=== PATIENT | female | born 1980 | race Caucasian/White ===

== ENCOUNTER 2024-07-03 00:04 | Emergency (ER) | payer MEDICARE, MEDICAID, SELFPAY ==
[2024-07-03 00:06] VITALS: BP 165/95; PULSE 88; RESP 16; TEMP 36; O2SAT 98
[2024-07-03 00:27] LABS: Absolute Neutrophil Count 11.8 X10^3/uL (2.0-7.7); Basophil# 0.02 X10^3/uL; Basophil% 0.2 % (0-1); Hematocrit 44.1 % (37-47); Hemoglobin 15.7 g/dL (12.0-15.0); Lymphocyte % 9.1 % (19-41); Mean Corp Hgb Conc 35.6 g/dL (32-36); Mean Corpuscular Hgb 31.2 pg (27.0-32.0); Mean Corpuscular Volume 87.7 fL (81-99); Monocyte# 0.22 X10^3/uL; Monocyte% 1.7 % (0-10); NRBC Flagged by Analyzer 0 % (0-5); Neutrophil # 11.76 X10^3/uL (2.7-7.7); Neutrophil % 88.6 % (47-70); Platelet Count 281 K/mm3 (150-450); RBC Distribution Width CV 13.5 % (11.6-14.6); RBC Distribution Width SD 43.2 fl (35.1-43.9); Red Blood Count 5.03 M/mm3 (4.2-5.4); White Blood Count 13.3 K/mm3 (4.4-11.0)
[2024-07-03 00:38] VITALS: BMI 31.6
[2024-07-03 00:57] LABS: Internal QC Validated? YES +Cl - CLEAR BKGD; Pregnancy, Serum, hCG Quali. NEGATIVE Negative
--- NOTE | 2024-07-03 01:25 | CT_ITS ---
PROCEDURE: ABDOMEN/PELVIS W IV CONT ONLY REASON FOR EXAM: ABD PAIN TECHNIQUE: Abdomen and pelvis CT with intravenous contrast. Coronal and sagittal reformatted images IV CONTRAST: 94 cc Isovue 370 COMPARISON: None. FINDINGS: Lung bases: Clear Liver: Unremarkable. Gallbladder: Status post cholecystectomy. Spleen: Unremarkable. Pancreas: Unremarkable. Adrenals: Unremarkable. Kidneys: Unremarkable. Bladder: Collapsed. Reproductive Organs: A couple of follicular cyst right ovary measuring up to 1.9 cm. No adjacent free fluid seen. Left ovary and uterus appear within limits Bowel: No bowel dilation, free air or free fluid.. Appendix: Normal caliber without secondary signs. Lymph nodes: No suspicious lymph node enlargement. Vasculature: Major vascular structures are unremarkable. Peritoneum / Retroperitoneum: No ascites. No free air. Bones: Right acetabular subchondral cyst axial 135. CT/Abdomen/Pelvis W IV Cont ONLY IMPRESSION: Study appears within limits as above. Status post cholecystectomy. One or more dose reduction techniques were used (e.g., Automated exposure contr ol, adjustment of the mA and/or kV according to patient size, use of iterative reconstruction technique). Reading Location: [id number]
[2024-07-03] MEDS: Ondansetron 4 MG/2 ML Vial IV (01:41)
[2024-07-03] MEDS: 0.9% Normal Saline (1000mL) 1,000 ML 999 ML IV (01:41)
[2024-07-03] MEDS: Morphine 4 MG/ML Syringe IV (01:41)
[2024-07-03 01:58] LABS: Lipase 45 U/L (13-75)
[2024-07-03 02:05] VITALS: BP 126/90; PULSE 81; RESP 16; O2SAT 99
[2024-07-03 02:08] LABS: ALB/GLOB Ratio 1.4 RATIO (0.9-2.4); AST(SGOT) 23 U/L (<=31); Alanine Aminotransfer ALT/SGPT 27 U/L (<=34); Albumin, Serum 4.8 g/dL (3.5-5.0); Alkaline Phosphatase 72 U/L (35-104); Anion Gap 18 (5-15); BUN 23 mg/dL (4-19); BUN/Creat Ratio 21.2 RATIO (10-20); Carbon Dioxide 18.9 mmol/L (21.0-32.0); Chloride 107 mmol/L (98-108); Creatinine, Serum 1.06 mg/dL (0.70-1.20); EST Glomerular Filtration Rate 67 (>60); Estimated Creatinine Clearance 74.15 ml/min (50-250); Globulin 3.3 g/dL (2.2-4.2); Glucose 205 mg/dL (70-99); Potassium 4.2 mmol/L (3.3-5.1); Protein, Total 8.1 g/dL (5.9-8.4); Sodium Level 144 mmol/L (133-145); Total Bilirubin 0.32 mg/dL (0.00-1.30)
[2024-07-03] MEDS: Lorazepam 2 MG/ML WCH Syringe 1 MG IV (02:16)
[2024-07-03 03:45] LABS: Bacteria 0 SEEN /hpf (None Seen); Mucous, Urine 0 SEEN /hpf (<or=2+); Squamous Epithelial Cells - UA 0 SEEN /hpf (5-10); White Blood Cells 0 SEEN /hpf (0-5)
[2024-07-03 03:47] LABS: Color, Urine Yellow (Yellow); Glucose, Dipstick Normal (Normal); Ketone-Dipstick Negative (Negative); Leukocyte Esterase-Dipstick Negative /ul (Negative); Nitrite-Dipstick Negative (Negative); Occult Blood-Urine 25 /ul (Negative); Protein-Dipstick 30 mg/dl (Negative); Urine Bilirubin Dipstick Negative (Negative); Urine Clarity Clear (Clear); Urine Urobilinogen Normal (Normal)
[2024-07-03 03:59] LABS: Red Blood Cells-Urine 0 SEEN /hpf (0-5)
[2024-07-03 04:00] VITALS: BP 128/76; PULSE 72; RESP 16; O2SAT 98
--- NOTE | 2024-07-03 04:09 | EX.ED.DYSGE1 ---
HPI History of Present Illness Chief Complaint: Nausea/Vomiting/Diarrhea Informant: patient and family Narrative Narrative: Patient is a 43-year-old female with past medical history of hypertension as well as anxiety. She states that she typically controls her anxiety with Ativan which she takes only every once in a while. She states roughly a week ago she ran out of her meds and missed her appointment to get it refilled. She states that she went to bed normally on Tuesday night but then awoke Tuesday morning around 6 AM as she normally would but noticed generalized abdominal discomfort and then developed bouts of vomiting and diarrhea. She denies any known sick contacts recent antibiotic use or travel outside the country. She states that she tried controlling her symptoms with [id number] medication and time but throughout the day the symptoms have not improved and therefore she comes in for evaluation Of note the patient's family member states that when she runs out of her anxiety medication these types of symptoms such as abdominal discomfort vomiting diarrhea and urinary frequency are common [facility] Medical History (Updated 07/03/24 @ 04:[address] Moses Vaz, DO) Cyclic vomiting syndrome Home Medications ?Medication ?Instructions ?Recorded ?Last Taken ?Type albuterol sulfate 90 mcg/actuation 1 puff inhalation Q4H PRN PRN 07/03/24 Unknown History aerosol inhaler dyspnea amlodipine 5 mg tablet 5 mg PO DAILY blood pressure 07/03/24 Unknown History atorvastatin 80 mg tablet 80 mg PO QHS cholesterol 07/03/24 Unknown History gabapentin 100 mg capsule 200 mg PO TID 07/03/24 Unknown History lamotrigine 150 mg tablet 150 mg PO BID 07/03/24 Unknown History lorazepam 0.5 mg tablet 0.5 mg PO DAILY PRN anxiety 07/03/24 Unknown History lorazepam 0.5 mg tablet (Ativan) 0.5 mg PO TID PRN anxiety 5 days 07/03/24 Unknown Rx #15 tabs metoprolol succinate 50 mg 50 mg PO DAILY blood pressure 07/03/24 Unknown History tablet,extended release 24 hr mycophenolate mofetil 500 mg tablet 1,000 mg PO BID 07/03/24 Unknown History ondansetron 4 mg disintegrating 4 mg PO TID PRN nausea and 07/03/24 Unknown Rx tablet vomiting #21 tabs pantoprazole 40 mg tablet,delayed 40 mg PO BID 07/03/24 Unknown History release Allergy/AdvReac Type Severity Reaction Status Date / Time bee venom protein (honey bee) Allergy Severe Anaphylaxis Verified 07/03/24 00:20 tomato AdvReac Intermediate GASTROINTESTINAL Verified 07/03/24 00:20 UPSET Family History no significant family his Surgical History (Updated 07/03/24 @ 00:40 by Leonardo Calderon) History of cholecystectomy Social History Smoking Status: Current every day smoker tobacco type: cigarettes ROS ROS ED Constitutional Constitutional ED: Denies chills or fever(s) Eyes Eyes: Denies blurry vision or change in vision ENT ENT ED: Denies sore throat Cardiovascular Cardiovascular: Denies chest pain Respiratory/Chest Respiratory/Chest: Denies cough or dyspnea Gastrointestinal Gastrointestinal: Reports abdominal pain, diarrhea, nausea and vomiting Genitourinary Genitourinary ED: Reports urinary frequency; Denies dysuria or hematuria Musculoskeletal Musculoskeletal: Denies myalgias Integumentary Denies rash Neurologic Neurologic: Denies headache(s) Psychiatric Psychiatric: Reports anxiety; Denies suicidal ideation or suicidal thoughts Hematologic/Lymphatic Hematologic/Lymphatic: Denies easy bleeding or easy bruising EXAM Physical Exam Const Vital Signs: 07/03/24 00:06 07/03/24 02:05 07/03/24 04:00 Temperature 96.8 F L Temperature Source Temporal Pulse Rate 88 81 72 Respiratory Rate 16 16 16 Blood Pressure 165/95 H 126/90 H 128/76 H Blood Pressure Mean 118 102 93 Pulse Ox 98 99 98 Oxygen Delivery Method Room Air Room Air Room Air 07/03/24 04:19 Temperature 97.7 F L Temperature Source Pulse Rate 77 Respiratory Rate 16 Blood Pressure 128/76 H Blood Pressure Mean 93 Pulse Ox 98 Oxygen Delivery Method Positive well nourished, well developed and obese General Appearance ED: well developed; Negative for pallor Nutritional Appearance: obese HEENT Reports dry mucous membranes HEENT Narrative: Mucous membranes are dry and tacky No secondary findings in the posterior pharynx to suggest infection Mouth ED: Yes dry mucous membranes Mouth: dry mucous membranes Eyes PERRL and EOMs intact bilaterally General Eye ED: Negative for scleral icterus Neck supple Neck Narrative: No nuchal rigidity or meningeal signs Resp normal respiratory effort and clear to auscultation bilaterally Cardio regular rate and regular rhythm Rate: other Other Details: Heart is regular rate and rhythm without murmurs rubs or gallop Radial and carotid pulses are equal and symmetric GI non-distended and no masses GI Narrative: Abdomen is soft and nondistended with hyperactive bowel sounds Patient has mild diffuse pain with palpation No voluntary guarding or rigidity or pulsatile mass Auscultation: hyperactive bowel sounds Palpation: soft Back/Spine no CVA tenderness Extremity normal to inspection Neuro oriented x3, CN's II-XII intact bilaterally and no sensory deficits noted Sensorium / Orientation: alert Motor Exam: strength 5/5 throughout Psych Mood & Affect: anxious Skin no rashes or lesions noted and No skin turgor normal Skin Narrative: Skin turgor is increased General Skin Exam: Negative for jaundice or pallor MDM MDM MDM Narrative Medical decision making narrative: Patient presented to the ER hypertensive but otherwise with stable vitals. She reported roughly 24 hours of recurrent vomiting and diarrhea. Differential diagnosis is for potential benzodiazepine withdrawal versus anxiety versus viral stomach infection such as norovirus or rotavirus. Patient her exam showing dehydration there is concern for acute kidney injury or clinically significant electrolyte abnormality. Patient also could have potential acute pancreatitis or complication or UTI. Patient blood work was obtained and shows a white count of 13.3 with left shift as neutrophil count is elevated at 12. This could be stress response but in order to ensure it is not from a secondary GI infection a CT scan of the abdomen pelvis with IV contrast was obtained. This revealed no acute finding. The remainder the blood work showed no elevation to the lipase going against pancreatitis and no signs of BORA or electrolyte abnormality. Urine sample also showed no sign of infection. After IV fluid Zofran and Ativan patient a resolution of symptoms and on reevaluation her abdomen remains soft and nonsurgical. Therefore at this time with resolution of symptoms and overall negative workup I do not feel there is need for further evaluation in ER and she is otherwise safe for discharge with symptomatic care History & Record Review Discussion w/independent historian: Patient and Family Lab Data Attestation: I reviewed the patient's lab results. Labs: Laboratory Results - last 24 hr 07/03/24 07/03/24 00:14 03:35 WBC 13.3 H RBC 5.03 Hgb 15.7 H Hct 44.1 MCV 87.7 MCH 31.2 MCHC 35.6 RDW Std Deviation 43.2 RDW Coeff of Raya 13.5 Plt Count 281 MPV 12.0 Immature Gran % (Auto) 0.400 Neut % (Auto) 88.6 H Lymph % (Auto) 9.1 L [place] % (Auto) 1.7 Eos % (Auto) 0.0 Baso % (Auto) 0.2 Absolute Neuts (auto) 11.8 H Absolute Lymphs (auto) 1.20 Nucleated RBC % 0 Sodium 144 Potassium 4.2 Chloride 107 Carbon Dioxide 18.9 L Anion Gap 18 H BUN 23 H Creatinine 1.06 Estim Creat Clear Calc 74.15 Est GFR (MDRD) Non-Af 67 BUN/Creatinine Ratio 21.2 H Glucose 205 H Calcium 10.0 Total Bilirubin 0.32 AST 23 ALT 27 Alkaline Phosphatase 72 Total Protein 8.1 Albumin 4.8 Globulin 3.3 Albumin/Globulin Ratio 1.4 Lipase 45 Serum , Qual NEGATIVE Urine Color Yellow Urine Clarity Clear Urine pH 7.0 Ur Specific [place] 1.010 Urine Protein 30 H Urine Glucose (UA) Normal Urine Ketones Negative Urine Occult Blood 25 H Urine Nitrite Negative Urine Bilirubin Negative Urine Urobilinogen Normal Ur Leukocyte Esterase Negative Urine RBC 0 SEEN Urine WBC 0 SEEN Ur Squamous Epith Cells 0 SEEN Urine Bacteria 0 SEEN Urine Mucus 0 SEEN Radiography Diagnostic Testing: Clinical Impression(s) from Imaging Studies Abdomen/Pelvis CT 07/03/24 01:25 IMPRESSION: Study appears within limits as above. Status post cholecystectomy. One or more dose reduction techniques were used (e.g., Automated exposure control, adjustment of the mA and/or kV according to patient size, use of iterative reconstruction technique). Reading Location: [facility] Discharge Plan Triage Chief Complaint: Nausea/Vomiting/Diarrhea ED Provider: Moses Vaz Dx/Rx/DC Orders Clinical Impression: Nausea vomiting and diarrhea, Dehydration, Hypertension, Anxiety Instructions: Dehydration, ED Gastroenteritis, Viral (Adult) Prescriptions: New ondansetron 4 mg tablet,disintegrating 4 mg PO TID PRN (Reason: nausea and vomiting) Qty: 21 0RF lorazepam [Ativan] 0.5 mg tablet 0.5 mg PO TID PRN (Reason: anxiety) 5 Days Qty: 15 0RF No Action lamotrigine 150 mg tablet 150 mg PO BID atorvastatin 80 mg tablet 80 mg PO QHS metoprolol succinate 50 mg tablet extended release 24 hr 50 mg PO DAILY amlodipine 5 mg tablet 5 mg PO DAILY mycophenolate mofetil 500 mg tablet 1,000 mg PO BID lorazepam 0.5 mg tablet 0.5 mg PO DAILY PRN (Reason: anxiety) pantoprazole 40 mg tablet,delayed release (DR/EC) 40 mg PO BID gabapentin 100 mg capsule 200 mg PO TID albuterol sulfate 90 mcg/actuation HFA aerosol inhaler 1 puff INHALATION Q4H PRN PRN (Reason: dyspnea) Primary Care Provider: NIKOLAY ELY Referrals: NIKOLAY ELY [Other] Print Language: Welsh Disposition Disposition: Home, Self Care Discharge Date/Time: 07/03/24 04:21
[2024-07-03 04:19] VITALS: BP 128/76; PULSE 77; RESP 16; TEMP 36.5; O2SAT 98
== END 2024-07-03 04:21 | disposition home or self-care (01) ==
PROVIDERS: Emergency Provider Emergency Medicine; Visit Provider Emergency Medicine
DX: R11.2 Nausea with vomiting, unspecified (principal); E86.0 Dehydration; R19.7 Diarrhea, unspecified; I10 Essential (primary) hypertension; F41.9 Anxiety disorder, unspecified; F17.210 Nicotine dependence, cigarettes, uncomplicated; E66.9 Obesity, unspecified; Z79.899 Other long term (current) drug therapy
CPT/HCPCS: 74177; 80053; 81001; 83690; 84703; 85025; 96361; 96374; 96375; 99283; Q9967; A4216; J2405

== ENCOUNTER 2024-12-08 22:55 | Emergency (ER) | payer MEDICARE, SELFPAY ==
[2024-12-08 22:56] VITALS: BP 156/106; PULSE 92; RESP 18; TEMP 36.8; O2SAT 98; BMI 30.9
--- OUTSIDE RECORDS SUMMARY | 2024-12-08 23:43 | XMS RPT_ITS | CCD ---
Author Organization [facility] Care Team Providers Care Freight Representative Name Role Phone Jaret Fernández (Hist) Unavailable [phone] Clarissa Olguin MD, K Unavailable [phone] Casi Gaytan PT (Hist) Unavailable [phone] Felecia Ely MD Primary Care Provider Jey Hutchinson MD Unavailable [phone] Unavailable Primary Care Provider Unavailabl e Jaret Fernández (Hist) Unavailable [phone] Clarissa Olguin MD, K Unavailable [phone] Casi Gaytan PT (Hist) Unavailable [phone] Felecia Ely MD Primary Care Provider Jey Hutchinson MD Unavailable [phone] Unavailable Primary Care Provider UnavailCasi Rae PT (Hist) Unavailable [phone] Jey Hutchinson MD Unavailable [phone] ALZOUBI, LINK Primary Care Unavailable KATIE ZHONG Attending Unavailable KATIE ZHONG Referring Unavailable ALZOUBI, LINK Primary Care Unavailable JARET CUI Unavailable ALZOUBI, LINK Primary Care Unavailable ALZOUBI, LINK Referring Unavailable ALZOUBI, LINK Primary Care Unavailable ALZOUBI, LINK Primary Care Unavailable HAFERNANDEZ ALI, KATIE Referring Unavailable Unavailable Primary Care Provider Unavailabl e PROVIDER, UNKNOWN Admitting Unavailable PHIL CAGLE Attending Unavailable Jaret Fernández MD Unavailable Felecia Ely MD Primary Care Provider [phone] Clarissa Olguin MD, K Unavailable Unavailable Primary Care Provider UnavailDr. Moses Urena DO Emergency Provider FELECIA ELY Primary Care Provider Moses Vaz Attending Unavailable LUISITO MENDOZA Primary Care Unavailable FELECIA ELY Attending Unavailable FELECIA ELY Primary Care Unavailable FELECIA ELY Admitting Unavailable MAME CAUSEY Consulting Unavailable FELECIA ELY Primary Care Unavailable RAMSES ALLEN Admitting Unavailable RAMSES ALLEN Attending Unavailable RAMSES ALLEN Consulting Unavailable Allergies Allergy Classification Reported Allergen(s) Allergy Type Date of Onset Reaction(s) Facility lurasidone (1 source) lurasidone Drug Allergy 9 [facility] Work Phone: (20 sources) lurasidone; Translations: [LURASIDONE] Drug Allergy 9 [facility] Work Phone: (20 sources) tomato allergenic extract; Translations: [TOMATO] Drug Allergy 3 GI Upset [facility] (20 sources) Bees; Translations: [BEES] Allergy to substance 4 Swelling [facility] (20 sources) Bee Sting Propensity to adverse reactions 4 Swelling [facility] (20 sources) Tomatoes Propensity to adverse reactions 3 [facility] (1 source) bee venom protein (honey bee) Allergy to substance 5 Anaphylaxis [facility] (1 source) bee venom protein (honey bee) Drug allergy (disorder) 5 [facility] Repository Medications Current Medications Medication Drug Class(es) Dates Sig (Normalized) Sig (Original) acetaminophen 325 mg oral tablet (20 sources) Start: 08-30-2018 take 2 tablets by mouth every six hours acetaminophen (TYLENOL) 325 mg tablet Take 2 tablets by mouth every 6 hours. 0 08/30/2018 Active Comment on above: Take 2 tablets by [facility] every 6 hours. [id number] actuat albuterol 0.09 mg/actuat metered dose inhaler (20 sources) beta2-Adrenergic Agonist Start: 07-17-2024 take 1-2 puff(s) by mouth every six hours as needed albuterol HFA (PROVENTIL HFA, VENTOLIN HFA) 90 mcg/actuation inhaler INHALE 1-2 PUFF(S) BY MOUTH EVERY 6 HOURS NEEDED *NEW PRESCRIPTION REQUEST* 33.5 g 07/17/2024 Active Start: 07-03-2024 Albuterol Sulf ate 90 mcg/actuation HFA aerosol inhaler Active 1 NMA INHALATION EVERY 4 HOURS NEEDED as needed for dyspnea July 03, 2024 12:00am Start: 10-11-2022 End: 07-17-2024 take 2 puff(s) by inhalation every four hours as needed for wheezing albuterol HFA (PROVENTIL HFA, VENTOLIN HFA) 90 mcg/actuation inhaler INHALE TWO (2) PUFFS EVERY 4 HOURS NEEDED FOR WHEEZING OR SHORTNESS OF BREATH 8.5 g 2 09/14/2023 07/17/2024 Discontinued Start: 08-05-2022 End: 10-11-2022 take 2 puff(s) by mouth every four hours as needed for wheezing albuterol HFA (PROVENTIL HFA, VENTOLIN HFA) 90 mcg/actuation inhaler INHALE 2 PUFFS BY MOUTH EVERY 4 HOURS NEEDED FOR WHEEZING OR SHORTNESS OF BREATH 8.5 g 1 08/05/2022 10/11/2022 Discontinued Start: 07-12-2022 End: 08-05-2022 take 2 puff(s) by mouth every four hours as needed for wheezing albuterol HFA (PROVENTIL HFA, VENTOLIN HFA) 90 mcg/actuation inhaler INHALE TWO (2) PUFFS BY MOUTH INSTRUCTED EVERY 4 HOURS NEEDED FOR WHEEZING/SHORTNESS OF BREATH 18 g 0 07/12/2022 08/05/2022 Discontinued Start: 07-06-2022 End: 07-12-2022 take 2 puff(s) by inhalation every four hours as needed for wheezing albuterol HFA (VENTOLIN HFA) 90 mcg/actuation inhaler Inhale 2 Puffs as instructed every 4 hours as needed for wheezing/shortness of breath. 8 g 0 07/06/2022 07/12/2022 Discontinued Start: 01-12-2017 take 2 puff(s) by in halation once daily as needed albuterol sulfate 90 mcg/actuation inhaler Inhale 2 Puffs into the lungs once daily as needed 01/12/2017 Active Start: 01-12-2017 End: 07-06-2022 take 2 puff(s) by inhalation every four hours as needed for wheezing albuterol HFA (VENTOLIN HFA) 90 mcg/actuation inhaler Inhale 2 Puffs as instructed every 4 hours as needed for Wheezing/Shortness of Breath. 1 Inhaler 11 01/12/2017 07/06/2022 Discontinued Comment on above: Inhale 2 Puffs as in structed every 4 hours as needed for Wheezing/Shortness of Breath. Inhale 2 Puffs into the lungs once daily as needed INHALE TWO (2) PUFFS BY MOUTH INSTRUCTED EVERY 4 HOURS NEEDED FOR WHEEZING/SHORTNESS OF BREATH INHALE 2 PUFFS BY MO UTH EVERY 4 HOURS NEEDED FOR WHEEZING OR SHORTNESS OF BREATH INHALE TWO (2) PUFFS EVERY 4 HOURS NEEDED FOR WHEEZING OR SHORTNESS OF BREATH cloNIDine (2 sources) Central alpha-2 Adrenergic Agonist CLONIDINE HCL ORAL Take by mouth. 0 Active lamoTRIgine 150 mg oral tablet (20 sources) Mood Stabilizer, Anti-epileptic Agent Start: 07-12-19 End: 07-18-19 take 1 tablet by mouth every twelve hours lamoTRIgine (LAMICTAL) 150 mg tablet Take 1 tablet by mouth every 12 hours. 60 tablet 2 07/11/2024 07/17/2024 Discontinued Start: 02-20-2019 End: 07-11-2024 take 1 tablet by mouth twice daily lamoTRIgine (LAMICTAL) 150 mg tablet Indications: Bipolar II disorder ([facility]) Take 1 Tablet by mouth 2 (two) times daily for 60 days 60 Tablet 1 11/01/2023 Active Start: 07-16-2008 take 1 tablet by ludmila th once daily lamotrigine (LAMICTAL) 200 MG tablet Take 1 Tab by mouth daily. 30 3 07/16/2008 Active Comment on above: Take 1 tablet by ludmila th twice daily. Take 1 Tablet by ludmila th 2 (two) times daily for 60 days TAKE 1 TABLET BY LUDMILA TH TWICE DAILY LORazepam 0.5 mg oral tablet (20 sources) Benzodiazepine Start: take 1 tablet by mouth once daily as needed for anxiety Lorazepam 0.5 mg tablet Active 0.5 mg PO DAILY as needed for anxiety July 03, 2024 12:00am Start: 07-03-2024 take 1 tablet by ludmila th three times daily as needed for anxiety Lorazepam (Ativan) 0.5 mg tablet Active 0.5 mg PO THREE TIMES A DAY as needed for anxiety 15 5 July 03, 2024 12:00am Start: 11-01-2023 End: 12-01-2023 take 1 tablet by mouth once daily as needed for anxiety and anxiety, then take 1 tablet by mouth once daily as needed for anxiety and anxiety LORazepam (ATIVAN) 0.5 mg tablet Indications: Generalized anxiety disorder , Panic disorder , Posttraumatic stress disorder Take 1 Tablet by mouth once daily as needed for anxiety (take 1 tablet daily as needed for anxiety) for up to 30 days 7 Tablet 11/01/2023 12/01/2023 Active Start: 10-26-2018 End: 11-01-2023 take 1 tablet by mouth once daily as needed for anxiety and anxiety, then take 1 tablet by mouth once daily as needed for anxiety and anxiety LORazepam (ATIVAN) 1 mg tablet Indications: Generalized anxiety disorder , Panic disorder , Posttraumatic stress disorder Take 1 Tablet by mouth once daily as needed for anxiety (take 1 tablet daily as needed for anxiety) for up to 30 days 10 Tablet 0 11/04/2022 Active Comment on above: Take 1 mg by mouth a s needed. 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 ondansetron 4 mg disintegrating oral tablet (20 sources) Serotonin-3 Receptor Antagonist Start: 07-18-19 take 1 tablet by mouth every eight hours as needed ondansetron orally disintegrating (ZOFRAN ODT) 4 mg disintegrating tablet Take 1 tablet by mouth every 8 hours as needed for nausea/vomiting. 20 tablet 07/17/2024 Active Start: 07-03-2024 take 1 tablet by ludmila th three times daily as needed for nausea and vomiting Ondansetron 4 mg tablet,disintegrating Active 4 mg PO THREE TIMES A DAY as needed for nausea and vomiting July 03, 2024 4:09am Start: 06-20-2023 End: 06-20-2023 ondansetron (ZOFRAN) 4 MG/2M L injection Start: 08-17-2022 End: 07-17-2024 take 1 tablet by mouth every six hours as needed ondansetron orally disintegrating (ZOFRAN ODT) 4 mg disintegrating tablet Take 1 tablet by mouth every 6 hours as needed for nausea/vomiting. 8 tablet 07/03/2023 07/17/2024 Discontinued Start: 10-27-2018 ondansetron HC L (ZOFRAN) 4 mg tablet 4 mg 10/27/2018 Active Comment on above: 4 mg Take 1 tablet by ludmila th every 6 hours as needed. Take 1 tablet by ludmila th every 6 hours as needed for nausea/vomiting. pantoprazole 40 mg delayed release oral tablet (20 sources) Proton Pump Inhibitor Start: take 1 tablet by mouth twice daily pantoprazole DR (PROTONIX) 40 mg tablet TAKE ONE (1) TABLET BY MOUTH TWICE DAILY *NEW PRESCRIPTION REQUEST* 180 tablet 07/17/2024 Active Start: 07-11-2024 End: 07-17-2024 take 1 tablet by mouth every twelve hours pantopraz[address] (PROTONIX) 40 mg tablet Take 1 tablet by mouth every 12 hours. 60 tablet 2 07/11/2024 07/17/2024 Discontinued Start: 02-23-2019 pantoprazole ( PROTONIX) 40 mg EC tablet 2 02/23/2019 Active Start: 02-23-2019 End: 07-11-2024 take 1 tablet by mouth twice daily Pantoprazole 40 mg tablet,delayed release (DR/EC) Active 40 mg PO TWICE A DAY July 03, 2024 12:00am Comment on above: TAKE ONE (1) TABLET BY MOUTH TWICE DAILY TAKE 1 TABLET BY LUDMILA TH TWICE DAILY microencapsulated potassium chloride 20 meq extended release oral tablet (1 source) Start: End: take 1 tablet by mouth once daily potassium chloride ER (KLOR-CON M20) 20 mEq tablet Take 1 tablet by mouth once daily for 3 days. 3 tablet 0 07/19/2023 07/22/2023 Active Comment on above: Take 1 tablet by ludmila th once daily for 3 days. Completed/Discontinued Medications Medication Drug Class(es) Dates Sig (Normalized) Sig (Original) amLODIPine 5 mg oral tablet (20 sources) Dihydropyridine Calcium Channel Oneil Start: 02-24-2019 End: 07-17-2024 amLODIPine (NORVASC) 5 mg tablet 1 02/24/2019 Active Comment on above: TAKE 1 TABLET BY LUDMILA TH EVERY DAY Take 1 tablet by ludmila th once daily. 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 90 tablet 0 09/14/2018 11/04/2023 Discontinued Comment on above: Take 1 tablet by ludmila th once daily. atorvastatin 80 mg oral tablet (20 sources) HMG-CoA Reductase Inhibitor Start: 05-29-2018 End: 07-17-2024 take 1 tablet by mouth once daily atorvastatin (LIPITOR) 80 mg tablet Take 80 mg by mouth once daily 0 05/29/2018 Active Comment on above: TAKE 1 TABLET BY LUDMILA TH EVERY DAY TAKE 1 TABLET BY LUDMILA TH ONCE DAILY *EMERGENCY REFILL* Take 80 mg by mouth once daily TAKE 1 TABLET BY LUDMILA TH ONCE DAILY Benzocaine (1 source) Standardized Chemical Allergen Start: 12-02-2023 End: 12-02-2023 TOPICAL, X (OR/PROCEDURE) PRN, Starting on Tue12/02/23 at 1010, Until Tue12/02/23 at 1010, Intraprocedure diphenhydrAMINE (1 source) Histamine-1 Receptor Antagonist Start: 12-02-2023 End: 12-02-2023 INTRAVENOUS, X (OR/PROCEDURE) PRN, Starting on Tue12/02/23 at 1012, Until Tue12/02/23 at 1012, Intraprocedure ergocalciferol 1.25 mg oral capsule (20 sources) Provitamin D2 Compound Start: 05-29-2018 End: 07-11-2024 take 1 capsule by mouth every week ergocalciferol, vitamin D2, (VITAMIN D2) 50,000 unit capsule Take 1 Cap by mouth once a week 3 05/29/2018 Active Comment on above: TAKE 1 CAPSULE BY [facility] ONCE WEEKLY Take 1 Cap by mouth once a week TAKE 1 CAPSULE BY [facility] ONCE WEEKLY *EMERGENCY REFILL* 1 ml fentaNYL 0.05 mg/ml injection (1 source) Opioid Agonist Start: 12-02-2023 End: 12-02-2023 INTRAVENOUS, X (OR/PROCEDURE) PRN, Starting on Tue12/02/23 at 1012, Until Tue12/02/23 at 1012, Intraprocedure fluticasone propionate 0.05 mg/actuat metered dose nasal spray (20 sources) Corticosteroid Start: 01-29-2019 fluticasone propionate (FLONASE) 50 mcg/actuation nasal spray SHAKE LQ AND U 1 SPR IEN BID 0 01/29/2019 Active Comment on above: SHAKE LQ AND U 1 SPR IEN BID gabapentin 100 mg oral capsule (20 sources) Anti-epileptic Agent Start: 03-05-2022 End: 11-28-2024 take 2 capsules by mouth three times daily gabapentin (NEURONTIN) 100 mg capsule Take 2 capsules by mouth three times a day for 30 days. 180 capsule 10/01/2024 10/29/2024 Discontinued Start: 04-28-2021 End: 02-24-2022 take 2 capsules by mouth three times daily gabapentin (NEURONTIN) 100 mg capsule TAKE 2 CAPSULES BY MOUTH THREE TIMES A DAY 180 capsule 0 01/25/2022 02/24/2022 Active Comment on above: TAKE 2 CAPSULES BY M OUTH THREE TIMES A DAY Take 200 mg by mouth 3 (three) times daily Take 2 capsules by m outh three times daily for 28 days. iv contrast (will be provided with radiology test) (20 sources) Start: 11-04-19 End: 11-04-19 inject 1 dose intravenously once iv contrast (will be provided with radiology test) MRI Brain Inject, intravenously, once for 1 dose.No IV access, insert saline lock prior to beginning of sedation, infusion, injection of imaging exam.Discontinue saline lock post exam. If Pt. has a central line or IVAD, may access for administration according to line specific nursing protocol.Once exam is complete flush line and de-access according to line specific nursing protocol in the MR contrast administration guidelines link 1 Each 0 11/03/2022 11/04/2023 Discontinued Start: 11-03-2022 End: 11-04-2023 iv contrast (will be provide d with radiology test) MRA Brain Inject, intravenously, once for 1 dose. No IV access, insert saline lock prior to the beginning of sedation, infusion, injection of imaging exam. Discontinue saline lock post exam. If Pt. has a central line or IVAD, may access for administration according to line specific nursing protocol. Once exam is complete flush line and de-access according to line specific nursing protocol in the MR contrast administration guidelines link. 1 Each 0 11/03/2022 11/04/2023 Discontinued Start: 11-03-2022 inject 1 dose intravenously on ce iv contrast (will be provided with radiology test) MRI Brain Inject, intravenously, once for 1 dose.No IV access, insert saline lock prior to beginning of sedation, infusion, injection of imaging exam.Discontinue saline lock post exam. If Pt. has a central line or IVAD, may access for administration according to line specific nursing protocol.Once exam is complete flush line and de-access according to line specific nursing protocol in the MR contrast administration guidelines link 1 Each 0 11/03/2022 Active Start: 11-03-2022 iv contrast (w ill be provided with radiology test) MRA Brain Inject, intravenously, once for 1 dose. No IV access, insert saline lock prior to the beginning of sedation, infusion, injection of imaging exam. Discontinue saline lock post exam. If Pt. has a central line or IVAD, may access for administration according to line specific nursing protocol. Once exam is complete flush line and de-access according to line specific nursing protocol in the MR contrast administration guidelines link. 1 Each 0 11/03/2022 Active Start: 02-21-2020 End: 11-04-2023 iv contrast (will be provide d with radiology test) MRA Brain Inject, intravenously, once for 1 dose. No IV access, insert saline lock prior to the beginning of sedation, infusion, injection of imaging exam. Discontinue saline lock post exam. If Pt. has a central line or IVAD, may access for administration according to line specific nursing protocol. Once exam is complete flush line and de-access according to line specific nursing protocol in the MR contrast administration guidelines link. 1 Each 0 02/21/2020 11/04/2023 Discontinued Start: 02-21-2020 End: 11-04-2023 inject 1 dose intravenously once iv contrast (will be provided with radiology test) MRI Brain Inject, intravenously, once for 1 dose.No IV access, insert saline lock prior to beginning of sedation, infusion, injection of imaging exam.Discontinue saline lock post exam. If Pt. has a central line or IVAD, may access for administration according to line specific nursing protocol.Once exam is complete flush line and de-access according to line specific nursing protocol in the MR contrast administration guidelines link 1 Each 0 02/21/2020 11/04/2023 Discontinued Start: 02-21-2020 iv contrast (w ill be provided with radiology test) MRA Brain Inject, intravenously, once for 1 dose. No IV access, insert saline lock prior to the beginning of sedation, infusion, injection of imaging exam. Discontinue saline lock post exam. If Pt. has a central line or IVAD, may access for administration according to line specific nursing protocol. Once exam is complete flush line and de-access according to line specific nursing protocol in the MR contrast administration guidelines link. 1 Each 0 02/21/2020 Active Start: 02-21-2020 inject 1 dose intravenously on ce iv contrast (will be provided with radiology test) MRI Brain Inject, intravenously, once for 1 dose.No IV access, insert saline lock prior to beginning of sedation, infusion, injection of imaging exam.Discontinue saline lock post exam. If Pt. has a central line or IVAD, may access for administration according to line specific nursing protocol.Once exam is complete flush line and de-access according to line specific nursing protocol in the MR contrast administration guidelines link 1 Each 0 02/21/2020 Active Start: 10-04-2019 End: 11-04-2023 inject 1 dose intravenously once iv contrast (will be provided with radiology test) MRI Brain Inject, intravenously, once for 1 dose.No IV access, insert saline lock prior to beginning of sedation, infusion, injection of imaging exam.Discontinue saline lock post exam. If Pt. has a central line or IVAD, may access for administration according to line specific nursing protocol.Once exam is complete flush line and de-access according to line specific nursing protocol in the MR contrast administration guidelines link 1 Each 0 10/04/2019 11/04/2023 Discontinued Start: 10-04-2019 End: 11-04-2023 iv contrast (will be provide d with radiology test) MRA Brain Inject, intravenously, once for 1 dose. No IV access, insert saline lock prior to the beginning of sedation, infusion, injection of imaging exam. Discontinue saline lock post exam. If Pt. has a central line or IVAD, may access for administration according to line specific nursing protocol. Once exam is complete flush line and de-access according to line specific nursing protocol in the MR contrast administration guidelines link. 1 Each 0 10/04/2019 11/04/2023 Discontinued Start: 10-04-2019 inject 1 dose intravenously on ce iv contrast (will be provided with radiology test) MRI Brain Inject, intravenously, once for 1 dose.No IV access, insert saline lock prior to beginning of sedation, infusion, injection of imaging exam.Discontinue saline lock post exam. If Pt. has a central line or IVAD, may access for administration according to line specific nursing protocol.Once exam is complete flush line and de-access according to line specific nursing protocol in the MR contrast administration guidelines link 1 Each 0 10/04/2019 Active Start: 10-04-2019 iv contrast (w ill be provided with radiology test) MRA Brain Inject, intravenously, once for 1 dose. No IV access, insert saline lock prior to the beginning of sedation, infusion, injection of imaging exam. Discontinue saline lock post exam. If Pt. has a central line or IVAD, may access for administration according to line specific nursing protocol. Once exam is complete flush line and de-access according to line specific nursing protocol in the MR contrast administration guidelines link. 1 Each 0 10/04/2019 Active Comment on above: MRI Brain Inject, in travenously, once for 1 dose.No IV access, insert saline lock prior to beginning of sedation, infusion, injection of imaging exam.Discontinue saline lock post exam. If Pt. has a central line or IVAD, may access for administration according to line specific nursing protocol.Once exam is complete flush line and de-access according to line specific nursing protocol in the MR contrast administration guidelines link MRA Brain Inject, in travenously, once for 1 dose. No IV access, insert saline lock prior to the beginning of sedation, infusion, injection of imaging exam. Discontinue saline lock post exam. If Pt. has a central line or IVAD, may access for administration according to line specific nursing protocol. Once exam is complete flush line and de-access according to line specific nursing protocol in the MR contrast administration guidelines link. lidocaine 0.04 mg/mg medicated patch (20 sources) Antiarrhythmic, Amide Local Anesthetic Start: 2020 apply 1 dose transdermal route once daily lidocaine (SALONPAS) 4 % patch Apply 1 Patch as directed once daily. 5 Patch 0 01/13/2021 Active Comment on above: Apply 1 Patch as dir ected once daily. lurasidone hydrochloride 40 mg oral tablet (20 sources) Atypical Antipsychotic Start: 2023 End: 2023 take 1 tablet by mouth once daily in the evening lurasidone (LATUDA) 40 mg tablet Indications: Bipolar II disorder ([facility]) Take 1 Tablet by mouth every evening for 60 days 30 Tablet 1 11/01/2023 Active Comment on above: TAKE 1 TABLET BY LUDMILA TH AT 6PM IN THE EVENING FOR MOOD Take 1 Tablet by ludmila th every evening for 60 days 24 hr metoprolol succinate 50 mg extended release oral tablet (20 sources) beta-Adrenergic Oneil Start: 2018 End: 2024 take 1 tablet by mouth once daily metoprolol succinate (TOPROL-XL) 50 mg 24 hr tablet Take 50 mg by mouth once daily 0 05/10/2018 Active Comment on above: TAKE 1 TABLET BY LUDMILA TH ONCE DAILY Take 1 tablet by ludmila th once daily. TAKE 1 TABLET BY LUDMILA TH ONCE DAILY *EMERGENCY REFILL* TAKE 1 TABLET BY LUDMILA TH EVERY DAY Take 50 mg by mouth once daily 5 ml midazolam 1 mg/ml injection (1 source) Benzodiazepine Start: 2023 End: 2023 INTRAVENOUS, X (OR/PROCEDURE) PRN, Starting on Tue12/02/23 at 1012, Until Tue12/02/23 at 1019, Intraprocedure QUEtiapine 50 mg oral tablet (16 sources) Atypical Antipsychotic Start: 2022 End: 2023 take 1 tablet by mouth twice daily QUEtiapine (SEROQUEL) 25 mg tablet Take 1 tablet by mouth two times a day. 60 tablet 0 04/09/2023 11/04/2023 Discontinued Start: 04-09-2023 End: 11-04-2023 take 1 tablet by mouth once daily at bedtime QUEtiapine (SEROQUEL) 50 mg tablet Take 1 tablet by mouth daily at bedtime. 30 tablet 0 04/09/2023 11/04/2023 Discontinued Comment on above: Take 1 tablet by ludmila th two times a day. Take 1 tablet by ludmila th daily at bedtime. rOPINIRole 0.25 mg oral tablet (20 sources) Nonergot Dopamine Agonist Start: 02-24-2019 End: 07-17-2024 rOPINIRole (REQUIP) 0.25 mg tablet 1 02/24/2019 Active Comment on above: TAKE 1 TABLET BY LUDMILA TH EVERY NIGHT AT BEDTIME Take 1 tablet by ludmila th daily at bedtime. TAKE 1 TABLET BY LUDMILA TH EVERY NIGHT AT BEDTIME *EMERGENCY REFILL* TAKE 1 TABLET BY LUDMILA TH EVERYDAY AT BEDTIME Take 1 tablet by ludmila th once daily as needed. TAKE 1 TABLET BY LUDMILA TH NIGHTLY AT BEDTIME 50 ml sodium chloride 9 mg/ml injection (1 source) Start: 06-20-2023 End: 06-20-2023 sodium chloride 0.9 % iv bolus tiZANidine 4 mg oral capsule (20 sources) Central alpha-2 Adrenergic Agonist Start: 01-13-2021 take 1 capsule by mouth every eight hours as needed tiZANidine HCl (ZANAFLEX) 4 mg capsule Take 1 capsule by mouth three times daily as needed for muscle spasm. 12 capsule 0 01/13/2021 Active Comment on above: Take 1 capsule by mo uth three times daily as needed for muscle spasm. Problems Active Problems Problem Classification Problem Date Documented Da te Episodic/Chronic Acute cerebrovascular disease (20 sources) Cerebrovascular accident; Translations: [Cerebral infarction due to unspecified occlusion or stenosis of left middle cerebral artery] Onset: 12-12-2015 Resolved: 02-17-2017 11-11-2017 Chronic Adjustment disorders (20 sources) Bereavement; Translations: [Adjustment disorder, unspecified] Onset: 04-08-2023 05-10-2023 Chronic Anxiety disorders (20 sources) Generalized anxiety disorder; Translations: [Generalized anxiety disorder] Onset: 10-09-2016 Chronic Chronic obstructive pulmonary disease and bronchiectasis (1 source) Chronic obstructive lung disease; Translations: [Chronic obstructive pulmonary disease, unspecified] 07-11-2024 Chronic Conditions associated with dizziness or vertigo (3 sources) Dizziness; Translations: [Dizziness and giddiness] 07-02-2023 Episodic Diabetes mellitus without complication (1 source) Type 1 diabetes mellitus without complication; Translations: [Type 1 diabetes mellitus without complications] Chronic Diseases of white blood cells (20 sources) Leukocytosis; Translations: [Elevated white blood cell count, unspecified] Onset: 05-27-2018 04-17-2019 Chronic Disorders of lipid metabolism (20 sources) Familial combined hyperlipidemia; Translations: [Other hyperlipidemia] Onset: 11-11-2017 04-17-2019 Chronic Essential hypertension (20 sources) Hypertensive disorder; Translations: [Essential (primary) hypertension] Onset: 06-15-2016 04-17-2019 Chronic Genitourinary symptoms and ill-defined conditions (1 source) Hematuria, unspecified; Translations: [Hematuria, unspecified type] Onset: 10-20-2024 Episodic Immunizations and screening for infectious disease (1 source) Vaccination needed; Translations: [Encounter for immunization] 07-19-2023 Episodic Late effects of cerebrovascular disease (2 sources) Unspecified sequelae of cerebral infarction; Translations: [Other late effects of cerebrovascular disease] Onset: 06-20-2023 06-20-2023 Chronic Mood disorders (20 sources) Mood disorder; Translations: [Unspecified mood [affective] disorder] Onset: 02-18-2019 Resolved: 02-20-2019 02-20-2019 Chronic Other and ill-defined cerebrovascular disease (20 sources) Intracranial aneurysm; Translations: [Cerebral aneurysm, nonruptured] Onset: 01-08-2016 01-08-2016 Chronic Other and ill-defined cerebrovascular disease (20 sources) Cerebral arteritis; Translations: [Cerebral arteritis, not elsewhere classified] Onset: 08-12-2016 11-11-2017 Chronic Other circulatory disease (20 sources) Isolated angiitis of central nervous system; Translations: [Arteritis, unspecified] Onset: 12-15-2015 Resolved: 10-05-2019 Chronic Other circulatory disease (1 source) Arteritis, unspecified; Translations: [Vasculitis, 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)] Onset: 11-03-2022 Chronic Other diseases of kidney and ureters (1 source) Disorder of kidney and ureter, unspecified; Translations: [Disorder of kidney and ureter, unspecified] Onset: 06-20-2023 Episodic Other ear and sense organ disorders (20 sources) Sensorineural hearing loss, bilateral; Translations: [Sensorineural hearing loss, bilateral] Onset: 11-14-2018 11-14-2018 Chronic Other gastrointestinal disorders (1 source) Functional finding; Translations: [Dysphagia, unspecified] 12-02-2023 Episodic Other injuries and conditions due to external causes (1 source) Other injury of unspecified body region, initial encounter; Translations: [Muscle strain] Onset: 10-20-2024 Episodic Other non-traumatic joint disorders (1 source) Pain in right shoulder; Translations: [Right shoulder pain] Onset: 10-20-2024 Episodic Other nutritional; endocrine; and metabolic disorders (20 sources) Obese class I; Translations: [Obesity, unspecified] Onset: 11-22-2018 02-20-2019 Chronic Other nutritional; endocrine; and metabolic disorders (20 sources) Obese class II; Translations: [Obesity, unspecified] Onset: 10-06-2020 10-06-2020 Chronic Other nutritional; endocrine; and metabolic disorders (20 sources) Morbid obesity; Translations: [Morbid (severe) obesity due to excess calories] Onset: 11-09-2017 03-19-2019 Chronic Personality disorders (20 sources) Borderline personality disorder; Translations: [Borderline personality disorder] Onset: 02-20-2019 04-17-2019 Chronic Spondylosis; intervertebral disc disorders; other back problems (1 source) Cervicalgia; Translations: [Neck pain] Onset: 10-20-2024 Episodic Substance-related disorders (20 sources) Nicotine dependence; Translations: [Nicotine dependence, unspecified, uncomplicated] Onset: 11-09-2017 02-20-2019 Chronic Syncope (2 sources) Syncope and collapse; Translations: [Syncope and collapse] Onset: 06-20-2023 06-20-2023 Episodic Past or Other Problems Problem Classification Problem Date Documented Da te Episodic/Chronic Abdominal pain (12 sources) Right upper quadrant pain; Translations: [Right upper quadrant pain] Onset: 02-17-2024 11-04-2023 Episodic Acute and unspecified renal failure (20 sources) Acute injury of kidney; Translations: [Acute kidney failure, unspecified] Onset: 08-20-2016 Resolved: 04-09-2023 04-17-2019 Episodic Administrative/social admission (20 sources) Other reduced mobility; Translations: [Other specified conditions influencing health status] Onset: 12-12-2017 Resolved: 04-08-2023 12-12-2017 Episodic Asthma (20 sources) Mild intermittent asthma; Translations: [Mild intermittent asthma, uncomplicated] Onset: 12-15-2015 Resolved: 02-20-2019 Chronic Biliary tract disease (20 sources) Chronic cholecystitis; Translations: [Chronic cholecystitis] Onset: 08-15-2017 Resolved: 08-24-2017 08-24-2017 Episodic Fluid and electrolyte disorders (20 sources) Hypokalemia; Translations: [Hypokalemia] Onset: 06-15-2016 Resolved: 04-09-2023 04-09-2023 Episodic Malaise and fatigue (20 sources) Right hemiparesis; Translations: [Weakness] Onset: 11-08-2017 11-08-2017 Episodic Nausea and vomiting (20 sources) Nausea and vomiting; Translations: [Nausea with vomiting, unspecified] Onset: 06-16-2016 Resolved: 10-05-2019 10-05-2019 Episodic Nonspecific chest pain (20 sources) Chest pain; Translations: [Chest pain, unspecified] Onset: 08-20-2016 Resolved: 09-19-2016 04-09-2023 Episodic Nutritional deficiencies (20 sources) Vitamin D deficiency; Translations: [Vitamin D deficiency, unspecified] Onset: 06-16-2016 Resolved: 08-23-2016 Chronic Other aftercare (20 sources) Drug therapy status; Translations: [Other dedicated intermodal truck driver (current) drug therapy] Onset: 02-17-2017 02-17-2017 Episodic Other aftercare (20 sources) Long-term current use of drug therapy; Translations: [Other dedicated intermodal truck driver (current) drug therapy] Onset: 02-17-2017 03-19-2019 Episodic Other aftercare (20 sources) Drug therapy finding; Translations: [Other fci (current) drug therapy] Onset: 02-17-2017 02-17-2017 Episodic Other aftercare (20 sources) Long-term current use of systemic steroid; Translations: [FCI (current) use of systemic steroids] Onset: 06-15-2016 Resolved: 06-16-2017 06-16-2017 Episodic Other aftercare (13 sources) Long-term current use of cyclophosphamide; Translations: [Encounter for therapeutic drug level monitoring] Onset: 03-29-2016 Resolved: 02-17-2017 02-17-2017 Episodic Other circulatory disease (20 sources) Stenosis of celiac artery; Translations: [Stricture of artery] Onset: 01-08-2016 Resolved: 03-03-2016 03-03-2016 Chronic Other circulatory disease (20 sources) Vasculitis; Translations: [Arteritis, unspecified] Onset: 03-25-2016 Resolved: 10-28-2016 10-28-2016 Chronic Other circulatory disease (20 sources) History of cerebrovascular accident; Translations: [Personal history of transient ischemic attack (TIA), and cerebral infarction without residual deficits] Onset: 08-20-2016 04-17-2019 Episodic Other connective tissue disease (20 sources) Weakness of hand; Translations: [Other symptoms and signs involving the musculoskeletal system] Onset: 01-08-2016 Resolved: 03-03-2016 03-03-2016 Episodic Other connective tissue disease (20 sources) Swelling of right lower limb; Translations: [Other specified soft tissue disorders] Onset: 08-20-2016 Resolved: 08-23-2016 08-23-2016 Episodic Other diseases of kidney and ureters (1 source) Unspecified disorder of kidney and ureter 06-20-2023 Episodic Other gastrointestinal disorders (1 source) Diarrhea, unspecified; Translations: [Diarrhea, unspecified type] Onset: 06-21-2022 Episodic Other injuries and conditions due to external causes (20 sources) Starvation ketoacidosis; Translations: [Starvation, initial encounter] Onset: 04-08-2023 Resolved: 04-09-2023 04-09-2023 Episodic Other nervous system disorders (20 sources) Disorder of brain; Translations: [Encephalopathy, unspecified] Onset: 10-09-2016 Resolved: 10-28-2016 10-28-2016 Chronic Other non-traumatic joint disorders (12 sources) Pain in right hip joint; Translations: [Pain in right hip] Onset: 01-24-2020 Resolved: 05-21-2020 Episodic Other non-traumatic joint disorders (9 sources) Hip pain; Translations: [Pain in right hip] Onset: 01-24-2020 Resolved: 05-21-2020 05-21-2020 Episodic Other nutritional; endocrine; and metabolic disorders (20 sources) Adult failure to thrive syndrome; Translations: [Adult failure to thrive] Onset: 06-15-2016 Resolved: 10-28-2016 10-28-2016 Episodic Other screening for suspected conditions (not mental disorders or infectious disease) (20 sources) Patient encounter status; Translations: [Encounter for other screening for malignant neoplasm of breast] Onset: 03-29-2016 Resolved: 02-17-2017 Episodic Pneumonia (except that caused by tuberculosis or sexually transmitted disease) (20 sources) Pneumonia; Translations: [Pneumonia, unspecified organism] Onset: 12-05-2015 Resolved: 06-16-2017 04-21-2021 Episodic Residual codes; unclassified (20 sources) Non-smoker; Translations: [Other specified health status] Onset: 04-08-2023 04-09-2023 Episodic Substance-related disorders (20 sources) Marijuana user; Translations: [Cannabis use, unspecified, uncomplicated] Onset: 04-08-2023 04-08-2023 Episodic Unclassified (20 sources) Incoordination; Translations: [Lack of coordination due to stroke] Onset: 01-08-2016 Resolved: 03-03-2016 03-03-2016 Unclassified (2 sources) Patient encounter status 07-11-2024 Results Test Name Value Interpretation Reference Range Facility [facility] 10-20-2024 [facility] HNO ID: [id number] Author: MAYAKN RAYMUNDO RT(R) Service: Radiology Author Type: Fire Sprinkler Inspector Type: Allied Health Filed: 10/20/2024 21:53 Note Text: Radiology Service Progress Note PATIENT NAME: Nida Francis DATE OF SERVICE: October 20, 2024 TIME: 9:52 PM PATIENT IDENTITY VERIFICATION COMPLETED USING TWO (2) IDENTIFIERS: Name and Date of confirmed by patient verbally. FALL SCREENING: Has the patient had 2 falls in the last year or 1 fall with injury or currently using an Ambulatory Assistive Device (Walker, Cane, Wheelchair, Crutches, etc.)? Emergency Room Patient: Screened in ED PATIENT GENDER DATA: Assigned female at . status: : No status: NO. PATIENT RELEVANT IMPLANT DATA REVIEWED: Not Applicable PATIENT PRESENTS WITH AN IMPLANTABLE OR ATTACHED THREAD GRINDER: No RADIOLOGY DEPARTMENT: General X-ray: Exam(s) Completed: Upper Extremity X-Ray(s): Shoulder, AP / TRUE AP right PERIPHERAL IV DATA: Not applicable SIGNED BY: RT Sushil(R) October 20, 2024 9:52 PM [facility] HNO ID: [id number] Author: ALEENA JULIEN RT(Carito) Service: ? Author Type: Technologist Type: Allied Health Filed: 10/20/2024 20:17 Note Text: Radiology Service Progress Note PATIENT NAME: Nida Francis DATE OF SERVICE: October 20, 2024 TIME: 8:17 PM PATIENT IDENTITY VERIFICATION COMPLETED USING TWO (2) IDENTIFIERS: Name and Date of confirmed by patient verbally and Name and Date of confirmed by identification band. FALL SCREENING: Has the patient had 2 falls in the last year or 1 fall with injury or currently using an Ambulatory Assistive Device (Walker, Cane, Wheelchair, Crutches, etc.)? Emergency Room Patient: Screened in ED PATIENT GENDER DATA: Assigned female at . status: : No status: NO. PATIENT RELEVANT IMPLANT DATA REVIEWED: Not Applicable PATIENT PRESENTS WITH AN IMPLANTABLE OR ATTACHED THREAD GRINDER: No RADIOLOGY DEPARTMENT: CT; Exam(s) Completed: Spine PERIPHERAL IV DATA: Not applicable SIGNED BY: Aleena Julien RT(R) October 20, 2024 8:17 PM Normal [facility] CT CERVICAL SPINE WO IVCONon 10-20-2024 CT CERVICAL SPINE WO IVCON * * *Final Report* * * DATE OF EXAM: Oct 20 2024 8:25PM [facility] 0505 - CT CERVICAL SPINE WO IVCON / PROCEDURE REASON: Spinal stenosis, cervical * * * * Physician Interpretation * * * * EXAMINATION: CT CERVICAL SPINE WO IVCON CLINICAL HISTORY: Spinal stenosis, cervical TECHNIQUE: Spiral, high resolution axial unenhanced images were obtained from the skull base to the cervicothoracic junction with sagittal and coronal planar reconstructions. MQ: [id number] CT Radiation dose: Integrated CT Dose-Length Product (DLP) for this visit = 416 mGy*cm CT Dose Reduction Employed: Automated exposure control (AEC) COMPARISON: 03/02/2015 RESULT: Counting reference: Craniocervical junction. Anatomic Variants: None. Alignment: Alignment is anatomic. Craniocervical junction: Craniocervical junction is normal. Osseous structures/fracture: No evidence of a lytic or blastic process in the visualized spine. No evidence of acute or chronic fracture. Cervical soft tissues: The paraspinal soft tissues are within normal limits. Degenerative changes: No significant degenerative changes. IMPRESSION: No acute osseous abnormality or high-grade stenosis Agency Recruiter: DANIEL Transcribe Date/Time: Oct 20 2024 9:27P Dictated by : HAYES SPENCER MD This examination was interpreted and the report reviewed and electronically signed by: HAYES SPENCER MD on Oct 20 2024 9:31PM EST [id number] Normal [facility] ED NOTEon 10-20-2024 ED NOTE HNO ID: [id number] Author: ROBERT GAMBOA RN Service: ? Author Type: Registered Nurse Type: ED Notes Filed: 10/20/2024 23:22 Note Text: Pt comprehends and verbalizes understanding of discharge instructions, medications reviewed and verbalizes proper follow up care. Signs and symptoms reviewed on when to return to the emergency department. A+ox3. Pt ambulatory out of ER to home. [facility] ED NOTE HNO ID: [id number] Author: ROBERT GAMBOA RN Service: ? Author Type: Registered Nurse Type: ED Notes Filed: 10/20/2024 23:22 Note Text: R sling applied to arm/ Shoulder. [facility] ED PROV NOTEon 10-20-2024 ED PROV NOTE HNO ID: [id number] Author: BERNARDO BA PA-C Service: ? Author Type: Physician Sack Filler Type: ED Provider Notes Filed: 10/21/2024 23:37 Note Text: ED Provider Note Patient Name: Nida Francis : 1980 SERVICE DATE: 10/20/24 History Patient presents with: Neck Pain: Patient arrives to ED for c/o neck pain, states she was moving boxes yesterday and noticed neck pain after moving. Patient states pain is progressively getting worse and that pain is now radiating to right arm and that she has shooting pain up arm/neck when she tries to raise arm. Patient is a pleasant 43 year-old female presenting to the ED with right sided shoulder pain, neck pain x 1 day. She has a history of bipolar disorder, cannabis use, asthma, 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 DRIVER vasculitis, saccular aneurysm. She is on cellcept. She has had multiple MRI of brain showing stable appearance of aneursyms. Patient reports she is right hand dominant. Believes she pulled a muscle. Reports yesterday on her day off she was moving furniture as she is moving. She reports no injury but started having right anterior shoulder pain and right neck pain. She reports today pain was worse at work. 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 She reports she began having stabbing pain with movement to her right shoulder/neck. Reports shooting pain. Pain is resolved with rest. No paresthesias. She denies any weakness, discoloration, traveling of pain down forearm or into hand. No dizziness, headache, throat pain, bilateral neck pain. No visual changes. She denies chest pain, shortness of breath. She has tried OTC meds with minimal relief. Denies IVDU bowel or bladder incontinence or saddle anesthesias. No other injuries or concerns at this time. 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[facility]) - CVA (cerebral vascular accident) ([facility]) - Gallstones - Generalized anxiety disorder - GERD (gastroesophageal reflux disease) - High cholesterol - Hypertension - Obesity - Panic disorder without agoraphobia - Pneumonia - Psychiatric disorder anxiety, bi-polar - PTSD (post-traumatic stress disorder) - Restless leg syndrome - Saccular aneurysm - Sensorineural hearing loss - Stroke ([facility]) 11/2015 PAST SURGICAL HISTORY Procedure Laterality Date - DENTAL SURGERY HX wisdom teeth - EGD DIAGNOSTIC - LAPAROSCOPY SURG CHOLECYSTECTOMY 08/24/2017 - MIDLINE INSERTION/CONSULT 08/21/2016 - ORTHOPEDICS SURGERY HX right foot - PICC LINE INSERT/CONSULT 12/19/2015 - SIGMOIDOSCOPY FAMILY HISTORY Problem Relation Age of Onset - Hypertension Mother - Depression Mother - Hypertension Father - Depression Father - other (crohns) Maternal Grandmother - Cancer Paternal Grandfather - Breast Cancer Other 50 Social History Tobacco Use - Smoking status: Every Day Current packs/day: 1.00 Average packs/day: 1 pack/day for 13.0 years (13.0 ttl pk-yrs) Types: Cigarettes - Smokeless tobacco: Never Vaping Use - Vaping status: Never Used Substance and Sexual Activity - Alcohol use: No - Drug use: Yes Types: Marijuana Comment: weekly - Sexual activity: Yes Partners: Female ALLERGIES Allergen Reactions - Tomato GI Upset - Bees Swelling Site swelling only per patient Review of Systems Constitutional: Negative for chills and fever. Respiratory: Negative for shortness of breath. Cardiovascular: Negative for chest pain. Musculoskeletal: Positive for arthralgias and myalgias. Negative for gait problem, joint swelling and neck stiffness. Neurological: Negative for weakness, numbness and headaches. Hematological: Does not bruise/bleed easily. Physical Exam Vitals BP Pulse Temp Temp src Resp SpO2 Weight Height 06/28/25 1835 06/28/25 1835 10/20/24 18310/20/24 18310/20/24183410/20/24183410/20/241835 -- 128/73 67 37.1 ?C (98.8 ?F) Oral 18 98 % 99.8 kg (220 lb) Physical Exam Vitals and nursing note reviewed. Constitutional: General: She is not in acute distress. Appearance: She is well-developed and normal weight. She is not ill-appearing or toxic-appearing. HENT: Mouth/Throat: Comments: Speaking in full sentences Eyes: Extraocular Movements: Extraocular movements intact. Pupils: Pupils are equal, round, and reactive to light. Neck: Comments: +TTP over right trapezius region without erythema edema Moves neck in all directions with ease No rash or lesions Cardiovascular: Rate and Rhythm: Normal rate and regular rhythm. Pulses: Radial pulses are 2+ on the right side and 2+ on the left side. Dorsalis pedis pulses are 2+ on the right side and 2+ on the left side. Heart sounds: Normal heart sounds. No murmur heard. Comments: Calves are symmetric in (more content not included)... Normal [facility] ED Triage Noteon 10-20-2024 ED Triage Note HNO ID: [id number] Author: BRYAN RAMÍREZ MD Service: ? Author Type: Physician Type: ED Triage Notes Filed: 10/20/2024 18:37 Note Text: ED INTAKE NOTE Patient Name: Nida Francis Service Date: 10/20/24 BRIEF HPI: This is a 43 year old female who presents to the ED with: neck pain R sided. After lifting boxes. Pain down R arm. BRIEF EXAM: NAD Awake and Alert Non labored breathing No focal neurological deficits INITIAL WORKUP AND DECISION MAKING: Orders Placed This Encounter CT CERVICAL SPINE WO IVCON Provider examination performed via virtual platform with assistance from bedside clinician. SIGNATURE: Bryan Ramírez MD Normal [facility] Urinalysis complete panel (U )on 10-20-2024 Bilirubin Ql (U) Negative Normal Negative [facility] Comment on above: Order Comment: Speci men Type: URINE SPECIMEN Ordering Facility: [facility] Address: [address] [place], [place] [id number] Performed By: #### 2 4356-8 #### [facility] CLIA [id number] [address] [place] [address] [place] Clarity (Unsp spec) Clear Normal Clear [facility] Comment on above: Order Comment: Speci men Type: URINE SPECIMEN Ordering Facility: [facility] Address: [address] [place] [address] Performed By: #### 2 4356-8 #### [facility] CLIA [id number] [address] [place] [address] [place] Color (U) Yellow Normal Yellow [facility] Comment on above: Order Comment: Speci men Type: URINE SPECIMEN Ordering Facility: [facility] Address: [address] [place] [address] Performed By: #### 2 4356-8 #### [facility] CLIA [id number] [address] [place] [address] [place] Epithelial cells LM.HPF (Urine sed) [#/Area] Few Normal [facility] Comment on above: Order Comment: Speci men Type: URINE SPECIMEN Ordering Facility: [facility] Address: [address] [place] [address] Performed By: #### 2 4356-8 #### [facility] CLIA [id number] [address] [place] [address] [place] Glucose Test strip (U) [Mass/Vol] Negative Normal Trace, Negative [facility] Comment on above: Order Comment: Speci men Type: URINE SPECIMEN Ordering Facility: [facility] Address: [address] [place] [address] Performed By: #### 2 4356-8 #### [facility] CLIA [id number] [address] [place] [address] [place] Hemoglobin Ql (U) 1+ Abnormal Negative, Trace [facility] Comment on above: Order Comment: Speci men Type: URINE SPECIMEN Ordering Facility: [facility] Address: [address] [place] [address] Performed By: #### 2 4356-8 #### [facility] CLIA [id number] [address] [place] [address] [place] Ketones Ql (U) Negative Normal Negative, Trace [facility] Comment on above: Order Comment: Speci men Type: URINE SPECIMEN Ordering Facility: [facility] Address: [address] [place] [address] Performed By: #### 2 4356-8 #### [facility] CLIA [id number] [address] [place] [address] [place] Leukocyte esterase Test strip Ql (U) 25 Arielle/uL Normal Negative, 25 Arielle/uL [facility] Comment on above: Order Comment: Speci men Type: URINE SPECIMEN Ordering Facility: [facility] Address: [address] [place] [address] Performed By: #### 2 4356-8 #### [facility] CLIA [id number] [address] [place] [address] [place] Nitrite Ql (U) Negative Normal Negative [facility] Comment on above: Order Comment: Speci men Type: URINE SPECIMEN Ordering Facility: [facility] Address: [address] [place] [address] Performed By: #### 2 4356-8 #### [facility] CLIA [id number] [address] [place] [address] [place] pH (U) 6.0 [pH] Normal 5.0-8.0 [facility] Comment on above: Order Comment: Speci men Type: URINE SPECIMEN Ordering Facility: [facility] Address: [address] [place] [address] Performed By: #### 2 4356-8 #### [facility] CLIA [id number] [address] [place] [address] [place] Protein (U) [Mass/Vol] 1+ Abnormal Trace , Negative [facility] Comment on above: Order Comment: Speci men Type: URINE SPECIMEN Ordering Facility: [facility] Address: [address] [place] [address] Performed By: #### 2 4356-8 #### [facility] CLIA [id number] [address] [place] [address] [place] RBC LM.HPF (Urine sed) [#/Area] 11-25 /HPF Abnormal 0-3 /HPF [facility] Comment on above: Order Comment: Speci men Type: URINE SPECIMEN Ordering Facility: [facility] Address: [address] [place] [address] Performed By: #### 2 4356-8 #### [facility] CLIA [id number] [address] [place] [address] [place] Specific gravity (U) [Rel density] >1.050 High 1.005-1.030 [facility] Comment on above: Order Comment: Speci men Type: URINE SPECIMEN Ordering Facility: [facility] Address: [address] [place] [address] Performed By: #### 2 4356-8 #### [facility] CLIA [id number] [address] [place] [address] [place] Urobilinogen Ql (U) 1+ Abnormal Normal [facility] Comment on above: Order Comment: Speci men Type: URINE SPECIMEN Ordering Facility: [facility] Address: [address] [place] [address] Performed By: #### 2 4356-8 #### [facility] CLIA [id number] [address] [place] [address] [place] WBC LM.HPF (Urine sed) [#/Area] 0-5 /HPF Normal 0-5 /HPF [facility] Comment on above: Order Comment: Speci men Type: URINE SPECIMEN Ordering Facility: [facility] Address: [address] [place] [address] Performed By: #### 2 4356-8 #### [facility] CLIA [id number] [address] [place] [address] [place] XR SHLDR >/=3V AP/KATHLEEN AP/OTH R RTon 10-20-2024 XR SHLDR >/=3V AP/KATHLEEN AP/OTHR RT * * *Final Report* * * DATE OF EXAM: Oct 20 2024 9:54PM FVX [id number] - XR SHLDR >/=3V AP/KATHLEEN AP/OTHR RT / PROCEDURE REASON: Arthritis * * * * Physician Interpretation * * * * EXAM: XR SHLDR >/=3V AP/KATHLEEN AP/OTHR RT CLINICAL INFORMATION ( PROVIDED BY ORDERING CLINICIAN) : RIGHT shoulder pain. Trauma. Arthritis. COMPARISON: 04/07/2023 FINDINGS: See impression. IMPRESSION: No acute displaced fracture identified. Articulation maintained. Mild degenerative change at the acromioclavicular joint. Bone islands RIGHT humeral head. Agency Recruiter: [employer] Transcribe Date/Time: Oct 20 2024 10:46P Dictated by : JANNA REYES MD This examination was interpreted and the report reviewed and electronically signed by: JANNA REYES MD on Oct 20 2024 10:50PM EST [id number] Normal [facility] Abdomen/Pelvis W IV Cont ONL Yon 07-03-2024 Abdomen/Pelvis W IV Cont ONLY [facility] Imaging Services [address] [place] [address] [id number] Abdomen/Pelvis W IV Cont ONLY MR#: [id number] Acct: [id number] Name: NIDA FRANCIS Rep #: [id number] : 1980 F 43 From: Manuel Alejo MD PCP: FELECIA ELY Status: REG ER Study: Abdomen/Pelvis W IV Cont ONLY Date of Exam: Exam# [id number] Ordering Dr: Moses Vaz DO PROCEDURE: ABDOMEN/PELVIS W IV CONT ONLY REASON FOR EXAM: ABD PAIN TECHNIQUE: Abdomen and pelvis CT with intravenous contrast. Coronal and sagittal reformatted images IV CONTRAST: 94 cc Isovue 370 COMPARISON: None. FINDINGS: Lung bases: Clear Liver: Unremarkable. Gallbladder: Status post cholecystectomy. Spleen: Unremarkable. Pancreas: Unremarkable. Adrenals: Unremarkable. Kidneys: Unremarkable. Bladder: Collapsed. Reproductive Organs: A couple of follicular cyst right ovary measuring up to 1.9 cm. No adjacent free fluid seen. Left ovary and uterus appear within limits Bowel: No bowel dilation, free air or free fluid.. Appendix: Normal caliber without secondary signs. Lymph nodes: No suspicious lymph node enlargement. Vasculature: Major vascular structures are unremarkable. Peritoneum / Retroperitoneum: No ascites. No free air. Bones: Right acetabular subchondral cyst axial 135. CT/Abdomen/Pelvis W IV Cont ONLY IMPRESSION: Study appears within limits as above. Status post cholecystectomy. One or more dose reduction techniques were used (e.g., Automated exposure control, adjustment of the mA and/or kV according to patient size, use of iterative reconstruction technique). Reading Location: [facility] CC: FELECIA ELY; Moses Vaz DO Agency Recruiter: Signed Normal [facility] Absolute neutrophil countOrd ered By: ED PROVIDER on 07-03-2024 Neutrophils (Bld) [#/Vol] 11.8 10*3/uL High 2.0-7.7 [facility] Anion gap in Serum or Plasma Ordered By: Moses Vaz on 07-03-2024 Anion gap [Moles/Vol] 18 mmol/L High 5-15 [facility] BUN/creatinine ratioOrdered By: Moses Vaz on 07-03-2024 Urea nitrogen/Creatinine [Mass ratio] 21.2 mg/mg High 10-20 [facility] Basophil percentageOrdered B y: ED PROVIDER on 07-03-2024 Basophils/100 WBC (Bld) 0.2 % 0-1 [facility] Beta HCG ( test) Ql Ordered By: Moses Vaz on 07-03-2024 Serum Test, Qualitative Negative [facility] Bilirubin Test strip Ql (U)O rdered By: Moses Vaz on 07-03-2024 Bilirubin Ql (U) Negative Negative [facility] Bilirubin, totalOrdered By: Moses Vaz on 07-03-2024 Bilirubin [Mass/Vol] 0.32 mg/dL 0.00-1.30 [facility] CBC W/Diff, Automatedon 06-23 Absolute Lymph 1.20 X10 3/uL Normal 0.83-4.51 [facility] Comment on above: Performed By: #### L 700.2570, L500.4050, L100.0100, L501.2450 #### [facility] [address] [place], [address] Absolute Neut 11.8 X10 3/uL High 2.0-7.7 [facility] Comment on above: Performed By: #### L 700.6800, L500.4050, L100.0100, L501.2450 #### [facility] [address] [place], [address] Basophils/100 WBC (Bld) 0.2 % Normal 0-1 [facility] Comment on above: Performed By: #### L 700.6800, L500.4050, L100.0100, L501.2450 #### [facility] [address] [place], [address] Eosinophils/100 WBC (Bld) 0.0 % Normal 0-5 [facility] Comment on above: Performed By: #### L 700.6800, L500.4050, L100.0100, L501.2450 #### [facility] [address] [place], [address] Erythrocyte distribution width (RBC) [Ratio] 13.5 % Normal 11.6-14.6 [facility] Comment on above: Performed By: #### L 700.6800, L500.4050, L100.0100, L501.2450 #### [facility] [address] [place], [address] Hematocrit (Bld) [Volume fraction] 44.1 % Normal 37-47 [facility] Comment on above: Performed By: #### L 700.6800, L500.4050, L100.0100, L501.2450 #### [facility] [address] [place], [address] Hemoglobin (Bld) [Mass/Vol] 15.7 g/dL High 12.0-15.0 [facility] Comment on above: Performed By: #### L 700.6800, L500.4050, L100.0100, L501.2450 #### [facility] [address] [place], [address] IG% 0.400 Normal 0.0-0.9 [facility] Comment on above: Result Comment: IG% - Immature Granulocytes (promyelocytes, myelocytes and metamyelocytes) > 1% indicates that a LEFT SHIFT is Present. Performed By: #### L 700.6800, L500.4050, L100.0100, L501.2450 #### [facility] [address] [place], [address] Lymphocytes/100 WBC (Bld) 9.1 % Low 19-41 [facility] Comment on above: Performed By: #### L 700.6800, L500.4050, L100.0100, L501.2450 #### [facility] [address] [place], [address] MCH (RBC) [Entitic mass] 31.2 pg Normal 27.0-32.0 [facility] Comment on above: Performed By: #### L 700.6800, L500.4050, L100.0100, L501.2450 #### [facility] [address] [place], [address] MCHC (RBC) [Mass/Vol] 35.6 g/dL Normal 32-36 [facility] Comment on above: Performed By: #### L 700.6800, L500.4050, L100.0100, L501.2450 #### [facility] [address] [place], [address] MCV (RBC) [Entitic vol] 87.7 fL Normal 81-99 [facility] Comment on above: Performed By: #### L 700.6800, L500.4050, L100.0100, L501.2450 #### [facility] [address] [place], [address] Monocytes/100 WBC (Bld) 1.7 % Normal 0-10 [facility] Comment on above: Performed By: #### L 700.6800, L500.4050, L100.0100, L501.2450 #### [facility] [address] [place], [address] Neutrophils/100 WBC (Bld) 88.6 % High 47-70 [facility] Comment on above: Performed By: #### L 700.6800, L500.4050, L100.0100, L501.2450 #### [facility] [address] [place], [address] Nucleated RBC (Bld) [#/Vol] 0 10*3/uL Normal 0-5 [facility] Comment on above: Performed By: #### L 700.6800, L500.4050, L100.0100, L501.2450 #### [facility] [address] [place], [address] Platelet mean volume (Bld) [Entitic vol] 12.0 fL Normal 6.2-12.0 [facility] Comment on above: Performed By: #### L 700.6800, L500.4050, L100.0100, L501.2450 #### [facility] [address] [place], [address] Platelets (Bld) [#/Vol] 281 10*3/uL Normal 150-450 [facility] Comment on above: Performed By: #### L 700.6800, L500.4050, L100.0100, L501.2450 #### [facility] [address] [place], [address] RBC (Bld) [#/Vol] 5.03 10*6/uL Normal 4.2-5.4 [facility] Comment on above: Performed By: #### L 700.6800, L500.4050, L100.0100, L501.2450 #### [facility] [address] [place], [address] RDW SD 43.2 fl Normal 35.1-43.9 [facility] Comment on above: Performed By: #### L 700.6800, L500.4050, L100.0100, L501.2450 #### [facility] [address] [place], [address] WBC (Bld) [#/Vol] 13.3 10*3/uL High 4.4-11.0 [facility] Comment on above: Performed By: #### L 700.6800, L500.4050, L100.0100, L501.2450 #### [facility] [address] [place], [address] Carbon dioxide, total [Moles /volume] in Central venous bloodOrdered By: Moses Vaz on 07-03-2024 CO2 [Moles/Vol] 18.9 mmol/L Low 21.0-32.0 [facility] Chloride assayOrdered By: Marycruz Vaz on 07-03-2024 Chloride [Moles/Vol] 107 mmol/L 98-108 [facility] Comprehensive Metabolic Prof ilon 07-03-2024 Albumin [Mass/Vol] 4.8 g/dL Normal 3.5-5.0 [facility] Comment on above: Performed By: #### L 700.6800, L500.4050, L100.0100, L501.2450 #### [facility] [address] [place], [address] Albumin/Globulin [Mass ratio] 1.4 {ratio} Normal 0.9-2.4 [facility] Comment on above: Performed By: #### L 700.6800, L500.4050, L100.0100, L501.2450 #### [facility] [address] [place], [address] ALK PHOS 72 U/L Normal 35-104 [facility] Comment on above: Performed By: #### L 700.6800, L500.4050, L100.0100, L501.2450 #### [facility] [address] [place], [address] ALT [Catalytic activity/Vol] 27 U/L Normal <=34 [facility] Comment on above: Performed By: #### L 700.6800, L500.4050, L100.0100, L501.2450 #### [facility] [address] [place], [address] AST [Catalytic activity/Vol] 23 U/L Normal <=31 [facility] Comment on above: Performed By: #### L 700.6800, L500.4050, L100.0100, L501.2450 #### [facility] [address] [place], [address] Bilirubin [Mass/Vol] 0.32 mg/dL Normal 0.00-1.30 [facility] Comment on above: Performed By: #### L 700.6800, L500.4050, L100.0100, L501.2450 #### [facility] [address] [place], [address] BUN/CRE 21.2 RATIO High 10-20 [facility] Comment on above: Performed By: #### L 700.6800, L500.4050, L100.0100, L501.2450 #### [facility] [address] [place], [address] Calcium [Mass/Vol] 10.0 mg/dL Normal 7.6-11.0 [facility] Comment on above: Performed By: #### L 700.6800, L500.4050, L100.0100, L501.2450 #### [facility] [address] [place], [address] Chloride [Moles/Vol] 107 mmol/L Normal 98-108 [facility] Comment on above: Performed By: #### L 700.6800, L500.4050, L100.0100, L501.2450 #### [facility] [address] [place], [address] CO2 [Moles/Vol] 18.9 mmol/L Low 21.0-32.0 [facility] Comment on above: Performed By: #### L 700.6800, L500.4050, L100.0100, L501.2450 #### [facility] [address] [place], [address] Creatinine [Mass/Vol] 1.06 mg/dL Normal 0.70-1.20 [facility] Comment on above: Performed By: #### L 700.6800, L500.4050, L100.0100, L501.2450 #### [facility] [address] [place], [address] ECRCL 74.15 ml/min Normal 50-250 [facility] Comment on above: Performed By: #### L 700.6800, L500.4050, L100.0100, L501.2450 #### [facility] [address] [place], [address] GAP 18 High 5-15 [facility] Comment on above: Performed By: #### L 700.6800, L500.4050, L100.0100, L501.2450 #### [facility] [address] [place], [address] GFR/1.73 sq M.predicted among non-blacks MDRD (S/P/Bld) [Vol rate/Area] 67 mL/min/{1.73_m2} Normal >60 [facility] Comment on above: Result Comment: mL/m in/1.73m2 CKD-EPI Creatinine Equation (2020) Performed By: #### L 700.6800, L500.4050, L100.0100, L501.2450 #### [facility] [address] [place], [address] Globulin (S) [Mass/Vol] 3.3 g/dL Normal 2.2-4.2 [facility] Comment on above: Performed By: #### L 700.6800, L500.4050, L100.0100, L501.2450 #### [facility] [address] [place], [address] Glucose [Mass/Vol] 205 mg/dL High 70-99 [facility] Comment on above: Performed By: #### L 700.6800, L500.4050, L100.0100, L501.2450 #### [facility] [address] [place], [address] Potassium [Moles/Vol] 4.2 mmol/L Normal 3.3-5.1 [facility] Comment on above: Result Comment: Hemo lysis present, Results??could be affected. ?? Performed By: #### L 700.6800, L500.4050, L100.0100, L501.2450 #### [facility] [address] [place], [address] Sodium [Moles/Vol] 144 mmol/L Normal 133-145 [facility] Comment on above: Performed By: #### L 700.6800, L500.4050, L100.0100, L501.2450 #### [facility] [address] [place], [address] T PROT 8.1 g/dL Normal 5.9-8.4 [facility] Comment on above: Performed By: #### L 700.6800, L500.4050, L100.0100, L501.2450 #### [facility] [address] [place], [address] Urea nitrogen [Mass/Vol] 23 mg/dL High 4-19 [facility] Comment on above: Performed By: #### L 700.6800, L500.4050, L100.0100, L501.2450 #### [facility] [address] [place], [address] Emergency Department Summary on 07-03-2024 Emergency Department Summary [facility] Medical Records Department [address] [place] [address] Emergency Department Summary 07/03/24 MR#: [id number] Acct: [id number] Name: NIDA FRANCIS Rep #: [id number] : 1980 43 From: Moses Vaz DO PCP: FELECIA ELY Status:DEP ER Location: ED HPI History of Present Illness Chief Complaint: Nausea/Vomiting/Diarr hea Informant: patient and family Narrative Narrative: Patient is a 43-year-old female with past medical history of hypertension as well as anxiety. She states that she typically controls her anxiety with Ativan which she takes only every once in a while. She states roughly a week ago she ran out of her meds and missed her appointment to get it refilled. She states that she went to bed normally on Tuesday night but then awoke Tuesday morning around 6 AM as she normally would but noticed generalized abdominal discomfort and then developed bouts of vomiting and diarrhea. She denies any known sick contacts recent antibiotic use or travel outside the country. She states that she tried controlling her symptoms with [id number] medication and time but throughout the day the symptoms have not improved and therefore she comes in for evaluation Of note the patient's family member states that when she runs out of her anxiety medication these types of symptoms such as abdominal discomfort vomiting diarrhea and urinary frequency are common [facility] Medical History (Updated 07/03/24 @ 04:[address] Moses Vaz DO) Cyclic vomiting syndrome Home Medications ???Medication ???Instructions ???Recorded ???Last Taken ???Type albuterol sulfate 90 mcg/actuation 1 puff inhalation Q4H PRN PRN Unknown History aerosol inhaler dyspnea amlodipine 5 mg tablet 5 mg PO DAILY blood pressure 07/03 Unknown History atorvastatin 80 mg tablet 80 mg PO QHS cholesterol 07/03/24 Unknown History gabapentin 100 mg capsule 200 mg PO TID 07/03/24 Unknown His tory lamotrigine 150 mg tablet 150 mg PO BID 07/03/24 Unknown His tory lorazepam 0.5 mg tablet 0.5 mg PO DAILY PRN anxiety Unknown History lorazepam 0.5 mg tablet (Ativan) 0.5 mg PO TID PRN anxiety 5 days 0 07/03/24 Unknown Rx #15 tabs metoprolol succinate 50 mg 50 mg PO DAILY blood pressure 06/23 05/19 Unknown History tablet,extended release 24 hr mycophenolate mofetil 500 mg tablet 1,000 mg PO BID 07/03/24 Unknow n History ondansetron 4 mg disintegrating 4 mg PO TID PRN nausea and 5 Unknown Rx tablet vomiting #21 tabs pantoprazole 40 mg tablet,delayed 40 mg PO BID 07/03/24 Unknown His tory release Allergy/AdvReac Type Severity Reaction Status Date / Time bee venom protein (honey bee) Allergy Severe Anaphylaxis Verified 07/03/24 00:20 tomato AdvReac Intermediate GASTROINTESTINAL Verified 07/03/24 00:20 UPSET Family History no significant family his Surgical History (Updated 07/03/24 @ 00:40 by Leonardo Calderon) History of cholecystectomy Social History Smoking Status: Current every day smoker tobacco type: cigarettes ROS ROS ED Constitutional Constitutional ED: Denies chills or fever(s) Eyes Eyes: Denies blurry vision or change in vision ENT ENT ED: Denies sore throat Cardiovascular Cardiovascular: Denies chest pain Respiratory/Chest Respiratory/Chest: Denies cough or dyspnea Gastrointestinal Gastrointestinal: Reports abdominal pain, diarrhea, nausea and vomiting Genitourinary Genitourinary ED: Reports urinary frequency; Denies dysuria or hematuria Musculoskeletal Musculoskeletal: Denies myalgias Integumentary Denies rash Neurologic Neurologic: Denies headache(s) Psychiatric Psychiatric: Reports anxiety; Denies suicidal ideation or suicidal thoughts Hematologic/Lymphatic Hematologic/Lymphatic : Denies easy bleeding or easy bruising EXAM Physical Exam Const Vital Signs: 07/03/24 00:06 07/03/24 02:05 07/03/24 04:00 Temperature 96.8 F L Temperature Source Temporal Pulse Rate 88 81 72 Respiratory Rate 16 16 16 Blood Pressure 165/95 H 126/90 H 128/76 H Blood Pressure Mean 118 102 93 Pulse Ox 98 99 98 Oxygen Delivery Method Room Air Room Air Room Air 07/03/24 04:19 Temperature 97.7 F L Temperature Source Pulse Rate 77 Respiratory Rate 16 Blood Pressure 128/76 H Blood Pressure Mean 93 Pulse Ox 98 Oxygen Delivery Method Positive well nourished, well developed and obese General Appearance ED: well developed; Negative for pallor Nutritional Appearance: obese HEENT Reports dry mucous membranes HEENT Narrative: Mucous membranes are dry and tacky No secondary findings in the posterior pharynx to suggest infection Mouth ED: Yes dry mucous membranes Mouth: dry mucous membranes Eyes PERRL an (more content not included)... Normal [facility] Eosinophil percentageOrdered By: ED PROVIDER on 07-03-2024 Eosinophils/100 WBC (Bld) 0.0 % 0-5 [facility] Epithelial cells.squamous LM Ql (Urine sed)Ordered By: Moses Vaz on 07-03-2024 Epithelial cells.squamous LM.HPF (Urine sed) [#/Area] 0 /[HPF] 5-10 [facility] Erythrocyte distribution wid th ratioOrdered By: ED PROVIDER on 07-03-2024 Erythrocyte distribution width (RBC) [Ratio] 13.5 % 11.6-14.6 [facility] Erythrocyte distribution wid th standard deviationOrdered By: ED PROVIDER on 07-03-2024 Erythrocyte distribution width (RBC) [Entitic vol] 43.2 fL 35.1-43.9 [facility] Estimation of creatinine adalid aranceOrdered By: Moses Vaz on 07-03-2024 Estimated Creatinine Clearance Calc 74.15 ml/min 50-250 [facility] GFR/1.73 sq M.predicted stacie g non-blacks MDRD (S/P/Bld) [Vol rate/Area]Ordered By: Moses Vaz on 07-03-2024 Estimated GFR (MDRD) Non-Af Amer 67 >60 [facility] Comment on above: mL/min/1.73m2 CKD-EP I Creatinine Equation (2020) Glucose Ql (U)Ordered By: Marycruz Vaz on 07-03-2024 Urine Glucose (UA) Normal mg/dl Normal [facility] Hematocrit Auto (Bld) [Volum e fraction]Ordered By: ED PROVIDER on 07-03-2024 Hematocrit (Bld) [Volume fraction] 44.1 % 37-47 [facility] Hemoglobin measurementOrdere d By: ED PROVIDER on 07-03-2024 Hemoglobin (Bld) [Mass/Vol] 15.7 g/dL High 12.0-15.0 [facility] Immature granulocytes/100 WB C Auto (Bld)Ordered By: ED PROVIDER on 07-03-2024 Immature granulocytes/100 WBC (Bld) 0.400 % 0.0-0.9 [facility] Comment on above: IG% - Immature Granu locytes (promyelocytes, myelocytes and metamyelocytes) > 1% indicates that a LEFT SHIFT is Present. Ketones Test strip Ql (U)Ord ered By: Moses Vza on 07-03-2024 Ketones Ql (U) Negative Negative [facility] - Chemistry and C hemistry - challengeOrdered By: Moses Vaz on 07-03-2024 AST [Catalytic activity/Vol] 23 U/L <32 [facility] Lipaseon 07-03-2024 Lipase [Catalytic activity/Vol] 45 U/L Normal 13-75 [facility] Comment on above: Result Comment: Plea se note: LIPASE revised reference range effective 22. New Lipase methodology. Expected to produce lower values than the previous assay method. NEW Reference Range: 13 - 75 U/L Performed By: #### L 700.6800, L500.4050, L100.0100, L501.2450 #### [facility] [address] [place] [address], [address] Lipase measurementOrdered By : Moses Vaz on 07-03-2024 Lipase [Catalytic activity/Vol] 45 U/L 13-75 [facility] Comment on above: Please note:LIPASE r evised reference range effective 22. New Lipase methodology. Expected to produce lower values than the previous assay method. NEW Reference Range: 13 - 75 U/L Lymphocytes Auto (Unsp spec) [#/Vol]Ordered By: ED PROVIDER on 07-03-2024 Lymphocytes (Bld) [#/Vol] 1.20 10*3/uL 0.83-4.51 [facility] Lymphocytes/100 WBC Auto (Un sp spec)Ordered By: ED PROVIDER on 07-03-2024 Lymphocytes/100 WBC (Bld) 9.1 % Low 19-41 [facility] MCV (mean corpuscular volume ) determinationOrdered By: ED PROVIDER on 07-03-2024 MCV (RBC) [Entitic vol] 87.7 fL 81-99 [facility] Mean corpuscular hemoglobin (MCH) determinationOrdered By: ED PROVIDER on 07-03-2024 MCH (RBC) [Entitic mass] 31.2 pg 27.0-32.0 [facility] Mean corpuscular hemoglobin concentration (MCHC) determinationOrdered By: ED PROVIDER on 07-03-2024 MCHC (RBC) [Mass/Vol] 35.6 g/dL 32-36 [facility] Mean platelet volume determi nationOrdered By: ED PROVIDER on 07-03-2024 Platelet mean volume (Bld) [Entitic vol] 12.0 fL 6.2-12.0 [facility] Microscopic analysis of urin e for red blood cells (RBC)Ordered By: Moses Vaz on 07-03-2024 Urine RBC 0 SEEN /hpf 0-5 [facility] Monocyte percentageOrdered B y: ED PROVIDER on 07-03-2024 Monocytes/100 WBC (Bld) 1.7 % 0-10 [facility] Mucus LM Ql (Urine sed)Order ed By: Moses Vaz on 07-03-2024 Mucus Ql (Urine sed) 0 SEEN /hpf [facility] Neutrophil percentageOrdered By: ED PROVIDER on 07-03-2024 Neutrophils/100 WBC (Bld) 88.6 % High 47-70 [facility] Nitrite Test strip Ql (U)Ord ered By: Moses Vaz on 07-03-2024 Nitrite Ql (U) Negative Negative [facility] Nucleated red blood cell per centageOrdered By: ED PROVIDER on 07-03-2024 Nucleated RBC/100 WBC (Bld) [Ratio] 0 % 0-5 [facility] Platelet countOrdered By: ED PROVIDER on 07-03-2024 Platelets (Bld) [#/Vol] 281 10*3/uL 150-450 [facility] Potassium (Unsp spec) [Mass/ Vol]Ordered By: Msoes Vaz on 07-03-2024 Potassium [Moles/Vol] 4.2 mmol/L 3.3-5.1 [facility] Comment on above: Hemolysis present, R esults could be affected. ,Serum,hCG Quali.on 07-03-2024 HCG, SERUM QUAL Negative Normal [facility] Comment on above: Performed By: #### L 700.6800, L500.4050, L100.0100, L501.2450 #### [facility] [address] [place], [address] Protein Test strip Ql (U)Ord ered By: Moses Vaz on 07-03-2024 Protein Ql (U) 30 mg/dl High Negative [facility] RBC Auto (Bld) [#/Vol]Ordere d By: ED PROVIDER on 07-03-2024 RBC (Bld) [#/Vol] 5.03 10*6/uL 4.2-5.4 [facility] Serum creatinine measurement (mass/volume)Ordered By: Moses Vaz on 07-03-2024 Creatinine [Mass/Vol] 1.06 mg/dL 0.70-1.20 [facility] Serum globulin measurementOr dered By: Moses Vaz on 07-03-2024 Globulin (S) [Mass/Vol] 3.3 g/dL 2.2-4.2 [facility] Serum glucose measurement (m ass/volume)Ordered By: Moses Vaz on 07-03-2024 Glucose [Mass/Vol] 205 mg/dL High 70-99 [facility] Serum or plasma alanine hong otransferase (ALT) measurementOrdered By: Moses Vaz on 07-03-2024 ALT [Catalytic activity/Vol] 27 U/L <35 [facility] Serum or plasma albumin lamberto urement (mass/volume)Ordered By: Moses Vaz on 07-03-2024 Albumin [Mass/Vol] 4.8 g/dL 3.5-5.0 [facility] Serum or plasma albumin/glob ulin mass ratioOrdered By: Moses Vaz on 07-03-2024 Albumin/Globulin [Mass ratio] 1.4 {ratio} 0.9-2.4 [facility] Serum or plasma alkaline dheeraj sphatase measurementOrdered By: Moses Vaz on 07-03-2024 ALP [Catalytic activity/Vol] 72 U/L 35-104 [facility] Serum or plasma calcium lamberto urement (mass/volume)Ordered By: Moses Vaz on 07-03-2024 Calcium [Mass/Vol] 10.0 mg/dL 7.6-11.0 [facility] Serum or plasma urea nitroge n measurement (mass/volume)Ordered By: Moses Vaz on 07-03-2024 Urea nitrogen [Mass/Vol] 23 mg/dL High 4-19 [facility] Sodium levelOrdered By: Boo Vaz on 07-03-2024 Sodium [Moles/Vol] 144 mmol/L 133-145 [facility] Total proteinOrdered By: Torsten Vaz on 07-03-2024 Protein [Mass/Vol] 8.1 g/dL 5.9-8.4 [facility] Urinalysis, Completeon 07-03 RBC 0 SEEN Normal 0-5 [facility] Comment on above: Order Comment: COLLE CTOR TO SPECIFY Performed By: #### L 400.0001 #### [facility] [address] [place] [address]. [place], [address] Urine blood detectionOrdered By: Moses Vaz on 07-03-2024 Urine Occult Blood 25 /ul High Negative [facility] Urine clarityOrdered By: Torsten Vaz on 07-03-2024 Clarity (U) Clear Clear [facility] Urine color determinationOrd ered By: Moses Vaz on 07-03-2024 Color (U) Yellow Yellow [facility] Urine leukocyte esterase det ection by dipstickOrdered By: Moses Vaz on 07-03-2024 Leukocyte esterase Test strip Ql (U) Negative Negative [facility] Urine pHOrdered By: Moses gan on 07-03-2024 pH (U) 7.0 [pH] 5.0 - 8.0 [facility] Urine sediment bacteria coun t by microscopy (number/high power field)Ordered By: Moses Vaz on 07-03-2024 Bacteria LM.HPF (Urine sed) [#/Area] 0 /[HPF] None Seen [facility] Urine specific gravity measu rementOrdered By: Moses Vaz on 07-03-2024 Specific gravity (U) [Rel density] 1.010 1.002-1.030 [facility] Urobilinogen Ql (U)Ordered B y: Moses Vaz on 07-03-2024 Urine Urobilinogen Normal mg/dl Normal [facility] White blood cell (WBC) count Ordered By: ED PROVIDER on 07-03-2024 WBC (Bld) [#/Vol] 13.3 10*3/uL High 4.4-11.0 [facility] White blood cell countOrdere d By: Moses Vaz on 07-03-2024 Urine WBC 0 SEEN /hpf 0-5 [facility] ALLIED HEALTHon 02-17-2024 ALLIED HEALTH HNO ID: [id number] Author: RANJAN VICK RT(R) Service: ? Author Type: Fire Sprinkler Inspector Type: Allied Health Filed: 02/17/2024 18:41 Note Text: Radiology Service Progress Note PATIENT NAME: Nida Francis DATE OF SERVICE: February 17, 2024 TIME: 6:41 PM PATIENT IDENTITY VERIFICATION COMPLETED USING TWO (2) IDENTIFIERS: Name and Date of confirmed by patient verbally and Name and Date of confirmed by identification band. FALL SCREENING: Has the patient had 2 falls in the last year or 1 fall with injury or currently using an Ambulatory Assistive Device (Walker, Cane, Wheelchair, Crutches, etc.)? Inpatient: Screened on floor PATIENT GENDER DATA: Female. status: : No status: NO. PATIENT RELEVANT IMPLANT DATA REVIEWED: Not Applicable PATIENT PRESENTS WITH AN IMPLANTABLE OR ATTACHED THREAD GRINDER: No RADIOLOGY DEPARTMENT: General X-ray: Exam(s) Completed: Abdomen X-Ray: Abdomen PERIPHERAL IV DATA: Not applicable SIGNED BY: RT Keiry(Carito) February 17, 2024 6:41 PM [facility] ALLIED HEALTH HNO ID: [id number] Author: RANJAN VICK RT(R) Service: ? Author Type: Fire Sprinkler Inspector Type: Allied Health Filed: 02/17/2024 16:30 Note Text: RADIOLOGY SERVICE PROGRESS NOTE DATE OF SERVICE: February 17, 2024 TIME OF SERVICE: 4:25pm EVENT: EXAM/PROCEDURE NOT COMPLETED - Patient was not in room for abdomen xray, nurse will call when she is back. ADDITIONAL EVENT DETAILS: N/A SIGNATURE: RT Keiry(R) PATIENT NAME: Nida Francis DATE: February 17, 2024 TIME: 4:29 PM PAGER/CONTACT #: Normal [facility] Basic metabolic 2000 panelon 02-17-2024 Anion gap [Moles/Vol] 15 mmol/L Normal 8-15 [facility] Comment on above: Order Comment: Speci men Type: BLOOD SPECIMENOrdering Facility: [facility] Address: [address] [place] [address] Performed By: #### 2 4321-2 ####[facility]ORYCL[facility] [id number] [place] [id number] [place] Calcium [Mass/Vol] 9.4 mg/dL Normal 8.5-10.2 [facility] Comment on above: Order Comment: Speci men Type: BLOOD SPECIMENOrdering Facility: [facility] Address: [address] [place] [address] Performed By: #### 2 4321-2 ####[facility]ORYCLIA [id number] [place] [id number] [place] Chloride [Moles/Vol] 98 mmol/L Normal 98-107 [facility] Comment on above: Order Comment: Speci men Type: BLOOD SPECIMENOrdering Facility: [facility] Address: [address] [place] [address] Performed By: #### 2 4321-2 ####[facility]ORYCLIA [id number] [place] [id number] [place] CO2 [Moles/Vol] 25 mmol/L Normal 22-30 [facility] Comment on above: Order Comment: Speci men Type: BLOOD SPECIMENOrdering Facility: [facility] Address: [address] [place] [address] Performed By: #### 2 4321-2 ####[facility]ORYCL[facility] [id number] [place] [id number] [place] Creatinine [Mass/Vol] 0.80 mg/dL Normal 0.58-0.96 [facility] Comment on above: Order Comment: Davina cabrales Type: BLOOD SPECIMENOrdering Facility: [facility] Address: [address] [place] [address] Performed By: #### 2 4321-2 ####[facility] LABORATORYCLIA [id number] [place] [id number] [place] Creatinine and Glomerular filtration rate.predicted panel (S/P/Bld) 94 mL/min/1.73m??? Normal >=60 [facility] Comment on above: Order Comment: Davina cabrales Type: BLOOD SPECIMENOrdering Facility: [facility] Address: [address] [place] [address] Result Comment: Karyn mated Glomerular Filtration Rate (eGFR) is calculated using the 2020 CKD-EPI creatinine equation. This equation utilizes serum creatinine, sex, and age as parameters. The creatinine assay has traceable calibration to isotope dilution-mass spectrometry. Refer to KDIGO guidelines for clinical interpretation. In patients with unstable renal function, e.g. those with acute kidney injury, the eGFR may not accurately reflect actual GFR. Performed By: #### 2 4321-2 ####[facility] LABORATORYCLIA [id number] [place] [id number] [place] Glucose [Mass/Vol] 90 mg/dL Normal 74-99 [facility] Comment on above: Order Comment: Davina cabrales Type: BLOOD SPECIMENOrdering Facility: [facility] Address: [address] [place] [address] Result Comment: The [place] Diabetes Association (ADA) provides guidance for cutoff values for fasting glucose and random glucose. The ADA defines fasting as no caloric intake for at least 8 hours. Fasting plasma glucose results between 100 to 125 mg/dL indicate increased risk for diabetes (prediabetes). Fasting plasma glucose results greater than or equal to 126 mg/dL meet the criteria for diagnosis of diabetes. In the absence of unequivocal hyperglycemia, results should be confirmed by repeat testing. In a patient with classic symptoms of hyperglycemia or hyperglycemic crisis, random plasma glucose results greater than or equal to 200 mg/dL meet the criteria for diagnosis of diabetes. Reference: Standards of Medical Care in Diabetes 2016, [place] Diabetes Association. Diabetes Care. 2016.39(Suppl 1). Performed By: #### 2 4321-2 ####[facility]ORYCLIA [id number] [place] [id number] [place] Potassium [Moles/Vol] 3.4 mmol/L Low 3.7-5.1 [facility] Comment on above: Order Comment: Speci men Type: BLOOD SPECIMENOrdering Facility: [facility] Address: [address] [place] [address] Performed By: #### 2 4321-2 ####[facility]ATORYCLIA [id number] [place] [id number] [place] Sodium [Moles/Vol] 138 mmol/L Normal 136-144 [facility] Comment on above: Order Comment: Speci men Type: BLOOD SPECIMENOrdering Facility: [facility] Address: [address] [place] [address] Performed By: #### 2 4321-2 ####[facility]ORYCLIA [id number] [place] [id number] [place] Urea nitrogen [Mass/Vol] 25 mg/dL High - [facility] Comment on above: Order Comment: Nunui men Type: BLOOD SPECIMENOrdering Facility: [facility] Address: [address] [place] [address] Performed By: #### 2 4321-2 ####[facility]ORYCLIA [id number] [place] [id number] [facility] [place] CBC panel Auto (Bld)on 02-16 Erythrocyte distribution width (RBC) [Ratio] 13.3 % Normal 11.5-15.0 [facility] Comment on above: Order Comment: Speci men Type: BLOOD SPECIMENOrdering Facility: [facility] Address: [address] [place] [address] Performed By: #### 5 8410-2 ####[facility]ATORYCLIA [id number] [place] [id number] [facility] Hematocrit (Bld) [Volume fraction] 40.4 % Normal 36.0-46.0 [facility] Comment on above: Order Comment: Speci men Type: BLOOD SPECIMENOrdering Facility: [facility] Address: [address] [place] [address] Performed By: #### 5 8410-2 ####[facility]ORATORYCLIA [id number] [place] [address] [place] Hemoglobin (Bld) [Mass/Vol] 14.2 g/dL Normal 11.5-15.5 [facility] Comment on above: Order Comment: Speci men Type: BLOOD SPECIMENOrdering Facility: [facility] Address: [address] [place] [address] Performed By: #### 5 8410-2 ####[facility]ORATORYCLIA [id number] [place] [address] [place] MCH (RBC) [Entitic mass] 30.7 pg Normal 26.0-34.0 [facility] Comment on above: Order Comment: Speci men Type: BLOOD SPECIMENOrdering Facility: [facility] Address: [address] [place] [address] Performed By: #### 5 8410-2 ####[facility] LABORATORYCLIA [id number] [place] [address] [place] MCHC (RBC) [Mass/Vol] 35.1 g/dL Normal 30.5-36.0 [facility] Comment on above: Order Comment: Speci men Type: BLOOD SPECIMENOrdering Facility: [facility] Address: [address] [place] [address] Performed By: #### 5 8410-2 ####[facility] LABORATORYCLIA [id number] [place] [id number] [place] MCV (RBC) [Entitic vol] 87.3 fL Normal 80.0-100.0 [facility] Comment on above: Order Comment: Speci men Type: BLOOD SPECIMENOrdering Facility: [facility] Address: [address] [place] [address] Performed By: #### 5 8410-2 ####[facility]ORATORYCLIA [id number] [place] [id number] [place] Nucleated RBC (Bld) [#/Vol] 10*3/uL Normal <0.01 [facility] Comment on above: Order Comment: Speci men Type: BLOOD SPECIMENOrdering Facility: [facility] Address: [address] [place] [address] Performed By: #### 5 8410-2 ####[facility] LABORATORYCLIA [id number] [place] [id number] [place] Platelet mean volume (Bld) [Entitic vol] 12.7 fL Normal 9.0-12.7 [facility] Comment on above: Order Comment: Speci men Type: BLOOD SPECIMENOrdering Facility: [facility] Address: [address] [place] [address] Performed By: #### 5 8410-2 ####[facility] LABORATORYCLIA [id number] [place] [id number] [place] Platelets (Bld) [#/Vol] 191 10*3/uL Normal 150-400 [facility] Comment on above: Order Comment: Speci men Type: BLOOD SPECIMENOrdering Facility: [facility] Address: [address] [place] [address] Performed By: #### 5 8410-2 ####[facility]ATORYCLIA [id number] [place] [address] [place] RBC (Bld) [#/Vol] 4.63 10*6/uL Normal 3.90-5.20 [facility] Comment on above: Order Comment: Speci men Type: BLOOD SPECIMENOrdering Facility: [facility] Address: [address] [place] [address] Performed By: #### 5 8410-2 ####[facility]ATORYCLIA [id number] [place] [id number] [place] WBC (Bld) [#/Vol] 10.21 10*3/uL Normal 3.70-11.00 [facility] Comment on above: Order Comment: Speci men Type: BLOOD SPECIMENOrdering Facility: [facility] Address: [address] [place] [address] [place] [address] Performed By: #### 5 8410-2 ####[facility] LABORATORYIA [id number] [address] CNDSon 02-17-2024 CN HNO ID: [id number] Author: FELECIA ELY MD Service: ? Author Type: Physician Type: Discharge Summary Filed: 02/18/2024 22:46 Note Text: Internal Medicine discharge summery PATIENT NAME: Nida Francis Discharge DATE: 02/17/2024 SUBJECTIVE: This is a patient who came in the hospital with abdominal pain, nausea, and vomiting. Stated she is unable to keep anything down. ASSESSMENT AND PLAN: 1. Epigastric abdominal pain. 2. Nausea and vomiting. 3. Acute renal failure 4. Hypokalemia, 5. History of asthma. No new complain Clear by consultants to D/C meds reviewed /condition is stable emphasize on F/u 1 week with PCP as well as consultants Phone number and cards provided by the consultants and RN Question answered Total time over 30 ms Last EKG reviewed Last CXR reviewed [facility] consultants notes reviewed Labs reviewed Hemoglobin A1C Date Value Ref Range Status 10/14/2020 5.5 4.3 - 5.6 % Final Comment: [place] Diabetes Association guidelines indicate that patients with HgbA1c in the range 5.7-6.4% are at increased risk for development of diabetes, and intervention by lifestyle modification may be beneficial. HgbA1c greater or equal to 6.5% is considered diagnostic of diabetes. 02/16/24201902/16/24 2343 02/17/24 0356 02/17/24 1123 BP: 139/70 129/71 161/86 175/96 Pulse: 78 83 72 71 Resp: 18 18 19 18 Temp: 36.8 ?C (98.2 ?F) 36.7 ?C (98.1 ?F) 36.5 ?C (97.7 ?F) 36.4 ?C (97.5 ?F) TempSrc: Oral Oral Oral Oral SpO2: 97% 96% 97% 96% Weight: Height: GENERAL:no distress, cooperative LUNGS: Lungs clear to auscultation. No wheezing,ronchi or rales./CARDIAC: S1 , S2; ABDOMEN: Abdomen soft, non-tender NEURO: same /no new rash ENT unremarkable Plan D/W consultants/PT/coco melgar family Medication List CONTINUE taking these medications acetaminophen 325 mg tablet Commonly known as: TYLENOL Take 2 tablets by mouth every 6 hours. albuterol HFA 90 mcg/actuation inhaler Commonly known as: PROVENTIL HFA, VENTOLIN HFA INHALE TWO (2) PUFFS EVERY 4 HOURS NEEDED FOR WHEEZING OR SHORTNESS OF BREATH amLODIPine 5 mg tablet Commonly known as: NORVASC Take 1 tablet by mouth once daily. atorvastatin 80 mg tablet Commonly known as: LIPITOR TAKE 1 TABLET BY MOUTH ONCE DAILY ergocalciferol (vitamin D2) 50,000 unit capsule Commonly known as: VITAMIN D2 TAKE 1 CAPSULE BY MOUTH ONCE WEEKLY *EMERGENCY REFILL* gabapentin 100 mg capsule Commonly known as: NEURONTIN Take 2 capsules by mouth three times a day for 30 days. lamoTRIgine 150 mg tablet Commonly known as: LaMICtal take 1 tablet by mouth twice daily metoprolol succinate ER 50 mg 24 hr tablet Commonly known as: TOPROL XL Take 1 tablet by mouth once daily. mycophenolate Mofetil 500 mg tablet Commonly known as: CELLCEPT Take 2 tablets by mouth two times a day. ondansetron orally disintegrating 4 mg disintegrating tablet Commonly known as: ZOFRAN ODT Take 1 tablet by mouth every 6 hours as needed for nausea/vomiting. pantoprazole DR 40 mg tablet Commonly known as: PROTONIX take one (1) tablet by mouth twice daily rOPINIRole 0.25 mg tablet Commonly known as: REQUIP take 1 tablet by mouth daily at bedtime Felecia Ely MD [facility] CONSULTon 02-17-2024 CONSULT HNO ID: [id number] Author: ROCIO REEVES APRN.CNP Service: Gastroenterology Author Type: Nurse Practitioner Type: Consults Filed: 02/17/2024 14:27 Note Text: Attestation signed by Ayala Carlin MD at 02/17/2024 4:06 PM ATTENDING NOTE: I supervised and discussed plan of care and management with the PA/ROOM ATTENDANT. I reviewed the PA/ROOM ATTENDANT's note and agree with the documented findings and plan of care. Ayala Carlin MD [facility] GI INITIAL CONSULT NOTE SERVICE DATE: 02/17/2024 SERVICE TIME: 2:10 PM REASON FOR CONSULT: nausea, vomiting REQUESTING PHYSICIAN: Dr. Ely PRIMARY CARE PHYSICIAN: Felecia Ely MD Subjective Ms. Francis is a 43 year old female who presents for nausea, vomiting. Pt with h/o HTN, 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 DRIVER vasculitis, bipolar disorder, PTSD, anxiety, cannabis use, cholecystectomy presented to ED with c/o nausea and vomiting. She reports symptoms have been present for the past 7 years intermittently but this particular episode has been ongoing for 3 days. She has not been able to tolerate any PO intake. She reports generalized abdominal pain on my exam. She admits she has not moved her bowels for the past week and typically when this happens she has nausea and vomiting. She is not on any laxative regimen. She has been evaluated as outpatient for this same complaint - last had EGD and colonoscopy in November (see below). Gastric emptying study was recommended and ordered but not yet done. US on admission is unremarkable. No urine tox was obtained on admission - she does have a history of cannabinoid hyperemesis as well. Prior endoscopy: EGD - 12/02/23 - normal Colonoscopy - 12/02/23 - internal hemorrhoids, otherwise normal PAST MEDICAL HISTORY Diagnosis Date Asthma Bipolar 1 disorder (HCC) Borderline personality disorder (HCC) Cannabis dependence (HCC) Cerebral arteritis 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 DRIVER vasculitis (HCC) CVA (cerebral vascular accident) (HCC) Gallstones Generalized anxiety disorder GERD (gastroesophageal reflux disease) High cholesterol Hypertension Obesity Panic disorder without agoraphobia Pneumonia Psychiatric disorder anxiety, bi-polar PTSD (post-traumatic stress disorder) Restless leg syndrome Saccular aneurysm Sensorineural hearing loss Stroke (HCC) 11/2015 PAST SURGICAL HISTORY Procedure Laterality Date DENTAL SURGERY HX wisdom teeth EGD DIAGNOSTIC LAPAROSCOPY SURG CHOLECYSTECTOMY 08/24/2017 MIDLINE INSERTION/CONSULT 08/21/2016 ORTHOPEDICS SURGERY HX right foot PICC LINE INSERT/CONSULT 12/19/2015 SIGMOIDOSCOPY FAMILY HISTORY Problem Relation Age of Onset Hypertension Mother Depression Mother Hypertension Father Depression Father other (crohns) Maternal Grandmother Cancer Paternal Grandfather Breast Cancer Other 50 Social History Tobacco Use Smoking status: Every Day Current packs/day: 1.00 Average packs/day: 1 pack/day for 13.0 years (13.0 ttl pk-yrs) Types: Cigarettes Smokeless tobacco: Never Vaping Use Vaping status: Never Used Substance Use Topics Alcohol use: No Drug use: Yes Types: Marijuana Comment: weekly pantoprazole DR (PROTONIX) 40 mg tablet, take one (1) tablet by mouth twice daily, Disp: 60 tablet, Rfl: 2, 02/15/2024 at 0900 rOPINIRole (REQUIP) 0.25 mg tablet, take 1 tablet by mouth daily at bedtime, Disp: 30 tablet, Rfl: , 02/15/2024 at 0900 amLODIPine (NORVASC) 5 mg tablet, Take 1 tablet by mouth once daily., Disp: 30 tablet, Rfl: 2, 02/15/2024 at 0900 atorvastatin (LIPITOR) 80 mg tablet, TAKE 1 TABLET BY MOUTH ONCE DAILY, Disp: 30 tablet, Rfl: 2, 02/15/2024 at 2100 lamoTRIgine (LAMICTAL) 150 mg tablet, take 1 tablet by mouth twice daily, Disp: 60 tablet, Rfl: 0, 02/15/2024 at 2100 ondansetron orally disintegrating (ZOFRAN ODT) 4 mg disintegrating tablet, Take 1 tablet by mouth every 6 hours as needed for nausea/vomiting., Disp: 8 tablet, Rfl: 0, 02/15/2024 at 2100 ergocalciferol 50,000 unit capsule (VITAMIN D2, DRISDOL), TAKE 1 CAPSULE BY MOUTH ONCE WEEKLY *EMERGENCY REFILL*, Disp: 4 capsule, Rfl: , 02/15/2024 at 0900 acetaminophen (TYLENOL) 325 mg tablet, Take 2 tablets by mouth every 6 hours., Disp: , Rfl: 0, 02/15/2024 at 2100 mycophenolate Mofetil (CELLCEPT) 500 mg tablet, Take 2 tablets by mouth two times a day., Disp: 120 tablet, Rfl: 0 gabapentin (NEURONTIN) 100 mg capsule, Take 2 capsules by mouth three times a day for 30 days., Disp: 180 capsule, Rfl: 0 metoprolol succinate ER (TOPROL XL) 50 mg 24 hr tablet, Take 1 tablet by mouth once daily., Disp: 30 tablet, Rfl: 2 albuterol HFA (PROVENTIL HFA, VENTOLIN HFA) 90 mcg/actuation inhaler, INHALE TWO (2) PUFFS EVERY 4 HOURS NEEDED FOR WHEEZING OR SHORTNESS OF BREATH, Disp: 8.5 g, Rfl: 2 Current Facility-Administered (more content not included)... [facility] NURSING PROGon 02-17-2024 NURSING PROG HNO ID: [id number] Author: HANG MORALES RN Service: Nursing Author Type: Registered Nurse Type: Nursing Progress Note Filed: 02/17/2024 20:43 Note Text: Other: d/c order in, awaiting KUB results. KUB resulted, no acute findings. Discharged papers given to patient.questions/con cerns addressed. Walk out of her room in stable condition, refused wheelchair. All belongings sent with patient. Normal [facility] XR ABDOMEN 1V SUPINEon 02-16 XR ABDOMEN 1V SUPINE * * *Final Report* * * DATE OF EXAM: Feb 17 2024 6:21PM FVX [id number] - XR ABDOMEN 1V SUPINE / PROCEDURE REASON: Nausea/Vomiting * * * * Physician Interpretation * * * * XR ABDOMEN 1V SUPINE CLINICAL HISTORY: abdominal pain Nausea/Vomiting COMPARISON: 04/17/2019 FINDINGS: Scattered intraluminal gas and stool within nondistended colon No small bowel dilatation, fluid levels or extraluminal gas. Osseous structures are unremarkable. Surgical clips in the right upper quadrant of the abdomen. IMPRESSION: Normal intestinal gas pattern. No acute findings. Agency Recruiter: DANIEL Transcribe Date/Time: Feb 17 2024 8:19P Dictated by : ALEJANDRA CURTIS MD This examination was interpreted and the report reviewed and electronically signed by: ALEJANDRA CURTIS MD on Feb 17 2024 8:19PM EST [id number] N [facility] ALLIED HEALTHon 02-16-2024 ALLIED HEALTH HNO ID: [id number] Author: SHERI HAAS RDMS Service: ? Author Type: Commercial Sales Manager Type: Allied Health Filed: 02/16/2024 10:35 Note Text: Radiology Service Progress Note PATIENT NAME: Nida Francis DATE OF SERVICE: February 16, 2024 TIME: 10:35 AM PATIENT IDENTITY VERIFICATION COMPLETED USING TWO (2) IDENTIFIERS: Name and Date of confirmed by patient verbally. FALL SCREENING: Has the patient had 2 falls in the last year or 1 fall with injury or currently using an Ambulatory Assistive Device (Walker, Cane, Wheelchair, Crutches, etc.)? Inpatient: Screened on floor PATIENT GENDER DATA: Female. status: : No status: N/A PATIENT RELEVANT IMPLANT DATA REVIEWED: Not Applicable PATIENT PRESENTS WITH AN IMPLANTABLE OR ATTACHED THREAD GRINDER: No RADIOLOGY DEPARTMENT: Ultrasound PERIPHERAL IV DATA: Not applicable SIGNED BY: Sheri Haas RDMS February 16, 2024 10:35 AM [facility] CBC W Auto Differential pane l (Bld)on 02-16-2024 Basophils (Bld) [#/Vol] 10*3/uL Normal <0.11 [facility] Comment on above: Order Comment: Speci men Type: BLOOD SPECIMENOrdering Facility: [facility] Address: [address] [place] [address] Performed By: #### 5 7021-8 ####[facility] LABORATORYCLIA [id number] [place] [address] [place] Basophils/100 WBC (Bld) 0.1 % Normal [facility] Comment on above: Order Comment: Speci men Type: BLOOD SPECIMENOrdering Facility: [facility] Address: [address] [place] [address] Performed By: #### 5 7021-8 ####[facility] LABORATORYCLIA [id number] [place] [address] [place] Differential cell count method Nom (Bld) Auto [facility] Comment on above: Order Comment: Speci men Type: BLOOD SPECIMENOrdering Facility: [facility] Address: [address] [place] [address] Performed By: #### 5 7021-8 ####[facility] LABORATORYCLIA [id number] [place] [address] [place] Eosinophils (Bld) [#/Vol] 10*3/uL Normal <0.46 [facility] Comment on above: Order Comment: Speci men Type: BLOOD SPECIMENOrdering Facility: [facility] Address: [address] [place] [address] Performed By: #### 5 7021-8 ####[facility] LABORATORYCLIA [id number] [address] [place] Eosinophils/100 WBC (Bld) 0.0 % Normal [facility] Comment on above: Order Comment: Speci men Type: BLOOD SPECIMENOrdering Facility: [facility] Address: [address] [place] [address] Performed By: #### 5 7021-8 ####[facility] LABORATORYCLIA [id number] [address] [place] Erythrocyte distribution width (RBC) [Ratio] 13.2 % Normal 11.5-15.0 [facility] Comment on above: Order Comment: Speci men Type: BLOOD SPECIMENOrdering Facility: [facility] Address: [address] [place] [address] Performed By: #### 5 7021-8 ####[facility] LABORATORYCLIA [id number] [place] [address] [place] Hematocrit (Bld) [Volume fraction] 43.8 % Normal 36.0-46.0 [facility] Comment on above: Order Comment: Speci men Type: BLOOD SPECIMENOrdering Facility: [facility] Address: [address] [place] [address] Performed By: #### 5 7021-8 ####[facility] LABORATORYCLIA [id number] [place] [address] [place] Hemoglobin (Bld) [Mass/Vol] 15.7 g/dL High 11.5-15.5 [facility] Comment on above: Order Comment: Speci men Type: BLOOD SPECIMENOrdering Facility: [facility] Address: [address] [place] [address] Performed By: #### 5 7021-8 ####[facility] LABORATORYCLIA [id number] [place] [id number] [facility] [place] Immature granulocytes (Bld) [#/Vol] 0.04 10*3/uL Normal <0.10 [facility] Comment on above: Order Comment: Speci men Type: BLOOD SPECIMENOrdering Facility: [facility] Address: [address] [place] [address] Performed By: #### 5 7021-8 ####[facility] LABORATORYCLIA [id number] [address] Immature granulocytes/100 WBC (Bld) 0.3 % Normal [facility] Comment on above: Order Comment: Speci men Type: BLOOD SPECIMENOrdering Facility: [facility] Address: [address] [place] [address] Performed By: #### 5 7021-8 ####[facility] LABORATORYCLIA [id number] [address] [place] Lymphocytes (Bld) [#/Vol] 1.83 10*3/uL Normal 1.00-4.00 [facility] Comment on above: Order Comment: Speci men Type: BLOOD SPECIMENOrdering Facility: [facility] Address: [address] [place] [address] Performed By: #### 5 7021-8 ####[facility] LABORATORYCLIA [id number] [place] [address] [place] Lymphocytes/100 WBC (Bld) 13.6 % Normal [facility] Comment on above: Order Comment: Speci men Type: BLOOD SPECIMENOrdering Facility: [facility] Address: [address] [place] [address] Performed By: #### 5 7021-8 ####[facility] LABORATORYCLIA [id number] [place] [id number] [place] MCH (RBC) [Entitic mass] 30.5 pg Normal 26.0-34.0 [facility] Comment on above: Order Comment: Speci men Type: BLOOD SPECIMENOrdering Facility: [facility] Address: [address] [place] [address] Performed By: #### 5 7021-8 ####[facility] LABORATORYCLIA [id number] [place] [address] [place] MCHC (RBC) [Mass/Vol] 35.8 g/dL Normal 30.5-36.0 [facility] Comment on above: Order Comment: Speci men Type: BLOOD SPECIMENOrdering Facility: [facility] Address: [address] [place] [address] Performed By: #### 5 7021-8 ####[facility] LABORATORYCLIA [id number] [place] [address] [place] MCV (RBC) [Entitic vol] 85.0 fL Normal 80.0-100.0 [facility] Comment on above: Order Comment: Speci men Type: BLOOD SPECIMENOrdering Facility: [facility] Address: [address] [place] [address] Performed By: #### 5 7021-8 ####[facility] LABORATORYCLIA [id number] [place] [address] [place] Monocytes (Bld) [#/Vol] 1.14 10*3/uL High <0.87 [facility] Comment on above: Order Comment: Speci men Type: BLOOD SPECIMENOrdering Facility: [facility] Address: [address] [place] [address] Performed By: #### 5 7021-8 ####[facility] LABORATORYCLIA [id number] [place] [id number] [place] Monocytes/100 WBC (Bld) 8.5 % Normal [facility] Comment on above: Order Comment: Speci men Type: BLOOD SPECIMENOrdering Facility: [facility] Address: [address] [place] [address] Performed By: #### 5 7021-8 ####[facility] LABORATORYCLIA [id number] [place] [address] [place] Neutrophils (Bld) [#/Vol] 10.41 10*3/uL High 1.45-7.50 [facility] Comment on above: Order Comment: Speci men Type: BLOOD SPECIMENOrdering Facility: [facility] Address: [address] [place] [address] Performed By: #### 5 7021-8 ####[facility] LABORATORYCLIA [id number] [place] [address] [place] Neutrophils/100 WBC (Bld) 77.5 % Normal [facility] Comment on above: Order Comment: Speci men Type: BLOOD SPECIMENOrdering Facility: [facility] Address: [address] [place] [address] Performed By: #### 5 7021-8 ####[facility] LABORATORYCLIA [id number] [place] [address] [place] Nucleated RBC (Bld) [#/Vol] 10*3/uL Normal <0.01 [facility] Comment on above: Order Comment: Speci men Type: BLOOD SPECIMENOrdering Facility: [facility] Address: [address] [place] [address] Performed By: #### 5 7021-8 ####[facility] LABORATORYCLIA [id number] [place] [address] [place] Nucleated RBC/100 WBC (Bld) [Ratio] 0.0 /100 WBC Normal [facility] Comment on above: Order Comment: Speci men Type: BLOOD SPECIMENOrdering Facility: [facility] Address: [address] [place] [address] Performed By: #### 5 7021-8 ####[facility] LABORATORYCLIA [id number] [place] [id number] [place] Platelet mean volume (Bld) [Entitic vol] 12.4 fL Normal 9.0-12.7 [facility] Comment on above: Order Comment: Speci men Type: BLOOD SPECIMENOrdering Facility: [facility] Address: [address] [place] [address] Performed By: #### 5 7021-8 ####[facility] LABORATORYCLIA [id number] [place] [address] [place] Platelets (Bld) [#/Vol] 229 10*3/uL Normal 150-400 [facility] Comment on above: Order Comment: Speci men Type: BLOOD SPECIMENOrdering Facility: [facility] Address: [address] [place] [address] Performed By: #### 5 7021-8 ####[facility] LABORATORYCLIA [id number] [place] [address] [place] RBC (Bld) [#/Vol] 5.15 10*6/uL Normal 3.90-5.20 [facility] Comment on above: Order Comment: Speci men Type: BLOOD SPECIMENOrdering Facility: [facility] Address: [address] [place] [address] Performed By: #### 5 7021-8 ####[facility] LABORATORYCLIA [id number] [place] [address] [place] WBC (Bld) [#/Vol] 13.44 10*3/uL High 3.70-11.00 [facility] Comment on above: Order Comment: Speci men Type: BLOOD SPECIMENOrdering Facility: [facility] Address: [address] [place] [address] Performed By: #### 5 7021-8 ####[facility] LABORATORYCLIA [id number] [place] [id number] [place] Comprehensive metabolic 2000 panelon 02-16-2024 Albumin [Mass/Vol] 5.3 g/dL High 3.9-4.9 [facility] Comment on above: Order Comment: Speci men Type: BLOOD SPECIMEN [facility] Address: [address] [place] [address] Performed By: #### 2 4323-8, 3040-3, 47156-7 #### [facility] CLIA [id number] [address] [place] [address] [place] ALP [Catalytic activity/Vol] 82 U/L Normal 34-123 [facility] Comment on above: Order Comment: Speci men Type: BLOOD SPECIMEN [facility] Address: [address] [place] [address] Performed By: #### 2 4323-8, 0-3, #### [facility] CLIA [id number] [address] [place] [address] [place] ALT [Catalytic activity/Vol] 32 U/L Normal 7-38 [facility] Comment on above: Order Comment: Speci men Type: BLOOD SPECIMEN [facility] Address: [address] [place] [address] Performed By: #### 2 4323-8, 3, #### [facility] CLIA [id number] [address] [place] [address] [place] Anion gap [Moles/Vol] 21 mmol/L High 8-15 [facility] Comment on above: Order Comment: Speci men Type: BLOOD SPECIMEN [facility] Address: [address] [place] [address] Performed By: #### 2 4323-8, 3, #### [facility] CLIA [id number] [address] [place] [address] [place] AST [Catalytic activity/Vol] 24 U/L Normal 13-35 [facility] Comment on above: Order Comment: Speci men Type: BLOOD SPECIMEN [facility] Address: [address] [place] [address] Performed By: #### 2 4323-8, 03, #### [facility] CLIA [id number] [address] [place], [place] [address] [place] Bilirubin [Mass/Vol] 0.6 mg/dL Normal 0.2-1.3 [facility] Comment on above: Order Comment: Speci men Type: BLOOD SPECIMEN [facility] Address: [address] [place] [address] Performed By: #### 2 4323-8, 0-3, #### [facility] CLIA [id number] [place] [address] [place] Calcium [Mass/Vol] 10.4 mg/dL High 8.5-10.2 [facility] Comment on above: Order Comment: Speci men Type: BLOOD SPECIMEN [facility] Address: [address] [place] [address] Performed By: #### 2 4323-8, 3040-3, #### [facility] CLIA [id number] [address] [place] [address] [place] Chloride [Moles/Vol] 91 mmol/L Low 98-107 [facility] Comment on above: Order Comment: Speci men Type: BLOOD SPECIMEN [facility] Address: [address] [place] [address] Performed By: #### 2 4323-8, 0-3, #### [facility] CLIA [id number] [address] [place] [address] [place] CO2 [Moles/Vol] 24 mmol/L Normal 22-30 [facility] Comment on above: Order Comment: Speci men Type: BLOOD SPECIMEN [facility] Address: [address] [place] [address] Performed By: #### 2 4323-8, 03, #### [facility] CLIA [id number] [address] [place] [address] [place] Creatinine [Mass/Vol] 1.47 mg/dL High 0.58-0.96 [facility] Comment on above: Order Comment: Speci men Type: BLOOD SPECIMEN [facility] Address: [address] [place] [address] Performed By: #### 2 4323-8, 0-3, #### [facility] CLIA [id number] [place] [address] [place] Creatinine and Glomerular filtration rate.predicted panel (S/P/Bld) 45 mL/min/1.73m??? Low >=60 [facility] Comment on above: Order Comment: Davina cabrales Type: BLOOD SPECIMEN [facility] Address: [address] [place] [address] Result Comment: Karyn mated Glomerular Filtration Rate (eGFR) is calculated using the 2020 CKD-EPI creatinine equation. This equation utilizes serum creatinine, sex, and age as parameters. The creatinine assay has traceable calibration to isotope dilution-mass spectrometry. Refer to KDIGO guidelines for clinical interpretation. In patients with unstable renal function, e.g. those with acute kidney injury, the eGFR may not accurately reflect actual GFR. Performed By: #### 2 4323-8, 0-3, #### [facility] CLIA [id number] [address] [place] [address] [place] Glucose [Mass/Vol] 118 mg/dL High 74-99 [facility] Comment on above: Order Comment: Davina cabrales Type: BLOOD SPECIMEN [facility] Address: [address] [place] [address] Result Comment: The [place] Diabetes Association (ADA) provides guidance for cutoff values for fasting glucose and random glucose. The ADA defines fasting as no caloric intake for at least 8 hours. Fasting plasma glucose results between 100 to 125 mg/dL indicate increased risk for diabetes (prediabetes). Fasting plasma glucose results greater than or equal to 126 mg/dL meet the criteria for diagnosis of diabetes. In the absence of unequivocal hyperglycemia, results should be confirmed by repeat testing. In a patient with classic symptoms of hyperglycemia or hyperglycemic crisis, random plasma glucose results greater than or equal to 200 mg/dL meet the criteria for diagnosis of diabetes. Reference: Standards of Medical Care in Diabetes 2016, [place] Diabetes Association. Diabetes Care. 2016.39(Suppl 1). Performed By: #### 2 4323-8, 3040-3, #### [facility] CLIA [id number] [address] [place] [address] [place] Potassium [Moles/Vol] 3.4 mmol/L Low 3.7-5.1 [facility] Comment on above: Order Comment: Davina [facility] Type: BLOOD SPECIMEN [facility] Address: [address] [place] [address] Performed By: #### 2 4323-8, 3040-3, #### [facility] CLIA [id number] [place], [place] [address] [place] Protein [Mass/Vol] 9.0 g/dL High 6.3-8.0 [facility] Comment on above: Order Comment: Speci men Type: BLOOD SPECIMEN [facility] Address: [address] [place] [address] Performed By: #### 2 4323-8, 3040-3, #### [facility] CLIA [id number] [address] [place], [place] [address] [place] Sodium [Moles/Vol] 136 mmol/L Normal 136-144 [facility] Comment on above: Order Comment: Speci men Type: BLOOD SPECIMEN [facility] Address: [address] [place] [address] Performed By: #### 2 4323-8, 3040-3, #### [facility] CLIA [id number] [address] [place] [address] [place] Urea nitrogen [Mass/Vol] 41 mg/dL High 7-21 [facility] Comment on above: Order Comment: Speci men Type: BLOOD SPECIMEN [facility] Address: [address] [place] [address] Performed By: #### 2 4323-8, 3040-3, #### [facility] CLIA [id number] [address] [place], [place] [address] [place] ED NOTEon 02-16-2024 ED NOTE HNO ID: [id number] Author: ALDO PERES RN Service: ? Author Type: Registered Nurse Type: ED Notes Filed: 02/16/2024 11:42 Note Text: Bed: 21-ED Expected date: Expected time: Means of arrival: Comments: Triage Normal [facility] ED PROV NOTEon 02-16-2024 ED PROV NOTE HNO ID: [id number] Author: SHARMIN LOPEZ MD Service: Emergency Medicine Author Type: Physician Type: ED Provider Notes Filed: 02/16/2024 16:13 Note Text: ED Provider Note Patient Name: Nida Francis : 1980 SERVICE DATE: 02/16/24 History Patient presents with: Abdominal Pain: Per pt abd pain x2 days. Pt states N/V. Pt denies any other syms. Nausea AND Vomiting 43 year old female with past medical history of hypertension, 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 DRIVER vasculitis, bipolar disorder, PTSD, and anxiety presents to the ED with concern of nausea and vomiting. Patient states that for the past 2 days she has been unable to tolerate any p.o. intake due to nausea and vomiting. 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 Denies shortness of breath, denies urinary symptoms. Last menstrual cycle in September, states that she is usually irregular. Past abdominal surgeries include cholecystectomy. Patient states that she has had similar symptoms in the past over the past few years, has seen GI to no avail, states that she last saw GI and had scopes done about 1 month ago. She admits to smoking about 1 pack/day, denies alcohol use, does endorse occasional marijuana use, though she states that she had been abstinent for about 1.5 years and these episodes persisted. Notes that she only has relief from the episodes with hot showers. Reviewed procedures from 12/02/2023: Upper endoscopy Impression: - Z-line regular, 35 cm from the incisors. - Normal esophagus. Biopsied. - Normal stomach. - Normal examined duodenum. Colonoscopy Impression: - Internal hemorrhoids that prolapse with straining, but spontaneously regress to the resting position (Grade II) and perianal skin tags found on perianal exam. - The entire examined colon is normal. - No specimens collected. 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 used: No PAST MEDICAL HISTORY Diagnosis Date Asthma Bipolar 1 disorder (HCC) Borderline personality disorder (HCC) Cannabis dependence (HCC) Cerebral arteritis 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 DRIVER vasculitis (HCC) CVA (cerebral vascular accident) (HCC) Gallstones Generalized anxiety disorder GERD (gastroesophageal reflux disease) High cholesterol Hypertension Obesity Panic disorder without agoraphobia Pneumonia Psychiatric disorder anxiety, bi-polar PTSD (post-traumatic stress disorder) Restless leg syndrome Saccular aneurysm Sensorineural hearing loss Stroke (HCC) 11/2015 PAST SURGICAL HISTORY Procedure Laterality Date DENTAL SURGERY HX wisdom teeth EGD DIAGNOSTIC LAPAROSCOPY SURG CHOLECYSTECTOMY 08/24/2017 MIDLINE INSERTION/CONSULT 08/21/2016 ORTHOPEDICS SURGERY HX right foot PICC LINE INSERT/CONSULT 12/19/2015 SIGMOIDOSCOPY FAMILY HISTORY Problem Relation Age of Onset Hypertension Mother Depression Mother Hypertension Father Depression Father other (crohns) Maternal Grandmother Cancer Paternal Grandfather Breast Cancer Other 50 Social History Tobacco Use Smoking status: Every Day Current packs/day: 1.00 Average packs/day: 1 pack/day for 13.0 years (13.0 ttl pk-yrs) Types: Cigarettes Smokeless tobacco: Never Vaping Use Vaping status: Never Used Substance and Sexual Activity Alcohol use: No Drug use: Yes Types: Marijuana Comment: weekly Sexual activity: Yes Partners: Female ALLERGIES Allergen Reactions Tomato GI Upset Bees Swelling Site swelling only per patient Review of Systems Constitutional: Negative for appetite change, chills, diaphoresis and fever. HENT: Negative for ear pain, rhinorrhea and sore throat. Eyes: Negative for pain. Respiratory: Negative for cough and shortness of breath. Cardiovascular: Negative for chest pain and leg swelling. Gastrointestinal: Positive for abdominal pain, nausea and vomiting. Negative for blood in stool, constipation and diarrhea. Genitourinary: Negative for dysuria, flank pain, frequency and hematuria. Musculoskeletal: Negative for back pain, myalgias and neck pain. Skin: Negative for color change, pallor and rash. Neurological: Negative for syncope and headaches. Psychiatric/Behaviora l: Negative for confusion. The patient is not nervous/anxious. Physical Exam Vitals BP Pulse Temp Temp src Resp SpO2 Weight Height 02/16/24 0918 02/16/24 0918 02/16/24 0918 -- 02/16/24 0918 02/16/24 0918 02/16/24 0918 02/16/24 0918 140/104 (!) 114 37.1 ?C (98.8 ?F) 14 95 % 86.2 kg (190 lb) 1.651 m (5' 5) Physical Exam Vitals and nursing note reviewed. Constitutional: General: She is not in acute distress. Appearance: She is well-developed. She is not diaphoretic. Comments: Lying in right lateral decubitus HENT: Head: Normocephalic and atraumatic. Eyes: Extraocular Movements: Extraocular movements intact. Pupils: Pupils are equal, round, and reactive to light. Cardiovascular: Rate and Rhythm: N (more content not included)... Normal [facility] ED Triage Noteon 02-16-2024 ED Triage Note HNO ID: [id number] Author: KEM ALCALA MD Service: Emergency Medicine Author Type: Physician Type: ED Triage Notes Filed: 02/16/2024 09:23 Note Text: ED INTAKE NOTE Patient Name: Nida Francis Service Date: 02/16/24 BRIEF HPI: This is a 43 year old female who presents to the ED with: 2 days of abdominal pressure a/w nausea and vomiting. Similar episodes in the past. No cause has been found although the patient reports marijuana use. Tender in the epigastric region only. BRIEF EXAM: NAD Awake and Alert Non labored breathing INITIAL WORKUP AND DECISION MAKING: Orders Placed This Encounter US RUQ - R/O GB or Bilary disease COMPREHENSIVE METABOLIC PANEL (BMP+LFT) LIPASE BLOOD CBC + AUTO DIFF Urinalysis w Microscopic, reflex Culture HCG QUALITATIVE URINE Further triage/room assignment per nursing Limited role in this case performing a screening of the patient in triage Further work up, treatment, follow up on testing ordered from triage, further testing, care, disposition, and final MDM per downstream emergency provider team Please see downstream ED providers's notation for full HnP and MDM Provider examination performed via virtual platform with assistance from bedside clinician. SIGNATURE: Kem Alcala MD Normal [facility] EKGon 02-16-2024 Electrocardiogram Ventricular Rate : 9 6 BPM Atrial Rate : 97 BPM P-R Interval : 166 ms QRS Duration : 90 ms Q-T Interval : 377 ms QTC Calculation(Bazett) : 477 ms Calculated P Exeter : 38 degrees Calculated R Exeter : 92 degrees Calculated T Exeter : 34 degrees Sinus rhythm Probable left atrial enlargement Borderline right axis deviation Borderline ECG Confirmed by SHARMIN LOPEZ MD ([id number]) on 02/16/2024 1:21:57 PM NAME : NIDA FRANCIS PID : [id number] : 1980 Gender : Female Race : ORD : Procedure Date : Feb 16 2024 12:56:57 Edit Date : Feb 16 2024 13:22:00 Diagnosis: Sinus rhythm Probable left atrial enlargement Borderline right axis deviation Borderline ECG Confirmed by SHARMIN LOPEZ MD ([id number]) on 02/16/2024 1:21:57 PM Test Reason : Location : 402 : FVED fved21 Overread By : SHARMIN LOPEZ MD Edited By : SHARMIN LOPEZ MD Referred By : , Acquired by : , [facility] Electrocardiogram Ventricular Rate : 9 6 BPM Atrial Rate : 97 BPM P-R Interval : 166 ms QRS Duration : 90 ms Q-T Interval : 377 ms QTC Calculation(Bazett) : 477 ms Calculated P Exeter : 38 degrees Calculated R Exeter : 92 degrees Calculated T Exeter : 34 degrees Sinus rhythm Probable left atrial enlargement Borderline right axis deviation Borderline ECG Confirmed by SHARMIN LOPEZ MD ([id number]) on 02/16/2024 1:21:50 PM NAME : NIDA FRANCIS PID : [id number] : 1980 Gender : Female Race : ORD : Procedure Date : Feb 16 2024 12:56:57 Edit Date : Feb 16 2024 13:21:51 Diagnosis: Sinus rhythm Probable left atrial enlargement Borderline right axis deviation Borderline ECG Confirmed by SHARMIN LOPEZ MD ([id number]) on 02/16/2024 1:21:50 PM Test Reason : Location : 402 : FVED fved21 Overread By : SHARMIN LOPEZ MD Edited By : SHARMIN LOPEZ MD Referred By : , Acquired by : , [facility] HCG QUALITATIVEon 02-16-2024 HCG, QUALITATIVE Negative Normal Negative [facility] Comment on above: Order Comment: Speci men Type: BLOOD SPECIMEN Ordering Facility: [facility] Address: [address] [place] [address] Performed By: #### H #### [facility] CLIA [id number] [address] [place] [address] [place] HISTORY PHYSICALon HISTORY PHYSICAL HNO ID: [id number] Author: FELECIA ELY MD Service: ? Author Type: Physician Type: H&P Filed: 02/16/2024 22:21 Note Text: [facility] NDIA FRANCIS : 1980 AGE: 43 SEX: F CSN: [id number] HOSP SVC: Obs Unit LOCATION: [id number] 02/16/2024 Felecia Ely MD SUBJECTIVE: This is a patient who came in the hospital with abdominal pain, nausea, and vomiting. Stated she is unable to keep anything down. 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 Patient states that for the past 2 days she has been unable to tolerate any p.o. intake due to nausea and vomiting. 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 Denies shortness of breath, denies urinary symptoms. Last menstrual cycle in September, states that she is usually irregular. Past abdominal surgeries include cholecystectomy. Patient states that she has had similar symptoms in the past over the past few years ASSESSMENT AND PLAN: 1. Epigastric abdominal pain. Admitted to the hospital. CMP, lipase, amylase. Ultrasound of the right upper quadrant. Pain control. 2. Nausea and vomiting. Plan symptomatic treatment with Zofran, IV hydration. Monitor electrolytes. Consult with GI for evaluation with endoscopy. Consider gastric emptying study. 3. Acute renal failure, likely related to dehydration. IV fluids. Follow up CMP. Monitor urine output. If compromised, ultrasound of renal. 4. Hypokalemia, replaced. 5. History of asthma. Bronchodilator as needed. 6. Prior history of hyperlipidemia, cerebrovascular accident. Seemed to be at baseline. Discussed with the ED. We will follow up. PAST MEDICAL HISTORY Diagnosis Date Asthma Bipolar 1 disorder (HCC) Borderline personality disorder (HCC) Cannabis dependence (HCC) Cerebral arteritis 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 DRIVER vasculitis (HCC) CVA (cerebral vascular accident) (HCC) Gallstones Generalized anxiety disorder GERD (gastroesophageal reflux disease) High cholesterol Hypertension Obesity Panic disorder without agoraphobia Pneumonia Psychiatric disorder anxiety, bi-polar PTSD (post-traumatic stress disorder) Restless leg syndrome Saccular aneurysm Sensorineural hearing loss Stroke (HCC) 11/2015 Social History Tobacco Use Smoking status: Every Day Current packs/day: 1.00 Average packs/day: 1 pack/day for 13.0 years (13.0 ttl pk-yrs) Types: Cigarettes Smokeless tobacco: Never Vaping Use Vaping status: Never Used Substance Use Topics Alcohol use: No Drug use: Yes Types: Marijuana Comment: weekly FAMILY HISTORY Problem Relation Age of Onset Hypertension Mother Depression Mother Hypertension Father Depression Father other (crohns) Maternal Grandmother Cancer Paternal Grandfather Breast Cancer Other 50 PAST SURGICAL HISTORY Procedure Laterality Date DENTAL SURGERY HX wisdom teeth EGD DIAGNOSTIC LAPAROSCOPY SURG CHOLECYSTECTOMY 08/24/2017 MIDLINE INSERTION/CONSULT 08/21/2016 ORTHOPEDICS SURGERY HX right foot PICC LINE INSERT/CONSULT 12/19/2015 SIGMOIDOSCOPY Lab Results Component Value Date HBA1C 5.5 10/14/2020 HBA1C 5.5 02/19/2019 HBA1C 5.3 11/10/2017 R.O.S negative other than HPI AND PMH all other SYS reviewed and negative. Current Facility-Administered Medications Medication Dose Route Frequency Provider Last Rate Last Admin NaCl 0.9% iv flush bag 20 mL INTRAVENOUS PRN Lamine Soni, amLODIPine 5 mg tab(s) (NORVASC) 5 mg ORAL DAILY Lamine Soni DO atorvastatin 80 mg tab(s) (LIPITOR) 80 mg ORAL AT BEDTIME Lamine Soni, albuterol HFA 90 mcg/actuation 2 Puff (PROVENTIL HFA, VENTOLIN HFA) 2 Puff INHALATION q 4 H PRN Lamine Soni DO lamoTRIgine (LaMICtal) tab(s) 150 mg 150 mg ORAL q 12 HR Lamine Soni, rOPINIRole 0.25 mg tab(s) (REQUIP) 0.25 mg ORAL AT BEDTIME Lamine Soni DO ondansetron 4 mg tab(s) (ZOFRAN) 4 mg ORAL q 6 H PRN Lamine Soni DO Or ondansetron (PF) 4 mg injection (ZOFRAN) 4 mg INTRAVENOUS q 6 H PRN Lamine Soni DO 4 mg at 02/16/24 1630 acetaminophen 650 mg tab(s) (TYLENOL) 650 mg ORAL q 6 H PRN Lamine Soni DO pantoprazole 40 mg injection (PROTONIX) 40 mg INTRAVENOUS DAILY (6 AM) Lamine Soni DO 40 mg at 02/16/24 2040 No intake or output data in the 24 hours ending 02/16/24 2221 DATA: CBC: Recent Labs 02/16/24 0955 WBC 13.44* RBC 5.15 HB 15.7* HCT 43.8 PLT 229 MCV 85.0 MCH 30.5 MPV 12.4 CMP: Recent Labs 02/16/24 0955 NA 136 K 3.4* CHLOR 91* CO2 24 BUN 41* CREAT 1.47* GLUC 118* TPROT 9.0* CA 10.4* MG 2.2 TBILI 0.6 ALKPHOS 82 ALT 32 AST 24 ANION 21* Glucose (mg/dL) Date Value 02/16/2024 118 (H) BUN (mg/dL) Date Value 02/16/2024 41 (H) Creatinine (mg/dL) Date Value 02/16/2024 1.47 (H) Sodium (mmol/L) Date Value 02/16/2024 136 (more content not included)... Normal [facility] Lipase SerPl-cCncon 02-16-20 Lipase [Catalytic activity/Vol] 89 U/L High [facility] Comment on above: Order Comment: Speci men Type: BLOOD SPECIMEN Ordering Facility: [facility] Address: [address] [place] [address] Performed By: #### 2 4323-8, 3039-3, #### [facility] CLIA [id number] [address] [place] [address] [place] Magnesium SerPl-mCncon 02-15 Magnesium [Mass/Vol] 2.2 mg/dL Normal 1.7-2.3 [facility] Comment on above: Order Comment: Speci men Type: BLOOD SPECIMEN Ordering Facility: [facility] Address: [address] [place] [address] Performed By: #### 2 4323-8, 3039-3, #### [facility] CLIA [id number] [address] [place] [address] [place] US ABD RIGHT UPPER QUADRANTo n 02-16-2024 US ABD RIGHT UPPER QUADRANT * * *Final Report* * * DATE OF EXAM: Feb 16 2024 10:34AM FVU 1032 - US ABD RIGHT UPPER QUADRANT / PROCEDURE REASON: RUQ pain, no fever, no elev WBC * * * * Physician Interpretation * * * * EXAMINATION: RIGHT UPPER QUADRANT ULTRASOUND CLINICAL HISTORY: RUQ pain, no fever, no elev WBC TECHNIQUE: Sonography of the right upper quadrant was performed. Images were obtained and stored in a permanent archive. MQ: URUQ_2 COMPARISON: CT abdomen/pelvis 06/21/2022 RESULT: Pancreas: Normal sonographic appearance. Portions obscured: tail Liver: Echotexture: Normal, homogeneous. Echogenicity: Normal Surface contour: Smooth Lesions: None. Biliary: No intrahepatic biliary duct dilation. CBD: 0.2 cm at the hilum. Gallbladder: Prior cholecystectomy Right Kidney: No hydronephrosis. Ascites: None. IMPRESSION: Normal sonographic appearance of the liver with no hepatic lesion. Agency Recruiter: [facility] Transcribe Date/Time: Feb 16 2024 11:53A Dictated by : ROMAIN CHARLTON MD This examination was interpreted and the report reviewed and electronically signed by: ROMAIN CHARLTON MD on Feb 16 2024 11:55AM EST [id number] N Normal [facility] Urinalysis complete panel (U )on 02-16-2024 Bacteria LM.HPF (Urine sed) [#/Area] Few Abnormal None Seen [facility] Comment on above: Order Comment: Speci men Type: URINE SPECIMENOrdering Facility: [facility] Address: [address] [place] [address] Performed By: #### 2 4356-8 ####[facility] [id number] [place] [address] [place] Bilirubin Ql (U) Negative Normal Negative [facility] Comment on above: Order Comment: Speci men Type: URINE SPECIMENOrdering Facility: [facility] Address: [address] [place] [address] Performed By: #### 2 4356-8 ####[facility] [id number] [place] [id number] [place] Clarity (Unsp spec) Dense Turbid Abnormal Clear [facility] Comment on above: Order Comment: Speci men Type: URINE SPECIMENOrdering Facility: [facility] Address: [facility] [place] [address] Performed By: #### 2 4356-8 ####[facility] [id number] [place] [id number] [place] Color (U) Light [place] Abnormal Yellow [facility] Comment on above: Order Comment: Speci men Type: URINE SPECIMENOrdering Facility: [facility] Address: [address] [place] [address] Performed By: #### 2 4356-8 ####[facility] [id number] [address] [place] Epithelial cells LM.HPF (Urine sed) [#/Area] Many Normal [facility] Comment on above: Order Comment: Speci men Type: URINE SPECIMENOrdering Facility: [facility] Address: [address] [place] [address] Performed By: #### 2 4356-8 ####[facility]ORYCLIA [id number] [address] Glucose Test strip (U) [Mass/Vol] Trace Normal Trace, Negative [facility] Comment on above: Order Comment: Speci men Type: URINE SPECIMENOrdering Facility: [facility] Address: [address] [place] [address] Performed By: #### 2 4356-8 ####[facility]ORYCLIA [id number] [place] [address] [place] Hemoglobin Ql (U) 2+ Abnormal Negative, Trace [facility] Comment on above: Order Comment: Speci men Type: URINE SPECIMENOrdering Facility: [facility] Address: [address] [place] [address] Performed By: #### 2 4356-8 ####[facility]ORYCLIA [id number] [place] [address] [place] Hyaline casts (Urine sed) [#/Area] /[LPF] Abnormal 0 /LPF [facility] Comment on above: Order Comment: Speci men Type: URINE SPECIMENOrdering Facility: [facility] Address: [address] [place] [address] Performed By: #### 2 4356-8 ####[facility]ORYCLIA [id number] [address] [place] Ketones Ql (U) 1+ Abnormal Negative, Trace [facility] Comment on above: Order Comment: Speci men Type: URINE SPECIMENOrdering Facility: [facility] Address: [address] [place] [address] Performed By: #### 2 4356-8 ####[facility] [id number] [place] [id number] [place] Leukocyte esterase Test strip Ql (U) Negative Normal Negative, 25 Arielle/uL [facility] Comment on above: Order Comment: Speci men Type: URINE SPECIMENOrdering Facility: [facility] Address: [address] [place] [address] Performed By: #### 2 4356-8 ####[facility]ORYCLIA [id number] [place] [address] [place] Nitrite Ql (U) Negative Normal Negative [facility] Comment on above: Order Comment: Speci men Type: URINE SPECIMENOrdering Facility: [facility] Address: [address] [place] [address] Performed By: #### 2 4356-8 ####[facility]ORYCLIA [id number] [place] [address] [place] pH (U) 5.5 [pH] Normal 5.0-8.0 [facility] Comment on above: Order Comment: Speci men Type: URINE SPECIMENOrdering Facility: [facility] Address: [address] [place] [address] Performed By: #### 2 4356-8 ####[facility] [id number] [place] [address] [place] Protein (U) [Mass/Vol] 2+ Abnormal Trace , Negative [facility] Comment on above: Order Comment: Speci men Type: URINE SPECIMENOrdering Facility: [facility] Address: [address] [place] [address] Performed By: #### 2 4356-8 ####[facility]ORYCLIA [id number] [place] [address] [place] RBC LM.HPF (Urine sed) [#/Area] 11-25 /HPF Abnormal 0-3 /HPF [facility] Comment on above: Order Comment: Speci men Type: URINE SPECIMENOrdering Facility: [facility] Address: [address] [place] [address] Performed By: #### 2 4356-8 ####[facility] [id number] [place] [address] [place] Specific gravity (U) [Rel density] 1.030 Normal 1.005-1.030 [facility] Comment on above: Order Comment: Speci men Type: URINE SPECIMENOrdering Facility: [facility] Address: [address] [place] [address] Performed By: #### 2 4356-8 ####[facility] [id number] [place] [id number] [place] Urobilinogen Ql (U) 1+ Abnormal Normal [facility] Comment on above: Order Comment: Speci men Type: URINE SPECIMENOrdering Facility: [facility] Address: [address] [place] [address] Performed By: #### 2 4356-8 ####[facility] [id number] [place] [address] [place] WBC LM.HPF (Urine sed) [#/Area] 6-10 /HPF Abnormal 0-5 /HPF [facility] Comment on above: Order Comment: Speci men Type: URINE SPECIMENOrdering Facility: [facility] Address: [address] [place] [address] Performed By: #### 2 4356-8 ####[facility] [id number] [place] [id number] [place] EGD Study observation Narrat iveon 12-02-2023 [facility] Flexible sigmoidoscopy study on 12-02-2023 [facility] No Panel Informationon 12-01 Radiology Study observation (narrative) [facility] Telephone Encounteron 2023 Childcare Worker Authentication Interface Message Text Neurology Clinical Nurse'S Aides Teacher Note Attempted to call patient. LVM to return call to the Neurology department to schedule a neurology appt for stroke. Letter sent VALENTINA StoneN, RN, CMSRN Clinical Nurse'S Aides Teacher, Neurology Normal [facility] MR Brain WO contraston 07-13 [facility] Basic metabolic 2000 panelOr dered By: Avani Alonzo on 06-20-2023 Anion gap [Moles/Vol] 17 mmol/L 10 - 20 [facility] Calcium [Mass/Vol] 10.1 mg/dL 8.6 - 10. 3 mg/dL [facility] Chloride [Moles/Vol] 97 mmol/L Low 98 - 10 7 mmol/L [facility] CO2 [Moles/Vol] 25 mmol/L 21 - 31 mmol/L [facility] Creatinine [Mass/Vol] 1.23 mg/dL High 0.60 - 1.20 mg/dL [facility] GFR/1.73 sq M.predicted CKD-EPI (S/P/Bld) [Vol rate/Area] 56 Low - PINF [facility] Comment on above: 2020 CKD EPI Equatio n using Creatinine without Race Comment: Estimated glomerular filtration rate (eGFR) is calculated without a race coefficient. Values should be interpreted in the context of the patient's full clinical presentation. Reference: 1. Jhonatan C, Jose M, Tisha WILLOUGHBY, et al.. A Unifying Approach for GFR Estimation: Recommendations of the NKF-ASN Task Force on Reassessing the Inclusion of Race in Diagnosing Kidney Disease. Polish Journal of Kidney Diseases 202;79(2):268-88.e1. 2. N Engl J Med 1 Vol. 385 Issue 19 Pages 9637-8216 Glucose [Mass/Vol] 104 mg/dL 74 - 109 mg/dL [facility] Interpretation and review of laboratory results Abnormal [facility] Potassium [Moles/Vol] 3.5 mmol/L 3.5 - 5.0 mmol/L [facility] Sodium [Moles/Vol] 135 mmol/L Low 136 - 145 mmol/L [facility] Urea nitrogen [Mass/Vol] 25 mg/dL 7 - 25 mg/dL [facility] CBC WITH DIFFERENTIALon 05-27 Basophils (Bld) [#/Vol] 0.00 10*3/uL 0.00 - 0.20 K/uL [facility] Basophils/100 WBC (Bld) 0.3 % NINF - 1.9 % [facility] Eosinophils (Bld) [#/Vol] 0.00 10*3/uL 0.00 - 0.70 K/uL [facility] Eosinophils/100 WBC (Bld) 0.4 % 0.1 - 4.0 % [facility] Erythrocyte distribution width (RBC) [Ratio] 15.0 % High 11.5 - 14.5 % [facility] Hematocrit (Bld) [Volume fraction] 39.9 % 36.0 - 46.0 % [facility] Hemoglobin (Bld) [Mass/Vol] 13.8 g/dL 12.0 - 15.0 g/dL [facility] Interpretation and review of laboratory results Abnormal [facility] Lymphocytes (Bld) [#/Vol] 2.90 10*3/uL 1.00 - 4.80 K/uL [facility] Lymphocytes/100 WBC (Bld) 30.9 % 24.0 - 44.0 % [facility] MCH (RBC) [Entitic mass] 30.4 pg 26.0 - 34.0 pg [facility] MCHC (RBC) [Mass/Vol] 34.6 g/dL 32.0 - 35.9 g/dL [facility] MCV (RBC) [Entitic vol] 88 fL 80 - 100 fL [facility] Monocytes (Bld) [#/Vol] 0.80 10*3/uL 0.20 - 1.00 K/uL [facility] Monocytes/100 WBC (Bld) 8.8 % 2.0 - 11.0 % [facility] Neutrophils (Bld) [#/Vol] 5.70 10*3/uL 1.50 - 8.00 K/uL [facility] Neutrophils/100 WBC (Bld) 59.6 % 31.0 - 76.0 % [facility] Nucleated RBC (Bld) [#/Vol] 0.01 10*3/uL [facility] Nucleated RBC/100 WBC (Bld) [Ratio] [facility] Platelet mean volume (Bld) [Entitic vol] 10.4 fL 7.5 - 11.2 fL [facility] Platelets (Bld) [#/Vol] 278 10*3/uL 150 - 400 K/uL [facility] RBC (Bld) [#/Vol] 4.54 10*6/uL [facility] WBC (Bld) [#/Vol] 9.5 10*3/uL 4.5 - 11.5 K/uL [facility] CT Cervical spine WO contras ton 06-20-2023 CT DLP 175.20 (mGy.cm) [facility] Work Phone: CT Series HEAD & C-SPINE [facility] Work Phone: CTDI VOL 6.87 (mGy) [facility] Work Phone: PHANTOM TYPE IEC Body Dosimetry Phantom [facility] Work Phone: EXAMINATION: CT C-SPINE W/O CONTRAST 06/20/2023 07:04 PM CLINICAL HISTORY: Fall ASSOCIATED DIAGNOSIS: Fall ORDERING PROVIDER: JAYNE KERNS TECHNOLOGISTS NOTE: COMPARISON: None TECHNIQUE: Thin isotropic axial images were obtained from the skull base to the upper thoracic spine without intravenous contrast. 2D sagittal and coronal reconstructions were obtained from the axial data. FINDINGS: Vertebrae: No acute fracture or traumatic malalignment. No aggressive osseous lesions. Soft Tissues: No acute abnormality. IMPRESSION: No acute cervical spine fracture or traumatic malalignment. MACRO: None Bossman Singh MD - 06/20/2023 EXAMINATION: CT C-SPINE W/O CONTRAST 06/20/2023 07:04 PM CLINICAL HISTORY: Fall ASSOCIATED DIAGNOSIS: Fall ORDERING PROVIDER: JAYNE KERNS TECHNOLOGISTS NOTE: COMPARISON: None TECHNIQUE: Thin isotropic axial images were obtained from the skull base to the upper thoracic spine without intravenous contrast. 2D sagittal and coronal reconstructions were obtained from the axial data. FINDINGS: Vertebrae: No acute fracture or traumatic malalignment. No aggressive osseous lesions. Soft Tissues: No acute abnormality. IMPRESSION: No acute cervical spine fracture or traumatic malalignment. MACRO: None [facility] Work Phone: [facility] Work Phone: CT Head WO contrastOrdered B y: Bossman Quezada on 06-20-2023 CT DLP 750.23 (mGy.cm) [facility] Work Phone: CT Series HEAD & C-SPINE,HEAD & C-SPINE [facility] Work Phone: CTDI VOL 0.34 (mGy),32.64 (mGy) [facility] Work Phone: PHANTOM TYPE IEC Head Dosimetry Phantom,IEC Head Dosimetry Phantom [facility] Work Phone: [facility] Work Phone: CT Head WO contraston 2023 EXAMINATION: CT HEAD W/O CONTRAST 06/20/2023 07:04 PM CLINICAL HISTORY: Fall ASSOCIATED DIAGNOSIS: Fall ORDERING PROVIDER: JAYNE KERNS TECHNKAMRYN NOTE: COMPARISON: None TECHNIQUE: Thin axial imaging of the head was performed without intravenous contrast. FINDINGS: No acute hemorrhage. Remote lacunar infarcts are seen in the right frontal lobe and bilateral coronal radiata. Negative for acute intracranial hemorrhage, midline shift or hydrocephalus. The ventricles are within normal limits for age. The skull, paranasal sinuses and tympanomastoid cavities are normal. IMPRESSION: Remote lacunar infarcts are seen in the right frontal lobe and bilateral coronal radiata. Elective MR brain with and without contrast and neurology consultation is recommended. MACRO: (-I1-) RADIOLOGY Bossman Quezada MD - 06/20/2023 EXAMINATION: CT HEAD W/O CONTRAST 06/20/2023 07:04 PM CLINICAL HISTORY: Fall ASSOCIATED DIAGNOSIS: Fall ORDERING PROVIDER: JAYNE KERNS TECHNOLOGISTS NOTE: COMPARISON: None TECHNIQUE: Thin axial imaging of the head was performed without intravenous contrast. FINDINGS: No acute hemorrhage. Remote lacunar infarcts are seen in the right frontal lobe and bilateral coronal radiata. Negative for acute intracranial hemorrhage, midline shift or hydrocephalus. The ventricles are within normal limits for age. The skull, paranasal sinuses and tympanomastoid cavities are normal. IMPRESSION: Remote lacunar infarcts are seen in the right frontal lobe and bilateral coronal radiata. Elective MR brain with and without contrast and neurology consultation is recommended. MACRO: (-I1-) [facility] [employer] [facility] Work Phone: HEPATIC FUNCTION PANELon Albumin [Mass/Vol] 4.9 g/dL 3.5 - 5.7 g/dL [facility] Work Phone: ALP [Catalytic activity/Vol] 58 U/L [facility] Work Phone: ALT [Catalytic activity/Vol] 18 U/L [facility] Work Phone: AST [Catalytic activity/Vol] 17 U/L [facility] Work Phone: Bilirubin [Mass/Vol] 0.7 mg/dL 0.3 - 1 .0 mg/dL [facility] Work Phone: Bilirubin.direct [Mass/Vol] 0.10 mg/dL 0.03 - 0.18 mg/dL [email or web address] Work Phone: Interpretation and review of laboratory results Normal [email or web address] Work Phone: Protein [Mass/Vol] 7.6 g/dL 6.0 - 8.3 g/dL [facility] Work Phone: Note updated reference ranges. [email or web address] Work Phone: [email or web address] Work Phone: HIGH SENSITIVITY TROPONIN Io n 06-20-2023 Troponin I.cardiac DL <= 0.01 ng/mL [Mass/Vol] 5 ng/L NINF - 15 ng/L [facility] LACTIC ACIDon 06-20-2023 Interpretation and review of laboratory results Normal [email or web address] Work Phone: Lactate [Moles/Vol] 0.9 mmol/L 0.5 - 1. 6 mmol/L [facility] Work Phone: [email or web address] Work Phone: LIPASEon 06-20-2023 Interpretation and review of laboratory results Normal [facility] Work Phone: Lipase [Catalytic activity/Vol] 57 U/L NINF [facility] Work Phone: MAGNESIUMon 06-20-2023 Interpretation and review of laboratory results Normal [facility] Work Phone: Magnesium [Mass/Vol] 2.2 mg/dL 1.9 - 2 .7 mg/dL [email or web address] Work Phone: Comment on above: Note updated referen ce ranges. [email or web address] Work Phone: No Panel Informationon 06-20 Extra Tube Done [email or web address] Radiology Study observation (narrative) [email or web address] Work Phone: No Panel InformationOrdered By: Avani Rosado on 06-20-2023 [email or web address] Troponin I.cardiac DL <= 0.0 1 ng/mL [Mass/Vol]on 06-20-2023 Interpretation and review of laboratory results Normal [email or web address] High Sensitivity Cardiac Troponin I (hsTnI) assay has replaced the conventional troponin assay at [facility]. All results are reported in whole numbers representing ng/L. Repeat test times for ruling out acute coronary syndrome (ACS) are every 2 hours instead of every 6-8 hours. Akaav-ad-rhta conventional troponin (I-stat) will remain available in the [facility] results obtained by different labs or methods are not comparable. Elevated troponin can result from acute myocardial infarction (coronary etiology) or myocardial injury (non-coronary etiology) always consider both. For ruling out acute coronary syndrome (ACS), lab values are always used in conjunction with clinical risk assessment (e.g., HEART score). Interpreting initial value in ruling out ACS Less than 5 ng/L below lower limit of quantification essentially rules out ACS if chest pain began more than 3 hours prior to test and assessed risk is low 5 - 49 ng/L indeterminate consider repeat value in 2 hours depending on risk assessment 50 ng/L or greater concern for ACS or myocardial injury Interpreting repeated values in ruling out ACS. Always compare to initial value obtained: Increase of less than 5 ng/L essentially rules out ACS if chest pain began more than 3 hours prior to initial test and assessed risk is low Increase of 5 - 19 ng/L indeterminate consider another repeat value in 2 hours depending on risk assessment Increase of 20 ng/L or greater Concern for ACS or myocardial injury Any absolute value of 50 ng/L or greater concern for ACS or myocardial injury Intermediate hsTnI values DO NOT mandate admission to a cardiology or telemetry unit. They need to be interpreted within the clinical context using provider judgement. When using hsTnI to calculate the HEART score, use the 99 % Upper Reference Limit of 15 ng/L as the normal limit (i.e. <=15 ng/L = 0 points, 16-45 ng/L = 1 points, >45 ng/L = 2 points). [facility] MRA BRAIN WO/W IVCONon 01-07 MRA BRAIN WO/W IVCON * * *Final Report* * * DATE OF EXAM: Jan 07 2023 5:14PM Q 0273 - MRA BRAIN WO/W IVCON / PROCEDURE REASON: 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) * * * * Physician Interpretation * * * * EXAMINATION: MRA BRAIN WO/W IVCON, MRI BRAIN WO/W IVCON HISTORY: 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) TECHNIQUE: Routine noncontrast MRI brain protocol including diffusion and gradient echo images. Intracranial 3D [id number]-[id number] MRA with 2D multiplanar and 3D maximum intensity projections calculated on the imaging workstation under physician supervision. High resolution T1 SPACE pre and post gadolinium sequences optimized for the evaluation of the vessel saul. M: MRAB_3 Contrast: IV administration of 19 ml of Dotarem COMPARISON: Brain MRI and MRA 10/10/2020 RESULT: BRAIN: Acute Change: No evidence of an acute intracranial process. Hemorrhage: No evidence of prior parenchymal hemorrhage on the susceptibility weighted sequences. Mass Lesion/ Mass Effect: No evidence of an intracranial mass or extra-axial fluid collection. No significant mass effect. Chronic Change: Minimal scattered presumed chronic white matter microangiopathic changes. Remote infarct in the right precentral gyrus. Stable scattered remote lacunar infarcts including in the right anterior oneill radiata, left oneill radiata, both posterior putamen. Parenchyma: No significant volume loss for age. Ventricles: Normal caliber and morphology. Skull Base: Hypothalamic and pituitary region are grossly normal. Craniocervical junction is normal. No significant marrow replacement process. Vasculature: Major intracranial arterial structures and dural venous sinuses demonstrate typical flow voids, suggesting patency by spin echo criteria. Other: The visualized paranasal sinuses and mastoid air cells are clear. The orbits and extracranial soft tissues are unremarkable. INTRACRANIAL MRA: Anterior circulation: Stable approximately 3 x 2 mm medially projecting outpouching from the proximal left cavernous ICA that again may reflect an aneurysm. Intracranial ICAs are otherwise patent. A1 segments are codominant. The ACAs are patent. The right superior M2 segment is again occluded. The MCAs are otherwise patent without high-grade luminal stenosis or large vessel occlusion. Posterior circulation: Intradural vertebral arteries are patent with right-sided dominance. The PICA, AICA and SCA origins are patent. The basilar artery is normal in course and caliber. The rack worker are patent without high-grade luminal stenosis. VESSEL WALL IMAGES: No evidence of pathologic concentric or eccentric vessel wall thickening or enhancement in the anterior or posterior circulation. IMPRESSION: No acute intracranial abnormality including no evidence of an acute or recent parenchymal infarct. Stable remote parenchymal infarcts. Stable chronic right superior M2 division occlusion and stable MRA. No convincing pathologic vessel wall thickening or enhancement in the anterior or posterior circulation to suggest an active inflammatory vessel wall process.. [facility] Rec[facility] Transcribe Date/Time: Jan 07 2023 7:13P Dictated by : MARTHA MORENO DO This examination was interpreted and the report reviewed and electronically signed by: MARTHA MORENO DO on Jan 07 2023 7:25PM EST [id number] Normal [facility] MRI BRAIN WO/W IVCONon 01-07 MRI BRAIN WO/W IVCON * * *Final Report* * * DATE OF EXAM: Jan 07 2023 5:14PM [facility] - MRI BRAIN WO/W IVCON / PROCEDURE REASON: 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) * * * * Physician Interpretation * * * * EXAMINATION: MRA BRAIN WO/W IVCON, MRI BRAIN WO/W IVCON HISTORY: 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) TECHNIQUE: Routine noncontrast MRI brain protocol including diffusion and gradient echo images. Intracranial 3D ghff-em-vappll MRA with 2D multiplanar and 3D maximum intensity projections calculated on the imaging workstation under physician supervision. High resolution T1 SPACE pre and post gadolinium sequences optimized for the evaluation of the vessel saul. M: MRAB_3 Contrast: IV administration of 19 ml of Dotarem COMPARISON: Brain MRI and MRA 10/10/2020 RESULT: BRAIN: Acute Change: No evidence of an acute intracranial process. Hemorrhage: No evidence of prior parenchymal hemorrhage on the susceptibility weighted sequences. Mass Lesion/ Mass Effect: No evidence of an intracranial mass or extra-axial fluid collection. No significant mass effect. Chronic Change: Minimal scattered presumed chronic white matter microangiopathic changes. Remote infarct in the right precentral gyrus. Stable scattered remote lacunar infarcts including in the right anterior oneill radiata, left oneill radiata, both posterior putamen. Parenchyma: No significant volume loss for age. Ventricles: Normal caliber and morphology. Skull Base: Hypothalamic and pituitary region are grossly normal. Craniocervical junction is normal. No significant marrow replacement process. Vasculature: Major intracranial arterial structures and dural venous sinuses demonstrate typical flow voids, suggesting patency by spin echo criteria. Other: The visualized paranasal sinuses and mastoid air cells are clear. The orbits and extracranial soft tissues are unremarkable. INTRACRANIAL MRA: Anterior circulation: Stable approximately 3 x 2 mm medially projecting outpouching from the proximal left cavernous ICA that again may reflect an aneurysm. Intracranial ICAs are otherwise patent. A1 segments are codominant. The ACAs are patent. The right superior M2 segment is again occluded. The MCAs are otherwise patent without high-grade luminal stenosis or large vessel occlusion. Posterior circulation: Intradural vertebral arteries are patent with right-sided dominance. The PICA, AICA and SCA origins are patent. The basilar artery is normal in course and caliber. The rack worker are patent without high-grade luminal stenosis. VESSEL WALL IMAGES: No evidence of pathologic concentric or eccentric vessel wall thickening or enhancement in the anterior or posterior circulation. IMPRESSION: No acute intracranial abnormality including no evidence of an acute or recent parenchymal infarct. Stable remote parenchymal infarcts. Stable chronic right superior M2 division occlusion and stable MRA. No convincing pathologic vessel wall thickening or enhancement in the anterior or posterior circulation to suggest an active inflammatory vessel wall process.. Agency Recruiter: DANIEL Transcribe Date/Time: Jan 07 2023 7:13P Dictated by : MARTHA MORENO DO This examination was interpreted and the report reviewed and electronically signed by: MARTHA MORENO DO on Jan 07 2023 7:25PM EST [id number] N Normal [facility] No Panel Informationon 01-07 [facility] CNOVon 11-03-2022 CNOV Office Visit (RHEUMN ) NIDA FRANCIS ([id number]) 1980 F Date Time Provider Department 11/03/22 11:00 AM KATIE ZHONG During your visit today, we recorded the following information about you: Temperature Pulse Blood pressure Weight 97 degrees 77/minute 123/71 96.9 kg Katie Armas MD 11/04/2022 2:58 PM Signed CLINICAL SHEET Nida Francis is a 41 year old female here for follow up for diagnosis of Primary CNSV Background illness - 2015 - 11/2015: splenic and right renal infarcts, 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 - 2016 Brain MRI: acute infarction in the distribution of the right MCA with additional punctate acute infarcts on the contralateral side superimposed on chronic insults. - Brain MRA: multifocal anterior and posterior circulation stenoses with occlusion of the proximal sylvian branch of the right MCA. - Brain angiogram: diffuse saccular and fusiform aneurysms (right more than left) with distal small vessel neovascularization. - Lumbar puncture: 11 nucleated cells, 94% lymphocytes, with evidence of intrathecal immunoglobulin synthesis (both oligoclonal bands and [place] were positive). Cytology, flow cytometry, and infectious work-up of the CSF were negative. Serologic infectious work-up revealed a negative HIV, hepatitis panel, and urine histology. - Rheumatologic work-up was significant for an LJ 1:640 in a nucleolar pattern but otherwise produced normal dsDNA, ALPHONSE, RF, complement levels, NIKOS level, Hu, cryoglobulins, ANCA, and a negative lupus anticoagulant panel. ESR and CRP were normal. - Given lymphocytic pleocytosis on LP in setting of saccular aneurysms, one of the leading diagnoses was CNSV - Patient was pulsed with Methylprednisolone 1000mg IV x 3 days and discharged on Prednisone 60mg qD with taper. - Repeat cerebral angiogram showed resolution of saccular and fusiform aneurysms. -2018: - 2017 brain MRI: acute infarct left lentiform nucleus, posterior limb of left internal capsule and left oneill radiata. 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 Treated with IV solumedrol 1g x3 days. 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 MMF decreased to 1000 mg BID CYC 04/09 - 08/09 MMF started 10/09 Interval history: Stable No headaches No deficits taking cellcpet regularly Current Outpatient Medications Medication Sig mycophenolate Mofetil (CELLCEPT) 500 mg tablet Take 2 tablets by mouth twice daily. lamoTRIgine (LAMICTAL) 150 mg tablet TAKE 1 TABLET BY MOUTH TWICE DAILY metoprolol succinate ER (TOPROL XL) 50 mg 24 hr tablet TAKE 1 TABLET BY MOUTH ONCE DAILY rOPINIRole (REQUIP) 0.25 mg tablet TAKE 1 TABLET BY MOUTH NIGHTLY AT BEDTIME albuterol HFA (PROVENTIL HFA, VENTOLIN HFA) 90 mcg/actuation inhaler INHALE TWO (2) PUFFS EVERY 4 HOURS NEEDED FOR WHEEZING OR SHORTNESS OF BREATH ondansetron orally disintegrating (ZOFRAN ODT) 4 mg disintegrating tablet Take 1 tablet by mouth every 6 hours as needed. gabapentin (NEURONTIN) 100 mg capsule Take 2 capsules by mouth three times daily for 28 days. ergocalciferol 50,000 unit capsule (VITAMIN D2, DRISDOL) TAKE 1 CAPSULE BY MOUTH ONCE WEEKLY *EMERGENCY REFILL* amLODIPine (NORVASC) 5 mg tablet Take 1 tablet by mouth once daily. pantoprazole DR (PROTONIX) 40 mg tablet TAKE ONE (1) TABLET BY MOUTH TWICE DAILY LORazepam (ATIVAN) 1 mg tablet Take 1 mg by mouth as needed. aspirin 81 mg chewable tablet Take 1 tablet by mouth once daily. acetaminophen (TYLENOL) 325 mg tablet Take 2 tablets by mouth every 6 hours. atorvastatin (LIPITOR) 80 mg tablet TAKE 1 TABLET BY MOUTH ONCE DAILY iv contrast (will be provided with radiology test) MRI Brain Inject, intravenously, once for 1 dose.No IV access, insert saline lock prior to beginning of sedation, infusion, injection of imaging exam.Discontinue saline lock post exam. If Pt. has a central line or IVAD, may access for administration according to line specific nursing protocol.Once exam is complete flush line and de-access according to line specific nursing protocol in the MR contrast administration guidelines link iv contrast (will be provided with radiology test) MRA Brain Inject, intravenously, once for 1 dose. No IV access, insert saline lock prior to the beginning of sedation, infusion, injection of imaging exam. Discontinue saline lock post exam. If Pt. has a central line or IVAD, may access for administration according to line specific nursing protocol. Once exam is complete flush line and de-access according to line specific nursing protocol in the MR contrast administration guidelines link. tiZANidine HCl (ZANAFLEX) 4 mg capsule Take 1 capsule by mouth three times daily as needed for muscle spasm. (Karla (more content not included)... Normal [facility] CBC W Auto Differential pane l (Bld)on 06-21-2022 Basophils (Bld) [#/Vol] 0.03 10*3/uL Normal <0.11 [facility] Comment on above: Order Comment: Speci men Type: BLOOD SPECIMEN Ordering Facility: [facility] Address: [address] [address] Performed By: #### 2 4323-8, [id number], #### [facility] CLIA [id number] [address] [place] [address] [place] Basophils/100 WBC (Bld) 0.2 % Normal [facility] Comment on above: Order Comment: Speci men Type: BLOOD SPECIMEN Ordering Facility: [facility] Address: [address] [address] Performed By: #### 2 4323-8, [id number], #### [facility] CLIA [id number] [address] [place] [address] [place] Differential cell count method Nom (Bld) Auto Normal [facility] Comment on above: Order Comment: Speci men Type: BLOOD SPECIMEN Ordering Facility: [facility] Address: [address] [address] Performed By: #### 2 4323-8, [id number], #### [facility] CLIA [id number] [address] [place] [address] [place] Eosinophils (Bld) [#/Vol] 10*3/uL Normal <0.46 [facility] Comment on above: Order Comment: Speci men Type: BLOOD SPECIMEN Ordering Facility: [facility] Address: [address] [place] [address] Performed By: #### 2 432-8, [id number], #### [facility] CLIA [id number] [address] [place] [address] [place] Eosinophils/100 WBC (Bld) 0.0 % Normal [facility] Comment on above: Order Comment: Speci men Type: BLOOD SPECIMEN Ordering Facility: [facility] Address: [address] [place] [address] Performed By: #### 2 8, [id number], #### [facility] CLIA [id number] [address] [place] [address] [place] Erythrocyte distribution width (RBC) [Ratio] 13.8 % Normal 11.5-15.0 [facility] Comment on above: Order Comment: Speci men Type: BLOOD SPECIMEN Ordering Facility: [facility] Address: [address] [place] [address] Performed By: #### 2 432-8, [id number], #### [facility] CLIA [id number] [address] [place] [address] [place] Hematocrit (Bld) [Volume fraction] 40.6 % Normal 36.0-46.0 [facility] Comment on above: Order Comment: Speci men Type: BLOOD SPECIMEN Ordering Facility: [facility] Address: [address] [place] [address] Performed By: #### 2 4323-8, [id number], #### [facility] CLIA [id number] [address] [place] [address] [place] Hemoglobin (Bld) [Mass/Vol] 14.4 g/dL Normal 11.5-15.5 [facility] Comment on above: Order Comment: Speci men Type: BLOOD SPECIMEN Ordering Facility: [facility] Address: [address] [place] [address] Performed By: #### 2 4323-8, [id number], #### [facility] CLIA [id number] [address] [place] [address] [place] Immature granulocytes (Bld) [#/Vol] 0.08 10*3/uL Normal <0.10 [facility] Comment on above: Order Comment: Speci men Type: BLOOD SPECIMEN Ordering Facility: [facility] Address: [address] [place] [address] Performed By: #### 2 432-8, [id number], #### [facility] CLIA [id number] [address] [place] [address] [place] Immature granulocytes/100 WBC (Bld) 0.5 % Normal [facility] Comment on above: Order Comment: Speci men Type: BLOOD SPECIMEN Ordering Facility: [facility] Address: [address] [place] [address] Performed By: #### 2 4322-8, [id number], #### [facility] CLIA [id number] [address] [place] [address] [place] Lymphocytes (Bld) [#/Vol] 2.63 10*3/uL Normal 1.00-4.00 [facility] Comment on above: Order Comment: Speci men Type: BLOOD SPECIMEN Ordering Facility: [facility] Address: [address] [place] [address] Performed By: #### 2 4323-8, [id number], #### [facility] CLIA [id number] [address] [place] [address] [place] Lymphocytes/100 WBC (Bld) 16.1 % Normal [facility] Comment on above: Order Comment: Speci men Type: BLOOD SPECIMEN Ordering Facility: [facility] Address: [address] [address] Performed By: #### 2 4323-8, [id number], #### [facility] CLIA [id number] [address] [place] [address] [place] MCH (RBC) [Entitic mass] 30.3 pg Normal 26.0-34.0 [facility] Comment on above: Order Comment: Speci men Type: BLOOD SPECIMEN Ordering Facility: [facility] Address: [address] [address] Performed By: #### 2 4323-8, [id number], #### [facility] CLIA [id number] [address] [place] [address] [place] MCHC (RBC) [Mass/Vol] 35.5 g/dL Normal 30.5-36.0 [facility] Comment on above: Order Comment: Speci men Type: BLOOD SPECIMEN Ordering Facility: [facility] Address: [address] [place] [address] Performed By: #### 2 4323-8, [id number], #### [facility] CLIA [id number] [address] [place] [address] [place] MCV (RBC) [Entitic vol] 85.3 fL Normal 80.0-100.0 [facility] Comment on above: Order Comment: Speci men Type: BLOOD SPECIMEN Ordering Facility: [facility] Address: [address] [place] [address] Performed By: #### 2 4323-8, [id number], #### [facility] CLIA [id number] [address] [place] [address] [place] Monocytes (Bld) [#/Vol] 1.33 10*3/uL High <0.87 [facility] Comment on above: Order Comment: Speci men Type: BLOOD SPECIMEN Ordering Facility: [facility] Address: [address] Performed By: #### 2 4323-8, [id number], #### [facility] CLIA [id number] [address] [place] [address] [place] Monocytes/100 WBC (Bld) 8.2 % Normal [facility] Comment on above: Order Comment: Speci men Type: BLOOD SPECIMEN Ordering Facility: [facility] Address: [address] Performed By: #### 2 4323-8, [id number], #### [facility] CLIA [id number] [address] [place] [address] [place] Neutrophils (Bld) [#/Vol] 12.24 10*3/uL High 1.45-7.50 [facility] Comment on above: Order Comment: Speci men Type: BLOOD SPECIMEN Ordering Facility: [facility] Address: [address] [address] Performed By: #### 2 4328, [id number], #### [facility] CLIA [id number] [address] [place] [address] [place] Neutrophils/100 WBC (Bld) 75.0 % Normal [facility] Comment on above: Order Comment: Speci men Type: BLOOD SPECIMEN Ordering Facility: [facility] Address: [address] Performed By: #### 2 4323-8, [id number], #### [facility] CLIA [id number] [address] [place] [address] [place] Nucleated RBC (Bld) [#/Vol] 10*3/uL Normal <0.01 [facility] Comment on above: Order Comment: Speci men Type: BLOOD SPECIMEN Ordering Facility: [facility] Address: [address] [address] Performed By: #### 2 4323-8, [id number], #### [facility] CLIA [id number] [address] [place] [address] [place] Nucleated RBC/100 WBC (Bld) [Ratio] 0.0 /100 WBC Normal [facility] Comment on above: Order Comment: Speci men Type: BLOOD SPECIMEN Ordering Facility: [facility] Address: [address] [place] [address] Performed By: #### 2 4323-8, [id number], #### [facility] CLIA [id number] [address] [place] [address] [place] Platelet mean volume (Bld) [Entitic vol] 12.6 fL Normal 9.0-12.7 [facility] Comment on above: Order Comment: Speci men Type: BLOOD SPECIMEN Ordering Facility: [facility] Address: [address] [place] [address] Performed By: #### 2 4323-8, [id number], #### [facility] CLIA [id number] [address] [place] [address] [place] Platelets (Bld) [#/Vol] 272 10*3/uL Normal 150-400 [facility] Comment on above: Order Comment: Speci men Type: BLOOD SPECIMEN Ordering Facility: [facility] Address: [address] [place] [address] Performed By: #### 2 4323-8, [id number], #### [facility] CLIA [id number] [address] [place] [address] [place] RBC (Bld) [#/Vol] 4.76 10*6/uL Normal 3.90-5.20 [facility] Comment on above: Order Comment: Speci men Type: BLOOD SPECIMEN Ordering Facility: [facility] Address: [address] [place] [address] Performed By: #### 2 4323-8, [id number], #### [facility] CLIA [id number] [address] [place] [address] [place] WBC (Bld) [#/Vol] 16.31 10*3/uL High 3.70-11.00 [facility] Comment on above: Order Comment: Speci men Type: BLOOD SPECIMEN Ordering Facility: [facility] Address: [place] [address] Performed By: #### 2 4323-8, [id number], [id number] #### [facility] CLIA [id number] [place] [address] ABD/PEL W IVCONon 023 CT ABD/PEL W IVCON * * *Final Report* * * DATE OF EXAM: Jun 21 2022 12:23PM [facility] 0530 - CT ABD/PEL W IVCON / PROCEDURE REASON: Abdominal abscess/infection suspected * * * * Physician Interpretation * * * * EXAMINATION: CT ABDOMEN AND PELVIS WITH IV CONTRAST CLINICAL HISTORY: Vomiting and abdominal pain TECHNIQUE: CT of the abdomen and pelvis was performed using standard technique, scanning from just above the dome of the diaphragm to the symphysis pubis. MQ: CTAP_3 Contrast: IV: 100 ml of Omnipaque 350 CT Radiation dose: Integrated Dose-length product (DLP) for this visit = 907 mGy*cm. CT Dose Reduction Employed: Automated exposure control(AEC) and iterative recon COMPARISON: None. RESULT: Liver: No mass. Biliary: No bile duct dilation. Gallbladder is absent. Spleen: No mass. No splenomegaly. Pancreas: No mass or duct dilation. Adrenals: No mass. Kidneys: No mass, calculus or hydronephrosis. GI tract: No dilation or wall thickening. Appendix appears normal. No diverticulosis. Lymph nodes: No abdominal or pelvic lymphadenopathy. Mesentery/Peritoneum: No ascites or mass. Retroperitoneum: No mass. Vasculature: - Abdominal aorta and iliac arteries: No aneurysm. - Celiac and SMA: Patent without stenosis. - Portal venous system (SMV, splenic vein, portal vein and branches): Patent. - Hepatic veins: Patent. Pelvis: No mass, ascites or fluid collection. Bones/Soft Tissues: No significant finding. Lower thorax: Unremarkable. Branch Employment Coordinator (topogram) images: No additional findings. IMPRESSION: No acute disease. No abnormal mass. Agency Recruiter: DANIEL Transcribe Date/Time: Jun 21 2022 12:26P Dictated by : THEODORE TANNER MD This examination was interpreted and the report reviewed and electronically signed by: THEODORE TANNER MD on Jun 21 2022 12:37PM EST [id number] Normal [facility] metabolic 2000 panelon 06-21-2022 Albumin [Mass/Vol] 5.1 g/dL High 3.9-4.9 [facility] Comment on above: Order Comment: Speci men Type: BLOOD SPECIMEN Ordering Facility: [facility] Address: [address] [address] Performed By: #### 2 4323-8, [id number], #### [facility] CLIA [id number] [address] [place] [address] [place] ALP [Catalytic activity/Vol] 83 U/L Normal 34-123 [facility] Comment on above: Order Comment: Speci men Type: BLOOD SPECIMEN Ordering Facility: [facility] Address: [address] [address] Performed By: #### 2 4323-8, [id number], #### [facility] CLIA [id number] [address] [place] [address] [place] ALT [Catalytic activity/Vol] 23 U/L Normal 7-38 [facility] Comment on above: Order Comment: Speci men Type: BLOOD SPECIMEN Ordering Facility: [facility] Address: [address] [address] Performed By: #### 2 4323-8, [id number], #### [facility] CLIA [id number] [address] [place] [address] [place] Anion gap [Moles/Vol] 20 mmol/L High 9-18 [facility] Comment on above: Order Comment: Speci men Type: BLOOD SPECIMEN Ordering Facility: [facility] Address: [address] [address] Performed By: #### 2 4323-8, [id number], #### [facility] CLIA [id number] [address] [place] [address] [place] AST [Catalytic activity/Vol] Normal [facility] Comment on above: Order Comment: Speci men Type: BLOOD SPECIMEN Ordering Facility: [facility] Address: [address] [address] Result Comment: Unab le to assay due to interference from hemolysis. Suggest reorder as clinically indicated. Performed By: #### 2 4323-8, [id number], #### [facility] CLIA [id number] [address] [place] [address] [place] Bilirubin [Mass/Vol] 0.7 mg/dL Normal 0.2-1.3 [facility] Comment on above: Order Comment: Speci men Type: BLOOD SPECIMEN Ordering Facility: [facility] Address: [address] [address] Performed By: #### 2 4328, [id number], #### [facility] CLIA [id number] [address] [place] [address] [place] Calcium [Mass/Vol] 10.2 mg/dL Normal 8.5-10.2 [facility] Comment on above: Order Comment: Speci men Type: BLOOD SPECIMEN Ordering Facility: [facility] Address: [address] [address] Performed By: #### 2 4323-8, [id number], #### [facility] CLIA [id number] [address] [place] [address] [place] Chloride [Moles/Vol] 98 mmol/L Normal 97-105 [facility] Comment on above: Order Comment: Speci men Type: BLOOD SPECIMEN Ordering Facility: [facility] Address: [address] [address] Performed By: #### 2 4323-8, [id number], #### [facility] CLIA [id number] [address] [place] [address] [place] CO2 [Moles/Vol] 22 mmol/L Normal 22-30 [facility] Comment on above: Order Comment: Speci keron Type: BLOOD SPECIMEN Ordering Facility: [facility] Address: [address] [address] Performed By: #### 2 4323-8, [id number], #### [facility] CLIA [id number] [address] [place] [address] [place] Creatinine [Mass/Vol] 1.08 mg/dL High 0.58-0.96 [facility] Comment on above: Order Comment: Speci men Type: BLOOD SPECIMEN Ordering Facility: [facility] Address: [address] [place] [address] Performed By: #### 2 4323-8, [id number], #### [facility] CLIA [id number] [address] [place] [address] [place] ESTIMATED GLOMERULAR FILTRATION RATE 66 mL/min/1.73m??? Normal >=60 [facility] Comment on above: Order Comment: Davina cabrales Type: BLOOD SPECIMEN Ordering Facility: [facility] Address: [address] [place] [address] Result Comment: Karyn mated Glomerular Filtration Rate (eGFR) is calculated using the 2020 CKD-EPI creatinine equation. This equation utilizes serum creatinine, sex, and age as parameters. The creatinine assay has traceable calibration to isotope dilution-mass spectrometry. Refer to KDIGO guidelines for clinical interpretation. In patients with unstable renal function, e.g. those with acute kidney injury, the eGFR may not accurately reflect actual GFR. Performed By: #### 2 4323-8, [id number], #### [facility] CLIA [id number] [address] [place] [address] [place] Glucose [Mass/Vol] 137 mg/dL High 74-99 [facility] Comment on above: Order Comment: Speci men Type: BLOOD SPECIMEN Ordering Facility: [facility] Address: [address] [place] [address] Result Comment: The [place] Diabetes Association (ADA) provides guidance for cutoff values for fasting glucose and random glucose. The ADA defines fasting as no caloric intake for at least 8 hours. Fasting plasma glucose results between 100 to 125 mg/dL indicate increased risk for diabetes (prediabetes). Fasting plasma glucose results greater than or equal to 126 mg/dL meet the criteria for diagnosis of diabetes. In the absence of unequivocal hyperglycemia, results should be confirmed by repeat testing. In a patient with classic symptoms of hyperglycemia or hyperglycemic crisis, random plasma glucose results greater than or equal to 200 mg/dL meet the criteria for diagnosis of diabetes. Reference: Standards of Medical Care in Diabetes 2016, [place] Diabetes Association. Diabetes Care. 2016.39(Suppl 1). Performed By: #### 2 4323-8, [id number], #### [facility] CLIA [id number] [address] [place] [address] [place] Potassium [Moles/Vol] 3.1 mmol/L Low 3.7-5.1 [facility] Comment on above: Order Comment: Speci men Type: BLOOD SPECIMEN Ordering Facility: [facility] Address: [address] [address] Performed By: #### 2 4323-8, [id number], #### [facility] CLIA [id number] [address] [place] [address] [place] Protein [Mass/Vol] 8.5 g/dL High 6.3-8.0 [facility] Comment on above: Order Comment: Speci men Type: BLOOD SPECIMEN Ordering Facility: [facility] Address: [address] [address] Performed By: #### 2 4323-8, [id number], #### [facility] CLIA [id number] [address] [place] [address] [place] Sodium [Moles/Vol] 140 mmol/L Normal 136-144 [facility] Comment on above: Order Comment: Speci men Type: BLOOD SPECIMEN Ordering Facility: [facility] Address: [address] [id number] Performed By: #### 2 4323-8, [id number], 54583-0 #### [facility] CLIA [id number] [address] [place] [address] Urea nitrogen [Mass/Vol] 23 mg/dL High 7-21 [facility] Comment on above: Order Comment: Speci men Type: BLOOD SPECIMEN Ordering Facility: [facility] Address: [address] Performed By: #### 2 4323-8, [id number], 46995-9 #### [facility] CLIA [id number] [address] [place] [address] OF [facility] [id number] 06-21-2022 ECG01 Ventricular Rate : 8 6 BPM Atrial Rate : 85 BPM P-R Interval : 147 ms QRS Duration : 96 ms Q-T Interval : 397 ms QTC Calculation(Bazett) : 475 ms Calculated P [place]eter : 44 degrees Calculated R [place] : 77 degrees Calculated T [place]eter : 50 degrees Sinus rhythm Normal ECG no stemi Confirmed by MD CUI JEFFREY ([id number]), editorial director DIVYA IRWIN ([id number]) on 06/21/2022 4:28:31 PM NAME : NIDA FRANCIS PID : [id number] : 1980 Gender : Female Race : ORD : Procedure Date : Jun 21 2022 09:09:53 Edit Date : Jun 21 2022 16:28:32 Diagnosis: Sinus rhythm Normal ECG no stemi Confirmed by MD CUI JEFFREY ([id number]), editorial director DIVYA IRWIN (1942) on 06/21/2022 4:28:31 PM Test Reason : Location : 524 : [facility] [id number] Overread By : MD CUI JEFFREY Edited By : DIVYA IRWIN Referred By : , Acquired by : , Hermelindo [facility] ED NOTEon 06-21-2022 ED NOTE HNO ID: [id number] Author: Jeannette Resendez RN Service: Nursing Author Type: Registered Nurse Type: ED Notes Filed: 06/21/2022 2:57 PM Note Text: Unable to provide stool sample. Did have bm in pants, wants to go home, Declined d/c vitals. Discharge instructions and follow up care discussed with patient. Medications reviewed. Patient verbalized understanding. Pt left with all belongings. Pt left ER with steady gait and in stable condition. Normal [facility] ED NOTE HNO ID: [id number] Author: Jeannette Resendez RN Service: Nursing Author Type: Registered Nurse Type: ED Notes Filed: 06/21/2022 9:16 AM Note Text: Pt A+Ox3, able to make needs known and ambulate to room by self. Pt states, I have been throwing up and having chest pain for 3 days, the chest pain is 10/10 this morning. Plan of care -Monitor Patient's Vital Signs for changes in condition -Monitor patient for changes in pain -Maintain patient safety and privacy -Provide comfort measures -Call light in place Siderails up, bed in locked and low position Normal [facility] ED PROV NOTEon 06-21-2022 ED PROV NOTE HNO ID: [id number] Author: Jaret Cui MD Service: Emergency Medicine Author Type: Physician Type: ED Provider Notes Filed: 06/21/2022 3:12 PM Note Text: ED Provider Note Patient Name: Nida Francis : 1980 SERVICE DATE: 06/21/22 History Patient presents with: Chest Pain Abdominal Pain Nausea AND Vomiting HPI 41-year-old female past medical history of bipolar disease, vasculitis presents today with anxiety, chest pain and abdominal pain, nausea vomiting. Patient reports 3 days of anxiety which is caused her some chest pain and associated emesis. Has had this before. Admits to smoking daily marijuana. States has been previously evaluated for cannabinoid hyperemesis syndrome with unclear diagnosis. No fevers no chills. No dysuria or hematuria. PAST MEDICAL HISTORY Diagnosis Date - Asthma - History of vasculitis - Pneumonia - Psychiatric disorder anxiety, bi-polar - Restless leg syndrome - Stroke (HCC) 11/2015 PAST SURGICAL HISTORY Procedure Laterality Date - DENTAL SURGERY HX wisdom teeth - LAPAROSCOPY SURG CHOLECYSTECTOMY 08/24/2017 - MIDLINE INSERTION/CONSULT 08/21/2016 - ORTHOPEDICS SURGERY HX right foot - PICC LINE INSERT/CONSULT 12/19/2015 FAMILY HISTORY Problem Relation Age of Onset - Hypertension Mother - Depression Mother - Hypertension Father - Depression Father - other (crohns) Maternal Grandmother - Cancer Paternal Grandfather - Breast Cancer Other 50 Social History Tobacco Use - Smoking status: Every Day Packs/day: 1.00 Years: 13.00 Pack years: 13.00 Types: Cigarettes - Smokeless tobacco: Never Vaping Use - Vaping Use: Never used Substance and Sexual Activity - Alcohol use: No - Drug use: Yes Types: Marijuana Comment: weekly - Sexual activity: Yes Partners: Female ALLERGIES Allergen Reactions - Lurasidone Rash - Bees Swelling Site swelling only per patient - Tomato GI Upset Review of Systems HENT: Negative. Eyes: Negative. Respiratory: Negative for shortness of breath. Cardiovascular: Positive for chest pain. Negative for palpitations and leg swelling. Gastrointestinal: Positive for abdominal pain, nausea and vomiting. Endocrine: Negative. Genitourinary: Negative. Musculoskeletal: Negative. Skin: Negative. Allergic/Immunologic: Negative. Neurological: Negative. Hematological: Negative. Psychiatric/Behaviora l: Negative. Negative for behavioral problems. Physical Exam Vitals [06/21/22 0910] BP Pulse Temp Temp src Resp SpO2 Weight Height 160/80 84 36.9 ?C (98.5 ?F) Temporal 20 95 % 96.2 kg (212 lb) -- Physical Exam Constitutional: General: She is not in acute distress. Appearance: She is well-developed. She is not diaphoretic. HENT: Head: Normocephalic and atraumatic. Mouth/Throat: Mouth: Mucous membranes are moist. Eyes: Pupils: Pupils are equal, round, and reactive to light. Cardiovascular: Rate and Rhythm: Normal rate. Heart sounds: Normal heart sounds. Pulmonary: Effort: No respiratory distress. Breath sounds: No decreased breath sounds, wheezing or rhonchi. Abdominal: General: There is no distension. Tenderness: There is no abdominal tenderness. Musculoskeletal: General: Normal range of motion. Cervical back: Normal range of motion and neck supple. Skin: General: Skin is warm. Neurological: Mental Status: She is alert and oriented to person, place, and time. Cranial Nerves: No cranial nerve deficit. Psychiatric: Behavior: Behavior normal. Thought Content: Thought content normal. Diagnostic Testing ED Labs Ordered and Reviewed UA DIP,URINE (ED-POC) - Abnormal; Notable for the following components: Result Value Ref Range BILIRUBIN UA (POCT) Moderate (*) Negative KETONE UA (POCT) 15 (*) Negative mg/dL HEMOGLOBIN/BLOOD UA (POCT) Moderate (*) Negative PROTEIN UA (POCT) 100 (*) Negative mg/dL All other components within normal limits UA DIP,URINE (ED-POC) UA DIP,URINE HCG(ED-POC) COMP METABOLIC PANEL MAGNESIUM BLD CBC + DIFF HIGH SENSITIVITY TROPONIN T (INITIAL) Procedures ED Course / Clinical Impression Clinical Impressions as of 06/21/22 1457 Nausea and vomiting, unspecified vomiting type Diarrhea, unspecified type MDM / Disposition / Plan Some initial concern for cannabinoid hyperemesis syndrome. Will administer 0.625 mg droperidol. QTc is normal at 475 No significant risk factors for C. Difficile, could not provide sample here in ED. Suspect viral gastroenteritis. Will DC with prescription for Lomotil, advised to follow-up with PCP. Differential Diagnoses Leading - viral GI infection / concern for norovirus Management Re-evaluation patient tolerating PO, patient ambulatory with stable gait, clinically improved and feeling better and vital signs in acceptable range Additional Tests or Interventions Additional tests/procedures: ECG and IV fluids EKG INTERPRETATION: (more content not included)... Normal [facility] HIGH SENSITIVITY TROPONIN T (INITIAL)on 06-21-2022 HIGH SENSITIVITY CORKY 8 ng/L Normal <12 [facility] Comment on above: Order Comment: Speci men Type: BLOOD SPECIMEN Ordering Facility: [facility] Address: [address] [place], [place] [phone] Result Comment: When assessing risk for acute coronary syndromes: In patients undergoing blood draw greater than or equal to 2 hours from symptom onset, with history of very low to moderate risk and non-ischemic ECG, an initial hs-Troponin T less than 12 ng/L AND a 1 hour delta hs-Troponin T less than 3 ng/L should be considered very low risk for 30 day MACE. Performed By: #### 2 4323-8, [id number], 08628-8 #### [facility] CLIA [id number] [address] [place] [address] OF [place] HIGH SENSITIVITY TROPONIN T (SECOND)on 06-21-2022 HIGH SENSITIVITY CORKY 7 ng/L Normal <12 [facility] Comment on above: Order Comment: Davina cabrales Type: BLOOD SPECIMEN Ordering Facility: [facility] Address: [facility] [place] [address] Result Comment: When assessing risk for acute coronary syndromes: In patients undergoing blood draw greater than or equal to 2 hours from symptom onset, with history of very low to moderate risk and non-ischemic ECG, an initial hs-Troponin T less than 12 ng/L AND a 1 hour delta hs-Troponin T less than 3 ng/L should be considered very low risk for 30 day MACE. Performed By: #### 2 4323-8, [id number], #### [facility] CLIA [id number] [address] [place] [address] OF [place] Magnesium SerPl-mCncon 06-21 Magnesium [Mass/Vol] 2.3 mg/dL Normal 1.7-2.3 [facility] Comment on above: Order Comment: Davina cabrales Type: BLOOD SPECIMEN Ordering Facility: [facility] Address: [place] [address] Performed By: #### 2 4323-8, [id number], #### [facility] CLIA [id number] [address] [place] [address] [place] XR CHEST 1V FRONTAL PORTon 0 06-21-2022 XR CHEST 1V FRONTAL PORT * * *Final Report* * * DATE OF EXAM: Jun 21 2022 9:46AM LFX 5376 - XR CHEST 1V FRONTAL PORT / PROCEDURE REASON: Chest pain, nonspecific * * * * Physician Interpretation * * * * EXAMINATION: CHEST RADIOGRAPH (PORTABLE SINGLE VIEW AP) Exam Date/Time: 06/21/2022 9:46 AM CLINICAL HISTORY: Chest pain, nonspecific MQ: XCPR_5 Comparison: Chest x-ray on 07/07/2019 RESULT: Lines, tubes, and devices: None. Lungs and pleura: The visualized bilateral lungs are clear of consolidations. No mass lesions seen. No large pleural effusions or pneumothorax. Cardiomediastinal silhouette: Stable cardiomediastinal silhouette. Other: Sclerotic foci in the right humeral head unchanged. IMPRESSION: No acute findings. Agency Recruiter: DANIEL Transcribe Date/Time: Jun 21 2022 9:57A Dictated by : MARIBEL SOLIS MD This examination was interpreted and the report reviewed and electronically signed by: MARIBEL SOLIS MD on Jun 21 2022 9:59AM EST [id number] Normal [facility] CNCOon 01-15-2022 CNCO HNO ID: [id number] Author: Mammography Coordinator Service: ? Author Type: Physician Type: Letter Filed: 01/18/2022 11:34 PM Note Text: January 15, 2022 PID: [id number] Nida Francis [address] [place], [place] [id number] Dear Ms. Francis, We are pleased to inform you that the results of your recent breast imaging exam on 01/15/2022 are normal. Early detection of cancer is very important. We also understand recommendations regarding breast cancer screening are controversial. Please discuss with your primary care provider which strategy is best for you and whether a mammogram is right for you. Your imaging studies and report will be kept on file at [facility] as part of your permanent medical record and are available for your continuing care. Thank you for allowing us to help in meeting your health care needs. Sincerely, Dr. Lopez Interpreting Radiologist [facility] (Normal over 40) Normal [facility] SCREENINGon 01-15-2022 [facility] SCREENING * * *Final Report* * * DATE OF EXAM: Jan 15 2022 8:08AM [facility] 0581 - [facility] SCREENING / PROCEDURE REASON: Encounter for screening for malignant neoplasm of breast, unspecified screening * * * * Physician Interpretation * * * * RESULT: #[id number] - [facility] SCREENING BILATERAL DIGITAL SCREENING MAMMOGRAM WITH CAD: 01/15/2022 HISTORY: Encounter For Screening For Malignant Neoplasm Of Breast, Unspecified Screening /Screening Mammogram - patient reports NO breast symptoms /baseline mammogram. RESULT: TECHNIQUE: The study was acquired using full field digital technology and interpreted from soft copy. Current study was also evaluated with a Computer Aided Detection (CAD). No prior exams were available for comparison. There are scattered fibroglandular elements in both breasts. No significant masses, calcifications, or other findings are seen in either breast. IMPRESSION: NEGATIVE There is no mammographic evidence of malignancy. A 1 year screening mammogram is recommended. Pebbles wright/jen:01/15/2022 08:17:20 Manager Pulmonary(s): RT Estrellita(R)(M), [facility] letter sent: Normal over 40 Mammogram BI-RADS: 1 Negative Multiple national specialty organizations have released breast cancer screening guidelines for women at average risk for developing breast cancer - guidelines that are based on both evidence and opinion, yet differ on when to start and how often to screen for breast cancer. With representation from Breast Imaging, Internal Medicine, Women's Health, Family Medicine, and Medical/Surgical Oncology, the [facility] has carefully reviewed the data and reached the following consensus: 1) All women should engage in shared decision-making with their providers to decide when to start and how often to screen; 2) All women should have the opportunity to start screening mammography at age 40; 3) For women ages 45-55, we recommend annual screening mammograms; 4) For women ages 55 and over, we support both the transition from an annual to a biennial interval if this aligns more with patient's values and preferences, or continuation with annual screening; 5) All women should discuss with their providers when to stop screening mammograms. Agency Recruiter: Jen Transcribe Date/Time: Jan 15 2022 7:55A Dictated by: PEBBLES LOPEZ MD This examination was interpreted and the report reviewed and electronically signed by: PEBBLES LOPEZ MD on Jan 15 2022 8:17AM EST [id number] Normal [facility] C URINEon 07-26-2021 C URINE [facility] Dept of Laboratory Services [address] [place] [address] Name: NIDA FRANCIS : 1980 Admitting Provider: Gender: Female [facility] [id number] Number: Location: [facility]; CC03; 1 Admit 07/25/2021 Date: Discharge Date: Microbiology PROCEDURE: C URINE SOURCE: CLEAN CATCH BODY SITE: COLLECTED DATE/TIME: 07/25/2021 10:14 EDT RECEIVED DATE/TIME: 07/25/2021 14:38 EDT START DATE/TIME: 07/25/2021 14:39 EDT FREE TEXT SOURCE: ORDERING PHYSICIAN: MORIAH FARIAS DO FINAL REPORTS Final Report [] Verified Date/Time: 07/26/2021 10:21 EDT No significant growth. L=Low, H= High, *= Abnormal, C=Critical, f=Footnote, c=Corrected, i=Interp Data Name: NIDA FRANCIS Print Date/ 07/26/2021 10:21 EDT Time: Normal [facility] Comment on above: Performed By: #### 1 [id number] ####[facility] [id number] [place] [address] Medical Director: Khoi Kong MD ED Physician Reporton 2021 ED Physician Report Patient: NIDA FRANCIS [facility]: [phone] Age: 40 years Sex: Female : 1980 Associated Diagnoses: Acute vomiting; Cyclical vomiting Author: MORIAH FARIAS DO Basic Information Time seen: Time Seen: MORIAH FARIAS DO / 07/25/2021 09:27 . History source: Patient. Arrival mode: Private vehicle. History limitation: None. History of Present Illness Patient is a 40-year-old female who presents emergency department for nausea and vomiting. Patient states that her symptoms began about a week ago. They have been coming and going during that time. When asked if there is a triggering factor, she states stress. 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 She tells me that she has been diagnosed with cyclic vomiting syndrome in the past and has had frequent episodes like this previously. She states that she does use marijuana and her last use was last night. No fever. She complains of generalized abdominal cramping. No diarrhea. No further concerns at this time. Review of Systems Constitutional symptoms: Negative except as documented in HPI. Skin symptoms: Negative except as documented in HPI. Eye symptoms: Negative except as documented in HPI. ENMT symptoms: Negative except as documented in HPI. Respiratory symptoms: Negative except as documented in HPI. Cardiovascular symptoms: Negative except as documented in HPI. Gastrointestinal symptoms: Negative except as documented in HPI. Genitourinary symptoms: Negative except as documented in HPI. Musculoskeletal symptoms: Negative except as documented in HPI. Psychiatric symptoms: Negative except as documented in HPI. Endocrine symptoms: Negative except as documented in HPI. Hematologic/Lymphatic symptoms: Negative except as documented in HPI. Allergy/immunologic symptoms: Negative except as documented in HPI. Neurologic symptoms Negative except as documented in HPI. Additional review of systems information: All other systems reviewed and otherwise negative. Health Status Allergies: Allergic Reactions (Selected) No Known Allergies. Medications: (Selected) Prescriptions Prescribed BMP: See Instructions, please get in 1 week Dx: hypokalemia Results to primary care physician, 1 EA, 0 Refill(s) Zofran 4 mg oral tablet: 4 mg = 1 tabs, ORAL, [id number], PRN: as needed for nausea/vomiting, 20 tabs, 0 Refill(s) Documented Medications Documented Ativan 1 mg oral tablet: 1 mg = 1 tabs, ORAL, QHS, PRN: for anxiety, 0 Refill(s) CellCept 500 mg oral tablet: 1,500 mg = 3 tabs, ORAL, BID, 180 tabs, 0 Refill(s) LaMICtal 100 mg oral tablet: 200 mg = 2 tabs, ORAL, DAILY, 60 tabs, 0 Refill(s) Lipitor 80 mg oral tablet: 80 mg = 1 tabs, ORAL, DAILY, 30 tabs, 0 Refill(s) Neurontin 100 mg oral capsule: 200 mg = 2 caps, ORAL, BID, 0 Refill(s) Rose Bud 5 mg-325 mg oral tablet: 1 tabs, ORAL, BID, PRN: as needed for pain, 0 Refill(s) Norvasc 5 mg oral tablet: 5 mg = 1 tabs, ORAL, DAILY, 30 tabs, 0 Refill(s) Protonix 40 mg oral delayed release tablet: 40 mg = 1 tabs, ORAL, DAILY, 30 tabs, 0 Refill(s) Requip 0.25 mg oral tablet: 0.25 mg = 1 tabs, ORAL, QHS, PRN: None Specified, 90 tabs, 0 Refill(s) Toprol-XL 50 mg oral tablet, extended release: 50 mg = 1 tabs, ORAL, DAILY, 30 tabs, 0 Refill(s) Vitamin D2 50,000 intl units (1.25 mg) oral capsule: 50,000 intl_unit = 1 caps, ORAL, TUESDAY, 0 Refill(s), per nurse's notes. Immunizations: Per nurse's notes. Past Medical/ Family/ Social History Medical history: No active or resolved past medical history items have been selected or recorded., Reviewed as documented in chart. Surgical history: cholecystectomy.. Family history: Reviewed as documented in chart. Social history: Reviewed as documented in chart. Problem list: Active Problems (5) At risk for falls CVA (cerebral vascular accident) Cyclic vomiting syndrome HTN (hypertension) Hyperlipidemia . Physical Examination Vital Signs Per nurse's notes. General: Alert, mild distress. Skin: Warm, dry, no rash. Head: Normocephalic, atraumatic. Neck: Supple, trachea midline. Eye: Pupils are equal, round and reactive to light, extraocular movements are intact. Ears, nose, mouth and throat: dry mucous membranes. Cardiovascular: Regular rate and rhythm, Normal peripheral perfusion, No edema. Respiratory: Lungs are clear to auscultation, respirations are non-labored, breath sounds are equal. Gastrointestinal: Soft, Non distended, Normal bowel sounds, Tenderness: Mild, generalized, Guarding: Negative, Rebound: Negative. Back: Normal range of motion, Normal alignment. Musculoskeletal: Normal ROM, normal strength, no deformity. Wan coma scale Total score: Total score: 15. Neurological Alert and oriented to person, place, time, and situation, No focal neurological deficit observed, CN II-XII intact, normal sensory ob (more content not included)... Normal [facility] AMYon 07-25-2021 Amylase [Catalytic activity/Vol] 402 U/L Critically abnormal 25-115 [facility] Comment on above: Result Comment: Crit ical Result(s) called at: 11:19:58 on 07/25/2021 by: RADHA Quiñonez to: MAYELIN Performed By: #### 1 58949, 192065, 475164, 775043, [id number] #### [facility] [address] [place] [address] Terrazzo Worker: Khoi Kong MD AUTO DIFFon 07-25-2021 Baso Count 0.08 x1000 Normal 0.00-0.20 [facility] Comment on above: Performed By: #### 1 60938, 792448, 075470, 251305, 2329148 #### [facility] [address] [place], [place] [id number] Terrazzo Worker: Khoi Kong MD Basos % 0.8 % Normal [facility] Comment on above: Performed By: #### 1 82271, 624422, 471689, 056625, 6010435 #### [facility] [address] [place] [address] Terrazzo Worker: Khoi Kong MD Eos Count 0.02 x1000 Normal 0.00-0.50 [facility] Comment on above: Performed By: #### 1 74804, 161277, 562451, 067381, 1897286 #### [facility] [address] [place] [address] Terrazzo Worker: Khoi Kong MD Eosinophils/100 WBC (Bld) 0.2 % Normal [facility] Comment on above: Performed By: #### 1 75315, 674844, 903424, 449566, 4644826 #### [facility] [address] [place] [address] Terrazzo Worker: Khoi Kong MD Lymph Count 1.52 x1000 Normal 1.20-4.80 [facility] Comment on above: Performed By: #### 1 61941, 746017, 757042, 139163, 9204142 #### [facility] [address] [place] [address]65 Terrazzo Worker: Khoi Kong MD Lymphocytes/100 WBC (Bld) 15.7 % Normal [facility] Comment on above: Performed By: #### 1 53417, 730898, 020406, 451489, 4950580 #### [facility] [address] [place] [address] Terrazzo Worker: Khio Kong MD Ellsworth Count 0.25 x1000 Normal 0.10-1.00 [facility] Comment on above: Performed By: #### 1 67977, 446848, 110566, 294555, 7274034 #### [facility] [address] [place] [address] Terrazzo Worker: Khoi Kong MD Monocytes/100 WBC (Bld) 2.6 % Normal [facility] Comment on above: Performed By: #### 1 45702, 027986, 949834, 091712, 2146563 #### [facility] [address] [place] [address] Terrazzo Worker: Khoi Kong MD Neutrophil Count (ANC) 7.81 x1000 Normal 1.40-8.80 So [facility] Comment on above: Performed By: #### 1 60885, 259307, 124093, 996429, 4806901 #### [facility] [address] [place] [address] Terrazzo Worker: Khoi Kong MD Neutrophils/100 WBC (Bld) 80.7 % Normal [facility] Comment on above: Performed By: #### 1 45004, 620336, 393976, 408388, 8748269 #### [facility] [address] [place] [address] Terrazzo Worker: Khoi Kong MD COMPMETAon 07-25-2021 Albumin/Globulin [Mass ratio] 1.2 {ratio} Normal [facility] Comment on above: Performed By: #### 1 20887, 793977, 605775, 470562, 6597654 #### [facility] [address] [place] [address] Terrazzo Worker: Khoi Kong MD GFR AA >60 Normal [facility] Comment on above: Result Comment: Afri can Polish GFR Calc Medical judgement is necessary to interpret GFR. The calculated GFR may not accurately reflect renal status in patients >70 years, women, acutely ill hospitalized patients and patients with acute renal failure or known renal disease. The MDRD GFR formula is valid only for adults greater than 18 years of age. Note: Creatinine clearance (not GFR) should be used for drug dosing. Performed By: #### 1 48805, 489697, 460832, 873706, 6139523 #### [facility] [address] [place] [address] Terrazzo Worker: Khoi Kong MD Glomerular Filtration Rate >60 Normal [facility] Comment on above: Result Comment: Non GFR Calc Medical judgement is necessary to interpret GFR. The calculated GFR may not accurately reflect renal status in patients >70 years, women, acutely ill hospitalized patients and patients with acute renal failure or known renal disease. The MDRD GFR formula is valid only for adults greater than 18 years of age. Note: Creatinine clearance (not GFR) should be used for drug dosing. Performed By: #### 1 80706, 180534, 628529, 911815, 0350794 #### [facility] [address] [place] [address]44 Terrazzo Worker: Khoi Kong MD Osmolality [Osmolality] 282 mosm/kg Normal 275-295 [facility] Comment on above: Performed By: #### 1 10783, 536698, 681214, 073121, 6727741 #### [facility] [address] [place] [address] 85291 Terrazzo Worker: Khoi Kong MD Urea nitrogen/Creatinine [Mass ratio] 12.4 mg/mg Normal [facility] Comment on above: Performed By: #### 1 20125, 420674, 778603, 372407, 5991514 #### [facility] [address] [place] [address]297 Terrazzo Worker: Khoi Kong MD Albumin [Mass/Vol] 3.9 g/dL Normal 3.4-5.0 [facility] Comment on above: Performed By: #### 1 28217, 880713, 129867, 742250, 0545163 #### [facility] [address] [place] [address] 42800 Terrazzo Worker: Khoi Kong MD Alk Phos 72 unit/L Normal 45-117 [facility] Comment on above: Performed By: #### 1 35483, 074155, 158702, 824878, 6491440 #### [facility] [address] [place], [place] [address] Terrazzo Worker: Khoi Kong MD Bilirubin [Mass/Vol] 0.45 mg/dL Normal 0.20-1.00 [facility] Comment on above: Result Comment: Use of this assay is not recommended for patients undergoing treatment with eltrombopag due to the potential for falsely elevated results. Performed By: #### 1 33403, 667623, 269290, 352700, 5452899 #### [facility] [address] [place], [place] [address] Terrazzo Worker: Khoi Kong MD Calcium [Mass/Vol] 9.3 mg/dL Normal 8.5-10.5 [facility] Comment on above: Performed By: #### 1 23172, 308409, 537170, 256806, 1839806 #### [facility] [address] [place] [address]117 Terrazzo Worker: Khoi Kong MD Chloride [Moles/Vol] 109 mmol/L Normal 100-109 [facility] Comment on above: Performed By: #### 1 42915, 152132, 514188, 573331, 6860388 #### [facility] [address] [place] [address] Terrazzo Worker: Khoi Kong MD CO2 [Moles/Vol] 23.9 mmol/L Normal 21.0-32.0 [facility] Comment on above: Performed By: #### 1 59839, 255248, 684907, 660593, 5563862 #### [facility] [address] [place] [address] 16616 Terrazzo Worker: Khoi Kong MD Creatinine [Mass/Vol] 1.0 mg/dL Normal 0.6-1.0 [facility] Comment on above: Performed By: #### 1 81312, 571841, 720084, 934085, 3847611 #### [facility] [address] [place] [address] 32743 Terrazzo Worker: Khoi Kong MD Globulin (S) [Mass/Vol] 3.2 g/dL Normal [facility] Comment on above: Performed By: #### 1 20147, 970751, 229870, 616668, 4951887 #### [facility] [address] [place] [address]4525 Terrazzo Worker: Khoi Kong MD Glucose [Mass/Vol] 115 mg/dL High 72-100 [facility] Comment on above: Result Comment: Carmencita puncture should occur prior to sulfasalazine administration due to the potential for falsely depressed results. Venipuncture should occur prior to sulfapyridine administration due to the potential falsely elevated results. Baseline assay values before administration of sulfasalazine and sulfapyridine therapy would not be affected. Performed By: #### 1 34012, 470770, 074809, 697310, 6754808 #### [facility] [address] [place] [address] 07119 Terrazzo Worker: Khoi Kong MD GOT 11 unit/L Low 15-37 [facility] Comment on above: Result Comment: Carmencita puncture should occur prior to sulfasalazine and/or sulfapyridine administration due to the potential for falsely depressed results. Baseline assay values before administration of sulfasalazine and sulfapyridine therapy would not be affected. Performed By: #### 1 25628, 534526, 602112, 655356, 3516443 #### [facility] [address] [place] [address] 47777 Terrazzo Worker: Khoi Kong MD GPT 27 unit/L Normal 13-56 [facility] Comment on above: Result Comment: Carmencita puncture should occur prior to sulfasalazine and/or sulfapyridine administration due to the potential for falsely depressed results. Baseline assay values before administration of sulfasalazine and sulfapyridine therapy would not be affected. Performed By: #### 1 37303, 810681, 537527, 694746, 6978456 #### [facility] [address] [place] [address] 30776 Terrazzo Worker: Khoi Kong MD Potassium [Moles/Vol] 3.4 mmol/L Low 3.5-5.1 [facility] Comment on above: Performed By: #### 1 12985, 225390, 006926, 038347, 4165009 #### [facility] [address] [place] [address] 16344 Terrazzo Worker: Khoi Kong MD Protein [Mass/Vol] 7.1 g/dL Normal 6.0-8.5 [facility] Comment on above: Performed By: #### 1 05801, 928579, 970380, 434805, 2383008 #### [facility] [address] [place] [address] 08047 Terrazzo Worker: Khoi Kong MD Sodium [Moles/Vol] 141 mmol/L Normal 135-145 [facility] Comment on above: Performed By: #### 1 29461, 680171, 619028, 804271, 2664444 #### [facility] [address] [place] [address] 30342 Terrazzo Worker: Khoi Kong MD Urea nitrogen [Mass/Vol] 12 mg/dL Normal 10-20 [facility] Comment on above: Performed By: #### 1 09315, 608738, 103022, 088947, 8238870 #### [facility] [address] [place] [id number] Terrazzo Worker: Khoi Kong MD ED Discharge Educationon ED Discharge Education Gastrointestinal Nausea and Vomiting: Care Instructions Your Care Instructions When you are nauseated, you may feel weak and sweaty and notice a lot of saliva in your mouth. Nausea often leads to vomiting. Most of the time you do not need to worry about nausea and vomiting, but they can be signs of other illnesses. Two common causes of nausea and vomiting are stomach flu and food poisoning. Nausea and vomiting from viral stomach flu will usually start to improve within 24 hours. Nausea and vomiting from food poisoning may last from 12 to 48 hours. The doctor has checked you carefully, but problems can develop later. If you notice any problems or new symptoms, get medical treatment right away. Follow-up care is a garcia part of your treatment and safety. Be sure to make and go to all appointments, and call your doctor if you are having problems. It's also a good idea to know your test results and keep a list of the medicines you take. How can you care for yourself at home? ? To prevent dehydration, drink plenty of fluids, enough so that your urine is light yellow or clear like water. Choose water and other caffeine-free clear liquids until you feel better. If you have kidney, heart, or liver disease and have to limit fluids, talk with your doctor before you increase the amount of fluids you drink. ? Rest in bed until you feel better. ? When you are able to eat, try clear soups, mild foods, and liquids until all symptoms are gone for 12 to 48 hours. Other good choices include dry toast, crackers, cooked cereal, and gelatin dessert, such as Jell-O. When should you call for help? Call 911 anytime you think you may need emergency care. For example, call if: ? You passed out (lost consciousness). Call your doctor now or seek immediate medical care if: ? You have symptoms of dehydration, such as: ? Dry eyes and a dry mouth. ? Passing only a little dark urine. ? Feeling thirstier than usual. ? You have new or worsening belly pain. ? You have a new or higher fever. ? You vomit blood or what looks like coffee grounds. Watch closely for changes in your health, and be sure to contact your doctor if: ? You have ongoing nausea and vomiting. ? Your vomiting is getting worse. ? Your vomiting lasts longer than 2 days. ? You are not getting better as expected. Where can you learn more? Go to https://www.Lala/patientEd Enter H591 in the search box to learn more about Nausea and Vomiting: Care Instructions. Current as of: June 20, 2019 Content Version: 12.7 ? [employer]. Care instructions adapted under license by your healthcare professional. If you have questions about a medical condition or this instruction, always ask your healthcare professional. [employer] disclaims any warranty or liability for your use of this information. Learning About Cyclic Vomiting Syndrome What is it? An adult or child who has cyclic vomiting syndrome (CVS) has repeated bouts of severe vomiting and nausea. Between the vomiting episodes, the person's health is normal. The cause of CVS isn't known, but it may be related to migraine headaches. What happens when you have CVS? CVS causes severe nausea, vomiting, and drooling. You may not be able to walk or talk during an episode. You may look pale. You may have a fever and feel very tired and thirsty. Some people with CVS have belly pain and diarrhea. Bouts of vomiting can last for a few hours or a few days. People with this condition tend to have a typical pattern of attacks. For example, one person may have bouts of CVS 4 times a year and always in the morning. Another person may have 8 bouts a year and always in the evening. Some people with CVS have triggers that set off the vomiting. People have reported an infection, such as a cold, as a trigger. Other triggers include stress, menstrual cycles, and certain foods like chocolate or cheese. Children tend to have more triggers than adults do. How is CVS treated? Treatment is centered around easing the nausea and vomiting. The doctor may prescribe medicine. During very bad bouts of vomiting, your doctor may want you to stay in the hospital for a while. You may get fluids through a vein (IV) to prevent dehydration. Dehydration can be serious. Your body needs fluids to make enough blood. Without a good supply of blood, vital organs such as the heart and brain can't work as well as they should. When should you call for help? Call your doctor now or seek immediate medical care if: ? You have new or worse belly pain. ? You have a fever. ? You are vomiting. ? You cannot pass stools or gas. ? You have symptoms of dehydration, such as: ? Dry eyes and a dry mouth. ? Passing only a little urine. ? Feeling thirstier than usual. Watch closely for changes in your health, and be sure to contact your doctor if you have any problems. Follow-up care is a garcia part of your treatment and safety. Be sure to make and go (more content not included)... 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 You are very important to us. Our goal is to demonstrate our high quality medical care, and provide you with a very good patient experience.\.br\\.br\ You may receive a survey about our service. Please take the time to complete the survey and return it so we can continue to enhance our service.\.br\\.br\Beau nk you again for allowing the [facility] Emergency Department to care for your medical needs. If you have questions about your care or follow up information please contact us at [phone].\.br\\.b r\ Follow-Up Instructions\.br\____ _\.br\NIDA FRANCIS has been given these follow-up instructions:\.br\\.b r\\.br\With: Address: When: \.br\IVAN [facility], Gastroenterology [address] [facility], [facility] [address] [place] [address]\.br\ Business (1) Within 1 to 2 days \.br\\.br\\.br\With: Address: When: \.br\Please seek immediate medical attention if you develop abdominal pain, fever, persistent vomiting, or you have any new concerns. Within n/a \.br\\.br\\.br\With: Address: When: \.br\FELECIA ELY DR NOT ON STAFF [address] [facility], [address] [address]\.br\[id number] Business (1) Within 1 to 2 days \.br\\.br\\.br\\.br\\ .br\Patient Education Materials\.br\ \. br\NIDA FRANCIS has been given the following patient education materials:\.br\\.br\N ausea and Vomiting: Care Instructions\.br\Your Care Instructions\.br\\.br \When you are nauseated, you may feel weak and sweaty and notice a lot of saliva in your mouth. Nausea often leads to vomiting. Most of the time you do not need to worry about nausea and vomiting, but they can be signs of other illnesses.\.br\Two common causes of nausea and vomiting are stomach flu and food poisoning. Nausea and vomiting from viral stomach flu will usually start to improve within 24 hours. Nausea and vomiting from food poisoning may last from 12 to 48 hours.\.br\The doctor has checked you carefully, but problems can develop later. If you notice any problems or new symptoms, get medical treatment right away.\.br\Follow-up care is a garcia part of your treatment and safety. Be sure to make and go to all appointments, and call your doctor if you are having problems. It's also a good idea to know your test results and keep a list of the medicines you take.\.br\How can you care for yourself at home?\.br\? To prevent dehydration, drink plenty of fluids, enough so that your urine is light yellow or clear like water. Choose water and other caffeine-free clear liquids until you feel better. If you have kidney, heart, or liver disease and have to limit fluids, talk with your doctor before you increase the amount of fluids you drink.\.br\? Rest in bed until you feel better.\.br\? When you are able to eat, try clear soups, mild foods, and liquids until all symptoms are gone for 12 to 48 hours. Other good choices include dry toast, crackers, cooked cereal, and gelatin dessert, such as Jell-O.\.br\When should you call for help?\.br\ Call 911 anytime you think you may need emergency care. For example, call if: \.br\ ? You passed out (lost consciousness). \.br\Call your doctor now or seek immediate medical care if:\.br\ ? You have symptoms of dehydration, such as: \.br\? Dry eyes and a dry mouth.\.br\? Passing only a little dark urine.\.br\? Feeling thirstier than usual. \.br\ ? You have new or worsening belly pain. \.br\ ? You have a new or higher fever. \.br\ ? You vomit blood or what looks like coffee grounds. \.br\Watch closely for changes in your health, and be sure to contact your doctor if:\.br\ ? You have ongoing nausea and vomiting. \.br\ ? Your vomiting is getting worse. \.br\ ? Your vomiting lasts longer than 2 days. \.br\ ? You are not getting better as expected. \.br\Where can you learn more?\.br\Go to [email or web address]/patientEd\.br\E nter H591 in the search box to learn more about Nausea and Vomiting: Care Instructions.\.br\Cur rent as of: June 20, 2019 Content Version: 12.7\.br\? [employer]. \.br\Care instructions adapted under lic (more content not included)... Normal [facility] ED Progress Noteon 2 ED Progress Note 0920-40YR OLD PT FRO M HOME ACCOMPANIED BY WITH C/O VOMITING. PT IS A CHRONIC MARIJUANA USER WITH HX FROM CYCLICAL VOMITING. PT STATES SHE WAS AT PSYCHIATRIC ED ON TUESDAY. PT STATES SHE SMOKED MARIJUANA YESTERDAY. CALL DECATUR WITHIN REACH, SIDE RAILS UP 1035-IV FLUIDS INITIATED. PT MEDICATED WITH PROTONIX AND HALDOL. 1122-CRITICAL AMYLASE [address] FARIAS 1612-IV DISCONTINUED. PT DISCHARGED HOME IN STABLE CONDITION. PT PROVIDED WITH DISCHARGE PAPERWORK AND RX FOR ZOFRAN. PT ADVISED TO FOLLOW UP WITH GI. PT VERBALIZED UNDERSTANDING WITH ALL FOLLOW UP QUESTIONS ANSWERED. Normal [facility] HEMOon 07-25-2021 DIFF? No Normal [facility] Comment on above: Performed By: #### 1 58366, 967256, 593629, 715463, [id number] #### [facility] [address] [place] [address] Terrazzo Worker: Khoi Kong MD Erythrocyte distribution width (RBC) [Ratio] 14.6 % High 11.5-14.5 [facility] Comment on above: Performed By: #### 1 20164, 278654, 315657, 728200, [id number] #### [facility] [address] [place] [address] Terra[employer] Worker: Khoi Kong MD Hematocrit (Bld) [Volume fraction] 39.7 % Normal 36.0-46.0 [facility] Comment on above: Performed By: #### 1 71612, 093597, 877410, 462905, 5013003 #### [facility] [address] [place] [address] [employer]ra[employer] Worker: Khoi Kong MD Hemoglobin (Bld) [Mass/Vol] 13.8 g/dL Normal 12.0-16.0 [facility] Comment on above: Performed By: #### 1 86285, 054914, 966335, 416053, [id number] #### [facility] [address] [place] [address] Terrazzo Worker: Khoi Kong MD Instr WBC 9.7 Normal [facility] Comment on above: Performed By: #### 1 30326, 663287, 889317, 323626, [id number] #### [facility] [address] [place] [address] Terrazzo Worker: Khoi Kong MD MCH (RBC) [Entitic mass] 30.4 pg Normal 27.0-34.0 [facility] Comment on above: Performed By: #### 1 16196, 723172, 158071, 389523, 0374366 #### [facility] [address] [place] [address] Terrazzo Worker: Khoi Kong MD MCHC (RBC) [Mass/Vol] 34.8 g/dL Normal 32.0-37.0 [facility] Comment on above: Performed By: #### 1 92043, 049473, 517992, 543749, 7053296 #### [facility] [address] [place] [address] Terrazzo Worker: Khoi Kong MD MCV (RBC) [Entitic vol] 87.4 fL Normal 80.0-100.0 [facility] Comment on above: Performed By: #### 1 66063, 336598, 762333, 096537, 1065139 #### [facility] [address] [place] [address] Terrazzo Worker: Khoi Kong MD MDW 20.09 High 13.98-20.00 [facility] Comment on above: Result Comment: MDW Interpretation: ? For adults age 18-89 in ED, MDW >20.0 may be associated with a higher risk of Sepsis during the first 12 hours of hospital admission. ? The predictive value of MDW for identifying Sepsis in patients with hematological abnormalities has not been established. ? Interpret with caution when immature granulocytes, variant lymphs, or blast cells are noted on the differential. ? Confirm patient age is within intended use population (18-89 years) for MDW. ? For ED adults suspected of Sepsis, MDW less than or equal to 20.0 does not rule out Sepsis or the risk of Sepsis. Performed By: #### 1 31287, 022575, 699149, 338783, 8301175 #### [facility] [address] [place] [address] Terrazzo Worker: Khoi Kong MD Nucleated RBC 0 /100WBC Normal [facility] Comment on above: Performed By: #### 1 10288, 649618, 180048, 152050, 3865904 #### [facility] [address] [place] [address] Terrazzo Worker: Khoi Kong MD Platelet 224 x10 Normal 150-450 [facility] Comment on above: Performed By: #### 1 36046, 928528, 790536, 633713, 6888871 #### [facility] [address] [place] [address] Terrazzo Worker: Khoi Kong MD Platelet mean volume (Bld) [Entitic vol] 10.6 fL High 7.4-10.4 [facility] Comment on above: Performed By: #### 1 37835, 868494, 925249, 433896, 6365560 #### [facility] [address] [place] [address] Terrazzo Worker: Khoi Kong MD RBC 4.54 x10 Normal 4.20-5.40 [facility] Comment on above: Result Comment: Note : RBC morphology is normal unless otherwise stated. Evaluation performed only if differential is requested. Performed By: #### 1 39139, 227527, 357284, 471565, 4614108 #### [facility] [address] [place] [address] Terrazzo Worker: Khoi Kong MD WBC 9.7 x10 Normal 4.5-11.0 [facility] Comment on above: Performed By: #### 1 19302, 280370, 520976, 808483, 3849735 #### [facility] [address] [place] [address] Terrazzo Worker: Khoi Kong MD LIPon 07-25-2021 Lipase [Catalytic activity/Vol] 217 U/L Normal 73-393 [facility] Comment on above: Performed By: #### 1 25978, 279173, 795090, 357847, 6403282 #### [facility] [address] [place] [address] Terrazzo Worker: Khoi Kong MD UAon 07-25-2021 Appearance, U Sl Hazy Normal [facility] Comment on above: Performed By: #### 1 46017 ####[facility] [address] [place] [address] Medical Director: Khoi Kong MD Bacteria, U Occasional Normal [facility] Comment on above: Performed By: #### 1 03739 ####[facility] [address] [place], [place] [id number]) [phone] Director: Khoi Kong MD Bilirubin, U Negative Normal Negative [facility] Comment on above: Performed By: #### 1 62913 ####[facility] [address] [place] [address] Medical Director: Khoi Kong MD Blood, U Large Abnormal Negative [facility] Comment on above: Performed By: #### 1 31880 ####[facility] [address] [place] [address] Medical Director: Khoi Kong MD Color, U Holly Normal [facility] Comment on above: Performed By: #### 1 64911 ####[facility] [address] [place] [address] Medical Director: Khoi Kong MD Glucose Qual, U Negative Normal Negative [facility] Comment on above: Performed By: #### 1 07804 ####[facility] [address]ly[address]02 [place] [address] Medical Director: Khoi Kong MD Ketones, U Negative Normal Negative [facility] Comment on above: Performed By: #### 1 38229 ####[facility] [address] [place] [address] Medical Director: Khoi Kong MD Leukocyte Esterase, U Negative Normal Negative [facility] Comment on above: Performed By: #### 1 44022 ####[facility] [address] [place], [place] [address]) [phone] Director: Khoi Kong MD Mucous, U Few Normal [facility] Comment on above: Performed By: #### 1 51910 ####[facility] [address] [place] [address] Medical Director: Khoi Kong MD Nitrite, U Negative Normal Negative [facility] Comment on above: Performed By: #### 1 59751 ####[facility] [address]csbumk[address]26 [place] [address] Medical Director: Khoi Kong MD pH, U 6.0 Normal 4.5-8.0 [facility] Comment on above: Performed By: #### 1 01452 ####[facility] [address]odnhsrx10419 [place] [address] Medical Director: Khoi Kong MD Protein, U Trace Abnormal Negative [facility] Comment on above: Performed By: #### 1 14010 ####[facility] [address] [place] [address] Medical Director: Khoi Kong MD RBC/HPF, U 9 #/HPF High 0-3 [facility] Comment on above: Performed By: #### 1 65179 ####[facility] [address] [place] [address] Medical Director: Khoi Kong MD Specific [place], U 1.020 Normal 1.001-1.035 [facility] Comment on above: Performed By: #### 1 74698 ####[facility] [address] [place] [address] Medical Director: Khoi Kong MD Squamous Epithelial Cells, U 6 #/HPF Normal [facility] Comment on above: Performed By: #### 1 25991 ####[facility] [address] [place] [address] Medical Director: Khoi Kong MD U MICRO Indicated Normal [facility] Comment on above: Performed By: #### 1 82626 ####[facility] [address] [place] [address] Medical Director: Khoi Kong MD Urobilinogen Qual, U 0.2 EU/dl Normal 0.1-1.0 mg/dl [facility] Comment on above: Result Comment: EU/d l and mg/dl are equivalent units. Performed By: #### 1 78201 ####[facility] [address] [place], [place] [address]) [phone] Director: Khoi Kong MD WBC/HPF, U 3 #/HPF Normal 0-5 [facility] Comment on above: Performed By: #### 1 95723 ####[facility] [address]1987 [place] [address] Medical Director: Khoi Kong MD US BILIARY ECHOon 07-25-2021 US BILIARY ECHO EXAM: US BILIARY ECH O CLINICAL INDICATION: ABD PAIN. TECHNIQUE: Limited grayscale and color Doppler ultrasound images of the abdomen were obtained. COMPARISON: none available. FINDINGS: Liver: Normal size and echotexture of the liver. The liver measures 13.5 cm. Normal hepatopetal flow in the main portal vein. No intrahepatic biliary ductal dilatation. Gallbladder: Surgically absent. The common bile duct measures 3 mm in diameter. Right kidney: 10.3 cm in length. Normal echotexture. No hydronephrosis. Pancreas: the visualized pancreas is unremarkable. Vessels: The visualized inferior vena cava and abdominal aorta are unremarkable. Free fluid: none. IMPRESSION: Surgical absence of the gallbladder. Otherwise unremarkable exam. Electronically signed by: Margy Rees DO 07/25/2021 1:41 PM CDT Normal [facility] Comment on above: Order Comment: BILIA RY ECHO Dietary: Patient to be NPO after 11:00 pm on the evening before the exam date. Result Comment: Tech nologist: YENY Dictated By: MARGY REES DO Signed By: MARGY REES DO Signed Out: 07/25/21 14:41:30 CASE MANAGEMon 02-20-2019 CASE MANAGEM HNO ID: [id number] Author: Radha Rodrigez (Sw) Service: Social Work Author Type: Sql Data Analyst Type: Care Mgt Progress Note Filed: 02/20/2019 12:52 PM Note Text: BEHAVIORAL HEALTH SOCIAL WORK DISCHARGE NOTE SERVICE DATE: 02/20/2019 SERVICE TIME: 11:00am PATIENT'S DISCHARGE PLAN: Discharge Disposition Home with Family/Friend Psychiatry Follow-Up Appointment Psychiatrist Name: Marisol Cantu RN Agency: [facility] Address / Phone #: [phone] [place] [address] / / Appointment Date: 02/27/19 Appointment Time: 10:30am Counselor Referral Information Counselor Name: Nhi Tafoya Agency: [facility]) Address / Phone #: [phone] [place] [address] / / Appointment Date: 02/23/19 Appointment Time: 1:00pm Additional Discharge Information Additional Discharge Resources: In case of a mental health emergency, call Mobile Crisis at [phone] Patient/Representativ e Agreeable With Discharge Plan: Yes FREEDOM OF CHOICE EXPLAINED? Yes. A list of appropriate referrals presented to/discussed with Patient on 02/20/2019 at 11:00am [facility]-owned/affiliated facilities and agencies have been identified Patient/Representativ e Given/Explained Medicare Discharge Notice (IM letter): Not Applicable TRANSPORTATION ARRANGEMENTS: Car w/ PRESCRIPTIONS FILLED PRIOR TO DISCHARGE: No, patient/representativ e given paper scripts ADDITIONAL NOTES: Pt to be d/c'd home today with . Affect is much improved. Pt states she feels she needed the time here to just get herself re-organized and back on track. She plans to talk with her therapist about increasing sessions to weekly. She is agreeable with plan as outlined above. She denied any additional needs/concerns at time of d/c. SIGNATURE: SONY Woody PATIENT NAME: Nida Baldwin DATE: February 20, 2019 TIME: 12:04 PM [facility] NURSING PROGon 02-20-2019 NURSING PROG HNO ID: [id number] Author: Kim Smartittolo, RN Service: Nursing Author Type: Registered Nurse Type: Nursing Progress Note Filed: 02/20/2019 1:25 PM Note Text: Nursing Progress Note Patient Name: Nida Baldwin Patient Location: [id number] [place] [facility] -01 Daily Note: Pt reports she did not sleep well last night as her roommate was talking to herself and yelling out. Able to sleep a little after her room was changed. Reporting a headache this morning rated 3/10 related to lack of sleep. Declined offer of PRN medication. Denies suicidal ideation. Depression rated 4/10 and anxiety rated 7/10. Less tearful this morning. Ate well for breakfast, compliant with AM medications. Gait steady. Attended Community Meeting until she was pulled to see Dr. Zhao and Dr. Peters. Returned to group on her own initiative. Order received for discharge. Pt is pleased with this. Future oriented. Eager to return to her family and her outpatient providers. Her was planning on coming to visit at 1300. Attended Art Therapy. Ate well for lunch. Discharge education on medication and follow up completed via teachback method and she plans on continued compliance. 1316 - all belongings, including home medications, returned to pt and she left with her . Evaluation of IDTP: Pt denies suicidal ideation. Reports improved depression, improving anxiety. Compliant with medications. Fall precautions maintained. Fall safety education reviewed with pt. Yellow wrist band and slippers in place. History of HTN. BP 136/80, pulse 64. Compliant with Norvasc, ASA, Toprol XL. Scheduled for discharge today. Plans on compliance with discharge recommendations. All goals discontinued. This note was completed by: Kim Lowery RN [facility] NURSING PROG HNO ID: [id number] Author: Negrita VigilRn) MIRIAN Stewart Service: Nursing Author Type: Registered Nurse Type: Nursing Progress Note Filed: 02/20/2019 7:04 AM Note Text: Nursing Progress Note Patient Name: Nida Baldwin Patient Location: [facility] [place] [facility] [place]-320C -01 Daily Note: Patient was seen sleeping in her bed at the start of shift. Breathing even and unlabored. Will continue to monitor for safety. 0330 Patient was seen up out of bed due to roommate talking. Patient was moved to [facility]. She was then seen sleeping in her bed. 0600 Patient slept 7 hours This note was completed by: Negrita Stewart RN [facility] PROGRESSon 02-20-2019 PROGRESS HNO ID: [id number] Author: Felecia Ely Service: ? Author Type: Physician Type: Progress Notes Filed: 03/01/2019 8:51 PM Note Text: [facility] - General Progress Note NIDA BALDWIN : 1980 AGE: 38 SEX: F CSN: [id number] HOSP SVC: YR LOCATION: [facility] DATE OF SERVICE: 02/20/2019 SUBJECTIVE: A 38-year-old admitted to the hospital Inpatient Psych Unit with depression and suicidal. Reports improvement. Thinking positive. Less fatigue. No chest pain or shortness of breath. Wheezing is better, intermittent. Pulse ox was reviewed. Urine toxic and screen were reviewed. ASSESSMENT AND PLAN: 1. Depression with suicidal. Continue the current treatment. Outpatient followup with Psych. 2. Asthma. Continue the albuterol treatment, need outpatient. We will schedule PFTs. 3. Drug abuse. Urine toxic and screen were positive PCP, THC. Advised to quit. 4. Anemia. Outpatient. followup CBC. Discussed with Inpatient Psych. Medically clear. Followup with me in a week. PAST MEDICAL HISTORY Diagnosis Date - Asthma - History of vasculitis - Pneumonia - Psychiatric disorder anxiety, bi-polar - Restless leg syndrome - Stroke (HCC) 11/2015 Social History Socioeconomic History Marital status: Spouse name: Not on file Number of children: Not on file Years of education: Not on file Highest education level: Not on file Occupational History Not on file Social Needs Financial resource strain: Not on file Food insecurity: Worry: Not on file Inability: Not on file Transportation needs: Medical: Not on file Non-medical: Not on file Tobacco Use Smoking status: Current Every Day Smoker Packs/day: 0.50 Years: 13.00 Pack years: 6.5 Types: Cigarettes Smokeless tobacco: Never Used Tobacco comment: cutting down, down 5 cigarettes daily Substance and Sexual Activity Alcohol use: No Drug use: Yes Types: Marijuana Comment: weekly Sexual activity: Yes Partners: Female Lifestyle Physical activity: Days per week: Not on file Minutes per session: Not on file Stress: Not on file Relationships Social connections: Talks on phone: Not on file Gets together: Not on file Attends congregation service: Not on file Active member of club or organization: Not on file Attends meetings of clubs or organizations: Not on file Relationship status: Not on file Intimate partner violence: Fear of current or ex partner: Not on file Emotionally abused: Not on file Physically abused: Not on file Forced sexual activity: Not on file Other Topics Concerns: Not on file Social History Narrative Not on file FAMILY HISTORY Problem Relation Age of Onset - Hypertension Mother - Depression Mother - Hypertension Father - Depression Father - other (crohns) Maternal Grandmother - Cancer Paternal Grandfather - Breast Cancer Other 50 PAST SURGICAL HISTORY Procedure Laterality Date - DENTAL SURGERY HX wisdom teeth - LAPAROSCOPIC CHOLEYCYSTECTOMY 08/24/2017 - MIDLINE INSERTION/CONSULT 08/21/2016 - ORTHOPEDICS SURGERY HX right foot - PICC LINE INSERT/CONSULT 12/19/2015 R.O.S negative other than HPI AND PMH all other SYS reviewed and negative. [facility] Most recent images Reviewed Last EKG/Rhythm reviewed Med list reviewed per EDWINA Sampson reviewed VS noted per RN Chart GENERAL: o x 3 in distress. SKIN: No rashes . ENT mucosa, Normal/nose normal NECK: no jugulovenous distention NO lymphadenopathy LUNGS:No wheezing,no ronchi no rales. CARDIAC: S1 and S2 ABDOMEN: Abdomen soft, non-tender. EXTREMITIES: Extremities normal. NEURO: non focal PULSES: + pedal / radial No edema Felecia Ely M.D. Internal Medicine [facility] HEALTHon 02-19-2019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 each week. Qty: 4 capsule Refills: 0 LORazepam (ATIVAN) 1 mg tablet Take 1 mg by mouth once daily. albuterol HFA (VENTOLIN HFA) 90 mcg/actuation inhaler Inhale 2 Puffs as instructed every 4 hours as needed for Wheezing/Shortness of Breath. Qty: 1 Inhaler Refills: 11 lamoTRIgine (LAMICTAL) 100 mg tablet Take 200 mg by mouth once daily. 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 Marijuana: Current usage is intermittent, 1-3 times per month depending on their finances and what her is in the mood for. Cocaine: No history of abuse or dependence. Opioids: No history of abuse or dependence. Tobacco: Current cigarette smoker; 0.5/ppd Other: None. Patient was adamant with regards to lack of PCP use despite positive screen, possible false positive from Lamictal should be taken into account. ALLERGIES Allergen Reactions - Bees Swelling Site swelling only per patient - Tomato GI Upset SOCIAL HISTORY: Born AND Raised in [facility] [place] [facility], raised in [place] initially moved to [place] in 3rd grade Childhood: Dad left when she was 11, mother tried her best to keep it together but struggled somewhat Raised by: Mother and father until 11, mother then dated a man for a time and then a different man. Performance in school/extracurricula rs: Patient reports doing alright in school, had trouble with motivation. No extracurriculars. Education: Some college Employment: Disabled due to mental health diagnoses. Relationships: The patient currently is . Has been for 3 years, but together for 14 years total. Children: One daughter, biologically hers, father lives in [place]. Current Supports Include: Spouse/partner and her friend Donna. Legal History: None per her report Sabianist Affiliations: [employer] FAMILY HISTORY: Father - depression Sisters - depression Aunts (maternal) - depression Objective VITALS: LMP 02/04/2019 (Approximate) MENTAL STATUS EXAMINATION: Appearance: In hospital gown Behavior: Engaged readily. Psychomotor: No psychomotor agitation. Cognition Level of Consciousness: Awake and alert. No fluctuation in wakefulness. Orientation: Person, Place, Time and Situation Memory: Intact Attention/Concentrati on: Good Fund of Knowledge: Able to demonstrate an awareness of current events. Mood: Hopeless Affect: Depressed and reactive within a normal range. Speech/Language: Appropriate tone, prosody, gogo, phonetics, and syntax Thought Form: Goal-directed. No loosening of associations. Thought Content: Hallucinations: Auditory - patient reported hearing voices throughout the past few days Perceptual Disturbances: Did not appear to respond to auditory stimuli. Safety: Suicidal Ideations: Thoughts of suicide, no intent or plan. Homicidal Ideations: No homicidal ideation, intent or plan. Insight: Recognized the presence of illness. Judgment: Limited SUICIDE RISK ASSESSMENT APPLICABLE: Yes ? LETHALITY FACTORS: Access to Means: Any firearms in home? No Moved a firearm recently? No Any current suicide plan not involving firearm? No Is patient an inpatient in [facility]? No--Pt will not be admitted to [facility]. Presence of a Plan or Final Arrangements: Has pt taken any actions to follow a suicide plan? Yes - Impulsive overdoses per her report Demographic Factors: Marital Status: Ethnicity: White(Highest risk is ) Gender: female (Highest risk is male) Age: [age] year old (Highest risk is >65) Family history of suicide? No Evidence of Intentional Self-Harm History of prior suicide attempts? Yes Past thoughts of self-harm? Yes Self-Mutilation: History of past self-mutilation without expressed suicide intent? Yes Sexual Orientation: Is patient homosexual or bisexual? Yes Recent Increase in Drug or Alcohol Use? No Rural or Isolated Home Environment? Yes ? PROTECTIVE FACTORS: Clinician Judgment of Insight: fair Social Resources: Family or friends who are concerned about pt? Yes Lives with others? Yes Presence of Dependents(e.g. children, elderly parents, pets)? Yes Recent Psychiatric Inpatient Treatment? No Presence of Meaningful Daily Activities? Yes Currently employed? No Sabianist Affiliation? Yes Therapeutic [place]: Does pt believe treatment can help his/her negative feelings? Yes History of good medication compliance in past? Yes ? FORMULATION OF SUICIDE RISK: Low acute risk as an inpatient, chronic moderate to high risk Will any interventions be undertaken to address above-listed Lethality or Protective Factors? Transfer to inpatient general psychiatry unit Reduce alcohol and drug abuse Enhance/create therapeutic alliance Consult Pastoral Care to improve congregation affiliation Reconnect with family/friends (Assessment adapted from Suicide Prevention Toolkit for Implementation of NPSG 15A by Joint Commission Resources) PHYSICAL EXAM: Blood pressure 124/85, pulse 72, temperature 36.4 ?C (97.5 ?F), temperature source Temporal, resp. rate 18, height 165.1 cm (5' 5), weight 96.5 kg (212 lb 12.8 oz), last menstrual period 02/04/2019. GENERAL: Alert, no distress, cooperative. NEUROLOGIC: No gross abnormal findings including cranial nerves 2-12. MUSCULOSKELETAL: Normal muscle strength, Normal muscle tone and No involuntary movements. GAIT: Normal. DATA: Diagnostic tests reviewed for today's visit: Most recent labs and imaging results. Most recent EKG CT Brain (if indicated): Not Indicated TOXICOLOGY RESULTS FOR THE PAST 72 HOURS: Recent Labs 02/18/19 1735 UBARB Negative UBENZ Negative UCOC2 Negative UOPI Negative UPCP Preliminary positive.* UETOH <11 WBC (k/uL) Date Value 02/18/2019 9.19 Hematocrit (%) Date Value 02/18/2019 33.9 Platelet Count (k/uL) Date Value 02/18/2019 312 Sodium (mmol/L) Date Value 02/18/2019 144 Potassium (mmol/L) Date Value 02/18/2019 3.6 BUN (mg/dL) Date Value 02/18/2019 11 AST (U/L) Date Value 02/18/2019 17 ALT (U/L) Date Value 02/18/2019 15 TSH (uU/mL) Date Value 03/23/2018 1.270 Assessment/Plan DIAGNOSIS: 1. PRIMARY: Mood Disorder Major Depressive Disorder, Recurrent, Severe Without Psychotic Symptoms 2. Generalized Anxiety Disorder 3. Cannabis Use Disorder 4. Cluster B Traits GAF: -20-11 Some danger of hurting self or others INFORMED CONSENT: Yes, completed with the Patient. Discussed the risks, benefits and alternatives to the medication(s) recommended. Consent was given. RISK ASSESSMENT: Suicide: Acutely low, chronically moderate to high Homicide: Low Deliberate Self-Harm: Low Aggression: Low Imminent Physical Self Impairment: Low PLAN: Medications: Psych Meds: Patient unsure of medication changes, discharge focused Likely to benefit from further DBT participation CAMP DIRECTOR psychiatric medications resumed: Lamictal 200 mg daily PRN for Acute Agitation: Ativan 1 mg PRN, Haldol 5 mg PRN No contraindications for seclusion/restraint PRN: Tylenol 650 mg PRN for pain, Atarax 50 mg PRN for anxiety Medical Meds: Norvasc 5 mg daily Aspirin 81 mg daily Lipitor 80 mg daily Drisdol 50,000 units once weekly (Tuesdays) Neurontin 200 mg TID Toprol XL 50 mg daily Cellcept 1,000 mg BID Protonix 40 mg BID Behavioral: Encouraged milleu involvement and group attendance Safety Precautions: q15 minute checks EKG on admission Qtc 450 ms IV not indicated at this time Urine : Negative Consults: IM (Dr. Han) for medical management for chronic conditions and need for DVT prophylaxis - vital sign monitoring per unit protocol - follow-up labs: Lipid panel, HgbA1c, RPR, TSH Social Work for assistance with placement and outpatient follow-up To be Staffed SIGNATURE: Malachi Whelan DO PATIENT NAME: Nida Baldwin DATE: February 18, 2019 TIME: 10:36 PM PAGER/CONTACT#: [id number] [facility] Hemoglobin A1con 02-19-2019 HbA1c (Bld) [Mass fraction] 111 mg/dL Normal [facility] Comment on above: Result Comment: eAG: (Estimated average glucose) is a calculated value from HgbA1c and is corporate sales representative of the average blood glucose level in the last 2-3 month period. Performed By: #### H BA1C ####[facility] [place], [place] [phone] HbA1c (Bld) [Mass fraction] 5.5 % Normal 4.3-5.6 [facility] Comment on above: Result Comment: Amer ican Diabetes Association guidelines indicate that patients with HgbA1c in the range 5.7-6.4% are at increased risk for development of diabetes, and intervention by lifestyle modification may be beneficial. HgbA1c greater or equal to 6.5% is considered diagnostic of diabetes. Performed By: #### H BA1C ####[facility] [place], [place] [phone] Lipid Panel, [place] 019 Cholesterol [Mass/Vol] 110 mg/dL Normal <200 [facility] Comment on above: Result Comment: <200 mg/dL, Desirable 200-239 mg/dL, Borderline high >239 mg/dL, High Performed By: #### L IPB, TSH ####[facility] [phone] Cholesterol in HDL [Mass/Vol] 39 mg/dL Low >39 [facility] Comment on above: Result Comment: 40-5 9 mg/dL, Acceptable >59 mg/dL, High: Negative risk factor for coronary heart disease <40 mg/dL, Low: Positive risk factor for coronary heart disease Performed By: #### L IPB, TSH ####[place] [phone] Cholesterol in LDL [Mass/Vol] 57 mg/dL Normal <100 [facility] Comment on above: Result Comment: <100 mg/dL, Optimal 100-129 mg/dL, Near optimal/above optimal 130-159 mg/dL, Borderline high 160-189 mg/dL, High >189 mg/dL, Very high Secondary prevention optimal LDL Cholesterol levels are recommended to be < 70 mg/dL Performed By: #### L IPB, TSH ####[place] [phone] LDL:HDL Ratio 1.46 Normal <2.54 [facility] Comment on above: Result Comment: Refe rence: 1. National Cholesterol Education Program ATP III Guideline At-A-Glance Quick Desk Reference: National Heart, Lung, and Blood [place]. National Institutes of Health. 2001: NIH Publication No. 01-3305. 2. An International Atherosclerosis Society position paper: global recommendations for the management of dyslipidemia: executive summary, Atherosclerosis. 2014: 232(2):410-413. Performed By: #### L IPB, TSH ####[place] [phone] Non HDL Cholesterol 71 mg/dL Normal <130 [facility] Comment on above: Performed By: #### L IPB, TSH ####[place] [address] TC:HDL Ratio 2.82 Normal <5.10 [facility] Comment on above: Performed By: #### L IPB, TSH ####[place] [address] [place] [phone] Triglyceride [Mass/Vol] 71 mg/dL Normal <150 [facility] Comment on above: Result Comment: <150 mg/dL, Normal 150-199 mg/dL, Borderline high 200-499 mg/dL, High >499 mg/dL, Very high Performed By: #### L IPB, TSH ####[facility] [phone] VLDL Cholesterol 14 mg/dL Normal <30 [facility] Comment on above: Performed By: #### L IPB, TSH ####[facility] [phone] NURSING PROGon 02-19-2019 NURSING PROG HNO ID: [id number] Author: Mora (Rn) MIRIAN Callejas Service: Nursing Author Type: Registered Nurse Type: Nursing Progress Note Filed: 02/19/2019 11:08 PM Note Text: Nursing Progress Note Patient Name: Nida Baldwin Patient Location: [address]/[place] [address] Daily Note: [id number] Patient out to group at start of shift. Pleasant and cooperative. Engaged in unit activities. Socially appropriate on unit. Returns to room after group, observed resting. Up for dinner, good appetite, Received visit from family, including 15 y/o daughter. Patient reports feeling better today and states she feels she actually has it together and states that she has not had to deal with anything in years and having to now, triggered her not being able to handle it. States she is happy to be here and will stay as long as the doctors feel she needs to. Patient has maintained stability in mood this evening and has controlled emotions. No tearfulness in conversation. Patient remains blunted but can brighten. Denies suicidal ideations. Depression and anxiety are rated 5/10 but patient states that she knows it will get worse as the night goes on. Requests PRN daily Ativan for bed time. Remains in common area. Agrees to make needs known. Patient requests hearing aids for morning that she has in her purse. This note was completed by: Mora Callejas RN [facility] NURSING PROG HNO ID: [id number] Author: Kim (Rn) MIRIAN Lowery Service: Nursing Author Type: Registered Nurse Type: Nursing Progress Note Filed: 02/19/2019 2:10 PM Note Text: Nursing Progress Note Patient Name: Nida Baldwin Patient Location: [id number] [place] - Daily Note: Pt reports she slept fairly well last night. No reports of pain this AM. History of CVA, recent falls, feels weak and unsteady at times. Gait is steady this AM. fall safety education reviewed with pt. Yellow wrist band/slippers in place. Very tearful this AM. Trying to reach her and she is not picking up the phone. Also, it is her daughter's birthday and she feels badly missing it.Denies suicidal/homicidal ideation or hallucinations. Depression and anxiety both rated 8/10. Did not make a complete phone list and does not know most of her numbers. Her valuables were still on the unit and she was assisted with completing a phone list. Ate well for breakfast. BP 140/78, pulse 66. Compliant with Norvasc, ASA, Toprol XL. Attended Community Meeting on her own initiative and was an active and attentive participant. Requesting the Nicotine patch - will discuss with Dr. Zhao and Dr. Peters. Outpatient PCP: Dr. Ely - he will complete HANDP and follow pt medically. 1020: Order for Nicotine patch received from Dr. Peters. Patch applied at 1046. On the phone at intervals. Mood labile. Very easily moved to tears. Attended Music Therapy. Ate well for lunch. Seen by Dr. Zhao and Dr. Peters. New orders: Lamictal increased to 150 mg BID starting tomorrow. She will receive 100 mg tonight at bedtime. Trazodone discontinued, will receive doxepin 25 mg QHS PRN. Order also received for Child Visitation. Attended afternoon Art Therapy. Evaluation of IDTP: Pt denies suicidal ideation, reports continued depression and anxiety. Compliant with medications. Attending groups to work on effective coping skills. History of CVA. On fall precautions. See above for assessment. History of HTN. See above of vital signs and treatment. Staff will encourage progress toward goals. This note was completed by: Kim Lowery RN [facility] NURSING PROG HNO ID: [id number] Author: Moses (Mirian) MIRIAN Garcia Service: Nursing Author Type: Registered Nurse Type: Nursing Progress Note Filed: 02/19/2019 12:20 AM Note Text: Nursing Progress Note Patient Name: Nida Baldwin Patient Location: [address]/[id number] - Daily Note: Pt admitted from [facility] with admitting dx of Depression at 2255. PPHx of depression. PMHx of stroke x2, RLS, asthma, 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 DRIVER vasculitis, HTN, and HLD. Pt compliant with skin assessment and interview. Skin WNL. Pt reports that after suffering from a stroke she lost her sense of emotion. While recovering from stroke and going through rehab these emotions were placed in a box and she did not focus on them. Since recovering from stroke her emotions have become more pronounced and has been having difficulty controlling how she feels. Recently she states she has been having difficulties and argument with her which caused her to have suicidal ideation of either OD on medications around house or using knives that she collects that are located inside her home. Pt expressed not feeling safe this afternoon and was brought to ED to seek help. SI is fleeting with protective factor being her 15 yr old daughter. Goal of admission is increase counseling to once a week. Pt denied smoking cessation. Pt previously had flu vaccine. This note was completed by: Moses Garcia RN [facility] PROGRESSon 02-19-2019 PROGRESS HNO ID: [id number] Author: Felecia Ely Service: ? Author Type: Physician Type: Progress Notes Filed: 03/01/2019 8:50 PM Note Text: [facility] - General Progress Note NIDA BALDWIN : 1980 AGE: 38 SEX: F CSN: [id number] HOSP [facility]: [place] LOCATION: [facility] ATTENDING PHYSICIAN: EMILY ZHAO DATE OF SERVICE: 02/19/2019 SUBJECTIVE: This is a 38-year-old female, who was admitted to the hospital with depression and suicidal ideation, history of drug abuse, and obesity. The patient also has history of restless legs syndrome, asthma, reporting fatigue, generalized with no focal weakness, mild intermittent wheezing, more at nighttime. No chest pain, tightness, or pressure. ASSESSMENT AND PLAN: 1. Depression with suicidal. Admit to Inpatient Psych Unit. Psych consult. Social Service consult. Supportive care. 2. Asthma, recommend albuterol treatment. Need PFTs. Last chest x-ray reviewed. 3. Mild anemia, follow up CBC. 4. Drug abuse, urine toxic and screen. Discussed with inpatient Psych Unit. PAST MEDICAL HISTORY Diagnosis Date - Asthma - History of vasculitis - Pneumonia - Psychiatric disorder anxiety, bi-polar - Restless leg syndrome - Stroke (HCC) 11/2015 Social History Socioeconomic History Marital status: Spouse name: Not on file Number of children: Not on file Years of education: Not on file Highest education level: Not on file Occupational History Not on file Social Needs Financial resource strain: Not on file Food insecurity: Worry: Not on file Inability: Not on file Transportation needs: Medical: Not on file Non-medical: Not on file Tobacco Use Smoking status: Current Every Day Smoker Packs/day: 0.50 Years: 13.00 Pack years: 6.5 Types: Cigarettes Smokeless tobacco: Never Used Tobacco comment: cutting down, down 5 cigarettes daily Substance and Sexual Activity Alcohol use: No Drug use: Yes Types: Marijuana Comment: weekly Sexual activity: Yes Partners: Female Lifestyle Physical activity: Days per week: Not on file Minutes per session: Not on file Stress: Not on file Relationships Social connections: Talks on phone: Not on file Gets together: Not on file Attends congregation service: Not on file Active member of club or organization: Not on file Attends meetings of clubs or organizations: Not on file Relationship status: Not on file Intimate partner violence: Fear of current or ex partner: Not on file Emotionally abused: Not on file Physically abused: Not on file Forced sexual activity: Not on file Other Topics Concerns: Not on file Social History Narrative Not on file FAMILY HISTORY Problem Relation Age of Onset - Hypertension Mother - Depression Mother - Hypertension Father - Depression Father - other (crohns) Maternal Grandmother - Cancer Paternal Grandfather - Breast Cancer Other 50 PAST SURGICAL HISTORY Procedure Laterality Date - DENTAL SURGERY HX wisdom teeth - LAPAROSCOPIC CHOLEYCYSTECTOMY 08/24/2017 - MIDLINE INSERTION/CONSULT 08/21/2016 - ORTHOPEDICS SURGERY HX right foot - PICC LINE INSERT/CONSULT 12/19/2015 R.O.S negative other than HPI AND PMH all other SYS reviewed and negative. Most recent labs reviewed [facility] consultants notes reviewed Most recent images Reviewed Last EKG/Rhythm reviewed Med list reviewed per EDWINA Sampson reviewed VS noted per RN Chart SKIN: No rashes . ENT mucosa, Normal/nose normal NECK: no jugulovenous distention NO lymphadenopathy LUNGS:No wheezing,no ronchi no rales. CARDIAC: S1 and S2 ABDOMEN: Abdomen soft, non-tender. EXTREMITIES: Extremities normal. NEURO: non focal PULSES: + pedal / radial No edema Felecia Ely M.D. Internal Medicine Normal [facility] RPRon 02-19-2019 Reagin Ab RPR Ql (S) Non Reactive Normal Non Reactive [facility] Comment on above: Performed By: #### R RI ####[facility] [address] [place], [place] [phone] TSHon 02-19-2019 TSH Qn 1.050 uU/mL Normal 0.400-5.500 [facility] Comment on above: Result Comment: If t he patient is , TSH reference range varies by gestational period: First Trimester 0.100-2.500 uU/mL Second Trimester 0.200-3.000 uU/mL Third Trimester 0.300-3.000 uU/mL References: 1. Ruffin, Herber M, Yaw GREENBERG, et al. Management of Thyroid Dysfunction during and : An Endocrine Society Clinical Practice Guideline. J Clin Endocrinol Metab, 2012:97:2613-9931. 2. Guicho MIRAMONTES. Overview of thyroid disease in . UpToDate. 2016. Accessed on October 10, 2015. Performed By: #### L IPB, TSH ####[facility] [phone] HISTORY PHYSICALon HISTORY PHYSICAL HNO ID: [id number] Author: Felecia Ely Service: ? Author Type: Physician Type: HANDP Filed: 03/01/2019 8:49 PM Note Text: [facility] - History and Physical NIDA BALDWIN : 1980 AGE: 38 SEX: F CSN: [id number] [facility]: PS[facility] LOCATION: [facility] 02/18/2019 This is a 38-year-old female, who came in the hospital with depression, suicidal ideation, presented to [facility] ED and subsequently transferred to the Inpatient Psych Unit. Nida is a 38 year old female with a PPHx significant for bipolar disorder, major depressive disorder, and generalized anxiety disorder admitted to [address] in the setting of worsening depressive symptoms and suicidal ideation. She reports the onset of these symptoms being approximately 2 weeks ago. This correlates with a recent increase in the amount of arguments that the patient and her have been having. She states that these arguments are typically related to issues in which she feels that her is not spending enough time at home and questions her fidelity to their relationship. The patient stated that her will find any reason to go out [facility] all around the city. She states that in the past two weeks her has brought up a lot of things from the past that she thought she had gotten over but has been unable to quit thinking about. She currently reports thoughts of and suicide with no plan, and describes her mood as hopeless. She reports a loss of interest in things that she previously enjoyed, overwhelming feelings of guilt and shame, lack of energy, and the inability to concentrate. ASSESSMENT AND PLAN: 1. Depression with suicidal ideation. Admit to Inpatient Psych Unit. Suicidal precaution. Psych consult. Supportive care. 2. Asthma, aerosol treatment as needed, albuterol. We will need pulmonary function test. 3. Obesity, need to lose weight, fasting lipid panel. 4. Anemia, follow up CBC. 5. Anxiety, psych consultation. 6. Drug abuse, urine tox screen. Discussed with inpatient Psych Unit. PAST MEDICAL HISTORY Diagnosis Date - Asthma - History of vasculitis - Pneumonia - Psychiatric disorder anxiety, bi-polar - Restless leg syndrome - Stroke (HCC) 11/2015 Social History Socioeconomic History Marital status: Spouse name: Not on file Number of children: Not on file Years of education: Not on file Highest education level: Not on file Occupational History Not on file Social Needs Financial resource strain: Not on file Food insecurity: Worry: Not on file Inability: Not on file Transportation needs: Medical: Not on file Non-medical: Not on file Tobacco Use Smoking status: Current Every Day Smoker Packs/day: 0.50 Years: 13.00 Pack years: 6.5 Types: Cigarettes Smokeless tobacco: Never Used Tobacco comment: cutting down, down 5 cigarettes daily Substance and Sexual Activity Alcohol use: No Drug use: Yes Types: Marijuana Comment: weekly Sexual activity: Yes Partners: Female Lifestyle Physical activity: Days per week: Not on file Minutes per session: Not on file Stress: Not on file Relationships Social connections: Talks on phone: Not on file Gets together: Not on file Attends congregation service: Not on file Active member of club or organization: Not on file Attends meetings of clubs or organizations: Not on file Relationship status: Not on file Intimate partner violence: Fear of current or ex partner: Not on file Emotionally abused: Not on file Physically abused: Not on file Forced sexual activity: Not on file Other Topics Concerns: Not on file Social History Narrative Not on file FAMILY HISTORY Problem Relation Age of Onset - Hypertension Mother - Depression Mother - Hypertension Father - Depression Father - other (crohns) Maternal Grandmother - Cancer Paternal Grandfather - Breast Cancer Other 50 PAST SURGICAL HISTORY Procedure Laterality Date - DENTAL SURGERY HX wisdom teeth - LAPAROSCOPIC CHOLEYCYSTECTOMY 08/24/2017 - MIDLINE INSERTION/CONSULT 08/21/2016 - ORTHOPEDICS SURGERY HX right foot - PICC LINE INSERT/CONSULT 12/19/2015 R.O.S negative other than HPI AND PMH all other SYS reviewed and negative. [facility] Most recent images Reviewed Last EKG/Rhythm reviewed Med list reviewed per EDWINA Sampson reviewed VS noted per RN Chart GENERAL: o x 3 in distress. SKIN: No rashes . ENT mucosa, Normal/nose normal NECK: no jugulovenous distention NO lymphadenopathy LUNGS:No wheezing,no ronchi no rales. CARDIAC: S1 and S2 ABDOMEN: Abdomen soft, non-tender. EXTREMITIES: Extremities normal. NEURO: non focal PULSES: + pedal / radial No edema No goiter No carotid bruits. Felecia Ely M.D. Internal Medicine [facility] ED NOTEon 03-08-2018 ED NOTE HNO ID: [id number] Author: Reyes VigilRn) MIRIAN Foreman Service: (none) Author Type: Registered Nurse Type: ED Notes Filed: 03/07/2018 11:12 PM Note Text: Patient given verbal and written D/C instructions. All patient questions addressed and answered. Patient verbalized understanding. Instructed to follow up with PCP and to return to ED if conditions and symptoms persist or worsen. [facility] ED NOTE HNO ID: [id number] Author: ROSS Fishman (Huc) Service: (none) Author Type: Health Liner Installer Type: ED Notes Filed: 03/09/2018 1:25 PM Note Text: Emergency Services: ED Call Back Questionnaire SERVICE DATE: 03/07/2018 Are you feeling better? Yes Any questions about discharge instructions and follow-up care? No Were you able to make a follow up appointment? NO Do you have any further questions? No Is there anything that we could have done differently to improve your ED visit? No SIGNATURE: ROSS Fishman PATIENT NAME: Nida Baldwin DATE: March 09, 2018 TIME: 1:25 PM [facility] ED NOTE HNO ID: [id number] Author: Reyes VigilRn) MIRIAN Foreman Service: (none) Author Type: Registered Nurse Type: ED Notes Filed: 03/07/2018 11:07 PM Note Text: Medication given. Patient educated on medication and verbalized understanding. Patient agreeable with POC. Will continue to monitor. [facility] ED NOTE HNO ID: [id number] Author: Reyes VigilRn) MIRIAN Foreman Service: (none) Author Type: Registered Nurse Type: ED Notes Filed: 03/07/2018 11:03 PM Note Text: Pt is not registered, will discharge once registered. [facility] ED NOTE HNO ID: [id number] Author: Martha VigilRnWayne Marte RN Service: Nursing Author Type: Registered Nurse Type: ED Notes Filed: 03/07/2018 10:42 PM Note Text: Pt at xray will medicate when returns [facility] ED NOTE HNO ID: [id number] Author: Martha (Rn) MIRIAN Marte Service: Nursing Author Type: Registered Nurse Type: ED Notes Filed: 03/07/2018 10:19 PM Note Text: I agree with medics triage [facility] ED NOTE HNO ID: [id number] Author: Lenin (Medic) Juliann Service: (none) Author Type: Automotive Tire Testing Supervisor and Fire Sprinkler Inspector Type: ED Notes Filed: 03/07/2018 10:05 PM Note Text: Pt to w/ left eye irritation. Pt st's that she woke up yesterday w/ an itchy and watery eye. Denies any trauma or blurred vision, no other complaints. [facility] ED PROV NOTEon 03-08-2018 ED PROV NOTE HNO ID: [id number] Author: Abdiel Smith (Pa) Service: (none) Author Type: Physician Sack Filler Type: ED Provider Notes Filed: 03/07/2018 11:05 PM Note Text: ED Provider Note Patient Name: Nida Baldwin SERVICE DATE: 03/07/18 History Patient presents with: Conjunctivitis This is a 37 year old female with PMHx of cerebral arteritis (on mycophenolate), stroke, history of pneumonia and asthma presenting to the ED with a 2 day history of left eye pain, discharge and swelling. She also states that she has had an upper respiratory infection for the past month, however, is not concerned about that and is more concerned about the left eye pain, erythema and swelling. She states that yesterday she woke up and noticed that her left eye has been itchy and draining a clear discharge. She states that she woke up this morning and her eye was stuck shut due to the discharge and she had to place a warm washcloth on the eye for 20 minutes in order for the eye to open. She states that the eye is only moderately painful at a 4/10, and describes the pain as a burning sensation in the lower part of the eye, constant, aggravated with palpation, associated with clear discharge, eyelid swelling, mild conjunctival injection and eyelid erythema, rhinorrhea, cough productive of clear phlegm and sinus congestion, not associated with pain on EOM, trauma to the eye, history of glaucoma or other intraocular pathologies. PAST MEDICAL HISTORY Diagnosis Date - Asthma - Pneumonia - Psychiatric disorder anxiety, bi-polar - Stroke (HCC) 11/2015 PAST SURGICAL HISTORY Procedure Laterality Date - LAPAROSCOPIC CHOLEYCYSTECTOMY 08/24/2017 - MIDLINE INSERTION/CONSULT 08/21/2016 - ORTHOPEDICS SURGERY HX right foot - PICC LINE INSERT/CONSULT 12/19/2015 FAMILY HISTORY Problem Relation Age of Onset - Hypertension Mother - Depression Mother - Hypertension Father - Depression Father Social History Social History Main Topics - Smoking status: Current Every Day Smoker Packs/day: 0.50 Years: 13.00 Types: Cigarettes - Smokeless tobacco: Never Used - Alcohol use No - Drug use: Yes Types: Marijuana Comment: Last marijuana use 08-17-17 - Sexual activity: Yes Partners: Female ALLERGIES Allergen Reactions - Bees Swelling Site swelling only per patient - Tomato GI Upset Review of Systems Constitutional: Negative for chills, fatigue and fever. HENT: Positive for congestion, postnasal drip, rhinorrhea and sinus pressure. Negative for ear discharge, ear pain and sore throat. Eyes: Positive for pain, discharge, redness and itching. Negative for photophobia and visual disturbance. Respiratory: Positive for cough. Negative for shortness of breath. Cardiovascular: Negative for chest pain. Gastrointestinal: Negative. Genitourinary: Negative. Musculoskeletal: Negative. Skin: Positive for color change. Neurological: Positive for headaches. Negative for dizziness, syncope, speech difficulty, weakness and light-headedness. Hematological: Negative for adenopathy. Physical Exam BP 135/80 Pulse 82 Temp (Src) 98.5 (Oral) Resp 16 Ht 5' 5 (1.65m) Wt 260 lb (117.9kg) SpO2 98% BMI 43.27 kg/(m2). Physical Exam Constitutional: She is oriented to person, place, and time. She appears well-developed and well-nourished. No distress. HENT: Head: Normocephalic and atraumatic. Right Ear: External ear normal. Left Ear: External ear normal. Nose: Nose normal. Mouth/Throat: Oropharynx is clear and moist. No oropharyngeal exudate. Eyes: Pupils are equal, round, and reactive to light. EOM are normal. Right eye exhibits no discharge. Left eye exhibits discharge (clear). Left eye exhibits no chemosis, no exudate and no hordeolum. No foreign body present in the left eye. Right conjunctiva is not injected. Right conjunctiva has no hemorrhage. Left conjunctiva is injected. Left conjunctiva has no hemorrhage. No scleral icterus. Right eye exhibits normal extraocular motion and no nystagmus. Left eye exhibits normal extraocular motion and no nystagmus. Slit lamp exam: The left eye shows no corneal abrasion, no corneal flare, no corneal ulcer, no foreign body, no hyphema, no hypopyon, no fluorescein uptake and no anterior chamber bulge. Neck: Normal range of motion. Neck supple. Cardiovascular: Normal rate, regular rhythm, normal heart sounds and intact distal pulses. Exam reveals no gallop and no friction rub. No murmur heard. Pulmonary/Chest: Effort normal and breath sounds normal. No respiratory distress. She has no wheezes. She has no rales. Abdominal: Soft. Bowel sounds are normal. There is no tenderness. Musculoskeletal: Normal range of motion. Lymphadenopathy: She has no cervical adenopathy. Neurological: She is alert and oriented to person, place, and time. Skin: Skin is warm and dry. Capillary refill takes less than 2 seconds. She is not diaphoretic. There is erythema (left periorbital see eye section). Psychiatric: She has a normal mood and affect. Her behavior is normal. Nursing note and vitals reviewed. Diagnostic Testing ED Labs Ordered and Reviewed - No data to display Procedures Visual Acuity - Left Eye (OS): 20/40 Both Eyes (OU): 20/30 Right Eye (OD): 20/40 Other - Vision Corrected?: Not Corrected Tonometry: OS: 19 mmHg Fluoroscein staining: No uptake, negative Ming sign ED Course / Clinical Impression XR CHEST 2V FRONTAL/LAT Final Result IMPRESSION: NO ACTIVE CARDIOPULMONARY DISEASE IS IDENTIFIED Agency Recruiter: P[facility] Transcribe Date/Time: Mar 07 2018 10:47P Dictated by : WINTER STEELE MD This examination was interpreted and the report reviewed and electronically signed by: WINTER STEELE MD on Mar 07 2018 10:48PM EST Clinical Impressions as of Mar 075 Periorbital cellulitis of left eye Course: Vital signs were reviewed. Triage records were reviewed. Medical records were reviewed. Nursing notes were reviewed and incorporated. Oral Clindamycin given Radiographs were reviewed by the radiologist and myself and interpreted as chest x-ray: No acute cardiopulmonary findings At this time I believe the likely diagnosis to be left periorbital cellulitis. Based on the history, physical and clinical course I considered but have low suspicion for orbital cellulitis, corneal abrasion/ulcer/retain ed foreign body, globe rupture, acute narrow angle glaucoma, keratitis or other acute intraorbital catastrophe. The patient was discharged home in good condition with instructions to return to the emergency department immediately if new or worsening symptoms develop. The patient and/or family as well as anybody present: -if seated in an open space, such as Results Waiting, were asked permission and permission granted if we could proceed with medical questioning and discussion of medical test results -had the results of all tests and the diagnosis reviewed and explained to them and there were no further questions -patient expressed understanding and was agreeable to the stated plan. No barriers of communication were apparent and all questions were answered. -were given both verbal and written discharge instructions -were instructed of the importance of close follow-up -were told that close follow-up is essential for good health and good outcomes -were given a work/school excuse, if needed -were told that we would call them with final positive culture/lab results MDM / Disposition / Plan MDM The patient was DISCHARGED: Counseled patient regarding radiology results AND suspected diagnosis AND need for follow-up. Discharged home with verbal and written instructions. They were instructed to return as needed for persistent or worsening symptoms or any new concerns. Given a prescription for the following medication(s): Clindamycin Condition at time of disposition: Good SIGNATURE: ADELINE Pedersen (Pa) 03/07/18 2305 [facility] XR CHEST 2V FRONTAL/LATon XR CHEST 2V FRONTAL/LAT * * *Final Repor t* * * DATE OF EXAM: Mar 07 2018 10:45PM LUX [id number] - XR CHEST 2V FRONTAL/LAT / PROCEDURE REASON: Cough, new onset * * * * Physician Interpretation * * * * EXAMINATION: CHEST RADIOGRAPH (2 VIEW FRONTAL and LATERAL) CLINICAL HISTORY: Cough, new onset, MQ: XC2_5 Comparison: 08/25/2017, 2035 hours RESULT: Lines, tubes, and devices: None. Lungs and pleura: No consolidation. No lung mass. No pleural effusion. Negative for pneumothorax Cardiomediastinal silhouette: Normal cardiomediastinal silhouette. IMPRESSION: NO ACTIVE CARDIOPULMONARY DISEASE IS IDENTIFIED Agency Recruiter: DANIEL Transcribe Date/Time: Mar 07 2018 10:47P Dictated by : WINTER STEELE MD This examination was interpreted and the report reviewed and electronically signed by: WINTER STEELE MD on Mar 07 2018 10:48PM EST [id number] N [facility] Vital Signs Date Time Vital Sign Value Performing Clinician Facility 08-13-2024 13:32-0400 Diastolic blood pressure 62 mm[Hg] Felecia Ely MD Work Phone: [facility] 08-13-2024 13:32-0400 Heart rate 60 /min Felecia Ely MD Work Phone: [facility] 08-13-2024 13:32-0400 SaO2% (BldA) [Mass fraction] 98 % Felecia Ely MD Work Phone: [facility] 08-13-2024 13:32-0400 Systolic blood pressure 124 mm[Hg] Felecia Ely MD Work Phone: [facility] 07-11-2024 14:24-0400 Diastolic blood pressure 72 mm[Hg] Felecia Ely MD Work Phone: [facility] 07-11-2024 14:24-0400 Heart rate 82 /min Felecia Ely MD Work Phone: [facility] 07-11-2024 14:24-0400 SaO2% (BldA) [Mass fraction] 95 % Felecia Ely MD Work Phone: [facility] 07-11-2024 14:24-0400 Systolic blood pressure 123 mm[Hg] Felecia Ely MD Work Phone: [facility] 07-03-2024 04:19-0400 Body temperature 97.7 [degF] Dr. Moses Vaz DO Work Phone: [facility] 07-03-2024 04:19-0400 Diastolic blood pressure 76 mm[Hg] Dr. Moses Vaz DO Work Phone: [facility] 07-03-2024 04:19-0400 Heart rate 77 /min Dr. Moses Vaz DO Work Phone: [facility] 07-03-2024 04:19-0400 Respiratory rate 16 /min Dr. Moses Vaz DO Work Phone: [facility] 07-03-2024 04:19-0400 SaO2% (BldA) [Mass fraction] 98 % Dr. Moses Vaz DO Work Phone: [facility] 07-03-2024 04:19-0400 Systolic blood pressure 128 mm[Hg] Dr. Moses Vaz DO Work Phone: [facility] 07-03-2024 00:38-0400 Body mass index (BMI) [Ratio] 31.6 kg/m2 Dr. Moses Vaz DO Work Phone: [facility] 07-03-2024 00:38-0400 Body weight 86.[address] Moses Vaz DO Work Phone: [facility] 07-03-2024 00:06-0400 Body height 165.[address] Moses Vaz DO Work Phone: [facility] 12-02-2023 10:59-0400 Diastolic blood pressure 74 mm[Hg] Kirill Viera MD Work Phone: [facility] 12-02-2023 10:59-0400 Heart rate 64 /min Kirill Viera MD Work Phone: [facility] 12-02-2023 10:59-0400 Respiratory rate 16 /min Kirill Viera MD Work Phone: [facility] 12-02-2023 10:59-0400 SaO2% (BldA) [Mass fraction] 100 % Kirill Viera MD Work Phone: [facility] 12-02-2023 10:59-0400 Systolic blood pressure 129 mm[Hg] Kirill Viera MD Work Phone: [facility] 12-02-2023 09:40-0400 Body height 165.1 cm Kirill Viera MD Work Phone: [facility] 12-02-2023 09:40-0400 Body mass index (BMI) [Ratio] 29.95 kg/m2 Kirill Viera MD Work Phone: [facility] 12-02-2023 09:40-0400 Body temperature 97.3 [degF] Kirill Viera MD Work Phone: [facility] 12-02-2023 09:40-0400 Body weight 81.65 kg Kirill Viera MD Work Phone: [facility] 11-04-2023 09:36-0400 Body height 165.1 cm Bev Ríos LDR RN.ADMINISTRATIVE RESOURCES ASSOCIATE Work Phone: [facility] 11-04-2023 09:36-0400 Body mass index (BMI) [Ratio] 28.89 kg/m2 Bev Michoacano LDR RN.ADMINISTRATIVE RESOURCES ASSOCIATE Work Phone: [facility] 11-04-2023 09:36-0400 Body weight 78.74 kg Bev Ríos LDR RN.ADMINISTRATIVE RESOURCES ASSOCIATE Work Phone: [facility] 11-04-2023 09:36-0400 Diastolic blood pressure 64 mm[Hg] Bev Ríos LDR RN.ADMINISTRATIVE RESOURCES ASSOCIATE Work Phone: [facility] 11-04-2023 09:36-0400 Heart rate 64 /min Bevvioletta Ríos LDR RN.ADMINISTRATIVE RESOURCES ASSOCIATE Work Phone: [facility] 11-04-2023 09:36-0400 Systolic blood pressure 104 mm[Hg] Bev Ríos LDR RN.ADMINISTRATIVE RESOURCES ASSOCIATE Work Phone: [facility] 10-17-2023 14:38-0400 Body mass index (BMI) [Ratio] 28.62 kg/m2 Felecia Ely MD Work Phone: [facility] 10-17-2023 14:38-0400 Body weight 78.02 kg Felecia Ely MD Work Phone: [facility] 10-17-2023 14:38-0400 Diastolic blood pressure 61 mm[Hg] Felecia Ely MD Work Phone: [facility] 10-17-2023 14:38-0400 Heart rate 71 /min Felecia Ely MD Work Phone: [facility] 10-17-2023 14:38-0400 SaO2% (BldA) [Mass fraction] 97 % Felecia Ely MD Work Phone: [facility] 10-17-2023 14:38-0400 Systolic blood pressure 121 mm[Hg] Felecia Ely MD Work Phone: [facility] 08-29-2023 14:02-0400 Diastolic blood pressure 60 mm[Hg] Felecia Ely MD Work Phone: [facility] 08-29-2023 14:02-0400 Heart rate 65 /min Felecia Ely MD Work Phone: [facility] 08-29-2023 14:02-0400 SaO2% (BldA) [Mass fraction] 98 % Felecia Ely MD Work Phone: [facility] 08-29-2023 14:02-0400 Systolic blood pressure 118 mm[Hg] Felecia Ely MD Work Phone: [facility] 07-19-2023 13:21-0400 Diastolic blood pressure 68 mm[Hg] Felecia Ely MD Work Phone: [facility] 07-19-2023 13:21-0400 Heart rate 93 /min Felecia Ely MD Work Phone: [facility] 07-19-2023 13:21-0400 SaO2% (BldA) [Mass fraction] 99 % Felecia Ely MD Work Phone: [facility] 07-19-2023 13:21-0400 Systolic blood pressure 124 mm[Hg] Felecia Ely MD Work Phone: [facility] 06-28-2023 13:18-0500 Diastolic blood pressure 66 mm[Hg] Felecia Ely MD Work Phone: [facility] 06-28-2023 13:18-0500 Heart rate 82 /min Felecia Ely MD Work Phone: [facility] 06-28-2023 13:18-0500 SaO2% (BldA) [Mass fraction] 98 % Felecia Ely MD Work Phone: [facility] 06-28-2023 13:18-0500 Systolic blood pressure 124 mm[Hg] Felecia Ely MD Work Phone: [facility] 06-20-2023 20:57-0500 Diastolic blood pressure 82 mm[Hg] Jayne Kerns MD Other Phone: [facility] 06-20-2023 20:57-0500 Heart rate 93 /min Jayne Kerns MD Other Phone: [facility] 06-20-2023 20:57-0500 Systolic blood pressure 141 mm[Hg] Jayne Kerns MD Other Phone: [facility] 06-20-2023 18:36-0500 Body temperature 97.9 [degF] Jayne Kerns MD Other Phone: [facility] 06-20-2023 18:36-0500 Respiratory rate 12 /min Jayne Kerns MD Other Phone: [facility] 06-20-2023 18:36-0500 SaO2% (BldA) [Mass fraction] 97 % Jayne Kerns MD Other Phone: [facility] 05-16-2023 14:10-0500 Diastolic blood pressure 70 mm[Hg] Felecia Ely MD Work Phone: [facility] 05-16-2023 14:10-0500 Heart rate 87 /min Felecia Ely MD Work Phone: [facility] 05-16-2023 14:10-0500 SaO2% (BldA) [Mass fraction] 98 % Felecia Ely MD Work Phone: [facility] 05-16-2023 14:10-0500 Systolic blood pressure 120 mm[Hg] Felecia Ely MD Work Phone: [facility] 11-03-2022 10:53-0400 Body temperature 97 [degF] Katie Vick MD Work Phone: [facility] 11-03-2022 10:53-0400 Body weight 96.89 kg Katie Vick MD Work Phone: [facility] 11-03-2022 10:53-0400 Diastolic blood pressure 71 mm[Hg] Katie Vick MD Work Phone: [facility] 11-03-2022 10:53-0400 Heart rate 77 /min Katie Vick MD Work Phone: [facility] 11-03-2022 10:53-0400 Systolic blood pressure 123 mm[Hg] Katie Vick MD Work Phone: [facility] 06-28-2022 13:48-0500 Diastolic blood pressure 78 mm[Hg] Felecia Ely MD Work Phone: [facility] 06-28-2022 13:48-0500 Heart rate 76 /min Felecia Ely MD Work Phone: [facility] 06-28-2022 13:48-0500 SaO2% (BldA) [Mass fraction] 98 % Felecia Ely MD Work Phone: [facility] 06-28-2022 13:48-0500 Systolic blood pressure 136 mm[Hg] Felecia Ely MD Work Phone: [facility] 05-31-2022 15:40-0500 Body weight 104.6 kg Fiorella Alvarado APRN, CNP Work Phone: [facility] Work Phone: 05-31-2022 15:40-0500 Diastolic blood pressure 72 mm[Hg] Fiorellajyoti Alvarado APRN, CNP Work Phone: [place] [facility] [employer] Work Phone: 05-31-2022 15:40-0500 Heart rate 70 /min Fiorellajyoti Alvarado APRN, CNP Work Phone: [facility] [employer] Work Phone: 05-31-2022 15:40-0500 Systolic blood pressure 128 mm[Hg] Fiorellajyoti Alvarado APRN,ORLIN Work Phone: [facility] [employer] Work Phone: 01-05-2022 14:37-0400 Diastolic blood pressure 70 mm[Hg] Felecia Ely MD Work Phone: [facility] 01-05-2022 14:37-0400 Heart rate 80 /min Felecia Ely MD Work Phone: [facility] 01-05-2022 14:37-0400 SaO2% (BldA) [Mass fraction] 98 % Felecia Ely MD Work Phone: [facility] 01-05-2022 14:37-0400 Systolic blood pressure 130 mm[Hg] Felecia Ely MD Work Phone: [facility] 11-10-2021 14:49-0400 Diastolic blood pressure 80 mm[Hg] Felecia Ely MD Work Phone: [facility] 11-10-2021 14:49-0400 Heart rate 78 /min Felecia Ely MD Work Phone: [facility] 11-10-2021 14:49-0400 SaO2% (BldA) [Mass fraction] 98 % Felecia Ely MD Work Phone: [facility] 11-10-2021 14:49-0400 Systolic blood pressure 129 mm[Hg] Felecia Ely MD Work Phone: [facility] Encounters Encounter Date Encounter Type Care Provider Facility Start: 11-30-2024 End: 12-21-2024 [facility] Start: 10-25-2024 End: 10-29-2024 Refill Felecia Ely MD Work Phone: Felecia Ely MD Comment on above: Refill Request Start: 10-20-2024 End: 10-20-2024 Emergency department patient visit FELECIA ELY Facility:[facility] Start: 10-01-2024 End: 10-01-2024 Refill Felecia Ely MD Work Phone: Felecia Ely MD Comment on above: Refill Request Start: 08-13-2024 End: 08-13-2024 Orders Only Felecia Ely MD Work Phone: Felecia Ely MD Comment on above: Encounter for screen ing mammogram for malignant neoplasm of breast (Primary Dx) Primary hypertension (Primary Dx); Dietary counseling; Encounter for screening mammogram for malignant neoplasm of breast Start: 07-24-2024 End: 07-24-2024 Refill Felecia Ely MD Work Phone: Felecia Ely MD Comment on above: Refill Request Start: 07-17-2024 End: 07-17-2024 Refill Felecia Ely MD Work Phone: Felecia Ely MD Comment on above: Refill Request Start: 07-11-2024 End: 07-11-2024 Orders Only Felecia Ely MD Work Phone: Felecia Ely MD Comment on above: Encounter for screen ing mammogram for malignant neoplasm of breast (Primary Dx) Refill Request Cannabis dependence (HCC) (Primary Dx); Nausea and vomiting, unspecified vomiting type; Screening for depression; Severe depressed bipolar I disorder with psychotic features (HCC); Dietary counseling; Chronic obstructive pulmonary disease, unspecified COPD type (HCC); Primary hypertension; Encounter for screening mammogram for malignant neoplasm of breast Start: 07-03-2024 End: 07-03-2024 Emergency department patient visit Dr. Moses Vaz DO Work Phone: -Emergency Department Work Phone: Start: 02-16-2024 End: 02-17-2024 ambulatory FELECIA ELY Facility:[facility] Start: 01-05-2024 End: 01-05-2024 Refill Felecia Ely MD Work Phone: Felecia Ely MD Comment on above: Refill Request Start: 12-06-2023 Refill Felecia Ely MD Work Phone: Felecia Ely MD Comment on above: Refill Request Start: 12-02-2023 End: 12-02-2023 Orders Only Kirill Causey MD Work Phone: [facility] Comment on above: Problems with swallo wing and mastication (Primary Dx) Nausea and vomiting, unspecified vomiting type [R11.2] Start: 11-04-2023 End: 11-04-2023 Patient encounter procedure Bev Ríos APRN.ADMINISTRATIVE RESOURCES ASSOCIATE [facility] Comment on above: Nausea and vomiting, unspecified vomiting type (Primary Dx); Abdominal pain, right upper quadrant Start: 11-01-2023 End: 11-01-2023 Office outpatient visit 25 minutes Fiorella Alvarado APRN,ADMINISTRATIVE RESOURCES ASSOCIATE Work Phone: [facility] Comment on above: Bipolar II disorder (HCC-CMS) (Primary Dx); Generalized anxiety disorder; Panic disorder; Posttraumatic stress disorder; Grief Start: 10-17-2023 End: 10-17-2023 Office outpatient visit 25 minutes Felecia Ely MD Work Phone: Felecia Ely MD Comment on above: Encounter for screen ing mammogram for malignant neoplasm of breast (Primary Dx); Cannabis dependence (HCC); Essential hypertension; Borderline personality disorder (HCC); BORA (acute kidney injury) (HCC); Mixed hyperlipidemia Start: 10-17-2023 Orders Only Felecia Ely MD Work Phone: Felecia Ely MD Comment on above: Encounter for screen ing mammogram for malignant neoplasm of breast (Primary Dx) Start: 09-29-2023 Refill Katie Vick MD Work Phone: Rheumatology Comment on above: Refill Request Start: 09-26-2023 Admission to [facility] Jeremias Calverterson OPERATING ROOM TECHNOLOGIST Work Phone: [facility] Start: 09-26-2023 ambulatory Jeremias Aracelis valladares OPERATING ROOM TECHNOLOGIST Work Phone: Behavioral Health Intake Comment on above: Psychiatric Problem Start: 09-14-2023 Refill Felecia Ely MD Work Phone: Felecia Ely MD Comment on above: Refill Request Start: 08-29-2023 End: 08-29-2023 Patient encounter procedure Felecia Ely MD Work Phone: Felecia Ely MD Comment on above: Essential hypertensi on (Primary Dx); Borderline personality disorder (HCC); Dietary counseling; Encounter for screening mammogram for malignant neoplasm of breast Start: 08-08-2023 Refill Felecia Ely MD Work Phone: Felecia Ely MD Comment on above: Refill Request Start: 07-21-2023 Letter encounter Kourtney Lemos RN [facility] Start: 07-21-2023 Telephone encounter Kourtney Lemos RN [facility] Comment on above: APPOINTMENT SCHEDULI NG Start: 07-19-2023 Refill Felecia Ely MD Work Phone: Felecia Ely MD Comment on above: Refill Request Start: 07-19-2023 End: 07-19-2023 Office outpatient visit 40 minutes Felecia Ely MD Work Phone: Felecia Ely MD Comment on above: Dizziness (Primary D x); Essential hypertension; Dietary counseling; Hypokalemia; Encounter for screening mammogram for malignant neoplasm of breast; Need for vaccination; Nausea and vomiting, unspecified vomiting type Start: 07-14-2023 End: 07-14-2023 Subsequent hospital visit by physician Mri [facility] 2 (I-Stat/3t) Work Phone: Radiology Comment on above: Dizziness [R42] Start: 06-28-2023 End: 06-28-2023 Office outpatient visit 40 minutes Felecia Ely MD Work Phone: Felecia Ely MD Comment on above: Dizziness (Primary D x); Essential hypertension; Dietary counseling; Mild intermittent asthma without complication; BORA (acute kidney injury) (HCC); Mixed hyperlipidemia Start: 06-20-2023 End: 06-20-2023 Emergency department patient visit UNKNOWN PROVIDER Facility:[facility] Start: 06-20-2023 End: 06-20-2023 Emergency department patient visit Jayne Kerns MD Other Phone: [facility] Start: 05-16-2023 End: 05-16-2023 Office outpatient visit 25 minutes Felecia Ely MD Work Phone: Felecia Ely MD Comment on above: Essential hypertensi on (Primary Dx); Dietary counseling; Mild intermittent asthma without complication; BORA (acute kidney injury) (HCC); Bipolar 1 disorder (HCC); Mixed hyperlipidemia Start: 01-07-2023 End: 01-07-2023 ambulatory FELECIA ELY Facility:[facility] Start: 01-07-2023 End: 01-07-2023 Subsequent hospital visit by physician Mri [facility] [employer] [facility] (I-Stat/1.5t/3t) Work Phone: MRI Q Comment on above: 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) [I63.513] Start: 11-04-2022 End: 11-04-2022 Office outpatient visit 15 minutes Fiorella Alvarado APRN, CNP Work Phone: [facility] Comment on above: Bipolar II disorder (HCC-CMS); Generalized anxiety disorder; Panic disorder; Posttraumatic stress disorder Start: 11-03-2022 End: 11-04-2022 ambulatory KATIE VICK Facility:[facility] Start: 11-03-2022 End: 11-03-2022 Office outpatient visit 25 minutes Katie Vick MD Work Phone: Rheumatology Comment on above: 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, 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 ) (Primary Dx); 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); History of CVA (cerebrovascular accident); On mycophenolate mofetil therapy Start: 10-25-2022 Refill Katie Vick MD Work Phone: Rheumatology Start: 10-19-2022 Refill Felecia Ely MD Work Phone: Felecia Ely MD Comment on above: Refill Request Start: 10-11-2022 Refill Felecia Ely MD Work Phone: Felecia Ely MD Comment on above: Refill Request Start: 10-04-2022 Refill Katie Vick MD Work Phone: Rheumatology Comment on above: labs; Refill Request Start: 09-02-2022 Refill Felecia Ely MD Work Phone: Felecia Ely MD Comment on above: Refill Request Start: 08-30-2022 Refill Felecia Ely MD Work Phone: Felecia Ely MD Comment on above: Refill Request Start: 08-04-2022 Refill Felecia Ely MD Work Phone: Felecia Ely MD Comment on above: Refill Request Start: 07-12-2022 End: 07-12-2022 Office outpatient visit 15 minutes Fiorella Alvarado APRN, CNP Work Phone: [facility] Comment on above: Bipolar II disorder (HCC-CMS); Generalized anxiety disorder; Panic disorder; Posttraumatic stress disorder Start: 07-11-2022 Refill Felecia Ely MD Work Phone: Felecia Ely MD Comment on above: Refill Request Start: 03-14-2023 Orders Only Felecia Ely MD Work Phone: Felecia Ely MD Comment on above: Fatigue, unspecified type; Vitamin D deficiency; Diabetes mellitus type 1, controlled, without complications ([facility]) Start: 06-28-2022 End: 06-28-2022 Patient encounter procedure Felecia Ely MD Work Phone: Felecia Ely MD Comment on above: Essential hypertensi on (Primary Dx); Cannabis dependence (HCC); Dietary counseling; Mild intermittent asthma without complication Start: 06-21-2022 ambulatory Ebonie Bullard a RT(R) Radiology Comment on above: Radiology XR Start: 06-21-2022 Patient encounter procedure Ebonie Moreno RT(R) [facility] Start: 06-21-2022 End: 06-21-2022 Emergency department patient visit JARET CUI Facility:[facility] Start: 06-14-2022 Refill Felecia Ely MD Work Phone: Felecia Ely MD Comment on above: Refill Request Start: 06-03-2022 Refill Felecia Ely MD Work Phone: Felecia Ely MD Comment on above: Refill Request Start: 05-31-2022 End: 05-31-2022 Office outpatient visit 15 minutes Fiorella Alvarado APRN, CNP Work Phone: [facility] Comment on above: Bipolar II disorder ([facility]); Generalized anxiety disorder; Panic disorder; Posttraumatic stress disorder Start: 04-09-2022 Refill Felecia Ely MD Work Phone: Felecia Ely MD Comment on above: Refill Request Start: 01-25-2022 Refill Felecia Ely MD Work Phone: Felecia Ely MD Comment on above: Refill Request Start: 01-15-2022 End: 01-15-2022 ambulatory Tita Paredes [employer] Comment on above: Radiology Mammogram Start: 01-15-2022 Patient encounter procedure Tita Paredes [employer]amm[employer] [facility] Start: 01-15-2022 End: 01-15-2022 Subsequent hospital visit by physician Screen/Diagnostic Mammo Palak Work Phone: Mammography Comment on above: Encounter for screen ing for malignant neoplasm of breast, unspecified screening modality [Z12.39] Start: 01-05-2022 End: 01-05-2022 Office outpatient visit 25 minutes Felecia Ely MD Work Phone: Felecia Ely MD Comment on above: Essential hypertensi on (Primary Dx); Cannabis dependence (HCC); Unspecified mood (affective) disorder (HCC); Dietary counseling; Cerebrovascular accident (CVA) due to stenosis of left middle cerebral artery (HCC); Mild intermittent asthma without complication Start: 11-23-2021 Refill Felecia Ely MD Work Phone: Felecia Ely MD Comment on above: Refill Request Start: 11-17-2021 Refill Felecia Ely MD Work Phone: Felecia Ely MD Comment on above: Refill Request Start: 11-10-2021 End: 11-10-2021 Orders Only Felecia Ely MD Work Phone: Felecia Ely MD Comment on above: Fatigue, unspecified type (Primary Dx); Hyperlipidemia, unspecified hyperlipidemia type; Vitamin D deficiency; Encounter for screening for malignant neoplasm of breast, unspecified screening modality Essential hypertensi on (Primary Dx); Dietary counseling; Mild intermittent asthma without complication; Right hip pain Start: 11-05-2021 Refill Felecia Ely MD Work Phone: Felecia Ely MD Comment on above: Refill Request Start: 08-24-2021 Refill Katie Vick MD Work Phone: Rheumatology Comment on above: Refill Request Procedures Date Procedure Procedure Detail Performing Clinician Start: 11-30-2024 End: 11-30-2024 Psychotherapy w/patient 60 minutes Bipolar II disorder ([facility]-HCC) Ramses Allen [facility] Work Phone: Comment on above: Arrived Start: 11-16-2024 End: 11-16-2024 Psychotherapy w/patient 60 minutes Bipolar II disorder ([facility] & [facility]-HCC) Ramses Allen [employer] Work Phone: Comment on above: Arrived Start: 10-19-2024 End: 10-19-2024 Psychotherapy w/patient 45 minutes Bipolar II disorder (CMS & [facility]-HCC) Ramses Allen [employer] Work Phone: Comment on above: Arrived Start: 10-05-2024 End: 10-05-2024 Psychotherapy w/patient 60 minutes Bipolar II disorder (HCC-CMS) Ramses Allen [employer] Work Phone: Comment on above: Bipolar II disorder (HCC-CMS) (Primary D x); Panic disorder Start: 08-31-2024 End: 08-31-2024 Psychotherapy w/patient 60 minutes Bipolar II disorder (HCC-CMS) Ramses Allen [employer] Work Phone: Comment on above: Bipolar II disorder (HCC-CMS) (Primary D x); Panic disorder Start: 08-17-2024 End: 08-17-2024 Psychotherapy w/patient 60 minutes Bipolar II disorder (HCC-CMS) Ramses Allen [employer] Work Phone: Comment on above: Bipolar II disorder (HCC-CMS) (Primary D x); Panic disorder Start: 07-13-2024 End: 07-13-2024 Psychotherapy w/patient 60 minutes Bipolar II disorder (HCC-CMS) Ramses Allen [employer] Work Phone: Comment on above: Bipolar II disorder (HCC-CMS) (Primary D x); Posttraumatic stress disorder; Panic disorder; Unspecified mood (affective) disorder (HCC-CMS); Bereavement reaction; Anxiety Start: 07-11-2024 Adult depression screening assessment Felecia Ely MD Work Phone: Start: 07-03-2024 Computed tomography of abdomen and pelvis with intravenous contrast Dr. Moses Vaz DO Work Phone: Start: 06-22-2024 End: 06-22-2024 Psychotherapy w/patient 30 minutes Bipolar II disorder (HCC-CMS) Ramses Allen [employer] Work Phone: Comment on above: Bipolar II disorder (HCC-CMS) (Primary D x); Posttraumatic stress disorder; Panic disorder; Unspecified mood (affective) disorder (HCC-CMS); Bereavement reaction; Anxiety Start: 06-08-2024 End: 06-08-2024 Psychotherapy w/patient 60 minutes Bipolar II disorder (HCC-CMS) Ramses Allen [employer] Work Phone: Comment on above: Bipolar II disorder (HCC-CMS) (Primary D x); Posttraumatic stress disorder; Panic disorder; Unspecified mood (affective) disorder (HCC-CMS); Bereavement reaction; Anxiety Start: 05-25-2024 End: 05-25-2024 Psychotherapy w/patient 45 minutes Bipolar II disorder (HCC-CMS) Ramses Allen [employer] Work Phone: Comment on above: Bipolar II disorder (HCC-CMS) (Primary D x); Posttraumatic stress disorder; Panic disorder; Unspecified mood (affective) disorder (HCC-CMS); Bereavement reaction; Anxiety Start: 05-11-2024 End: 05-11-2024 Psychotherapy w/patient 60 minutes Bipolar II disorder (HCC-CMS) Ramses Allen [employer] Work Phone: Comment on above: Bipolar II disorder (HCC-CMS) (Primary D x); Posttraumatic stress disorder; Panic disorder; Unspecified mood (affective) disorder (HCC-CMS); Bereavement reaction; Anxiety Start: 04-27-2024 End: 04-27-2024 Psychotherapy w/patient 45 minutes Bipolar II disorder (HCC-CMS) Ramses Allen [employer] Work Phone: Comment on above: Bipolar II disorder (HCC-CMS) (Primary D x); Posttraumatic stress disorder; Panic disorder; Unspecified mood (affective) disorder (HCC-CMS); Bereavement reaction; Anxiety Start: 03-09-2024 End: 03-09-2024 Psychotherapy w/patient 60 minutes Bipolar II disorder (HCC-CMS) Ramses Allen [employer] Work Phone: Comment on above: Bipolar II disorder (HCC-CMS) (Primary D x); Posttraumatic stress disorder; Panic disorder; Unspecified mood (affective) disorder (HCC-CMS); Bereavement reaction; Anxiety Start: 03-02-2024 End: 03-02-2024 Psychotherapy w/patient 60 minutes Bipolar II disorder (HCC-CMS) Ramses Allen [facility] Work Phone: Comment on above: Bipolar II disorder (HCC-CMS) (Primary D x); Posttraumatic stress disorder; Panic disorder; Unspecified mood (affective) disorder (HCC-CMS); Bereavement reaction; Anxiety Start: 02-24-2024 End: 02-24-2024 Psychotherapy w/patient 30 minutes Bipolar II disorder (HCC-CMS) Ramses Allen [facility] Work Phone: Comment on above: Bipolar II disorder (HCC-CMS) (Primary D x); Posttraumatic stress disorder; Panic disorder; Unspecified mood (affective) disorder (HCC-CMS); Bereavement reaction; Anxiety Start: 02-17-2024 End: 02-17-2024 Psychotherapy w/patient 30 minutes Bipolar II disorder (HCC-CMS) Ramses Allen [facility] Work Phone: Comment on above: Bipolar II disorder (HCC-CMS) (Primary D x); Posttraumatic stress disorder; Panic disorder; Unspecified mood (affective) disorder (HCC-CMS); Bereavement reaction; Anxiety Start: 02-10-2024 End: 02-10-2024 Psychotherapy w/patient 30 minutes Bipolar II disorder (HCC-CMS) Ramses Allen [facility] Work Phone: Comment on above: Bipolar II disorder (HCC-CMS) (Primary D x); Posttraumatic stress disorder; Panic disorder; Unspecified mood (affective) disorder (HCC-CMS); Bereavement reaction; Anxiety Start: 02-03-2024 End: 02-03-2024 Psychotherapy w/patient 60 minutes Bipolar II disorder (HCC-CMS) Ramses Allen [facility] Work Phone: Comment on above: Bipolar II disorder (HCC-CMS) (Primary D x); Posttraumatic stress disorder; Panic disorder; Unspecified mood (affective) disorder (HCC-CMS); Bereavement reaction; Anxiety Start: 01-20-2024 End: 01-20-2024 Psychotherapy w/patient 45 minutes Bipolar II disorder (HCC-CMS) Ramses Allen [facility] Work Phone: Comment on above: Bipolar II disorder (HCC-CMS) (Primary D x); Posttraumatic stress disorder; Panic disorder; Unspecified mood (affective) disorder (HCC-CMS); Bereavement reaction; Anxiety Start: 01-06-2024 End: 01-06-2024 Psychotherapy w/patient 30 minutes Bipolar II disorder (HCC-CMS) Ramses Allen [facility] Work Phone: Comment on above: Bipolar II disorder (HCC-CMS) (Primary D x); Posttraumatic stress disorder; Panic disorder; Unspecified mood (affective) disorder (HCC-CMS); Bereavement reaction; Anxiety Start: 12-23-2023 End: 12-23-2023 Psychotherapy w/patient 30 minutes Bipolar II disorder (HCC-CMS) Ramses Allen [facility] Work Phone: Comment on above: Bipolar II disorder (HCC-CMS) (Primary D x); Posttraumatic stress disorder; Panic disorder; Unspecified mood (affective) disorder (HCC-CMS); Bereavement reaction; Anxiety Start: 12-12-2023 End: 12-12-2023 Psychotherapy w/patient 60 minutes Bipolar II disorder (HCC-CMS) Ramses Allen [facility] Work Phone: Comment on above: Bipolar II disorder (HCC-CMS) (Primary D x); Posttraumatic stress disorder; Panic disorder; Unspecified mood (affective) disorder (HCC-CMS); Bereavement reaction; Anxiety Start: 12-02-2023 Colonoscopy flx dx w/collj spec when pfrmd Bev Ríos APRN.ADMINISTRATIVE RESOURCES ASSOCIATE Work Phone: Start: 12-02-2023 Esophagogastroduodenoscopy transoral diagnostic Bev Ríos APRN.CNP Work Phone: Start: 11-18-2023 End: 11-18-2023 Psychotherapy w/patient 60 minutes Bipolar II disorder (HCC-CMS) Ramses Allen [facility] Work Phone: Comment on above: Bipolar II disorder (HCC-CMS) (Primary D x); Posttraumatic stress disorder; Panic disorder; Unspecified mood (affective) disorder ([facility]-CMS); Bereavement reaction; Anxiety Start: 10-14-2023 End: 10-14-2023 Psychotherapy w/patient 45 minutes Bipolar II disorder ([facility]-CMS) Ramses Allen [facility] Work Phone: Comment on above: Bipolar II disorder ([facility]-CMS) (Primary D x); Posttraumatic stress disorder; Panic disorder; Unspecified mood (affective) disorder ([facility]-CMS); Bereavement reaction; Anxiety Start: 09-23-2023 End: 09-23-2023 Psychotherapy w/patient 60 minutes Bipolar II disorder ([facility]-CMS) Alejandra MCCARTHY Work Phone: Comment on above: Bipolar II disorder ([facility]-CMS) (Primary D x); Posttraumatic stress disorder; Panic disorder; Unspecified mood (affective) disorder ([facility]-CMS); Bereavement reaction; Anxiety Start: 09-16-2023 End: 09-16-2023 Psychotherapy w/patient 60 minutes Bipolar II disorder ([facility]) Ramses Allen [facility] Work Phone: Comment on above: Bipolar II disorder ([facility]) (Primary D x); Posttraumatic stress disorder; Panic disorder; Unspecified mood (affective) disorder ([facility]-CMS); Bereavement reaction; Anxiety Start: 09-07-2023 End: 09-07-2023 Psychotherapy w/patient 30 minutes Anxiety Ramses Allen [facility] Work Phone: Comment on above: Anxiety (Primary Dx); Bipolar II disorder ([facility]-CMS); Panic disorder Start: 07-29-2023 End: 07-29-2023 Psychotherapy w/patient 45 minutes Bereavement reaction Ramses Allen [facility] Work Phone: Comment on above: Bereavement reaction (Primary Dx); Anxiety Start: 07-19-2023 End: 07-19-2023 Psychotherapy w/patient 60 minutes Bereavement reaction Veda CARDOZA Work Phone: Comment on above: Bereavement reaction (Primary Dx); Anxiety Start: 07-15-2023 End: 07-15-2023 Psychotherapy w/patient 60 minutes Bipolar II disorder ([facility]) Ramses Lia [facility] Work Phone: Comment on above: Bipolar II disorder ([facility]) (Primary D x); Posttraumatic stress disorder; Panic disorder Start: 07-14-2023 Mri brain brain stem w/o contrast material Felecia Ely MD Work Phone: Start: 07-12-2023 Lipid 1996 panel - Serum or Plasma Fiorella Alvarado APRN, CNP Work Phone: Start: 07-07-2023 End: 07-07-2023 Psychotherapy w/patient 30 minutes Bereavement reaction Veda CARDOZA Work Phone: Comment on above: Bereavement reaction (Primary Dx); Anxiety Start: 07-01-2023 End: 07-01-2023 Psychotherapy w/patient 60 minutes Anxiety Ramses Allen [facility] Work Phone: Comment on above: Anxiety (Primary Dx); Bipolar II disorder ([facility]); Panic disorder Start: 06-20-2023 EXTRA TUBE Jayne Kerns MD Other Phone: Start: 06-20-2023 LAVENDER TOP TUBE, BLOOD Jayne Kerns MD Other Phone: Start: 06-20-2023 LIGHT BLUE TOP TUBE, BLOOD Jayne Kerns MD Other Phone: Start: 06-20-2023 Ct cervical spine w/o contrast material Jayne Kerns MD Other Phone: Start: 06-20-2023 Ct head/brain w/o contrast material Jayne Kerns MD Other Phone: Start: 06-20-2023 Assay of lactate Jayne Kerns MD Other Phone: Start: 06-20-2023 Hepatic function panel Jayne Kerns MD Other Phone: Start: 06-14-2023 End: 06-14-2023 Family psychotherapy w/patient present 50 mins Bereavement reaction Veda CARDOZA Work Phone: Comment on above: Bereavement reaction (Primary Dx); Anxiety Start: 06-14-2023 End: 06-14-2023 Psychotherapy w/patient 60 minutes Bereavement reaction Veda CARDOZA Work Phone: Comment on above: Bereavement reaction (Primary Dx); Anxiety Start: 06-14-2023 End: 06-14-2023 Psychotherapy w/patient 45 minutes Anxiety Ramsesjenni Allen [employer] Work Phone: Comment on above: Anxiety (Primary Dx); Bipolar II disorder ([facility]-CMS); Panic disorder Start: 05-17-2023 End: 05-17-2023 Psychotherapy w/patient 60 minutes Bereavement reaction Veda CARDOZA Work Phone: Comment on above: Bereavement reaction (Primary Dx); Anxiety Start: 05-13-2023 End: 05-13-2023 Psychotherapy w/patient 60 minutes Anxiety Ramses Allen [employer] Work Phone: Comment on above: Anxiety (Primary Dx); Bipolar II disorder ([facility]-CMS); Panic disorder Start: 05-12-2023 End: 05-12-2023 Psychotherapy w/patient 60 minutes Bereavement reaction Veda CARDOZA Work Phone: Comment on above: Bereavement reaction (Primary Dx); Anxiety Start: 05-03-2023 End: 05-03-2023 Psychotherapy w/patient 60 minutes Posttraumatic stress disorder Veda CARDOZA Work Phone: Comment on above: Posttraumatic stress disorder (Primary D x) Start: 04-29-2023 End: 04-29-2023 Psychotherapy w/patient 30 minutes Bipolar II disorder ([facility]-CMS) Ramsesjenni Allen [employer] Work Phone: Comment on above: Bipolar II disorder ([facility]-CMS) (Primary D x); Posttraumatic stress disorder; Panic disorder Start: 04-08-2023 End: 04-08-2023 Psychotherapy w/patient 30 minutes Panic disorder Ramsesjenni Millerjorge [employer] Work Phone: Comment on above: Panic disorder (Primary Dx); Posttraumatic stress disorder; Bipolar II disorder (HCC-CMS) Start: 04-01-2023 End: 04-01-2023 Psychotherapy w/patient 45 minutes Bipolar I disorder, current or most recent episode depressed, in partial remission (HCC-CMS) Ramses Allen [employer] Work Phone: Comment on above: Bipolar I disorder, current or most rece nt episode depressed, in partial remission (HCC-CMS) (Primary Dx); Generalized anxiety disorder Start: 03-29-2023 End: 03-29-2023 Psychotherapy w/patient 60 minutes Posttraumatic stress disorder Veda LASSITERW Work Phone: Comment on above: Posttraumatic stress disorder (Primary D x) Start: 03-25-2023 End: 03-25-2023 Psychotherapy w/patient 30 minutes Panic disorder Ramses Allen [facility] Work Phone: Comment on above: Panic disorder (Primary Dx); Posttraumatic stress disorder; Bipolar II disorder ([facility]-CMS) Start: 03-04-2023 End: 03-04-2023 Psychotherapy w/patient 30 minutes Bipolar II disorder ([facility]) Ramses Allen [facility] Work Phone: Comment on above: Bipolar II disorder (HCC-CMS) (Primary D x); Generalized anxiety disorder; Panic disorder; Posttraumatic stress disorder Start: 02-25-2023 End: 02-25-2023 Psychotherapy w/patient 60 minutes Bipolar II disorder ([facility]-CMS) Ramses Allen [facility] Work Phone: Comment on above: Bipolar II disorder (HCC-CMS) (Primary D x); Panic disorder; Posttraumatic stress disorder Start: 02-11-2023 End: 02-11-2023 Psychotherapy w/patient 60 minutes Bipolar II disorder ([facility]-CMS) Ramses Allen [facility] Work Phone: Comment on above: Bipolar II disorder (HCC-CMS) (Primary D x); Panic disorder; Posttraumatic stress disorder Start: 01-07-2023 Mra head w/o & w/contrast material Katie Vick MD Work Phone: Start: 2022 End: 2022 Psychotherapy w/patient 45 minutes Bipolar II disorder (HCC-CMS) Ramses Allen [employer] Work Phone: Comment on above: Bipolar II disorder (HCC-CMS) (Primary D x); Panic disorder; Posttraumatic stress disorder Start: 11-12-2022 End: 11-12-2022 Psychotherapy w/patient 30 minutes Bipolar II disorder (HCC-CMS) Ramses Allen [employer] Work Phone: Comment on above: Bipolar II disorder (HCC-CMS) (Primary D x); Panic disorder Start: 10-22-2022 End: 10-22-2022 Psychotherapy w/patient 45 minutes Posttraumatic stress disorder Ramsesjenni Allen [employer] Work Phone: Comment on above: Posttraumatic stress disorder (Primary D x); Panic disorder; Bipolar II disorder (HCC-CMS) Start: 10-01-2022 End: 10-01-2022 Psychotherapy w/patient 45 minutes Bipolar II disorder (HCC-CMS) Ramses Allen [employer] Work Phone: Comment on above: Bipolar II disorder (HCC-CMS) (Primary D x); Posttraumatic stress disorder; Panic disorder Start: 09-03-2022 End: 09-03-2022 Psychotherapy w/patient 45 minutes Bipolar II disorder (HCC-CMS) Ramses Allen [employer] Work Phone: Comment on above: Bipolar II disorder (HCC-CMS) (Primary D x); Panic disorder Start: 08-06-2022 End: 08-06-2022 Psychotherapy w/patient 45 minutes Bipolar II disorder (HCC-CMS) Ramses Allen [employer] Work Phone: Comment on above: Bipolar II disorder (HCC-CMS) (Primary D x); Panic disorder; Posttraumatic stress disorder Start: 07-09-2022 End: 07-09-2022 Psychotherapy w/patient 45 minutes Bipolar II disorder (HCC-CMS) Ramses Allen [employer] Work Phone: Comment on above: Bipolar II disorder (HCC-CMS) (Primary D x); Panic disorder; Posttraumatic stress disorder Start: 07-09-2022 Lipid 1996 panel - Serum or Plasma Ramses Allen [employer] Work Phone: Start: 06-11-2022 End: 06-11-2022 Psychotherapy w/patient 60 minutes Bipolar II disorder ([facility]) Ramses Allen [facility] Work Phone: Comment on above: Bipolar II disorder ([facility]) (Primary D x); Panic disorder; Posttraumatic stress disorder Start: 01-15-2022 End: 01-15-2022 Mammography Felecia Ely MD Work Phone: Start: 11-10-2021 Adult depression screening assessment Felecia Ely MD Work Phone: Start: 10-06-2020 Adult depression screening assessment Katie Vick MD Work Phone: Start: 02-19-2019 Lipid 1996 panel - Serum or Plasma Fiorella Alvarado [employer] Work Phone: Start: 08-24-2017 History of cholecystectomy S/P laparoscopic cholecystectomy Katie Vick MD Work Phone: Start: 07-16-2008 Microscopic observation [Identifier] in Cervix by Cyto stain Kourtney Lemos RN Plan of Treatment Date Care Activity Detail Author Start: 2045 Imm-Pneumococcal (4 - PPSV23 if available, else PCV20) Imm-Pneumococcal (4 - PPSV23 if available, else PCV20) [facility] Start: 2045 Imm-Pneumococcal (4 - PPSV23 or PCV20) Imm-Pneumococcal (4 - PPSV23 or PCV20) [facility] Start: 2045 Imm-Pneumococcal (4 of 4 - PPSV23 or PCV20) Imm-Pneumococcal (4 of 4 - PPSV23 or PCV20) [facility] Start: 2045 PNEUMOCOCCAL (4 - PPSV23 if available, else PCV20) PNEUMOCOCCAL (4 - PPSV23 if available, else PCV20) [facility] Start: 2045 PNEUMOCOCCAL (4 - PPSV23 or PCV20) PNEUMOCOCCAL (4 - PPSV23 or PCV20) [facility] Start: 2045 Pneumococcal vaccination [facility] Start: 2030 Imm-Pneumococcal (4 of 4 - PCV20 or PCV21) Imm-Pneumococcal (4 of 4 - PCV20 or PCV21) [facility] Start: 2030 Pneumococcal vaccination [facility] Start: 2030 Shingles (RZV) Vaccine (1 of 2) Shingles (RZV) Vaccine (1 of 2) [facility] Start: 12-07-2027 Urine microalbumin profile [facility] Start: 02-16-2027 Diabetes mellitus screening Diabetes Screening [facility] Start: 06-20-2026 Diabetes mellitus screening Diabetes Screening [facility] Start: 11-30-2025 Anxiety Screening Anxiety Screening [facility] Start: 11-30-2025 Relationship Safety Screening/Counseling Relationship Safety Screening/Counseling [facility] Start: 08-17-2025 Diabetes mellitus screening Diabetes Screening [facility] Start: 08-13-2025 Annual PCP Team Chronic Disease Visit Annual PCP Team Chronic Disease Visit [facility] Start: 08-13-2025 BP Controlled (<130/80) BP Controlled (<130/80) [facility] Start: 07-11-2025 Annual PCP Team Chronic Disease Visit Annual PCP Team Chronic Disease Visit [facility] Start: 07-11-2025 BP Controlled (<130/80) BP Controlled (<130/80) [facility] Start: 07-11-2025 Depression Screening Depression Screening [facility] Start: 12-24-2024 Influenza vaccination [facility] Start: 12-11-2024 Anxiety Screening Anxiety Screening [facility] Start: 12-11-2024 Relationship Safety Screening/Counseling Relationship Safety Screening/Counseling [facility] Start: 11-17-2024 Tobacco Screening Tobacco Screening [facility] Start: 11-17-2024 Tobacco use cessation education Tobacco Cessation Counseling (#1) [facility] Start: 11-03-2024 BP Controlled (<130/80) BP Controlled (<130/80) [facility] Start: 10-16-2024 Annual PCP Team Chronic Disease Visit Annual PCP Team Chronic Disease Visit [facility] Start: 10-16-2024 BP Controlled (<130/80) BP Controlled (<130/80) [facility] Start: 09-17-2024 End: 09-17-2024 Patient encounter procedure 09/17/2024 1:00 PM [place] [id number] [address] [place] [address] [place] [id number] [place] [address] f/u Felecia Ely MD Comment on above: f/u Start: 08-28-2024 Annual PCP Team Chronic Disease Visit Annual PCP Team Chronic Disease Visit [facility] Start: 08-28-2024 BP Controlled (<130/80) BP Controlled (<130/80) [facility] Start: 08-13-2024 End: 08-13-2024 Patient encounter procedure 08/13/2024 1:45 PM [place] [id number] [address] [place] [address] [place] [id number] [address] [place] [address] f/u Felecia Ely MD Comment on above: f/u Start: 07-18-2024 Annual PCP Team Chronic Disease Visit Annual PCP Team Chronic Disease Visit [facility] Start: 07-18-2024 BP Controlled (<130/80) BP Controlled (<130/80) [facility] Start: 07-11-2024 Lipid panel Lipid Screening [facility] Start: 07-03-2024 [facility] Start: 06-27-2024 Annual PCP Team Chronic Disease Visit Annual PCP Team Chronic Disease Visit [facility] Start: 06-27-2024 BP Controlled (<130/80) BP Controlled (<130/80) [facility] Start: 05-16-2024 Annual PCP Team Chronic Disease Visit Annual PCP Team Chronic Disease Visit [facility] Start: 05-16-2024 BP Controlled (<130/80) BP Controlled (<130/80) [facility] Start: 04-29-2024 Relationship Safety Screening/Counseling Relationship Safety Screening/Counseling [facility] Start: 04-25-2024 Screening for substance abuse Alcohol and Drug Screen [facility] Start: 03-13-2024 Depression Monitoring Depression Monitoring [facility] Start: 02-18-2024 Depression Monitoring Depression Monitoring [facility] Start: 01-16-2024 Screening for malignant neoplasm of breast Breast Cancer Screening (Mammogram) [facility] Start: 01-12-2024 End: 01-12-2024 Patient encounter procedure 01/12/2024 8:30 AM EDT Office Visit Rheumatology [address] [address] Katie Zhong MD [address] [place] [address] Vasculitis Rheumatology Comment on above: Vasculitis Start: 12-25-2023 Covid-19 Vaccine () Covid-19 Vaccine () [facility] Start: 12-25-2023 Covid-19 Vaccine () Covid-19 Vaccine () [facility] Start: 12-25-2023 [id number]-36 () Cth-ZEMGE-97 () [facility] Start: 12-25-2023 Ifx-[id number]-05 () Tks-[id number]-87 () [facility] Start: 12-25-2023 Influenza vaccination [facility] Start: 12-02-2023 End: 12-02-2023 Patient encounter procedure 12/02/2023 9:40 AM EDT Appointment [facility] [address] [facility] [address] [place] [id number] Kirill Causey I, MD [address] [facility] [facility] [address] [place] [address] [facility] Start: 11-29-2023 HPV TESTING HPV TESTING [facility] Start: 11-29-2023 PAP TESTING PAP TESTING [facility] Start: 11-29-2023 Screening for malignant neoplasm of cervix [facility] Start: 11-22-2023 End: 11-22-2023 Patient encounter procedure 11/22/2023 1:30 PM EDT Appointment Mammography [id number] [place] [address] Encounter for screening mammogram for malignant neoplasm of breast [Z12.31], Dr Felecia Ely, [facility] in [facility] w/pt Mammography Comment on above: Encounter for screening mammogram for ma lignant neoplasm of breast [Z12.31], Dr Felecia Ely, order in [facility] w/pt Start: 11-21-2023 End: 11-21-2023 Patient encounter procedure 11/21/2023 2:00 PM [place] [address] [address] [place] [address] [place] [address] [address] [facility] [address] [place] [address] f/u Felecia Ely MD Comment on above: f/u Start: 11-13-2023 Relationship Safety Screening/Counseling Relationship Safety Screening/Counseling [facility] Start: 11-04-2023 BP CONTROLLED (<130/80) BP CONTROLLED (<130/80) [facility] Start: 10-15-2023 Diabetes mellitus screening Diabetes Screening [facility] Start: 09-29-2023 End: 09-29-2023 Patient encounter procedure 09/29/2023 1:30 PM [place] [address] [address] [facility] [address] [place] [address] [place] [address] [address] [facility] [address] [place] [address] f/u Felecia Ely MD Comment on above: f/u Start: 07-29-2023 Depression Monitoring Depression Monitoring [facility] Start: 07-10-[address]id Scre[address] [facility] Start: 06-29-2023 ANNUAL PCP TEAM CHRONIC DISEASE VISIT ANNUAL PCP TEAM CHRONIC DISEASE VISIT [facility] Start: 05-03-2023 Relationship Safety Screening Relationship Safety Screening [facility] Start: 05-03-2023 Relationship Safety Screening/Counseling Relationship Safety Screening/Counseling [facility] Start: 04-25-2023 Behavioral Health Screening Behavioral Health Screening [facility] Start: 04-25-2023 Depression Assessment Depression Assessment [facility] Start: 04-25-2023 Depression screening Depression Annual Screen (#1) [facility] Start: 04-25-2023 Screening for substance abuse Alcohol and Drug Screen [facility] Start: 01-15-2023 Mammography [facility] Start: 01-15-2023 Screening for malignant neoplasm of breast Mammogram Screening [facility] Start: 01-05-2023 ANNUAL PCP TEAM CHRONIC DISEASE VISIT ANNUAL PCP TEAM CHRONIC DISEASE VISIT [facility] Start: 12-24-2022 Covid-19 Vaccine () Covid-19 Vaccine () [facility] Start: 12-24-2022 [id number]-59 () Tkm-[id number]-45 () [facility] Start: 12-24-2022 Influenza vaccination [facility] Start: 11-10-2022 Adult depression screening assessment DEPRESSION SCREENING [facility] Start: 11-10-2022 ANNUAL PCP TEAM CHRONIC DISEASE VISIT ANNUAL PCP TEAM CHRONIC DISEASE VISIT [facility] Start: 11-10-2022 BP CONTROLLED (<130/80) BP CONTROLLED (<130/80) [facility] Start: 10-05-2022 TWO PNEUMOVAX 5 YEARS APART PRIOR TO AGE 65 (#2) TWO PNEUMOVAX 5 YEARS APART PRIOR TO AGE 65 (#2) [facility] Start: 07-06-2022 End: 09-05-2022 25-hydroxyvitamin D3 [Mass/volume] in Serum or Plasma VITAMIN D 25 HYDROXY Lab Routine Vitamin D deficiency Expected: 07/06/2022, Expires: 09/05/2022 BILLIE ELY MD Work Phone: Comment on above: Expected: 07/06/2022, Expires: 3 Start: 07-06-2022 End: 09-05-2022 CBC panel - Blood by Automated count CBC Lab Routine Diabetes mellitus type 1, controlled, without complications (HCC) Expected: 07/06/2022, Expires: 09/05/2022 BILLIE ELY MD Work Phone: Comment on above: Expected: 07/06/2022, Expires: 3 Start: 07-06-2022 End: 09-05-2022 Comprehensive metabolic 2000 panel - Serum or Plasma COMP METABOLIC PANEL Lab Routine Diabetes mellitus type 1, controlled, without complications (HCC) Expected: 07/06/2022, Expires: 09/05/2022 BILLIE ELY MD Work Phone: Comment on above: Expected: 07/06/2022, Expires: 3 Start: 07-06-2022 End: 09-05-2022 Lipid 1996 panel - Serum or Plasma LIPID PANEL BASIC Lab Routine Diabetes mellitus type 1, controlled, without complications (HCC) Expected: 07/06/2022, Expires: 09/05/2022 BILLIE ELY MD Work Phone: Comment on above: Expected: 07/06/2022, Expires: 3 Start: 07-06-2022 End: 09-05-2022 Thyrotropin [Units/volume] in Serum or Plasma TSH BLD Lab Routine Fatigue, unspecified type Expected: 07/06/2022, Expires: 09/05/2022 BILLIE ELY MD Work Phone: Comment on above: Expected: 07/06/2022, Expires: 3 Start: 07-06-2022 End: 09-05-2022 Thyroxine (T4) free [Mass/volume] in Serum or Plasma T4 FREE/FREE THYROX Lab Routine Fatigue, unspecified type Expected: 07/06/2022, Expires: 09/05/2022 BILLIE ELY MD Work Phone: Comment on above: Expected: 07/06/2022, Expires: 3 Start: 04-25-2022 DEPRESSION ASSESSMENT DEPRESSION ASSESSMENT [facility] Start: 04-25-2022 Screening for substance abuse Alcohol and Drug Screen [facility] Start: 03-10-2022 ANNUAL PCP TEAM CHRONIC DISEASE VISIT ANNUAL PCP TEAM CHRONIC DISEASE VISIT [facility] Start: 12-24-2021 Influenza vaccination [facility] Start: 11-10-2021 End: 01-10-2022 25-hydroxyvitamin D3 [Mass/volume] in Serum or Plasma VITAMIN D 25 HYDROXY Lab Routine Vitamin D deficiency Expected: 11/10/2021, Expires: 01/10/2022 BILLIE ELY MD Work Phone: Comment on above: Expected: 11/10/2021, Expires: 2 Start: 11-10-2021 End: 01-10-2022 CBC panel - Blood by Automated count CBC Lab Routine Fatigue, unspecified type Expected: 11/10/2021, Expires: 01/10/2022 BILLIE ELY MD Work Phone: Comment on above: Expected: 11/10/2021, Expires: 2 Start: 11-10-2021 End: 01-10-2022 Comprehensive metabolic 2000 panel - Serum or Plasma COMP METABOLIC PANEL Lab Routine Fatigue, unspecified type Expected: 11/10/2021, Expires: 01/10/2022 BILLIE ELY MD Work Phone: Comment on above: Expected: 11/10/2021, Expires: 2 Start: 11-10-2021 End: 01-10-2022 Lipid 1996 panel - Serum or Plasma LIPID PANEL BASIC Lab Routine Hyperlipidemia, unspecified hyperlipidemia type Expected: 11/10/2021, Expires: 01/10/2022 BILLIE ELY MD Work Phone: Comment on above: Expected: 11/10/2021, Expires: 2 Start: 11-10-2021 End: 01-10-2022 Thyrotropin [Units/volume] in Serum or Plasma TSH BLD Lab Routine Fatigue, unspecified type Expected: 11/10/2021, Expires: 01/10/2022 BILLIE ELY MD Work Phone: Comment on above: Expected: 11/10/2021, Expires: 2 Start: 11-10-2021 End: 01-10-2022 Thyroxine (T4) free [Mass/volume] in Serum or Plasma T4 FREE/FREE THYROX Lab Routine Fatigue, unspecified type Expected: 11/10/2021, Expires: 01/10/2022 BILLIE ELY MD Work Phone: Comment on above: Expected: 11/10/2021, Expires: 2 Start: 10-14-2021 Diabetes mellitus screening Diabetes Screening [facility] Start: 10-06-2021 Adult depression screening assessment DEPRESSION SCREENING [facility] Start: 08-23-2021 COVID-19 VACCINE (4 - Booster for Moderna series) COVID-19 VACCINE (4 - Booster for Moderna series) [facility] Start: 07-21-2021 COVID-19 VACCINE (4 - Booster for Moderna series) COVID-19 VACCINE (4 - Booster for Moderna series) [facility] Start: 07-21-2021 Covid-19 Vaccine (4 - Moderna risk series) Covid-19 Vaccine (4 - Moderna risk series) [facility] Start: 07-21-2021 [id number]-75 (4 - Booster for Moderna series) Jfy-VSPHS-16 (4 - Booster for Moderna series) [facility] Start: 04-25-2021 DEPRESSION ASSESSMENT DEPRESSION ASSESSMENT [facility] Start: 12-25-2020 BP CONTROLLED (<130/80) BP CONTROLLED (<130/80) [facility] Start: 2020 Mammography MAMMOGRAM [facility] Start: 2020 Screening for malignant neoplasm of breast Mammography [facility] Start: 09-04-2020 Zow-FBRGX-67 (2 - Moderna risk series) Vzk-JYITJ-53 (2 - Moderna risk series) [facility] Start: 02-27-2020 Tobacco use cessation education Tobacco Cessation Counseling (#1) [facility] Start: 02-20-2020 Lipid panel Lipid Screening [facility] Start: 11-29-2019 Screening for malignant neoplasm of cervix Cervical Cancer Screening [facility] Start: 07-17-2011 Screening for malignant neoplasm of cervix Pap Smear [facility] Start: 12-04-2007 HPV Vaccine (optional start 27-45 years) HPV Vaccine (optional start 27-45 years) [facility] Start: 12-24-2006 Annual wellness visit Annual Wellness Visit ([id number]) [facility] Start: 2001 Screening for malignant neoplasm of cervix [facility] Start: 12-04-1999 Hepatitis A (HAV) Vaccine (optional start 19+ years) Hepatitis A (HAV) Vaccine (optional start 19+ years) [facility] Start: 12-04-1999 Hepatitis A immunization Imm-Hepatitis A (1 of 2 - Risk 2-dose series) [facility] Start: 12-04-1999 Hepatitis B vaccination Imm-Hepatitis B (1 of 3 - 19+ 3-dose series) [facility] Start: 12-04-1999 Hepatitis B Vaccine (1 of 3 - 19+ 3-dose series) Hepatitis B Vaccine (1 of 3 - 19+ 3-dose series) [facility] Start: 12-04-1999 Imm-Zoster, Recombinant (1 of 2) Imm-Zoster, Recombinant (1 of 2) [facility] Start: 12-04-1999 SHINGRIX VACCINE (1 of 2) SHINGRIX VACCINE (1 of 2) [facility] Start: 12-04-1999 Tetanus vaccination Imm-DTaP/Tdap/Td (1 - Tdap) [facility] Start: 1998 Depression Screening Depression Screening [facility] Start: 1998 Hepatitis C screening Hepatitis C Antibody [facility] Start: 1998 Medicare Annual Wellness Visit Medicare Annual Wellness Visit [facility] Start: 1998 Tetanus + diphtheria + acellular pertussis vaccine (product) Tdap Booster [facility] Start: 12-04-1995 HIV Screening HIV Screening [facility] Start: 12-04-1995 HIV screening HIV Test [facility] Start: 1994 Serologic test for syphilis Syphilis Screening [facility] Start: 1986 Pneumococcal vaccination Pneumococcal Vaccine(s) (1 of 2 - PCV) [facility] Start: 12-04-1983 Annual Wellness Visit (Medicare) Annual Wellness Visit (Medicare) [facility] Start: 06-05-1981 COVID-19 Vaccine (#1) COVID-19 Vaccine (#1) [facility] Start: 1980 Anxiety Screening Anxiety Screening [facility] Start: 1980 HEPATITIS B (1 of 3 - 3-dose series) HEPATITIS B (1 of 3 - 3-dose series) [facility] Start: 1980 Hepatitis B vaccination [facility] Start: 1980 Hepatitis B Vaccine (1 of 3 - 3-dose series) Hepatitis B Vaccine (1 of 3 - 3-dose series) [facility] Start: 1980 Hepatitis C screening Hepatitis C Screening [facility] Start: 1980 Lipid panel Lipid Screening [facility] Start: 1980 Screening for malignant neoplasm of cervix [facility] End: 10-24-2023 CBC panel - Blood by Automated count CBC Lab Routine 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, 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) Every 3 months for 12 Occurrences starting 10/25/2022 until 10/24/2023 [facility] Work Phone: Comment on above: Every 3 months for 12 Occurrences starti ng 10/25/2022 until 10/24/2023 End: 10-25-2023 Comprehensive metabolic 2000 panel - Serum or Plasma COMP METABOLIC PANEL Lab Routine 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, 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) Every 3 months for 12 Occurrences starting 10/25/2022 until 10/25/2023 [facility] Work Phone: Comment on above: Every 3 months for 12 Occurrences starti ng 10/25/2022 until 10/25/2023 End: 11-03-2024 EGD DIAGNOSTIC EGD DIAGNOSTIC Endoscopy Routine Nausea and vomiting, unspecified vomiting type Abdominal pain, right upper quadrant 1 Occurrences starting 11/04/2023 until 11/03/2024 [facility] Comment on above: 1 Occurrences starting 11/04/2023 until 11/03/2024 End: 11-03-2024 Flexible sigmoidoscopy study COLONOSCOPY DIAGNOSTIC Endoscopy Routine Nausea and vomiting, unspecified vomiting type Abdominal pain, right upper quadrant 1 Occurrences starting 11/04/2023 until 11/03/2024 [facility] Work Phone: Comment on above: 1 Occurrences starting 11/04/2023 until 11/03/2024 End: 11-15-2024 MG Breast Screening [facility]iology Routine Encounter for screening mammogram for malignant neoplasm of breast 1 Occurrences starting 10/17/2023 until 11/15/2024 BILLIE ELY MD Work Phone: Comment on above: 1 Occurrences starting 10/17/2023 until 11/15/2024 End: 08-10-2025 MG Breast Screening [facility] SCREENING Radiology Routine Encounter for screening mammogram for malignant neoplasm of breast 1 Occurrences starting 07/11/2024 until 08/10/2025 BILLIE ELY MD Work Phone: Comment on above: 1 Occurrences starting 07/11/2024 until 08/10/2025 End: 09-12-2025 MG Breast Screening [facility] SCREENING Radiology Routine Encounter for screening mammogram for malignant neoplasm of breast 1 Occurrences starting 08/13/2024 until 09/12/2025 BILLIE ELY MD Work Phone: Comment on above: 1 Occurrences starting 08/13/2024 until 09/12/2025 End: 2023 Mra head w/o & w/contrast material MRA BRAIN WO/W IVCON Radiology Routine 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) 1 Occurrences starting 11/03/2022 until 2023 [facility] Work Phone: Comment on above: 1 Occurrences starting 11/03/2022 until 2023 End: 2023 Mri brain brain stem w/o w/contrast material MRI BRAIN WO/W IVCON Radiology Routine 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) 1 Occurrences starting 11/03/2022 until 2023 [facility] Work Phone: Comment on above: 1 Occurrences starting 11/03/2022 until 2023 End: 12-31-2024 NM Stomach Views for gastric emptying solid phase W radionuclide PO NM GASTRIC EMPTYING SOLID Radiology Routine Nausea and vomiting, unspecified vomiting type 1 Occurrences starting 12/02/2023 until 12/31/2024 [facility] Work Phone: Comment on above: 1 Occurrences starting 12/02/2023 until 12/31/2024 Patient Education Dehydration ED Gastroenteritis, Viral (Adult) [facility] Work Phone: Patient referral [facility] Work Phone: End: 12-10-2022 Screening mammography bi 2-view breast inc cad [facility] SCREENING Radiology Routine Encounter for screening for malignant neoplasm of breast, unspecified screening modality 1 Occurrences starting 11/10/2021 until 12/10/2022 BILLIE ELY MD Work Phone: Comment on above: 1 Occurrences starting 11/10/2021 until 12/10/2022 SURGICAL PATHOLOGY SURGICAL PATH OLOGY Lab Routine Problems with swallowing and mastication Ordered: 12/02/2023 [facility] Work Phone: Comment on above: Ordered: 12/02/2023 End: 12-31-2024 XR Esophagus Views W contrast PO XR ESOPHAGRAM Radiology Routine Nausea and vomiting, unspecified vomiting type 1 Occurrences starting 12/02/2023 until 12/31/2024 [facility] Comment on above: 1 Occurrences starting 12/02/2023 until 12/31/2024 [facility] [facility] Immunizations Immunization Date Immunization Notes Care Provider Fa amaury 04-09-2024 influenza, injectabl e, madin enid canine kidney, preservative free Felecia Ely MD Work Phone: [facility] 04-09-2024 influenza virus vaccine, unspecified formulation Felecia Ely MD Work Phone: [facility] 04-09-2023 influenza, injectabl e, quadrivalent, preservative free Felecia Ely MD Work Phone: [facility] 04-09-2023 influenza virus vaccine, unspecified formulation Bev Ríos LDR RN.ADMINISTRATIVE RESOURCES ASSOCIATE Work Phone: [facility] 03-22-2021 influenza, injectabl e, quadrivalent, preservative free Katie Vick MD Work Phone: [facility] 03-22-2021 influenza virus vaccine, unspecified formulation Mri (I-Stat/1.5t/3t) Work Phone: [facility] 08-07-2020 COVID-19 vaccine, fu ll dose (MODERNA) Katie Vick MD Work Phone: [facility] 02-21-2020 pneumococcal polysaccharide vaccine, 23 valent Katie Vick MD Work Phone: [facility] 10-05-2019 pneumococcal conjuga te vaccine, 13 valent Katie Vick MD Work Phone: [facility] 01-29-2019 influenza, injectabl e, quadrivalent, preservative free Katie Vick MD Work Phone: [facility] 02-17-2018 influenza, injectabl e, quadrivalent, contains preservative Katie Vick MD Work Phone: [facility] 10-05-2017 pneumococcal polysaccharide vaccine, 23 valent Felecia Ely MD Work Phone: [facility] Work Phone: 01-30-2016 influenza, seasonal, injectable Katie Vick MD Work Phone: [facility] 05-14-2010 influenza, seasonal, injectable Katie Vick MD Work Phone: [facility] Work Phone: NEGATED: Highlighted row has not occurred!02-17-2024 influenza, seasonal, injectable, preservative free Felecia Ely MD Work Phone: [facility] Comment on above: Deferred: Patient Re fused Payers Date Payer Category Payer Self-pay 2023 Unknown [id number] 2016 Medicare [id number] 2016 Medicare [id number] 2010 Medicare [id number] 2010 Medicare [id number] 2008 Medicaid [id number] 2000 Medicaid [id number] 1. [id number] 1980 Unknown [id number] 1980 Unknown [id number] Unknown Unknown [id number] Social History Date Type Detail Facility Start: 06-30-2012 End: 11-18-2023 Tobacco smoking status NHIS Smokes tobacco daily [facility] History of tobacco use Cigarette Smoker [facility] Start: 06-30-2012 End: 11-30-2024 Cigarettes smoked current (pack per day) - Reported 0.5 [facility] Start: 06-30-2012 End: 11-18-2023 Tobacco use and exposure Smokeless tobacco non-user [facility] Start: 07-22-2021 End: 11-18-2023 Alcohol intake Current non-drinker of alcohol (finding) [facility] Start: 11-28-2018 End: 01-05-2022 Tobacco Comment cutting down, down 5 cigarettes daily [facility] Start: 1980 Sex Assigned At Not on file [facility] Start: 01-05-2022 End: 01-15-2022 Exposure to SARS-CoV-2 (event) Not sure [facility] Start: 12-01-2021 Tobacco Comment 03/19/19 was down to five cigarettes daily but has increased to 0.5 PPD since seperation from [facility] Work Phone: Start: 02-27-2019 Alcohol Comment 02/27/19: 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, 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 [facility] Work Phone: Start: 1980 Sex Assigned At Female [facility] ices Start: 05-03-2022 End: 11-30-2024 Social Connections [facility] Social Connections a nd Isolation 1 [facility] Start: 07-24-2018 Gender identity Identifies as female gender (finding) [facility] Start: 07-24-2018 Sexual [facility]finding[facility] Start: 07-03-2023 Sexual orientation Heterosexual (finding) [facility] Tobacco smoking stat us IDIS Tobacco smoking consumption unknown [facility] Work Phone: Has the [employer], or water [employer] threatened to shut off services in your home in past 12Mo No [facility] Work Phone: (I/We) worried murali er (my/our) food would run out before (I/we) got money to buy more. Never true [facility] In the past 12 month s, was there a time when you were not able to pay the mortgage or rent on time? Yes [facility] Start: 05-02-2018 End: 07-03-2024 Sex Female (finding) [facility] Medical Equipment Procedure Code Equipment Code Equipment Original Text Equipment Identifier Dates Sub Bngf Prognx Dbm Hum Bov - [id number] Start: 01-29-2011 Ahb-Ie-M-Kind Implant - [id number] Start: 01-29-2011 Comment on above: Description: 3.0 x 1 2mm short cannulated stainless steel screw Hsn-Fu-E-Kind Implant - [id number] Start: 01-29-2011 Comment on above: Description: 3.0 x 1 3mm short cannulated stainless steel screw Goals Date Patient Goal Desired Activity /State Personal health goal Comment on above: Formatting of this n ote might be different from the original. Progress noted through PETE-7 scores. Screening to be completed every 6 months during the service plan review. Formatting of this n ote might be different from the original. Client will identify negative self talk and beliefs and replace with positive affirmations 1x during each counseling session. Formatting of this n ote might be different from the original. Progress to be monitored through PHQ-9 screenings administered every 6 months during the care plan review. Functional Status Date Assessment Result Facility 04-09-2023 Are you deaf, or do you have serious difficulty hearing No 04/09/2023 10:26 AM Viji Winchester RN No [facility] 04-09-2023 Are you blind, or do you have serious difficulty seeing, even when wearing glasses No 04/09/2023 10:26 AM Viji Winchester RN No [facility] 04-09-2023 Do you have serious difficulty walking or climbing stairs No 04/09/2023 10:26 AM Viji Winchester RN No [facility] 04-09-2023 Do you have difficul ty dressing or bathing No 04/09/2023 10:26 AM Viji Winchester RN No [facility] 04-09-2023 Because of a physica l, mental, or emotional condition, do you have difficulty doing errands alone such as visiting a physician's office or shopping Yes 04/09/2023 10:26 AM Viji Winchester RN Yes [facility] Mental Status Date Assessment Result Facility 04-09-2023 Because of a physica l, mental, or emotional condition, do you have serious difficulty concentrating, remembering, or making decisions Yes 04/09/2023 10:26 AM Viji Winchester RN Yes [facility] Clinical Notes 02-20-2019 to 11-30-2024 Ramses Allen LPC - 11/30/2024 11:40 AM MORGANJosewendy Eller Pauljorge, JAMIE - 11/30/2024 11:08 AM Matthewwendy Eller Pauljorge, JAMIE - 11/16/2024 10:06 AM Matthewwendy Eller Pauljorge, JAMIE - 10/19/2024 1:19 PM EDTAttachments Note Date & Type Note Facility 11-30-2024 History of Present illness Narrative Care Plan Date Created:11/30/2024 Strengths: Strengths as outlined by patient: I think I'm a good listener and I'm supportive and I guess I'm loyal. Strengths as described by others: That I'm kind and a good listener. Coping Skills: Meditation, reframing negative thoughts, Stop and Tipp. Stress Management: Client moved into mother's house temporarily with the goal to decrease debt and save for an apartment. Wellness: Meditation Tuesday', I write down a affirmation every day and repeat it during the day. Social Support: Family. Exercise: Walks at work. Hobbies and Interests: Not so much. Assessed Needs: Mental Health assessed need: Active Level of Service: Outpatient Template: Counseling Care Plan Problem: Anxiety Disciplines: Interdisciplinary Goal: GOAL: Increase ability to manage anxiety and restore daily life roles and activities Dates: Start: 11/30/24 Expected End: 11/30/25 Priority: Medium Patient-stated: Yes Disciplines: Interdisciplinary Intervention: Assist the client in identifying at least one situation and patterns of thought which precede/maintain anxiety symptoms so the client may respond more adaptively to those situations and thoughts Frequency: 2-3 times Monthly Duration: 45 minutes Dates: Start: 11/30/24 Description: PC will utilize various therapeutic modalities and interventions including CBT and DBT. Responsible: Ramses Allen LPC Goal: Objective: Explore and process antecedents, cognitions affecting mental health symptoms 1 x per session over the course of 1 year. Dates: Start: 11/30/24 Expected End: 11/30/25 Priority: Medium Patient-stated: Yes Description: Progress noted through PETE-7 scores. Screening to be completed every 12 months during the service plan review. CBT, Supportive Therapy, Solution Focused Therapy Disciplines: Interdisciplinary Goal: Objective: Identify, challenge and replace biased, fearful self-talk with reality-based, positive self-talk 1x per session over the course of 1 year Dates: Start: 11/30/24 Expected End: 11/30/25 Priority: Medium Patient-stated: Yes Description: Client will identify negative self talk and beliefs and replace with positive affirmations 1x during each counseling session. Disciplines: Interdisciplinary Problem: Depression Disciplines: Interdisciplinary Goal: GOAL: Alleviate depression and restore daily life roles and activities Dates: Start: 11/30/24 Expected End: 11/30/25 Priority: High Patient-stated: Yes Disciplines: Interdisciplinary Intervention: Clinician will teach client in the use of behavioral interventions through instruction, modeling, rehearsal, to develop skills and practice, review, and provide feedback for refining and consolidating use Frequency: 2-3 times Monthly Duration: 45 minutes Dates: Start: 11/30/24 Description: PC will use behavioral activation strategies, DBT and CBT. Responsible: Ramses Allen LPC Goal: Objective: Explore and practice interventions to assist with coping, increasing self awareness 1 x per session over the course of 1 year Dates: Start: 11/30/24 Expected End: 11/30/25 Priority: Medium Patient-stated: Yes Description: Progress to be monitored through PHQ-9 screenings administered every 6 months during the care plan review. Disciplines: Interdisciplinary Plan Comments: Screenings administered:PHQ-9, PETE-7, SDH, [place] Scales, BAM. Client scores have improved over the past year, PHQ-9:12 (moderate depression), PETE-7: 3(none or minimal anxiety). Client was from her and continues to grieve the relationship. Client has moved temporarily into her mother's home to work on decreasing her outstanding bills and to save for an apartment. Her child has moved in with his significant other. Client lost her dog (residing with her son), and cats due to the move. 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 Client's symptoms are decreasing through use of pro active and reactive therapeutic interventions. Service Conclusion Criteria/Transition/Discharge: I don't know. I guess if I have enough of a friend [place] that I could talk to I might not need counseling. Participants for Today s Plan: Patient acknowledges participating, agrees with plan. 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 The identity of Nida was verified by their date of , (1980), and last four digits of their social security number, ([id number]). The provider demonstrated that confidentially was preserved at their location. Nida was informed that they were responsible for ensuring confidentially was secured at their location. Nida's location was documented for emergency purposes. Nida was informed of the necessary steps that would occur if an emergency was to occur or technology failed during session. Click to Document PHQ-9 COUNSELING PROGRESS NOTE Nida Francis is a 43 year old female here today for Individual Counseling Updated the Care Plan and administered screenings: PHQ-9, PETE-7, SDH, [place] Scales, BAM. Client scores have improved over the past year, PHQ-9:12 (moderate depression), PETE-7: 3(none or minimal anxiety). Client was from her and continues to grieve the relationship. Client has moved temporarily into her mother's home to work on decreasing her outstanding bills and to save for an apartment. Her child has moved in with his significant other. Client lost her dog (residing with her son), and cats due to the move. 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 Client's symptoms are decreasing through use of pro active and reactive therapeutic interventions. SUBJECTIVE: Client appeared neutral or euthymic and sad or depressed. Evaluated Safety and risk: N/A. OBJECTIVE: Assessment of Mood: anxiety and depressed mood Discussed client's use of CBT. Goal from ISSP addressed during this session: See Care Plan below ASSESSMENT: Diagnosis: Visit Diagnosis ICD-9-CM ICD-10-CM 1. Bipolar II disorder ([facility]) Chronic 296.89 F31.81 2. Posttraumatic stress disorder 309.81 F43.10 3. Panic disorder 300.01 F41.0 4. Unspecified mood (affective) disorder ([facility] V24) Chronic 296.90 F39 5. Bereavement reaction 309.0 F43.20 V62.89 Z63.4 Engaged client in learning updated the care Plan, screenings Progress toward goal: Moderate Improvement PLAN: Assigned homework/practice of the following: N/A at this time. Continue psychotherapy Current Care Plan Template: Counseling Care Plan Problem: Anxiety Disciplines: Interdisciplinary Goal: GOAL: Increase ability to manage anxiety and restore daily life roles and activities Dates: Start: 11/30/24 Expected End: 11/30/25 Priority: Medium Patient-stated: Yes Disciplines: Interdisciplinary Intervention: Assist the client in identifying at least one situation and patterns of thought which precede/maintain anxiety symptoms so the client may respond more adaptively to those situations and thoughts Frequency: 2-3 times Monthly Duration: 45 minutes Dates: Start: 11/30/24 Description: PC will utilize various therapeutic modalities and interventions including CBT and DBT. Responsible: Ramses Allen LPC Goal: Objective: Explore and process antecedents, cognitions affecting mental health symptoms 1 x per session over the course of 1 year. Dates: Start: 11/30/24 Expected End: 11/30/25 Priority: Medium Patient-stated: Yes Description: Progress noted through PETE-7 scores. Screening to be completed every 12 months during the service plan review. CBT, Supportive Therapy, Solution Focused Therapy Disciplines: Interdisciplinary Goal: Objective: Identify, challenge and replace biased, fearful self-talk with reality-based, positive self-talk 1x per session over the course of 1 year Dates: Start: 11/30/24 Expected End: 11/30/25 Priority: Medium Patient-stated: Yes Description: Client will identify negative self talk and beliefs and replace with positive affirmations 1x during each counseling session. Disciplines: Interdisciplinary Problem: Depression Disciplines: Interdisciplinary Goal: GOAL: Alleviate depression and restore daily life roles and activities Dates: Start: 11/30/24 Expected End: 11/30/25 Priority: High Patient-stated: Yes Disciplines: Interdisciplinary Intervention: Clinician will teach client in the use of behavioral interventions through instruction, modeling, rehearsal, to develop skills and practice, review, and provide feedback for refining and consolidating use Frequency: 2-3 times Monthly Duration: 45 minutes Dates: Start: 11/30/24 Description: PC will use behavioral activation strategies, DBT and CBT. Responsible: Ramses Allen LPC Goal: Objective: Explore and practice interventions to assist with coping, increasing self awareness 1 x per session over the course of 1 year Dates: Start: 11/30/24 Expected End: 11/30/25 Priority: Medium Patient-stated: Yes Description: Progress to be monitored through PHQ-9 screenings administered every 6 months during the care plan review. Disciplines: Interdisciplinary Next appointment: Scheduled next appointment for 12/21/24 at Other: telehealth. documented in this encounter [facility] Work Phone: 11-16-2024 History of Present illness Narrative Nida Francis engaged in a telehealth session via PHONE with this provider practicing within the [facility]. The identity of Nida was verified by their date of , (1980), and last four digits of their social security number, ([id number]). The provider demonstrated that confidentially was preserved at their location. Nida was informed that they were responsible for ensuring confidentially was secured at their location. Nida's location was documented for emergency purposes. Nida was informed of the necessary steps that would occur if an emergency was to occur or technology failed during session. COUNSELING PROGRESS NOTE Nida Francis is a 43 year old female here today for Individual Counseling I'm kind of in trouble with the law. PC provided active listening as client described events related to the statement. PC assisted client to explore past accomplishments and future goals to accomplish over the next year. PC provided validation, empathetic statements as client explored obstacles to achieving future goals. PC helped clien tto explored fears associated with goals. PC helped client to problem solve and plan to decrease anxiety. PC assisted client to explore current use of coping strategies; client continues to engage in weekly medications with a family member. Exploration of loss and the statement, I have a hard time of letting go of people, especially when my Grandma . PC helped client to explore cognitive distortions surrounding belief of relationships. PC assisted client to explore ways to be supportive and not enabling within relationships. SUBJECTIVE: Client appeared neutral or euthymic. Evaluated Safety and risk: N/A. OBJECTIVE: Assessment of Mood: anxiety Discussed client's use of CBT. Goal from ISSP addressed during this session: Increase ability to manage anxiety and restore daily life roles and activities ASSESSMENT: Diagnosis: Visit Diagnosis ICD-9-CM ICD-10-CM 1. Bipolar II disorder ([facility]) Chronic 296.89 F31.81 2. Panic disorder 300.01 F41.0 Engaged client in learning Review of Thinking Errors and Cognitive Challenges Progress toward goal: Minimal Improvement PLAN: Assigned homework/practice of the following: see note. Continue psychotherapy Current Care Plan Template: Counseling Care Plan Problem: Anxiety Disciplines: Interdisciplinary Goal: GOAL: Increase ability to manage anxiety and restore daily life roles and activities Dates: Start: 12/12/23 Expected End: 12/11/24 Priority: High Disciplines: Interdisciplinary Intervention: Assist the client in identifying at least one situation and patterns of thought which precede/maintain anxiety symptoms so the client may respond more adaptively to those situations and thoughts Frequency: 2-3 times Monthly Dates: Start: 12/11/24 Description: PC will utilize various therapeutic modalities and interventions including CBT and DBT. Responsible: Ramses Allen [facility] Goal: Objective: Explore and process antecedents, cognitions affecting mental health symptoms 1 x per session over the course of 1 year. Dates: Start: 12/12/23 Expected End: 12/11/24 Priority: High Patient-stated: Yes Description: Progress noted through PETE-7 scores. Screening to be completed every 6 months during the service plan review. CBT Disciplines: Interdisciplinary Goal: Objective: Identify, challenge and replace biased, fearful self-talk with reality-based, positive self-talk 1x per session over the course of 1 year Dates: Start: 12/12/23 Expected End: 12/11/24 Priority: High Patient-stated: Yes Description: Client will identify negative self talk and beliefs and replace with positive affirmations 1x during each counseling session. Disciplines: Interdisciplinary Problem: Depression Disciplines: Interdisciplinary Goal: GOAL: Alleviate depression and restore daily life roles and activities Dates: Start: 12/12/23 Expected End: 12/11/24 Priority: High Patient-stated: Yes Disciplines: Interdisciplinary Intervention: Clinician will teach client in the use of behavioral interventions through instruction, modeling, rehearsal, to develop skills and practice, review, and provide feedback for refining and consolidating use Frequency: 2-3 times Monthly Duration: 60 minutes Dates: Start: 12/11/24 Description: PC will use behavioral activation strategies, DBT and CBT. Responsible: Ramses Allen LPC Goal: Objective: Explore and practice interventions to assist with coping, increasing self awareness 1 x per session over the course of 1 year Dates: Start: 12/12/23 Expected End: 12/11/24 Priority: Medium Patient-stated: Yes Description: Progress to be monitored through PHQ-9 screenings administered every 6 months during the care plan review. Disciplines: Interdisciplinary Next appointment: Scheduled next appointment for 11/30/24 at Other: telehealth. documented in this encounter [place] [facility] Work Phone: 10-29-2024 Telephone encounter Note Patient phones requesting refills as follows: Requested Prescriptions Pending Prescriptions Disp Refills gabapentin (NEURONTIN) 100 mg capsule [Pharmacy Med Name: GABAPENTIN 100 MG CAPS 100 Capsule] 180 capsule 0 Sig: Take 2 capsules by mouth three times a day for 30 days. Please review and advise. Jeannette Diaz MA [facility] 10-29-2024 Miscellaneous Notes Patient phones requesting refills as follows: Requested Prescriptions Pending Prescriptions Disp Refills gabapentin (NEURONTIN) 100 mg capsule [Pharmacy Med Name: GABAPENTIN 100 MG CAPS 100 Capsule] 180 capsule 0 Sig: Take 2 capsules by mouth three times a day for 30 days. Please review and advise. Jeannette Diaz MA documented in this encounter [facility] 10-19-2024 History of Present illness Narrative Nida Francis engaged in a telehealth session via PHONE with this provider practicing within the [facility]. The identity of Nida was verified by their date of , (1980), and last four digits of their social security number, ([id number]). The provider demonstrated that confidentially was preserved at their location. Nida was informed that they were responsible for ensuring confidentially was secured at their location. Nida's location was documented for emergency purposes. Nida was informed of the necessary steps that would occur if an emergency was to occur or technology failed during session. COUNSELING PROGRESS NOTE Nida Francis is a 43 year old female here today for Individual Counseling . PC completed an emotional check-in. PC provided support as client explored concerns with family members. PC utilized open ended and exploratory questions to facilitate the session as client was distant and distracted. PC inquired of client's use of previously suggested interventions. Client reported her ex reached out to client through a family member thereby client continues to ruminate and be hopeful. PC helped client to process the events, thoughts, beliefs and wants. Client identified her response to her ex which would increase the likelihood of more conversations. SUBJECTIVE: Client appeared neutral or euthymic. Evaluated Safety and risk: N/A. OBJECTIVE: Assessment of Mood: anxiety and depressed mood Discussed client's use of Supportive Therapy. Goal from ISSP addressed during this session: Increase ability to manage anxiety and restore daily life roles and activities ASSESSMENT: Diagnosis: Visit Diagnosis ICD-9-CM ICD-10-CM 1. Bipolar II disorder ([facility]) Chronic 296.89 F31.81 2. Panic disorder 300.01 F41.0 Engaged client in learning Review of Thinking Errors and Cognitive Challenges Progress toward goal: Moderate Improvement PLAN: Assigned homework/practice of the following: N/A at this time. Continue psychotherapy Current Care Plan Template: Counseling Care Plan Problem: Anxiety Disciplines: Interdisciplinary Goal: GOAL: Increase ability to manage anxiety and restore daily life roles and activities Dates: Start: 12/12/23 Expected End: 12/11/24 Priority: High Disciplines: Interdisciplinary Intervention: Assist the client in identifying at least one situation and patterns of thought which precede/maintain anxiety symptoms so the client may respond more adaptively to those situations and thoughts Frequency: 2-3 times Monthly Dates: Start: 12/11/24 Description: PC will utilize various therapeutic modalities and interventions including CBT and DBT. Responsible: Ramses Allen LPC Goal: Objective: Explore and process antecedents, cognitions affecting mental health symptoms 1 x per session over the course of 1 year. Dates: Start: 12/12/23 Expected End: 12/11/24 Priority: High Patient-stated: Yes Description: Progress noted through PETE-7 scores. Screening to be completed every 6 months during the service plan review. CBT Disciplines: Interdisciplinary Goal: Objective: Identify, challenge and replace biased, fearful self-talk with reality-based, positive self-talk 1x per session over the course of 1 year Dates: Start: 12/12/23 Expected End: 12/11/24 Priority: High Patient-stated: Yes Description: Client will identify negative self talk and beliefs and replace with positive affirmations 1x during each counseling session. Disciplines: Interdisciplinary Problem: Depression Disciplines: Interdisciplinary Goal: GOAL: Alleviate depression and restore daily life roles and activities Dates: Start: 12/12/23 Expected End: 12/11/24 Priority: High Patient-stated: Yes Disciplines: Interdisciplinary Intervention: Clinician will teach client in the use of behavioral interventions through instruction, modeling, rehearsal, to develop skills and practice, review, and provide feedback for refining and consolidating use Frequency: 2-3 times Monthly Duration: 60 minutes Dates: Start: 12/11/24 Description: PC will use behavioral activation strategies, DBT and CBT. Responsible: Ramses Allen LPC Goal: Objective: Explore and practice interventions to assist with coping, increasing self awareness 1 x per session over the course of 1 year Dates: Start: 12/12/23 Expected End: 12/11/24 Priority: Medium Patient-stated: Yes Description: Progress to be monitored through PHQ-9 screenings administered every 6 months during the care plan review. Disciplines: Interdisciplinary Next appointment: Scheduled next appointment for 11/02/24 at Other: telehealth. documented in this encounter [facility] Work Phone: 10-05-2024 History of Present illness Narrative Nida Francis engaged in a telehealth session via PHONE with this provider practicing within the [facility]. The identity of Nida was verified by their date of , (1980), and last four digits of their social security number, ([id number]). The provider demonstrated that confidentially was preserved at their location. Nida was informed that they were responsible for ensuring confidentially was secured at their location. Nida's location was documented for emergency purposes. Nida was informed of the necessary steps that would occur if an emergency was to occur or technology failed during session. COUNSELING PROGRESS NOTE Nida Francis is a 43 year old female here today for Individual Counseling Client identified feeling as if she is ignoring her problems by being involved in her work life. PC helped client to explore the therapeutic benefits of having to focus on work duties versus thinking of her ex, Guera. PC helped client to explored cognitions surrounding her involvement with her ex's friend. Exploratory and open ended questions utilized while assisting client to process the statement, He's a connection to who I used to be. PC assisted client to process if the involvement was a means to get back at her and his ex knowing both parties would be upset about their involvement.. A discusion surrounded ways the relationship could be healing and therapeutic or isolating and unhealthy. PC encouraged client to seek out community events over the summer now having a friendship that could support being involved in events. PC helped client to identify frequency,intensity and duration of thoughts surrounding her ex. I think about her all the time. I actually sent her a text and she responded, so now I can't delete her. She wasn't supposed to respond. PC provided client with an intervention to decrease and redirect rumination. PC acknowledged clients insight, I have those depressive thoughts that I think I'm reinforcing. Explored use of guided imagery, ()floating on a cloud.PC helped made a plan using pictures taken of nature , voice recorded affirmations and music to listen to at night to decrease rumination of her ex. SUBJECTIVE: Client appeared sad or depressed and nervous or anxious. Evaluated Safety and risk: N/A. OBJECTIVE: Assessment of Mood: anxiety, depressed mood, and feelings of worthlessness/guilt Discussed client's use of CBT. Goal from ISSP addressed during this session: Increase ability to manage anxiety and restore daily life roles and activities ASSESSMENT: Diagnosis: Visit Diagnosis ICD-9-CM ICD-10-CM 1. Bipolar II disorder ([facility]) Chronic 296.89 F31.81 2. Panic disorder 300.01 F41.0 Engaged client in learning Behavioral Analysis, Review of Thinking Errors and Cognitive Challenges, and Emotional Regulation Progress toward goal: Moderate Improvement PLAN: Assigned homework/practice of the following: see above note. Continue psychotherapy Current Care Plan Template: Counseling Care Plan Problem: Anxiety Disciplines: Interdisciplinary Goal: GOAL: Increase ability to manage anxiety and restore daily life roles and activities Dates: Start: 12/12/23 Expected End: 12/11/24 Priority: High Disciplines: Interdisciplinary Intervention: Assist the client in identifying at least one situation and patterns of thought which precede/maintain anxiety symptoms so the client may respond more adaptively to those situations and thoughts Dates: Start: 12/11/24 Description: PC will utilize various therapeutic modalities and interventions including CBT and DBT. Responsible: Ramses Allen LPC Goal: Objective: Explore and process antecedents, cognitions affecting mental health symptoms 1 x per session over the course of 1 year. Dates: Start: 11/12/22 Expected End: 11/13/23 Priority: High Description: Progress noted through PETE-7 scores. Screening to be completed every 6 months during the service plan review. CBT Disciplines: Interdisciplinary Goal: Objective: Identify, challenge and replace biased, fearful self-talk with reality-based, positive self-talk 1x per session over the course of 1 year Dates: Start: 12/12/23 Expected End: 12/11/24 Priority: High Description: Client will identify negative self talk and beliefs and replace with positive affirmations 1x during each counseling session. Disciplines: Interdisciplinary Problem: Depression Disciplines: Interdisciplinary Goal: GOAL: Alleviate depression and restore daily life roles and activities Dates: Start: 12/12/23 Expected End: 12/11/24 Priority: High Disciplines: Interdisciplinary Intervention: Clinician will teach client in the use of behavioral interventions through instruction, modeling, rehearsal, to develop skills and practice, review, and provide feedback for refining and consolidating use Dates: Start: 12/11/24 Description: PC will use behavioral activation strategies, DBT and CBT. Responsible: Ramses Allen LPC Goal: Objective: Explore and practice interventions to assist with coping, increasing self awareness 1 x per session over the course of 1 year Dates: Start: 12/12/23 Expected End: 12/11/24 Priority: Medium Description: Progress to be monitored through PHQ-9 screenings administered every 6 months during the care plan review. Disciplines: Interdisciplinary Next appointment: Scheduled next appointment for 10/19/24 at Other: telehealth. documented in this encounter [facility] Work Phone: 08-31-2024 History of Present illness Narrative Nida Francis engaged in a telehealth session via PHONE with this provider practicing within the [facility]. The identity of Nida was verified by their date of , (1980), and last four digits of their social security number, ([id number]). The provider demonstrated that confidentially was preserved at their location. Nida was informed that they were responsible for ensuring confidentially was secured at their location. Nida's location was documented for emergency purposes. Nida was informed of the necessary steps that would occur if an emergency was to occur or technology failed during session. COUNSELING PROGRESS NOTE Nida Francis is a 43 year old female here today for Individual Counseling. PC completed an emotional check-in. Client identified with feeling positive. PC positively reinforced client engaging in suggested interventions and utilizing guided positive affirmations nightly for symptom management. PC assisted client to explored relationship dynamics, ways to celebrate herself, place her needs above others. Modeling was utilized to assist client with learning effective communication strategies for self advocating her needs to others. PC assisted client to explore ways to replace unhealthy behaviors and to replace with healthier choices. PC assisted client to explore options available for replacing behaviors. SUBJECTIVE: Client appeared neutral or euthymic. Evaluated Safety and risk: N/A. OBJECTIVE: Assessment of Mood: anxiety and depressed mood Discussed client's use of CBT. Goal from ISSP addressed during this session: Increase ability to manage anxiety and restore daily life roles and activities ASSESSMENT: Diagnosis: Visit Diagnosis ICD-9-CM ICD-10-CM 1. Bipolar II disorder ([facility]) Chronic 296.89 F31.81 2. Panic disorder 300.01 F41.0 Engaged client in learning behavioral strategies Progress toward goal: Moderate Improvement PLAN: Assigned homework/practice of the following: Emotional Regulation and Self-Compassion. Continue psychotherapy Current Care Plan Template: Counseling Care Plan Problem: Anxiety Disciplines: Interdisciplinary Goal: GOAL: Increase ability to manage anxiety and restore daily life roles and activities Dates: Start: 12/12/23 Expected End: 12/11/24 Priority: High Disciplines: Interdisciplinary Intervention: Assist the client in identifying at least one situation and patterns of thought which precede/maintain anxiety symptoms so the client may respond more adaptively to those situations and thoughts Dates: Start: 12/11/24 Description: PC will utilize various therapeutic modalities and interventions including CBT and DBT. Responsible: Ramses Allen LPC Goal: Objective: Explore and process antecedents, cognitions affecting mental health symptoms 1 x per session over the course of 1 year. Dates: Start: 11/12/22 Expected End: 11/13/23 Priority: High Description: Progress noted through PETE-7 scores. Screening to be completed every 6 months during the service plan review. CBT Disciplines: Interdisciplinary Goal: Objective: Identify, challenge and replace biased, fearful self-talk with reality-based, positive self-talk 1x per session over the course of 1 year Dates: Start: 12/12/23 Expected End: 12/11/24 Priority: High Description: Client will identify negative self talk and beliefs and replace with positive affirmations 1x during each counseling session. Disciplines: Interdisciplinary Problem: Depression Disciplines: Interdisciplinary Goal: GOAL: Alleviate depression and restore daily life roles and activities Dates: Start: 12/12/23 Expected End: 12/11/24 Priority: High Disciplines: Interdisciplinary Intervention: Clinician will teach client in the use of behavioral interventions through instruction, modeling, rehearsal, to develop skills and practice, review, and provide feedback for refining and consolidating use Dates: Start: 12/11/24 Description: PC will use behavioral activation strategies, DBT and CBT. Responsible: Ramses Allen LPC Goal: Objective: Explore and practice interventions to assist with coping, increasing self awareness 1 x per session over the course of 1 year Dates: Start: 12/12/23 Expected End: 12/11/24 Priority: Medium Description: Progress to be monitored through PHQ-9 screenings administered every 6 months during the care plan review. Disciplines: Interdisciplinary Next appointment: Scheduled next appointment for 09/21/24 at Other: telehealth . documented in this encounter [facility] Work Phone: 08-17-2024 History of Present illness Narrative Nida Francis engaged in a telehealth session via VIDEO with this provider practicing within the [facility]. The identity of Nida was verified by their date of , (1980), and last four digits of their social security number, ([id number]). The provider demonstrated that confidentially was preserved at their location. Nida was informed that they were responsible for ensuring confidentially was secured at their location. Nida's location was documented for emergency purposes. Nida was informed of the necessary steps that would occur if an emergency was to occur or technology failed during session. COUNSELING PROGRESS NOTE Nida Francis is a 43 year old female here today for Individual Counseling Client identified feeling conflicted by the demands of her friend/ boyfriend that client is unsure of. He wants to get because there's nothing better to do. PC helped client to explore her values of a relationship. PC educated client on the need to have boundaries and independence in a relationship. PC helped client to explore cognitive distortions, rationalizations and negative I comments. PC educated client on the benefits of listening to guided positive affirmations daily and redirecting thoughts to an affirmation. PC assisted client to recognize behaviors client identified with her friend that signal disrespect. PC educated client on behaviors, identifying that inappropriate and controlling behaviors are signals of a potential dysfunctional relationship. PC helped client to explore ways to decrease loneliness and making impulsive decisions. PC helped client to explore ways to replace feeling alone and having negative thought patterns when going to sleep. PC assisted client to recognize the frequency of rationalizations to accept inappropriate behaviors PC helped client to explore symbolism of the tree of life and how it represents client's growth and healing. PC provided validation, unconditional positive regard, empathetic statements, reminded client of her strengths throughout the session. SUBJECTIVE: Client appeared sad or depressed. Client was tearful during the session Evaluated Safety and risk: N/A. OBJECTIVE: Assessment of Mood: anxiety and depressed mood Discussed client's use of CBT. Goal from ISSP addressed during this session: Alleviate depression and restore daily life roles and activities ASSESSMENT: Diagnosis: Visit Diagnosis ICD-9-CM ICD-10-CM 1. Bipolar II disorder ([facility]) Chronic 296.89 F31.81 2. Panic disorder 300.01 F41.0 Engaged client in learning Review of Thinking Errors and Cognitive Challenges, Emotional Regulation, and behavior Progress toward goal: Moderate Improvement PLAN: Assigned homework/practice of the following: Guided positive affirmations daily, recognise and redirect rationalizing other's behaviors . Continue psychotherapy Current Care Plan Template: Counseling Care Plan Problem: Anxiety Disciplines: Interdisciplinary Goal: GOAL: Increase ability to manage anxiety and restore daily life roles and activities Dates: Start: 12/12/23 Expected End: 12/11/24 Priority: High Disciplines: Interdisciplinary Intervention: Assist the client in identifying at least one situation and patterns of thought which precede/maintain anxiety symptoms so the client may respond more adaptively to those situations and thoughts Dates: Start: 12/11/24 Description: PC will utilize various therapeutic modalities and interventions including CBT and DBT. Responsible: Ramses Allen LPC Goal: Objective: Explore and process antecedents, cognitions affecting mental health symptoms 1 x per session over the course of 1 year. Dates: Start: 11/12/22 Expected End: 11/13/23 Priority: High Description: Progress noted through PETE-7 scores. Screening to be completed every 6 months during the service plan review. CBT Disciplines: Interdisciplinary Goal: Objective: Identify, challenge and replace biased, fearful self-talk with reality-based, positive self-talk 1x per session over the course of 1 year Dates: Start: 12/12/23 Expected End: 12/11/24 Priority: High Description: Client will identify negative self talk and beliefs and replace with positive affirmations 1x during each counseling session. Disciplines: Interdisciplinary Problem: Depression Disciplines: Interdisciplinary Goal: GOAL: Alleviate depression and restore daily life roles and activities Dates: Start: 12/12/23 Expected End: 12/11/24 Priority: High Disciplines: Interdisciplinary Intervention: Clinician will teach client in the use of behavioral interventions through instruction, modeling, rehearsal, to develop skills and practice, review, and provide feedback for refining and consolidating use Dates: Start: 12/11/24 Description: PC will use behavioral activation strategies, DBT and CBT. Responsible: Ramses Allen LPC Goal: Objective: Explore and practice interventions to assist with coping, increasing self awareness 1 x per session over the course of 1 year Dates: Start: 12/12/23 Expected End: 12/11/24 Priority: Medium Description: Progress to be monitored through PHQ-9 screenings administered every 6 months during the care plan review. Disciplines: Interdisciplinary Next appointment: Scheduled next appointment for 08/31/24 at Other: telehealth . documented in this encounter [facility] Work Phone: 08-13-2024 History of Present illness Narrative Nida Francis 1980 43 year old female [id number] August 13, 2024 HPI Patient is here for a wellness visit and physical examination has multiple medical problem denies any new complaint no chest pain shortness of breath or abdominal pain. Patient is due for a mammogram history of hypertension no visual changes dizziness or headache PAST MEDICAL HISTORY Diagnosis Date Asthma Bipolar 1 disorder (HCC) Borderline personality disorder (HCC) Cannabis dependence (HCC) Cerebral arteritis 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 vasculitis (HCC) CVA (cerebral vascular accident) ([facility]) Gallstones Generalized anxiety disorder GERD (gastroesophageal reflux disease) High cholesterol Hypertension Obesity Panic disorder without agoraphobia Pneumonia Psychiatric disorder anxiety, bi-polar PTSD (post-traumatic stress disorder) Restless leg syndrome Saccular aneurysm Sensorineural hearing loss Stroke ([facility]) 11/2015 Social History Tobacco Use Smoking status: Every Day Current packs/day: 1.00 Average packs/day: 1 pack/day for 13.0 years (13.0 ttl pk-yrs) Types: Cigarettes Smokeless tobacco: Never Vaping Use Vaping status: Never Used Substance Use Topics Alcohol use: No Drug use: Yes Types: Marijuana Comment: weekly FAMILY HISTORY Problem Relation Age of Onset Hypertension Mother Depression Mother Hypertension Father Depression Father other (crohns) Maternal Grandmother Cancer Paternal Grandfather Breast Cancer Other 50 PAST SURGICAL HISTORY Procedure Laterality Date DENTAL SURGERY HX wisdom teeth EGD DIAGNOSTIC LAPAROSCOPY SURG CHOLECYSTECTOMY 08/24/2017 MIDLINE INSERTION/CONSULT 08/21/2016 ORTHOPEDICS SURGERY HX right foot PICC LINE INSERT/CONSULT 12/19/2015 SIGMOIDOSCOPY R.O.S negative other than HPI & PMH all other SYS reviewed and negative. Current Outpatient Medications Medication Sig Dispense Refill gabapentin (NEURONTIN) 100 mg capsule Take 2 capsules by mouth three times a day for 30 days. 180 capsule 0 mycophenolate Mofetil (CELLCEPT) 500 mg tablet TAKE ONE (1) TABLET BY MOUTH TWICE DAILY *NEW PRESCRIPTION REQUEST* 180 tablet 10 rOPINIRole (REQUIP) 0.25 mg tablet TAKE 1 TABLET BY MOUTH EVERY DAY *NEW PRESCRIPTION REQUEST* 90 tablet 0 lamoTRIgine (LAMICTAL) 150 mg tablet TAKE ONE (1) TABLET BY MOUTH TWICE DAILY *NEW PRESCRIPTION REQUEST* 180 tablet 0 ondansetron orally disintegrating (ZOFRAN ODT) 4 mg disintegrating tablet Take 1 tablet by mouth every 8 hours as needed for nausea/vomiting. 20 tablet 0 atorvastatin (LIPITOR) 80 mg tablet TAKE 1 TABLET BY MOUTH EVERY DAY *NEW PRESCRIPTION REQUEST* [address] (PROTONIX) 40 mg tablet TAKE ONE (1) TABLET BY MOUTH TWICE DAILY *NEW PRESCRIPTION REQUEST* 180 tablet 0 amLODIPine (NORVASC) 5 mg tablet TAKE 1 TABLET BY MOUTH EVERY DAY *NEW PRESCRIPTION REQUEST* 90 tablet 0 metoprolol succinate ER (TOPROL XL) 50 mg 24 hr tablet TAKE 1 TABLET BY MOUTH EVERY DAY *NEW PRESCRIPTION REQUEST* 90 tablet 0 albuterol HFA (PROVENTIL HFA, VENTOLIN HFA) 90 mcg/actuation inhaler INHALE 1-2 PUFF(S) BY MOUTH EVERY 6 HOURS NEEDED *NEW PRESCRIPTION REQUEST* 33.5 g 0 ergocalciferol 50,000 unit capsule (VITAMIN D2, DRISDOL) TAKE 1 CAPSULE BY MOUTH ONCE WEEKLY *EMERGENCY REFILL* 4 capsule 2 acetaminophen (TYLENOL) 325 mg tablet Take 2 tablets by mouth every 6 hours. 0 No current facility-administered medications for this visit. DATA: CBC: No results for input(s): WBC, RBC, HB, HCT, PLT, MCV, MCH, MPV, RDW in the last 24 hours. CMP:No results for input(s): NA, K, CHLOR, CO2, BUN, CREAT, GLUC, TPROT, CA, MG, ALBUMIN, TBILI, ALKPHOS, ALT, AST, ANION in the last 24 hours. No results found for this basename: psa Cholesterol, Total (mg/dL) Date Value 07/12/2023 139 10/14/2020 147 HDL Cholesterol (mg/dL) Date Value 07/12/2023 60 10/14/2020 38 LDL Cholesterol (mg/dL) Date Value 07/12/2023 62 10/14/2020 90 Triglyceride (mg/dL) Date Value 07/12/2023 84 10/14/2020 96 Hemoglobin A1C (%) Date Value 10/14/2020 5.5 02/19/2019 5.5 11/10/2017 5.3 11/09/2017 5.2 11/08/2017 5.3 BP 124/62 Pulse 60 LMP 11/27/2023 (Approximate) SpO2 98% PHYSICAL EXAMINATION: General appearance: Well appearing, alert, in no acute distress, well-hydrated, well nourished. Skin: Skin color, texture, turgor normal, no suspicious rashes or lesions Head: Normocephalic, no masses, lesions, tenderness or abnormalities Eyes: Anicteric sclera. Pupils are equally round and reactive to light. Extraocular movements are intact. Ears: External ears normal, canals clear Nose/Sinuses: Nares normal, septum midline, mucosa normal, no drainage or sinus tenderness Oropharynx: Lips, mucosa, and tongue normal, teeth and gums normal, oropharynx normal Neck: Supple, no adenopathy; thyroid symmetric, normal size, no bruits Back: Normal exam Lungs: Lungs clear to auscultation. No wheezing, rhonchi, rales Heart: RRR without murmur, gallop, or rubs. No ectopy Abdomen: Normal abdominal exam, Abdomen soft, non-tender. Bowel sounds normal. No masses, organomegaly Extremities: No deformities, edema, skin discoloration, clubbing or cyanosis. Good capillary refill. Musculoskeletal: No joint swelling, deformity, or tenderness Peripheral pulses: Normal Neuro: No focal deficit/at baseline Feet: Pulses positive No sensory deficit Consultants notes reviewed Most recent CT/CXR reviewed Last EKG reviewed ASSESSMENT/PLAN: 1. Primary hypertension - ICD9: 401.9, ICD10: I10 (primary diagnosis) - Controlled - Recommend home blood pressure monitoring, to bring results to next visit - Encouraged sodium restriction, DASH or Mediterranean diet - Recommend regular aerobic exercise 2. Dietary counseling - ICD9: V65.3, ICD10: Z71.3 The patient is asked to make an attempt to improve diet and exercise patterns to aid in medical management of this problem. 3. Encounter for screening mammogram for malignant neoplasm of breast - ICD9: V76.12, ICD10: Z12.31 Referred to mammogram and [employer] for pelvic exam Felecia Ely MD documented in this encounter [facility] 07-24-2024 Telephone encounter Note Patient phones requesting refills as follows: Requested Prescriptions Pending Prescriptions Disp Refills gabapentin (NEURONTIN) 100 mg capsule 180 capsule 0 Sig: Take 2 capsules by mouth three times a day for 30 days. Please review and advise. Jeannette Diaz MA [facility] 07-24-2024 Miscellaneous Notes Patient phones requesting refills as follows: Requested Prescriptions Pending Prescriptions Disp Refills gabapentin (NEURONTIN) 100 mg capsule 180 capsule 0 Sig: Take 2 capsules by mouth three times a day for 30 days. Please review and advise. Jeannette Diaz MA documented in this encounter [facility] 07-17-2024 Telephone encounter Note Patient phones requesting refills as follows: Requested Prescriptions Pending Prescriptions Disp Refills rOPINIRole (REQUIP) 0.25 mg tablet [Pharmacy Med Name: ROPINIROLE 0.25MG TAB 0.25 Tablet] 90 tablet 0 Sig: TAKE 1 TABLET BY MOUTH EVERY DAY *NEW PRESCRIPTION REQUEST* lamoTRIgine (LAMICTAL) 150 mg tablet [Pharmacy Med Name: LAMOTRIGINE 150 MG TABLET 150 Tablet] 180 tablet 0 Sig: TAKE ONE (1) TABLET BY MOUTH TWICE DAILY *NEW PRESCRIPTION REQUEST* ondansetron orally disintegrating (ZOFRAN ODT) 4 mg disintegrating tablet [Pharmacy Med Name: ONDANSETRON 4MG ODT TAB 4 ODT] 20 tablet 0 Sig: Take 1 tablet by mouth every 8 hours as needed for nausea/vomiting. atorvastatin (LIPITOR) 80 mg tablet [Pharmacy Med Name: ATORVASTATIN 80 MG TABLET 80 Tablet] 90 tablet 0 Sig: TAKE 1 TABLET BY MOUTH EVERY DAY *NEW PRESCRIPTION REQUEST* pantoprazole DR (PROTONIX) 40 mg tablet [Pharmacy Med Name: PANTOPRAZOLE DR 40MG TAB 40 Tablet] 180 tablet 0 Sig: TAKE ONE (1) TABLET BY MOUTH TWICE DAILY *NEW PRESCRIPTION REQUEST* amLODIPine (NORVASC) 5 mg tablet [Pharmacy Med Name: AMLODIPINE 5MG TAB 5 Tablet] 90 tablet 0 Sig: TAKE 1 TABLET BY MOUTH EVERY DAY *NEW PRESCRIPTION REQUEST* metoprolol succinate ER (TOPROL XL) 50 mg 24 hr tablet [Pharmacy Med Name: METOPROLOL SUC ER 50MG TAB 50 Tablet] 90 tablet 0 Sig: TAKE 1 TABLET BY MOUTH EVERY DAY *NEW PRESCRIPTION REQUEST* albuterol HFA (PROVENTIL HFA, VENTOLIN HFA) 90 mcg/actuation inhaler [Pharmacy Med Name: ALBUTEROL HFA*PROV*90MCG 108 (90 BAS Aerosol] 33.5 g 0 Sig: INHALE 1-2 PUFF(S) BY MOUTH EVERY 6 HOURS NEEDED *NEW PRESCRIPTION REQUEST* Refused Prescriptions Disp Refills mycophenolate Mofetil (CELLCEPT) 500 mg tablet [Pharmacy Med Name: MYCOPHENOLATE 500 MG TABLET 500 Tablet] 180 tablet 10 Sig: TAKE ONE (1) TABLET BY MOUTH TWICE DAILY *NEW PRESCRIPTION REQUEST* Please review and advise. Jeannette Diaz MA T [facility] 07-17-2024 Miscellaneous Notes Patient phones requesting refills as follows: Requested Prescriptions Pending Prescriptions Disp Refills rOPINIRole (REQUIP) 0.25 mg tablet [Pharmacy Med Name: ROPINIROLE 0.25MG TAB 0.25 Tablet] 90 tablet 0 Sig: TAKE 1 TABLET BY MOUTH EVERY DAY *NEW PRESCRIPTION REQUEST* lamoTRIgine (LAMICTAL) 150 mg tablet [Pharmacy Med Name: LAMOTRIGINE 150 MG TABLET 150 Tablet] 180 tablet 0 Sig: TAKE ONE (1) TABLET BY MOUTH TWICE DAILY *NEW PRESCRIPTION REQUEST* ondansetron orally disintegrating (ZOFRAN ODT) 4 mg disintegrating tablet [Pharmacy Med Name: ONDANSETRON 4MG ODT TAB 4 ODT] 20 tablet 0 Sig: Take 1 tablet by mouth every 8 hours as needed for nausea/vomiting. atorvastatin (LIPITOR) 80 mg tablet [Pharmacy Med Name: ATORVASTATIN 80 MG TABLET 80 Tablet] 90 tablet 0 Sig: TAKE 1 TABLET BY MOUTH EVERY DAY *NEW PRESCRIPTION REQUEST* pantoprazole DR (PROTONIX) 40 mg tablet [Pharmacy Med Name: PANTOPRAZOLE DR 40MG TAB 40 Tablet] 180 tablet 0 Sig: TAKE ONE (1) TABLET BY MOUTH TWICE DAILY *NEW PRESCRIPTION REQUEST* amLODIPine (NORVASC) 5 mg tablet [Pharmacy Med Name: AMLODIPINE 5MG TAB 5 Tablet] 90 tablet 0 Sig: TAKE 1 TABLET BY MOUTH EVERY DAY *NEW PRESCRIPTION REQUEST* metoprolol succinate ER (TOPROL XL) 50 mg 24 hr tablet [Pharmacy Med Name: METOPROLOL SUC ER 50MG TAB 50 Tablet] 90 tablet 0 Sig: TAKE 1 TABLET BY MOUTH EVERY DAY *NEW PRESCRIPTION REQUEST* albuterol HFA (PROVENTIL HFA, VENTOLIN HFA) 90 mcg/actuation inhaler [Pharmacy Med Name: ALBUTEROL HFA*PROV*90MCG 108 (90 BAS Aerosol] 33.5 g 0 Sig: INHALE 1-2 PUFF(S) BY MOUTH EVERY 6 HOURS NEEDED *NEW PRESCRIPTION REQUEST* Refused Prescriptions Disp Refills mycophenolate Mofetil (CELLCEPT) 500 mg tablet [Pharmacy Med Name: MYCOPHENOLATE 500 MG TABLET 500 Tablet] 180 tablet 10 Sig: TAKE ONE (1) TABLET BY MOUTH TWICE DAILY *NEW PRESCRIPTION REQUEST* Please review and advise. Jeannette Diaz MA documented in this encounter [facility] 07-13-2024 History of Present illness Narrative Nida Francis engaged in a telehealth session via PHONE with this provider practicing within the [facility]. The identity of Nida was verified by their date of , (1980), and last four digits of their social security number, ([id number]). The provider demonstrated that confidentially was preserved at their location. Nida was informed that they were responsible for ensuring confidentially was secured at their location. Nida's location was documented for emergency purposes. Nida was informed of the necessary steps that would occur if an emergency was to occur or technology failed during session. COUNSELING PROGRESS NOTE Nida Francis is a 43 year old female here today for Individual Counseling Client stated, I got my anxiety sickness and ended up in the hospital for a few days. PC assisted client to explore triggers for the anxiety episode.I haven't reached out to her (ex ) for a while. I messaged her about instac[employer] and she answered me. I know she loves me, but she has to cut me out of her life. PC inquired if client has engaged in previously suggested interventions. Client denied and identified, I'm not motivated to join a CoDA group. PC educated client on symptoms of and to assist client on understand ongoing symptoms assisted client to complete a co-dependecy quiz. PC helped client to explore and process ways to maintain indepence within new relationships. PC assisted client to explore ways to set limits within a relationship that client continues to identify as dysfunctional, but is willing to pursue romantically. Relationship is with an the ex of her ex 's friend's . SUBJECTIVE: Client appeared sad or depressed and nervous or anxious. Evaluated Safety and risk: N/A. OBJECTIVE: Assessment of Mood: anxiety, denies suicidal ideation, and depressed mood Discussed client's use of CBT and Person Centered . Goal from ISSP addressed during this session: Increase ability to manage anxiety and restore daily life roles and activities ASSESSMENT: Diagnosis: Visit Diagnosis ICD-9-CM ICD-10-CM 1. Bipolar II disorder ([facility]) Chronic 296.89 F31.81 2. Posttraumatic stress disorder 309.81 F43.10 3. Panic disorder 300.01 F41.0 4. Unspecified mood (affective) disorder ([facility]) Chronic 296.90 F39 5. Bereavement reaction 309.0 F43.20 V62.89 Z63.4 6. Anxiety 300.00 F41.9 Engaged client in learning Review of Thinking Errors and Cognitive Challenges and Emotional Regulation Progress toward goal: No Change PLAN: Assigned homework/practice of the following: Review of Thinking Errors and Cognitive Challenges.Pod casts, educate on symptoms of Co-dependency Continue psychotherapy Current Care Plan Template: Counseling Care Plan Problem: Anxiety Disciplines: Interdisciplinary Goal: GOAL: Increase ability to manage anxiety and restore daily life roles and activities Dates: Start: 12/12/23 Expected End: 12/11/24 Priority: High Disciplines: Interdisciplinary Intervention: Assist the client in identifying at least one situation and patterns of thought which precede/maintain anxiety symptoms so the client may respond more adaptively to those situations and thoughts Dates: Start: 12/11/24 Description: PC will utilize various therapeutic modalities and interventions including CBT and DBT. Responsible: Ramses Allen LPC Goal: Objective: Explore and process antecedents, cognitions affecting mental health symptoms 1 x per session over the course of 1 year. Dates: Start: 11/12/22 Expected End: 11/13/23 Priority: High Description: Progress noted through PETE-7 scores. Screening to be completed every 6 months during the service plan review. CBT Disciplines: Interdisciplinary Goal: Objective: Identify, challenge and replace biased, fearful self-talk with reality-based, positive self-talk 1x per session over the course of 1 year Dates: Start: 12/12/23 Expected End: 12/11/24 Priority: High Description: Client will identify negative self talk and beliefs and replace with positive affirmations 1x during each counseling session. Disciplines: Interdisciplinary Problem: Depression Disciplines: Interdisciplinary Goal: GOAL: Alleviate depression and restore daily life roles and activities Dates: Start: 12/12/23 Expected End: 12/11/24 Priority: High Disciplines: Interdisciplinary Intervention: Clinician will teach client in the use of behavioral interventions through instruction, modeling, rehearsal, to develop skills and practice, review, and provide feedback for refining and consolidating use Dates: Start: 12/11/24 Description: PC will use behavioral activation strategies, DBT and CBT. Responsible: Ramses Allen LPC Goal: Objective: Explore and practice interventions to assist with coping, increasing self awareness 1 x per session over the course of 1 year Dates: Start: 12/12/23 Expected End: 12/11/24 Priority: Medium Description: Progress to be monitored through PHQ-9 screenings administered every 6 months during the care plan review. Disciplines: Interdisciplinary Next appointment: Scheduled next appointment for 07/27/24 at Other: telehealth . documented in this encounter [facility] Work Phone: 07-11-2024 History of Present illness Narrative Nida Francis 1980 43 year old female [id number] July 11, 2024 [facility] patient is following up status post hospitalization she was admitted to the hospital with nausea and vomiting the patient has a history of cannabis dependence the patient has improved she is also due for screening for depression she has intermittent pressure no suicidal ideation thoughts or plan she is under the care of a psychiatrist the patient also has a history of bipolar disorder history of COPD and she continues to smoke currently has no chest pain tightness or Pressure no shortness of breath the patient also has history of hypertension no visual changes dizziness or headache she is due for a mammogram Patient was discharged charged on July 03 contacted on July 04 updated medication list PAST MEDICAL HISTORY Diagnosis Date Asthma Bipolar 1 disorder (HCC) Borderline personality disorder (HCC) Cannabis dependence (HCC) Cerebral arteritis 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 vasculitis (HCC) CVA (cerebral vascular accident) (HCC) Gallstones Generalized anxiety disorder GERD (gastroesophageal reflux disease) High cholesterol Hypertension Obesity Panic disorder without agoraphobia Pneumonia Psychiatric disorder anxiety, bi-polar PTSD (post-traumatic stress disorder) Restless leg syndrome Saccular aneurysm Sensorineural hearing loss Stroke (HCC) 11/2015 Social History Tobacco Use Smoking status: Every Day Current packs/day: 1.00 Average packs/day: 1 pack/day for 13.0 years (13.0 ttl pk-yrs) Types: Cigarettes Smokeless tobacco: Never Vaping Use Vaping status: Never Used Substance Use Topics Alcohol use: No Drug use: Yes Types: Marijuana Comment: weekly FAMILY HISTORY Problem Relation Age of Onset Hypertension Mother Depression Mother Hypertension Father Depression Father other (crohns) Maternal Grandmother Cancer Paternal Grandfather Breast Cancer Other 50 PAST SURGICAL HISTORY Procedure Laterality Date DENTAL SURGERY HX wisdom teeth EGD DIAGNOSTIC LAPAROSCOPY SURG CHOLECYSTECTOMY 08/24/2017 MIDLINE INSERTION/CONSULT 08/21/2016 ORTHOPEDICS SURGERY HX right foot PICC LINE INSERT/CONSULT 12/19/2015 SIGMOIDOSCOPY R.O.S negative other than HPI & PMH all other SYS reviewed and negative. Current Outpatient Medications Medication Sig Dispense Refill rOPINIRole (REQUIP) 0.25 mg tablet Take 1 tablet by mouth daily at bedtime. [address] (PROTONIX) 40 mg tablet Take 1 tablet by mouth every 12 hours. 60 tablet 2 metoprolol succinate ER (TOPROL XL) 50 mg 24 hr tablet Take 1 tablet by mouth once daily. 30 tablet 2 lamoTRIgine (LAMICTAL) 150 mg tablet Take 1 tablet by mouth every 12 hours. 60 tablet 2 gabapentin (NEURONTIN) 100 mg capsule Take 2 capsules by mouth three times a day for 30 days. 180 capsule 0 ergocalciferol 50,000 unit capsule (VITAMIN D2, DRISDOL) TAKE 1 CAPSULE BY MOUTH ONCE WEEKLY *EMERGENCY REFILL* 4 capsule 2 atorvastatin (LIPITOR) 80 mg tablet TAKE 1 TABLET BY MOUTH ONCE DAILY 30 tablet 2 amLODIPine (NORVASC) 5 mg tablet Take 1 tablet by mouth once daily. 30 tablet 2 mycophenolate Mofetil (CELLCEPT) 500 mg tablet Take 2 tablets by mouth two times a day. 120 tablet 0 albuterol HFA (PROVENTIL HFA, VENTOLIN HFA) 90 mcg/actuation inhaler INHALE TWO (2) PUFFS EVERY 4 HOURS NEEDED FOR WHEEZING OR SHORTNESS OF BREATH 8.5 g 2 ondansetron orally disintegrating (ZOFRAN ODT) 4 mg disintegrating tablet Take 1 tablet by mouth every 6 hours as needed for nausea/vomiting. 8 tablet 0 acetaminophen (TYLENOL) 325 mg tablet Take 2 tablets by mouth every 6 hours. 0 No current facility-administered medications for this visit. DATA: CBC: No results for input(s): WBC, RBC, HB, HCT, PLT, MCV, MCH, MPV, RDW in the last 24 hours. CMP:No results for input(s): NA, K, CHLOR, CO2, BUN, CREAT, GLUC, TPROT, CA, MG, ALBUMIN, TBILI, ALKPHOS, ALT, AST, ANION in the last 24 hours. No results found for this basename: psa Cholesterol, Total (mg/dL) Date Value 07/12/2023 139 10/14/2020 147 HDL Cholesterol (mg/dL) Date Value 07/12/2023 60 10/14/2020 38 LDL Cholesterol (mg/dL) Date Value 07/12/2023 62 10/14/2020 90 Triglyceride (mg/dL) Date Value 07/12/2023 84 10/14/2020 96 Hemoglobin A1C (%) Date Value 10/14/2020 5.5 02/19/2019 5.5 11/10/2017 5.3 11/09/2017 5.2 11/08/2017 5.3 BP 123/72 Pulse 82 LMP 11/27/2023 (Approximate) SpO2 95% PHYSICAL EXAMINATION: General appearance: Well appearing, alert, in no acute distress, well-hydrated, well nourished. Skin: Skin color, texture, turgor normal, no suspicious rashes or lesions Head: Normocephalic, no masses, lesions, tenderness or abnormalities Eyes: Anicteric sclera. Pupils are equally round and reactive to light. Extraocular movements are intact. Ears: External ears normal, canals clear Nose/Sinuses: Nares normal, septum midline, mucosa normal, no drainage or sinus tenderness Oropharynx: Lips, mucosa, and tongue normal, teeth and gums normal, oropharynx normal Neck: Supple, no adenopathy; thyroid symmetric, normal size, no bruits Back: Normal exam Lungs: Lungs clear to auscultation. No wheezing, rhonchi, rales Heart: RRR without murmur, gallop, or rubs. No ectopy Abdomen: Normal abdominal exam, Abdomen soft, non-tender. Bowel sounds normal. No masses, organomegaly Extremities: No deformities, edema, skin discoloration, clubbing or cyanosis. Good capillary refill. Musculoskeletal: No joint swelling, deformity, or tenderness Peripheral pulses: Normal Neuro: No focal deficit/at baseline Feet: Pulses positive No sensory deficit Consultants notes reviewed Most recent CT/CXR reviewed Last EKG reviewed ASSESSMENT/PLAN: 1. Cannabis dependence (HCC) - ICD9: 304.30, ICD10: F12.20 (primary diagnosis) Advised to quit discussed with the patient importance of quitting discussed with the patient complication 2. Nausea and vomiting, unspecified vomiting type - ICD9: 787.01, ICD10: R11.2 Seem to be improving recommend GI evaluation consult for a follow-up evaluation for EGD 3. Screening for depression - ICD9: V79.0, ICD10: Z13.31 Screening follow-up psychiatrist 4. Severe depressed bipolar I disorder with psychotic features (HCC) - ICD9: 296.54, ICD10: F31.5 As above follow-up with the psychiatrist continue the current regimen of treatment for the 5. Dietary counseling - ICD9: V65.3, ICD10: Z71.3 The patient is asked to make an attempt to improve diet and exercise patterns to aid in medical management of this problem. 6. Chronic obstructive pulmonary disease, unspecified COPD type (HCC) - ICD9: 496, ICD10: J44.9 PFTs smoke cessation 7. Primary hypertension - ICD9: 401.9, ICD10: I10 - Controlled - Recommend home blood pressure monitoring, to bring results to next visit - Encouraged sodium restriction, DASH or Mediterranean diet - Recommend regular aerobic exercise 8. Breast CA list complications discussed with the patient. Difficulty in treatment in advanced cases with the risk of METS has been discussed. Recommend yearly mammogram and monthly self-exam and to call if any lumps felt. Patient agreed; Referral given Felecia Ely MD documented in this encounter [facility] 07-11-2024 Telephone encounter Note Patient phones requesting refills as follows: Requested Prescriptions Pending Prescriptions Disp Refills rOPINIRole (REQUIP) 0.25 mg tablet 30 tablet 2 Sig: Take 1 tablet by mouth daily at bedtime. pantoprazole DR (PROTONIX) 40 mg tablet 60 tablet 2 Sig: Take 1 tablet by mouth every 12 hours. metoprolol succinate ER (TOPROL XL) 50 mg 24 hr tablet 30 tablet 2 Sig: Take 1 tablet by mouth once daily. lamoTRIgine (LAMICTAL) 150 mg tablet 60 tablet 2 Sig: Take 1 tablet by mouth every 12 hours. gabapentin (NEURONTIN) 100 mg capsule 180 capsule 0 Sig: Take 2 capsules by mouth three times a day for 30 days. ergocalciferol 50,000 unit capsule (VITAMIN D2, DRISDOL) 4 capsule 2 Sig: TAKE 1 CAPSULE BY MOUTH ONCE WEEKLY *EMERGENCY REFILL* atorvastatin (LIPITOR) 80 mg tablet 30 tablet 2 Sig: TAKE 1 TABLET BY MOUTH ONCE DAILY amLODIPine (NORVASC) 5 mg tablet 30 tablet 2 Sig: Take 1 tablet by mouth once daily. Please review and advise. Jeannette Diaz MA [facility] 07-11-2024 Miscellaneous Notes Patient phones requesting refills as follows: Requested Prescriptions Pending Prescriptions Disp Refills rOPINIRole (REQUIP) 0.25 mg tablet 30 tablet 2 Sig: Take 1 tablet by mouth daily at bedtime. pantoprazole DR (PROTONIX) 40 mg tablet 60 tablet 2 Sig: Take 1 tablet by mouth every 12 hours. metoprolol succinate ER (TOPROL XL) 50 mg 24 hr tablet 30 tablet 2 Sig: Take 1 tablet by mouth once daily. lamoTRIgine (LAMICTAL) 150 mg tablet 60 tablet 2 Sig: Take 1 tablet by mouth every 12 hours. gabapentin (NEURONTIN) 100 mg capsule 180 capsule 0 Sig: Take 2 capsules by mouth three times a day for 30 days. ergocalciferol 50,000 unit capsule (VITAMIN D2, DRISDOL) 4 capsule 2 Sig: TAKE 1 CAPSULE BY MOUTH ONCE WEEKLY *EMERGENCY REFILL* atorvastatin (LIPITOR) 80 mg tablet 30 tablet 2 Sig: TAKE 1 TABLET BY MOUTH ONCE DAILY amLODIPine (NORVASC) 5 mg tablet 30 tablet 2 Sig: Take 1 tablet by mouth once daily. Please review and advise. Jeannette Diaz MA documented in this encounter [facility] 07-03-2024 Radiology Diagnostic study note [facility] Imaging Services [address] [address] Abdomen/Pelvis W IV Cont ONLY MR#: [id number] Acct: [id number] Name: NIDA FRANCIS Rep #: [id number] : 1980 F 43 From: Virgilio Alejo MD PCP: FELECIA ELY Status: REG ER Study:Abdomen/Pelvis W IV Cont ONLY Date of E xam: 07/03/24 Exam# [id number] Ordering Dr: Marycruz Vaz DO PROCEDURE: ABDOMEN/PELVIS W IV CONT ONLY REASON FOR EXAM: ABD PAIN TECHNIQUE: Abdomen and pelvis CT with intravenous contrast. Coronal and sagittal reformatted images IV CONTRAST: 94 cc Isovue 370 COMPARISON: None. FINDINGS: Lung bases: Clear Liver: Unremarkable. Gallbladder: Status post cholecystectomy. Spleen: Unremarkable. Pancreas: Unremarkable. Adrenals: Unremarkable. Kidneys: Unremarkable. Bladder: Collapsed. Reproductive Organs: A couple of follicular cyst right ovary measuring up to 1.9cm. No adjacent free fluid seen. Left ovary and uterus appear within limits Bowel: No bowel dilation, free air or free fluid.. Appendix: Normal caliber without secondary signs. Lymph nodes: No suspicious lymph node enlargement. Vasculature: Major vascular structures are unremarkable. Peritoneum / Retroperitoneum: No ascites. No free air. Bones: Right acetabular subchondral cyst axial 135. CT/Abdomen/Pelvis W IV Cont ONLY IMPRESSION: Study appears within limits as above. Status post cholecystectomy. One or more dose reduction techniques were used (e.g., Automated exposure control, adjustment of the mA and/or kV according to patient size, use of iterative reconstruction technique). Reading Location: [id number] CC: FELECIA ELY; Moses Vaz DO ~ Agency Recruiter: Signed [facility] 06-22-2024 History of Present illness Narrative Nida Francis engaged in a telehealth session via PHONE with this provider practicing within the [facility]. The identity of Nida was verified by their date of , (1980), and last four digits of their social security number, ([id number]). The provider demonstrated that confidentially was preserved at their location. Nida was informed that they were responsible for ensuring confidentially was secured at their location. Nida's location was documented for emergency purposes. Nida was informed of the necessary steps that would occur if an emergency was to occur or technology failed during session. COUNSELING PROGRESS NOTE Nida Francis is a 43 year old female here today for Individual Counseling. Client identified with feeling stressed but positive. PC provided active listening, unconditional positive regard as client identified current stressors involving her child, financial issues, housing and transportation issues impacting her employment. PC helped client to process and explore a recent interaction with her child whom made hurtful comments toward client. PC helped client to explore the event with an empathetic point of view and positively reinforced client's insight into her child's current struggles. PC provided support as client identified concerns for her child. PC assisted client to explore her choices for housing and positively reinforced client's plan to stay with her mother while becoming financially stable before finding new housing. PC provided supportive statements, validation and empathetic statements as client described her decision to give her cats away, because she cannot bring them to her mother's home and her son is unwilling to keep the cats until client is financially stable and in new housing. SUBJECTIVE: Client appeared neutral or euthymic. Evaluated Safety and risk: N/A. OBJECTIVE: Assessment of Mood: anxiety and depressed mood Discussed client's use of CBT. Goal from ISSP addressed during this session: Alleviate depression and restore daily life roles and activities Increase ability to manage anxiety and restore daily life roles and activities ASSESSMENT: Diagnosis: Visit Diagnosis ICD-9-CM ICD-10-CM 1. Bipolar II disorder ([facility]) Chronic 296.89 F31.81 2. Posttraumatic stress disorder 309.81 F43.10 3. Panic disorder 300.01 F41.0 4. Unspecified mood (affective) disorder ([facility] [facility]) Chronic 296.90 F39 5. Bereavement reaction 309.0 F43.20 V62.89 Z63.4 6. Anxiety 300.00 F41.9 Engaged client in learning processing choices and family dynamics Progress toward goal: Moderate Improvement PLAN: Assigned homework/practice of the following: N/A at this time . Continue psychotherapy Current Care Plan Template: Counseling Care Plan Problem: Anxiety Disciplines: Interdisciplinary Goal: GOAL: Increase ability to manage anxiety and restore daily life roles and activities Dates: Start: 12/12/23 Expected End: 12/11/24 Priority: High Disciplines: Interdisciplinary Intervention: Assist the client in identifying at least one situation and patterns of thought which precede/maintain anxiety symptoms so the client may respond more adaptively to those situations and thoughts Dates: Start: 12/11/24 Description: PC will utilize various therapeutic modalities and interventions including CBT and DBT. Responsible: Ramses Allen LPC Goal: Objective: Explore and process antecedents, cognitions affecting mental health symptoms 1 x per session over the course of 1 year. Dates: Start: 11/12/22 Expected End: 11/13/23 Priority: High Description: Progress noted through PETE-7 scores. Screening to be completed every 6 months during the service plan review. CBT Disciplines: Interdisciplinary Goal: Objective: Identify, challenge and replace biased, fearful self-talk with reality-based, positive self-talk 1x per session over the course of 1 year Dates: Start: 12/12/23 Expected End: 12/11/24 Priority: High Description: Client will identify negative self talk and beliefs and replace with positive affirmations 1x during each counseling session. Disciplines: Interdisciplinary Problem: Depression Disciplines: Interdisciplinary Goal: GOAL: Alleviate depression and restore daily life roles and activities Dates: Start: 12/12/23 Expected End: 12/11/24 Priority: High Disciplines: Interdisciplinary Intervention: Clinician will teach client in the use of behavioral interventions through instruction, modeling, rehearsal, to develop skills and practice, review, and provide feedback for refining and consolidating use Dates: Start: 12/11/24 Description: PC will use behavioral activation strategies, DBT and CBT. Responsible: Ramses Allen LPC Goal: Objective: Explore and practice interventions to assist with coping, increasing self awareness 1 x per session over the course of 1 year Dates: Start: 12/12/23 Expected End: 12/11/24 Priority: Medium Description: Progress to be monitored through PHQ-9 screenings administered every 6 months during the care plan review. Disciplines: Interdisciplinary Next appointment: Scheduled next appointment for 07/13/24 at Other: telehealth . documented in this encounter [facility] Work Phone: 06-13-2024 History of Present illness Narrative Addended by: PHILIP MCCRAY on: 06/13/2024 12:59 PM Modules accepted: Level of Service Nida Francis engaged in a telehealth session via PHONE with this provider practicing within the [facility]. The identity of Nida was verified by their date of , (1980), and last four digits of their social security number, ([id number]). The provider demonstrated that confidentially was preserved at their location. Nida was informed that they were responsible for ensuring confidentially was secured at their location. Nida's location was documented for emergency purposes. Nida was informed of the necessary steps that would occur if an emergency was to occur or technology failed during session. COUNSELING PROGRESS NOTE Nida Francis is a 42 year old female here today for Individual Counseling/Couples Counseling. Reviewed progress since last couples session. Assessed changes since last session for CL and Partner and monitored current stressors. Provided active listening and supportive feedback. Assisted CL and RI in processing different perceptions of their relationship. Discussed how CL and RI keep focusing venting the problems and not focusing on identifying some solutions. CL reported that tentatively things are good and RI reported that she asked for a divorce. CL stated this reaction is her RI's response when not feeling heard or validated. CL and RI described unresolved conflicts that led to sustained, long periods of distrust and alienation from each other. RI feels CL doesn't validate what she went through in the the past. CL verbalized that RI doesn't accept how the strokes impacted her ability to remember the past. RI recognized that new exposure to therapy has made her more aware of her internal and emotional trauma from the past impacting current relationship. SUBJECTIVE: Client appeared sad or depressed, nervous or anxious, and irritated or angry. Evaluated Safety and risk: N/A. OBJECTIVE: Assessment of Mood: anxiety, depressed mood, and frustration. Discussed client's use of CBT, Solution Focused Therapy, and Couples Therapy . Goal from ISSP addressed during this session: improve functioning and more effectively manage symptoms of anxiety, anger and depression. ASSESSMENT: Diagnosis: F43.20,Z63.4 Bereavement reaction (primary encounter diagnosis) F41.9 Anxiety Engaged client in learning/reviewing Behavioral Analysis, Review of Thinking Errors and Cognitive Challenges, Emotional Regulation, Effective Communication, and Self-Care, Bibliotherapy. Progress toward goal: No Change PLAN: Assigned homework/practice of the following: Behavioral Analysis, Review of Thinking Errors and Cognitive Challenges, Emotional Regulation, Effective Communication, and Self-Care, Bibliotherapy. CL and RI will use Dance of Anger, Dance of Connection, Feel the Fear and Do It Anyway, and How To Make Love All the Time and free dayanara Insight Timer for meditations to address their PTSD, anger, anxiety and depression symptoms. CL and RI will practice intuitive couples exercise to connect w/o speech. Continue psychotherapy Current Service Plan Service Plan Mental Health To provide counseling to minimize symptoms of depression and anxiety Client's symptoms will decrease by 10% over the next 6 month indicated by the PHQ-9 and PETE-7 results Current Care Plan There are no care plans that you recently modified to display for this patient. Next appointment: Scheduled next appointment for 06-21-23 @ 6:45 PM at [facility] documented in this encounter [facility] Work Phone: 06-08-2024 History of Present illness Narrative Nida Francis engaged in a telehealth session via PHONE with this provider practicing within the [facility]. The identity of Nida was verified by their date of , (1980), and last four digits of their social security number, ([id number]). The provider demonstrated that confidentially was preserved at their location. Nida was informed that they were responsible for ensuring confidentially was secured at their location. Nida's location was documented for emergency purposes. Nida was informed of the necessary steps that would occur if an emergency was to occur or technology failed during session. COUNSELING PROGRESS NOTE Nida Francis is a 43 year old female here today for Individual Counseling Client continues to have difficulty with the loss of her marriage. I had a moment because today is thompson's day and Guera is still not talking to me. I don't think that I will understand what happened. PC provided unconditional positive regard, validation and empathetic statements. PC assisted client to explore support groups, yoga, online groups to further support client's grief. PC reminded client of CoDA meetings and encouraged client to join an online meeting. PC helped client to explore current coping strategies and distraction techniques. Client stated she would like to return to reading, but identified her books were in storage. PC encouraged client to visit the library and recommended several books by Pia Asher. PC provided client with community resources of [employer] for affordable care for her cats after client stated she may have to return her cats to the custodial.PC assisted client to reduce stress and anxiety by outreaching [employer] to assist client with Medicaid renewal as client lost benefits several months ago. PC additionally outreached [employer] to assist with client's current bill. SUBJECTIVE: Client appeared neutral or euthymic. Evaluated Safety and risk: N/A. OBJECTIVE: Assessment of Mood: anxiety and depressed mood Discussed client's use of Solution Focused Therapy and Supportive Therapy . Goal from ISSP addressed during this session: Increase ability to manage anxiety and restore daily life roles and activities ASSESSMENT: Diagnosis: Visit Diagnosis ICD-9-CM ICD-10-CM 1. Bipolar II disorder ([facility]) Chronic 296.89 F31.81 2. Posttraumatic stress disorder 309.81 F43.10 3. Panic disorder 300.01 F41.0 4. Unspecified mood (affective) disorder ([facility]) Chronic 296.90 F39 5. Bereavement reaction 309.0 F43.20 V62.89 Z63.4 6. Anxiety 300.00 F41.9 Engaged client in learning Emotional Regulation Progress toward goal: Moderate Improvement PLAN: Assigned homework/practice of the following: see above . Continue psychotherapy Current Care Plan Template: Counseling Care Plan Problem: Anxiety Disciplines: Interdisciplinary Goal: GOAL: Increase ability to manage anxiety and restore daily life roles and activities Dates: Start: 12/12/23 Expected End: 12/11/24 Priority: High Disciplines: Interdisciplinary Intervention: Assist the client in identifying at least one situation and patterns of thought which precede/maintain anxiety symptoms so the client may respond more adaptively to those situations and thoughts Dates: Start: 12/11/24 Description: PC will utilize various therapeutic modalities and interventions including CBT and DBT. Responsible: Ramses Allen LPC Goal: Objective: Explore and process antecedents, cognitions affecting mental health symptoms 1 x per session over the course of 1 year. Dates: Start: 11/12/22 Expected End: 11/13/23 Priority: High Description: Progress noted through PETE-7 scores. Screening to be completed every 6 months during the service plan review. CBT Disciplines: Interdisciplinary Goal: Objective: Identify, challenge and replace biased, fearful self-talk with reality-based, positive self-talk 1x per session over the course of 1 year Dates: Start: 12/12/23 Expected End: 12/11/24 Priority: High Description: Client will identify negative self talk and beliefs and replace with positive affirmations 1x during each counseling session. Disciplines: Interdisciplinary Problem: Depression Disciplines: Interdisciplinary Goal: GOAL: Alleviate depression and restore daily life roles and activities Dates: Start: 12/12/23 Expected End: 12/11/24 Priority: High Disciplines: Interdisciplinary Intervention: Clinician will teach client in the use of behavioral interventions through instruction, modeling, rehearsal, to develop skills and practice, review, and provide feedback for refining and consolidating use Dates: Start: 12/11/24 Description: PC will use behavioral activation strategies, DBT and CBT. Responsible: Ramses Allen LPC Goal: Objective: Explore and practice interventions to assist with coping, increasing self awareness 1 x per session over the course of 1 year Dates: Start: 12/12/23 Expected End: 12/11/24 Priority: Medium Description: Progress to be monitored through PHQ-9 screenings administered every 6 months during the care plan review. Disciplines: Interdisciplinary Next appointment: Scheduled next appointment for 06/19/24 at Other: telehealth . documented in this encounter [facility] Work Phone: 05-25-2024 History of Present illness Narrative Nida Francis engaged in a telehealth session via PHONE with this provider practicing within the [facility]. The identity of Nida was verified by their date of , (1980), and last four digits of their social security number, ([id number]). The provider demonstrated that confidentially was preserved at their location. Nida was informed that they were responsible for ensuring confidentially was secured at their location. Nida's location was documented for emergency purposes. Nida was informed of the necessary steps that would occur if an emergency was to occur or technology failed during session. COUNSELING PROGRESS NOTE Nida Francis is a 43 year old female here today for Individual Counseling PC completed an emotional check-in. Client identified with feeling positive after moving into her mother's home temporarily. PC supported and validated client's ability to engage in gratitude while feeling welcome in her mother's home. PC assisted client to explore ways to decrease feelings of loneliness. PC assisted client to challenge thoughts impacting feelings of loneliness. I feel like I'm able to combat my mood living here (with my mom). PC assisted client to explore the pros and cons of moving into her own apartment or with a friend who continues to change his mind about moving. PC helped client to explore thoughts and pros and cons of moving outside of the county to be closer to her family. PC provided client with information of housing assistance and provided client with 3 apartments listed which client can afford in her desired area. SUBJECTIVE: Client appeared neutral or euthymic, sad or depressed, and nervous or anxious. Evaluated Safety and risk: N/A. OBJECTIVE: Assessment of Mood: anxiety Discussed client's use of CBT. Goal from ISSP addressed during this session: Increase ability to manage anxiety and restore daily life roles and activities ASSESSMENT: Diagnosis: Visit Diagnosis ICD-9-CM ICD-10-CM 1. Bipolar II disorder ([facility]) Chronic 296.89 F31.81 2. Posttraumatic stress disorder 309.81 F43.10 3. Panic disorder 300.01 F41.0 4. Unspecified mood (affective) disorder ([facility]) Chronic 296.90 F39 5. Bereavement reaction 309.0 F43.20 V62.89 Z63.4 6. Anxiety 300.00 F41.9 Engaged client in learning Emotional Regulation Progress toward goal: Moderate Improvement PLAN: Assigned homework/practice of the following: Review of Thinking Errors and Cognitive Challenges. Continue psychotherapy Current Care Plan Template: Counseling Care Plan Problem: Anxiety Disciplines: Interdisciplinary Goal: GOAL: Increase ability to manage anxiety and restore daily life roles and activities Dates: Start: 12/12/23 Expected End: 12/11/24 Priority: High Disciplines: Interdisciplinary Intervention: Assist the client in identifying at least one situation and patterns of thought which precede/maintain anxiety symptoms so the client may respond more adaptively to those situations and thoughts Dates: Start: 12/11/24 Description: PC will utilize various therapeutic modalities and interventions including CBT and DBT. Responsible: Ramses Allen LPC Goal: Objective: Explore and process antecedents, cognitions affecting mental health symptoms 1 x per session over the course of 1 year. Dates: Start: 11/12/22 Expected End: 11/13/23 Priority: High Description: Progress noted through PETE-7 scores. Screening to be completed every 6 months during the service plan review. CBT Disciplines: Interdisciplinary Goal: Objective: Identify, challenge and replace biased, fearful self-talk with reality-based, positive self-talk 1x per session over the course of 1 year Dates: Start: 12/12/23 Expected End: 12/11/24 Priority: High Description: Client will identify negative self talk and beliefs and replace with positive affirmations 1x during each counseling session. Disciplines: Interdisciplinary Problem: Depression Disciplines: Interdisciplinary Goal: GOAL: Alleviate depression and restore daily life roles and activities Dates: Start: 12/12/23 Expected End: 12/11/24 Priority: High Disciplines: Interdisciplinary Intervention: Clinician will teach client in the use of behavioral interventions through instruction, modeling, rehearsal, to develop skills and practice, review, and provide feedback for refining and consolidating use Dates: Start: 12/11/24 Description: PC will use behavioral activation strategies, DBT and CBT. Responsible: Ramses Allen LPC Goal: Objective: Explore and practice interventions to assist with coping, increasing self awareness 1 x per session over the course of 1 year Dates: Start: 12/12/23 Expected End: 12/11/24 Priority: Medium Description: Progress to be monitored through PHQ-9 screenings administered every 6 months during the care plan review. Disciplines: Interdisciplinary Next appointment: Scheduled next appointment for 06/08/24 at Other: telehealth . documented in this encounter [facility] Work Phone: 05-11-2024 History of Present illness Narrative Nida Francis engaged in a telehealth session via PHONE with this provider practicing within the [facility]. The identity of Nida was verified by their date of , (1980), and last four digits of their social security number, ([id number]). The provider demonstrated that confidentially was preserved at their location. Nida was informed that they were responsible for ensuring confidentially was secured at their location. Nida's location was documented for emergency purposes. Nida was informed of the necessary steps that would occur if an emergency was to occur or technology failed during session. COUNSELING PROGRESS NOTE Nida Francis is a 43 year old female here today for Individual Counseling Client stated, I feel numb. I feel like I'm an outcast and don't belong. Client has still not found housing due to finances and being scammed out a housing opportunity. PC provided active listening, support, validation as client described behaviors and cognitions surrounding her divorce. Client identified she was writing a letter to her ex. PC assisted client to explore the pros and cons of sending a letter to Guera. PC helped client to explore and process the function of the behavior of reaching out. It scares me, she's cut me out completely out of her life; I have a panic attack when I think of not having her in my life. PC assisted client to explore negative cognitions, thoughts driving her fears, explored cognitive distortions and co-dependency behaviors. PC modeled ways to shape thoughts and educated client on ways to reshape behaviors. PC helped client to explore client's outlook in life and the statement, Our (Guera and client) lives are now in the toilet. PC helped client explore finding new purpose in life. My life has been about Guera for over 20 years. PC educated client on CODA, and provided information on meetings. PC assisted client explore interests of what in the past had brought zechariah to client. PC positively reinforced client's interests, I like to collect things. PC assisted client to explore ideas of returning to the activity which could also assist with symptom management. PC helped client to explore social activities and ways to engage in the activities with decrease social anxiety. SUBJECTIVE: Client appeared sad or depressed and nervous or anxious. Evaluated Safety and risk: N/A. OBJECTIVE: Assessment of Mood: anxiety, depressed mood, feelings of worthlessness/guilt, and hopelessness Assisted client through CBT and Supportive Therapy, Person Centered . Goal from ISSP addressed during this session: Increase ability to manage anxiety and restore daily life roles and activities ASSESSMENT: Diagnosis: Visit Diagnosis ICD-9-CM ICD-10-CM 1. Bipolar II disorder ([facility]) Chronic 296.89 F31.81 2. Posttraumatic stress disorder 309.81 F43.10 3. Panic disorder 300.01 F41.0 4. Unspecified mood (affective) disorder ([facility]) Chronic 296.90 F39 5. Bereavement reaction 309.0 F43.20 V62.89 Z63.4 6. Anxiety 300.00 F41.9 Engaged client in learning Behavioral Analysis, Review of Thinking Errors and Cognitive Challenges, Emotional Regulation, Self-Compassion, and Tolerating Distress Progress toward goal: Minimal Improvement PLAN: Assigned homework/practice of the following: Review of Thinking Errors and Cognitive Challenges and Self-Compassion, reshaping nehative thinking patterns, seeking out social activities and beginning a collection of client's choice. Continue psychotherapy Current Care Plan Template: Counseling Care Plan Problem: Anxiety Disciplines: Interdisciplinary Goal: GOAL: Increase ability to manage anxiety and restore daily life roles and activities Dates: Start: 12/12/23 Expected End: 12/11/24 Priority: High Disciplines: Interdisciplinary Intervention: Assist the client in identifying at least one situation and patterns of thought which precede/maintain anxiety symptoms so the client may respond more adaptively to those situations and thoughts Dates: Start: 12/11/24 Description: PC will utilize various therapeutic modalities and interventions including CBT and DBT. Responsible: Ramses Allen LPC Goal: Objective: Explore and process antecedents, cognitions affecting mental health symptoms 1 x per session over the course of 1 year. Dates: Start: 11/12/22 Expected End: 11/13/23 Priority: High Description: Progress noted through PETE-7 scores. Screening to be completed every 6 months during the service plan review. CBT Disciplines: Interdisciplinary Goal: Objective: Identify, challenge and replace biased, fearful self-talk with reality-based, positive self-talk 1x per session over the course of 1 year Dates: Start: 12/12/23 Expected End: 12/11/24 Priority: High Description: Client will identify negative self talk and beliefs and replace with positive affirmations 1x during each counseling session. Disciplines: Interdisciplinary Problem: Depression Disciplines: Interdisciplinary Goal: GOAL: Alleviate depression and restore daily life roles and activities Dates: Start: 12/12/23 Expected End: 12/11/24 Priority: High Disciplines: Interdisciplinary Intervention: Clinician will teach client in the use of behavioral interventions through instruction, modeling, rehearsal, to develop skills and practice, review, and provide feedback for refining and consolidating use Dates: Start: 12/11/24 Description: PC will use behavioral activation strategies, DBT and CBT. Responsible: Ramses Allen LPC Goal: Objective: Explore and practice interventions to assist with coping, increasing self awareness 1 x per session over the course of 1 year Dates: Start: 12/12/23 Expected End: 12/11/24 Priority: Medium Description: Progress to be monitored through PHQ-9 screenings administered every 6 months during the care plan review. Disciplines: Interdisciplinary Next appointment: Scheduled next appointment for 05/25/24 at Other: telehealth . documented in this encounter [facility] Work Phone: 04-27-2024 History of Present illness Narrative Nida Francis engaged in a telehealth session via VIDEO with this provider practicing within the [facility]. The identity of Nida was verified by their date of , (1980), and last four digits of their social security number, ([id number]). The provider demonstrated that confidentially was preserved at their location. Nida was informed that they were responsible for ensuring confidentially was secured at their location. Nida's location was documented for emergency purposes. Nida was informed of the necessary steps that would occur if an emergency was to occur or technology failed during session. COUNSELING PROGRESS NOTE Nida Francis is a 43 year old female here today for Individual Counseling.PC completed an emotional check-in I'm gab numb right. PC assisted client to explore ways to set boundaries within a new relationship. PC helped client to explore current stressors and assisted client to explore and problem solve current moving option. I have to be out of her at the end of the month. PC provided support, active listening as client described barriers to finding an apartment. PC helped client to explore the pros and cons with moving in with a friend that may or may not respect client's boundaries. PC helped client maximiliano explore ways to establish boundaries and thoughts of making a written contracts. PC provided support as client described loss, grief and changes in family dynamics due to loss within the family unit. SUBJECTIVE: Client appeared sad or depressed and nervous or anxious. Evaluated Safety and risk: N/A. OBJECTIVE: Assessment of Mood: anxiety and depressed mood Discussed client's use of CBT, Solution Focused Therapy, and Supportive Therapy . Goal from ISSP addressed during this session: Increase ability to manage anxiety and restore daily life roles and activities ASSESSMENT: Diagnosis: Visit Diagnosis ICD-9-CM ICD-10-CM 1. Bipolar II disorder ([facility]) Chronic 296.89 F31.81 2. Posttraumatic stress disorder 309.81 F43.10 3. Panic disorder 300.01 F41.0 4. Unspecified mood (affective) disorder ([facility]) Chronic 296.90 F39 5. Bereavement reaction 309.0 F43.20 V62.89 Z63.4 6. Anxiety 300.00 F41.9 Engaged client in learning Review of Thinking Errors and Cognitive Challenges, Effective Communication, and Self-Compassion Progress toward goal: Minimal Improvement PLAN: Assigned homework/practice of the following: Effective Communication and Self-Compassion. Continue psychotherapy Current Care Plan Template: Counseling Care Plan Problem: Anxiety Disciplines: Interdisciplinary Goal: GOAL: Increase ability to manage anxiety and restore daily life roles and activities Dates: Start: 12/12/23 Expected End: 12/11/24 Priority: High Disciplines: Interdisciplinary Intervention: Assist the client in identifying at least one situation and patterns of thought which precede/maintain anxiety symptoms so the client may respond more adaptively to those situations and thoughts Dates: Start: 12/11/24 Description: PC will utilize various therapeutic modalities and interventions including CBT and DBT. Responsible: Ramses Allen LPC Goal: Objective: Explore and process antecedents, cognitions affecting mental health symptoms 1 x per session over the course of 1 year. Dates: Start: 11/12/22 Expected End: 11/13/23 Priority: High Description: Progress noted through PETE-7 scores. Screening to be completed every 6 months during the service plan review. CBT Disciplines: Interdisciplinary Goal: Objective: Identify, challenge and replace biased, fearful self-talk with reality-based, positive self-talk 1x per session over the course of 1 year Dates: Start: 12/12/23 Expected End: 12/11/24 Priority: High Description: Client will identify negative self talk and beliefs and replace with positive affirmations 1x during each counseling session. Disciplines: Interdisciplinary Problem: Depression Disciplines: Interdisciplinary Goal: GOAL: Alleviate depression and restore daily life roles and activities Dates: Start: 12/12/23 Expected End: 12/11/24 Priority: High Disciplines: Interdisciplinary Intervention: Clinician will teach client in the use of behavioral interventions through instruction, modeling, rehearsal, to develop skills and practice, review, and provide feedback for refining and consolidating use Dates: Start: 12/11/24 Description: PC will use behavioral activation strategies, DBT and CBT. Responsible: Ramses Allen LPC Goal: Objective: Explore and practice interventions to assist with coping, increasing self awareness 1 x per session over the course of 1 year Dates: Start: 12/12/23 Expected End: 12/11/24 Priority: Medium Description: Progress to be monitored through PHQ-9 screenings administered every 6 months during the care plan review. Disciplines: Interdisciplinary Next appointment: Scheduled next appointment for 05/11/24 at Other: telehealth . documented in this encounter [facility] Work Phone: 03-09-2024 History of Present illness Narrative Nida Francis engaged in a telehealth session via PHONE with this provider practicing within the [facility]. The identity of Nida was verified by their date of , (1980), and last four digits of their social security number, ([id number]). The provider demonstrated that confidentially was preserved at their location. Nida was informed that they were responsible for ensuring confidentially was secured at their location. Nida's location was documented for emergency purposes. Nida was informed of the necessary steps that would occur if an emergency was to occur or technology failed during session. COUNSELING PROGRESS NOTE Nida Francis is a 43 year old female here today for Individual Counseling PC completed an emotional check-in. Client identified with feeling grief and loss over her divorce. PC assisted client to explore cognitions related to her marriage. Client stated,I believed in my heart what she was saying, I believed she would come back. PC helped client to explore client's responses and rationalizations toward her ex 's inappropriate behaviors within client's marriage that occurred over many years. PC positively reinforced client's kindness and attempt to make changes with within herself. PC helped client to recognize manipulative dynamics within the relationship. PC helped client to process loops of destructive thoughts that is currently impacting client's mental health symptoms and thoughts of S/I. PC helped client to redirect negative thinking patterns. PC helped client to reframe thoughts..PC assisted client to explore how negative behaviors experienced during childhood can contribute to behaviors that client may be attracted to within relationships. PC helped client to explore client's strengths, attributes as well as wants within a relationship. PC provided client with resources for online support groups for divorcees. PC provided client with additional interventions to assist with negative thinking and encouraged client to call Mobile Crisis or the Help Line if symptom continue or worsen. SUBJECTIVE: Client appeared sad or depressed, nervous or anxious, and guilty or ashamed. Evaluated Safety and risk: N/A. OBJECTIVE: Assessment of Mood: anxiety, depressed mood, feelings of worthlessness/guilt, and hopelessness Discussed client's use of CBT, Solution Focused Therapy, and Trauma Informed Care. Goal from ISSP addressed during this session: Increase ability to manage anxiety and restore daily life roles and activities ASSESSMENT: Diagnosis: Visit Diagnosis ICD-9-CM ICD-10-CM 1. Bipolar II disorder ([facility]) Chronic 296.89 F31.81 2. Posttraumatic stress disorder 309.81 F43.10 3. Panic disorder 300.01 F41.0 4. Unspecified mood (affective) disorder ([facility]) Chronic 296.90 F39 5. Bereavement reaction 309.0 F43.20 V62.89 Z63.4 6. Anxiety 300.00 F41.9 Engaged client in learning Review of Thinking Errors and Cognitive Challenges and Emotional Regulation Progress toward goal: Deterioration increased S/I, depression, inability to redirect negative thinking patterns PLAN: Assigned homework/practice of the following: support group for divorcees, The Anxiety [facility] Surrender Episode . Continue psychotherapy Current Service Plan Service Plan Mental Health To provide counseling to minimize symptoms of depression and anxiety Client's symptoms will decrease by 10% over the next 6 month indicated by the PHQ-9 and PETE-7 results Current Care Plan Care Plan: Counseling Care Plan Updates made by Ramses Allen LPC since 03/10/2023 12:00 AM Problem: Anxiety Long-Range Goal: Increase ability to manage anxiety and restore daily life roles and activities Start Date: 12/12/2023 Expected End Date: 12/11/2024 This Visit's Progress: On track Recent Progress: On track Priority: High Task: Assist the client in identifying at least three situations and patterns of thought which precede/maintain anxiety symptoms so the client may respond more adaptively to those situations and thoughts Due Date: 12/11/2024 Priority: High Outcome: Positive Responsible User: Ramses Allen LPC Note: PC will utilize various therapeutic modalities and interventions including CBT and DBT. Goal: Identify, challenge and replace biased, fearful self-talk with reality-based, positive self-talk Start Date: 12/12/2023 Expected End Date: 12/11/2024 Recent Progress: On track Priority: High Note: Client will identify negative self talk and beliefs and replace with positive affirmations 1x during each counseling session. Problem: Depression Long-Range Goal: Alleviate depression and restore daily life roles and activities Start Date: 12/12/2023 Expected End Date: 12/11/2024 This Visit's Progress: On track Recent Progress: On track Priority: High Task: Clinician will teach client in the use of behavioral skills training methods such as instruction, modeling, rehearsal, to develop skills and practice, review, and corrective feedback for refining and consolidating use Due Date: 12/11/2024 Priority: High Outcome: Positive Responsible User: Ramses Allen LPC Note: PC will use behavioral activation strategies, DBT and CBT. Goal: Explore and practice at least three evidence-based relaxation activities that reduce depression over the next 6 months Start Date: 12/12/2023 Expected End Date: 12/11/2024 This Visit's Progress: On track Recent Progress: On track Priority: Medium Note: Progress to be monitored through PHQ-9 screenings administered every 6 months during the care plan review. Next appointment: Scheduled next appointment for 03/16/24 at Other: telehealth . documented in this encounter [facility] [employer] Work Phone: 03-02-2024 History of Present illness Narrative Nida Francis engaged in a telehealth session via PHONE with this provider practicing within the [facility]. The identity of Nida was verified by their date of , (1980), and last four digits of their social security number, ([id number]). The provider demonstrated that confidentially was preserved at their location. Nida was informed that they were responsible for ensuring confidentially was secured at their location. Nida's location was documented for emergency purposes. Nida was informed of the necessary steps that would occur if an emergency was to occur or technology failed during session. COUNSELING PROGRESS NOTE Nida Francis is a 43 year old female here today for Individual Counseling PC completed an emotional check-in. Client stated she was, Taking it easy today and had no plans. PC utilized open ended questions to assist client to begin the session. PC inquired of current stressors and events. Client identified that she went to court and is now legally from [place]. PC assisted client to explore her role within the relationship by exploring antecedents, behaviors and consequences leading to current events. PC assisted client to acknowledge and process behaviors and thought processes that continue to impact client's inability to accept factual evidence and consequences of her ex's behaviors. PC assisted client to explore thinking patterns that client continues to engage in to deflect behaviors, distorted thoughts that continue to instill hope in mending the marriage. I don't believe I deserve better or that there is another relationship out there for me. [place] was my person and I believe I only had one chance at having a relationship and marriage. [place] was my person. Client stated she was not wiling to get a divorce, but agreed to it in court Client identified her mother had a role in client allowing the divorce. PC assisted client to explore cognitions, hopes, emotions rationalizations concerning the finalization of her divorce. PC helped client to process loss, grief, I should have know from the get go who she was. PC provided validation and support, empathetic statements. PC helped client to explore grief of her relationship, which client identified is tied to the loss of her grandmother. PC assisted client to explore her ex's behavior during client's loss. She wasn't there for me when Grandma . PC assisted client to process the statement, I have 2 ways to look at this. One she is and I go on with my life believing she is . The other way is to paint her as a villain and not a good person. PC assisted client to explore coping strategies and accepting that the relationship has ended. PC reminded client to focus on the facts, behaviors and outcomes to look at the events realistically while recognizing client's strengths. PC helped client to identify reasons to set strict boundaries on [place] and her behaviors of continuing efforts to reach out to client for money. PC assisted client to explore what a positive healthy relationship could look like versus a dysfunctional, unhealthy relationship. SUBJECTIVE: Client appeared sad or depressed and nervous or anxious. Evaluated Safety and risk: N/A. OBJECTIVE: Assessment of Mood: anxiety, denies suicidal ideation, depressed mood, and feelings of worthlessness/guilt Discussed client's use of CBT and Trauma Informed Care. Goal from ISSP addressed during this session: Increase ability to manage anxiety and restore daily life roles and activities ASSESSMENT: Diagnosis: Visit Diagnosis ICD-9-CM ICD-10-CM 1. Bipolar II disorder ([facility]) Chronic 296.89 F31.81 2. Posttraumatic stress disorder 309.81 F43.10 3. Panic disorder 300.01 F41.0 4. Unspecified mood (affective) disorder ([facility]) Chronic 296.90 F39 5. Bereavement reaction 309.0 F43.20 V62.89 Z63.4 6. Anxiety 300.00 F41.9 Engaged client in learning Behavioral Analysis, Review of Thinking Errors and Cognitive Challenges, and Self-Compassion Progress toward goal: Minimal Improvement PLAN: Assigned homework/practice of the following: Review of Thinking Errors and Cognitive Challenges.Read The [employer] You. Continue psychotherapy Current Service Plan Service Plan Mental Health To provide counseling to minimize symptoms of depression and anxiety Client's symptoms will decrease by 10% over the next 6 month indicated by the PHQ-9 and PETE-7 results Current Care Plan Care Plan: Counseling Care Plan Updates made by Ramses Allen LPC since 03/03/2023 12:00 AM Problem: Anxiety Long-Range Goal: Increase ability to manage anxiety and restore daily life roles and activities Start Date: 12/12/2023 Expected End Date: 12/11/2024 This Visit's Progress: On track Recent Progress: On track Priority: High Task: Assist the client in identifying at least three situations and patterns of thought which precede/maintain anxiety symptoms so the client may respond more adaptively to those situations and thoughts Due Date: 12/11/2024 Priority: High Outcome: Positive Responsible User: Ramses Allen LPC Note: PC will utilize various therapeutic modalities and interventions including CBT and DBT. Goal: Identify, challenge and replace biased, fearful self-talk with reality-based, positive self-talk Start Date: 12/12/2023 Expected End Date: 12/11/2024 Recent Progress: On track Priority: High Note: Client will identify negative self talk and beliefs and replace with positive affirmations 1x during each counseling session. Problem: Depression Long-Range Goal: Alleviate depression and restore daily life roles and activities Start Date: 12/12/2023 Expected End Date: 12/11/2024 This Visit's Progress: On track Recent Progress: On track Priority: High Task: Clinician will teach client in the use of behavioral skills training methods such as instruction, modeling, rehearsal, to develop skills and practice, review, and corrective feedback for refining and consolidating use Due Date: 12/11/2024 Priority: High Outcome: Positive Responsible User: Ramses Allen LPC Note: PC will use behavioral activation strategies, DBT and CBT. Goal: Explore and practice at least three evidence-based relaxation activities that reduce depression over the next 6 months Start Date: 12/12/2023 Expected End Date: 12/11/2024 This Visit's Progress: On track Recent Progress: On track Priority: Medium Note: Progress to be monitored through PHQ-9 screenings administered every 6 months during the care plan review. Next appointment: Scheduled next appointment for 03/09/24 at Other: telehealth . documented in this encounter [facility] Work Phone: 02-24-2024 History of Present illness Narrative Nida Francis engaged in a telehealth session via PHONE with this provider practicing within the [facility]. The identity of Nida was verified by their date of , (1980), and last four digits of their social security number, ([id number]). The provider demonstrated that confidentially was preserved at their location. Nida was informed that they were responsible for ensuring confidentially was secured at their location. Nida's location was documented for emergency purposes. Nida was informed of the necessary steps that would occur if an emergency was to occur or technology failed during session. COUNSELING PROGRESS NOTE Nida Francis is a 43 year old female here today for Individual Counseling PC completed an emotional check-in. Client identified with feeling stable and relived that she has moved her items out of her home into storage. PC positively reinforced client for taking time to process her current status and taking time to find new housing while staying with her son. PC helped client to explore her thoughts and statement, I'm still accepting and still processing the relationship.I know I can't continue the marriage but I still want us to be together. PC helped client to explore successes and possible opportunities opening up for client due to current changes. SUBJECTIVE: Client appeared sad or depressed and nervous or anxious. Evaluated Safety and risk: N/A. OBJECTIVE: Assessment of Mood: anxiety and depressed mood Discussed client's use of CBT. Goal from ISSP addressed during this session: Alleviate depression and restore daily life roles and activities ASSESSMENT: Diagnosis: Visit Diagnosis ICD-9-CM ICD-10-CM 1. Bipolar II disorder ([facility]) Chronic 296.89 F31.81 2. Posttraumatic stress disorder 309.81 F43.10 3. Panic disorder 300.01 F41.0 4. Unspecified mood (affective) disorder ([facility]) Chronic 296.90 F39 5. Bereavement reaction 309.0 F43.20 V62.89 Z63.4 6. Anxiety 300.00 F41.9 Engaged client in learning Review of Thinking Errors and Cognitive Challenges and Emotional Regulation Progress toward goal: Minimal Improvement PLAN: Assigned homework/practice of the following: Emotional Regulation. Continue psychotherapy Current Service Plan Service Plan Mental Health To provide counseling to minimize symptoms of depression and anxiety Client's symptoms will decrease by 10% over the next 6 month indicated by the PHQ-9 and PETE-7 results Current Care Plan Care Plan: Counseling Care Plan Updates made by Ramses Allen LPC since 02/24/2023 12:00 AM Problem: Anxiety Long-Range Goal: Increase ability to manage anxiety and restore daily life roles and activities Start Date: 12/12/2023 Expected End Date: 12/11/2024 This Visit's Progress: On track Recent Progress: On track Priority: High Task: Assist the client in identifying at least three situations and patterns of thought which precede/maintain anxiety symptoms so the client may respond more adaptively to those situations and thoughts Due Date: 12/11/2024 Priority: High Outcome: Positive Responsible User: Ramses Allen LPC Note: PC will utilize various therapeutic modalities and interventions including CBT and DBT. Goal: Identify, challenge and replace biased, fearful self-talk with reality-based, positive self-talk Start Date: 12/12/2023 Expected End Date: 12/11/2024 Recent Progress: On track Priority: High Note: Client will identify negative self talk and beliefs and replace with positive affirmations 1x during each counseling session. Problem: Depression Long-Range Goal: Alleviate depression and restore daily life roles and activities Start Date: 12/12/2023 Expected End Date: 12/11/2024 This Visit's Progress: On track Recent Progress: On track Priority: High Task: Clinician will teach client in the use of behavioral skills training methods such as instruction, modeling, rehearsal, to develop skills and practice, review, and corrective feedback for refining and consolidating use Due Date: 12/11/2024 Priority: High Outcome: Positive Responsible User: Ramses Allen LPC Note: PC will use behavioral activation strategies, DBT and CBT. Goal: Explore and practice at least three evidence-based relaxation activities that reduce depression over the next 6 months Start Date: 12/12/2023 Expected End Date: 12/11/2024 This Visit's Progress: On track Recent Progress: On track Priority: Medium Note: Progress to be monitored through PHQ-9 screenings administered every 6 months during the care plan review. Next appointment: Scheduled next appointment for 11/8/24 at Other: telehealth . documented in this encounter [facility] Work Phone: 02-17-2024 History of Present illness Narrative Nida Francis engaged in a telehealth session via PHONE with this provider practicing within the [facility]. The identity of Nida was verified by their date of , (1980), and last four digits of their social security number, ([id number]). The provider demonstrated that confidentially was preserved at their location. Nida was informed that they were responsible for ensuring confidentially was secured at their location. Nida's location was documented for emergency purposes. Nida was informed of the necessary steps that would occur if an emergency was to occur or technology failed during session. COUNSELING PROGRESS NOTE Nida Francis is a 43 year old female here today for Individual Counseling.PC completed an emotional check-in. PC assisted client to explore antecedents to stress exasperating physical and mental health symptoms leading to being admitted into the hospital. I guess I was throwing up so much that it damaged my kidneys and liver.PC assisted client to explore the antecedent to symptoms; meeting with the field agent for an apartment. Client additionally identified stress from moving into her son's apartment temporarily until being able to save up money for the apartment. PC assisted client to explore current stressors impacting mental health symptoms such as as being admitted into the hospital and not being able to finish packing, moving her items into a storage unit, missing work for a week and losing the income and not having enough funds to pay for the storage unit rental. PC helped client to process and explore thoughts of change. PC modeled ways client can look at changes positively and encouraged client to replace negative htinking patterns with more positive ones. PC assisted client to gain insight into how change can assist with decreasing stress caused by relationship problems and lead to a more healthier life. SUBJECTIVE: Client appeared sad or depressed and nervous or anxious. Evaluated Safety and risk: N/A. OBJECTIVE: Assessment of Mood: anxiety Discussed client's use of CBT. Goal from ISSP addressed during this session: Increase ability to manage anxiety and restore daily life roles and activities ASSESSMENT: Diagnosis: Visit Diagnosis ICD-9-CM ICD-10-CM 1. Bipolar II disorder ([facility]) Chronic 296.89 F31.81 2. Posttraumatic stress disorder 309.81 F43.10 3. Panic disorder 300.01 F41.0 4. Unspecified mood (affective) disorder ([facility]) Chronic 296.90 F39 5. Bereavement reaction 309.0 F43.20 V62.89 Z63.4 6. Anxiety 300.00 F41.9 Engaged client in learning Review of Thinking Errors and Cognitive Challenges and Emotional Regulation Progress toward goal: Moderate Improvement PLAN: Assigned homework/practice of the following: Emotional Regulation, Self-Compassion, and Mindfulness. Continue psychotherapy Current Service Plan Service Plan Mental Health To provide counseling to minimize symptoms of depression and anxiety Client's symptoms will decrease by 10% over the next 6 month indicated by the PHQ-9 and PETE-7 results Current Care Plan Care Plan: Counseling Care Plan Updates made by Ramses Allen LPC since 02/17/2023 12:00 AM Problem: Anxiety Long-Range Goal: Increase ability to manage anxiety and restore daily life roles and activities Start Date: 12/12/2023 Expected End Date: 12/11/2024 This Visit's Progress: On track Recent Progress: On track Priority: High Task: Assist the client in identifying at least three situations and patterns of thought which precede/maintain anxiety symptoms so the client may respond more adaptively to those situations and thoughts Due Date: 12/11/2024 Priority: High Outcome: Positive Responsible User: Ramses Allen LPC Note: PC will utilize various therapeutic modalities and interventions including CBT and DBT. Goal: Identify, challenge and replace biased, fearful self-talk with reality-based, positive self-talk Start Date: 12/12/2023 Expected End Date: 12/11/2024 Recent Progress: On track Priority: High Note: Client will identify negative self talk and beliefs and replace with positive affirmations 1x during each counseling session. Problem: Depression Long-Range Goal: Alleviate depression and restore daily life roles and activities Start Date: 12/12/2023 Expected End Date: 12/11/2024 This Visit's Progress: On track Recent Progress: On track Priority: High Task: Clinician will teach client in the use of behavioral skills training methods such as instruction, modeling, rehearsal, to develop skills and practice, review, and corrective feedback for refining and consolidating use Due Date: 12/11/2024 Priority: High Outcome: Positive Responsible User: Ramses Allen LPC Note: PC will use behavioral activation strategies, DBT and CBT. Goal: Explore and practice at least three evidence-based relaxation activities that reduce depression over the next 6 months Start Date: 12/12/2023 Expected End Date: 12/11/2024 This Visit's Progress: On track Recent Progress: On track Priority: Medium Note: Progress to be monitored through PHQ-9 screenings administered every 6 months during the care plan review. Next appointment: Scheduled next appointment for 03/02/24 at Other: telehealth . documented in this encounter [facility] Work Phone: 02-16-2024 Note HNO ID: [id number] Author: IRENE DURÁN LSW Service: Care Management Author Type: Sql Data Analyst Type: Care Mgt Initial Assessment Filed: 02/16/2024 19:03 Note Text: CARE MANAGEMENT: ASSESSMENT AND DISCHARGE PLAN SERVICE DATE: February 16, 2024 SERVICE TIME: 6:52 PM PCP: Felecia Ely MD Primary Contact: Extended Emergency Contact Information Primary Emergency Contact: AGUILA CRESPO Mobile Relation: Mother Admission Status: Observation Insurance Provider: [facility] DUAL COMPLETE HMO POS SNP Discharge Planning requested by: Per Department Practice Potential Transition Plans Home Advance Directives Current Advance Directive: Health Care Power of Mascara Molder In Chart: Yes Up To Date and Valid: Yes Current Living Arrangements and Support Lives with: Alone Type of Residence: Private Residence (House) Does the patient have to climb stairs at home?: Yes;stairs outside the home;stairs within the home Support: Children, Family members How do you manage to accomplish the following: Independent: Ambulation;Bathe/Shower;Dress;Sahra ls/Meal Prep;Going to the bathroom;Medication Management;Transportation to appointments/community Current Services/Equipment Current Post-Acute Service(s): None Discharge Planning Patient Goal(s): Be able to go home, General wellness [place] of Choice Explained: [place] of [place] Given: No Reason Not Given: No placements necessary Are you interested in bedside delivery of your medications? No Discharge Planning Participant(s): Patient Patient/Family Comments: none Caregiver Assessment: Caregiver is ready, willing and able to meet the patient's needs as recommended by the inter-professional team: No Caregiver needed Transport at Discharge: Transportation Arrangements: Car Destination: home Needs Prior to Discharge: Needs Prior to Discharge: To Be Determined Post-Acute Discharge Plan: SW met with patient at bedside to complete assessment. SW introduced self and role. Patient is AANDOX3 and agreeable to SW visit. Patient is 43 year old female who presents with abdominal pain. H/O HTN, PTSD, bipolar. Patient reports living alone currently with steps to enter the home. Patient reports moving in with her son, Kwame (20y) next week. Patient tearful and reports adjusting to moving. SW offered housing resources, and patient declined. Per chart review, being evicted. Patient reports being independent with ADLs and iADLs, drives, works, and no DME. Patient denies issues with drugs, alcohol, and MH at this time. Patient admits to marijuana use, denies a problem. Patient reports being active with [facility] for counseling weekly. Patient denies social and safety concerns at this time. Patient reports she was scammed from someone she did not know online, and struggling with finances. SW provided support. Patient denies SI and HI at this time Anticipate no dc skilled needs at this time. Patient reports her car is in the parking lot, and plans to drive herself home at dc. SW/TCC available to assist with dc if needed. SIGNATURE: MARY KAY Judge PATIENT NAME: Nida Francis DATE: February 16, 2024 TIME: 6:51 PM CONTACT #: [facility] 02-16-2024 Note HNO ID: [id number] Author: LAMINE SONI DO Service: General Internal Medicine Author Type: Physician Type: Plan of Care Filed: 02/16/2024 16:16 Note Text: This patient presents with abdominal pain, nausea and vomiting. Symptoms began about three days ago. Per the patient she had a temperature of 100.3 yesterday. Unable to keep any oral intake down. No blood in her stools or black tarry stools. No coffee ground appearing emesis. These symptoms have been a chronic problem for her. Her serum creatinine is elevated at 1.47. Potassium was replaced in the ED. An ultra sound of the right upper quadrant was negative. This patient has a history of cannabinoid hyperemesis. WBC count is slightly elevated at 13.4. Appears dehydrated. Very sleepy. Heart is in a regular rate and rhythm. Lungs are clear. Generalized abdominal tenderness. No need for telemetry. IV fluids. Home medications. Zofran. Full liquid diet. CBC and a BMP tomorrow morning. Her Lipase is slightly elevated. Possible viral gastroenteritis. Possible cannabinoid hyperemesis. Urine tox screen not done. [facility] 02-16-2024 Note HNO ID: [id number] Author: FELECIA ELY MD Service: ? Author Type: Physician Type: Progress Notes Filed: 02/16/2024 21:00 Note Text: [facility] - General Progress Note NIDA FRANCIS : 1980 AGE: 43 SEX: F CSN: [id number] HOSP SVC: Obs Unit LOCATION: [facility] ATTENDING PHYSICIAN: Felecia Ely M.D. DATE OF SERVICE: 02/16/2024 TIME OF SERVICE: 04:00 PM SUBJECTIVE: This is a patient who came in the hospital with abdominal pain, nausea, and vomiting. Stated she is unable to keep anything down. ASSESSMENT AND PLAN: 1. Epigastric abdominal pain. Admitted to the hospital. CMP, lipase, amylase. Ultrasound of the right upper quadrant. Pain control. 2. Nausea and vomiting. Plan symptomatic treatment with Zofran, IV hydration. Monitor electrolytes. Consult with GI for evaluation with endoscopy. Consider gastric emptying study. 3. Acute renal failure, likely related to dehydration. IV fluids. Follow up CMP. Monitor urine output. If compromised, ultrasound of renal. 4. Hypokalemia, replaced. 5. History of asthma. Bronchodilator as needed. 6. Prior history of hyperlipidemia, cerebrovascular accident. Seemed to be at baseline. Discussed with the ED. We will follow up. Felecia Ely M.D. Internal Medicine ROY:[id number] /[id number] [facility] 02-10-2024 History of Present illness Narrative Nida Francis engaged in a telehealth session via PHONE with this provider practicing within the [facility]. The identity of Nida was verified by their date of , (1980), and last four digits of their social security number, ([id number]). The provider demonstrated that confidentially was preserved at their location. Nida was informed that they were responsible for ensuring confidentially was secured at their location. Nida's location was documented for emergency purposes. Nida was informed of the necessary steps that would occur if an emergency was to occur or technology failed during session. COUNSELING PROGRESS NOTE Nida Francis is a 43 year old female here today for Individual Counseling PC completed an emotional check-in. Client stated, I'm either filled with anxiety or I jut don't care. PC assisted client to explore her fears of moving.PC assisted client to process cognitions, frustrations with losing money through a scam. PC educated client on the red flag warnings of being scammed. PC helped client to explore ways to do research before committing to an apartment. PC encouraged client to seek support form family, friends and PC before making impulsive decisions. PC positively reinforced client's strengths and ability to make focus on goals. PC provided client with therapeutic interventions to increase self worth and for symptom management. SUBJECTIVE: Client appeared neutral or euthymic. Evaluated Safety and risk: N/A. OBJECTIVE: Assessment of Mood: anxiety Discussed client's use of CBT. Goal from ISSP addressed during this session: Increase ability to manage anxiety and restore daily life roles and activities ASSESSMENT: Diagnosis: Visit Diagnosis ICD-9-CM ICD-10-CM 1. Bipolar II disorder ([facility]) Chronic 296.89 F31.81 2. Posttraumatic stress disorder 309.81 F43.10 3. Panic disorder 300.01 F41.0 4. Unspecified mood (affective) disorder ([facility]) Chronic 296.90 F39 5. Bereavement reaction 309.0 F43.20 V62.89 Z63.4 6. Anxiety 300.00 F41.9 Engaged client in learning Review of Thinking Errors and Cognitive Challenges, Emotional Regulation, and Effective Communication Progress toward goal: Moderate Improvement PLAN: Assigned homework/practice of the following: Emotional Regulation and Self-Compassion. Continue psychotherapy Current Service Plan Service Plan Mental Health To provide counseling to minimize symptoms of depression and anxiety Client's symptoms will decrease by 10% over the next 6 month indicated by the PHQ-9 and PETE-7 results Current Care Plan Care Plan: Counseling Care Plan Updates made by Ramses Allen LPC since 02/10/2023 12:00 AM Problem: Anxiety Long-Range Goal: Increase ability to manage anxiety and restore daily life roles and activities Start Date: 12/12/2023 Expected End Date: 12/11/2024 This Visit's Progress: On track Recent Progress: On track Priority: High Task: Assist the client in identifying at least three situations and patterns of thought which precede/maintain anxiety symptoms so the client may respond more adaptively to those situations and thoughts Due Date: 12/11/2024 Priority: High Outcome: Positive Responsible User: Ramses Allen LPC Note: PC will utilize various therapeutic modalities and interventions including CBT and DBT. Goal: Identify, challenge and replace biased, fearful self-talk with reality-based, positive self-talk Start Date: 12/12/2023 Expected End Date: 12/11/2024 Recent Progress: On track Priority: High Note: Client will identify negative self talk and beliefs and replace with positive affirmations 1x during each counseling session. Problem: Depression Long-Range Goal: Alleviate depression and restore daily life roles and activities Start Date: 12/12/2023 Expected End Date: 12/11/2024 This Visit's Progress: On track Recent Progress: On track Priority: High Task: Clinician will teach client in the use of behavioral skills training methods such as instruction, modeling, rehearsal, to develop skills and practice, review, and corrective feedback for refining and consolidating use Due Date: 12/11/2024 Priority: High Outcome: Positive Responsible User: Ramses Allen LPC Note: PC will use behavioral activation strategies, DBT and CBT. Goal: Explore and practice at least three evidence-based relaxation activities that reduce depression over the next 6 months Start Date: 12/12/2023 Expected End Date: 12/11/2024 This Visit's Progress: On track Recent Progress: On track Priority: Medium Note: Progress to be monitored through PHQ-9 screenings administered every 6 months during the care plan review. Next appointment: Scheduled next appointment for 02/17/24 at Other: 02/17/24 . documented in this encounter [facility] Work Phone: 02-03-2024 History of Present illness Narrative Nida Francis engaged in a telehealth session via PHONE with this provider practicing within the [facility]. The identity of Nida was verified by their date of , (1980), and last four digits of their social security number, ([id number]). The provider demonstrated that confidentially was preserved at their location. Nida was informed that they were responsible for ensuring confidentially was secured at their location. Nida's location was documented for emergency purposes. Nida was informed of the necessary steps that would occur if an emergency was to occur or technology failed during session. COUNSELING PROGRESS NOTE Nida Francis is a 43 year old female here today for Individual Counseling . PC completed an emotional check-in. Client stated she wanted to kill herself and needs to Go to the hospital, but I can't. I have to pack, I'm being evicted. I have no money and no place to go! PC assisted client to explore current events.Client states she found housing but it was a scam and she lost her savings and ability to rent another apartment. PC assisted client to reframe negative cognitions directed at herself. PC helped client to reframe negative thoughts concerning her filing for a divorce. PC positively reinforced client engaging in new social activities. PC assisted client to problem solve solutions; assisted client in focusing on a future obtainable goal. PC reviewed client's safety plan, made a plan for the weekend that client agreed upon. PC outreached Alejandra per client's request for support with S/I. Client's mood was stable, client had future goals and plans set. SUBJECTIVE: Client appeared sad or depressed, nervous or anxious, worried or scared, and guilty or ashamed. Evaluated Safety and risk: increased S/I, client states needing to go to the hospital for support. . OBJECTIVE: Assessment of Mood: anxiety, depressed mood, feelings of worthlessness/guilt, hopelessness, and suicidal thoughts with specific plan Discussed client's use of CBT and Solution Focused Therapy. Goal from ISSP addressed during this session: Increase ability to manage anxiety and restore daily life roles and activities ASSESSMENT: Diagnosis: Visit Diagnosis ICD-9-CM ICD-10-CM 1. Bipolar II disorder ([facility]) Chronic 296.89 F31.81 2. Posttraumatic stress disorder 309.81 F43.10 3. Panic disorder 300.01 F41.0 4. Unspecified mood (affective) disorder ([facility]) Chronic 296.90 F39 5. Bereavement reaction 309.0 F43.20 V62.89 Z63.4 6. Anxiety 300.00 F41.9 Engaged client in learning Review of Thinking Errors and Cognitive Challenges, Emotional Regulation, and Self-Compassion Progress toward goal: Deterioration client has S/I due to current stressors. PLAN: Assigned homework/practice of the following: follow safety plan discussed . Continue psychotherapy Current Service Plan Service Plan Mental Health To provide counseling to minimize symptoms of depression and anxiety Client's symptoms will decrease by 10% over the next 6 month indicated by the PHQ-9 and PETE-7 results Current Care Plan Care Plan: Counseling Care Plan Updates made by Ramses Allen LPC since 02/03/2023 12:00 AM Problem: Anxiety Long-Range Goal: Increase ability to manage anxiety and restore daily life roles and activities Start Date: 12/12/2023 Expected End Date: 12/11/2024 This Visit's Progress: On track Recent Progress: On track Priority: High Task: Assist the client in identifying at least three situations and patterns of thought which precede/maintain anxiety symptoms so the client may respond more adaptively to those situations and thoughts Due Date: 12/11/2024 Priority: High Outcome: Positive Responsible User: Ramses Allen LPC Note: PC will utilize various therapeutic modalities and interventions including CBT and DBT. Goal: Identify, challenge and replace biased, fearful self-talk with reality-based, positive self-talk Start Date: 12/12/2023 Expected End Date: 12/11/2024 Recent Progress: On track Priority: High Note: Client will identify negative self talk and beliefs and replace with positive affirmations 1x during each counseling session. Problem: Depression Long-Range Goal: Alleviate depression and restore daily life roles and activities Start Date: 12/12/2023 Expected End Date: 12/11/2024 This Visit's Progress: On track Recent Progress: On track Priority: High Task: Clinician will teach client in the use of behavioral skills training methods such as instruction, modeling, rehearsal, to develop skills and practice, review, and corrective feedback for refining and consolidating use Due Date: 12/11/2024 Priority: High Outcome: Positive Responsible User: Ramses Allen LPC Note: PC will use behavioral activation strategies, DBT and CBT. Goal: Explore and practice at least three evidence-based relaxation activities that reduce depression over the next 6 months Start Date: 12/12/2023 Expected End Date: 12/11/2024 This Visit's Progress: On track Recent Progress: On track Priority: Medium Note: Progress to be monitored through PHQ-9 screenings administered every 6 months during the care plan review. Next appointment: Scheduled next appointment for 02/10/24 at Other: telehealth . documented in this encounter [facility] Work Phone: 01-20-2024 History of Present illness Narrative Nida Francis engaged in a telehealth session via PHONE with this provider practicing within the [facility]. The identity of Nida was verified by their date of , (1980), and last four digits of their social security number, ([id number]). The provider demonstrated that confidentially was preserved at their location. Nida was informed that they were responsible for ensuring confidentially was secured at their location. Nida's location was documented for emergency purposes. Nida was informed of the necessary steps that would occur if an emergency was to occur or technology failed during session. COUNSELING PROGRESS NOTE Nida Francis is a 43 year old female here today for Individual Counseling. PC completed an emotional check in. Client identified with feeling Stressed and overwhelmed, and numb. PC assisted client to identify antecedents impacting mental health symptoms. PC outreached [place]ero as client has lost her Medicaid and is being charged for her Medicare. PC outreached case management to possibly assist client with moving costs housing or rental assistance. PC provided client with information of several apartments and websites that have listed apartments in client's financial range. PC helped client to problem solve. PC assisted client in and weighing the pros and cons of accepting a smaller apartment or facing possible consequences. PC helped client to explore cognitions concerning her ex and beliefs surrounding commitment and marriage; separation and divorce. PC assisted client to explore the statement, I have a piece of paper that says we're and I take that commitment very seriously. PC provided unconditional positive regard, support, validation and empathetic statements while helping client to process the statement in a realistic point of view based on her current situation and facts. PC positively reinforced client's use of coping strategies, and encouraged client to engage in coping strategies independently while continuing to utilize coping strategies with the support of family members. PC provided client with information of a walking group for social interaction and coping. SUBJECTIVE: Client appeared sad or depressed. Evaluated Safety and risk: N/A. OBJECTIVE: Assessment of Mood: anxiety and depressed mood Discussed client's use of CBT and Solution Focused Therapy. Goal from ISSP addressed during this session: Increase ability to manage anxiety and restore daily life roles and activities ASSESSMENT: Diagnosis: Visit Diagnosis ICD-9-CM ICD-10-CM 1. Bipolar II disorder ([facility]) Chronic 296.89 F31.81 2. Posttraumatic stress disorder 309.81 F43.10 3. Panic disorder 300.01 F41.0 4. Unspecified mood (affective) disorder ([facility]) Chronic 296.90 F39 5. Bereavement reaction 309.0 F43.20 V62.89 Z63.4 6. Anxiety 300.00 F41.9 Engaged client in learning Review of Thinking Errors and Cognitive Challenges, Emotional Regulation, and problem solving Progress toward goal: Moderate Improvement PLAN: Assigned homework/practice of the following: continue to seek out housing , continue mediation and walking with her sister. . Continue psychotherapy Current Service Plan Service Plan Mental Health To provide counseling to minimize symptoms of depression and anxiety Client's symptoms will decrease by 10% over the next 6 month indicated by the PHQ-9 and PETE-7 results Current Care Plan Care Plan: Counseling Care Plan Updates made by Ramses Allen LPC since 01/20/2023 12:00 AM Problem: Anxiety Long-Range Goal: Increase ability to manage anxiety and restore daily life roles and activities Start Date: 12/12/2023 Expected End Date: 12/11/2024 This Visit's Progress: On track Recent Progress: On track Priority: High Task: Assist the client in identifying at least three situations and patterns of thought which precede/maintain anxiety symptoms so the client may respond more adaptively to those situations and thoughts Due Date: 12/11/2024 Priority: High Outcome: Positive Responsible User: Ramses Allen LPC Note: PC will utilize various therapeutic modalities and interventions including CBT and DBT. Goal: Identify, challenge and replace biased, fearful self-talk with reality-based, positive self-talk Start Date: 12/12/2023 Expected End Date: 12/11/2024 Recent Progress: On track Priority: High Note: Client will identify negative self talk and beliefs and replace with positive affirmations 1x during each counseling session. Problem: Depression Long-Range Goal: Alleviate depression and restore daily life roles and activities Start Date: 12/12/2023 Expected End Date: 12/11/2024 This Visit's Progress: On track Recent Progress: On track Priority: High Task: Clinician will teach client in the use of behavioral skills training methods such as instruction, modeling, rehearsal, to develop skills and practice, review, and corrective feedback for refining and consolidating use Due Date: 12/11/2024 Priority: High Outcome: Positive Responsible User: Ramses Allen LPC Note: PC will use behavioral activation strategies, DBT and CBT. Goal: Explore and practice at least three evidence-based relaxation activities that reduce depression over the next 6 months Start Date: 12/12/2023 Expected End Date: 12/11/2024 This Visit's Progress: On track Recent Progress: On track Priority: Medium Note: Progress to be monitored through PHQ-9 screenings administered every 6 months during the care plan review. Next appointment: Scheduled next appointment for 02/03/24 at Other: telehealth . documented in this encounter [facility] Work Phone: 01-06-2024 History of Present illness Narrative Nida Francis engaged in a telehealth session via PHONE with this provider practicing [facility] the [facility] [facility] The identity of Nida was verified by their date of , (1980), and last four digits of their social security number, ([id number]). The provider demonstrated that confidentially was preserved at their location. Nida was informed that they were responsible for ensuring confidentially was secured at their location. Nida's location was documented for emergency purposes. Nida was informed of the necessary steps that would occur if an emergency was to occur or technology failed during session. COUNSELING PROGRESS NOTE Nida Francis is a 43 year old female here today for Individual Counseling. PC completed an emotional check-in. Client states she is facing an eviction and is looking at apartments rather than a house. PC assisted client to explore events utilizing the A,B,C model. PC assisted client to explore repercussions as a motivation to find housing immediately. PC positively reinforced client's ability to manage anxiety and cognitions that previously impeded client's ability to look for housing. PC assisted client to explore cognitions surrounding continued and increased contact with her ex for support. PC helped client to look at other opportunities to formulate new relationships that would provided client with forming a strong, healthy relationship. PC provided client with community resources for positive social interactions. SUBJECTIVE: Client appeared sad or depressed and nervous or anxious. Evaluated Safety and risk: N/A. OBJECTIVE: Assessment of Mood: anxiety and depressed mood Discussed client's use of CBT and Solution Focused Therapy. Goal from ISSP addressed during this session: Alleviate depression and restore daily life roles and activities ASSESSMENT: Diagnosis: Visit Diagnosis ICD-9-CM ICD-10-CM 1. Bipolar II disorder ([facility]) Chronic 296.89 F31.81 2. Posttraumatic stress disorder 309.81 F43.10 3. Panic disorder 300.01 F41.0 4. Unspecified mood (affective) disorder ([facility]) Chronic 296.90 F39 5. Bereavement reaction 309.0 F43.20 V62.89 Z63.4 6. Anxiety 300.00 F41.9 Engaged client in learning Review of Thinking Errors and Cognitive Challenges Progress toward goal: Moderate Improvement PLAN: Assigned homework/practice of the following: N/A at this time, continue with current coping strategies . Continue psychotherapy Current Service Plan Service Plan Mental Health To provide counseling to minimize symptoms of depression and anxiety Client's symptoms will decrease by 10% over the next 6 month indicated by the PHQ-9 and PETE-7 results Current Care Plan Care Plan: Counseling Care Plan Updates made by Ramses Allen LPC since 01/06/2023 12:00 AM Problem: Anxiety Long-Range Goal: Increase ability to manage anxiety and restore daily life roles and activities Start Date: 12/12/2023 Expected End Date: 12/11/2024 This Visit's Progress: On track Recent Progress: On track Priority: High Task: Assist the client in identifying at least three situations and patterns of thought which precede/maintain anxiety symptoms so the client may respond more adaptively to those situations and thoughts Due Date: 12/11/2024 Priority: High Outcome: Positive Responsible User: Ramses Allen LPC Note: PC will utilize various therapeutic modalities and interventions including CBT and DBT. Goal: Identify, challenge and replace biased, fearful self-talk with reality-based, positive self-talk Start Date: 12/12/2023 Expected End Date: 12/11/2024 Recent Progress: On track Priority: High Note: Client will identify negative self talk and beliefs and replace with positive affirmations 1x during each counseling session. Problem: Depression Long-Range Goal: Alleviate depression and restore daily life roles and activities Start Date: 12/12/2023 Expected End Date: 12/11/2024 This Visit's Progress: On track Recent Progress: On track Priority: High Task: Clinician will teach client in the use of behavioral skills training methods such as instruction, modeling, rehearsal, to develop skills and practice, review, and corrective feedback for refining and consolidating use Due Date: 12/11/2024 Priority: High Outcome: Positive Responsible User: Ramses Allen LPC Note: PC will use behavioral activation strategies, DBT and CBT. Goal: Explore and practice at least three evidence-based relaxation activities that reduce depression over the next 6 months Start Date: 12/12/2023 Expected End Date: 12/11/2024 This Visit's Progress: On track Recent Progress: On track Priority: Medium Note: Progress to be monitored through PHQ-9 screenings administered every 6 months during the care plan review. Next appointment: Scheduled next appointment for 01/20/24 at Other: telehealth . documented in this encounter [facility] Work Phone: 12-23-2023 History of Present illness Narrative Nida Francis engaged in a telehealth session via PHONE with this provider practicing within the [facility]. The identity of Nida was verified by their date of , (1980), and last four digits of their social security number, ([id number]). The provider demonstrated that confidentially was preserved at their location. Nida was informed that they were responsible for ensuring confidentially was secured at their location. Nida's location was documented for emergency purposes. Nida was informed of the necessary steps that would occur if an emergency was to occur or technology failed during session. COUNSELING PROGRESS NOTE Nida Francis is a 43 year old female here today for Individual Counseling. PC completed an emotional check-in. Client identified with feeling frustrated having learned earlier today that the apartment she was to move into was give to another tenet. PC helped client to explore events that led to losing the apartment. PC helped client to look at circumstances in a more positive way. PC helped client to explore thought patterns that can positively or negatively impact client's behaviors. PC positively reinforced client's statement, I have to keep looking at things positively or else I get into a dark place. PC assisted client to problem solve ways to be more aggressive in her apartment search using effective communication skills and asserting herself more effectively. SUBJECTIVE: Client appeared neutral or euthymic. Evaluated Safety and risk: N/A. OBJECTIVE: Assessment of Mood: anxiety and depressed mood Discussed client's use of CBT and Solution Focused Therapy. Goal from ISSP addressed during this session: Increase ability to manage anxiety and restore daily life roles and activities ASSESSMENT: Diagnosis: Visit Diagnosis ICD-9-CM ICD-10-CM 1. Bipolar II disorder ([facility]) Chronic 296.89 F31.81 2. Posttraumatic stress disorder 309.81 F43.10 3. Panic disorder 300.01 F41.0 4. Unspecified mood (affective) disorder ([facility]) Chronic 296.90 F39 5. Bereavement reaction 309.0 F43.20 V62.89 Z63.4 6. Anxiety 300.00 F41.9 Engaged client in learning Emotional Regulation, Effective Communication, and problem solving Progress toward goal: Moderate Improvement PLAN: Assigned homework/practice of the following: Effective Communication and effective actions . Continue psychotherapy Current Service Plan Service Plan Mental Health To provide counseling to minimize symptoms of depression and anxiety Client's symptoms will decrease by 10% over the next 6 month indicated by the PHQ-9 and PETE-7 results Current Care Plan Care Plan: Counseling Care Plan Updates made by Ramses Allen LPC since 12/23/2022 12:00 AM Problem: Anxiety Long-Range Goal: Increase ability to manage anxiety and restore daily life roles and activities Start Date: 12/12/2023 Expected End Date: 12/11/2024 This Visit's Progress: On track Recent Progress: On track Priority: High Task: Assist the client in identifying at least three situations and patterns of thought which precede/maintain anxiety symptoms so the client may respond more adaptively to those situations and thoughts Due Date: 12/11/2024 Priority: High Outcome: Positive Responsible User: Ramses Allen LPC Note: PC will utilize various therapeutic modalities and interventions including CBT and DBT. Goal: Identify, challenge and replace biased, fearful self-talk with reality-based, positive self-talk Start Date: 12/12/2023 Expected End Date: 12/11/2024 Recent Progress: On track Priority: High Note: Client will identify negative self talk and beliefs and replace with positive affirmations 1x during each counseling session. Problem: Depression Long-Range Goal: Alleviate depression and restore daily life roles and activities Start Date: 12/12/2023 Expected End Date: 12/11/2024 This Visit's Progress: On track Recent Progress: On track Priority: High Task: Clinician will teach client in the use of behavioral skills training methods such as instruction, modeling, rehearsal, to develop skills and practice, review, and corrective feedback for refining and consolidating use Due Date: 12/11/2024 Priority: High Outcome: Positive Responsible User: Ramses Allen LPC Note: PC will use behavioral activation strategies, DBT and CBT. Goal: Explore and practice at least three evidence-based relaxation activities that reduce depression over the next 6 months Start Date: 12/12/2023 Expected End Date: 12/11/2024 This Visit's Progress: On track Recent Progress: On track Priority: Medium Note: Progress to be monitored through PHQ-9 screenings administered every 6 months during the care plan review. Next appointment: Scheduled next appointment for 01/06/24 at Other: telehealth . documented in this encounter [facility] Work Phone: 12-12-2023 History of Present illness Narrative Nida Francis engaged in a telehealth session via PHONE with this provider practicing within the [facility]. The identity of Nida was verified by their date of , (1980), and last four digits of their social security number, ([id number]). The provider demonstrated that confidentially was preserved at their location. Nida was informed that they were responsible for ensuring confidentially was secured at their location. Nida's location was documented for emergency purposes. iNda was informed of the necessary steps that would occur if an emergency was to occur or technology failed during session. COUNSELING PROGRESS NOTE Nida Francis is a 43 year old female here today for Individual Counseling. PC completed an emotional check-in. Client identified with feeling stable, but having stress over finding new housing. PC updated the Care Plan with client's input. The following were addressed in today's visit: Depression screening:DEPRESSION FU PROVIDED ([facility]): Counseling / education in visit Click to Document PHQ-9 PC administered the PETE-7 and PHQ-9 and SDH screenings.PHQ-9:12moderate depression ; PETE-7:5 mild anxiety.In addition to updating the Care Plan, PC assisted client to explore thoughts of change and to explore how current changes are affecting client's cognitions and emotions. PC helped client to explore changes since her son and his partner moved away. PC assisted client to explore thoughts of living alone and plans to move. PC assisted client to explore the pros and cons of moving and provided client with community resources. PC helped client to explore fears and related cognitive distortions with moving and changes in routine. PC provided validation, support, empathetic responses, problem solving, unconditional positive regard throughout the session. SUBJECTIVE: Client appeared neutral or euthymic, sad or depressed, and nervous or anxious. Evaluated Safety and risk: N/A. OBJECTIVE: Assessment of Mood: anxiety and depressed mood Discussed client's use of CBT and Solution Focused Therapy. Goal from ISSP addressed during this session: Increase ability to manage anxiety and restore daily life roles and activities ASSESSMENT: Diagnosis: Visit Diagnosis ICD-9-CM ICD-10-CM 1. Bipolar II disorder ([facility]) Chronic 296.89 F31.81 2. Posttraumatic stress disorder 309.81 F43.10 3. Panic disorder 300.01 F41.0 4. Unspecified mood (affective) disorder ([facility]) Chronic 296.90 F39 5. Bereavement reaction 309.0 F43.20 V62.89 Z63.4 6. Anxiety 300.00 F41.9 Engaged client in learning Effective Communication and maintaining limits on those that overstep impacting beliefs, values, self image Progress toward goal: Minimal Improvement PLAN: Assigned homework/practice of the following: Self-Compassion and Mindfulness. Continue psychotherapy Current Service Plan Service Plan Mental Health To provide counseling to minimize symptoms of depression and anxiety Client's symptoms will decrease by 10% over the next 6 month indicated by the PHQ-9 and PETE-7 results Current Care Plan Care Plan: Counseling Care Plan Updates made by Ramses Allen LPC since 12/12/2022 12:00 AM Problem: Anxiety Long-Range Goal: Increase ability to manage anxiety and restore daily life roles and activities Start Date: 12/12/2023 Expected End Date: 12/11/2024 This Visit's Progress: On track Recent Progress: On track Priority: High Task: Assist the client in identifying at least three situations and patterns of thought which precede/maintain anxiety symptoms so the client may respond more adaptively to those situations and thoughts Due Date: 12/11/2024 Priority: High Outcome: Positive Responsible User: Ramses Allen LPC Note: PC will utilize various therapeutic modalities and interventions including CBT and DBT. Goal: Identify, challenge and replace biased, fearful self-talk with reality-based, positive self-talk Start Date: 12/12/2023 Expected End Date: 12/11/2024 Recent Progress: On track Priority: High Note: Client will identify negative self talk and beliefs and replace with positive affirmations 1x during each counseling session. Problem: Depression Long-Range Goal: Alleviate depression and restore daily life roles and activities Start Date: 12/12/2023 Expected End Date: 12/11/2024 This Visit's Progress: On track Recent Progress: On track Priority: High Task: Clinician will teach client in the use of behavioral skills training methods such as instruction, modeling, rehearsal, to develop skills and practice, review, and corrective feedback for refining and consolidating use Due Date: 12/11/2024 Priority: High Outcome: Positive Responsible User: Ramses Allen LPC Note: PC will use behavioral activation strategies, DBT and CBT. Goal: Explore and practice at least three evidence-based relaxation activities that reduce depression over the next 6 months Start Date: 12/12/2023 Expected End Date: 12/11/2024 This Visit's Progress: On track Recent Progress: On track Priority: Medium Note: Progress to be monitored through PHQ-9 screenings administered every 6 months during the care plan review. Next appointment: Scheduled next appointment for 12/23/23 at Other: telehealth . Care Plan Date Created:12/12/2023 Strengths: Strengths as outlined by patient: I can have empathy for anyone, sometimes it's a problem but it's a strength. 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 Strengths as described by others: I'm kind and insightful. Coping Skills: Mediation, reaching out to family, [employer]. Stress Management: I still take a lot of baths, gotten back into walking, [employer] game. Wellness: I'm doing better, I haven't thrown up in a month. Social Support: Family and friends. Exercise: Walking Hobbies and Interests: [employer] Assessed Needs: Mental Health assessed need: Active Level of Service: Outpatient Care Plan: Counseling Care Plan Updates made by Ramses Allen LPC since 12/12/2022 12:00 AM Problem: Anxiety Long-Range Goal: Increase ability to manage anxiety and restore daily life roles and activities Start Date: 12/12/2023 Expected End Date: 12/11/2024 This Visit's Progress: On track Recent Progress: On track Priority: High Task: Assist the client in identifying at least three situations and patterns of thought which precede/maintain anxiety symptoms so the client may respond more adaptively to those situations and thoughts Due Date: 12/11/2024 Priority: High Outcome: Positive Responsible User: Ramses Allen LPC Note: PC will utilize various therapeutic modalities and interventions including CBT and DBT. Goal: Identify, challenge and replace biased, fearful self-talk with reality-based, positive self-talk Start Date: 12/12/2023 Expected End Date: 12/11/2024 Recent Progress: On track Priority: High Note: Client will identify negative self talk and beliefs and replace with positive affirmations 1x during each counseling session. Problem: Depression Long-Range Goal: Alleviate depression and restore daily life roles and activities Start Date: 12/12/2023 Expected End Date: 12/11/2024 This Visit's Progress: On track Recent Progress: On track Priority: High Task: Clinician will teach client in the use of behavioral skills training methods such as instruction, modeling, rehearsal, to develop skills and practice, review, and corrective feedback for refining and consolidating use Due Date: 12/11/2024 Priority: High Outcome: Positive Responsible User: Ramses Allen LPC Note: PC will use behavioral activation strategies, DBT and CBT. Goal: Explore and practice at least three evidence-based relaxation activities that reduce depression over the next 6 months Start Date: 12/12/2023 Expected End Date: 12/11/2024 This Visit's Progress: On track Recent Progress: On track Priority: Medium Note: Progress to be monitored through PHQ-9 screenings administered every 6 months during the care plan review. Plan Comments: Client has had many changes over the past year. Client engaged in couple's counseling with her partner and it was decided to end the relationship. Client identified belief of the end in the relationship when she learned her partner was dating. Client was hospitalized for S/I after the breakup and the loss of her cat and grandmother. Client is trying to move to another location. Client's child moved out of her home with his partner. Client states insight that her relationship with her ex is unhealthy, but client continues to keep contact and be concerned over her ex's homelessness and inability to maintain employment. Service Conclusion Criteria/Transition/Discharge: I will always benefit from counseling. Participants for Today s Plan: Patient acknowledges participating, agrees with plan. 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 Jeannette Diaz MA [facility] 12-07-2023 Miscellaneous Notes Patient phones requesting refills as follows: Requested Prescriptions Pending Prescriptions Disp Refills pantoprazole DR (PROTONIX) 40 mg tablet [Pharmacy Med Name: PANTOPRAZOLE DR 40MG TAB 40 Tablet] 60 tablet 2 Sig: take one (1) tablet by mouth twice daily rOPINIRole (REQUIP) 0.25 mg tablet [Pharmacy Med Name: ROPINIROLE 0.25 MG TAB 0.25 Tablet] 30 tablet 2 Sig: take 1 tablet by mouth daily at bedtime Please review and advise. Jeannette Diaz MA documented in this encounter [facility] 12-02-2023 Note [facility] Patient Name: Nida Zarate Procedure Date: 12/02/2023 10:00 AM Date of : 1980 Age: 42 Gender: Female Race: Unknown Attending MD: Kirill Causey MD, [id number] Procedure: Colonoscopy Referring MD: Felecia Ely MD Providers: Kirill Causey MD Indications: Abdominal pain in the right upper quadrant, Rectal bleeding, Change in bowel habits Findings: The perianal exam findings include internal hemorrhoids that prolapse with straining, but spontaneously regress to the resting position (Grade II) and skin tags. The colon (entire examined portion) appeared normal. Patient Profile: This is a 42 year old female. Refer to note in patient chart for documentation of history and physical. Last Colonoscopy: none. The patient's first colonoscopy is today. Impression: - Internal hemorrhoids that prolapse with straining, but spontaneously regress to the resting position (Grade II) and perianal skin tags found on perianal exam. - The entire examined colon is normal. - No specimens collected. Recommendation: - Patient has a contact number available for emergencies. The signs and symptoms of potential delayed complications were discussed with the patient. Return to normal activities tomorrow. Written discharge instructions were provided to the patient. - Resume previous diet. - Continue present medications. - Return to primary care physician as previously scheduled. - Repeat colonoscopy in 10 years for screening purposes. - Return to primary care physician as previously scheduled. Medicines: See the other procedure note for documentation of the administered medications Procedure: Pre-Anesthesia Assessment: - See the other procedure note for documentation of the pre-procedure assessment. - Prior to the procedure, a History and Physical was performed, and patient medications and allergies were reviewed. The patient's tolerance of previous anesthesia was also reviewed. The risks and benefits of the procedure and the sedation options and risks were discussed with the patient. All questions were answered, and informed consent was obtained. Prior Anticoagulants: The patient has taken no anticoagulant or antiplatelet agents. ASA Grade Assessment: III - A patient with severe systemic disease. After reviewing the risks and benefits, the patient was deemed in satisfactory condition to undergo the procedure. After I obtained informed consent, the scope was passed under direct vision. Throughout the procedure, the patient's blood pressure, pulse, and oxygen saturations were monitored continuously. Provation AI/GI Genius was used during withdrawal. The COLONOSCOPE was introduced through the anus and advanced to the cecum, identified by appendiceal orifice and ileocecal valve. The colonoscopy was performed without difficulty. The patient tolerated the procedure well. The quality of the bowel preparation was good. The ileocecal valve, appendiceal orifice, and rectum were photographed. Complications: No immediate complications. Procedure Code(s): --- Professional --- 45594, Colonoscopy, flexible; diagnostic, including collection of specimen(s) by brushing or washing, when performed (separate procedure) Diagnosis Code(s): --- Professional --- K64.1, Second degree hemorrhoids K64.4, Residual hemorrhoidal skin tags R10.11, Right upper quadrant pain K62.5, Hemorrhage of anus and rectum R19.4, Change in bowel h (more content not included)... 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 The examined esophagus was normal. Biopsies were taken with a cold forceps for histology. Verification of patient identification for the specimen was done. Estimated blood loss was minimal. The entire examined stomach was normal. The examined duodenum was normal. Patient Profile: This is a 42 year old female. Refer to note in patient chart for documentation of history and physical. Patient has symptoms. Impression: - Z-line regular, 35 cm from the incisors. - Normal esophagus. Biopsied. - Normal stomach. - Normal examined duodenum. Recommendation: - Patient has a contact number available for emergencies. The signs and symptoms of potential delayed complications were discussed with the patient. Return to normal activities tomorrow. Written discharge instructions were provided to the patient. - Resume previous diet. - Continue present medications. - Await pathology results. - Perform a barium swallow using barium in liquid and tablet form at the next available appointment. - Do a gastric emptying study at the next available appointment. - Return to GI clinic after studies are complete. Medicines: Midazolam 4 mg IV, Fentanyl 100 micrograms IV, Diphenhydramine 50 mg IV Procedure: Pre-Anesthesia Assessment: - Prior to the procedure, a History and Physical was performed, and patient medications and allergies were reviewed. The patient is competent. The risks and benefits of the procedure and the sedation options and risks were discussed with the patient. All questions were answered and informed consent was obtained. Patient identification and proposed procedure were verified by the physician, the nurse and the lpta in the pre-procedure area in the endoscopy suite. Mental Status Examination: alert and oriented. Airway Examination: normal oropharyngeal airway and neck mobility. Respiratory Examination: clear to auscultation. CV Examination: normal. Prophylactic Antibiotics: The patient does not require prophylactic antibiotics. Prior Anticoagulants: The patient has taken no anticoagulant or antiplatelet agents. ASA Grade Assessment: III - A patient with severe systemic disease. After reviewing the risks and benefits, the patient was deemed in satisfactory condition to undergo the procedure. The anesthesia plan was to use monitored anesthesia care (MAC). Immediately prior to administration of medications, the patient was re-assessed for adequacy to receive sedatives. The heart rate, respiratory rate, oxygen saturations, blood pressure, adequacy of pulmonary ventilation, and response to care were monitored throughout the procedure. The physical status of the patient was re-assessed after the procedure. - Sedation was administered by the endoscopist. The sedation level attained was moderate. After obtaining informed consent, the endoscope was passed under direct vision. Throughout the procedure, the patient's blood pressure, pulse, and oxygen saturations were monitored continu (more content not included)... [facility] 12-02-2023 History and physical note [facility] [address] [place] [address] HPI: November 04, 2023: 42-year-old white female here with chronic intermittent nausea and vomiting episodes. She states that this has been going on at least 6 years but has increased over the past 4 years. This is intermittent but when it occurs she vomits every 1/2 hour for about a week and a half. This has been occurring about once per month. The longest she went without an occurrence is 3 months. She has some right upper quadrant pain during these episodes which she attributes to vomiting. She is status postcholecystectomy for gallstones about 6 years ago. She uses Zofran which does not really seem to help anymore, she also gets constipated during these episodes, partially likely because of the Zofran and partially because she cannot keep anything down. She uses leif products and Coke syrup with some help. She is on pantoprazole 40 mg p.o. twice daily for GERD, she tends to have regurgitation, hoarseness, cough and noncardiac chest pain. No dysphagia. She stopped using marijuana 2 months ago, she was using regularly for several years, she did quit for about a year when the symptoms were thought to be due to cyclic vomiting syndrome but it did not seem to make a difference. She has intermittent bright red rectal bleeding, questionable hemorrhoids. No melena. Denies fever or chills. She lost 100 pounds in 1 year unintentionally. 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 She gets routine brain MRIs. She did have a CT scan of the abdomen and pelvis in May 2022 which was unremarkable. Last EGD was done by Dr. Mason in November 2018 and this was normal, negative for celiac. She had a Cohen probe off medications in December 2018 which did reveal reflux in the supine position. 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 Sigmoidoscopy done by Dr. Liu in May 2012 showed negative pathology. UPDATED HISTORY AND PHYSICAL EXAMINATION SERVICE DATE: 12/02/2023 SERVICE TIME: 10:02 AM PHYSICAL EXAM MUST BE COMPLETED ON ADMISSION The History and Physical (completed in the past 30 days) has been reviewed and the patient has been examined. The contents accurately reflect the patient's condition with the following additions or revisions since the H&P was completed. Examination indicates no changes. This H&P can be found in the Electronic Medical Record. 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 She states that this has been going on at least 6 years but has increased over the past 4 years. This is intermittent but when it occurs she vomits every 1/2 hour for about a week and a half. This has been occurring about once per month. The longest she went without an occurrence is 3 months. She has some right upper quadrant pain during these episodes which she attributes to vomiting. She is status postcholecystectomy for gallstones about 6 years ago. She uses Zofran which does not really seem to help anymore, she also gets constipated during these episodes, partially likely because of the Zofran and partially because she cannot keep anything down. She uses leif products and Coke syrup with some help. She is on pantoprazole 40 mg p.o. twice daily for GERD, she tends to have regurgitation, hoarseness, cough and noncardiac chest pain. No dysphagia. She stopped using marijuana 2 months ago, she was using regularly for several years, she did quit for about a year when the symptoms were thought to be due to cyclic vomiting syndrome but it did not seem to make a difference. She has intermittent bright red rectal bleeding, questionable hemorrhoids. No melena. Denies fever or chills. She lost 100 pounds in 1 year unintentionally. 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 She gets routine brain MRIs. She did have a CT scan of the abdomen and pelvis in May 2022 which was unremarkable. Last EGD was done by Dr. Mason in November 2018 and this was normal, negative for celiac. She had a Cohen probe off medications in December 2018 which did reveal reflux in the supine position. 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 Sigmoidoscopy done by Dr. Liu in May 2012 showed negative pathology. UPDATED HISTORY AND PHYSICAL EXAMINATION SERVICE DATE: 12/02/2023 SERVICE TIME: 10:02 AM PHYSICAL EXAM MUST BE COMPLETED ON ADMISSION The History and Physical (completed in the past 30 days) has been reviewed and the patient has been examined. The contents accurately reflect the patient's condition with the following additions or revisions since the H&P was completed. Examination indicates no changes. This H&P can be found in the Electronic Medical Record. 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 The identity of Nida was verified by their date of , (1980), and last four digits of their social security number, ([id number]). The provider demonstrated that confidentially was preserved at their location. Nida was informed that they were responsible for ensuring confidentially was secured at their location. Nida's location was documented for emergency purposes. Nida was informed of the necessary steps that would occur if an emergency was to occur or technology failed during session. The following were addressed in today's visit: Depression screening:DEPRESSION FU PROVIDED ([facility]): Counseling / education in visit Tobacco counseling: provided smoking cessation counseling referred to Stop Smoking Clinic / Program Counseling time: 3-10 minutes Click to Document PHQ-9 COUNSELING PROGRESS NOTE Nida Francis is a 42 year old female here today for Individual Counseling. PC completed screenings, PHQ-9, PETE-7, SDH, [place] Scales, BAM, NUT and Tobacco screening. Client's scores have decreased substantially. PHQ-9:8; PETE-7:5. (April 2023 scores were PHQ-9:22; PETE-7:13) Client continues to have difficulty ending the relationship with her ex and identified that she is meeting her ex for coffee today. PC helped client to explore cognitions and the statement, Well I'm really lonely and she's better than having nothing at all. PC assisted client to explore activities and therapeutic interventions to decrease feelings of loneliness and feeling powerless. PC provided client with various community resources to increase social interaction and to meet new people. PC provided client with information of CoDA meetings in [place]. PC additionally provided client with information on HUD and HUD housing, provided the website, contact information and an apartment complex located in [place] that is affordable for client. PC positively reinforced client attending an AA meeting and willingness to stop smoking. SUBJECTIVE: Client appeared sad or depressed and nervous or anxious. Evaluated Safety and risk: N/A. OBJECTIVE: Assessment of Mood: anxiety and depressed mood Discussed client's use of CBT and Solution Focused Therapy. Goal from ISSP addressed during this session: Increase ability to manage anxiety and restore daily life roles and activities ASSESSMENT: Diagnosis: Visit Diagnosis ICD-9-CM ICD-10-CM 1. Bipolar II disorder ([facility]) Chronic 296.89 F31.81 2. Posttraumatic stress disorder 309.81 F43.10 3. Panic disorder 300.01 F41.0 4. Unspecified mood (affective) disorder ([facility]) Chronic 296.90 F39 5. Bereavement reaction 309.0 F43.20 V62.89 Z63.4 6. Anxiety 300.00 F41.9 Engaged client in learning Review of Thinking Errors and Cognitive Challenges, Emotional Regulation, and screenings Progress toward goal: Minimal Improvement PLAN: Assigned homework/practice of the following: increase social activities, CoDA meeting . Continue psychotherapy Current Service Plan Service Plan Mental Health To provide counseling to minimize symptoms of depression and anxiety Client's symptoms will decrease by 10% over the next 6 month indicated by the PHQ-9 and PEET-7 results Current Care Plan Care Plan: Counseling Care Plan Updates made by Ramses Allen LPC since 11/18/2022 12:00 AM Problem: Anxiety Long-Range Goal: Increase ability to manage anxiety and restore daily life roles and activities Start Date: 11/12/2022 Expected End Date: 11/13/2023 This Visit's Progress: On track Priority: High Task: Assist the client in identifying at least three situations and patterns of thought which precede/maintain anxiety symptoms so the client may respond more adaptively to those situations and thoughts Due Date: 11/13/2023 Priority: High Outcome: Positive Responsible User: Ramses Allen LPC Note: PC will utilize various therapeutic modalities and interventions including CBT and DBT. Goal: Explore and process 2-3 underlying reasons for anxious moods over the next 6 months Start Date: 11/12/2022 Expected End Date: 11/13/2023 This Visit's Progress: On track Priority: High Note: Progress noted through PETE-7 scores. Screening to be completed every 6 months during the service plan review. Goal: Identify, challenge and replace biased, fearful self-talk with reality-based, positive self-talk Start Date: 11/12/2022 Expected End Date: 11/13/2023 This Visit's Progress: On track Priority: High Note: Client will identify negative self talk and beliefs and replace with positive affirmations 1x during each counseling session. Problem: Depression Long-Range Goal: Alleviate depression and restore daily life roles and activities Start Date: 11/12/2022 Expected End Date: 11/13/2023 This Visit's Progress: On track Priority: High Task: Clinician will teach client in the use of behavioral skills training methods such as instruction, modeling, rehearsal, to develop skills and practice, review, and corrective feedback for refining and consolidating use Due Date: 11/13/2023 Priority: High Outcome: Positive Responsible User: Ramses Allen LPC Note: PC will use behavioral activation strategies, DBT and CBT. Goal: Explore and practice at least three evidence-based relaxation activities that reduce depression over the next 6 months Start Date: 11/12/2022 Expected End Date: 12/14/2023 This Visit's Progress: On track Priority: Medium Note: Progress to be monitored through PHQ-9 screenings administered every 6 months during the care plan review. Next appointment: Scheduled next appointment for 12/01/13 at Other: telehealth . documented in this encounter [facility] [employer] Work Phone: 11-04-2023 History of Present illness Narrative Images from the original note were not included. Laine Nida Francis is here today for my opinion regarding nausea and vomiting. My final recommendation will be communicated back to the requesting physician by way of shared medical record or letter. HPI: November 04, 2023: 42-year-old white female here with chronic intermittent nausea and vomiting episodes. She states that this has been going on at least 6 years but has increased over the past 4 years. This is intermittent but when it occurs she vomits every 1/2 hour for about a week and a half. This has been occurring about once per month. The longest she went without an occurrence is 3 months. She has some right upper quadrant pain during these episodes which she attributes to vomiting. She is status postcholecystectomy for gallstones about 6 years ago. She uses Zofran which does not really seem to help anymore, she also gets constipated during these episodes, partially likely because of the Zofran and partially because she cannot keep anything down. She uses leif products and Coke syrup with some help. She is on pantoprazole 40 mg p.o. twice daily for GERD, she tends to have regurgitation, hoarseness, cough and noncardiac chest pain. No dysphagia. She stopped using marijuana 2 months ago, she was using regularly for several years, she did quit for about a year when the symptoms were thought to be due to cyclic vomiting syndrome but it did not seem to make a difference. She has intermittent bright red rectal bleeding, questionable hemorrhoids. No melena. Denies fever or chills. She lost 100 pounds in 1 year unintentionally. 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 She gets routine brain MRIs. She did have a CT scan of the abdomen and pelvis in May 2022 which was unremarkable. Last EGD was done by Dr. Mason in November 2018 and this was normal, negative for celiac. She had a Cohen probe off medications in December 2018 which did reveal reflux in the supine position. 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 Sigmoidoscopy done by Dr. Liu in May 2012 showed negative pathology. Current Outpatient Medications Medication Sig mycophenolate Mofetil (CELLCEPT) 500 mg tablet Take 2 tablets by mouth two times a day. amLODIPine (NORVASC) 5 mg tablet Take 1 tablet by mouth once daily. gabapentin (NEURONTIN) 100 mg capsule Take 2 capsules by mouth three times a day for [address] (PROTONIX) 40 mg tablet TAKE ONE (1) TABLET BY MOUTH TWICE DAILY atorvastatin (LIPITOR) 80 mg tablet TAKE 1 TABLET BY MOUTH ONCE DAILY metoprolol succinate ER (TOPROL XL) 50 mg 24 hr tablet Take 1 tablet by mouth once daily. rOPINIRole (REQUIP) 0.25 mg tablet Take 1 tablet by mouth daily at bedtime. albuterol HFA (PROVENTIL HFA, VENTOLIN HFA) 90 mcg/actuation inhaler INHALE TWO (2) PUFFS EVERY 4 HOURS NEEDED FOR WHEEZING OR SHORTNESS OF BREATH lamoTRIgine (LAMICTAL) 150 mg tablet take 1 tablet by mouth twice daily ondansetron orally disintegrating (ZOFRAN ODT) 4 mg disintegrating tablet Take 1 tablet by mouth every 6 hours as needed for nausea/vomiting. ergocalciferol 50,000 unit capsule (VITAMIN D2, DRISDOL) TAKE 1 CAPSULE BY MOUTH ONCE WEEKLY *EMERGENCY REFILL* acetaminophen (TYLENOL) 325 mg tablet Take 2 tablets by mouth every 6 hours. No current facility-administered medications for this visit. ALLERGIES Allergen Reactions Bees Swelling Site swelling only per patient Tomato GI Upset PAST MEDICAL HISTORY Diagnosis Date Asthma Bipolar 1 disorder (HCC) Borderline personality disorder (HCC) Cannabis dependence (HCC) Cerebral arteritis 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 vasculitis (HCC) CVA (cerebral vascular accident) ([facility]) Gallstones Generalized anxiety disorder GERD (gastroesophageal reflux disease) Hypertension Obesity Panic disorder without agoraphobia Pneumonia Psychiatric disorder anxiety, bi-polar PTSD (post-traumatic stress disorder) Restless leg syndrome Saccular aneurysm Sensorineural hearing loss Stroke ([facility]) 11/2015 PAST SURGICAL HISTORY Procedure Laterality Date DENTAL SURGERY HX wisdom teeth LAPAROSCOPY SURG CHOLECYSTECTOMY 08/24/2017 MIDLINE INSERTION/CONSULT 08/21/2016 ORTHOPEDICS SURGERY HX right foot PICC LINE INSERT/CONSULT 12/19/2015 FAMILY HISTORY Problem Relation Age of Onset Hypertension Mother Depression Mother Hypertension Father Depression Father other (crohns) Maternal Grandmother Cancer Paternal Grandfather Breast Cancer Other 50 Social History Tobacco Use Smoking status: Every Day Packs/day: 1.00 Years: 13.00 Additional pack years: 0.00 Total pack years: 13.00 Types: Cigarettes Smokeless tobacco: Never Vaping Use Vaping Use: Never used Substance Use Topics Alcohol use: No Drug use: Yes Types: Marijuana Comment: weekly REVIEW OF SYSTEMS CONST: Reports weight loss but denies loss of appetite, fatigue, fever, night sweats EYES: Denies eye symptoms. ENMT: Denies ear symptoms. Denies bloody nose. Denies hoarseness, voice changes, cough. CARDIOVASCULAR: Denies chest pain, irregular heartbeat and swelling of ankles. RESPIRATORY: Denies shortness of breath. GI: Reports rectal bleeding, abdominal pain, constipation, heartburn, nausea, vomiting, hemorrhoids but denies belching, diarrhea, dysphagia. MUSCULOSKELETAL: Denies arthritis, back pain and joint swelling. SKIN: Denies itchy skin and rash, jaundice. BREAST: Denies breast problems. NEURO: Denies dizziness, memory loss and paralysis. PSYCH: Denies anxiety and depression. ENDOCRINE: Denies excessive thirst. HEMATOLOGY/LYMPHOLOGY: Denies bruising and enlarged lymph nodes. Reviewed and updated OBJECTIVE BP 104/64 Pulse 64 Ht 5' 5 (1.65m) Wt 173 lb 9.6 oz (78.7kg) LMP 02/23/2022 BMI 28.89 kg/(m^2). EXAM CONST: Appears well nourished. No signs of acute distress present. Speech is normal. Alert and oriented X 3. No involuntary movement. Patient is cooperative. HEAD/FACE: Normocephalic on inspection. EYES: PERRLA. Sclerae clear and anicteric. ENMT: Nasopharynx: Normal to inspection. Oropharynx:Appears normal. Neck: Normal to inspection and palpation. Neck is supple without thyromegaly or lymphadenopathy. No masses appreciated. No JVD. RESP: Respiration rate is normal. Lungs are clear bilaterally. CV: Rate is regular. Rhythm is regular. No gallops or rubs. No heart murmur appreciated. Pedal pulses: 2+ and equal bilaterally. EXTREMITIES: No clubbing, cyanosis or edema. ABDOMEN: Positive bowel sounds in all quadrants. Normal to percussion. Abdomen is soft, nontender, and nondistended without guarding, rigidity or rebound tenderness. No abdominal masses palpable. No palpable hepatosplenomegaly. PERINEUM/ANUS/RECTUM: Exam deferred at this time. LYMPH: No palpable or visible regional lymphadenopathy. MUSCULO: Walks with a normal gait. SKIN: Skin is warm and dry with no jaundice, lesions or rashes. NEURO: No focal deficits appreciated. Data Review: Latest Ref Rn 04/07/2023 04/08/2023 04/09/2023 07/03/2023 07/12/2023 09/26/2023 09/27/2023 WBC 3.70 - 11.00 k/uL 11.91 (H) 10.78 7.41 10.09 10.57 12.19 (H) RBC 3.90 - 5.20 m/uL 5.62 (H) 5.16 4.70 4.54 4.97 4.94 Hemoglobin 11.5 - 15.5 g/dL 16.7 (H) 15.5 14.1 13.7 14.8 15.0 Hematocrit 36.0 - 46.0 % 46.5 (H) 43.2 40.7 40.0 43.8 41.9 MCV 80.0 - 100.0 fL 82.7 83.7 86.6 88.1 88.1 84.8 MCH 26.0 - 34.0 pg 29.7 30.0 30.0 30.2 29.8 30.4 MCHC 30.5 - 36.0 g/dL 35.9 35.9 34.6 34.3 33.8 35.8 RDW-CV 11.5 - 15.0 % 13.2 13.1 13.4 14.6 14.5 13.2 Platelet Count 150 - 400 k/uL 297 250 220 273 296 212 MPV 9.0 - 12.7 fL 12.6 13.2 (H) 12.9 (H) 12.5 12.6 12.9 (H) Neut% % 67.5 63.1 59.9 Abs Neut (ANC) 1.45 - 7.50 k/uL 8.05 (H) 6.81 6.04 Lymph% % 21.7 24.2 29.3 Abs Lymph 1.00 - 4.00 k/uL 2.58 2.61 2.96 [place]% % 9.9 11.6 9.4 Abs [place] <0.87 k/uL 1.18 (H) 1.25 (H) 0.95 (H) Eosin% % 0.2 0.3 0.6 Abs Eosin <0.46 k/uL <0.03 0.03 0.06 Baso% % 0.3 0.2 0.5 Abs Baso <0.11 k/uL 0.03 <0.03 0.05 Immature Gran % % 0.4 0.6 0.3 IMMATURE GRANS (ABS) <0.10 k/uL 0.05 0.06 0.03 NRBC /100 WBC 0.0 0.0 0.0 Absolute nRBC <0.01 k/uL <0.01 <0.01 <0.01 <0.01 <0.01 <0.01 DTYPE Auto Auto Auto Protein, Total 6.3 - 8.0 g/dL 7.1 7.5 7.0 Albumin 3.9 - 4.9 g/dL 4.4 4.6 4.2 Calcium 8.5 - 10.2 mg/dL 10.5 (H) 9.4 8.9 9.3 9.9 9.4 Bilirubin, Total 0.2 - 1.3 mg/dL 0.3 0.5 0.3 Alkaline Phosphatase 34 - 123 U/L 70 79 74 AST 18 23 -- ALT 7 - 38 U/L 23 22 18 Glucose 74 - 99 mg/dL 127 (H) 101 (H) 97 98 111 (H) 129 (H) BUN 7 - 21 mg/dL 57 (H) 52 (H) 30 (H) 14 11 25 (H) Creatinine 0.58 - 0.96 mg/dL 2.06 (H) 1.61 (H) 0.99 (H) 0.70 0.76 0.91 Sodium 136 - 144 mmol/L 125 (L) 130 (L) 137 137 135 (L) 135 (L) Potassium 3.7 - 5.1 mmol/L -- 2.9 (L) 3.5 (L) 3.7 3.3 (L) 2.9 (L) Potassium 2.9 (L) Chloride 97 - 105 mmol/L 81 (L) 87 (L) 99 100 97 93 (L) CO2 22 - 30 mmol/L 23 23 28 25 22 27 Anion Gap 9 - 18 mmol/L 21 (H) 20 (H) 10 12 16 15 eGFR >=60 mL/min/1.73m 30 (L) 41 (L) 73 111 100 81 Color Yellow Light Yellow Yellow Clarity Clear Clear Turbid ! Glucose, Urine Trace, Negative Negative Negative Bilirubin, Urine Negative Negative Negative Ketones, Urine Negative, Trace Trace Negative Specific [place], Ur 1.005 - 1.030 1.027 1.036 (H) Hemoglobin/Blood,Ur Negative, Trace 1+ ! 1+ ! pH, Urine 5.0 - 8.0 6.0 5.5 Protein, Urine Trace, Negative 1+ ! 1+ ! Urobilinogen Normal Negative Normal Nitrites Negative Negative Negative Leukest Negative, 25 Arielle/uL Negative Negative WBC, Urine 0-5 /HPF 0-5 /HPF 0-5 /HPF RBC, Urine 0-3 /HPF 3-5 /HPF ! 0-3 /HPF Epithelial Cells /HPF Few Moderate Phencyclidine Negative Negative Negative Benzodiazepines Urine Negative Negative Negative Cocaine Urine Negative Negative Negative Amphetamines Negative Negative Negative Cannabinoids, Urine Negative Preliminary positive ! Preliminary positive ! Opiates Negative Negative Negative Barbiturates Negative Negative Negative Ethanol, Urine <11 mg/dL <11 <11 Oxycodone, Urine Negative Negative Negative Cholesterol, Total <200 mg/dL 139 Triglyceride <150 mg/dL 84 HDL Cholesterol >39 mg/dL 60 Non HDL Cholesterol <130 mg/dL 79 Fasting Time hrs 12 VLDL Cholesterol <30 mg/dL 17 TC:HDL Ratio <5.10 2.32 LDL Cholesterol <100 mg/dL 62 LDL:HDL Ratio <2.54 1.03 COVID 19 Result See comment Not detected Not detected Influenza A PCR Not Detected Not detected Not detected Influenza B PCR Not Detected Not detected Not detected RSV PCR Not Detected Not detected Not detected Magnesium 1.7 - 2.3 mg/dL 2.8 (H) 2.7 (H) 2.5 (H) 2.2 CORKY High Sensitivity <12 ng/L 9 CORKY High Sensitivity 11 CORKY High Sensitivity 13 (H) d Dimer <500 ng/mL FEU 300 NT Pro BNP <125 pg/mL 463 (H) Culture 10,000 -<50,000 CFU/ml Normal urogenital deepti Lipase 16 - 61 U/L 50 HCG, Qualitative Negative Negative Vitamin D 25 Hydroxy 31.0 - 80.0 ng/mL 43.9 TSH 0.270 - 4.200 mIU/L 0.813 Free T4 0.9 - 1.7 ng/dL 1.6 Phosphorus 2.7 - 4.8 mg/dL 3.1 Ethanol <11 mg/dL <11 Beta HCG, Quantitative For ED Use <5.0 mIU/mL 2.6 Acetaminophen 10 - 30 ug/mL <5 (L) Salicylate 3.0 - 30.0 mg/dL <1.0 (L) Assessment/Plan: 42-year-old female here with chronic intermittent nausea and vomiting episodes. She states that this has been going on at least 6 years but has increased over the past 4 years. This is intermittent but when it occurs she vomits every 1/2 hour for about a week and a half. This has been occurring about once per month. The longest she went without an occurrence is 3 months. She has some right upper quadrant pain during these episodes which she attributes to vomiting. She is status postcholecystectomy for gallstones about 6 years ago. She uses Zofran which does not really seem to help anymore, she also gets constipated during these episodes, partially likely because of the Zofran and partially because she cannot keep anything down. She uses leif products and Coke syrup with some help. She is on pantoprazole 40 mg p.o. twice daily for GERD, she tends to have regurgitation, hoarseness, cough and noncardiac chest pain. She stopped using marijuana 2 months ago, she was using regularly for several years, she did quit for about a year when the symptoms were thought to be due to cyclic vomiting syndrome but it did not seem to make a difference. She has intermittent bright red rectal bleeding, questionable hemorrhoids. She lost 100 pounds in 1 year unintentionally. 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 She gets routine brain MRIs. She did have a CT scan of the abdomen and pelvis in May 2022 which was unremarkable. Last EGD was done by Dr. Mason in November 2018 and this was normal, negative for celiac. She had a Cohen probe off medications in December 2018 which did reveal reflux in the supine position. 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 Sigmoidoscopy done by Dr. Liu in May 2012 showed negative pathology. 1. Proceed with colonoscopy and EGD to assess for colitis, PUD, Kilgore's esophagus or any other GI pathology. 2. May continue pantoprazole 40 mg p.o. twice daily. 3. Use leif products for nausea, Zofran sparingly as this is likely contributing to her constipation issues. 4. Consider repeat imaging due to her weight loss. 5. Follow-up will be determined accordingly. Risks, benefits and alternative procedures were discussed. Procedure instructions provided. Patient understands they will undergo sedation with Propofol under [facility]. The risks and benefits of sedation provided and patient is agreeable. Bev Ríos APRN.[facility] [address] [place] [address], [address] [place] [address] Department: [phone] This note was generated with voice recognition software and may contain errors, including spelling, grammar, syntax and misrecognition of what was dictated, that are not fully corrected documented in this encounter [facility] 11-01-2023 History of Present illness Narrative Chief Complaint Patient presents with Inpatient Discharge Follow Up Medication Management Follow Up SUBJECTIVE: Nida Francis is a 42 year old female here for follow up visit. Last seen October 2022 where medication was continued. Since then, missed follow-ups and appears to have been inpatient for mental health. History of Bipolar 2, PETE, panic, and PTSD. Appears to have recently been in [facility] in September 2023 for depression and SI; discharge PPW unavailable. This is a 42-year-old female presenting to the emergency department for evaluation of depression and suicidal ideations. She is medically cleared and evaluated by behavioral health. She was accepted to [facility] under Dr. Ray. Hospitalization: States that grandmother ; lead to increased depression and SI-checked self into [facility]. Discharged and returned back the same day. Reports manageable symptoms after second discharge. Mood: I still have very sad moments. Tearful about grandmother deaths. States anxiety has been high. Appetite: States over last couple days started eating meals again; previously eating crackers. Sleep/Energy: States sleep has improved over the last couple days; average about 5-6 hours a night. Recent stressors: States friend left, left, and son now living away. Current Tx: Chart Review: Latuda 40mg (Filled October 03) Lamictal 150mg BID (Filled October 30) Requip 0.25mg QHS (Filled October 30) Last Visit: Lamictal 150 BID for mood stability (refills on file; aware of risk without taper) Ativan 1mg daily PRN (#10) Coping/Supports: States that working with Alejandra/counselor. Medical Changes: States been having stomach issues; planning to follow-up shortly. SI/HI/SIB: I dont want to . I am afraid to . Denies SI; states not present since discharge from inpatient. Denies SIB. Denies violence/HI. Psychosis: Endorses delusion of grandmother after her ; stealing at that time. Denies since. Endorses AH in background; denies command in nature. Denies VH/delusions. OARRS REVIEWED by Fiorella Alvarado, LDR RN,ADMINISTRATIVE RESOURCES ASSOCIATE on 11/01/2023 10/14/2023 10/03/2023 1 Gabapentin 100 Mg Capsule 180.[address] PAST PSYCHIATRIC HISTORY: 1. Past psychiatric hospitalizations including substance abuse: Dozen times: Last was three years ago. SI related. Hospitalized 02/18-02/20 2019 at [facility] for SI. Rehab 10-12y ago; marijuana. 2. Past psychiatric diagnosis: Bipolar/Anxiety 3. Past suicide attempts/OD: Endorses OD but not take seriously SIB-cut teenage years 4. Past treatment provider(s): Kori Martinez 5. Past medication trials: Zoloft, Depakote, [place], Wellbutrin, Historical information. Social/Living/Relationships: Lives in her own home with . Has a friend Debbie who is supportive and mother is supportive. Client talks to mother on the phone frequently. One child; trans-moved with father. I came from loving and supportive family. I ws the fat girl in school so not well liked. I have two younger sister and when she joined it came to a head. She was popular. Rolelr coaster of bad emotions. Occupation/Education/Income: Endorses good test scores/ didn't apply self. Graduated summer after he class. SSDI for mental health for the past 8 years. Working at [employer] x 1 year. 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 PCP/Specialist(s): Dr Ely at [facility]. Hx of medication changes: 02/22/20: Decrease ativan 1 mg daily prn to # 15. 10/25/19 Increase Lamictal to 150 mg BID. Interval Substance Use: States that quit smoking marijuana. Denies alcohol use. 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 Social History Substance and Sexual Activity Drug Use Yes Frequency: 1.0 times per week Types: Marijuana Comment: 02/17/21 once a week on average, yesterday smoked more History Smoking Status Every Day Packs/day: 0.75 Years: 26.00 Types: Cigarettes Smokeless Tobacco Never ROS: (08332- Include 2-9 ROS) General: negative Neurological: negative Psychiatric: crying spells, depressed mood, and depression Denies SI and Denies HI OBJECTIVE: Lab results (if available, otherwise theodore n/a): Wt Readings from Last 3 Encounters: 05/31/22 230 lb 9.6 oz (104.6 kg) 03/30/19 201 lb 6.4 oz (91.4 kg) 02/27/19 211 lb 12.8 oz (96.1 kg) VITALS: Last 3 Vitals Flowsheet Row / Visits from 05/31/2022 in [facility]/ Visits from 03/30/2019 in [facility]/ Visits from 03/19/2019 in [facility] Temp -- -- -- Pulse 70 -- 65 BP 128/72 -- 103/72 Resp -- 14 -- Weight 230 lb 9.6 oz (104.6 kg) 201 lb 6.4 oz (91.4 kg) -- Last menstrual period 02/02/2019, not currently . There is no height or weight on file to calculate BMI. Depression Screenin09/16/2023 2:58 PM 1) Have you wished you were or wished you could go to sleep and not wake up? (!) Yes 2) Have you had any actual thoughts of killing yourself? (!) Yes 3) Have you been thinking about how you might do this? (!) Yes 4) Have you had these thoughts and had some intention of acting on them? (!) Yes 5a) Have you started to work out, or worked out the details of how to kill yourself? (!) Yes 5b) Do you intend to carry out this plan? (!) Yes (client has intermittent thoughts of following through, has coping skills she is utilizing) 6a) Have you EVER done anything, started to do anything, or prepared to do anything to end your life? (!) Yes 6b) Was this within the past 3 months? No C-SSRS Risk Level High Risk MENTAL STATUS EXAM: Appearance: Neat + clean and Appropriately dressed Demeanor/Activity: Cooperative and Engaged Psychomotor Activity: N/A Speech: Regular Rate, Regular Rhythm, and Normal Volume Thought Process: Goal-Directed/Linear and Coherent Orientation: Oriented Thought Content/Perception: Hallucinations Mood: Depressed Affect - Range: Full Affect - Other: Stable Behavior/Functioning: Good Eye Contact, Calm, and Pleasant Abnormal Movements: No Suicidal/Homicidal Thoughts: Denies suicidal thoughts and Denies homicidal thoughts Cognition: Intact Insight: Good insight Judgment: No impairment SAFETY RISK ASSESSMENT: Acute: Low risk of harm to self and/or others Chronic: Low risk of harm to self and/or others IMPRESSION: Nida Francis is a 42 year old female presenting for follow up visit today. Appears that symptoms of depression and psychosis increased after of grandmother/end of relationship resulting in recent inpatient hospitalization. Since discharge, appears that symptoms of grief and anxiety continue while symptoms of depression have improved. Does not appear to have concerning symptoms of bonnie. Denies suicidal/homicidal ideation/self-harm. Appears that AH continue; denies command in nature and reports manageable. Does not appear to be experiencing VTH nor appears internally stimulated. No delusions noted or expressed. Denies any recent outburst, violence, aggression, or anger. Agreeable to continue discharge medication while restarting PRN ativan to target anxiety/panic; aware of potential risk and addiction risk. Reports continued administration and no side effects noted from current medication regimen; will continue current medication to minimize risk of decompensation. No acute safety concerns apparent at this time. Appears appropriate for outpatient care. Follow-up in 4-weeks or PRN. Diagnoses: F31.81 Bipolar II disorder ([facility]) (primary encounter diagnosis) Plan : LAMOTRIGINE 150 MG TABLET - Take 1 Tablet by mouth 2 (two) times daily for 60 days LURASIDONE 40 MG TABLET - Take 1 Tablet by mouth every evening for 60 days F41.1 Generalized anxiety disorder Plan : LORAZEPAM 0.5 MG TABLET - Take 1 Tablet by mouth once daily as needed for anxiety (take 1 tablet daily as needed for anxiety) for up to 30 days F41.0 Panic disorder Plan : LORAZEPAM 0.5 MG TABLET - Take 1 Tablet by mouth once daily as needed for anxiety (take 1 tablet daily as needed for anxiety) for up to 30 days F43.10 Posttraumatic stress disorder Plan : LORAZEPAM 0.5 MG TABLET - Take 1 Tablet by mouth once daily as needed for anxiety (take 1 tablet daily as needed for anxiety) for up to 30 days F43.21 Grief TREATMENT PLAN: 1). [x] Medication: Discussed risks, side effects, benefits and alternatives to prescribed medication: Medications: Lamictal 150mg BID for mood stability/depression (Aware of taper requirements and SJS risk) Latuda 40mg QHS for depression/mood stability/psychosis Ativan 0.5mg QD PRN for panic (#7/30 days) Future Considerations: Denies true allergy to Latuda; agreeable to monitor. Denies concerning symptoms over last month Continue counseling Aware of emergency resources. Denies substance use; aware of risk with psychopharmacology. UDS from 09/27/23 reviewed; positive for cannabis. Otherwise, non-concerning. Monitor Qtc; borderline at 495ms September 2023. Consider repeat. Risk/Benefits Reviewed: R/B/A to treatment with Lamictal were discussed including common and severe side effects not limited to but including: maternal and risks (and not to become on psychotropic medications without consulting provider), anticholinergic effects, risk of impaired coordination, rare risk of Bill Anant syndrome, and sedation. Pt verbalized understanding and agrees to proceed with this plan. R/B/A to treatment with Latuda were discussed including common and severe side effects not limited to but including: maternal and risks (and not to become on psychotropic medications without consulting provider), anticholinergic effects, extra pyramidal symptoms, tardive dyskenesia, metabolic syndrome, lowered seizure threshold, agranulocytosis, neuroleptic malignant syndrome, and sedation. Pt verbalized understanding and agrees to proceed with this plan. R/B/A to treatment with Ativan were discussed including common and severe side effects not limited to but including: anticholinergic effects, risk of impaired memory and concentration, risk of worsening depression, ability to potentiate the effects of alcohol, sedation, tolerance, and dependence. hypotension, , ataxia, incoordination, somnolence,dizziness, memory impairment, dysarthria, upper respiratory infection, irritability, decreased libido, respiratory depression, fatigue; and less commonly neutropenia, depression, suicidal thoughts, delirium, liver failure. Please note that tolerance, dependence can develop after chronic use of benzodiazepines (> 4 weeks). Withdrawal can also occur if the medication is discontinued abruptly or tapered too quickly. Talk to your doctor before using this medicine in combination with other sedating agents or respiratory depressants such as opioids and barbiturates and alcohol Pt was advised not to drive, operate dangerous equipment, or make serious decisions while using these medications. Pt verbalized understanding and agrees to proceed with this plan. Patient informed of the following requirements for benzodiazepine treatment. There will not be any early refills The dose will not be increased over the phone Do not give it to anyone and keep it locked and away from children Do not suddenly discontinue the medication. Controlled medications will not be replaced if lost, stolen, damaged or not taken as prescribed Controlled medication prescriptions can only be obtained at an appointment Follow up every 3 months minimum is required by law to receive controlled medications OARRS will be checked regularly. Occasional urine Tox Screen may be ordered and if pt does not comply, the controlled medication will be stopped. Before prescribing, provider reviewed the OARRS and noted no concerns for abuse/ diversion, aberrant behaviors, or adverse effects. Noted that patient continues to progress towards treatment activities and maintains ADLs appropriately. 2.) [x] Participate in an array of activities intended to support and coordinate healthcare, behavioral healthcare, and non-healthcare services. 3). [x] Emergency Contact Plan: Patient understands to call Mobile Crisis at [phone], call 911, or go to the nearest ER as appropriate in case of thoughts of harm to self or others, or acute onset of intolerable side effects. 4.) [x] Physician/LDR RN Order: See PharmD , option trader to document data and make observations of the patient, including observations of physical and mental health symptoms, medication response, side effects and adherence, as well as education. RN will assess patient's health status, provide education with pill boxes and/or administer long-acting injections per orders. TREATMENT RECOMMENDATIONS: [] Primary Care Services [] Pharmacy [] Dental Services [] Case Management Services [] [facility] Services [] Counseling Services [] ACT Services [] ST[facility] Services [] Other documented in this encounter [facility] Work Phone: 10-17-2023 History of Present illness Narrative Nida Francis 1980 42 year old female [id number] October 17, 2023 HPI patient is following up history of drug abuse patient has history of hypertension hyperlipidemia no chest pain tightness or pressure no visual changes dizziness or headache patient also has a history of personality disorder and depression she has been hospitalized lately hospital record and ED visit has been reviewed currently has no suicidal thoughts history of acute renal failure and dyslipidemia the patient is due for a mammogram PAST MEDICAL HISTORY Diagnosis Date Asthma History of vasculitis Pneumonia Psychiatric disorder anxiety, bi-polar Restless leg syndrome Stroke (HCC) 11/2015 Social History Tobacco Use Smoking status: Every Day Packs/day: 1.00 Years: 13.00 Additional pack years: 0.00 Total pack years: 13.00 Types: Cigarettes Smokeless tobacco: Never Vaping Use Vaping Use: Never used Substance Use Topics Alcohol use: No Drug use: Yes Types: Marijuana Comment: weekly FAMILY HISTORY Problem Relation Age of Onset Hypertension Mother Depression Mother Hypertension Father Depression Father other (crohns) Maternal Grandmother Cancer Paternal Grandfather Breast Cancer Other 50 PAST SURGICAL HISTORY Procedure Laterality Date DENTAL SURGERY HX wisdom teeth LAPAROSCOPY SURG CHOLECYSTECTOMY 08/24/2017 MIDLINE INSERTION/CONSULT 08/21/2016 ORTHOPEDICS SURGERY HX right foot PICC LINE INSERT/CONSULT 12/19/2015 R.O.S negative other than HPI & PMH all other SYS reviewed and negative. Current Outpatient Medications Medication Sig Dispense Refill mycophenolate Mofetil (CELLCEPT) 500 mg tablet Take 2 tablets by mouth two times a day. 120 tablet 0 amLODIPine (NORVASC) 5 mg tablet Take 1 tablet by mouth once daily. 30 tablet 2 gabapentin (NEURONTIN) 100 mg capsule Take 2 capsules by mouth three times a day for 30 days. [address] (PROTONIX) 40 mg tablet TAKE ONE (1) TABLET BY MOUTH TWICE DAILY 60 tablet 2 atorvastatin (LIPITOR) 80 mg tablet TAKE 1 TABLET BY MOUTH ONCE DAILY 30 tablet 2 metoprolol succinate ER (TOPROL XL) 50 mg 24 hr tablet Take 1 tablet by mouth once daily. 30 tablet 2 rOPINIRole (REQUIP) 0.25 mg tablet Take 1 tablet by mouth daily at bedtime. 30 tablet 2 albuterol HFA (PROVENTIL HFA, VENTOLIN HFA) 90 mcg/actuation inhaler INHALE TWO (2) PUFFS EVERY 4 HOURS NEEDED FOR WHEEZING OR SHORTNESS OF BREATH 8.5 g 2 lamoTRIgine (LAMICTAL) 150 mg tablet take 1 tablet by mouth twice daily 60 tablet 0 ondansetron orally disintegrating (ZOFRAN ODT) 4 mg disintegrating tablet Take 1 tablet by mouth every 6 hours as needed for nausea/vomiting. 8 tablet 0 QUEtiapine (SEROQUEL) 25 mg tablet Take 1 tablet by mouth two times a day. 60 tablet 0 QUEtiapine (SEROQUEL) 50 mg tablet Take 1 tablet by mouth daily at bedtime. 30 tablet 0 iv contrast (will be provided with radiology test) MRI Brain Inject, intravenously, once for 1 dose.No IV access, insert saline lock prior to beginning of sedation, infusion, injection of imaging exam.Discontinue saline lock post exam. If Pt. has a central line or IVAD, may access for administration according to line specific nursing protocol.Once exam is complete flush line and de-access according to line specific nursing protocol in the MR contrast administration guidelines link 1 Each 0 iv contrast (will be provided with radiology test) MRA Brain Inject, intravenously, once for 1 dose. No IV access, insert saline lock prior to the beginning of sedation, infusion, injection of imaging exam. Discontinue saline lock post exam. If Pt. has a central line or IVAD, may access for administration according to line specific nursing protocol. Once exam is complete flush line and de-access according to line specific nursing protocol in the MR contrast administration guidelines link. 1 Each 0 ergocalciferol 50,000 unit capsule (VITAMIN D2, DRISDOL) TAKE 1 CAPSULE BY MOUTH ONCE WEEKLY *EMERGENCY REFILL* 4 capsule 10 iv contrast (will be provided with radiology test) MRA Brain Inject, intravenously, once for 1 dose. No IV access, insert saline lock prior to the beginning of sedation, infusion, injection of imaging exam. Discontinue saline lock post exam. If Pt. has a central line or IVAD, may access for administration according to line specific nursing protocol. Once exam is complete flush line and de-access according to line specific nursing protocol in the MR contrast administration guidelines link. (Patient not taking: Reported on 11/03/2022) 1 Each 0 iv contrast (will be provided with radiology test) MRI Brain Inject, intravenously, once for 1 dose.No IV access, insert saline lock prior to beginning of sedation, infusion, injection of imaging exam.Discontinue saline lock post exam. If Pt. has a central line or IVAD, may access for administration according to line specific nursing protocol.Once exam is complete flush line and de-access according to line specific nursing protocol in the MR contrast administration guidelines link (Patient not taking: Reported on 11/03/2022) 1 Each 0 iv contrast (will be provided with radiology test) MRI Brain Inject, intravenously, once for 1 dose.No IV access, insert saline lock prior to beginning of sedation, infusion, injection of imaging exam.Discontinue saline lock post exam. If Pt. has a central line or IVAD, may access for administration according to line specific nursing protocol.Once exam is complete flush line and de-access according to line specific nursing protocol in the MR contrast administration guidelines link (Patient not taking: Reported on 11/03/2022) 1 Each 0 iv contrast (will be provided with radiology test) MRA Brain Inject, intravenously, once for 1 dose. No IV access, insert saline lock prior to the beginning of sedation, infusion, injection of imaging exam. Discontinue saline lock post exam. If Pt. has a central line or IVAD, may access for administration according to line specific nursing protocol. Once exam is complete flush line and de-access according to line specific nursing protocol in the MR contrast administration guidelines link. (Patient not taking: Reported on 11/03/2022) 1 Each 0 aspirin 81 mg chewable tablet Take 1 tablet by mouth once daily. 90 tablet 0 acetaminophen (TYLENOL) 325 mg tablet Take 2 tablets by mouth every 6 hours. 0 No current facility-administered medications for this visit. DATA: CBC: No results for input(s): WBC, RBC, HB, HCT, PLT, MCV, MCH, MPV, RDW in the last 24 hours. CMP:No results for input(s): NA, K, CHLOR, CO2, BUN, CREAT, GLUC, TPROT, CA, MG, ALBUMIN, TBILI, ALKPHOS, ALT, AST, ANION in the last 24 hours. No results found for this basename: psa Cholesterol, Total (mg/dL) Date Value 07/12/2023 139 10/14/2020 147 HDL Cholesterol (mg/dL) Date Value 07/12/2023 60 10/14/2020 38 LDL Cholesterol (mg/dL) Date Value 07/12/2023 62 10/14/2020 90 Triglyceride (mg/dL) Date Value 07/12/2023 84 10/14/2020 96 Hemoglobin A1C (%) Date Value 10/14/2020 5.5 02/19/2019 5.5 11/10/2017 5.3 11/09/2017 5.2 11/08/2017 5.3 BP 121/61 Pulse 71 Wt 78 kg (172 lb) LMP 02/23/2022 (Approximate) SpO2 97% BMI 28.62 kg/m PHYSICAL EXAMINATION: General appearance: Well appearing, alert, in no acute distress, well-hydrated, well nourished. Skin: Skin color, texture, turgor normal, no suspicious rashes or lesions Head: Normocephalic, no masses, lesions, tenderness or abnormalities Eyes: Anicteric sclera. Pupils are equally round and reactive to light. Extraocular movements are intact. Ears: External ears normal, canals clear Nose/Sinuses: Nares normal, septum midline, mucosa normal, no drainage or sinus tenderness Oropharynx: Lips, mucosa, and tongue normal, teeth and gums normal, oropharynx normal Neck: Supple, no adenopathy; thyroid symmetric, normal size, no bruits Back: Normal exam Lungs: Lungs clear to auscultation. No wheezing, rhonchi, rales Heart: RRR without murmur, gallop, or rubs. No ectopy Abdomen: Normal abdominal exam, Abdomen soft, non-tender. Bowel sounds normal. No masses, organomegaly Extremities: No deformities, edema, skin discoloration, clubbing or cyanosis. Good capillary refill. Musculoskeletal: No joint swelling, deformity, or tenderness Peripheral pulses: Normal Neuro: No focal deficit/at baseline Feet: Pulses positive No sensory deficit Consultants notes reviewed Most recent CT/CXR reviewed Last EKG reviewed ASSESSMENT/PLAN: 1. Encounter for screening mammogram for malignant neoplasm of breast - ICD9: V76.12, ICD10: Z12.31 (primary diagnosis) Referred to mammogram 2. Cannabis dependence (HCC) - ICD9: 304.30, ICD10: F12.20 Advised to quit 3. Essential hypertension - ICD9: 401.9, ICD10: I10 - Controlled - Recommend home blood pressure monitoring, to bring results to next visit - Encouraged sodium restriction, DASH or Mediterranean diet - Recommend regular aerobic exercise 4. Borderline personality disorder (HCC) - ICD9: 301.83, ICD10: F60.3 Recently hospitalized with inpatient psych reviewed follow-up with a psychiatrist 5. BORA (acute kidney injury) (HCC) - ICD9: 584.9, ICD10: N17.9 CMP 6. Mixed hyperlipidemia - ICD9: 272.2, ICD10: E78.2 - Improving control Fasting lipid panel- Counseled on healthy diet and regular exercise Felecia Ely MD documented in this encounter [facility] 10-14-2023 History of Present illness Narrative Nida Francis engaged in a telehealth session via PHONE with this provider practicing within the [facility]. The identity of Nida was verified by their date of , (1980), and last four digits of their social security number, ([id number]). The provider demonstrated that confidentially was preserved at their location. Nida was informed that they were responsible for ensuring confidentially was secured at their location. Nida's location was documented for emergency purposes. Nida was informed of the necessary steps that would occur if an emergency was to occur or technology failed during session. COUNSELING PROGRESS NOTE Nida Francis is a 42 year old female here today for Individual Counseling PC completed an emotional check-in. Client denies S/I and states she re-admitted herself to [facility] due to bad thoughts Client states, I guess I have to be done with her. PC helped client to gain insight into how loneliness can increase impulsive decisions and behaviors.PC provided client with ways to cope with feelings of loneliness. PC helped client to problem solve ways to continue to set boundaries and limit interaction with her . PC assisted client to recognize co-dependent behaviors, rationalizations of behaviors and their consequences. PC assisted client to explore cognitions surrounding re-homing her dog. Client states,I'm not going to lie. I got a dog to entice Guera back. I'm not a dog person. PC helped client to explore cognitive distortions that support co-dependent behaviors. PC helped client to explore current rationalizations surrounding her . PC helped client to explore client's strengths, and how client's strengths have evolved. SUBJECTIVE: Client appeared neutral or euthymic. Evaluated Safety and risk: N/A. OBJECTIVE: Assessment of Mood: anxiety and depressed mood Discussed client's use of CBT and Trauma Informed Care. Goal from ISSP addressed during this session: Increase ability to manage anxiety and restore daily life roles and activities ASSESSMENT: Diagnosis: F31.81 Bipolar II disorder ([facility]) (primary encounter diagnosis) F43.10 Posttraumatic stress disorder F41.0 Panic disorder F39 Unspecified mood (affective) disorder ([facility]) F43.20,Z63.4 Bereavement reaction F41.9 Anxiety Engaged client in learning Review of Thinking Errors and Cognitive Challenges and understanding cognitive distortions and rationalizations leading to choice making Progress toward goal: Minimal Improvement PLAN: Assigned homework/practice of the following: setting limits . Continue psychotherapy Current Service Plan Service Plan Mental Health To provide counseling to minimize symptoms of depression and anxiety Client's symptoms will decrease by 10% over the next 6 month indicated by the PHQ-9 and PETE-7 results Current Care Plan Care Plan: Counseling Care Plan Updates made by Ramses Allen LPC since 10/14/2022 12:00 AM Problem: Anxiety Long-Range Goal: Increase ability to manage anxiety and restore daily life roles and activities Start Date: 11/12/2022 Expected End Date: 11/13/2023 This Visit's Progress: On track Priority: High Task: Assist the client in identifying at least three situations and patterns of thought which precede/maintain anxiety symptoms so the client may respond more adaptively to those situations and thoughts Due Date: 11/13/2023 Priority: High Outcome: Positive Responsible User: Ramses Allen LPC Note: PC will utilize various therapeutic modalities and interventions including CBT and DBT. Goal: Explore and process 2-3 underlying reasons for anxious moods over the next 6 months Start Date: 11/12/2022 Expected End Date: 11/13/2023 This Visit's Progress: On track Priority: High Note: Progress noted through PETE-7 scores. Screening to be completed every 6 months during the service plan review. Goal: Identify, challenge and replace biased, fearful self-talk with reality-based, positive self-talk Start Date: 11/12/2022 Expected End Date: 11/13/2023 This Visit's Progress: On track Priority: High Note: Client will identify negative self talk and beliefs and replace with positive affirmations 1x during each counseling session. Problem: Depression Long-Range Goal: Alleviate depression and restore daily life roles and activities Start Date: 11/12/2022 Expected End Date: 11/13/2023 This Visit's Progress: On track Priority: High Task: Clinician will teach client in the use of behavioral skills training methods such as instruction, modeling, rehearsal, to develop skills and practice, review, and corrective feedback for refining and consolidating use Due Date: 11/13/2023 Priority: High Outcome: Positive Responsible User: Ramses Allen LPC Note: PC will use behavioral activation strategies, DBT and CBT. Goal: Explore and practice at least three evidence-based relaxation activities that reduce depression over the next 6 months Start Date: 11/12/2022 Expected End Date: 12/14/2023 This Visit's Progress: On track Priority: Medium Note: Progress to be monitored through PHQ-9 screenings administered every 6 months during the care plan review. Next appointment: Scheduled next appointment for 11/04/23 at Other: telehealth . documented in this encounter [place] [facility] Work Phone: 10-05-2023 History of Present illness Narrative Nida Francis engaged in a telehealth session via VIDEO with this provider practicing within the [facility]. The identity of Nida was verified by their date of , (1980), and last four digits of their social security number, ([id number]). The provider demonstrated that confidentially was preserved at their location. Nida was informed that they were responsible for ensuring confidentially was secured at their location. Nida's location was documented for emergency purposes. Nida was informed of the necessary steps that would occur if an emergency was to occur or technology failed during session. SUBJECTIVE: Nida Francis is a 42 year old year old female who presents for an individual psychotherapy appointment and presented with depressed symptoms. Client reports condition is stable. Engaged the client in psycho education regarding CAMS Engaged the client in the completion of Section A of the Suicide Status form and assisted in rating her psychological pain, stress, agitation, self-hate, and hopelessness Engaged the client in identifying RFL and RFD. Engaged the client in the completion of the crisis stabilization plan. Did not present at acute risk of SI Agreed to the utilization of the crisis stabilization plan Agreed to have knives kept under garcia and to give the garcia to someone else. Will complete TX plan and update SSF at the next session. OBJECTIVE: There were no vitals taken for this visit. General: alert, no apparent distress and crying. Mental Health StatusPosture, behavior, mood and affect all within normal limits., Orientation, judgement, insight, and memory all within normal limit., Attention, concentration, and thought content all within normal limits. MEDICATIONS: Self-reported Medication Adherence: As prescribed Medication Side Effects Reviewed: None Current Outpatient Medications Medication Sig Dispense Refill lamoTRIgine (LAMICTAL) 150 mg tablet Take 1 Tablet by mouth 2 (two) times daily for 60 days 60 Tablet 1 LORazepam (ATIVAN) 1 mg tablet Take 1 Tablet by mouth once daily as needed for anxiety (take 1 tablet daily as needed for anxiety) for up to 30 days 10 Tablet 0 ondansetron HCL (ZOFRAN) 4 mg tablet 4 mg amLODIPine (NORVASC) 5 mg tablet 1 fluticasone propionate (FLONASE) 50 mcg/actuation nasal spray SHAKE LQ AND U 1 SPR IEN BID 0 pantoprazole (PROTONIX) 40 mg EC tablet 2 rOPINIRole (REQUIP) 0.25 mg tablet 1 albuterol sulfate 90 mcg/actuation inhaler Inhale 2 Puffs into the lungs once daily as needed atorvastatin (LIPITOR) 80 mg tablet Take 80 mg by mouth once daily 0 ergocalciferol, vitamin D2, (VITAMIN D2) 50,000 unit capsule Take 1 Cap by mouth once a week 3 gabapentin (NEURONTIN) 100 mg capsule Take 200 mg by mouth 3 (three) times daily metoprolol succinate (TOPROL-XL) 50 mg 24 hr tablet Take 50 mg by mouth once daily 0 mycophenolate mofetil (CELLCEPT) 500 mg tablet Take 1,500 mg by mouth 2 (two) times daily 1 No current facility-administered medications for this visit. ASSESSMENT: Diagnosis: F31.81 Bipolar II disorder ([facility]) (primary encounter diagnosis) F43.10 Posttraumatic stress disorder F41.0 Panic disorder F39 Unspecified mood (affective) disorder ([facility]) F43.20,Z63.4 Bereavement reaction F41.9 Anxiety Goals addressed during this session: reduce SI Specific intervention used during this session: Other CAMS Progress toward goal: No Change PLAN: Continue psychotherapy and Continue medication managment documented in this encounter [employer] Work Phone: 09-30-2023 Telephone encounter Note Images from the original note were not included. 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) Rheumatology Katie Zhong MD 08/21/2020 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 DRIVER vasculitis (HCC) Rheumatology Katie Zhong MD 02/21/2020 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 DRIVER vasculitis (HCC) Rheumatology Katie Zhong MD Upcoming Rheumatology Appointments - Next 365 Days No appointments to display CBC: Latest Ref Rng & Units 07/12/2023 09/26/2023 CBC WBC 3.70 - 11.00 k/uL 10.57 12.19 Hemoglobin 11.5 - 15.5 g/dL 14.8 15.0 Hematocrit 36.0 - 46.0 % 43.8 41.9 Platelet Count 150 - 400 k/uL 296 212 Vitamin D: Latest Ref Rng & Units 07/09/2022 07/12/2023 Vitamin D Vitamin D 25 Hydroxy 31.0 - 80.0 ng/mL 61.2 43.9 LFT: Latest Ref Rng & Units 07/12/2023 09/26/2023 CMP Sodium 136 - 144 mmol/L 135 135 Potassium 3.7 - 5.1 mmol/L 3.3 2.9 Chloride 97 - 105 mmol/L 97 93 CO2 22 - 30 mmol/L 22 27 Glucose 74 - 99 mg/dL 111 129 BUN 7 - 21 mg/dL 11 25 Creatinine 0.58 - 0.96 mg/dL 0.76 0.91 Calcium 8.5 - 10.2 mg/dL 9.9 9.4 AST 23 ALT 7 - 38 U/L 22 18 Alkaline Phosphatase 34 - 123 U/L 79 74 Hepatic Function: Creatinine: Latest Ref Rng & Units 07/12/2023 09/26/2023 Creatinine Creatinine 0.58 - 0.96 mg/dL 0.76 0.91 ESR/CRP: None on file in the last 6 months Uric Acid: None on file in the last 6 months Open Standing (Multiple Instance) Lab Orders Remain Interval Expires Ordered Last Rel. CBC [SQCBC] 03/06 Every 3 months 10/24/23 10/25/22 11/03/22 Auth. provider: Katie Zhong MD Assoc. diagnoses: Vasculitis, 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) COMP METABOLIC PANEL [SQCMP] 03/06 Every 3 months 10/25/23 10/25/22 11/03/22 Auth. provider: Katie Zhong MD Assoc. diagnoses: Vasculitis, 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) Open Future (Single Instance) Lab Orders None [facility] 09-30-2023 Miscellaneous Notes Images from the original note were not included. 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) Rheumatology Katie Zhong MD 08/21/2020 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 DRIVER vasculitis (HCC) Rheumatology Katie Zhong MD 02/21/2020 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 DRIVER vasculitis (HCC) Rheumatology Katie Zhong MD Upcoming Rheumatology Appointments - Next 365 Days No appointments to display CBC: Latest Ref Rng & Units 07/12/2023 09/26/2023 CBC WBC 3.70 - 11.00 k/uL 10.57 12.19 Hemoglobin 11.5 - 15.5 g/dL 14.8 15.0 Hematocrit 36.0 - 46.0 % 43.8 41.9 Platelet Count 150 - 400 k/uL 296 212 Vitamin D: Latest Ref Rng & Units 07/09/2022 07/12/2023 Vitamin D Vitamin D 25 Hydroxy 31.0 - 80.0 ng/mL 61.2 43.9 LFT: Latest Ref Rng & Units 07/12/2023 09/26/2023 CMP Sodium 136 - 144 mmol/L 135 135 Potassium 3.7 - 5.1 mmol/L 3.3 2.9 Chloride 97 - 105 mmol/L 97 93 CO2 22 - 30 mmol/L 22 27 Glucose 74 - 99 mg/dL 111 129 BUN 7 - 21 mg/dL 11 25 Creatinine 0.58 - 0.96 mg/dL 0.76 0.91 Calcium 8.5 - 10.2 mg/dL 9.9 9.4 AST 23 ALT 7 - 38 U/L 22 18 Alkaline Phosphatase 34 - 123 U/L 79 74 Hepatic Function: Creatinine: Latest Ref Rng & Units 07/12/2023 09/26/2023 Creatinine Creatinine 0.58 - 0.96 mg/dL 0.76 0.91 ESR/CRP: None on file in the last 6 months Uric Acid: None on file in the last 6 months Open Standing (Multiple Instance) Lab Orders Remain Interval Expires Ordered Last Rel. CBC [SQCBC] 03/06 Every 3 months 10/24/23 10/25/22 11/03/22 Auth. provider: Katie Zhong MD Assoc. diagnoses: Vasculitis, 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) COMP METABOLIC PANEL [SQCMP] 03/06 Every 3 months 10/25/23 10/25/22 11/03/22 Auth. provider: Katie Zhong MD Assoc. diagnoses: Vasculitis, 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) Open Future (Single Instance) Lab Orders None documented in this encounter [facility] 09-27-2023 Note Formatting of this n ote is different from the original. BEHAVIORAL HEALTH INTAKE NOTE SERVICE DATE: 09/27/2023 SERVICE TIME: 0039 Nature of the crisis: depression Presenting Problem: Nida Francis is a 42 year old female brought in to [facility] from Home by family for depression, suicidal ideations. Patient is alert, oriented x 4, tearful, depressed. Pleasant and cooperative with staff. Patient states that she takes her psychiatric meds but recently they are not helping. Patient states that she currently takes Lamictal. She was prescribed Ativan, but does not fill the prescription because she doesn't feel safe with that medication in her possession. She was last hospitalized for mental health 02/18/19 for suicidal ideations. Per [facility] ED note:Patient presents with: Psychiatric Problem: States that she is concerned that she is going to hurt herself, states that she she wants to stop existing. States that she is taking her medications but they have not been helping. States that she took herself out of her house to prevent this This is a 42-year-old female with a history of anxiety, bipolar disorder, depression, prior suicide attempts, presenting to the emergency department for evaluation of suicidal ideation and depression. States she has not been doing well since her grandmother and her left her. Today, she thought of drowning herself in the bathtub. Most recent suicide attempt and psychiatric admission was 15 years ago. SOCIAL HISTORY: Social History Tobacco Use Smoking status: Every Day Packs/day: 1.00 Years: 13.00 Additional pack years: 0.00 Total pack years: 13.00 Types: Cigarettes Smokeless tobacco: Never Vaping Use Vaping Use: Never used Substance Use Topics Alcohol use: No Drug use: Yes Types: Marijuana Comment: weekly MEDICATIONS: amLODIPine (NORVASC) 5 mg tablet^Take 1 tablet by mouth once daily.^Disp: 30 tablet^Rfl: 2 gabapentin (NEURONTIN) 100 mg capsule^Take 2 capsules by mouth three times a day for 30 days.^Disp: 180 capsule^Rfl: [address] (PROTONIX) 40 mg tablet^TAKE ONE (1) TABLET BY MOUTH TWICE DAILY^Disp: 60 tablet^Rfl: 2 atorvastatin (LIPITOR) 80 mg tablet^TAKE 1 TABLET BY MOUTH ONCE DAILY^Disp: 30 tablet^Rfl: 2 metoprolol succinate ER (TOPROL XL) 50 mg 24 hr tablet^Take 1 tablet by mouth once daily.^Disp: 30 tablet^Rfl: 2 rOPINIRole (REQUIP) 0.25 mg tablet^Take 1 tablet by mouth daily at bedtime.^Disp: 30 tablet^Rfl: 2 albuterol HFA (PROVENTIL HFA, VENTOLIN HFA) 90 mcg/actuation inhaler^INHALE TWO (2) PUFFS EVERY 4 HOURS NEEDED FOR WHEEZING OR SHORTNESS OF BREATH^Disp: 8.5 g^Rfl: 2 lamoTRIgine (LAMICTAL) 150 mg tablet^take 1 tablet by mouth twice daily^Disp: 60 tablet^Rfl: 0 ondansetron orally disintegrating (ZOFRAN ODT) 4 mg disintegrating tablet^Take 1 tablet by mouth every 6 hours as needed for nausea/vomiting.^Disp: 8 tablet^Rfl: 0 QUEtiapine (SEROQUEL) 25 mg tablet^Take 1 tablet by mouth two times a day.^Disp: 60 tablet^Rfl: 0 QUEtiapine (SEROQUEL) 50 mg tablet^Take 1 tablet by mouth daily at bedtime.^Disp: 30 tablet^Rfl: 0 mycophenolate Mofetil (CELLCEPT) 500 mg tablet^TAKE 2 TABLETS BY MOUTH TWICE DAILY^Disp: 120 tablet^Rfl: 10 iv contrast (will be provided with radiology test)^MRI Brain Inject, intravenously, once for 1 dose.No IV access, insert saline lock prior to beginning of sedation, infusion, injection of imaging exam.Discontinue saline lock post exam. If Pt. has a central line or IVAD, may access for administration according to line specific nursing protocol.Once exam is complete flush line and de-access according to line specific nursing protocol in the MR contrast administration guidelines link^Disp: 1 Each^Rfl: 0 iv contrast (will be provided with radiology test)^MRA Brain Inject, intravenously, once for 1 dose. No IV access, insert saline lock prior to the beginning of sedation, infusion, injection of imaging exam. Discontinue saline lock post exam. If Pt. has a central line or IVAD, may access for administration according to line specific nursing protocol. Once exam is complete flush line and de-access according to line specific nursing protocol in the MR contrast administration guidelines link.^Disp: 1 Each^Rfl: 0 ergocalciferol 50,000 unit capsule (VITAMIN D2, DRISDOL)^TAKE 1 CAPSULE BY MOUTH ONCE WEEKLY *EMERGENCY REFILL*^Disp: 4 capsule^Rfl: 10 iv contrast (will be provided with radiology test)^MRA Brain Inject, intravenously, once for 1 dose. No IV access, insert saline lock prior to the beginning of sedation, infusion, injection of imaging exam. Discontinue saline lock post exam. If Pt. has a central line or IVAD, may access for administration according to line specific nursing protocol. Once exam is complete flush line and de-access according to line specific nursing protocol in the MR contrast administration guidelines link.^Disp: 1 Each^Rfl: 0 (Patient not taking: Reported on 11/03/2022) iv contrast (will be provided with radiology test)^MRI Brain Inject, intravenously, once for 1 dose.No IV access, insert saline lock prior to beginning of sedation, infusion, injection of imaging exam.Discontinue saline lock post exam. If Pt. has a central line or IVAD, may access for administration according to line specific nursing protocol.Once exam is complete flush line and de-access according to line specific nursing protocol in the MR contrast administration guidelines link^Disp: 1 Each^Rfl: 0 (Patient not taking: Reported on 11/03/2022) iv contrast (will be provided with radiology test)^MRI Brain Inject, intravenously, once for 1 dose.No IV access, insert saline lock prior to beginning of sedation, infusion, injection of imaging exam.Discontinue saline lock post exam. If Pt. has a central line or IVAD, may access for administration according to line specific nursing protocol.Once exam is complete flush line and de-access according to line specific nursing protocol in the MR contrast administration guidelines link^Disp: 1 Each^Rfl: 0 (Patient not taking: Reported on 11/03/2022) iv contrast (will be provided with radiology test)^MRA Brain Inject, intravenously, once for 1 dose. No IV access, insert saline lock prior to the beginning of sedation, infusion, injection of imaging exam. Discontinue saline lock post exam. If Pt. has a central line or IVAD, may access for administration according to line specific nursing protocol. Once exam is complete flush line and de-access according to line specific nursing protocol in the MR contrast administration guidelines link.^Disp: 1 Each^Rfl: 0 (Patient not taking: Reported on 11/03/2022) aspirin 81 mg chewable tablet^Take 1 tablet by mouth once daily.^Disp: 90 tablet^Rfl: 0 acetaminophen (TYLENOL) 325 mg tablet^Take 2 tablets by mouth every 6 hours.^Disp: ^Rfl: 0 Medication Comments documented by Casi Gaytan (Hist), PT on 11/21/2017 at 0948. CAMP DIRECTOR list updated 08/22 Fiorella Mcginnis (Admissions Evaluator) Pt states she hasn't taken any medications this week d/t vomiting. 07/01/17 11/21/17 taking lorazepam only as needed. Not taking the voltaren, so no interactions. TIFFANIE Peck MEDICATION COMPLIANCE: Yes SOCIAL INFORMATION: Living Arrangements: Home Does Patient Have Minor Children for Whom He/She is Responsible?: No Education Level: High School Diploma/GED Employment Status: Unemployed Is the Patient a [place]: No Legal History: No Legal History How Legal Issues Were Verified: [facility] Mink Farmer of Courts Website, [facility]'s Sexual Offender Website Gender Specific Sex at Time of : Female Patient Identified Gender: Female Preferred Pronoun: She/Her/Hers Sexual Orientation: [place]/Lesbian Cultural/Sabianist Concerns Cultural Issues or Concerns That Might Affect Treatment: no Sabianist/Spiritual Issues or Concerns That Might Affect Treatment: no OBSERVATIONS CHEMICAL DEPENDENCY Substance Use: No Referral for Substance Abuse Services: No ACTIVITY Activities of Daily Living: Independent Mobility: No Assistance Continence: Continent MENTAL HEALTH SERVICES: Inpatient Mental Health Treatment History: Over 90 Days Ago SAFE-T Protocol with C-SSRS Step 1: Identify Risk Factors C-SSRS Suicidal Ideation Severity Month 1. Wish to be Yes 2. Current suicidal thoughts Yes 3. Suicidal thoughts w/ Method Yes 4. Suicidal Intent without Specific Plan Yes 5. Intent with Plan Yes C-SSRS Suicidal Behavior: Lifetime Yes (I've cut myself, overdosed a couple times) Past 3 Months No Current and Past Psychiatric Dx: Mood Disorder Presenting Symptoms: Impulsivity, Hopelessness or Despair Family History: Change in treatment: Access to lethal methods: Step 2: Identify Protective Factors (Protective factors may not counteract significant acute suicide risk factors) Internal: External: Step 3: Specific questioning about Thoughts, Plans, and Suicidal Intent - (see Step 1 for Ideation Severity and Behavior) C-SSRS Suicidal Ideation Intensity Month Frequency Many times each day Duration Less than 1 hour/some of the time Controllability Can control thoughts with some difficulty Deterrents Deterrents probably stopped you Reasons for Ideation Completely to end or stop the pain (you couldn't go on living with the pain or how you were feeling) Total Score Suicidal Ideation Intensity Total Score: 17 Step 4: Guidelines to Determine Level of Risk and Develop Interventions to LOWER Risk Level RISK STRATIFICATION TRIAGE High Suicide Risk Moderate Suicide Risk Low Suicide Risk Step 5: Documentation Risk Level : Suicide Risk ( Initial Screening):: High Risk Actual risk determined to be : high risk Clinical Observation: Patient is high risk due to SI with a plan, past suicide attempts Relevant Mental Status Evaluation: Pt is alert, oriented x 4, depressed and tearful. She is calm and cooperative. Methods of Suicide Risk Evaluation: C-SSRS & SAFET Brief Evaluation Summary: Warning Signs: Patient does not feel safe to be home alone. She fears that she will try to commit suicide. Risk Indicators: Pt is impulsive, hopeless, tearful. Protective Factors: Pt has good relationship with her mother. Access to Lethal Means: denies Collateral Sources Used and Relevant Information Obtained: Specific Assessment Data to Support Risk Determination Rationale for Actions Taken and Not Taken: Communication of Current Risk Stratification to: Current Medical Providers: Carol Castorena RN Date 09/27/2023 [id number] Psychiatrist director alumni relations: Name: Dr. Michel Date: 09/27/2023 Time: 034 Other Contact and Role: N/A INTERVENTIONS Sources of Information: Patient, Epic Patient Assessed by Intake via: Telephone Coordination of care with: ED RN, ED LIP Interventions: Therapeutic Interventions Therapeutic Interventions: Crisis Intervention, Crisis Assessment Goals/Objectives: Admission to inpatient psychiatric unit for safety of patient and others, Admission to inpatient psychiatric unit for further evaluation and treatment of symptoms of illness DISPOSITION & PLAN: Patient Assessed by Intake via: Telephone Patient stated goals: Goals: To feel safe, To have reduction in symptoms Coordination of Care with: ED RN, ED LIP Assessment/Impressions: Inpatient Need Plan: Await medical clearance Goals/Objectives: Admission to inpatient psychiatric unit for safety of patient and others, Admission to inpatient psychiatric unit for further evaluation and treatment of symptoms of illness Total time spent (minutes) in Supportive Care for this patient: MEDICAL CLEARANCE Reviewed medical history with physician: Yes Reviewed abnormal labs with physician: Yes Discussed case with Dr. Dr. Ray who states that Nida Francis is a candidate for admission. SIGNATURE: Laura Santana RN PATIENT NAME: Nida Francis DATE: September 27, 2023 TIME: 12:39 AM [facility] 09-27-2023 Miscellaneous Notes BEHAVIORAL HEALTH INTAKE NOTE SERVICE DATE: 09/27/2023 SERVICE TIME: 003 Nature of the crisis: depression Presenting Problem: Nida Francis is a 42 year old female brought in to [facility] ED from Home by family for depression, suicidal ideations. Patient is alert, oriented x 4, tearful, depressed. Pleasant and cooperative with staff. Patient states that she takes her psychiatric meds but recently they are not helping. Patient states that she currently takes Lamictal. She was prescribed Ativan, but does not fill the prescription because she doesn't feel safe with that medication in her possession. She was last hospitalized for mental health 02/18/19 for suicidal ideations. Per [facility] ED note:Patient presents with: Psychiatric Problem: States that she is concerned that she is going to hurt herself, states that she she wants to stop existing. States that she is taking her medications but they have not been helping. States that she took herself out of her house to prevent this This is a 42-year-old female with a history of anxiety, bipolar disorder, depression, prior suicide attempts, presenting to the emergency department for evaluation of suicidal ideation and depression. States she has not been doing well since her grandmother and her left her. Today, she thought of drowning herself in the bathtub. Most recent suicide attempt and psychiatric admission was 15 years ago. SOCIAL HISTORY: Social History Tobacco Use Smoking status: Every Day Packs/day: 1.00 Years: 13.00 Additional pack years: 0.00 Total pack years: 13.00 Types: Cigarettes Smokeless tobacco: Never Vaping Use Vaping Use: Never used Substance Use Topics Alcohol use: No Drug use: Yes Types: Marijuana Comment: weekly MEDICATIONS: amLODIPine (NORVASC) 5 mg tablet^Take 1 tablet by mouth once daily.^Disp: 30 tablet^Rfl: 2 gabapentin (NEURONTIN) 100 mg capsule^Take 2 capsules by mouth three times a day for 30 days.^Disp: 180 capsule^Rfl: [address] (PROTONIX) 40 mg tablet^TAKE ONE (1) TABLET BY MOUTH TWICE DAILY^Disp: 60 tablet^Rfl: 2 atorvastatin (LIPITOR) 80 mg tablet^TAKE 1 TABLET BY MOUTH ONCE DAILY^Disp: 30 tablet^Rfl: 2 metoprolol succinate ER (TOPROL XL) 50 mg 24 hr tablet^Take 1 tablet by mouth once daily.^Disp: 30 tablet^Rfl: 2 rOPINIRole (REQUIP) 0.25 mg tablet^Take 1 tablet by mouth daily at bedtime.^Disp: 30 tablet^Rfl: 2 albuterol HFA (PROVENTIL HFA, VENTOLIN HFA) 90 mcg/actuation inhaler^INHALE TWO (2) PUFFS EVERY 4 HOURS NEEDED FOR WHEEZING OR SHORTNESS OF BREATH^Disp: 8.5 g^Rfl: 2 lamoTRIgine (LAMICTAL) 150 mg tablet^take 1 tablet by mouth twice daily^Disp: 60 tablet^Rfl: 0 ondansetron orally disintegrating (ZOFRAN ODT) 4 mg disintegrating tablet^Take 1 tablet by mouth every 6 hours as needed for nausea/vomiting.^Disp: 8 tablet^Rfl: 0 QUEtiapine (SEROQUEL) 25 mg tablet^Take 1 tablet by mouth two times a day.^Disp: 60 tablet^Rfl: 0 QUEtiapine (SEROQUEL) 50 mg tablet^Take 1 tablet by mouth daily at bedtime.^Disp: 30 tablet^Rfl: 0 mycophenolate Mofetil (CELLCEPT) 500 mg tablet^TAKE 2 TABLETS BY MOUTH TWICE DAILY^Disp: 120 tablet^Rfl: 10 iv contrast (will be provided with radiology test)^MRI Brain Inject, intravenously, once for 1 dose.No IV access, insert saline lock prior to beginning of sedation, infusion, injection of imaging exam.Discontinue saline lock post exam. If Pt. has a central line or IVAD, may access for administration according to line specific nursing protocol.Once exam is complete flush line and de-access according to line specific nursing protocol in the MR contrast administration guidelines link^Disp: 1 Each^Rfl: 0 iv contrast (will be provided with radiology test)^MRA Brain Inject, intravenously, once for 1 dose. No IV access, insert saline lock prior to the beginning of sedation, infusion, injection of imaging exam. Discontinue saline lock post exam. If Pt. has a central line or IVAD, may access for administration according to line specific nursing protocol. Once exam is complete flush line and de-access according to line specific nursing protocol in the MR contrast administration guidelines link.^Disp: 1 Each^Rfl: 0 ergocalciferol 50,000 unit capsule (VITAMIN D2, DRISDOL)^TAKE 1 CAPSULE BY MOUTH ONCE WEEKLY *EMERGENCY REFILL*^Disp: 4 capsule^Rfl: 10 iv contrast (will be provided with radiology test)^MRA Brain Inject, intravenously, once for 1 dose. No IV access, insert saline lock prior to the beginning of sedation, infusion, injection of imaging exam. Discontinue saline lock post exam. If Pt. has a central line or IVAD, may access for administration according to line specific nursing protocol. Once exam is complete flush line and de-access according to line specific nursing protocol in the MR contrast administration guidelines link.^Disp: 1 Each^Rfl: 0 (Patient not taking: Reported on 11/03/2022) iv contrast (will be provided with radiology test)^MRI Brain Inject, intravenously, once for 1 dose.No IV access, insert saline lock prior to beginning of sedation, infusion, injection of imaging exam.Discontinue saline lock post exam. If Pt. has a central line or IVAD, may access for administration according to line specific nursing protocol.Once exam is complete flush line and de-access according to line specific nursing protocol in the MR contrast administration guidelines link^Disp: 1 Each^Rfl: 0 (Patient not taking: Reported on 11/03/2022) iv contrast (will be provided with radiology test)^MRI Brain Inject, intravenously, once for 1 dose.No IV access, insert saline lock prior to beginning of sedation, infusion, injection of imaging exam.Discontinue saline lock post exam. If Pt. has a central line or IVAD, may access for administration according to line specific nursing protocol.Once exam is complete flush line and de-access according to line specific nursing protocol in the MR contrast administration guidelines link^Disp: 1 Each^Rfl: 0 (Patient not taking: Reported on 11/03/2022) iv contrast (will be provided with radiology test)^MRA Brain Inject, intravenously, once for 1 dose. No IV access, insert saline lock prior to the beginning of sedation, infusion, injection of imaging exam. Discontinue saline lock post exam. If Pt. has a central line or IVAD, may access for administration according to line specific nursing protocol. Once exam is complete flush line and de-access according to line specific nursing protocol in the MR contrast administration guidelines link.^Disp: 1 Each^Rfl: 0 (Patient not taking: Reported on 11/03/2022) aspirin 81 mg chewable tablet^Take 1 tablet by mouth once daily.^Disp: 90 tablet^Rfl: 0 acetaminophen (TYLENOL) 325 mg tablet^Take 2 tablets by mouth every 6 hours.^Disp: ^Rfl: 0 Medication Comments documented by Casi Gaytan (Hist), PT on 11/21/2017 at 0948. CAMP DIRECTOR list updated 08/22 Fiorella Mcginnis (Admissions Evaluator) Pt states she hasn't taken any medications this week d/t vomiting. 07/01/17 11/21/17 taking lorazepam only as needed. Not taking the voltaren, so no interactions. TIFFANIE Peck MEDICATION COMPLIANCE: Yes SOCIAL INFORMATION: Living Arrangements: Home Does Patient Have Minor Children for Whom He/She is Responsible?: No Education Level: High School Diploma/GED Employment Status: Unemployed Is the Patient a [place]: No Legal History: No Legal History How Legal Issues Were Verified: [facility] Mink Farmer of Courts Website, [facility] Gender Specific Sex at Time of : Female Patient Identified Gender: Female Preferred Pronoun: She/Her/Hers Sexual Orientation: [place]/Lesbian Cultural/Sabianist Concerns Cultural Issues or Concerns That Might Affect Treatment: no Sabianist/Spiritual Issues or Concerns That Might Affect Treatment: no OBSERVATIONS CHEMICAL DEPENDENCY Substance Use: No Referral for Substance Abuse Services: No ACTIVITY Activities of Daily Living: Independent Mobility: No Assistance Continence: Continent MENTAL HEALTH SERVICES: Inpatient Mental Health Treatment History: Over 90 Days Ago SAFE-T Protocol with C-SSRS Step 1: Identify Risk Factors C-SSRS Suicidal Ideation Severity Month 1. Wish to be Yes 2. Current suicidal thoughts Yes 3. Suicidal thoughts w/ Method Yes 4. Suicidal Intent without Specific Plan Yes 5. Intent with Plan Yes C-SSRS Suicidal Behavior: Lifetime Yes (I've cut myself, overdosed a couple times) Past 3 Months No Current and Past Psychiatric Dx: Mood Disorder Presenting Symptoms: Impulsivity, Hopelessness or Despair Family History: Change in treatment: Access to lethal methods: Step 2: Identify Protective Factors (Protective factors may not counteract significant acute suicide risk factors) Internal: External: Step 3: Specific questioning about Thoughts, Plans, and Suicidal Intent - (see Step 1 for Ideation Severity and Behavior) C-SSRS Suicidal Ideation Intensity Month Frequency Many times each day Duration Less than 1 hour/some of the time Controllability Can control thoughts with some difficulty Deterrents Deterrents probably stopped you Reasons for Ideation Completely to end or stop the pain (you couldn't go on living with the pain or how you were feeling) Total Score Suicidal Ideation Intensity Total Score: 17 Step 4: Guidelines to Determine Level of Risk and Develop Interventions to LOWER Risk Level RISK STRATIFICATION TRIAGE High Suicide Risk Moderate Suicide Risk Low Suicide Risk Step 5: Documentation Risk Level : Suicide Risk ( Initial Screening):: High Risk Actual risk determined to be : high risk Clinical Observation: Patient is high risk due to SI with a plan, past suicide attempts Relevant Mental Status Evaluation: Pt is alert, oriented x 4, depressed and tearful. She is calm and cooperative. Methods of Suicide Risk Evaluation: C-SSRS & SAFET Brief Evaluation Summary: Warning Signs: Patient does not feel safe to be home alone. She fears that she will try to commit suicide. Risk Indicators: Pt is impulsive, hopeless, tearful. Protective Factors: Pt has good relationship with her mother. Access to Lethal Means: denies Collateral Sources Used and Relevant Information Obtained: Specific Assessment Data to Support Risk Determination Rationale for Actions Taken and Not Taken: Communication of Current Risk Stratification to: Current Medical Providers: Carol Castorena RN Date 09/27/2023 [id number] Psychiatrist director alumni relations: Name: Dr. Michel Date: 09/27/2023 Time: 034 Other Contact and Role: N/A INTERVENTIONS Sources of Information: Patient, Epic Patient Assessed by Intake via: Telephone Coordination of care with: ED RN, ABEL RAMIREZ Interventions: Therapeutic Interventions Therapeutic Interventions: Crisis Intervention, Crisis Assessment Goals/Objectives: Admission to inpatient psychiatric unit for safety of patient and others, Admission to inpatient psychiatric unit for further evaluation and treatment of symptoms of illness DISPOSITION & PLAN: Patient Assessed by Intake via: Telephone Patient stated goals: Goals: To feel safe, To have reduction in symptoms Coordination of Care with: ED RN, ABEL RAMIREZ Assessment/Impressions: Inpatient Need Plan: Await medical clearance Goals/Objectives: Admission to inpatient psychiatric unit for safety of patient and others, Admission to inpatient psychiatric unit for further evaluation and treatment of symptoms of illness Total time spent (minutes) in Supportive Care for this patient: MEDICAL CLEARANCE Reviewed medical history with physician: Yes Reviewed abnormal labs with physician: Yes Discussed case with Dr. Dr. Ray who states that Nida Francis is a candidate for admission. SIGNATURE: Laura Santana RN PATIENT NAME: Nida Francsi DATE: September 27, 2023 TIME: 12:39 AM documented in this encounter [facility] 09-16-2023 History of Present illness Narrative Nida Francis engaged in a telehealth session via PHONE with this provider practicing within the [facility]. The identity of Nida was verified by their date of , (1980), and last four digits of their social security number, ([id number]). The provider demonstrated that confidentially was preserved at their location. Nida was informed that they were responsible for ensuring confidentially was secured at their location. Nida's location was documented for emergency purposes. Nida was informed of the necessary steps that would occur if an emergency was to occur or technology failed during session. COUNSELING PROGRESS NOTE Nida Francis is a 42 year old female here today for Individual Counseling Client identified as feeling alone, without support, grieving her grandmother, the break up of her marriage, and the break up of a friendship with her best friend. Client was tearful and in emotional distress throughout the session.Client states she is considering taking her dog to the custodial in order to find affordable living and moving. PC helped client to process her options and cognitions helping client to look at choices that would result in another loss. Client additionally states feeling a lack of support from her child and their unwillingness to move to another location with client. PC provided positive regard, supportive listening, validation and empathetic statements while assisting client to explore cognitions impacting mood and S/I. Client identified feeling afraid of following through with suicidal thoughts. PC assessed client for a plan of follow through, created a safety plan based on client's input, outreached additional support from [facility] (made a referral to Urgent Care, outreached client's provider, assisted client in finding community supports and created a plan to decrease being alone with S/I over the weekend.PC encouraged client to seek support from [facility] or to go to the nearest ER. PC helped client to explore current concerns regarding work and hospitalization placement. If I knew I could go to [facility] or [facility], I'd go right away. If I have to go to [facility] I think I really would kill myself in there. PC positively reinforced client's thoughts to be admitted, I really need to go in for a week and get a break from all this. I know I need help. I just need to request time off from work. PC helped client to process concerns regarding returning to treatment with her medication provider. I've missed a lot of appointments with Fiorella, I don't know if she would take me back. My PCP has been prescribing me my medication. PC explored with client current medication compliance. PC outreached staff to help client to make an appointment with her provider. PC to continue to check in with client via texts and phone calls. Electrical Maintenance Engineer to assist client and Alejandra Yeh to support client in addition to counseling sessions. SUBJECTIVE: Client appeared sad or depressed, nervous or anxious, and worried or scared. Evaluated Safety and risk: Positive; a Lethality/Suicide Assessment was completed. Please reference for details.. OBJECTIVE: Assessment of Mood: anxiety, depressed mood, difficulty concentrating, feelings of worthlessness/guilt, hopelessness, recurrent thoughts of , suicidal thoughts with specific plan, and tearfulness Discussed client's use of CBT and Solution Focused Therapy. Goal from ISSP addressed during this session: Alleviate depression and restore daily life roles and activities ASSESSMENT: Diagnosis: F31.81 Bipolar II disorder ([facility]) (primary encounter diagnosis) F43.10 Posttraumatic stress disorder F41.0 Panic disorder F39 Unspecified mood (affective) disorder ([facility]) F43.20,Z63.4 Bereavement reaction F41.9 Anxiety Engaged client in learning Review of Thinking Errors and Cognitive Challenges and Emotional Regulation Progress toward goal: Deterioration suicidal Ideation due to multiple losses and lack of support PLAN: Assigned homework/practice of the following: stay with friends and family, ask employment for time off in order to engage in planned hospitalization . Continue psychotherapy Current Service Plan Service Plan Mental Health To provide counseling to minimize symptoms of depression and anxiety Client's symptoms will decrease by 10% over the next 6 month indicated by the PHQ-9 and PETE-7 results Current Care Plan Care Plan: Counseling Care Plan Updates made by Ramses Allen LPC since 09/16/2022 12:00 AM Problem: Anxiety Long-Range Goal: Increase ability to manage anxiety and restore daily life roles and activities Start Date: 11/12/2022 Expected End Date: 11/13/2023 This Visit's Progress: On track Priority: High Task: Assist the client in identifying at least three situations and patterns of thought which precede/maintain anxiety symptoms so the client may respond more adaptively to those situations and thoughts Due Date: 11/13/2023 Priority: High Outcome: Positive Responsible User: Ramses Allen LPC Note: PC will utilize various therapeutic modalities and interventions including CBT and DBT. Goal: Explore and process 2-3 underlying reasons for anxious moods over the next 6 months Start Date: 11/12/2022 Expected End Date: 11/13/2023 This Visit's Progress: On track Priority: High Note: Progress noted through PETE-7 scores. Screening to be completed every 6 months during the service plan review. Goal: Identify, challenge and replace biased, fearful self-talk with reality-based, positive self-talk Start Date: 11/12/2022 Expected End Date: 11/13/2023 This Visit's Progress: On track Priority: High Note: Client will identify negative self talk and beliefs and replace with positive affirmations 1x during each counseling session. Problem: Depression Long-Range Goal: Alleviate depression and restore daily life roles and activities Start Date: 11/12/2022 Expected End Date: 11/13/2023 This Visit's Progress: On track Priority: High Task: Clinician will teach client in the use of behavioral skills training methods such as instruction, modeling, rehearsal, to develop skills and practice, review, and corrective feedback for refining and consolidating use Due Date: 11/13/2023 Priority: High Outcome: Positive Responsible User: Ramses Allen LPC Note: PC will use behavioral activation strategies, DBT and CBT. Goal: Explore and practice at least three evidence-based relaxation activities that reduce depression over the next 6 months Start Date: 11/12/2022 Expected End Date: 12/14/2023 This Visit's Progress: On track Priority: Medium Note: Progress to be monitored through PHQ-9 screenings administered every 6 months during the care plan review. Next appointment: Scheduled next appointment for 09/30/23 at Other: telehealth . documented in this encounter [place] [facility] Work Phone: 09-14-2023 Telephone encounter Note Patient phones requesting refills as follows: Requested Prescriptions Pending Prescriptions Disp Refills amLODIPine (NORVASC) 5 mg tablet 30 tablet 2 Sig: Take 1 tablet by mouth once daily. gabapentin (NEURONTIN) 100 mg capsule 180 capsule 0 Sig: Take 2 capsules by mouth three times a day for [address] (PROTONIX) 40 mg tablet 60 tablet 2 Sig: TAKE ONE (1) TABLET BY MOUTH TWICE DAILY atorvastatin (LIPITOR) 80 mg tablet 30 tablet 2 Sig: TAKE 1 TABLET BY MOUTH ONCE DAILY metoprolol succinate ER (TOPROL XL) 50 mg 24 hr tablet 30 tablet 2 Sig: Take 1 tablet by mouth once daily. rOPINIRole (REQUIP) 0.25 mg tablet 30 tablet 2 Sig: Take 1 tablet by mouth daily at bedtime. albuterol HFA (PROVENTIL HFA, VENTOLIN HFA) 90 mcg/actuation inhaler 8.5 g 2 Sig: INHALE TWO (2) PUFFS EVERY 4 HOURS NEEDED FOR WHEEZING OR SHORTNESS OF BREATH Please review and advise. Jeannette Diaz MA [facility] 09-14-2023 Miscellaneous Notes Patient phones requesting refills as follows: Requested Prescriptions Pending Prescriptions Disp Refills amLODIPine (NORVASC) 5 mg tablet 30 tablet 2 Sig: Take 1 tablet by mouth once daily. gabapentin (NEURONTIN) 100 mg capsule 180 capsule 0 Sig: Take 2 capsules by mouth three times a day for [address] (PROTONIX) 40 mg tablet 60 tablet 2 Sig: TAKE ONE (1) TABLET BY MOUTH TWICE DAILY atorvastatin (LIPITOR) 80 mg tablet 30 tablet 2 Sig: TAKE 1 TABLET BY MOUTH ONCE DAILY metoprolol succinate ER (TOPROL XL) 50 mg 24 hr tablet 30 tablet 2 Sig: Take 1 tablet by mouth once daily. rOPINIRole (REQUIP) 0.25 mg tablet 30 tablet 2 Sig: Take 1 tablet by mouth daily at bedtime. albuterol HFA (PROVENTIL HFA, VENTOLIN HFA) 90 mcg/actuation inhaler 8.5 g 2 Sig: INHALE TWO (2) PUFFS EVERY 4 HOURS NEEDED FOR WHEEZING OR SHORTNESS OF BREATH Please review and advise. Jeannette Diaz MA documented in this encounter [facility] 09-07-2023 History of Present illness Narrative Nida Francis engaged in a telehealth session via PHONE with this provider practicing within the [facility]. The identity of Nida was verified by their date of , (1980), and last four digits of their social security number, ([id number]). The provider demonstrated that confidentially was preserved at their location. Nida was informed that they were responsible for ensuring confidentially was secured at their location. Nida's location was documented for emergency purposes. Nida was informed of the necessary steps that would occur if an emergency was to occur or technology failed during session. COUNSELING PROGRESS NOTE Nida Francis is a 42 year old female here today for Individual Counseling PC completed an emotional check-in. Client identified with being in emotional distress, confused and angry. PC provided supportive listening as client processed the loss of her marriage which client believes, It's real this time. She has a girlfriend. she's choosing the wrong path, she just won't listen to me. PC assisted client to explore and process the statement. PC assisted client to explore client's willingness to try and fix the relationship and the impact on current emotions, cognitions, values. PC helped client identify dysfunction and behaviors that client chose to ignore. PC helped client to identify ways client enabled client's . PC helped clien tto explore how client's cognitions and wants may have created an unrealistic beliefs. PC provided validation, support, empathetic statements, exploratory questioning, education while helping client to process current events and emotions. SUBJECTIVE: Client appeared sad or depressed and nervous or anxious. Evaluated Safety and risk: N/A. OBJECTIVE: Assessment of Mood: anxiety, depressed mood, and tearfulness Discussed client's use of CBT. Goal from ISSP addressed during this session: Increase ability to manage anxiety and restore daily life roles and activities ASSESSMENT: Diagnosis: Bipolar II disorder, Panic disorder, PTSD, Anxiety F41.9 Anxiety Engaged client in learning Review of Thinking Errors and Cognitive Challenges, Emotional Regulation, and processing loss of marriage Progress toward goal: Moderate Improvement PLAN: Assigned homework/practice of the following: Tolerating Distress. Continue psychotherapy Current Service Plan Service Plan Mental Health To provide counseling to minimize symptoms of depression and anxiety Client's symptoms will decrease by 10% over the next 6 month indicated by the PHQ-9 and PETE-7 results Current Care Plan Care Plan: Counseling Care Plan Updates made by Ramses Allen LPC since 09/07/2022 12:00 AM Problem: Anxiety Long-Range Goal: Increase ability to manage anxiety and restore daily life roles and activities Start Date: 11/12/2022 Expected End Date: 11/13/2023 This Visit's Progress: On track Priority: High Task: Assist the client in identifying at least three situations and patterns of thought which precede/maintain anxiety symptoms so the client may respond more adaptively to those situations and thoughts Due Date: 11/13/2023 Priority: High Outcome: Positive Responsible User: Ramses Allen LPC Note: PC will utilize various therapeutic modalities and interventions including CBT and DBT. Goal: Explore and process 2-3 underlying reasons for anxious moods over the next 6 months Start Date: 11/12/2022 Expected End Date: 11/13/2023 This Visit's Progress: On track Priority: High Note: Progress noted through PETE-7 scores. Screening to be completed every 6 months during the service plan review. Goal: Identify, challenge and replace biased, fearful self-talk with reality-based, positive self-talk Start Date: 11/12/2022 Expected End Date: 11/13/2023 This Visit's Progress: On track Priority: High Note: Client will identify negative self talk and beliefs and replace with positive affirmations 1x during each counseling session. Problem: Depression Long-Range Goal: Alleviate depression and restore daily life roles and activities Start Date: 11/12/2022 Expected End Date: 11/13/2023 This Visit's Progress: On track Priority: High Task: Clinician will teach client in the use of behavioral skills training methods such as instruction, modeling, rehearsal, to develop skills and practice, review, and corrective feedback for refining and consolidating use Due Date: 11/13/2023 Priority: High Outcome: Positive Responsible User: Ramses Allen LPC Note: PC will use behavioral activation strategies, DBT and CBT. Goal: Explore and practice at least three evidence-based relaxation activities that reduce depression over the next 6 months Start Date: 11/12/2022 Expected End Date: 12/14/2023 This Visit's Progress: On track Priority: Medium Note: Progress to be monitored through PHQ-9 screenings administered every 6 months during the care plan review. Next appointment: Scheduled next appointment for 09/16/23 at Other: telehealth . documented in this encounter [facility] Work Phone: 08-29-2023 History of Present illness Narrative Nida Francis 1980 42 year old female [id number] August 29, 2023 HPI Patient is here for a wellness visit and physical examination has multiple medical problem denies any new complaint no chest pain shortness of breath or abdominal pain. History of personality disorder history of obesity and hypertension has no chest pain no visual changes no dizziness no headache PAST MEDICAL HISTORY Diagnosis Date Asthma History of vasculitis Pneumonia Psychiatric disorder anxiety, bi-polar Restless leg syndrome Stroke (HCC) 11/2015 Social History Tobacco Use Smoking status: Every Day Packs/day: 1.00 Years: 13.00 Additional pack years: 0.00 Total pack years: 13.00 Types: Cigarettes Smokeless tobacco: Never Vaping Use Vaping Use: Never used Substance Use Topics Alcohol use: No Drug use: Yes Types: Marijuana Comment: weekly FAMILY HISTORY Problem Relation Age of Onset Hypertension Mother Depression Mother Hypertension Father Depression Father other (crohns) Maternal Grandmother Cancer Paternal Grandfather Breast Cancer Other 50 PAST SURGICAL HISTORY Procedure Laterality Date DENTAL SURGERY HX wisdom teeth LAPAROSCOPY SURG CHOLECYSTECTOMY 08/24/2017 MIDLINE INSERTION/CONSULT 08/21/2016 ORTHOPEDICS SURGERY HX right foot PICC LINE INSERT/CONSULT 12/19/2015 R.O.S negative other than HPI & PMH all other SYS reviewed and negative. Current Outpatient Medications Medication Sig Dispense Refill lamoTRIgine (LAMICTAL) 150 mg tablet take 1 tablet by mouth twice daily 60 tablet 0 ondansetron orally disintegrating (ZOFRAN ODT) 4 mg disintegrating tablet Take 1 tablet by mouth every 6 hours as needed for nausea/vomiting. 8 tablet 0 atorvastatin (LIPITOR) 80 mg tablet TAKE 1 TABLET BY MOUTH ONCE DAILY 90 tablet 0 QUEtiapine (SEROQUEL) 25 mg tablet Take 1 tablet by mouth two times a day. 60 tablet 0 QUEtiapine (SEROQUEL) 50 mg tablet Take 1 tablet by mouth daily at bedtime. 30 tablet 0 mycophenolate Mofetil (CELLCEPT) 500 mg tablet TAKE 2 TABLETS BY MOUTH TWICE DAILY 120 tablet 10 iv contrast (will be provided with radiology test) MRI Brain Inject, intravenously, once for 1 dose.No IV access, insert saline lock prior to beginning of sedation, infusion, injection of imaging exam.Discontinue saline lock post exam. If Pt. has a central line or IVAD, may access for administration according to line specific nursing protocol.Once exam is complete flush line and de-access according to line specific nursing protocol in the MR contrast administration guidelines link 1 Each 0 iv contrast (will be provided with radiology test) MRA Brain Inject, intravenously, once for 1 dose. No IV access, insert saline lock prior to the beginning of sedation, infusion, injection of imaging exam. Discontinue saline lock post exam. If Pt. has a central line or IVAD, may access for administration according to line specific nursing protocol. Once exam is complete flush line and de-access according to line specific nursing protocol in the MR contrast administration guidelines link. 1 Each 0 metoprolol succinate ER (TOPROL XL) 50 mg 24 hr tablet TAKE 1 TABLET BY MOUTH ONCE DAILY 30 tablet 10 rOPINIRole (REQUIP) 0.25 mg tablet TAKE 1 TABLET BY MOUTH NIGHTLY AT BEDTIME 30 tablet 10 albuterol HFA (PROVENTIL HFA, VENTOLIN HFA) 90 mcg/actuation inhaler INHALE TWO (2) PUFFS EVERY 4 HOURS NEEDED FOR WHEEZING OR SHORTNESS OF BREATH 8.5 g 10 gabapentin (NEURONTIN) 100 mg capsule Take 2 capsules by mouth three times daily for 28 days. 180 capsule 10 ergocalciferol 50,000 unit capsule (VITAMIN D2, DRISDOL) TAKE 1 CAPSULE BY MOUTH ONCE WEEKLY *EMERGENCY REFILL* 4 capsule 10 amLODIPine (NORVASC) 5 mg tablet Take 1 tablet by mouth once daily. [address] (PROTONIX) 40 mg tablet TAKE ONE (1) TABLET BY MOUTH TWICE DAILY 60 tablet 10 iv contrast (will be provided with radiology test) MRA Brain Inject, intravenously, once for 1 dose. No IV access, insert saline lock prior to the beginning of sedation, infusion, injection of imaging exam. Discontinue saline lock post exam. If Pt. has a central line or IVAD, may access for administration according to line specific nursing protocol. Once exam is complete flush line and de-access according to line specific nursing protocol in the MR contrast administration guidelines link. (Patient not taking: Reported on 11/03/2022) 1 Each 0 iv contrast (will be provided with radiology test) MRI Brain Inject, intravenously, once for 1 dose.No IV access, insert saline lock prior to beginning of sedation, infusion, injection of imaging exam.Discontinue saline lock post exam. If Pt. has a central line or IVAD, may access for administration according to line specific nursing protocol.Once exam is complete flush line and de-access according to line specific nursing protocol in the MR contrast administration guidelines link (Patient not taking: Reported on 11/03/2022) 1 Each 0 iv contrast (will be provided with radiology test) MRI Brain Inject, intravenously, once for 1 dose.No IV access, insert saline lock prior to beginning of sedation, infusion, injection of imaging exam.Discontinue saline lock post exam. If Pt. has a central line or IVAD, may access for administration according to line specific nursing protocol.Once exam is complete flush line and de-access according to line specific nursing protocol in the MR contrast administration guidelines link (Patient not taking: Reported on 11/03/2022) 1 Each 0 iv contrast (will be provided with radiology test) MRA Brain Inject, intravenously, once for 1 dose. No IV access, insert saline lock prior to the beginning of sedation, infusion, injection of imaging exam. Discontinue saline lock post exam. If Pt. has a central line or IVAD, may access for administration according to line specific nursing protocol. Once exam is complete flush line and de-access according to line specific nursing protocol in the MR contrast administration guidelines link. (Patient not taking: Reported on 11/03/2022) 1 Each 0 aspirin 81 mg chewable tablet Take 1 tablet by mouth once daily. 90 tablet 0 acetaminophen (TYLENOL) 325 mg tablet Take 2 tablets by mouth every 6 hours. 0 No current facility-administered medications for this visit. DATA: CBC: No results for input(s): WBC, RBC, HB, HCT, PLT, MCV, MCH, MPV, RDW in the last 24 hours. CMP:No results for input(s): NA, K, CHLOR, CO2, BUN, CREAT, GLUC, TPROT, CA, MG, ALBUMIN, TBILI, ALKPHOS, ALT, AST, ANION in the last 24 hours. No results found for this basename: psa Cholesterol, Total (mg/dL) Date Value 07/12/2023 139 10/14/2020 147 HDL Cholesterol (mg/dL) Date Value 07/12/2023 60 10/14/2020 38 LDL Cholesterol (mg/dL) Date Value 07/12/2023 62 10/14/2020 90 Triglyceride (mg/dL) Date Value 07/12/2023 84 10/14/2020 96 Hemoglobin A1C (%) Date Value 10/14/2020 5.5 02/19/2019 5.5 11/10/2017 5.3 11/09/2017 5.2 11/08/2017 5.3 BP 118/60 Pulse 65 LMP 02/23/2022 (Approximate) SpO2 98% PHYSICAL EXAMINATION: General appearance: Well appearing, alert, in no acute distress, well-hydrated, well nourished. Skin: Skin color, texture, turgor normal, no suspicious rashes or lesions Head: Normocephalic, no masses, lesions, tenderness or abnormalities Eyes: Anicteric sclera. Pupils are equally round and reactive to light. Extraocular movements are intact. Ears: External ears normal, canals clear Nose/Sinuses: Nares normal, septum midline, mucosa normal, no drainage or sinus tenderness Oropharynx: Lips, mucosa, and tongue normal, teeth and gums normal, oropharynx normal Neck: Supple, no adenopathy; thyroid symmetric, normal size, no bruits Back: Normal exam Lungs: Lungs clear to auscultation. No wheezing, rhonchi, rales Heart: RRR without murmur, gallop, or rubs. No ectopy Abdomen: Normal abdominal exam, Abdomen soft, non-tender. Bowel sounds normal. No masses, organomegaly Extremities: No deformities, edema, skin discoloration, clubbing or cyanosis. Good capillary refill. Musculoskeletal: No joint swelling, deformity, or tenderness Peripheral pulses: Normal Neuro: No focal deficit/at baseline Feet: Pulses positive No sensory deficit Consultants notes reviewed Most recent CT/CXR reviewed Last EKG reviewed ASSESSMENT/PLAN: 1. Essential hypertension - ICD9: 401.9, ICD10: I10 (primary diagnosis) - Controlled - Recommend home blood pressure monitoring, to bring results to next visit - Encouraged sodium restriction, DASH or Mediterranean diet - Recommend regular aerobic exercise 2. Borderline personality disorder (HCC) - ICD9: 301.83, ICD10: F60.3 Stable 3. Dietary counseling - ICD9: V65.3, ICD10: Z71.3 The patient is asked to make an attempt to improve diet and exercise patterns to aid in medical management of this problem. 4. Encounter for screening mammogram for malignant neoplasm of breast - ICD9: V76.12, ICD10: Z12.31 Referred to mammogram Felecia Ely MD documented in this encounter [facility] 07-29-2023 History of Present illness Narrative Nida Francis engaged in a telehealth session via PHONE with this provider practicing within the [facility]. The identity of Nida was verified by their date of , (1980), and last four digits of their social security number, ([id number]). The provider demonstrated that confidentially was preserved at their location. Nida was informed that they were responsible for ensuring confidentially was secured at their location. Nida's location was documented for emergency purposes. Nida was informed of the necessary steps that would occur if an emergency was to occur or technology failed during session. COUNSELING PROGRESS NOTE Nida Francis is a 42 year old female here today for Individual Counseling PC completed an emotional check-in. Client stated, Guera has made some choices for me, I guess we are done. PC helped client to explore cognitions surrounding the break up. PC helped client to explore cognitive distortions and all or nothing thinking related to the break up. PC helped client to understand her ex's behavior, cycles of behavior and how to respond when her attempts to reconcile. PC helped client to process client's growth within the relationship. PC helped client to explore visualization interventions to assist with denial and responding to her 's behaviors if she attempts to reconcile. SUBJECTIVE: Client appeared sad or depressed and nervous or anxious. Evaluated Safety and risk: N/A. OBJECTIVE: Assessment of Mood: anxiety and depressed mood Discussed client's use of CBT. Goal from ISSP addressed during this session: Increase ability to manage anxiety and restore daily life roles and activities ASSESSMENT: Diagnosis: F43.20,Z63.4 Bereavement reaction (primary encounter diagnosis) F41.9 Anxiety Engaged client in learning Review of Thinking Errors and Cognitive Challenges, Emotional Regulation, and Self-Compassion Progress toward goal: Moderate Improvement PLAN: Assigned homework/practice of the following: Self-Compassion and visualization interventions, replacing negative and all or nothing thinking with positive affirmations . Continue psychotherapy Current Service Plan Service Plan Mental Health To provide counseling to minimize symptoms of depression and anxiety Client's symptoms will decrease by 10% over the next 6 month indicated by the PHQ-9 and PETE-7 results Current Care Plan Care Plan: Counseling Care Plan Updates made by Ramses Allen LPC since 07/29/2022 12:00 AM Problem: Anxiety Long-Range Goal: Increase ability to manage anxiety and restore daily life roles and activities Start Date: 11/12/2022 Expected End Date: 11/13/2023 This Visit's Progress: On track Priority: High Task: Assist the client in identifying at least three situations and patterns of thought which precede/maintain anxiety symptoms so the client may respond more adaptively to those situations and thoughts Due Date: 11/13/2023 Priority: High Outcome: Positive Responsible User: Ramses Allen LPC Note: PC will utilize various therapeutic modalities and interventions including CBT and DBT. Goal: Explore and process 2-3 underlying reasons for anxious moods over the next 6 months Start Date: 11/12/2022 Expected End Date: 11/13/2023 This Visit's Progress: On track Priority: High Note: Progress noted through PETE-7 scores. Screening to be completed every 6 months during the service plan review. Goal: Identify, challenge and replace biased, fearful self-talk with reality-based, positive self-talk Start Date: 11/12/2022 Expected End Date: 11/13/2023 This Visit's Progress: On track Priority: High Note: Client will identify negative self talk and beliefs and replace with positive affirmations 1x during each counseling session. Problem: Depression Long-Range Goal: Alleviate depression and restore daily life roles and activities Start Date: 11/12/2022 Expected End Date: 11/13/2023 This Visit's Progress: On track Priority: High Task: Clinician will teach client in the use of behavioral skills training methods such as instruction, modeling, rehearsal, to develop skills and practice, review, and corrective feedback for refining and consolidating use Due Date: 11/13/2023 Priority: High Outcome: Positive Responsible User: Ramses Allen LPC Note: PC will use behavioral activation strategies, DBT and CBT. Goal: Explore and practice at least three evidence-based relaxation activities that reduce depression over the next 6 months Start Date: 11/12/2022 Expected End Date: 12/14/2023 This Visit's Progress: On track Priority: Medium Note: Progress to be monitored through PHQ-9 screenings administered every 6 months during the care plan review. Next appointment: Scheduled next appointment for 08/17/23 at Other: telehealth . documented in this encounter [facility] [employer] Work Phone: 07-19-2023 History of Present illness Narrative Nida Francis engaged in a telehealth session via PHONE with this provider practicing within the [facility]. The identity of Nida was verified by their date of , (1980), and last four digits of their social security number, ([id number]). The provider demonstrated that confidentially was preserved at their location. Nida was informed that they were responsible for ensuring confidentially was secured at their location. Nida's location was documented for emergency purposes. Nida was informed of the necessary steps that would occur if an emergency was to occur or technology failed during session. COUNSELING PROGRESS NOTE Nida Francis is a 42 year old female here today for Individual Counseling/Couples Counseling. Assessed changes since last session and monitored current stressors. Monitored mental health symptoms status. Reviewed progress since last session. Provided active and reflective listening and supportive and solution-focused feedback. Assisted CL and RI in processing steps to take in future to establish living together again. Expressed concern about RI refusing to let go of past resentments or reconnect with CL's adult child forcing CL to choose between them. Discussed with CL and RI how both need to commit to making changes, focusing on the future and identifying amends that need to be made so they continue together in the future. Agreed to Disc counseling at this time to provide space for both to decide if they wish to continue couples therapy. CL reported heart problems were R/O by specialist. CL reported she and RI have been sick for two weeks w/o focusing on homework or spending time together. CL and RI began discussing small steps to take to plan moving in together again. RI stated she is not comfortable with interacting with CL's adult child. After much discussing, CL stated, I think you're done' and RI agreed. CL and RI agreed to disc couples counseling at this time and will work with their individual counselors. SUBJECTIVE: Client appeared neutral or euthymic. Evaluated Safety and risk: N/A. OBJECTIVE: Assessment of Mood: anxiety, depressed mood, and frustrations. Discussed client's use of CBT, Solution Focused Therapy, and Couples Counseling . Goal from ISSP addressed during this session: improve functioning and more effectively manage symptoms of anxiety, anger and depression. ASSESSMENT: Diagnosis: F43.20,Z63.4 Bereavement reaction (primary encounter diagnosis) F41.9 Anxiety Engaged client in learning/reviewing Behavioral Analysis, Review of Thinking Errors and Cognitive Challenges, Emotional Regulation, Effective Communication, and Self-Care, Bibliotherapy, Couples Counseling. Progress toward goal: Minimal Improvement PLAN: Assigned homework/practice of the following: Behavioral Analysis, Review of Thinking Errors and Cognitive Challenges, Emotional Regulation, Effective Communication, and Self-Care, Bibliotherapy, Couples Counseling. CL and RI will use Growing Up Again to identify their parenting styles and work towards providing their teen with health, age appropriate rules of behavior. CL and RI will use Dance of Anger, Dance of Connection, Feel the Fear and Do It Anyway, and How To Make Love All the Time and free dayanara Insight Timer for meditations to address their PTSD, anger, anxiety and depression symptoms. CL and RI will continue working with individual counselors. CL and RI will contact this clinician if they want to continue counseling. Continue psychotherapy Current Service Plan Service Plan Mental Health To provide counseling to minimize symptoms of depression and anxiety Client's symptoms will decrease by 10% over the next 6 month indicated by the PHQ-9 and PETE-7 results Current Care Plan There are no care plans that you recently modified to display for this patient. Next appointment: No [facility] documented in this encounter [facility] [employer] Work Phone: 07-19-2023 History of Present illness Narrative Nida Francis 1980 42 year old female [id number] July 19, 2023 HPI patient is following up the patient had dizziness which has improved significantly she was referred to MRI which did not show any acute infarct however showed that she had old infarcts chronic the patient symptoms has improved she has history of hypertension has no visual changes no dizziness no headache at this point the patient had a lab work which showed that she has hypokalemia she had a persistent intermittent nausea and vomiting but no significant abdominal pain no diarrhea at this point the patient also is due for vaccination with a COVID-19 booster and due for a mammogram. Patient seen and examined time spent 45 minutes. 25 minutes in counseling plan of care was discussed with the patient PAST MEDICAL HISTORY Diagnosis Date Asthma History of vasculitis Pneumonia Psychiatric disorder anxiety, bi-polar Restless leg syndrome Stroke (HCC) 11/2015 Social History Tobacco Use Smoking status: Every Day Packs/day: 1.00 Years: 13.00 Additional pack years: 0.00 Total pack years: 13.00 Types: Cigarettes Smokeless tobacco: Never Vaping Use Vaping Use: Never used Substance Use Topics Alcohol use: No Drug use: Yes Types: Marijuana Comment: weekly FAMILY HISTORY Problem Relation Age of Onset Hypertension Mother Depression Mother Hypertension Father Depression Father other (crohns) Maternal Grandmother Cancer Paternal Grandfather Breast Cancer Other 50 PAST SURGICAL HISTORY Procedure Laterality Date DENTAL SURGERY HX wisdom teeth LAPAROSCOPY SURG CHOLECYSTECTOMY 08/24/2017 MIDLINE INSERTION/CONSULT 08/21/2016 ORTHOPEDICS SURGERY HX right foot PICC LINE INSERT/CONSULT 12/19/2015 R.O.S negative other than HPI & PMH all other SYS reviewed and negative. Current Outpatient Medications Medication Sig Dispense Refill potassium chloride ER (KLOR-CON M20) 20 mEq tablet Take 1 tablet by mouth once daily for 3 days. 3 tablet 0 ondansetron orally disintegrating (ZOFRAN ODT) 4 mg disintegrating tablet Take 1 tablet by mouth every 6 hours as needed for nausea/vomiting. 8 tablet 0 atorvastatin (LIPITOR) 80 mg tablet TAKE 1 TABLET BY MOUTH ONCE DAILY 90 tablet 0 QUEtiapine (SEROQUEL) 25 mg tablet Take 1 tablet by mouth two times a day. 60 tablet 0 QUEtiapine (SEROQUEL) 50 mg tablet Take 1 tablet by mouth daily at bedtime. 30 tablet 0 mycophenolate Mofetil (CELLCEPT) 500 mg tablet TAKE 2 TABLETS BY MOUTH TWICE DAILY 120 tablet 10 iv contrast (will be provided with radiology test) MRI Brain Inject, intravenously, once for 1 dose.No IV access, insert saline lock prior to beginning of sedation, infusion, injection of imaging exam.Discontinue saline lock post exam. If Pt. has a central line or IVAD, may access for administration according to line specific nursing protocol.Once exam is complete flush line and de-access according to line specific nursing protocol in the MR contrast administration guidelines link 1 Each 0 iv contrast (will be provided with radiology test) MRA Brain Inject, intravenously, once for 1 dose. No IV access, insert saline lock prior to the beginning of sedation, infusion, injection of imaging exam. Discontinue saline lock post exam. If Pt. has a central line or IVAD, may access for administration according to line specific nursing protocol. Once exam is complete flush line and de-access according to line specific nursing protocol in the MR contrast administration guidelines link. 1 Each 0 lamoTRIgine (LAMICTAL) 150 mg tablet TAKE 1 TABLET BY MOUTH TWICE DAILY 60 tablet 10 metoprolol succinate ER (TOPROL XL) 50 mg 24 hr tablet TAKE 1 TABLET BY MOUTH ONCE DAILY 30 tablet 10 rOPINIRole (REQUIP) 0.25 mg tablet TAKE 1 TABLET BY MOUTH NIGHTLY AT BEDTIME 30 tablet 10 albuterol HFA (PROVENTIL HFA, VENTOLIN HFA) 90 mcg/actuation inhaler INHALE TWO (2) PUFFS EVERY 4 HOURS NEEDED FOR WHEEZING OR SHORTNESS OF BREATH 8.5 g 10 gabapentin (NEURONTIN) 100 mg capsule Take 2 capsules by mouth three times daily for 28 days. 180 capsule 10 ergocalciferol 50,000 unit capsule (VITAMIN D2, DRISDOL) TAKE 1 CAPSULE BY MOUTH ONCE WEEKLY *EMERGENCY REFILL* 4 capsule 10 amLODIPine (NORVASC) 5 mg tablet Take 1 tablet by mouth once daily. [address] (PROTONIX) 40 mg tablet TAKE ONE (1) TABLET BY MOUTH TWICE DAILY 60 tablet 10 iv contrast (will be provided with radiology test) MRA Brain Inject, intravenously, once for 1 dose. No IV access, insert saline lock prior to the beginning of sedation, infusion, injection of imaging exam. Discontinue saline lock post exam. If Pt. has a central line or IVAD, may access for administration according to line specific nursing protocol. Once exam is complete flush line and de-access according to line specific nursing protocol in the MR contrast administration guidelines link. (Patient not taking: Reported on 11/03/2022) 1 Each 0 iv contrast (will be provided with radiology test) MRI Brain Inject, intravenously, once for 1 dose.No IV access, insert saline lock prior to beginning of sedation, infusion, injection of imaging exam.Discontinue saline lock post exam. If Pt. has a central line or IVAD, may access for administration according to line specific nursing protocol.Once exam is complete flush line and de-access according to line specific nursing protocol in the MR contrast administration guidelines link (Patient not taking: Reported on 11/03/2022) 1 Each 0 iv contrast (will be provided with radiology test) MRI Brain Inject, intravenously, once for 1 dose.No IV access, insert saline lock prior to beginning of sedation, infusion, injection of imaging exam.Discontinue saline lock post exam. If Pt. has a central line or IVAD, may access for administration according to line specific nursing protocol.Once exam is complete flush line and de-access according to line specific nursing protocol in the MR contrast administration guidelines link (Patient not taking: Reported on 11/03/2022) 1 Each 0 iv contrast (will be provided with radiology test) MRA Brain Inject, intravenously, once for 1 dose. No IV access, insert saline lock prior to the beginning of sedation, infusion, injection of imaging exam. Discontinue saline lock post exam. If Pt. has a central line or IVAD, may access for administration according to line specific nursing protocol. Once exam is complete flush line and de-access according to line specific nursing protocol in the MR contrast administration guidelines link. (Patient not taking: Reported on 11/03/2022) 1 Each 0 aspirin 81 mg chewable tablet Take 1 tablet by mouth once daily. 90 tablet 0 acetaminophen (TYLENOL) 325 mg tablet Take 2 tablets by mouth every 6 hours. 0 No current facility-administered medications for this visit. DATA: CBC: No results for input(s): WBC, RBC, HB, HCT, PLT, MCV, MCH, MPV, RDW in the last 24 hours. CMP:No results for input(s): NA, K, CHLOR, CO2, BUN, CREAT, GLUC, TPROT, CA, MG, ALBUMIN, TBILI, ALKPHOS, ALT, AST, ANION in the last 24 hours. No results found for this basename: psa Cholesterol, Total (mg/dL) Date Value 07/12/2023 139 10/14/2020 147 HDL Cholesterol (mg/dL) Date Value 07/12/2023 60 10/14/2020 38 LDL Cholesterol (mg/dL) Date Value 07/12/2023 62 10/14/2020 90 Triglyceride (mg/dL) Date Value 07/12/2023 84 10/14/2020 96 Hemoglobin A1C (%) Date Value 10/14/2020 5.5 02/19/2019 5.5 11/10/2017 5.3 11/09/2017 5.2 11/08/2017 5.3 BP 124/68 Pulse 93 LMP 02/23/2022 (Approximate) SpO2 99% PHYSICAL EXAMINATION: General appearance: Well appearing, alert, in no acute distress, well-hydrated, well nourished. Skin: Skin color, texture, turgor normal, no suspicious rashes or lesions Head: Normocephalic, no masses, lesions, tenderness or abnormalities Eyes: Anicteric sclera. Pupils are equally round and reactive to light. Extraocular movements are intact. Ears: External ears normal, canals clear Nose/Sinuses: Nares normal, septum midline, mucosa normal, no drainage or sinus tenderness Oropharynx: Lips, mucosa, and tongue normal, teeth and gums normal, oropharynx normal Neck: Supple, no adenopathy; thyroid symmetric, normal size, no bruits Back: Normal exam Lungs: Lungs clear to auscultation. No wheezing, rhonchi, rales Heart: RRR without murmur, gallop, or rubs. No ectopy Abdomen: Normal abdominal exam, Abdomen soft, non-tender. Bowel sounds normal. No masses, organomegaly Extremities: No deformities, edema, skin discoloration, clubbing or cyanosis. Good capillary refill. Musculoskeletal: No joint swelling, deformity, or tenderness Peripheral pulses: Normal Neuro: No focal deficit/at baseline Feet: Pulses positive No sensory deficit Consultants notes reviewed Most recent CT/CXR reviewed Last EKG reviewed ASSESSMENT/PLAN: 1. Dizziness - ICD9: 780.4, ICD10: R42 (primary diagnosis) As above currently has no focal neurodeficits status post MRI finding has been reviewed and discussed with the patient she had old chronic infarct I have strongly recommended that the patient follow-up with the neurologist currently does not have symptoms . 2. Essential hypertension - ICD9: 401.9, ICD10: I10 - Controlled - Recommend home blood pressure monitoring, to bring results to next visit - Encouraged sodium restriction, DASH or Mediterranean diet - Recommend regular aerobic exercise 3. Dietary counseling - ICD9: V65.3, ICD10: Z71.3 The patient is asked to make an attempt to improve diet and exercise patterns to aid in medical management of this problem. 4. Hypokalemia - ICD9: 276.8, ICD10: E87.6 Likely related to nausea and vomiting the patient placed on K-Dur 20 milliequivalents p.o. daily for 3 days need to treat underlying causes 5. Encounter for screening mammogram for malignant neoplasm of breast - ICD9: V76.12, ICD10: Z12.31 Breast CA list complications discussed with the patient. Difficulty in treatment in advanced cases with the risk of METS has been discussed. Recommend yearly mammogram and monthly self-exam and to call if any lumps felt. Patient agreed; Referral given 6. Need for vaccination - ICD9: V05.9, ICD10: Z23 Need for vaccination Patient was advised with vaccination Risk and complication has been explained to the patient including life-threatening Concerning the side effects of the vaccination has been explained to the patient Risk versus benefit has been explained at length Advised with COVID-19 vaccination 7. Nausea and vomiting, unspecified vomiting type - ICD9: 787.01, ICD10: R11.2 Discussed with the patient differential diagnosis the patient is status postcholecystectomy further workup has been discussed with the patient including gastric emptying study discussed with the patient as well GI consultation referred to for upper endoscopy Felecia Ely MD documented in this encounter [facility] 07-19-2023 Miscellaneous Notes Patient phones requesting refills as follows: Requested Prescriptions Pending Prescriptions Disp Refills potassium chloride ER (KLOR-CON M20) 20 mEq tablet 3 tablet 0 Sig: Take 1 tablet by mouth once daily for 3 days. Please review and advise. Jeannette Diaz MA documented in this encounter [facility] 07-15-2023 History of Present illness Narrative Nida Francis engaged in a telehealth session via PHONE with this provider practicing within the [facility]. The identity of Nida was verified by their date of , (1980), and last four digits of their social security number, ([id number]). The provider demonstrated that confidentially was preserved at their location. Nida was informed that they were responsible for ensuring confidentially was secured at their location. Nida's location was documented for emergency purposes. Nida was informed of the necessary steps that would occur if an emergency was to occur or technology failed during session. COUNSELING PROGRESS NOTE Nida Francis is a 42 year old female here today for Individual Counseling.PC completed an emotional check-in. PC and client discussed and explored childhood experiences affecting client currently. PC helped client to explore ways to increase family connections as client identified an increase in a positive mood and feeling support when with family members.. PC assisted client to problem solve ways to increase family social engagements. PC and client explored ways to prioritize social interactions and self care. PC educated client on behavioral strategies to assist with decreasing anxiety. PC helped to explore the pros and cons of of changing employment and the effect on mental health symptoms. PC assisted client to explore things she cannot control such as her 's behavior and the 's outlook in life. PC assisted client to explore client's strenghts. PC assisted client to explore her increased sickness as a subconcious means to bring her parner back and return to a better time in the marriage. Client states, You're not wrong, I think there is some of that going on; but it's not working. Whenever I become sick, she won't talk to me and I don't hear from her for days. SUBJECTIVE: Client appeared neutral or euthymic, sad or depressed, and nervous or anxious. Evaluated Safety and risk: N/A. OBJECTIVE: Assessment of Mood: anxiety and depressed mood Discussed client's use of CBT. Goal from ISSP addressed during this session: Increase ability to manage anxiety and restore daily life roles and activities ASSESSMENT: Diagnosis: Bipolar II disorder, Panic disorder, PTSD Engaged client in learning Review of Thinking Errors and Cognitive Challenges and Emotional Regulation Progress toward goal: Moderate Improvement , some deterioration PLAN: Assigned homework/practice of the following: Review of Thinking Errors and Cognitive Challenges, Self-Compassion, and Mindfulness. Continue psychotherapy Current Service Plan Service Plan Mental Health To provide counseling to minimize symptoms of depression and anxiety Client's symptoms will decrease by 10% over the next 6 month indicated by the PHQ-9 and PETE-7 results Current Care Plan Care Plan: Counseling Care Plan Updates made by Ramses Allen LPC since 07/15/2022 12:00 AM Problem: Anxiety Long-Range Goal: Increase ability to manage anxiety and restore daily life roles and activities Start Date: 11/12/2022 Expected End Date: 11/13/2023 This Visit's Progress: On track Priority: High Task: Assist the client in identifying at least three situations and patterns of thought which precede/maintain anxiety symptoms so the client may respond more adaptively to those situations and thoughts Due Date: 11/13/2023 Priority: High Outcome: Positive Responsible User: Ramses Allen LPC Note: PC will utilize various therapeutic modalities and interventions including CBT and DBT. Goal: Explore and process 2-3 underlying reasons for anxious moods over the next 6 months Start Date: 11/12/2022 Expected End Date: 11/13/2023 This Visit's Progress: On track Priority: High Note: Progress noted through PETE-7 scores. Screening to be completed every 6 months during the service plan review. Goal: Identify, challenge and replace biased, fearful self-talk with reality-based, positive self-talk Start Date: 11/12/2022 Expected End Date: 11/13/2023 This Visit's Progress: On track Priority: High Note: Client will identify negative self talk and beliefs and replace with positive affirmations 1x during each counseling session. Problem: Depression Long-Range Goal: Alleviate depression and restore daily life roles and activities Start Date: 11/12/2022 Expected End Date: 11/13/2023 This Visit's Progress: On track Priority: High Task: Clinician will teach client in the use of behavioral skills training methods such as instruction, modeling, rehearsal, to develop skills and practice, review, and corrective feedback for refining and consolidating use Due Date: 11/13/2023 Priority: High Outcome: Positive Responsible User: Ramses Allen LPC Note: PC will use behavioral activation strategies, DBT and CBT. Goal: Explore and practice at least three evidence-based relaxation activities that reduce depression over the next 6 months Start Date: 11/12/2022 Expected End Date: 12/14/2023 This Visit's Progress: On track Priority: Medium Note: Progress to be monitored through PHQ-9 screenings administered every 6 months during the care plan review. Next appointment: Scheduled next appointment for 07/29/23 at Other: telehealth . documented in this encounter [facility] Work Phone: 07-14-2023 Miscellaneous Notes Radiology Service Progress Note PATIENT NAME: Nida Francis DATE OF SERVICE: July 14, 2023 TIME: 8:05 AM PATIENT IDENTITY VERIFICATION COMPLETED USING TWO (2) IDENTIFIERS: Name and Date of confirmed by patient verbally. FALL SCREENING: Has the patient had 2 falls in the last year or 1 fall with injury or currently using an Ambulatory Assistive Device (Walker, Cane, Wheelchair, Crutches, etc.)? No PATIENT GENDER DATA: Female. status: : No status: NO. PATIENT RELEVANT IMPLANT DATA REVIEWED: Yes PATIENT PRESENTS WITH AN IMPLANTABLE OR ATTACHED THREAD GRINDER: No RADIOLOGY DEPARTMENT: MR; Exam(s) Completed: Head: Routine Brain PERIPHERAL IV DATA: Not applicable SIGNED BY: Sadie Aden shoe repair supervisor July 14, 2023 8:05 AM documented in this encounter [facility] 07-07-2023 History of Present illness Narrative Nida Francis engaged in a telehealth session via PHONE with this provider practicing within the [facility]. The identity of Nida was verified by their date of , (1980), and last four digits of their social security number, ([id number]). The provider demonstrated that confidentially was preserved at their location. Nida was informed that they were responsible for ensuring confidentially was secured at their location. Nida's location was documented for emergency purposes. Nida was informed of the necessary steps that would occur if an emergency was to occur or technology failed during session. COUNSELING PROGRESS NOTE Nida Francis is a 42 year old female here today for Individual Counseling. CL reported forgetting about today's session and her RI has disappeared again. Assisted CL in processing her RI's pattern of disappearing for 2-3 x in the past. Assessed changes since last session and monitored current stressors. Monitored mental health symptoms status. Reviewed progress since last session. Provided active and reflective listening and supportive and solution-focused feedback. Validated CL's concerns about CL reported she is struggling again. CL stated in pain from shattered tooth and can't get into seeing a dentist. CL reported 2 hospital Ed visits trying to get mu potasium up. CL discounted abusing marijuana. CL responded favorably to reading Dance of Connection and stated feeling exhausted trying to validate her RI, I don't remember the past. SUBJECTIVE: Client appeared neutral or euthymic and sad or depressed. Evaluated Safety and risk: N/A. OBJECTIVE: Assessment of Mood: anxiety, depressed mood, somatic symptoms, and frustrated. Discussed client's use of CBT, Solution Focused Therapy, and Couples Therapy, Bibliotherapy . Goal from ISSP addressed during this session: improve functioning and more effectively manage symptoms of anxiety, anger and depression. ASSESSMENT: Diagnosis: F43.20,Z63.4 Bereavement reaction (primary encounter diagnosis) F41.9 Anxiety Engaged client in learning/reviewing Behavioral Analysis, Review of Thinking Errors and Cognitive Challenges, Effective Communication, and Couples Therapy, Bibliotherapy. Progress toward goal: Minimal Improvement PLAN: Assigned homework/practice of the following: Behavioral Analysis, Review of Thinking Errors and Cognitive Challenges, Effective Communication, and Couples Therapy, Bibliotherapy. CL and RI will use Growing Up Again to identify their parenting styles and work towards providing their teen with health, age appropriate rules of behavior. CL and RI will use Dance of Anger, Dance of Connection, Feel the Fear and Do It Anyway, and How To Make Love All the Time and free dayanara Insight Timer for meditations to address their PTSD, anger, anxiety and depression symptoms. CL and RI will practice intuitive couples exercise to connect w/o speech. Continue psychotherapy Current Service Plan Service Plan Mental Health To provide counseling to minimize symptoms of depression and anxiety Client's symptoms will decrease by 10% over the next 6 month indicated by the PHQ-9 and PETE-7 results Current Care Plan There are no care plans that you recently modified to display for this patient. Next appointment: Scheduled next appointment for 07-12-23 @ 6:45 PM at Office:[facility]. documented in this encounter [facility] [employer] Work Phone: 07-01-2023 History of Present illness Narrative Nida Francis engaged in a telehealth session via PHONE with this provider practicing within the [facility]. The identity of Nida was verified by their date of , (1980), and last four digits of their social security number, ([id number]). The provider demonstrated that confidentially was preserved at their location. Nida was informed that they were responsible for ensuring confidentially was secured at their location. Nida's location was documented for emergency purposes. Nida was informed of the necessary steps that would occur if an emergency was to occur or technology failed during session. COUNSELING PROGRESS NOTE Nida Francis is a 42 year old female here today for Individual Counseling. PC completed an emotional check-in. Client states she is stressed and had been in the ED due to passing out at work. PC helped client to explore behaviors that client reinforced to maintain a conflicted relationship. PC assisted client to explore patterns of behavior and encouraged client to discuss ongoing, consistent patterns of behavior when in couples counseling. PC helped client to explore flight,fright and freeze responses and fears of confronting her partner. PC educated client on different states of minds and ability to process information when emotionally heightened. PC modeled ways to confront her 's behaviors., using effective communications strategies. PC assisted client to explore ways to set limits and boundaries on client's . PC helped client to explore concerns around moving; discussed pros and con's of moving. PC helped client to explore concerns of moving into housing with her estranged . Client states she plans to move with her child and her child's significant other. PC supported client to focus on how the stress of her relationship is negatively impacting client's physical health. SUBJECTIVE: Client appeared sad or depressed and nervous or anxious. Evaluated Safety and risk: N/A. OBJECTIVE: Assessment of Mood: anxiety Discussed client's use of CBT. Goal from ISSP addressed during this session: Increase ability to manage anxiety and restore daily life roles and activities Alleviate depression and restore daily life roles and activities ASSESSMENT: Diagnosis: F43.20,Z63.4 Bereavement reaction (primary encounter diagnosis) F41.9 Anxiety Engaged client in learning Emotional Regulation Progress toward goal: Moderate Improvement PLAN: Assigned homework/practice of the following: Emotional Regulation. Continue psychotherapy Current Service Plan Service Plan Mental Health To provide counseling to minimize symptoms of depression and anxiety Client's symptoms will decrease by 10% over the next 6 month indicated by the PHQ-9 and PETE-7 results Current Care Plan Care Plan: Counseling Care Plan Updates made by Ramses Allen LPC since 07/01/2022 12:00 AM Problem: Anxiety Long-Range Goal: Increase ability to manage anxiety and restore daily life roles and activities Start Date: 11/12/2022 Expected End Date: 11/13/2023 This Visit's Progress: On track Priority: High Task: Assist the client in identifying at least three situations and patterns of thought which precede/maintain anxiety symptoms so the client may respond more adaptively to those situations and thoughts Due Date: 11/13/2023 Priority: High Outcome: Positive Responsible User: Ramses Allen LPC Note: PC will utilize various therapeutic modalities and interventions including CBT and DBT. Goal: Explore and process 2-3 underlying reasons for anxious moods over the next 6 months Start Date: 11/12/2022 Expected End Date: 11/13/2023 This Visit's Progress: On track Priority: High Note: Progress noted through PETE-7 scores. Screening to be completed every 6 months during the service plan review. Goal: Identify, challenge and replace biased, fearful self-talk with reality-based, positive self-talk Start Date: 11/12/2022 Expected End Date: 11/13/2023 This Visit's Progress: On track Priority: High Note: Client will identify negative self talk and beliefs and replace with positive affirmations 1x during each counseling session. Problem: Depression Long-Range Goal: Alleviate depression and restore daily life roles and activities Start Date: 11/12/2022 Expected End Date: 11/13/2023 This Visit's Progress: On track Priority: High Task: Clinician will teach client in the use of behavioral skills training methods such as instruction, modeling, rehearsal, to develop skills and practice, review, and corrective feedback for refining and consolidating use Due Date: 11/13/2023 Priority: High Outcome: Positive Responsible User: Ramses Allen LPC Note: PC will use behavioral activation strategies, DBT and CBT. Goal: Explore and practice at least three evidence-based relaxation activities that reduce depression over the next 6 months Start Date: 11/12/2022 Expected End Date: 12/14/2023 This Visit's Progress: On track Priority: Medium Note: Progress to be monitored through PHQ-9 screenings administered every 6 months during the care plan review. Next appointment: Scheduled next appointment for 07/15/23 at Other: telehealth . documented in this encounter [facility] [employer] Work Phone: 06-28-2023 History of Present illness Narrative Nida Francis 1980 42 year old female [id number] June 28, 2023 HPI patient is here she is complaining of episode of syncope with the dizziness and ataxia patient was unable to keep her balance and she had an episode where she passed out at work the patient stated that she went to [facility] where she had a workup and they told her that she had a new stroke however she did not want to stay in the hospital the patient is complaining that she had episode of nausea she has been feeling anxious she currently denies chest pain shortness of breath abdominal pain headache numbness tingling or focal weakness the patient also currently denies any dizziness or ataxia she has an extensive past medical history she has been recently diagnosed with acute renal failure she was supposed to follow-up however she did not she has history of asthma anxiety bipolar disorder restless leg syndrome obesity. Patient seen and examined time spent 45 minutes. 25 minutes in counseling plan of care was discussed with the patient PAST MEDICAL HISTORY Diagnosis Date Asthma History of vasculitis Pneumonia Psychiatric disorder anxiety, bi-polar Restless leg syndrome Stroke (HCC) 11/2015 Social History Tobacco Use Smoking status: Every Day Packs/day: 1.00 Years: 13.00 Additional pack years: 0.00 Total pack years: 13.00 Types: Cigarettes Smokeless tobacco: Never Vaping Use Vaping Use: Never used Substance Use Topics Alcohol use: No Drug use: Yes Types: Marijuana Comment: weekly FAMILY HISTORY Problem Relation Age of Onset Hypertension Mother Depression Mother Hypertension Father Depression Father other (crohns) Maternal Grandmother Cancer Paternal Grandfather Breast Cancer Other 50 PAST SURGICAL HISTORY Procedure Laterality Date DENTAL SURGERY HX wisdom teeth LAPAROSCOPY SURG CHOLECYSTECTOMY 08/24/2017 MIDLINE INSERTION/CONSULT 08/21/2016 ORTHOPEDICS SURGERY HX right foot PICC LINE INSERT/CONSULT 12/19/2015 R.O.S negative other than HPI & PMH all other SYS reviewed and negative. Current Outpatient Medications Medication Sig Dispense Refill atorvastatin (LIPITOR) 80 mg tablet TAKE 1 TABLET BY MOUTH ONCE DAILY 90 tablet 0 QUEtiapine (SEROQUEL) 25 mg tablet Take 1 tablet by mouth two times a day. 60 tablet 0 QUEtiapine (SEROQUEL) 50 mg tablet Take 1 tablet by mouth daily at bedtime. 30 tablet 0 mycophenolate Mofetil (CELLCEPT) 500 mg tablet TAKE 2 TABLETS BY MOUTH TWICE DAILY 120 tablet 10 iv contrast (will be provided with radiology test) MRI Brain Inject, intravenously, once for 1 dose.No IV access, insert saline lock prior to beginning of sedation, infusion, injection of imaging exam.Discontinue saline lock post exam. If Pt. has a central line or IVAD, may access for administration according to line specific nursing protocol.Once exam is complete flush line and de-access according to line specific nursing protocol in the MR contrast administration guidelines link 1 Each 0 iv contrast (will be provided with radiology test) MRA Brain Inject, intravenously, once for 1 dose. No IV access, insert saline lock prior to the beginning of sedation, infusion, injection of imaging exam. Discontinue saline lock post exam. If Pt. has a central line or IVAD, may access for administration according to line specific nursing protocol. Once exam is complete flush line and de-access according to line specific nursing protocol in the MR contrast administration guidelines link. 1 Each 0 lamoTRIgine (LAMICTAL) 150 mg tablet TAKE 1 TABLET BY MOUTH TWICE DAILY 60 tablet 10 metoprolol succinate ER (TOPROL XL) 50 mg 24 hr tablet TAKE 1 TABLET BY MOUTH ONCE DAILY 30 tablet 10 rOPINIRole (REQUIP) 0.25 mg tablet TAKE 1 TABLET BY MOUTH NIGHTLY AT BEDTIME 30 tablet 10 albuterol HFA (PROVENTIL HFA, VENTOLIN HFA) 90 mcg/actuation inhaler INHALE TWO (2) PUFFS EVERY 4 HOURS NEEDED FOR WHEEZING OR SHORTNESS OF BREATH 8.5 g 10 ondansetron orally disintegrating (ZOFRAN ODT) 4 mg disintegrating tablet Take 1 tablet by mouth every 6 hours as needed. 15 tablet 0 gabapentin (NEURONTIN) 100 mg capsule Take 2 capsules by mouth three times daily for 28 days. 180 capsule 10 ergocalciferol 50,000 unit capsule (VITAMIN D2, DRISDOL) TAKE 1 CAPSULE BY MOUTH ONCE WEEKLY *EMERGENCY REFILL* 4 capsule 10 amLODIPine (NORVASC) 5 mg tablet Take 1 tablet by mouth once daily. [address] (PROTONIX) 40 mg tablet TAKE ONE (1) TABLET BY MOUTH TWICE DAILY 60 tablet 10 iv contrast (will be provided with radiology test) MRA Brain Inject, intravenously, once for 1 dose. No IV access, insert saline lock prior to the beginning of sedation, infusion, injection of imaging exam. Discontinue saline lock post exam. If Pt. has a central line or IVAD, may access for administration according to line specific nursing protocol. Once exam is complete flush line and de-access according to line specific nursing protocol in the MR contrast administration guidelines link. (Patient not taking: Reported on 11/03/2022) 1 Each 0 iv contrast (will be provided with radiology test) MRI Brain Inject, intravenously, once for 1 dose.No IV access, insert saline lock prior to beginning of sedation, infusion, injection of imaging exam.Discontinue saline lock post exam. If Pt. has a central line or IVAD, may access for administration according to line specific nursing protocol.Once exam is complete flush line and de-access according to line specific nursing protocol in the MR contrast administration guidelines link (Patient not taking: Reported on 11/03/2022) 1 Each 0 iv contrast (will be provided with radiology test) MRI Brain Inject, intravenously, once for 1 dose.No IV access, insert saline lock prior to beginning of sedation, infusion, injection of imaging exam.Discontinue saline lock post exam. If Pt. has a central line or IVAD, may access for administration according to line specific nursing protocol.Once exam is complete flush line and de-access according to line specific nursing protocol in the MR contrast administration guidelines link (Patient not taking: Reported on 11/03/2022) 1 Each 0 iv contrast (will be provided with radiology test) MRA Brain Inject, intravenously, once for 1 dose. No IV access, insert saline lock prior to the beginning of sedation, infusion, injection of imaging exam. Discontinue saline lock post exam. If Pt. has a central line or IVAD, may access for administration according to line specific nursing protocol. Once exam is complete flush line and de-access according to line specific nursing protocol in the MR contrast administration guidelines link. (Patient not taking: Reported on 11/03/2022) 1 Each 0 aspirin 81 mg chewable tablet Take 1 tablet by mouth once daily. 90 tablet 0 acetaminophen (TYLENOL) 325 mg tablet Take 2 tablets by mouth every 6 hours. 0 No current facility-administered medications for this visit. DATA: CBC: No results for input(s): WBC, RBC, HB, HCT, PLT, MCV, MCH, MPV, RDW in the last 24 hours. CMP:No results for input(s): NA, K, CHLOR, CO2, BUN, CREAT, GLUC, TPROT, CA, MG, ALBUMIN, TBILI, ALKPHOS, ALT, AST, ANION in the last 24 hours. No results found for this basename: psa Cholesterol, Total (mg/dL) Date Value 07/09/2022 141 10/14/2020 147 HDL Cholesterol (mg/dL) Date Value 07/09/2022 51 10/14/2020 38 LDL Cholesterol (mg/dL) Date Value 07/09/2022 73 10/14/2020 90 Triglyceride (mg/dL) Date Value 07/09/2022 85 10/14/2020 96 Hemoglobin A1C (%) Date Value 10/14/2020 5.5 02/19/2019 5.5 11/10/2017 5.3 11/09/2017 5.2 11/08/2017 5.3 BP 124/66 Pulse 82 LMP 02/23/2022 (Approximate) SpO2 98% PHYSICAL EXAMINATION: General appearance: Well appearing, alert, in no acute distress, well-hydrated, well nourished. Skin: Skin color, texture, turgor normal, no suspicious rashes or lesions Head: Normocephalic, no masses, lesions, tenderness or abnormalities Eyes: Anicteric sclera. Pupils are equally round and reactive to light. Extraocular movements are intact. Ears: External ears normal, canals clear Nose/Sinuses: Nares normal, septum midline, mucosa normal, no drainage or sinus tenderness Oropharynx: Lips, mucosa, and tongue normal, teeth and gums normal, oropharynx normal Neck: Supple, no adenopathy; thyroid symmetric, normal size, no bruits Back: Normal exam Lungs: Lungs clear to auscultation. No wheezing, rhonchi, rales Heart: RRR without murmur, gallop, or rubs. No ectopy Abdomen: Normal abdominal exam, Abdomen soft, non-tender. Bowel sounds normal. No masses, organomegaly Extremities: No deformities, edema, skin discoloration, clubbing or cyanosis. Good capillary refill. Musculoskeletal: No joint swelling, deformity, or tenderness Peripheral pulses: Normal Neuro: No focal deficit/at baseline Feet: Pulses positive No sensory deficit Consultants notes reviewed Most recent CT/CXR reviewed Last EKG reviewed ASSESSMENT/PLAN: 1. Dizziness - ICD9: 780.4, ICD10: R42 (primary diagnosis) I have discussed with the patient the differential diagnosis of dizziness and ataxia explained that this could be a new stroke however other etiologies cannot be ruled out the patient stated that she did not want to be admitted to [facility] I discussed with the patient that she needed further workup including MRI of the brain neuroconsultation monitor EKG telemetry complication of CVA including life-threatening and has been explained to the patient the patient declined the above she agreed only to do an MRI as an outpatient she does not want to go to the ER aware of the consultation she does not feel that she needs any cardiac workup. 2. Essential hypertension - ICD9: 401.9, ICD10: I10 - Controlled - Recommend home blood pressure monitoring, to bring results to next visit - Encouraged sodium restriction, DASH or Mediterranean diet - Recommend regular aerobic exercise 3. Dietary counseling - ICD9: V65.3, ICD10: Z71.3 The patient is asked to make an attempt to improve diet and exercise patterns to aid in medical management of this problem. 4. Mild intermittent asthma without complication - ICD9: 493.90, ICD10: J45.20 Advised to schedule pulmonary function test - Avoidance of triggers recommended - Asthma Action Plan reviewed 5. BORA (acute kidney injury) (HCC) - ICD9: 584.9, ICD10: N17.9 Importance of being compliant has been discussed with the patient advised follow-up CMP 6. Mixed hyperlipidemia - ICD9: 272.2, ICD10: E78.2 Advised to follow-up CMP flp - Counseled on healthy diet and regular exercise Will review records from Shara Ely MD documented in this encounter [facility] 06-20-2023 Hospital Discharge instructions Jayne Kerns MD - 06/20/2023 7:43 PM EST Procedures done during this visit: None The following attachments cannot be sent through Care Everywhere.Risk Factors for Stroke (Bulgarian)Syncope (Fainting) Discharge Instructions (Bulgarian)documented in this encounter [facility] Work Phone: 06-14-2023 History of Present illness Narrative Nida Francis engaged in a telehealth session via PHONE with this provider practicing within the [facility]. The identity of Nida was verified by their date of , (1980), and last four digits of their social security number, ([id number]). The provider demonstrated that confidentially was preserved at their location. Nida was informed that they were responsible for ensuring confidentially was secured at their location. Nida's location was documented for emergency purposes. Nida was informed of the necessary steps that would occur if an emergency was to occur or technology failed during session. COUNSELING PROGRESS NOTE Nida Francis is a 42 year old female here today for Individual Counseling/Couples Counseling. Reviewed progress since last couples session. Assessed changes since last session for CL and Partner and monitored current stressors. Provided active listening and supportive feedback. Assisted CL and RI in processing different perceptions of their relationship. Discussed how CL and RI keep focusing venting the problems and not focusing on identifying some solutions. CL reported that tentatively things are good and RI reported that she asked for a divorce. CL stated this reaction is her RI's response when not feeling heard or validated. CL and RI described unresolved conflicts that led to sustained, long periods of distrust and alienation from each other. RI feels CL doesn't validate what she went through in the the past. CL verbalized that RI doesn't accept how the strokes impacted her ability to remember the past. RI recognized that new exposure to therapy has made her more aware of her internal and emotional trauma from the past impacting current relationship. SUBJECTIVE: Client appeared sad or depressed, nervous or anxious, and irritated or angry. Evaluated Safety and risk: N/A. OBJECTIVE: Assessment of Mood: anxiety, depressed mood, and frustration. Discussed client's use of CBT, Solution Focused Therapy, and Couples Therapy . Goal from ISSP addressed during this session: improve functioning and more effectively manage symptoms of anxiety, anger and depression. ASSESSMENT: Diagnosis: F43.20,Z63.4 Bereavement reaction (primary encounter diagnosis) F41.9 Anxiety Engaged client in learning/reviewing Behavioral Analysis, Review of Thinking Errors and Cognitive Challenges, Emotional Regulation, Effective Communication, and Self-Care, Bibliotherapy. Progress toward goal: No Change PLAN: Assigned homework/practice of the following: Behavioral Analysis, Review of Thinking Errors and Cognitive Challenges, Emotional Regulation, Effective Communication, and Self-Care, Bibliotherapy. CL and RI will use Dance of Anger, Dance of Connection, Feel the Fear and Do It Anyway, and How To Make Love All the Time and free dayanara Insight Timer for meditations to address their PTSD, anger, anxiety and depression symptoms. CL and RI will practice intuitive couples exercise to connect w/o speech. Continue psychotherapy Current Service Plan Service Plan Mental Health To provide counseling to minimize symptoms of depression and anxiety Client's symptoms will decrease by 10% over the next 6 month indicated by the PHQ-9 and PETE-7 results Current Care Plan There are no care plans that you recently modified to display for this patient. Next appointment: Scheduled next appointment for 06-21-23 @ 6:45 PM [facility] documented in this encounter [facility] Work Phone: 06-14-2023 History of Present illness Narrative Nida Francis engaged in a telehealth session via PHONE with this provider practicing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 skills, focus on solution and not the problem, be open to input and use ideally when stating wants and needs to allow negotiation. CL was able to list 3 things that her RI does that make her feel loved, and RI found this exercise a challenge. RI stated they have different love languages. RI expressed a willingness to think about this some more. RI stated that our last episode made her realize her expectations for CL were based on her parents 20 yr marriage and her grandparents 50 yr together. I felt different after our last session, like a wt was lifted, I felt heard. RI reported having a couple of flashbacks and told herself not now and emotions did not escalate. CL admitted having problems being assertive and was able to confront her landlord. CL and RI agreed to use Growing Up Again to identify the healthy parenting styles for providing structure and support for their teen. SUBJECTIVE: Client appeared neutral or euthymic and nervous or anxious. Evaluated Safety and risk: N/A. OBJECTIVE: Assessment of Mood: anxiety and depressed mood Discussed client's use of CBT, Solution Focused Therapy, and Couples Counseling . Goal from ISSP addressed during this session: improve functioning and more effectively manage symptoms of anxiety, anger and depression. ASSESSMENT: Diagnosis: F43.20,Z63.4 Bereavement reaction (primary encounter diagnosis) F41.9 Anxiety Engaged client in learning/reviewing Behavioral Analysis, Review of Thinking Errors and Cognitive Challenges, Behavioral Testing, Effective Communication, Mindfulness, Tolerating Distress, and Self-Care, Bibliotherapy. Progress toward goal: Minimal Improvement PLAN: Assigned homework/practice of the following: Behavioral Analysis, Review of Thinking Errors and Cognitive Challenges, Behavioral Testing, Effective Communication, Mindfulness, Tolerating Distress, and Self-Care, Bibliotherapy. CL and RI will use Growing Up Again to identify their parenting styles and work towards providing their teen with health, age appropriate rules of behavior. CL and RI will use Dance of Anger, Dance of Connection, Feel the Fear and Do It Anyway, and How To Make Love All the Time and free dayanara Insight Timer for meditations to address their PTSD, anger, anxiety and depression symptoms. Continue psychotherapy Current Service Plan Service Plan Mental Health To provide counseling to minimize symptoms of depression and anxiety Client's symptoms will decrease by 10% over the next 6 month indicated by the PHQ-9 and PETE-7 results Current Care Plan There are no care plans that you recently modified to display for this patient. Next appointment: Scheduled next appointment for 05-17-23 @ 6:45 PM [facility] documented in this encounter [facility] Work Phone: 05-03-2023 History of Present illness Narrative Nida Tim engaged in a telehealth session via PHONE with this provider practicing within the [facility] [place]. The identity of Nida was verified by their date of , (1980), and last four digits of their social security number, ([id number]). The provider demonstrated that confidentially was preserved at their location. Nida was informed that they were responsible for ensuring confidentially was secured at their location. Nida's location was documented for emergency purposes. Nida was informed of the necessary steps that would occur if an emergency was to occur or technology failed during session. COUNSELING PROGRESS NOTE Nida Francis is a 42 year old female here today for Individual Counseling/Couples Counseling. Reviewed progress since last couples session. Assessed changes since last session for CL and Partner and monitored current stressors. Provided active listening and supportive feedback. Assisted CL and RI in processing incident w/teen calling the police alienating RI further. Validated the importance of providing the teenager with age appropriate rules and expectations for their own personal growth and competence. Discussed how Stage 6, Identity, Sexuality, Separation and increased competency from Growing Up Again could provide CL and RI with guidelines, based on research, to assist their teenager to acquire these skills and review if they also need to learn these skills. Pointed out that trust and respect are earned in the present by keeping rules, goals and promises agreed upon and working on forgiving self and other sometime in the future. Discussed books on relationships for both to use between sessions. CL reported arguing with RI and teenager calling the police. CL stated both had calmed downed by the time they arrived and RI agreed to leave the house. RI stated this added to her resentment and anger towards the teen. RI verbalized her anger, resentment and bitterness suffering for 17 years in this relationship. RI responded favorably to setting house rules for teen and CL agreed reluctantly to using GUA. CL and RI responded favorably to material in relationships, anxiety and anger management. RI agreed to affirmation someday I will be willing to forgive myself, for not setting boundaries with CL or leaving a relationship causing her pain. SUBJECTIVE: Client appeared sad or depressed, nervous or anxious, and irritated or angry. Evaluated Safety and risk: N/A. OBJECTIVE: Assessment of Mood: anxiety, depressed mood, and frustration. Discussed client's use of CBT and Solution Focused Therapy. Goal from ISSP addressed during this session: improve functioning and more effectively manage symptoms of anxiety, anger and depression. ASSESSMENT: Diagnosis: PTSD. Engaged client in learning/reviewing Behavioral Analysis, Review of Thinking Errors and Cognitive Challenges, Emotional Regulation, Behavioral Testing, Effective Communication, Self-Compassion, and Self-Care, Couples Counseling, Bilitherapy Progress toward goal: Minimal Improvement PLAN: Assigned homework/practice of the following: Behavioral Analysis, Review of Thinking Errors and Cognitive Challenges, Emotional Regulation, Behavioral Testing, Effective Communication, Self-Compassion, and Self-Care, Couples Counseling, Bilitherapy . Continue psychotherapy Current Service Plan Service Plan Mental Health To provide counseling to minimize symptoms of depression and anxiety Client's symptoms will decrease by 10% over the next 6 month indicated by the PHQ-9 and PETE-7 results Current Care Plan There are no care plans that you recently modified to display for this patient. Next appointment: Scheduled next appointment for 05-17-23 @ 6:45 PM at Office:[facility]. documented in this encounter [facility] Work Phone: 05-03-2023 History of Present illness Narrative Nida Francis engaged in a telehealth session via PHONE with this provider practicing within the [facility]. The identity of Nida was verified by their date of , (1980), and last four digits of their social security number, ([id number]). The provider demonstrated that confidentially was preserved at their location. Nida was informed that they were responsible for ensuring confidentially was secured at their location. Nida's location was documented for emergency purposes. Nida was informed of the necessary steps that would occur if an emergency was to occur or technology failed during session. COUNSELING PROGRESS NOTE Nida Francis is a 42 year old female here today for Individual Counseling/Couples Counseling. Reviewed progress since last couples session. Assessed changes since last session for CL and Partner and monitored current stressors. Provided active listening and supportive feedback. Assisted CL and RI in processing incident w/teen calling the police alienating RI further. Validated the importance of providing the teenager with age appropriate rules and expectations for their own personal growth and competence. Discussed how Stage 6, Identity, Sexuality, Separation and increased competency from Growing Up Again could provide CL and RI with guidelines, based on research, to assist their teenager to acquire these skills and review if they also need to learn these skills. Pointed out that trust and respect are earned in the present by keeping rules, goals and promises agreed upon and working on forgiving self and other sometime in the future. Discussed books on relationships for both to use between sessions. CL reported arguing with RI and teenager calling the police. CL stated both had calmed downed by the time they arrived and RI agreed to leave the house. RI stated this added to her resentment and anger towards the teen. RI verbalized her anger, resentment and bitterness suffering for 17 years in this relationship. RI responded favorably to setting house rules for teen and CL agreed reluctantly to using GUA. CL and RI responded favorably to material in relationships, anxiety and anger management. RI agreed to affirmation someday I will be willing to forgive myself, for not setting boundaries with CL or leaving a relationship causing her pain. SUBJECTIVE: Client appeared sad or depressed, nervous or anxious, and irritated or angry. Evaluated Safety and risk: N/A. OBJECTIVE: Assessment of Mood: anxiety, depressed mood, and frustration. Discussed client's use of CBT and Solution Focused Therapy. Goal from ISSP addressed during this session: improve functioning and more effectively manage symptoms of anxiety, anger and depression. ASSESSMENT: Diagnosis: PTSD. Engaged client in learning/reviewing Behavioral Analysis, Review of Thinking Errors and Cognitive Challenges, Emotional Regulation, Behavioral Testing, Effective Communication, Self-Compassion, and Self-Care, Couples Counseling, Bilitherapy Progress toward goal: Minimal Improvement PLAN: Assigned homework/practice of the following: Behavioral Analysis, Review of Thinking Errors and Cognitive Challenges, Emotional Regulation, Behavioral Testing, Effective Communication, Self-Compassion, and Self-Care, Couples Counseling, Bilitherapy . CL and RI will use Growing Up Again to address their teenager's behavior. CL and RI will use Dance of Anger, Dance of Connection, Feel the Fear and Do It Anyway, and How To Make Love All the Time and free dayanara Insight Timer for meditations to address their PTSD, anger, anxiety and depression symptoms. Continue psychotherapy Current Service Plan Service Plan Mental Health To provide counseling to minimize symptoms of depression and anxiety Client's symptoms will decrease by 10% over the next 6 month indicated by the PHQ-9 and PETE-7 results Current Care Plan There are no care plans that you recently modified to display for this patient. Next appointment: Scheduled next appointment for 05-17-23 @ 6:45 PM at Office:Leo Benjamin. documented in this encounter [facility] Work Phone: 04-29-2023 History of Present illness Narrative Nida Francis engaged in a telehealth session via PHONE with this provider practicing within the [facility]. The identity of Nida was verified by their date of , (1980), and last four digits of their social security number, ([id number]). The provider demonstrated that confidentially was preserved at their location. Nida was informed that they were responsible for ensuring confidentially was secured at their location. Nida's location was documented for emergency purposes. Nida was informed of the necessary steps that would occur if an emergency was to occur or technology failed during session. COUNSELING PROGRESS NOTE Nida Francis is a 42 year old female here today for Individual Counseling. PC provided supportive listening as client described experiencing an increase in symptoms leading to physical illness. PC assisted client to explore triggers as client stated she was unaware of triggers. PC referred client to discuss increased symptoms with her psychiatrist and PCP. PC assisted client in exploring next steps toward independence in the marriage . Client states not being in contact with her has decreased stress and symptoms. PC helped client to explore the impact of moving to a new apartment without her son and his partner. Client became physically ill during the conversation and had to end the session. PC to further process believe, self talk, fears concerns regarding moving alone into new housing and the impact on symptoms during the next session. PC provided client with listing of affordable housing in the area. PC provided positive regard, validation, problem solving throughout the session. SUBJECTIVE: Client appeared nervous or anxious and worried or scared. Evaluated Safety and risk: N/A. OBJECTIVE: Assessment of Mood: anxiety Discussed client's use of CBT and Solution Focused Therapy. Goal from ISSP addressed during this session: Increase ability to manage anxiety and restore daily life roles and activities ASSESSMENT: Diagnosis: Bipolar II disorder, PTSD, Panic disorder Engaged client in learning Review of Thinking Errors and Cognitive Challenges, Self-Compassion, and problem solving,self care Progress toward goal: Moderate Improvement PLAN: Assigned homework/practice of the following: Self-Compassion, Mindfulness, and guided positive affirmations for panic and anxiety, follow up with PCP and psychiatrist . Continue psychotherapy Current Service Plan Service Plan Mental Health To provide counseling to minimize symptoms of depression and anxiety Client's symptoms will decrease by 10% over the next 6 month indicated by the PHQ-9 and PETE-7 results Current Care Plan Care Plan: Counseling Care Plan Updates made by Ramses Allen LPC since 04/29/2022 12:00 AM Problem: Anxiety Long-Range Goal: Increase ability to manage anxiety and restore daily life roles and activities Start Date: 11/12/2022 Expected End Date: 11/13/2023 This Visit's Progress: On track Priority: High Task: Assist the client in identifying at least three situations and patterns of thought which precede/maintain anxiety symptoms so the client may respond more adaptively to those situations and thoughts Due Date: 11/13/2023 Priority: High Outcome: Positive Responsible User: Ramses Allen LPC Note: PC will utilize various therapeutic modalities and interventions including CBT and DBT. Goal: Explore and process 2-3 underlying reasons for anxious moods over the next 6 months Start Date: 11/12/2022 Expected End Date: 11/13/2023 This Visit's Progress: On track Priority: High Note: Progress noted through PETE-7 scores. Screening to be completed every 6 months during the service plan review. Goal: Identify, challenge and replace biased, fearful self-talk with reality-based, positive self-talk Start Date: 11/12/2022 Expected End Date: 11/13/2023 This Visit's Progress: On track Priority: High Note: Client will identify negative self talk and beliefs and replace with positive affirmations 1x during each counseling session. Problem: Depression Long-Range Goal: Alleviate depression and restore daily life roles and activities Start Date: 11/12/2022 Expected End Date: 11/13/2023 This Visit's Progress: On track Priority: High Task: Clinician will teach client in the use of behavioral skills training methods such as instruction, modeling, rehearsal, to develop skills and practice, review, and corrective feedback for refining and consolidating use Due Date: 11/13/2023 Priority: High Outcome: Positive Responsible User: Ramses Allen LPC Note: PC will use behavioral activation strategies, DBT and CBT. Goal: Explore and practice at least three evidence-based relaxation activities that reduce depression over the next 6 months Start Date: 11/12/2022 Expected End Date: 12/14/2023 This Visit's Progress: On track Priority: Medium Note: Progress to be monitored through PHQ-9 screenings administered every 6 months during the care plan review. Next appointment: Scheduled next appointment for 05/13/23 at Other: telehealth . documented in this encounter [facility] Work Phone: 04-08-2023 History of Present illness Narrative Nida Francis engaged in a telehealth session via PHONE with this provider practicing within the [facility]. The identity of Nida was verified by their date of , (1980), and last four digits of their social security number, ([id number]). The provider demonstrated that confidentially was preserved at their location. Nida was informed that they were responsible for ensuring confidentially was secured at their location. Nida's location was documented for emergency purposes. Nida was informed of the necessary steps that would occur if an emergency was to occur or technology failed during session. COUNSELING PROGRESS NOTE Nida Francis is a 42 year old female here today for Individual Counseling. Client reached out to PC upon recommendation of hospital staff. Client is currently hospitalized for anxiety symptoms that has affected client's physical health. PC assisted client in processing events that have led to her hospitalization. PC helped client develop a timeline of events that have been ongoing contribution to stress, anxiety and triggering mental health symptoms for many months. PC explored client's lack of use of interventions to manage mental health symptoms and stress. PC helped client to process the possible correlation between stress, dysfunctional relationship dynamics, uncertain housing, lack of finances and support in the home and increased employment requirements to current symptoms. PC helped client to create a plan to return to and engage in structured therapeutic interventions throughout the day, ways to set limits on others and designate tasks to others. PC outreached her commercial sales manager to discuss reasons for the cancellation of couple's counseling. PC reached out to the team to inquire if client can be scheduled for an earlier appointment for psychiatry with any available provider as client is starting new medication.Client states willingness to contact PC earlier if symptoms increase before the scheduled appointment on 04/15/23. SUBJECTIVE: Client appeared nervous or anxious. Evaluated Safety and risk: N/A. OBJECTIVE: Assessment of Mood: anxiety and depressed mood Discussed client's use of CBT and Solution Focused Therapy. Goal from ISSP addressed during this session: Increase ability to manage anxiety and restore daily life roles and activities ASSESSMENT: Diagnosis: Bipolar II disorder, Panic disorder, PTSD Engaged client in learning Review of Thinking Errors and Cognitive Challenges and Emotional Regulation Progress toward goal: Minimal Improvement (deterioration) PLAN: Assigned homework/practice of the following: Mindfulness and guided positive affirmations for panic and anxiety, guided mediatation, delegating duties to others . Continue psychotherapy Current Service Plan Service Plan Mental Health To provide counseling to minimize symptoms of depression and anxiety Client's symptoms will decrease by 10% over the next 6 month indicated by the PHQ-9 and PETE-7 results Current Care Plan Care Plan: Counseling Care Plan Updates made by Ramses Allen LPC since 04/08/2022 12:00 AM Problem: Anxiety Long-Range Goal: Increase ability to manage anxiety and restore daily life roles and activities Start Date: 11/12/2022 Expected End Date: 11/13/2023 This Visit's Progress: On track Priority: High Task: Assist the client in identifying at least three situations and patterns of thought which precede/maintain anxiety symptoms so the client may respond more adaptively to those situations and thoughts Due Date: 11/13/2023 Priority: High Outcome: Positive Responsible User: Ramses Allen LPC Note: PC will utilize various therapeutic modalities and interventions including CBT and DBT. Goal: Explore and process 2-3 underlying reasons for anxious moods over the next 6 months Start Date: 11/12/2022 Expected End Date: 11/13/2023 This Visit's Progress: On track Priority: High Note: Progress noted through PETE-7 scores. Screening to be completed every 6 months during the service plan review. Goal: Identify, challenge and replace biased, fearful self-talk with reality-based, positive self-talk Start Date: 11/12/2022 Expected End Date: 11/13/2023 This Visit's Progress: On track Priority: High Note: Client will identify negative self talk and beliefs and replace with positive affirmations 1x during each counseling session. Problem: Depression Long-Range Goal: Alleviate depression and restore daily life roles and activities Start Date: 11/12/2022 Expected End Date: 11/13/2023 This Visit's Progress: On track Priority: High Task: Clinician will teach client in the use of behavioral skills training methods such as instruction, modeling, rehearsal, to develop skills and practice, review, and corrective feedback for refining and consolidating use Due Date: 11/13/2023 Priority: High Outcome: Positive Responsible User: Ramses Allen LPC Note: PC will use behavioral activation strategies, DBT and CBT. Goal: Explore and practice at least three evidence-based relaxation activities that reduce depression over the next 6 months Start Date: 11/12/2022 Expected End Date: 12/14/2023 This Visit's Progress: On track Priority: Medium Note: Progress to be monitored through PHQ-9 screenings administered every 6 months during the care plan review. Next appointment: Scheduled next appointment for 04/15/23 at Other: telehealth . documented in this encounter [facility] Work Phone: 04-08-2023 History of Past i llness Narrative Problem Noted Date Diagnosed Date Resolved Date Starvation ketoacidosis 04/08/202303/25 Hip pain, right 01/24/2020 05/21/2020 Intractable vomiting 04/17/2019 020 MDD (major depressive disorder) 02/18/2019 02/20/2019 Vomiting 08/30/2018 02/20/2019 Mild intermittent asthma without complication 02/05/20 18 02/20/2019 Impaired functional mobility , balance, gait, and endurance 12/12/2017 04/08/2023 Nausea 08/25/2017 08/26/2017 Acalculous cholecystitis 08/18/201705/2017 Chronic cholecystitis 08/15/20172017 Overview: Added automatically from request for surgery [id number] Nausea and vomiting 07/23/2017 07/26/19 18 Pneumonia 02/03/2017 06/16/2017 Encephalopathy acute 10/09/2016 017 Hypokalemia 10/09/2016 07/25/2017 Alkalosis 10/07/2016 10/28/2016 Chest pain 09/17/2016 09/19/2016 BORA (acute kidney injury) 08/20/2016 Chest pain 08/20/2016 08/23/2016 Overview: Says she has had continuous chest pain for past few months Exam reveals chest wall and back tenderness ? fibromyalgia EKG showed some upsloping ST depression in lateral leads (same as EKG in 06/2016) Troponin awaited Based on presentation unlikely to be pain from ischemia Plan: 1. No further w/u if troponin negative and repeat EKG stable. QT prolongation 08/20/2016 08/23/2016 Overview: Hypokalemic when she came in She has also received multiple anti-emetics with potential for QT prolongation Plan: 1. Repeat EKG 2. Telemetry monitoring Right leg swelling 08/20/2016 Overview: US to r/o DVT Malnutrition of mild degree 06/16/2016 08/23/2016 Failure to thrive in adult 06/15/2016 0 10/28/2016 Overview: Nausea and vomiting x2 weeks causing dehydration Most likely due to cyclophosphamide (given temporal relationship with onset of symptoms) Less likely due to increased intracranial pressure (may be pseudotumor cerebri V.S vitamin D excess V.S intracranial aneurysm possibly causing obstruction to CSF drainage system). 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 Dehydration 06/15/2016 04/09/2023 Encounter for monitoring cyc lophosphamide therapy 03/29/2016 02/17/2017 Vasculitis 03/25/2016 10/28/2016 Overview: C/w prednisone 6 mg daily (on a taper per rheumatology note) Next dose of cyclophosphamide in September 23 per rheumatology note Celiac artery stenosis 01/08/201603/03 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 PRICING ANALYST negativeMRI:Acute right MCA infarct with multiple punctate acute infarctions on the contralateral side with multifocal anterior and posterior circulation stenoses with occlusion of a proximal sylvian branch of the Right middle cerebral artery concerning for underlying vasculopathy/vasculitis. CT chest on 12/04:scattered foci of groundglass attenuation involving both upper lobes, the right middle lobe, as well as the right lower lobe. DDx: includes ANCA vasculitis with 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 DRIVER involvement, APLA, Primary angiitis of 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 DRIVER,SLE LP: mild pleocytosis (lymphocyes 90),ptn slightly elevated :57 Plan: Angiography today Keep NPO,IVF 100 ml/hr If angiogram suggests vasculitis, to start high doses steroids IV . Possible brain biopsy at [facility]. Check other CTD and Vasculitis w/u Acute right MCA stroke 12/13/201512/12 Overview: Left sided Facial drooping since morning Associated with numbness and deviation of angle of mouth. Progressive weakness in small muscles of left hand. CT BRAIN WO CON: unremarkable. Neurology on consult. Plan:. Aspirin 325 mg PO. TELE Acute right MCA stroke 12/12/201502/17 Overview: Still c/o Left sided Facial drooping associated with numbness and deviation of angle of mouth.(with minimal improvement) Today she is having Rt hand numbness and tongue tip numbness MRI: Acute subsegmental right middle cerebral artery distribution infarction with additional punctate acute infarctions on the contralateral side superimposed on some chronic white matter insults including of the genu of the left internal capsule. Lipid panel: wnl other than HDL: 47 Plan:. Neurology on consult. Rheum on consult -following markers Possible angiography today Add Lipitor 40 mg daily Cardiology consult regarding BLAISE Pneumonia 12/05/2015 03/03/2016 Overview: Completed course of antibiotics today. She took azithromycin and cefipime Resolved. documented as of this encounter (statuses as of 05/29/2023) [facility] History of Past illness Narrative* Problem Noted Date Diagnosed Date Resolved Date Starvation ketoacidosis 04/08/202303/25 Hip pain, right 01/24/2020 05/21/2020 Intractable vomiting 04/17/2019 020 MDD (major depressive disorder) 02/18/2019 02/20/2019 Vomiting 08/30/2018 02/20/2019 Mild intermittent asthma without complication 02/05/20 18 02/20/2019 Impaired functional mobility , balance, gait, and endurance 12/12/2017 04/08/2023 Nausea 08/25/2017 08/26/2017 Acalculous cholecystitis 08/18/201705/2017 Chronic cholecystitis 08/15/20172017 Overview: Added automatically from request for surgery [id number] Nausea and vomiting 07/23/2017 07/26/19 18 Pneumonia 02/03/2017 06/16/2017 Encephalopathy acute 10/09/2016 017 Hypokalemia 10/09/2016 07/25/2017 Alkalosis 10/07/2016 10/28/2016 Chest pain 09/17/2016 09/19/2016 BORA (acute kidney injury) 08/20/2016 Chest pain 08/20/2016 08/23/2016 Overview: Says she has had continuous chest pain for past few months Exam reveals chest wall and back tenderness ? fibromyalgia EKG showed some upsloping ST depression in lateral leads (same as EKG in 06/2016) Troponin awaited Based on presentation unlikely to be pain from ischemia Plan: 1. No further w/u if troponin negative and repeat EKG stable. QT prolongation 08/20/2016 08/23/2016 Overview: Hypokalemic when she came in She has also received multiple anti-emetics with potential for QT prolongation Plan: 1. Repeat EKG 2. Telemetry monitoring Right leg swelling 08/20/2016 7 Overview: US to r/o DVT Malnutrition of mild degree 06/16/2016 08/23/2016 Failure to thrive in adult 06/15/2016 0 10/28/2016 Overview: Nausea and vomiting x2 weeks causing dehydration Most likely due to cyclophosphamide (given temporal relationship with onset of symptoms) Less likely due to increased intracranial pressure (may be pseudotumor cerebri V.S vitamin D excess V.S intracranial aneurysm possibly causing obstruction to CSF drainage system). 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 Dehydration 06/15/2016 04/09/2023 Encounter for monitoring cyc lophosphamide therapy 03/29/2016 02/17/2017 Vasculitis 03/25/2016 10/28/2016 Overview: C/w prednisone 6 mg daily (on a taper per rheumatology note) Next dose of cyclophosphamide in September 23 per rheumatology note Celiac artery stenosis 01/08/201603/03 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 PRICING ANALYST negativeMRI:Acute right MCA infarct with multiple punctate acute infarctions on the contralateral side with multifocal anterior and posterior circulation stenoses with occlusion of a proximal sylvian branch of the Right middle cerebral artery concerning for underlying vasculopathy/vasculitis. CT chest on 12/04:scattered foci of groundglass attenuation involving both upper lobes, the right middle lobe, as well as the right lower lobe. DDx: includes ANCA vasculitis with 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 DRIVER involvement, APLA, Primary angiitis of 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 DRIVER,SLE LP: mild pleocytosis (lymphocyes 90),ptn slightly elevated :57 Plan: Angiography today Keep NPO,IVF 100 ml/hr If angiogram suggests vasculitis, to start high doses steroids IV . Possible brain biopsy at [facility]. Check other CTD and Vasculitis w/u Acute right MCA stroke 12/13/201512/12 Overview: Left sided Facial drooping since morning Associated with numbness and deviation of angle of mouth. Progressive weakness in small muscles of left hand. CT BRAIN WO CON: unremarkable. Neurology on consult. Plan:. Aspirin 325 mg PO. TELE Acute right MCA stroke 12/12/201502/17 Overview: Still c/o Left sided Facial drooping associated with numbness and deviation of angle of mouth.(with minimal improvement) Today she is having Rt hand numbness and tongue tip numbness MRI: Acute subsegmental right middle cerebral artery distribution infarction with additional punctate acute infarctions on the contralateral side superimposed on some chronic white matter insults including of the genu of the left internal capsule. Lipid panel: wnl other than HDL: 47 Plan:. Neurology on consult. Rheum on consult -following markers Possible angiography today Add Lipitor 40 mg daily Cardiology consult regarding BLAISE Pneumonia 12/05/2015 03/03/2016 Overview: Completed course of antibiotics today. She took azithromycin and cefipime Resolved. documented as of this encounter (statuses as of 07/03/2023) [facility]12-[facility]23 History of Past illness Narrative* Problem Noted Date Diagnosed Date Resolved Date Starvation ketoacidosis 04/08/202303/25 Hip pain, right 01/24/2020 05/21/2020 Intractable vomiting 04/17/2019 020 MDD (major depressive disorder) 02/18/2019 02/20/2019 Vomiting 08/30/2018 02/20/2019 Mild intermittent asthma without complication 02/05/20 18 02/20/2019 Impaired functional mobility , balance, gait, and endurance 12/12/2017 04/08/2023 Nausea 08/25/2017 08/26/2017 Acalculous cholecystitis 08/18/201705/2017 Chronic cholecystitis 08/15/20172017 Overview: Added automatically from request for surgery [id number] Nausea and vomiting 07/23/2017 07/26/19 18 Pneumonia 02/03/2017 06/16/2017 Encephalopathy acute 10/09/2016 017 Hypokalemia 10/09/2016 07/25/2017 Alkalosis 10/07/2016 10/28/2016 Chest pain 09/17/2016 09/19/2016 BORA (acute kidney injury) 08/20/2016 Chest pain 08/20/2016 08/23/2016 Overview: Says she has had continuous chest pain for past few months Exam reveals chest wall and back tenderness ? fibromyalgia EKG showed some upsloping ST depression in lateral leads (same as EKG in 06/2016) Troponin awaited Based on presentation unlikely to be pain from ischemia Plan: 1. No further w/u if troponin negative and repeat EKG stable. QT prolongation 08/20/2016 08/23/2016 Overview: Hypokalemic when she came in She has also received multiple anti-emetics with potential for QT prolongation Plan: 1. Repeat EKG 2. Telemetry monitoring Right leg swelling 08/20/2016 7 Overview: US to r/o DVT Malnutrition of mild degree 06/16/2016 08/23/2016 Failure to thrive in adult 06/15/2016 0 10/28/2016 Overview: Nausea and vomiting x2 weeks causing dehydration Most likely due to cyclophosphamide (given temporal relationship with onset of symptoms) Less likely due to increased intracranial pressure (may be pseudotumor cerebri V.S vitamin D excess V.S intracranial aneurysm possibly causing obstruction to CSF drainage system). 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 Dehydration 06/15/2016 04/09/2023 Encounter for monitoring cyc lophosphamide therapy 03/29/2016 02/17/2017 Vasculitis 03/25/2016 10/28/2016 Overview: C/w prednisone 6 mg daily (on a taper per rheumatology note) Next dose of cyclophosphamide in September 23 per rheumatology note Celiac artery stenosis 01/08/201603/03 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 PRICING ANALYST negativeMRI:Acute right MCA infarct with multiple punctate acute infarctions on the contralateral side with multifocal anterior and posterior circulation stenoses with occlusion of a proximal sylvian branch of the Right middle cerebral artery concerning for underlying vasculopathy/vasculitis. CT chest on 12/04:scattered foci of groundglass attenuation involving both upper lobes, the right middle lobe, as well as the right lower lobe. DDx: includes ANCA vasculitis with 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 DRIVER involvement, APLA, Primary angiitis of 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 DRIVER,SLE LP: mild pleocytosis (lymphocyes 90),ptn slightly elevated :57 Plan: Angiography today Keep NPO,IVF 100 ml/hr If angiogram suggests vasculitis, to start high doses steroids IV . Possible brain biopsy at [facility]. Check other CTD and Vasculitis w/u Acute right MCA stroke 12/13/201512/12 Overview: Left sided Facial drooping since morning Associated with numbness and deviation of angle of mouth. Progressive weakness in small muscles of left hand. CT BRAIN WO CON: unremarkable. Neurology on consult. Plan:. Aspirin 325 mg PO. TELE Acute right MCA stroke 12/12/201502/17 Overview: Still c/o Left sided Facial drooping associated with numbness and deviation of angle of mouth.(with minimal improvement) Today she is having Rt hand numbness and tongue tip numbness MRI: Acute subsegmental right middle cerebral artery distribution infarction with additional punctate acute infarctions on the contralateral side superimposed on some chronic white matter insults including of the genu of the left internal capsule. Lipid panel: wnl other than HDL: 47 Plan:. Neurology on consult. Rheum on consult -following markers Possible angiography today Add Lipitor 40 mg daily Cardiology consult regarding BLAISE Pneumonia 12/05/2015 03/03/2016 Overview: Completed course of antibiotics today. She took azithromycin and cefipime Resolved. documented as of this encounter (statuses as of 07/15/2023) [facility] History of Past illness Narrative* Problem Noted Date Diagnosed Date Resolved Date Starvation ketoacidosis 04/08/202303/25 Hip pain, right 01/24/2020 05/21/2020 Intractable vomiting 04/17/2019 020 MDD (major depressive disorder) 02/18/2019 02/20/2019 Vomiting 08/30/2018 02/20/2019 Mild intermittent asthma without complication 02/05/20 18 02/20/2019 Impaired functional mobility , balance, gait, and endurance 12/12/2017 04/08/2023 Nausea 08/25/2017 08/26/2017 Acalculous cholecystitis 08/18/201705/2017 Chronic cholecystitis 08/15/20172017 Overview: Added automatically from request for surgery [id number] Nausea and vomiting 07/23/2017 07/26/19 18 Pneumonia 02/03/2017 06/16/2017 Encephalopathy acute 10/09/2016 017 Hypokalemia 10/09/2016 07/25/2017 Alkalosis 10/07/2016 10/28/2016 Chest pain 09/17/2016 09/19/2016 BORA (acute kidney injury) 08/20/2016 Chest pain 08/20/2016 08/23/2016 Overview: Says she has had continuous chest pain for past few months Exam reveals chest wall and back tenderness ? fibromyalgia EKG showed some upsloping ST depression in lateral leads (same as EKG in 06/2016) Troponin awaited Based on presentation unlikely to be pain from ischemia Plan: 1. No further w/u if troponin negative and repeat EKG stable. QT prolongation 08/20/2016 08/23/2016 Overview: Hypokalemic when she came in She has also received multiple anti-emetics with potential for QT prolongation Plan: 1. Repeat EKG 2. Telemetry monitoring Right leg swelling 08/20/2016 Overview: US to r/o DVT Malnutrition of mild degree 06/16/2016 08/23/2016 Failure to thrive in adult 06/15/2016 0 10/28/2016 Overview: Nausea and vomiting x2 weeks causing dehydration Most likely due to cyclophosphamide (given temporal relationship with onset of symptoms) Less likely due to increased intracranial pressure (may be pseudotumor cerebri V.S vitamin D excess V.S intracranial aneurysm possibly causing obstruction to CSF drainage system). 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 Dehydration 06/15/2016 04/09/2023 Encounter for monitoring cyc lophosphamide therapy 03/29/2016 02/17/2017 Vasculitis 03/25/2016 10/28/2016 Overview: C/w prednisone 6 mg daily (on a taper per rheumatology note) Next dose of cyclophosphamide in September 23 per rheumatology note Celiac artery stenosis 01/08/201603/03 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 PRICING ANALYST negativeMRI:Acute right MCA infarct with multiple punctate acute infarctions on the contralateral side with multifocal anterior and posterior circulation stenoses with occlusion of a proximal sylvian branch of the Right middle cerebral artery concerning for underlying vasculopathy/vasculitis. CT chest on 12/04:scattered foci of groundglass attenuation involving both upper lobes, the right middle lobe, as well as the right lower lobe. DDx: includes ANCA vasculitis with 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 DRIVER involvement, APLA, Primary angiitis of 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 DRIVER,SLE LP: mild pleocytosis (lymphocyes 90),ptn slightly elevated :57 Plan: Angiography today Keep NPO,IVF 100 ml/hr If angiogram suggests vasculitis, to start high doses steroids IV . Possible brain biopsy at [facility]. Check other CTD and Vasculitis w/u Acute right MCA stroke 12/13/201512/12 Overview: Left sided Facial drooping since morning Associated with numbness and deviation of angle of mouth. Progressive weakness in small muscles of left hand. CT BRAIN WO CON: unremarkable. Neurology on consult. Plan:. Aspirin 325 mg PO. TELE Acute right MCA stroke 12/12/201502/17 Overview: Still c/o Left sided Facial drooping associated with numbness and deviation of angle of mouth.(with minimal improvement) Today she is having Rt hand numbness and tongue tip numbness MRI: Acute subsegmental right middle cerebral artery distribution infarction with additional punctate acute infarctions on the contralateral side superimposed on some chronic white matter insults including of the genu of the left internal capsule. Lipid panel: wnl other than HDL: 47 Plan:. Neurology on consult. Rheum on consult -following markers Possible angiography today Add Lipitor 40 mg daily Cardiology consult regarding BLAISE Pneumonia 12/05/2015 03/03/2016 Overview: Completed course of antibiotics today. She took azithromycin and cefipime Resolved. documented as of this encounter (statuses as of 07/19/2023) [facility]12-15-[facility] History of Past illness Narrative* Problem Noted Date Diagnosed Date Resolved Date Starvation ketoacidosis 04/08/202303/25 Hip pain, right 01/24/2020 05/21/2020 Intractable vomiting 04/17/2019 020 MDD (major depressive disorder) 02/18/2019 02/20/2019 Vomiting 08/30/2018 02/20/2019 Mild intermittent asthma without complication 02/05/20 18 02/20/2019 Impaired functional mobility , balance, gait, and endurance 12/12/2017 04/08/2023 Nausea 08/25/2017 08/26/2017 Acalculous cholecystitis 08/18/201705/2017 Chronic cholecystitis 08/15/20172017 Overview: Added automatically from request for surgery [id number] Nausea and vomiting 07/23/2017 07/26/19 18 Pneumonia 02/03/2017 06/16/2017 Encephalopathy acute 10/09/2016 017 Hypokalemia 10/09/2016 07/25/2017 Alkalosis 10/07/2016 10/28/2016 Chest pain 09/17/2016 09/19/2016 BORA (acute kidney injury) 08/20/2016 Chest pain 08/20/2016 08/23/2016 Overview: Says she has had continuous chest pain for past few months Exam reveals chest wall and back tenderness ? fibromyalgia EKG showed some upsloping ST depression in lateral leads (same as EKG in 06/2016) Troponin awaited Based on presentation unlikely to be pain from ischemia Plan: 1. No further w/u if troponin negative and repeat EKG stable. QT prolongation 08/20/2016 08/23/2016 Overview: Hypokalemic when she came in She has also received multiple anti-emetics with potential for QT prolongation Plan: 1. Repeat EKG 2. Telemetry monitoring Right leg swelling 08/20/2016 7 Overview: US to r/o DVT Malnutrition of mild degree 06/16/2016 08/23/2016 Failure to thrive in adult 06/15/2016 0 10/28/2016 Overview: Nausea and vomiting x2 weeks causing dehydration Most likely due to cyclophosphamide (given temporal relationship with onset of symptoms) Less likely due to increased intracranial pressure (may be pseudotumor cerebri V.S vitamin D excess V.S intracranial aneurysm possibly causing obstruction to CSF drainage system). 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 Dehydration 06/15/2016 04/09/2023 Encounter for monitoring cyc lophosphamide therapy 03/29/2016 02/17/2017 Vasculitis 03/25/2016 10/28/2016 Overview: C/w prednisone 6 mg daily (on a taper per rheumatology note) Next dose of cyclophosphamide in September 23 per rheumatology note Celiac artery stenosis 01/08/201603/03 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 PRICING ANALYST negativeMRI:Acute right MCA infarct with multiple punctate acute infarctions on the contralateral side with multifocal anterior and posterior circulation stenoses with occlusion of a proximal sylvian branch of the Right middle cerebral artery concerning for underlying vasculopathy/vasculitis. CT chest on 12/04:scattered foci of groundglass attenuation involving both upper lobes, the right middle lobe, as well as the right lower lobe. DDx: includes ANCA vasculitis with 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 DRIVER involvement, APLA, Primary angiitis of 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 DRIVER,SLE LP: mild pleocytosis (lymphocyes 90),ptn slightly elevated :57 Plan: Angiography today Keep NPO,IVF 100 ml/hr If angiogram suggests vasculitis, to start high doses steroids IV . Possible brain biopsy at [facility]. Check other CTD and Vasculitis w/u Acute right MCA stroke 12/13/201512/12 Overview: Left sided Facial drooping since morning Associated with numbness and deviation of angle of mouth. Progressive weakness in small muscles of left hand. CT BRAIN WO CON: unremarkable. Neurology on consult. Plan:. Aspirin 325 mg PO. TELE Acute right MCA stroke 12/12/201502/17 Overview: Still c/o Left sided Facial drooping associated with numbness and deviation of angle of mouth.(with minimal improvement) Today she is having Rt hand numbness and tongue tip numbness MRI: Acute subsegmental right middle cerebral artery distribution infarction with additional punctate acute infarctions on the contralateral side superimposed on some chronic white matter insults including of the genu of the left internal capsule. Lipid panel: wnl other than HDL: 47 Plan:. Neurology on consult. Rheum on consult -following markers Possible angiography today Add Lipitor 40 mg daily Cardiology consult regarding BLAISE Pneumonia 12/05/2015 03/03/2016 Overview: Completed course of antibiotics today. She took azithromycin and cefipime Resolved. documented as of this encounter (statuses as of 07/19/2023) [facility] History of Past illness Narrative* Problem Noted Date Diagnosed Date Resolved Date Starvation ketoacidosis 04/08/202303/25 Hip pain, right 01/24/2020 05/21/2020 Intractable vomiting 04/17/2019 020 MDD (major depressive disorder) 02/18/2019 02/20/2019 Vomiting 08/30/2018 02/20/2019 Mild intermittent asthma without complication 02/05/20 18 02/20/2019 Impaired functional mobility , balance, gait, and endurance 12/12/2017 04/08/2023 Nausea 08/25/2017 08/26/2017 Acalculous cholecystitis 08/18/201705/2017 Chronic cholecystitis 08/15/20172017 Overview: Added automatically from request for surgery [id number] Nausea and vomiting 07/23/2017 07/26/19 18 Pneumonia 02/03/2017 06/16/2017 Encephalopathy acute 10/09/2016 017 Hypokalemia 10/09/2016 07/25/2017 Alkalosis 10/07/2016 10/28/2016 Chest pain 09/17/2016 09/19/2016 BORA (acute kidney injury) 08/20/2016 Chest pain 08/20/2016 08/23/2016 Overview: Says she has had continuous chest pain for past few months Exam reveals chest wall and back tenderness ? fibromyalgia EKG showed some upsloping ST depression in lateral leads (same as EKG in 06/2016) Troponin awaited Based on presentation unlikely to be pain from ischemia Plan: 1. No further w/u if troponin negative and repeat EKG stable. QT prolongation 08/20/2016 08/23/2016 Overview: Hypokalemic when she came in She has also received multiple anti-emetics with potential for QT prolongation Plan: 1. Repeat EKG 2. Telemetry monitoring Right leg swelling 08/20/2016 7 Overview: US to r/o DVT Malnutrition of mild degree 06/16/2016 08/23/2016 Failure to thrive in adult 06/15/2016 0 10/28/2016 Overview: Nausea and vomiting x2 weeks causing dehydration Most likely due to cyclophosphamide (given temporal relationship with onset of symptoms) Less likely due to increased intracranial pressure (may be pseudotumor cerebri V.S vitamin D excess V.S intracranial aneurysm possibly causing obstruction to CSF drainage system). 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 Dehydration 06/15/2016 04/09/2023 Encounter for monitoring cyc lophosphamide therapy 03/29/2016 02/17/2017 Vasculitis 03/25/2016 10/28/2016 Overview: C/w prednisone 6 mg daily (on a taper per rheumatology note) Next dose of cyclophosphamide in September 23 per rheumatology note Celiac artery stenosis 01/08/201603/03 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 PRICING ANALYST negativeMRI:Acute right MCA infarct with multiple punctate acute infarctions on the contralateral side with multifocal anterior and posterior circulation stenoses with occlusion of a proximal sylvian branch of the Right middle cerebral artery concerning for underlying vasculopathy/vasculitis. CT chest on 12/04:scattered foci of groundglass attenuation involving both upper lobes, the right middle lobe, as well as the right lower lobe. DDx: includes ANCA vasculitis with 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 DRIVER involvement, APLA, Primary angiitis of 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 DRIVER,SLE LP: mild pleocytosis (lymphocyes 90),ptn slightly elevated :57 Plan: Angiography today Keep NPO,IVF 100 ml/hr If angiogram suggests vasculitis, to start high doses steroids IV . Possible brain biopsy at [facility]. Check other CTD and Vasculitis w/u Acute right MCA stroke 12/13/201512/12 Overview: Left sided Facial drooping since morning Associated with numbness and deviation of angle of mouth. Progressive weakness in small muscles of left hand. CT BRAIN WO CON: unremarkable. Neurology on consult. Plan:. Aspirin 325 mg PO. TELE Acute right MCA stroke 12/12/201502/17 Overview: Still c/o Left sided Facial drooping associated with numbness and deviation of angle of mouth.(with minimal improvement) Today she is having Rt hand numbness and tongue tip numbness MRI: Acute subsegmental right middle cerebral artery distribution infarction with additional punctate acute infarctions on the contralateral side superimposed on some chronic white matter insults including of the genu of the left internal capsule. Lipid panel: wnl other than HDL: 47 Plan:. Neurology on consult. Rheum on consult -following markers Possible angiography today Add Lipitor 40 mg daily Cardiology consult regarding BLAISE Pneumonia 12/05/2015 03/03/2016 Overview: Completed course of antibiotics today. She took azithromycin and cefipime Resolved. documented as of this encounter (statuses as of 08/09/2023) [facility]12[facility]08-[facility] History of Present illness Narrative* Ramses Allen, [employer] - 04/01/2023 10:17 AM EST Nida Francis engaged in a telehealth session via PHONE with this provider practicing within the [facility]. The identity of Nida was verified by their date of , (1980), and last fourdigits of their social security number, ([id number]). The provider demonstrated that confidentially was preserved at their location. Nida was informedthat they were responsible for ensuring confidentially was secured at their location. Nida's location was documented for emergency purposes. Nida was informed of the necessary steps that would occur if an emergency was to occur or technology failed during session. COUNSELING PROGRESS NOTE Nida Francis is a 42 year old female here today for Individual Counseling . PC provided supportivelistening as client described a traumatic experience that occurred at home with her pets. PC assisted client to process the event. PC helped client additionally explore client's initial response to the event. PC helped client to explore how the event triggered past trauma. PC helped client to explore net mender's responsibility and understanding the behavior of animals. PC helped client to explore expectations and misconceptions of couple's therapy. PC positively reinforced client taking steps to become more independent within the relationship by purchasing a car. PC completed a referral for care coordination and provided contact information of affordable housing. SUBJECTIVE: Client appeared neutral or euthymic. Evaluated Safety and risk: N/A. OBJECTIVE: Assessment of Mood: anxiety and depressed mood Discussed client's use of CBT. Goal from ISSP addressed during this session: Increase ability to manage anxiety and restore daily life roles and activities ASSESSMENT: Diagnosis: No diagnosis found. Engaged client in learning Review of Thinking Errors and Cognitive Challenges and Emotional Regulation Progress toward goal: Moderate Improvement PLAN: Assigned homework/practice of the following: seeking new housing, setting up zoom on the new phone . Continue psychotherapy Current Service Plan Service Plan Mental Health To provide counseling to minimize symptoms of depression and anxiety Client's symptoms will decrease by 10% over the next 6 month indicated by the PHQ-9 and PETE-7 results Current Care Plan Care Plan: Counseling Care Plan Updates made by Ramses Allen LPC since 04/01/2022 12:00 AM Problem: Anxiety Long-Range Goal: Increase ability to manage anxiety and restore daily life roles and activities Start Date: 11/12/2022 Expected End Date: 11/13/2023 This Visit's Progress: On track Priority: High Task: Assist the client in identifying at least three situations and patterns of thought which precede/maintain anxiety symptoms so the client may respond more adaptively to those situations and thoughts Due Date: 11/13/2023 Priority: High Outcome: Positive Responsible User: Ramses Allen LPC Note: PC will utilize various therapeutic modalities and interventions including CBT and DBT. Goal: Explore and process 2-3 underlying reasons for anxious moods over the next 6 months Start Date: 11/12/2022 Expected End Date: 11/13/2023 This Visit's Progress: On track Priority: High Note: Progress noted through PETE-7 scores. Screening to be completed every 6 months during the service plan review. Goal: Identify, challenge and replace biased, fearful self-talk with reality- based, positive self-talk Start Date: 11/12/2022 Expected End Date: 11/13/2023 This Visit's Progress: On track Priority: High Note: Client will identify negative self talk and beliefs and replace with positive affirmations 1x during each counseling session. Problem: Depression Long-Range Goal: Alleviate depression and restore daily life roles and activities Start Date: 11/12/2022 Expected End Date: 11/13/2023 This Visit's Progress: On track Priority: High Task: Clinician will teach client in the use of behavioral skills training methods such as instruction, modeling, rehearsal, to develop skills and practice, review, and corrective feedback for refining and consolidating use Due Date: 11/13/2023 Priority: High Outcome: Positive Responsible User: Ramses Allen LPC Note: PC will use behavioral activation strategies, DBT and CBT. Goal: Explore and practice at least three evidence-based relaxation activities that reduce depression over the next 6 months Start Date: 11/12/2022 Expected End Date: 12/14/2023 This Visit's Progress: On track Priority: Medium Note: Progress to be monitored through PHQ-9 screenings administered every 6 months during the care plan review. Next appointment: Scheduled next appointment for 04/15/23 at Other: telehealth . [facility] Phone: [phone]) 177-373212-05-2023 History of Present illness Narrative* SONY Elizondo - 03/29/2023 5:44 PM EST Nida Francis engaged in a telehealth session via PHONE with this provider practicing within the [facility]. The identity of Nida was verified by their date of , (1980), and last fourdigits of their social security number, ([id number]). The provider demonstrated that confidentially was preserved at their location. Nida was informedthat they were responsible for ensuring confidentially was secured at their location. Nida's location was documented for emergency purposes. Nida was informed of the necessary steps that would occur if an emergency was to occur or technology failed during session. COUNSELING PROGRESS NOTE Nida Francis is a 42 year old female here today for Individual Counseling/Couples Counseling. Thisis initial session with CL and RI with this Clinician. Supported and validated CL and RI as each shared her thoughts, feelings and concerns about the current state of their relationship and some personal hx together. Provided active listening and supportive feedback. Pointed out that RI is in the early stages of counseling and is experiencing all the trauma of the newly aware w/o the years of healing that CL has experienced. Explained to RI that she is also grieving the loss of her SO before the medical crisis which is impacting her feelings in the present. Informed CL and RI to focus on small steps, there will be relapses and they can move forward. Assisted CL and RI with plan for managingfight or flight reactions using Deep Breathing and Self/RI-soothing skills. RI shared her thoughts and feelings about the change in CL since CL's two strokes and resulting change in personality. RI reported change in CL's 19 y/o Juan as well and resentment over relationship CL has with [employer] and is constant fight/fright mode. CL stated she was with [employer] [facility] since she was16 and has been in individual counseling for years working on family of origin issues. CL and RI argue they experience flashbacks when they argue and with triggering behaviors. CL and RI agreed to use Self-Soothing techniques with each other when one is triggered. SUBJECTIVE: Client appeared irritated or angry. Evaluated Safety and risk: N/A. OBJECTIVE: Assessment of Mood: anxiety, denies suicidal ideation, depressed mood, feelings of worthlessness/guilt, impaired memory, and frustration. Discussed client's use of initial session . Goal from ISSP addressed during this session: improve functioning and more effectively manage symptoms of anxiety, anger and depression. ASSESSMENT: Diagnosis: PTSD. Engaged client in learning Behavioral Analysis, Effective Communication, Self- Compassion, Tolerating Distress, and Self/Other-Soothing, Relationship Counseling. Progress toward goal: No Change initial session PLAN: Assigned homework/practice of the following: Behavioral Analysis, Effective Communication, Self-Compassion, Tolerating Distress, and Self/Other-Soothing, Relationship Counseling.CL and RI will use Self-Soothing techniques with each other when one is triggered by PTSD syms. Continue psychotherapy Current Service Plan Service Plan Mental Health To provide counseling to minimize symptoms of depression and anxiety Client's symptoms will decrease by 10% over the next 6 month indicated by the PHQ-9 and PETE-7 results Current Care Plan There are no care plans that you recently modified to display for this patient. Next appointment: Scheduled next appointment for 04-05-23 at [facility] Work Phone: [phone]) 204-470612-01-2023 History of Present illness Narrative* Ramses Allen LPC - 03/25/2023 11:11 AM EST Nida Francis engaged in a telehealth session via PHONE with this provider practicing within the [facility]. The identity of Nida was verified by their date of , (1980), and last fourdigits of their social security number, ([id number]). The provider demonstrated that confidentially was preserved at their location. Nida was informedthat they were responsible for ensuring confidentially was secured at their location. Nida's location was documented for emergency purposes. Nida was informed of the necessary steps that would occur if an emergency was to occur or technology failed during session. COUNSELING PROGRESS NOTE Nida Francis is a 42 year old female here today for Individual Counseling . PC provided validation, supportive listening, empathetic and reflective statements as client described current stressors. PC provided client with various community resources to assist with finding housing for herself: [place], [place] 8 , Section * rent to own program [employer] housing and identified affordable efficiencies/studio s available in [place]. PC educated client on codependency and gas lighting behaviors. PC helped client to explore how stress and emotional distress may affect client physically. SUBJECTIVE: Client appeared sad or depressed and irritated or angry. Evaluated Safety and risk: N/A. OBJECTIVE: Assessment of Mood: anxiety and depressed mood Discussed client's use of CBT and Solution Focused Therapy. Goal from ISSP addressed during this session: Increase ability to manage anxiety and restore daily life roles and activities; To provide counseling to minimize symptoms of depression and anxiety ASSESSMENT: Diagnosis: Bipolar II disorder, Panic disorder, PTSD Engaged client in learning Review of Thinking Errors and Cognitive Challenges, Emotional Regulation, and problem solving Progress toward goal: Moderate Improvement PLAN: Assigned homework/practice of the following: Effective Communication and Self-Compassion. Continue psychotherapy Current Service Plan Service Plan Mental Health To provide counseling to minimize symptoms of depression and anxiety Client's symptoms will decrease by 10% over the next 6 month indicated by the PHQ-9 and PETE-7 results Current Care Plan Care Plan: Counseling Care Plan Updates made by Ramses Allen LPC since 03/25/2022 12:00 AM Problem: Anxiety Long-Range Goal: Increase ability to manage anxiety and restore daily life roles and activities Start Date: 11/12/2022 Expected End Date: 11/13/2023 This Visit's Progress: On track Priority: High Task: Assist the client in identifying at least three situations and patterns of thought which precede/maintain anxiety symptoms so the client may respond more adaptively to those situations and thoughts Due Date: 11/13/2023 Priority: High Outcome: Positive Responsible User: Ramses Allen LPC Note: PC will utilize various therapeutic modalities and interventions including CBT and DBT. Goal: Explore and process 2-3 underlying reasons for anxious moods over the next 6 months Start Date: 11/12/2022 Expected End Date: 11/13/2023 This Visit's Progress: On track Priority: High Note: Progress noted through PETE-7 scores. Screening to be completed every 6 months during the service plan review. Goal: Identify, challenge and replace biased, fearful self-talk with reality- based, positive self-talk Start Date: 11/12/2022 Expected End Date: 11/13/2023 This Visit's Progress: On track Priority: High Note: Client will identify negative self talk and beliefs and replace with positive affirmations 1x during each counseling session. Problem: Depression Long-Range Goal: Alleviate depression and restore daily life roles and activities Start Date: 11/12/2022 Expected End Date: 11/13/2023 This Visit's Progress: On track Priority: High Task: Clinician will teach client in the use of behavioral skills training methods such as instruction, modeling, rehearsal, to develop skills and practice, review, and corrective feedback for refining and consolidating use Due Date: 11/13/2023 Priority: High Outcome: Positive Responsible User: Ramses Allen LPC Note: PC will use behavioral activation strategies, DBT and CBT. Goal: Explore and practice at least three evidence-based relaxation activities that reduce depression over the next 6 months Start Date: 11/12/2022 Expected End Date: 12/14/2023 This Visit's Progress: On track Priority: Medium Note: Progress to be monitored through PHQ-9 screenings administered every 6 months during the care plan review. Next appointment: Scheduled next appointment for 04/01/23 at Other: telehealth . [facility] Work Phone: [phone]) 967-398311-10-2023 History of Present illness Narrative* Ramses Allen LPC - 03/04/2023 11:10 AM EST Nida Francis engaged in a telehealth session via PHONE with this provider practicing within the [facility]. The identity of Nida was verified by their date of , (1980), and last fourdigits of their social security number, ([id number]). The provider demonstrated that confidentially was preserved at their location. Nida was informedthat they were responsible for ensuring confidentially was secured at their location. Nida's location was documented for emergency purposes. Nida was informed of the necessary steps that would occur if an emergency was to occur or technology failed during session. COUNSELING PROGRESS NOTE Nida Francis is a 42 year old female here today for Individual Counseling . PC assisted client to explore distraction interventions to assist with conflict in her relationship. PC assisted client toexplore housing options. PC helped client to explore how her symptoms may be impacted by moving from her triggering environment. PC provided client a community resource to look for housing. PC helpedclient to explore a statement about herself and inability to be successful. PC assisted client to explore the facts based on client's accomplishments. PC modeled ways to change negative thoughts and beliefs into positive affirmations.PC helped client to identify a new goal and helped client to explore ways to meet the new goal. SUBJECTIVE: Client appeared neutral or euthymic. Evaluated Safety and risk: N/A. OBJECTIVE: Assessment of Mood: anxiety and depressed mood Discussed client's use of CBT. Goal from ISSP addressed during this session: Increase ability to manage anxiety and restore daily life roles and activities ASSESSMENT: Diagnosis: Bipolar II disorder, PTSD, Panic disorder Engaged client in learning Review of Thinking Errors and Cognitive Challenges and Emotional Regulation Progress toward goal: Moderate Improvement PLAN: Assigned homework/practice of the following: Emotional Regulation and Self-Compassion. Continue psychotherapy Current Service Plan Service Plan Mental Health To provide counseling to minimize symptoms of depression and anxiety Client's symptoms will decrease by 10% over the next 6 month indicated by the PHQ-9 and PETE-7 results Current Care Plan Care Plan: Counseling Care Plan Updates made by Ramses Allen LPC since 03/04/2022 12:00 AM Problem: Anxiety Long-Range Goal: Increase ability to manage anxiety and restore daily life roles and activities Start Date: 11/12/2022 Expected End Date: 11/13/2023 This Visit's Progress: On track Priority: High Task: Assist the client in identifying at least three situations and patterns of thought which precede/maintain anxiety symptoms so the client may respond more adaptively to those situations and thoughts Due Date: 11/13/2023 Priority: High Outcome: Positive Responsible User: Ramses Allen LPC Note: PC will utilize various therapeutic modalities and interventions including CBT and DBT. Goal: Explore and process 2-3 underlying reasons for anxious moods over the next 6 months Start Date: 11/12/2022 Expected End Date: 11/13/2023 This Visit's Progress: On track Priority: High Note: Progress noted through PETE-7 scores. Screening to be completed every 6 months during the service plan review. Goal: Identify, challenge and replace biased, fearful self-talk with reality- based, positive self-talk Start Date: 11/12/2022 Expected End Date: 11/13/2023 This Visit's Progress: On track Priority: High Note: Client will identify negative self talk and beliefs and replace with positive affirmations 1x during each counseling session. Problem: Depression Long-Range Goal: Alleviate depression and restore daily life roles and activities Start Date: 11/12/2022 Expected End Date: 11/13/2023 This Visit's Progress: On track Priority: High Task: Clinician will teach client in the use of behavioral skills training methods such as instruction, modeling, rehearsal, to develop skills and practice, review, and corrective feedback for refining and consolidating use Due Date: 11/13/2023 Priority: High Outcome: Positive Responsible User: Ramses Allen LPC Note: PC will use behavioral activation strategies, DBT and CBT. Goal: Explore and practice at least three evidence-based relaxation activities that reduce depression over the next 6 months Start Date: 11/12/2022 Expected End Date: 12/14/2023 This Visit's Progress: On track Priority: Medium Note: Progress to be monitored through PHQ-9 screenings administered every 6 months during the care plan review. Next appointment: Scheduled next appointment for 03/25/23 at Other: telehealth . [facility] Work Phone: [phone]) 645-138711-03-2023 History of Present illness Narrative* Ramses Allen LPC - 02/25/2023 11:07 AM EDT Nida Francis engaged in a telehealth session via PHONE with this provider practicing within the [facility]. The identity of Nida was verified by their date of , (1980), and last fourdigits of their social security number, ([id number]). The provider demonstrated that confidentially was preserved at their location. Nida was informedthat they were responsible for ensuring confidentially was secured at their location. Nida's location was documented for emergency purposes. Nida was informed of the necessary steps that would occur if an emergency was to occur or technology failed during session. COUNSELING PROGRESS NOTE Nida Francis is a 42 year old female here today for Individual Counseling . PC assisted client to explore how rationalizations of her 's behavior are affecting her mental health symptoms. PC helped client to gain insight into how being belittled, and frequently corrected for her choices is decreasing her independence, confidence and self worth triggering mental health symptoms. PC helped client to explore the statement, I'm always doing stupid things. PC helped client to gain insight into gaslighting behaviors. PC suggested client to look into [facility] to assist while waiting for couples counseling. SUBJECTIVE: Client appeared sad or depressed, nervous or anxious, worried or scared, and guilty or ashamed. Evaluated Safety and risk: N/A. OBJECTIVE: Assessment of Mood: anxiety, depressed mood, and feelings of worthlessness/guilt Discussed client's use of CBT. Goal from ISSP addressed during this session: To provide counseling to minimize symptoms of depression and anxiety ASSESSMENT: Diagnosis: Bipolar II disorder, Panic disorder, PTSD Engaged client in learning Review of Thinking Errors and Cognitive Challenges and Effective Communication Progress toward goal: Moderate Improvement PLAN: Assigned homework/practice of the following: Review of Thinking Errors and Cognitive Challenges andEffective Communication. Continue psychotherapy Current Service Plan Service Plan Mental Health To provide counseling to minimize symptoms of depression and anxiety Client's symptoms will decrease by 10% over the next 6 month indicated by the PHQ-9 and PETE-7 results Current Care Plan Care Plan: Counseling Care Plan Updates made by Ramses Allen LPC since 02/25/2022 12:00 AM Problem: Anxiety Long-Range Goal: Increase ability to manage anxiety and restore daily life roles and activities Start Date: 11/12/2022 Expected End Date: 11/13/2023 This Visit's Progress: On track Priority: High Task: Assist the client in identifying at least three situations and patterns of thought which precede/maintain anxiety symptoms so the client may respond more adaptively to those situations and thoughts Due Date: 11/13/2023 Priority: High Outcome: Positive Responsible User: Ramses Allen LPC Note: PC will utilize various therapeutic modalities and interventions including CBT and DBT. Goal: Explore and process 2-3 underlying reasons for anxious moods over the next 6 months Start Date: 11/12/2022 Expected End Date: 11/13/2023 This Visit's Progress: On track Priority: High Note: Progress noted through PETE-7 scores. Screening to be completed every 6 months during the service plan review. Goal: Identify, challenge and replace biased, fearful self-talk with reality- based, positive self-talk Start Date: 11/12/2022 Expected End Date: 11/13/2023 This Visit's Progress: On track Priority: High Note: Client will identify negative self talk and beliefs and replace with positive affirmations 1x during each counseling session. Problem: Depression Long-Range Goal: Alleviate depression and restore daily life roles and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 three times daily for 28 days. ergocalciferol 50,000 unit capsule (VITAMIN D2, DRISDOL) TAKE 1 CAPSULE BY MOUTH ONCE WEEKLY *EMERGENCY REFILL* amLODIPine (NORVASC) 5 mg tablet Take 1 tablet by mouth once daily. pantoprazole DR (PROTONIX) 40 mg tablet TAKE ONE (1) TABLET BY MOUTH TWICE DAILY LORazepam (ATIVAN) 1 mg tablet Take 1 mg by mouth as needed. aspirin 81 mg chewable tablet Take 1 tablet by mouth once daily. acetaminophen (TYLENOL) 325 mg tablet Take 2 tablets by mouth every 6 hours. atorvastatin (LIPITOR) 80 mg tablet TAKE 1 TABLET BY MOUTH ONCE DAILY iv contrast (will be provided with radiology test) MRI Brain Inject, intravenously, once for 1 dose.No IV access, insert saline lock prior to beginning of sedation, infusion, injection of imaging exam.Discontinue saline lock post exam. If Pt. has a central line or IVAD, may access for administration according to line specific nursing protocol.Once exam is complete flush line and de-access according to line specific nursing protocol in the MR contrast administration guidelines link iv contrast (will be provided with radiology test) MRA Brain Inject, intravenously, once for 1 dose. No IV access, insert saline lock prior to the beginning of sedation, infusion, injection of imaging exam. Discontinue saline lock post exam. If Pt. has a central line or IVAD, may access for administration according to line specific nursing protocol. Once exam is complete flush line and de-access according to line specific nursing protocol in the MR contrast administration guidelines link. tiZANidine HCl (ZANAFLEX) 4 mg capsule Take 1 capsule by mouth three times daily as needed for muscle spasm. (Patient not taking: Reported on 11/03/2022) lidocaine (SALONPAS) 4 % patch Apply 1 Patch as directed once daily. (Patient not taking: Reported on 11/03/2022) iv contrast (will be provided with radiology test) MRA Brain Inject, intravenously, once for 1 dose. 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 - 2016 Brain MRI: acute infarction in the distribution of the right MCA with additional punctate acute infarcts on the contralateral side superimposed on chronic insults. - Brain MRA: multifocal anterior and posterior circulation stenoses with occlusion of the proximal sylvian branch of the right MCA. - Brain angiogram: diffuse saccular and fusiform aneurysms (right more than left) with distal smallvessel neovascularization. - Lumbar puncture: 11 nucleated cells, 94% lymphocytes, with evidence of intrathecal immunoglobulinsynthesis (both oligoclonal bands and [place] were positive). Cytology, flow cytometry, and infectious work-up of the CSF were negative. Serologic infectious work-up revealed a negative HIV, hepatitis panel, and urine histology. - Rheumatologic work-up was significant for an LJ 1:640 in a nucleolar pattern but otherwise produced normal dsDNA, ALPHONSE, RF, complement levels, NIKOS level, Hu, cryoglobulins, ANCA, and a negative lupus anticoagulant panel. ESR and CRP were normal. - Given lymphocytic pleocytosis on LP in setting of saccular aneurysms, one of the leading diagnoses was CNSV - Patient was pulsed with Methylprednisolone 1000mg IV x 3 days and discharged on Prednisone 60mg qD with taper. - Repeat cerebral angiogram showed resolution of saccular and fusiform aneurysms. -2018: - 2017 brain MRI: acute infarct left lentiform nucleus, posterior limb of left internal capsule andleft oneill radiata. 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 Treated with IV solumedrol 1g x3 days. 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 MMF decreased to 1000 mg BID CYC 04/09 - 08/09 MMF started 10/09 Interval history: Stable No headaches No deficits taking cellcpet regularly Current Outpatient Medications Medication Sig mycophenolate Mofetil (CELLCEPT) 500 mg tablet Take 2 tablets by mouth twice daily. lamoTRIgine (LAMICTAL) 150 mg tablet TAKE 1 TABLET BY MOUTH TWICE DAILY metoprolol succinate ER (TOPROL XL) 50 mg 24 hr tablet TAKE 1 TABLET BY MOUTH ONCE DAILY rOPINIRole (REQUIP) 0.25 mg tablet TAKE 1 TABLET BY MOUTH NIGHTLY AT BEDTIME albuterol HFA (PROVENTIL HFA, VENTOLIN HFA) 90 mcg/actuation inhaler INHALE TWO (2) PUFFS EVERY 4 HOURS NEEDED FOR WHEEZING OR SHORTNESS OF BREATH ondansetron orally disintegrating (ZOFRAN ODT) 4 mg disintegrating tablet Take 1 tablet by mouth every 6 hours as needed. gabapentin (NEURONTIN) 100 mg capsule Take 2 capsules by mouth three times daily for 28 days. ergocalciferol 50,000 unit capsule (VITAMIN D2, DRISDOL) TAKE 1 CAPSULE BY MOUTH ONCE WEEKLY *EMERGENCY REFILL* amLODIPine (NORVASC) 5 mg tablet Take 1 tablet by mouth once daily. pantoprazole DR (PROTONIX) 40 mg tablet TAKE ONE (1) TABLET BY MOUTH TWICE DAILY LORazepam (ATIVAN) 1 mg tablet Take 1 mg by mouth as needed. aspirin 81 mg chewable tablet Take 1 tablet by mouth once daily. acetaminophen (TYLENOL) 325 mg tablet Take 2 tablets by mouth every 6 hours. atorvastatin (LIPITOR) 80 mg tablet TAKE 1 TABLET BY MOUTH ONCE DAILY iv contrast (will be provided with radiology test) MRI Brain Inject, intravenously, once for 1 dose.No IV access, insert saline lock prior to beginning of sedation, infusion, injection of imaging exam.Discontinue saline lock post exam. If Pt. has a central line or IVAD, may access for administration according to line specific nursing protocol.Once exam is complete flush line and de-access according to line specific nursing protocol in the MR contrast administration guidelines link iv contrast (will be provided with radiology test) MRA Brain Inject, intravenously, once for 1 dose. No IV access, insert saline lock prior to the beginning of sedation, infusion, injection of imaging exam. Discontinue saline lock post exam. If Pt. has a central line or IVAD, may access for administration according to line specific nursing protocol. Once exam is complete flush line and de-access according to line specific nursing protocol in the MR contrast administration guidelines link. tiZANidine HCl (ZANAFLEX) 4 mg capsule Take 1 capsule by mouth three times daily as needed for muscle spasm. (Patient not taking: Reported on 11/03/2022) lidocaine (SALONPAS) 4 % patch Apply 1 Patch as directed once daily. (Patient not taking: Reported on 11/03/2022) iv contrast (will be provided with radiology test) MRA Brain Inject, intravenously, once for 1 dose. No IV access, insert saline lock prior to the beginning of sedation, infusion, injection of imaging exam. Discontinue saline lock post exam. If Pt. has a central line or IVAD, may access for administration according to line specific nursing protocol. Once exam is complete flush line and de-access according to line specific nursing protocol in the MR contrast administration guidelines link. (Patient not taking: Reported on 11/03/2022) iv contrast (will be provided with radiology test) MRI Brain Inject, intravenously, once for 1 dose.No IV access, insert saline lock prior to beginning of sedation, infusion, injection of imaging exam.Discontinue saline lock post exam. If Pt. has a central line or IVAD, may access for administration according to line specific nursing protocol.Once exam is complete flush line and de-access according to line specific nursing protocol in the MR contrast administration guidelines link (Patient not taking: Reported on 11/03/2022) iv contrast (will be provided with radiology test) MRI Brain Inject, intravenously, once for 1 dose.No IV access, insert saline lock prior to beginning of sedation, infusion, injection of imaging exam.Discontinue saline lock post exam. If Pt. has a central line or IVAD, may access for administration according to line specific nursing protocol.Once exam is complete flush line and de-access according to line specific nursing protocol in the MR contrast administration guidelines link (Patient not taking: Reported on 11/03/2022) iv contrast (will be provided with radiology test) MRA Brain Inject, intravenously, once for 1 dose. No IV access, insert saline lock prior to the beginning of sedation, infusion, injection of imaging exam. Discontinue saline lock post exam. If Pt. has a central line or IVAD, may access for administration according to line specific nursing protocol. Once exam is complete flush line and de-access according to line specific nursing protocol in the MR contrast administration guidelines link. (Patient not taking: Reported on 11/03/2022) No current facility-administered medications for this visit. 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 Hyperlipidemia Impaired Functional Mobility, Balance, Gait, and Endurance Leukocytosis Sensorineural Hearing Loss, Bilateral Obesity, Class I, Bmi 30-34.9 Cannabis Dependence ([facility]) Unspecified Mood (Affective) Disorder (Hcc) Borderline Personality Disorder (Hcc) Obesity, Class II, Bmi 35-39.9 PAST MEDICAL HISTORY Diagnosis Date Asthma History of vasculitis Pneumonia Psychiatric disorder anxiety, bi-polar Restless leg syndrome Stroke ([facility]) 11/2015 FAMILY HISTORY Problem Relation Age of Onset Hypertension Mother Depression Mother Hypertension Father Depression Father other (crohns) Maternal Grandmother Cancer Paternal Grandfather Breast Cancer Other 50 Social History Tobacco Use Smoking status: Every Day Packs/day: 1.00 Years: 13.00 Total pack years: 13.00 Types: Cigarettes Smokeless tobacco: Never Vaping Use Vaping Use: Never used Substance Use Topics Alcohol use: No Drug use: Yes Types: Marijuana Comment: weekly Review of Systems CONSTITUTION: Negative for: Weight loss or gain, Fever. Chills, Night sweats HEENT: Negative for: Nosebleeds, Mouth sores, Trouble swallowing, Dry mouth RESPIRATORY: Negative for: Cough, Shortness of breath, Pain with breathing, Coughing up blood GASTROINTESTINAL: Negative for: Melena, Diarrhea, Abdominal pain, Heartburn, MUSCULOSKELETAL: Negative for: Arthralgias, Myalgias, Muscle weakness, Joint swelling, Morning stiffness in joints NEUROLOGICAL: Negative for: Headaches, Numbness, Memory loss, SKIN: Negative for: Rashes, Sun sensitive rashes, Skin color changes, Hair loss, Nail changes EYES: Negative for: Eye pain, Eye redness, Visual disturbance, Eye dryness CARDIOVASCULAR: Negative for: Chest pain, Leg swelling, Arrhythmia, Presyncope GENITOURINARY: Negative for: Dysuria, Hematuria, Ulceration HEMATOLOGIC/LYMPHATIC: Negative for: Swollen glands PHYSICAL EXAM GENERAL APPEARANCE: WD/WN, NAD. Appropriate grooming. VITALS: Blood pressure 123/71, pulse 77, temperature 36.1 C (97 F), temperature source Temporal, weight 96.9 kg (213 lb 9.6 oz), last menstrual period 02/23/2022. SKIN: warm and dry, no rash, normal turgor EYES: EOMI, PERRLA, no conjunctival injection or icterus CHEST: clear to percussion/auscultation HEART: RRR, Nl S1,S2 ABDOMEN: soft, non-tender MUSCULOSKELETAL: Gait wnl w/o assistive devices. 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) (primary encounter diagnosis) (I63.513) 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) (Z86.73) History of CVA (cerebrovascular accident) (Z79.899) On mycophenolate mofetil therapy Clinically in remission Need to update MRI/MRA Keep cellcept Labs every 3 months Follow up in 3 months Office Visit on 11/03/22 MRI BRAIN WO/W IVCON MRA BRAIN WO/W IVCON Katie Armas MD documented [facility] History of Present illness Narrative* Fiorella Alvarado APRN,ADMINISTRATIVE RESOURCES ASSOCIATE - 11/04/2022 11:10 AM EDT Nida Francis engaged in a telehealth session via PHONE with this provider practicing within the [facility]. The identity of Nida Francis was verified by his/her date of , (1980), and last four digits of his/her social security number, ([id number]). The provider demonstrated that confidentially was preserved at his/her location. Nida Francis was informed he/she was responsible for ensuring confidentially was secured at his/her location. Puneet's location was documented for emergency purposes. Nida Francis was informed of the necessarysteps that would occur if an emergency was to occur or technology failed during session. Chief Complaint Patient presents with Follow Up Telehealth (Audio) Medication Management SUBJECTIVE: Nida Francis is a 41 year old female here for follow up visit. Last seen by this provider July 2022 where medication was continued. History of bipolar 2, PETE, PTSD, and panic. Recently in ED for abdomina pain but left before being seen. States that physical health has been a struggle; difficulty keeping food down. Recently met with PCP; had restart taper of Lamictal from him. Now at regular dose. Reports being on full dose for almost two weeks; previously three weeks for taper. Reports mental health has started to improved; back to work. Reports improvement in appetite if avoiding spicy food/red sauce. Finds subs a safe food. Denies recent depressive episodes; focused on physical health. My mental health has been fine. Reports anxiety has been manageable and mood has been stable. Passive SI when pain is high; denies plan or intent. Denies SIB. Denies recent irritability; denies aggression/HI. States that sleep has been stable beyond occasional waking from stomach pain; able to fall back to sleep. Denies psychosis. Seeing PCP for dizzy spells after N/V. Denies syncope/falls. Only over last two weeks. Current Tx: Lamictal 150 BID for mood stability (refills on file; aware of risk without taper) Ativan 1mg daily PRN (#10) (Denies need for refill at this time) OARRS REVIEWED by Fiorella Alvarado, DONNIE,ADMINISTRATIVE RESOURCES ASSOCIATE on 11/04/2022 11/03/2022 06/03/2022 1 Gabapentin 100 Mg Capsule 180.00 30 Roy [facility] [id number] PAST PSYCHIATRIC HISTORY: 1. Past psychiatric hospitalizations including substance abuse: Dozen times: Last was three years ago. SI related. Hospitalized 02/18-02/20 2019 at [facility] for SI. Rehab 10-12y ago; marijuana. 2. Past psychiatric diagnosis: Bipolar/Anxiety 3. Past suicide attempts/OD: Endorses OD but not take seriously SIB-cut teenage years 4. Past treatment provider(s): Kori Martinez 5. Past medication trials: Zoloft, Depakote, [place], Wellbutrin, Historical information. Social/Living/Relationships: Lives in her own home with . Has a friend Debbie who is supportiveand mother is supportive. Client talks to mother on the phone frequently. One child; trans-moved with father. I came from loving and supportive family. I ws the fat girl in school so not well liked. I have two younger sister and when she joined it came to a head. She was popular. Rolelr coaster of bad emotions. Occupation/Education/Income: Endorses good test scores/ didn't apply self. Graduated summer after he class. SSDI for mental health for the past 8 years. Working at [employer] 1 year. 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 PCP/Specialist(s): Dr Ely at [facility]. Hx of medication changes: 02/22/20: Decrease ativan 1 mg daily prn to # 15. 10/25/19 Increase Lamictal to 150 mg BID. Interval Substance Use: Continues with marijuana; decreased due to illness. Denies recent alcohol consumption. Cigarettes continue. 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 Social History Substance and Sexual Activity Drug Use Yes Frequency: 1.0 times per week Types: marijuana Comment: 02/17/21 once a week on average, yesterday smoked more History Smoking Status Every Day Packs/day: 0.75 Years: 26.00 Types: Cigarettes Smokeless Tobacco Never ROS: (03579- Include 2-9 ROS) General: negative Neurological: negative Psychiatric: anxiety and sleep disturbance Denies HI and Suicidal thoughts OBJECTIVE: Lab results (if available, otherwise theodore n/a): Wt Readings from Last 3 Encounters: 05/31/22 230 lb 9.6 oz (104.6 kg) 03/30/19 201 lb 6.4 oz (91.4 kg) 02/27/19 211 lb 12.8 oz (96.1 kg) VITALS: 05/31/2022 3:40 PM Weight 230 lb 9.6 oz (104.6 kg) BP 128/72 Last menstrual period 02/02/2019, not currently . There is no height or weight on file to calculate BMI. MENTAL STATUS EXAM: Appearance: JIMENA due to phone appointment Demeanor/Activity: Cooperative and Engaged Psychomotor Activity: N/A Speech: Regular Rate, Regular Rhythm, and Normal Volume Thought Process: Goal-Directed/Linear and Coherent Orientation: Oriented Thought Content/Perception: No Abnormal Thought Content and No Perceptual Distortions Mood: Euthymic Affect - Range: JIMENA due to phone appointment Affect - Other: JIMENA due to phone appointment Behavior/Functioning: JIMENA due to phone appointment Abnormal Movements: No -denies uncontrollable/abnormal movements Suicidal/Homicidal Thoughts: Denies homicidal thoughts and Passive suicidal thoughts Cognition: Intact Insight: Moderate insight Judgment: No impairment SAFETY RISK ASSESSMENT: Acute: Low risk of harm to self and/or others Chronic: Low risk of harm to self and/or others IMPRESSION: Nida Francis is a 41 year old female presenting for follow up visit today. Client presents with relatively stable mood since restart of medication with assistance of PCP for taper. Reports up to full dose without concerning SE. Does not appear to have concerning symptoms of anxiety, depression, or bonnie. Endorses passive SI when pain is high but denies plan or intent; future-oriented. Denies homicidal ideation/self-harm. Does not appear to be experiencing AVTH nor appears internally stimulated. No delusions noted or expressed. Denies any recent outburst, violence, aggression, or anger. Continues working with PCP for dizziness and N/V issues; scheduled Tuesday. Reports continued administration and no side effects noted from current medication regimen; will continue current medication to minimize risk of decompensation. No acute safety concerns apparent at this time. Appears appropriate for outpatient care. Follow-up in one month. Diagnoses: F31.81 Bipolar II disorder ([facility]) Plan : LAMOTRIGINE 150 MG TABLET - Take 1 Tablet by mouth 2 (two) times daily for 60 days F41.1 Generalized anxiety disorder Plan : LORAZEPAM 1 MG TABLET - Take 1 Tablet by mouth once daily as needed for anxiety (take 1 tablet daily as needed for anxiety) for up to 30 days F41.0 Panic disorder Plan : LORAZEPAM 1 MG TABLET - Take 1 Tablet by mouth once daily as needed for anxiety (take 1 tablet daily as needed for anxiety) for up to 30 days F43.10 Posttraumatic stress disorder Plan : LORAZEPAM 1 MG TABLET - Take 1 Tablet by mouth once daily as needed for anxiety (take 1 tablet daily as needed for anxiety) for up to 30 days RECOMMENDATIONS/TREATMENT PLAN : 1). [x] Medication: Discussed risks, side effects, benefits and alternatives to prescribed medication: Medication: Lamictal 150 BID for mood stability (refills on file; aware of risk without taper) Ativan 1mg daily PRN (#10) Plan: Continues counseling Menstrual cycle monitor with OBGYN RBA: R/B/A to treatment with Lamictal were discussed including common and severe side effects not limited to but including: maternal and risks (and not to become on psychotropic medicationswithout consulting provider), anticholinergic effects, risk of impaired coordination, rare risk of Bill Anant syndrome, and sedation. Pt verbalized understanding and agrees to proceed with this plan. Using for clear dx of bipolar . R/B/A to treatment with Ativan were discussed including common and severe side effects not limited to but including: anticholinergic effects, risk of impaired memory and concentration, risk of worsening depression, ability to potentiate the effects of alcohol, sedation, tolerance, and dependence. hypotension, , ataxia, incoordination, somnolence,dizziness, memory impairment, dysarthria, upper respiratory infection, irritability, decreased libido, respiratory depression, fatigue; and less commonly neutropenia, depression, suicidal thoughts, delirium, liver failure. Please note that tolerance, dependence can develop after chronic use of benzodiazepines (> 4 weeks). Withdrawal can also occur if the medication is discontinued abruptly or tapered too quickly. Talk to your doctor before using this medicine in combination with other sedating agents or respiratory depressants such as opioidsand barbiturates and alcohol Pt was advised not to drive, operate dangerous equipment, or make serious decisions while using these medications. Pt verbalized understanding and agrees to proceed with this plan. Patient informed of the following requirements for benzodiazepine treatment. There will not be any early refills The dose will not be increased over the phone Do not give it to anyone and keep it locked and away from children Do not suddenly discontinue the medication. Controlled medications will not be replaced if lost, stolen, damaged or not taken as prescribed Controlled medication prescriptions can only be obtained at an appointment Follow up every 3 months minimum is required by law to receive controlled medications OARRS will be checked regularly. Occasional urine Tox Screen may be ordered and if pt does not comply, the controlled medication will be stopped. 2). Referrals/Psychotherapy follow up/Co-management with other providers [] Primary care: [] [facility] at [facility] [] Alcohol/Drug treatment: [] Psychoeducation/Counseling [] Other: 3). [x] Emergency Contact Plan: Patient understands to call Mobile Crisis at [phone], call 911, or go to the nearest ER as appropriate in case of thoughts of harm to self or others, or acute onset of intolerable side effects. 4.) [x] Physician/LDR RN Order: See PharmD , option trader to document data and make observations of the patient, including observations of physical and mental health symptoms, medication response, side effects and adherence, as well as education. RN will assess patient's health status, provide educationwith pill boxes and/or administer long-acting injections per orders. documented in this encounterWhite [facility] Work Phone: 1(121) 566-485207-03-2023 Miscellaneous Notes* Telephone Encounter - Salazar Lynch RN - 10/25/2022 12:13 PM EDT Called pateint, unable to leave voicemail. Sent a [employer] message regarding labs. Salazar Lynch RN * Telephone Encounter - Salazar Lynch RN - 10/05/2022 8:45 AM EDT Most recent Rheumatology visit: 08/21/2020 (with Katie Armas) Recent Office Visits - This Specialty 08/21/2020 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 DRIVER vasculitis (HCC) Rheumatology Katie Vick MD 02/21/2020 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 DRIVER vasculitis (HCC) Rheumatology Katie Vick MD 10/05/2019 Vasculitis, 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) Rheumatology Alyssa Cisneros, LDR RN.ADMINISTRATIVE RESOURCES ASSOCIATE Upcoming Rheumatology Appointments - Next 365 Days No appointments to display CBC: CBC Latest Ref Rng & Units 07/09/2022 08/17/2022 WBC 3.70 - 11.00 k/uL 7.33 13.02(H) HEMOGLOBIN 11.5 - 15.5 g/dL 13.0 15.6(H) HEMOGLOBIN TOTAL, WHOLE BLOOD 12 - 16 g/dL - - HEMATOCRIT 36.0 - 46.0 % 38.7 44.6 PLATELETS 150 - 400 k/uL 203 272 ABS NEUT (ANC) 1.45 - 7.50 k/uL - 8.66(H) ABS LYM 1.2 - 3.4 k/uL - - ABS LYMPH 1.00 - 4.00 k/uL - 2.75 Vitamin D: Vitamin D Latest Ref Rng & Units 06/13/2019 07/09/2022 VITAMIN D 25 HYDROXY 31.0 - 80.0 ng/mL 64.6 61.2 LFT: CMP Latest Ref Rng & Units 07/09/2022 08/17/2022 SODIUM 136 - 144 mmol/L 137 130(L) POTASSIUM 3.7 - 5.1 mmol/L 4.2 3.6(L) CHLORIDE 97 - 105 mmol/L 104 87(L) CO2 22 - 30 mmol/L 23 26 GLUCOSE 74 - 99 mg/dL 96 117(H) BUN 7 - 21 mg/dL 9 49(H) CREATININE 0.58 - 0.96 mg/dL 0.81 1.43(H) CALCIUM, TOTAL 8.5 - 10.2 mg/dL 9.4 10.0 AST 13 - 35 U/L 14 - ALT 7 - 38 U/L 18 46(H) ALKALINE PHOSPHATASE 34 - 123 U/L 71 77 Hepatic Function: Creatinine: Creatinine Latest Ref Rng & Units 07/09/2022 08/17/2022 CREAT 0.58 - 0.96 mg/dL 0.81 1.43(H) ESR/CRP: None on file in the last 6 months Uric Acid: None on file in the last 6 months Open Standing (Multiple Instance) Lab Orders None Open Future (Single Instance) Lab Orders None Requested Prescriptions Refused Prescriptions Disp Refills mycophenolate Mofetil (CELLCEPT) 500 mg tablet [Pharmacy Med Name: MYCOPHENOLATE 500 MG TABLET 500 Tablet] 120 tablet 10 Sig: TAKE 2 TABLETS BY MOUTH TWICE DAILY Refused By: SALAZAR LYNCH Reason for Refusal: Patient needs appointment documented in this encounterCh[facility] History of Present illness Narrative* Ramses Allen LPC - 10/22/2022 11:21 AM EDT Nida Francis engaged in a telehealth session via VIDEO with this provider practicing within the [facility]. The identity of Nida was verified by their date of , (1980), and last fourdigits of their social security number, ([id number]). The provider demonstrated that confidentially was preserved at their location. Ndia was informedthat they were responsible for ensuring confidentially was secured at their location. Nida's location was documented for emergency purposes. Nida was informed of the necessary steps that would occur if an emergency was to occur or technology failed during session. COUNSELING PROGRESS NOTE Nida Francis is a 41 year old female here today for Individual Counseling . PC completed an emotional check-in. Client states feeling stressed from an unknown physical ailment. PC assisted client inidentifying a pattern of repeated physical symptoms which occur monthly around her menstrual cycle.Client reports an inability to take her medications. PC assisted client in problem solving and using effective communication to advocate for her needs. PC supported client as she processed her fears of finances, inability to work and worry surrounding her employment for frequently missed hours.PC helped client gain insight into follow up appointments with her psychiatrist, PCP and OBGYN. PC provided supportive listening, validation and reflective responses as client described current relationship stressors with family and friends. PC helped client to explore various options for social activities to assist with symptom management. SUBJECTIVE: Client appeared neutral or euthymic. Evaluated Safety and risk: N/A. OBJECTIVE: Assessment of Mood: anxiety and depressed mood Discussed client's use of CBT and Solution Focused Therapy. Goal from ISSP addressed during this session: To provide counseling to minimize symptoms of depression and anxiety ASSESSMENT: Diagnosis: No diagnosis found. Engaged client in learning Emotional Regulation, Effective Communication, and Self-Compassion Progress toward goal: Moderate Improvement PLAN: Assigned homework/practice of the following: Effective Communication. Continue psychotherapy Current ISSP: Service Plan Mental Health To provide counseling to minimize symptoms of depression and anxiety Client's symptoms will decrease by 10% over the next 6 month indicated by the PHQ-9 and PETE-7 results Next appointment: Scheduled next appointment for 11/12/22 at Other: telehealth . documented in this encounterUn[facility] Work Phone: [phone]) 240-284106-09-2023 History of Present illness Narrative* Ramses Allen LPC - 10/01/2022 11:09 AM EDT Nida Francis engaged in a telehealth session via VIDEO with this provider practicing within the [facility]. The identity of Nida was verified by their date of , (1980), and last fourdigits of their social security number, ([id number]). The provider demonstrated that confidentially was preserved at their location. Nida was informedthat they were responsible for ensuring confidentially was secured at their location. Nida's location was documented for emergency purposes. Nida was informed of the necessary steps that would occur if an emergency was to occur or technology failed during session. COUNSELING PROGRESS NOTE Nida Francis is a 41 year old female here today for Individual Counseling . PC assisted client to explore recent intensive physical and mental health symptoms. PC assisted client in exploring triggers and the possible reinforcement of symptoms of anxiety. Client gained insight into not taking anxiety medication for several months may be partial cause for increased anxiety symptoms. PC helped client explore cognitions and beliefs surrounding not taking medication and being engaged in routine PCP appointments. 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 PC assisted client in problem solving ways to decrease non essential, impulse buying which is adding toclient's stress over financial issues. PC reminded client of missed doctor appointment, which client was not aware of; encouraged client to reschedule the missed appointment. PC encouraged client to also make an appointment with her PCP. SUBJECTIVE: Client appeared neutral or euthymic. Evaluated Safety and risk: N/A. OBJECTIVE: Assessment of Mood: anxiety and depressed mood Discussed client's use of CBT and Solution Focused Therapy. Goal from ISSP addressed during this session: To provide counseling to minimize symptoms of depression and anxiety ASSESSMENT: Diagnosis: Bipolar II disorder, PTSD, Panic disorder, Unspecified mood disorder. Engaged client in learning Review of Thinking Errors and Cognitive Challenges, Emotional Regulation, and Mindfulness Progress toward goal: Moderate Improvement PLAN: Assigned homework/practice of the following: Effective Communication and reschedule psychiatry and PCP appointments, take medication as directed . Continue psychotherapy Current ISSP: Service Plan Mental Health To provide counseling to minimize symptoms of depression and anxiety Client's symptoms will decrease by 10% over the next 6 month indicated by the PHQ-9 and PETE-7 results Next appointment: Scheduled next appointment for 10/22/22 at Other: telehealth . documented in this encounterUn[facility] Work Phone: [phone]) 871-241405-12-2023 History of Present illness Narrative* Ramses Allen LPC - 09/03/2022 11:19 AM EDT Nida Francis engaged in a telehealth session via PHONE with this provider practicing within the [facility]. The identity of Nida was verified by their date of , (1980), and last fourdigits of their social security number, ([id number]). The provider demonstrated that confidentially was preserved at their location. Nida was informedthat they were responsible for ensuring confidentially was secured at their location. Nida's location was documented for emergency purposes. Nida was informed of the necessary steps that would occur if an emergency was to occur or technology failed during session. 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 Client states financial hardship is the main source of her stress as shehas overextended herself on behalf of her , whom is not willing to contribute to the bills. PC assisted client to problem solve ways to decrease stressors utilizing community recourses. PC assisted client in ways to manage symptoms by setting limits on others and taking action to control her financial hardship. PC supported client to identify thins that she can control and manage and accept an d release those that she cannot.PC positively reinforced client returning to self care interventions and returning to past daily structured therapeutic activities to manage symptoms. SUBJECTIVE: Client appeared neutral or euthymic. Evaluated Safety and risk: N/A. OBJECTIVE: Assessment of Mood: anxiety and depressed mood Discussed client's use of CBT and DBT. Goal from ISSP addressed during this session: To provide counseling to minimize symptoms of depression and anxiety ASSESSMENT: Diagnosis: Bipolar II disorder Engaged client in learning Review of Thinking Errors and Cognitive Challenges and Effective Communication Progress toward goal: Moderate Improvement PLAN: Assigned homework/practice of the following: Effective Communication. Seek out [facility]) Continue psychotherapy Current ISSP: Service Plan Mental Health To provide counseling to minimize symptoms of depression and anxiety Client's symptoms will decrease by 10% over the next 6 month indicated by the PHQ-9 and PETE-7 results Next appointment: Scheduled next appointment for 09/17/22 at Other: telehealth . [facility] Work Phone: [phone] History of Present illness Narrative* Ramses Allen LPC - 08/06/2022 11:08 AM EDT Nida Francis engaged in a telehealth session via PHONE with this provider practicing within the [facility]. The identity of Nida was verified by their date of , (1980), and last fourdigits of their social security number, ([id number]). The provider demonstrated that confidentially was preserved at their location. Nida was informedthat they were responsible for ensuring confidentially was secured at their location. Nida's location was documented for emergency purposes. Nida was informed of the necessary steps that would occur if an emergency was to occur or technology failed during session. COUNSELING PROGRESS NOTE Nida Francis is a 41 year old female here today for Individual Counseling . PC provided supportivelistening as client described financial stressors. PC supported client to problem solve ways to manage finances and provided community resources to assist. PC modeled effective communication skills to assist client with requesting financial support from her . PC supported client to explore how stressors are affecting the dynamics within her marriage. PC positively reinforced client's use of coping strategies and ability to challenge herself at work. SUBJECTIVE: Client appeared neutral or euthymic. Evaluated Safety and risk: N/A. OBJECTIVE: Assessment of Mood: anxiety and depressed mood Discussed client's use of CBT and DBT. Goal from ISSP addressed during this session: To provide counseling to minimize symptoms of depression and anxiety ASSESSMENT: Diagnosis: Bipolar II disorder, PTSD, Panic disorder Engaged client in learning Exposure and Effective Communication Progress toward goal: Moderate Improvement PLAN: Assigned homework/practice of the following: Mindfulness., effective directive communication, CCCS,asking for a prescription for nutrient supplements Continue psychotherapy Current ISSP: Service Plan Mental Health To provide counseling to minimize symptoms of depression and anxiety Client's symptoms will decrease by 10% over the next 6 month indicated by the PHQ-9 and PETE-7 results Next appointment: Scheduled next appointment for 08/27/22 at Other: telehealth . [facility] Work Phone: [phone] History of Present illness Narrative* Fiorella Alvarado APRN,ADMINISTRATIVE RESOURCES ASSOCIATE - 07/12/2022 8:24 AM EDT Nida Francis engaged in a telehealth session via PHONE with this provider practicing within the [facility]. The identity of Nida Francis was verified by his/her date of , (1980), and last four digits of his/her social security number, ([id number]). The provider demonstrated that confidentially was preserved at his/her location. Nida Francis was informed he/she was responsible for ensuring confidentially was secured at his/her location. Puneet's location was documented for emergency purposes. Nida Francis was informed of the necessarysteps that would occur if an emergency was to occur or technology failed during session. Chief Complaint Patient presents with Follow Up Telehealth (Audio) Medication Management SUBJECTIVE: Nida Francis is a 41 year old female here for follow up visit. Last seen by this provider a month ago where medication was continued. History of bipolar 2, PETE, PTSD, and panic Pretty well. Couple situational stressors; able to manage. Noticed emotional episodes during cycle; increased nausea/vomiting. PCP referred to OBGYN; likely menopause starting. Otherwise, denies recent medication changes. Stable appetite; denies recent N/V. Anxiety increased r/t menstrual cycle and situational stressors; reports manageable. Using ativan appropriately. Denies refills needed. Denies HI/aggression. Sleep off-schedule due to illness; returning to normal. Denies SI/SIB/HI. Endorses [id number] VH and whispers when anxiety was high but denies since. Current Tx: Lamictal 150 BID for mood stability Ativan 1mg daily PRN (#10) OARRS REVIEWED by Fiorella Alvarado, DONNIE,ADMINISTRATIVE RESOURCES ASSOCIATE on 07/12/2022 07/05/2022 06/03/2022 2 Gabapentin 100 Mg Capsule 180.00 30 Roy Alz 06/04/2022 06/03/2022 2 Gabapentin 100 Mg Capsule 180.00 30 Roy Alz 05/31/2022 05/31/2022 1 Lorazepam 1 Mg Tablet 10.00 30 Ra Michael PAST PSYCHIATRIC HISTORY: 1. Past psychiatric hospitalizations including substance abuse: Dozen times: Last was three years ago. SI related. Hospitalized 02/18-02/20 2019 at [facility] for SI. Rehab 10-12y ago; marijuana. 2. Past psychiatric diagnosis: Bipolar/Anxiety 3. Past suicide attempts/OD: Endorses OD but not take seriously SIB-cut teenage years 4. Past treatment provider(s): Kori Martinez 5. Past medication trials: Zoloft, Depakote, [place], Wellbutrin, Historical information. Social/Living/Relationships: Lives in her own home with . Has a friend Debbie who is supportiveand mother is supportive. Client talks to mother on the phone frequently. One child; trans-moved with father. I came from loving and supportive family. I ws the fat girl in school so not well liked. I have two younger sister and when she joined it came to a head. She was popular. Rolelr coaster of bad emotions. Occupation/Education/Income: Endorses good test scores/ didn't apply self. Graduated summer after he class. SSDI for mental health for the past 8 years. Working at [employer] x 1 year. 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 PCP/Specialist(s): Dr Ely at [facility]. Hx of medication changes: 02/22/20: Decrease ativan 1 mg daily prn to # 15. 10/25/19 Increase Lamictal to 150 mg BID. Interval Substance Use: Denies any recent changes; continues with weekly marijuana. Denies other substances. Decreased to less than PPD. 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 Social History Substance and Sexual Activity Drug Use Yes Frequency: 1.0 times per week Types: marijuana Comment: 02/17/21 once a week on average, yesterday smoked more History Smoking Status Every Day Packs/day: 0.75 Years: 26.00 Types: Cigarettes Smokeless Tobacco Never ROS: (63258- Include 2-9 ROS) General: fatigue Neurological: negative Psychiatric: anxiety and depressed mood Denies SI and Denies HI OBJECTIVE: Lab results (if available, otherwise theodore n/a): Wt Readings from Last 3 Encounters: 05/31/22 230 lb 9.6 oz (104.6 kg) 03/30/19 201 lb 6.4 oz (91.4 kg) 02/27/19 211 lb 12.8 oz (96.1 kg) VITALS: 05/31/2022 3:40 PM Weight 230 lb 9.6 oz (104.6 kg) BP 128/72 Last menstrual period 02/02/2019, not currently . There is no height or weight on file to calculate BMI. MENTAL STATUS EXAM: Appearance: JIMEAN due to phone appointment Demeanor/Activity: Cooperative and Engaged Psychomotor Activity: N/A Speech: Regular Rate, Regular Rhythm, and Normal Volume Thought Process: Goal-Directed/Linear and Coherent Orientation: Oriented Thought Content/Perception: No Abnormal Thought Content and No Perceptual Distortions Mood: Euthymic Affect - Range: JIMENA due to phone appointment Affect - Other: JIMENA due to phone appointment Behavior/Functioning: JIMENA due to phone appointment Abnormal Movements: No -denies uncontrollable/abnormal movements Suicidal/Homicidal Thoughts: Denies suicidal thoughts and Denies homicidal thoughts Cognition: Mild impairment Insight: Good insight Judgment: No impairment SAFETY RISK ASSESSMENT: Acute: Low risk of harm to self and/or others Chronic: Low risk of harm to self and/or others IMPRESSION: Nida Francis is a 41 year old female presenting for follow up visit today. Client presents with relatively stable mood. Anxiety and depression appears to have shortly increased related to recent menstrual cycle. Since passing of menstrual cycle, symptoms have been manageable with infrequent use of Ativan. Scheduled with OBGYN to discuss. Does not appear to have concerning symptoms ofmania. Denies suicidal/homicidal ideation/self-harm. Does not appear to be experiencing AVTH nor appears internally stimulated except for one incident after menstrual cycle when anxiety was high. No delusions noted or expressed. Denies any recent outburst, violence, aggression, or anger. Endorses continued administration and no side effects noted from current medication regimen; will continue current medication to minimize decompensation. No acute safety concerns apparent at this time. Appears appropriate for outpatient care. Follow-up in 6 weeks. Diagnoses: F31.81 Bipolar II disorder ([facility]) Plan : LAMOTRIGINE 150 MG TABLET - Take 1 Tablet by mouth 2 (two) times daily for 60 days F41.1 Generalized anxiety disorder F41.0 Panic disorder F43.10 Posttraumatic stress disorder RECOMMENDATIONS/TREATMENT PLAN : 1). [x] Medication: Discussed risks, side effects, benefits and alternatives to prescribed medication: Medication: Lamictal 150 BID for mood stability Ativan 1mg daily PRN (#10) (Denies need for refill at this time) Plan: Continues counseling Menstrual cycle monitor with OBELOY RBA: R/B/A to treatment with Lamictal were discussed including common and severe side effects not limited to but including: maternal and risks (and not to become on psychotropic medicationswithout consulting provider), anticholinergic effects, risk of impaired coordination, rare risk of Bill Anant syndrome, and sedation. Pt verbalized understanding and agrees to proceed with this plan. Using for clear dx of bipolar . R/B/A to treatment with Ativan were discussed including common and severe side effects not limited to but including: anticholinergic effects, risk of impaired memory and concentration, risk of worsening depression, ability to potentiate the effects of alcohol, sedation, tolerance, and dependence. hypotension, , ataxia, incoordination, somnolence,dizziness, memory impairment, dysarthria, upper respiratory infection, irritability, decreased libido, respiratory depression, fatigue; and less commonly neutropenia, depression, suicidal thoughts, delirium, liver failure. Please note that tolerance, dependence can develop after chronic use of benzodiazepines (> 4 weeks). Withdrawal can also occur if the medication is discontinued abruptly or tapered too quickly. Talk to your doctor before using this medicine in combination with other sedating agents or respiratory depressants such as opioidsand barbiturates and alcohol Pt was advised not to drive, operate dangerous equipment, or make serious decisions while using these medications. Pt verbalized understanding and agrees to proceed with this plan. Patient informed of the following requirements for benzodiazepine treatment. There will not be any early refills The dose will not be increased over the phone Do not give it to anyone and keep it locked and away from children Do not suddenly discontinue the medication. Controlled medications will not be replaced if lost, stolen, damaged or not taken as prescribed Controlled medication prescriptions can only be obtained at an appointment Follow up every 3 months minimum is required by law to receive controlled medications OARRS will be checked regularly. Occasional urine Tox Screen may be ordered and if pt does not comply, the controlled medication will be stopped. 2). Referrals/Psychotherapy follow up/Co-management with other providers [] Primary care: [] [facility] [] Alcohol/Drug treatment: [] Psychoeducation/Counseling [] Other: 3). [x] Emergency Contact Plan: Patient understands to call Mobile Crisis at [phone], call 911, or go to the nearest ER as appropriate in case of thoughts of harm to self or others, or acute onset of intolerable side effects. 4.) [x] Physician/LDR RN Order: See PharmD , option trader to document data and make observations of the patient, including observations of physical and mental health symptoms, medication response, side effects and adherence, as well as education. RN will assess patient's health status, provide educationwith pill boxes and/or administer long-acting injections per orders. documented in [facility] Work Phone: [phone] History of Present illness Narrative* Ramses Allen LPC - 07/09/2022 11:03 AM EDT Nida Francis engaged in a telehealth session via PHONE with this provider practicing within the [facility]. The identity of Nida was verified by their date of , (1980), and last fourdigits of their social security number, ([id number]). The provider demonstrated that confidentially was preserved at their location. Nida was informedthat they were responsible for ensuring confidentially was secured at their location. Nida's location was documented for emergency purposes. Nida was informed of the necessary steps that would occur if an emergency was to occur or technology failed during session. COUNSELING PROGRESS NOTE Nida Francis is a 41 year old female here today for Individual Counseling . PC supported client toexplore fears concerning approaching her commercial sales manager as her hours has been decreased. PC assisted client in effective communication strategies through modeling and role play.PC assisted client to explorefears in depth ans helped client identify mind reading behavior that is increasing fears. PC supported client to identify the facts and prepare for various outcomes. PC provided additional coping strategies to manage anxiety during her interaction with her commercial sales manager, such as visualization, practicingresponses, having visuals available to refer to. SUBJECTIVE: Client appeared neutral or euthymic. Evaluated Safety and risk: N/A. OBJECTIVE: Assessment of Mood: anxiety Discussed client's use of CBT and DBT. Goal from ISSP addressed during this session: To provide counseling to minimize symptoms of depression and anxiety ASSESSMENT: Diagnosis: Bipolar II disorder, PTSD,Panic disorder Engaged client in learning Emotional Regulation, Exposure, and Effective Communication Progress toward goal: Moderate Improvement PLAN: Assigned homework/practice of the following: Emotional Regulation, Exposure, and Effective Communication. Continue psychotherapy Current ISSP: Service Plan Mental Health To provide counseling to minimize symptoms of depression and anxiety Client's symptoms will decrease by 10% over the next 6 month indicated by the PHQ-9 and PETE-7 results Next appointment: Scheduled next appointment for 07/30/22 at Other: telehealth . documented in this encounterWhite [facility] Work Phone: [phone]) [phone] History of Present illness Narrative* Felecia Ely MD - 06/28/2022 10:08 PM EST Nida Francis 1980 41 year old female [id number] June 28, 2022 HPI Patient is here for a wellness visit and physical examination has multiple medical problem denies any new complaint no chest pain shortness of breath or abdominal pain. This history of hypertension obesity asthma no chest pain no abdominal pain no shortness of breath history of drug abuse PAST MEDICAL HISTORY Diagnosis Date Asthma History of vasculitis Pneumonia Psychiatric disorder anxiety, bi-polar Restless leg syndrome Stroke (HCC) 11/2015 Social History Tobacco Use Smoking status: Every Day Packs/day: 1.00 Years: 13.00 Pack years: 13.00 Types: Cigarettes Smokeless tobacco: Never Vaping Use Vaping Use: Never used Substance Use Topics Alcohol use: No Drug use: Yes Types: Marijuana Comment: weekly FAMILY HISTORY Problem Relation Age of Onset Hypertension Mother Depression Mother Hypertension Father Depression Father other (crohns) Maternal Grandmother Cancer Paternal Grandfather Breast Cancer Other 50 PAST SURGICAL HISTORY Procedure Laterality Date DENTAL SURGERY HX wisdom teeth LAPAROSCOPY SURG CHOLECYSTECTOMY 08/24/2017 MIDLINE INSERTION/CONSULT 08/21/2016 ORTHOPEDICS SURGERY HX right foot PICC LINE INSERT/CONSULT 12/19/2015 R.O.S negative other than HPI & PMH all other SYS reviewed and negative. Current Outpatient Medications Medication Sig Dispense Refill amLODIPine (NORVASC) 5 mg tablet TAKE 1 TABLET BY MOUTH ONCE DAILY [address] (PROTONIX) 40 mg tablet TAKE ONE (1) TABLET BY MOUTH TWICE DAILY 60 tablet 10 gabapentin (NEURONTIN) 100 mg capsule TAKE 2 CAPSULES BY MOUTH THREE TIMES A DAY 180 capsule 10 ergocalciferol 50,000 unit capsule (VITAMIN D2, DRISDOL) TAKE 1 CAPSULE BY MOUTH ONCE WEEKLY *EMERGENCY REFILL* 4 capsule 10 metoprolol succinate ER (TOPROL XL) 50 mg 24 hr tablet TAKE 1 TABLET BY MOUTH ONCE DAILY 30 tablet 0 rOPINIRole (REQUIP) 0.25 mg tablet TAKE 1 TABLET BY MOUTH NIGHTLY AT BEDTIME 30 tablet 0 atorvastatin (LIPITOR) 80 mg tablet TAKE 1 TABLET BY MOUTH ONCE DAILY *EMERGENCY REFILL* 30 tablet 2 mycophenolate Mofetil (CELLCEPT) 500 mg tablet TAKE 2 TABLETS BY MOUTH TWICE DAILY 120 tablet 10 tiZANidine HCl (ZANAFLEX) 4 mg capsule Take 1 capsule by mouth three times daily as needed for muscle spasm. 12 capsule 0 lidocaine (SALONPAS) 4 % patch Apply 1 Patch as directed once daily. 5 Patch 0 LORazepam (ATIVAN) 1 mg tablet Take 1 mg by mouth as needed. iv contrast (will be provided with radiology test) MRA Brain Inject, intravenously, once for 1 dose. No IV access, insert saline lock prior to the beginning of sedation, infusion, injection of imaging exam. Discontinue saline lock post exam. If Pt. has a central line or IVAD, may access for administration according to line specific nursing protocol. Once exam is complete flush line and de-access according to line specific nursing protocol in the MR contrast administration guidelines link. 1 Each 0 iv contrast (will be provided with radiology test) MRI Brain Inject, intravenously, once for 1 dose.No IV access, insert saline lock prior to beginning of sedation, infusion, injection of imaging exam.Discontinue saline lock post exam. If Pt. has a central line or IVAD, may access for administration according to line specific nursing protocol.Once exam is complete flush line and de-access according to line specific nursing protocol in the MR contrast administration guidelines link 1 Each 0 iv contrast (will be provided with radiology test) MRI Brain Inject, intravenously, once for 1 dose.No IV access, insert saline lock prior to beginning of sedation, infusion, injection of imaging exam.Discontinue saline lock post exam. If Pt. has a central line or IVAD, may access for administration according to line specific nursing protocol.Once exam is complete flush line and de-access according to line specific nursing protocol in the MR contrast administration guidelines link 1 Each 0 iv contrast (will be provided with radiology test) MRA Brain Inject, intravenously, once for 1 dose. No IV access, insert saline lock prior to the beginning of sedation, infusion, injection of imaging exam. Discontinue saline lock post exam. If Pt. has a central line or IVAD, may access for administration according to line specific nursing protocol. Once exam is complete flush line and de-access according to line specific nursing protocol in the MR contrast administration guidelines link. 1 Each 0 lamoTRIgine (LAMICTAL) 150 mg tablet Take 1 tablet by mouth twice daily. 60 tablet 1 aspirin 81 mg chewable tablet Take 1 tablet by mouth once daily. 90 tablet 0 acetaminophen (TYLENOL) 325 mg tablet Take 2 tablets by mouth every 6 hours. 0 albuterol HFA (VENTOLIN HFA) 90 mcg/actuation inhaler Inhale 2 Puffs as instructed every 4 hours asneeded for Wheezing/Shortness of Breath. 1 Inhaler 11 No current facility-administered medications for this visit. DATA: CBC: No results for input(s): WBC, RBC, HB, HCT, PLT, MCV, MCH, MPV, RDW in the last 24 hours. CMP:No results for input(s): NA, K, CHLOR, CO2, BUN, CREAT, GLUC, TPROT, CA, MG, ALBUMIN, TBILI, ALKPHOS, ALT, AST, ANION in the last 24 hours. No results found for this basename: psa Cholesterol, Total (mg/dL) Date Value 10/14/2020 147 HDL Cholesterol (mg/dL) Date Value 10/14/2020 38 LDL Cholesterol (mg/dL) Date Value 10/14/2020 90 Triglyceride (mg/dL) Date Value 10/14/2020 96 Hemoglobin A1C (%) Date Value 10/14/2020 5.5 02/19/2019 5.5 11/10/2017 5.3 11/09/2017 5.2 11/08/2017 5.3 BP 136/78 Pulse 76 LMP 02/23/2022 (Approximate) SpO2 98% PHYSICAL EXAMINATION: General appearance: Well appearing, alert, in no acute distress, well-hydrated, well nourished. Skin: Skin color, texture, turgor normal, no suspicious rashes or lesions Head: Normocephalic, no masses, lesions, tenderness or abnormalities Eyes: Anicteric sclera. Pupils are equally round and reactive to light. Extraocular movements are intact. Ears: External ears normal, canals clear Nose/Sinuses: Nares normal, septum midline, mucosa normal, no drainage or sinus tenderness Oropharynx: Lips, mucosa, and tongue normal, teeth and gums normal, oropharynx normal Neck: Supple, no adenopathy; thyroid symmetric, normal size, no bruits Back: Normal exam Lungs: Lungs clear to auscultation. No wheezing, rhonchi, rales Heart: RRR without murmur, gallop, or rubs. No ectopy Abdomen: Normal abdominal exam, Abdomen soft, non-tender. Bowel sounds normal. No masses, organomegaly Extremities: No deformities, edema, skin discoloration, clubbing or cyanosis. Good capillary refill. Musculoskeletal: No joint swelling, deformity, or tenderness Peripheral pulses: Normal Neuro: No focal deficit/at baseline Feet: Pulses positive No sensory deficit Consultants notes reviewed Most recent CT/CXR reviewed Last EKG reviewed ASSESSMENT/PLAN: 1. Essential hypertension - ICD9: 401.9, ICD10: I10 (primary diagnosis) - good control - Recommended regular aerobic exercise. - Recommend home blood pressure monitoring, to bring results in on next visit - Goal of BP <130/80 2. Cannabis dependence (HCC) - ICD9: 304.30, ICD10: F12.20 Advised to quit 3. Dietary counseling - ICD9: V65.3, ICD10: Z71.3 The patient is asked to make an attempt to improve diet and exercise patterns to aid in medical management of this problem. 4. Mild intermittent asthma without complication - ICD9: 493.90, ICD10: J45.20 Mild intermittent Asthma stable - Avoidance of triggers recommended Felecia Ely MD documented [facility] NoteHNO ID: [id number] Author: RT Christine(R) Service: Radiology Author Type: Technologist Type: Progress Notes Filed: 06/21/2022 12:18 PM Note Text: Radiology Service Progress Note PATIENT NAME: Nida Francis DATE OF SERVICE: June 21, 2022 TIME: 12:11 PM PATIENT IDENTITY VERIFICATION COMPLETED USING TWO (2) IDENTIFIERS: Name and Date of confirmed by patient verbally and Name and Date of confirmed by identification band. FALL SCREENING: Has the patient had 2 falls in the last year or 1 fall with injury or currently using an Ambulatory Assistive Device (Walker, Cane, Wheelchair, Crutches, etc.)? Emergency Room Patient: Screened in ED PATIENT GENDER DATA: Female. status: : No status: NO. PATIENT RELEVANT IMPLANT DATA REVIEWED: Not Applicable RADIOLOGY DEPARTMENT: CT; Exam(s) Completed: Abdomen/Pelvis PERIPHERAL IV DATA: Inpatient: see LDA documentation SIGNED BY: RT Christine(R) June 21, 2022 12:11 [facility]02-27-2023 NoteHNO ID: [id number] Author: RT Lex(Carito) Service: ? Author Type: Technologist Type: Progress Notes Filed: 06/21/2022 9:47 AM Note Text: Radiology Service Progress Note PATIENT NAME: Nida Francis DATE OF SERVICE: June 21, 2022 TIME: 9:47 AM PATIENT IDENTITY VERIFICATION COMPLETED USING TWO (2) IDENTIFIERS: Name and Date of confirmed by patient verbally. FALL SCREENING: Has the patient had 2 falls in the last year or 1 fall with injury or currently using an Ambulatory Assistive Device (Walker, Cane, Wheelchair, Crutches, etc.)? Emergency Room Patient: Screened in ED PATIENT GENDER DATA: Female. status: : No status: NO. PATIENT RELEVANT IMPLANT DATA REVIEWED: Not Applicable RADIOLOGY DEPARTMENT: General X-ray: Exam(s) Completed: Chest X-Ray PERIPHERAL IV DATA: Not applicable SIGNED BY: RT Lex(Carito) June 21, 2022 9:47 [facility]02-27-2023 History of Present illness Narrative* RT Lex(R) - 06/21/2022 9:47 AM EST Radiology Service Progress Note PATIENT NAME: Nida Francis DATE OF SERVICE: June 21, 2022 TIME: 9:47 AM PATIENT IDENTITY VERIFICATION COMPLETED USING TWO (2) IDENTIFIERS: Name and Date of confirmedby patient verbally. FALL SCREENING: Has the patient had 2 falls in the last year or 1 fall with injury or currently using an Ambulatory Assistive Device (Walker, Cane, Wheelchair, Crutches, etc.)? Emergency Room Patient: Screened in ED PATIENT GENDER DATA: Female. status: : No status: NO. PATIENT RELEVANT IMPLANT DATA REVIEWED: Not Applicable RADIOLOGY DEPARTMENT: General X-ray: Exam(s) Completed: Chest X-Ray PERIPHERAL IV DATA: Not applicable SIGNED BY: RT Lex(R) June 21, 2022 9:47 AM documented in this encounterCh[facility]02-17-[facility] History of Present illness Narrative* Ramses Allen, TIGHT COOPER - 06/11/2022 11:08 AM EST Nida Francis engaged in a telehealth session via PHONE with this provider practicing within the [facility]. The identity of Nida was verified by their date of , (1980), and last fourdigits of their social security number, ([id number]). The provider demonstrated that confidentially was preserved at their location. Nida was informedthat they were responsible for ensuring confidentially was secured at their location. Nida's location was documented for emergency purposes. Nida was informed of the necessary steps that would occur if an emergency was to occur or technology failed during session. COUNSELING PROGRESS NOTE Nida Francis is a 41 year old female here today for Individual Counseling. PC provided supportive listening as client as described current stressors. PC assisted client in identifying ways to support family members without enabling behaviors. PC assisted client in identifying ways to decrease a conflict cycle, assisting those in the cycle to have a active role to decrease the escalation of inappropriate and abusive behavior. PC educated client in self assessment/self monitoring during stressful moments and knowing when to engage in actions to decrease inappropriate behaviors. SUBJECTIVE: Client appeared neutral or euthymic and nervous or anxious. Evaluated Safety and risk: N/A. OBJECTIVE: Assessment of Mood: anxiety and depressed mood Discussed client's use of CBT. Goal from ISSP addressed during this session: To provide counseling to minimize symptoms of depression and anxiety ASSESSMENT: Diagnosis: Bipolar II disorder, PTSD, Panic Disorder Engaged client in learning Review of Thinking Errors and Cognitive Challenges Progress toward goal: Moderate Improvement PLAN: Assigned homework/practice of the following: Exposure, Effective Communication, and discussion withfamily members with interventions and assigning of roles to decrease the conflict cycle . Continue psychotherapy Current ISSP: Service Plan Mental Health To provide counseling to minimize symptoms of depression and anxiety Client's symptoms will decrease by 10% over the next 6 month indicated by the PHQ-9 and PETE-7 results Next appointment: Scheduled next appointment for 06/25/22 at Other: telehealth . [facility] Work Phone: [phone]) 936-758602-06-2023 History of Present illness Narrative* Fiorella Alvarado APRN,ADMINISTRATIVE RESOURCES ASSOCIATE - 05/31/2022 3:30 PM EST Chief Complaint Patient presents with Follow Up Medication Management SUBJECTIVE: Nida Francis is a 41 year old female here for follow up visit. Patient of Kori Martinez contacted for a third encounter with this patient. Last seen by previous provider in July 2021 and this provider in December 2021 where medication was continued. Since then, follows-up missed. History of bipolar 2, PETE, PTSD, and panic. Child and living with her; all started new jobs. Working at [employer]. Recently ill; sinus infection with PMS symptoms. Denies any new medications. Decreased appetite due to illness; mostly snacking. Infrequent irritability; denies HI or violence. Recent depressive episodes; I overcame. Denies SI/SIB. Anxiety is manageable mostly. Infrequent ativan use. Denies psychosis except when high fever hearing voices of past. Mood: I have been good Sleep/Energy: Changed due to early rides; still sleeping every night. Current Tx: Lamictal 150 BID for mood stability Ativan 1mg daily PRN (#10) -refill not needed at this time OARRS: 05/06/2022 04/09/2022 2 Gabapentin 100 Mg Capsule 180.00 30 Roy Alz 12/01/2021 12/01/2021 1 Lorazepam 1 Mg Tablet 10.00 30 Ra Kul PAST PSYCHIATRIC HISTORY: 1. Past psychiatric hospitalizations including substance abuse: Dozen times: Last was three years ago. SI related. Hospitalized 02/18-02/20 2019 at [facility] for SI. Rehab 10-12y ago; marijuana. 2. Past psychiatric diagnosis: Bipolar/Anxiety 3. Past suicide attempts/OD: Endorses OD but not take seriously SIB-cut teenage years 4. Past treatment provider(s): Kori Martinez 5. Past medication trials: Zoloft, Depakote, [place], Wellbutrin, Historical information. Social/Living/Relationships: Lives in her own home with . Has a friend Debbie who is supportiveand mother is supportive. Client talks to mother on the phone frequently. One child; trans-moved with father. I came from loving and supportive family. I ws the fat girl in school so not well liked. I have two younger sister and when she joined it came to a head. She was popular. Rolelr coaster of bad emotions. Occupation/Education/Income: Endorses good test scores/ didn't apply self. Graduated summer after he class. SSDI for mental health for the past 8 years. Working at [employer] x 1 year. 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 PCP/Specialist(s): Dr Ely at [facility]. Hx of medication changes: 02/22/20: Decrease ativan 1 mg daily prn to # 15. 10/25/19 Increase Lamictal to 150 mg BID. Interval Substance Use: Infrequent marijuana; using cigarettes 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 Social History Substance and Sexual Activity Drug Use Yes Frequency: 1.0 times per week Types: marijuana Comment: 02/17/21 once a week on average, yesterday smoked more History Smoking Status Every Day Packs/day: 0.75 Years: 26.00 Types: Cigarettes Smokeless Tobacco Never ROS: (20914- Include 2-9 ROS) General: negative Neurological: negative Psychiatric: anxiety and depressed mood Denies SI and Denies HI OBJECTIVE: Lab results (if available, otherwise theodore n/a): Wt Readings from Last 3 Encounters: 05/31/22 230 lb 9.6 oz (104.6 kg) 03/30/19 201 lb 6.4 oz (91.4 kg) 02/27/19 211 lb 12.8 oz (96.1 kg) VITALS: 05/31/2022 3:40 PM Weight 230 lb 9.6 oz (104.6 kg) BP 128/72 Blood pressure 128/72, pulse 70, weight 230 lb 9.6 oz (104.6 kg), last menstrual period 02/02/2019,not currently . Body mass index is 38.37 kg/m . MENTAL STATUS EXAM: Appearance: Neat + clean and Appropriately dressed Demeanor/Activity: Cooperative and Engaged Psychomotor Activity: N/A Speech: Regular Rate, Regular Rhythm, and Normal Volume Thought Process: Goal-Directed/Linear and Coherent Orientation: Oriented Thought Content/Perception: No Abnormal Thought Content and No Perceptual Distortions Mood: Euthymic Affect - Range: Full Affect - Other: Stable Behavior/Functioning: Good Eye Contact, Calm, and Pleasant Abnormal Movements: No Suicidal/Homicidal Thoughts: Denies suicidal thoughts and Denies homicidal thoughts Cognition: Intact Insight: Good insight Judgment: No impairment SAFETY RISK ASSESSMENT: Acute: Low risk of harm to self and/or others Chronic: Low risk of harm to self and/or others IMPRESSION: Nida Francis is a 41 year old female presenting for follow up visit today. Client presents with relatively stable mood. Anxiety and depression appears manageable with infrequent use of Ativan. Does not appear to have concerning symptoms of bonnie. Denies suicidal/homicidal ideation/self-harm. Does not appear to be experiencing AVTH nor appears internally stimulated except for one incident while febrile. No delusions noted or expressed. Denies any recent outburst, violence, aggression, or anger. Endorses continued administration and no side effects noted from current medication regimen; will continue current medication to minimize decompensation. No acute safety concerns apparentat this time. Appears appropriate for outpatient care. Follow-up in 6 weeks. Diagnoses: F31.81 Bipolar II disorder ([facility]) Plan : LAMOTRIGINE 150 MG TABLET - Take 1 Tablet by mouth 2 (two) times daily for 60 days F41.1 Generalized anxiety disorder Plan : LORAZEPAM 1 MG TABLET - Take 1 Tablet by mouth once daily as needed for anxiety (take 1 tablet daily as needed for anxiety) for up to 30 days F41.0 Panic disorder Plan : LORAZEPAM 1 MG TABLET - Take 1 Tablet by mouth once daily as needed for anxiety (take 1 tablet daily as needed for anxiety) for up to 30 days F43.10 Posttraumatic stress disorder Plan : LORAZEPAM 1 MG TABLET - Take 1 Tablet by mouth once daily as needed for anxiety (take 1 tablet daily as needed for anxiety) for up to 30 days RECOMMENDATIONS/TREATMENT PLAN : 1). [x] Medication: Discussed risks, side effects, benefits and alternatives to prescribed medication: Medication: Lamictal 150 BID for mood stability Ativan 1mg daily PRN (#10) Plan: Continues counseling RBA: R/B/A to treatment with Lamictal were discussed including common and severe side effects not limited to but including: maternal and risks (and not to become on psychotropic medicationswithout consulting provider), anticholinergic effects, risk of impaired coordination, rare risk of Bill Anant syndrome, and sedation. Pt verbalized understanding and agrees to proceed with this plan. Using for clear dx of bipolar . R/B/A to treatment with Ativan were discussed including common and severe side effects not limited to but including: anticholinergic effects, risk of impaired memory and concentration, risk of worsening depression, ability to potentiate the effects of alcohol, sedation, tolerance, and dependence. hypotension, , ataxia, incoordination, somnolence,dizziness, memory impairment, dysarthria, upper respiratory infection, irritability, decreased libido, respiratory depression, fatigue; and less commonly neutropenia, depression, suicidal thoughts, delirium, liver failure. Please note that tolerance, dependence can develop after chronic use of benzodiazepines (> 4 weeks). Withdrawal can also occur if the medication is discontinued abruptly or tapered too quickly. Talk to your doctor before using this medicine in combination with other sedating agents or respiratory depressants such as opioidsand barbiturates and alcohol Pt was advised not to drive, operate dangerous equipment, or make serious decisions while using these medications. Pt verbalized understanding and agrees to proceed with this plan. Patient informed of the following requirements for benzodiazepine treatment. There will not be any early refills The dose will not be increased over the phone Do not give it to anyone and keep it locked and away from children Do not suddenly discontinue the medication. Controlled medications will not be replaced if lost, stolen, damaged or not taken as prescribed Controlled medication prescriptions can only be obtained at an appointment Follow up every 3 months minimum is required by law to receive controlled medications OARRS will be checked regularly. Occasional urine Tox Screen may be ordered and if pt does not comply, the controlled medication will be stopped. 2). Referrals/Psychotherapy follow up/Co-management with other providers [] Primary care: [] [facility] at [facility] [] Alcohol/Drug treatment: [] Psychoeducation/Counseling [] Other: 3). [x] Emergency Contact Plan: Patient understands to call Mobile Crisis at [phone], call [phone], or go to the nearest ER as appropriate in case of thoughts of harm to self or others, or acute onset of intolerable side effects. 4.) [x] Physician/LDR RN Order: See PharmD , option trader to document data and make observations of the patient, including observations of physical and mental health symptoms, medication response, side effects and adherence, as well as education. RN will assess patient's health status, provide educationwith pill boxes and/or administer long-acting injections per orders. documented in this encounterWhite [facility] Work Phone: 1(369) 444-420812-16-2022 Miscellaneous Notes* Telephone Encounter - Jeannette Diaz MA - 04/09/2022 3:30 PM EST Patient phones requesting refills as follows: Requested Prescriptions Pending Prescriptions Disp Refills gabapentin (NEURONTIN) 100 mg capsule [Pharmacy Med Name: GABAPENTIN 100 MG CAPS 100 Capsule] 180 capsule 0 Sig: TAKE 2 CAPSULES BY MOUTH THREE TIMES A DAY pantoprazole DR (PROTONIX) 40 mg tablet [Pharmacy Med Name: PANTOPRAZOLE DR 40MG TAB 40 Tablet] 60 tablet 0 Sig: TAKE 1 TABLET BY MOUTH TWICE DAILY metoprolol succinate ER (TOPROL XL) 50 mg 24 hr tablet [Pharmacy Med Name: METOPROLOL SUCC ER 50MG TAB 50 Tablet] 30 tablet 0 Sig: TAKE 1 TABLET BY MOUTH ONCE DAILY rOPINIRole (REQUIP) 0.25 mg tablet [Pharmacy Med Name: ROPINIROLE 0.25MG TAB 0.25 Tablet] 30 tablet0 Sig: TAKE 1 TABLET BY MOUTH NIGHTLY AT BEDTIME Please review and advise. Jeannette Diaz MA documented in this encounterCh[facility]10-03-2022 Miscellaneous Notes* Telephone Encounter - Jeannette Diaz MA - 01/25/2022 10:35 AM EDT Patient phones requesting refills as follows: Requested Prescriptions Pending Prescriptions Disp Refills rOPINIRole (REQUIP) 0.25 mg tablet 30 tablet 1 Sig: Take 1 tablet by mouth once daily as needed. pantoprazole DR (PROTONIX) 40 mg tablet 60 tablet 2 Sig: TAKE ONE (1) TABLET BY MOUTH TWICE DAILY metoprolol succinate ER (TOPROL XL) 50 mg 24 hr tablet 30 tablet 2 Sig: Take 1 tablet by mouth once daily. ergocalciferol 50,000 unit capsule (VITAMIN D2, DRISDOL) 4 capsule 2 Sig: TAKE 1 CAPSULE BY MOUTH ONCE WEEKLY atorvastatin (LIPITOR) 80 mg tablet 30 tablet 2 Sig: TAKE 1 TABLET BY MOUTH ONCE DAILY *EMERGENCY REFILL* amLODIPine (NORVASC) 5 mg tablet 30 tablet 2 Sig: Take 1 tablet by mouth once daily. gabapentin (NEURONTIN) 100 mg capsule 180 capsule 0 Sig: TAKE 2 CAPSULES BY MOUTH THREE TIMES A DAY Please review and advise. Jeannette Diaz MA documented in this encounterCh[facility]09-24-2022 History of Present illness Narrative* Felecia Ely MD - 01/16/2022 3:49 PM EDT Nida Francis 1980 41 year old female [id number] January 05, 2022 HPI patient is following up the patient has a history of hypertension and history of prior CVA she did not do her lab work she did not schedule the follow-up the patient also has a history of mood disorder fatigue generalized no focal weakness she is due for vaccination with a COVID-19 booster PAST MEDICAL HISTORY Diagnosis Date Asthma History of vasculitis Pneumonia Psychiatric disorder anxiety, bi-polar Restless leg syndrome Stroke (HCC) 11/2015 Social History Tobacco Use Smoking status: Every Day Packs/day: 0.50 Years: 13.00 Pack years: 6.50 Types: Cigarettes Smokeless tobacco: Never Tobacco comments: cutting down, down 5 cigarettes daily Vaping Use Vaping Use: Never used Substance Use Topics Alcohol use: No Drug use: Yes Types: Marijuana Comment: weekly FAMILY HISTORY Problem Relation Age of Onset Hypertension Mother Depression Mother Hypertension Father Depression Father other (crohns) Maternal Grandmother Cancer Paternal Grandfather Breast Cancer Other 50 PAST SURGICAL HISTORY Procedure Laterality Date DENTAL SURGERY HX wisdom teeth LAPAROSCOPY SURG CHOLECYSTECTOMY 08/24/2017 MIDLINE INSERTION/CONSULT 08/21/2016 ORTHOPEDICS SURGERY HX right foot PICC LINE INSERT/CONSULT 12/19/2015 R.O.S negative other than HPI & PMH all other SYS reviewed and negative. Current Outpatient Medications Medication Sig Dispense Refill rOPINIRole (REQUIP) 0.25 mg tablet TAKE 1 TABLET BY MOUTH EVERYDAY AT BEDTIME 30 tablet 0 metoprolol succinate ER (TOPROL XL) 50 mg 24 hr tablet TAKE 1 TABLET BY MOUTH EVERY DAY 30 tablet 0 amLODIPine (NORVASC) 5 mg tablet TAKE 1 TABLET BY MOUTH EVERY DAY 30 tablet 0 atorvastatin (LIPITOR) 80 mg tablet TAKE 1 TABLET BY MOUTH ONCE DAILY *EMERGENCY REFILL* 30 tablet 1 ergocalciferol 50,000 unit capsule (VITAMIN D2, DRISDOL) TAKE 1 CAPSULE BY MOUTH ONCE WEEKLY [address] (PROTONIX) 40 mg tablet TAKE ONE (1) TABLET BY MOUTH TWICE DAILY 60 tablet 0 mycophenolate Mofetil (CELLCEPT) 500 mg tablet TAKE 2 TABLETS BY MOUTH TWICE DAILY 120 tablet 10 gabapentin (NEURONTIN) 100 mg capsule TAKE 2 CAPSULES BY MOUTH THREE TIMES A DAY 180 capsule 0 tiZANidine HCl (ZANAFLEX) 4 mg capsule Take 1 capsule by mouth three times daily as needed for muscle spasm. 12 capsule 0 lidocaine (SALONPAS) 4 % patch Apply 1 Patch as directed once daily. 5 Patch 0 LORazepam (ATIVAN) 1 mg tablet Take 1 mg by mouth as needed. iv contrast (will be provided with radiology test) MRA Brain Inject, intravenously, once for 1 dose. No IV access, insert saline lock prior to the beginning of sedation, infusion, injection of imaging exam. Discontinue saline lock post exam. If Pt. has a central line or IVAD, may access for administration according to line specific nursing protocol. Once exam is complete flush line and de-access according to line specific nursing protocol in the MR contrast administration guidelines link. 1 Each 0 iv contrast (will be provided with radiology test) MRI Brain Inject, intravenously, once for 1 dose.No IV access, insert saline lock prior to beginning of sedation, infusion, injection of imaging exam.Discontinue saline lock post exam. If Pt. has a central line or IVAD, may access for administration according to line specific nursing protocol.Once exam is complete flush line and de-access according to line specific nursing protocol in the MR contrast administration guidelines link 1 Each 0 iv contrast (will be provided with radiology test) MRI Brain Inject, intravenously, once for 1 dose.No IV access, insert saline lock prior to beginning of sedation, infusion, injection of imaging exam.Discontinue saline lock post exam. If Pt. has a central line or IVAD, may access for administration according to line specific nursing protocol.Once exam is complete flush line and de-access according to line specific nursing protocol in the MR contrast administration guidelines link 1 Each 0 iv contrast (will be provided with radiology test) MRA Brain Inject, intravenously, once for 1 dose. No IV access, insert saline lock prior to the beginning of sedation, infusion, injection of imaging exam. Discontinue saline lock post exam. If Pt. has a central line or IVAD, may access for administration according to line specific nursing protocol. Once exam is complete flush line and de-access according to line specific nursing protocol in the MR contrast administration guidelines link. 1 Each 0 lamoTRIgine (LAMICTAL) 150 mg tablet Take 1 tablet by mouth twice daily. 60 tablet 1 aspirin 81 mg chewable tablet Take 1 tablet by mouth once daily. 90 tablet 0 acetaminophen (TYLENOL) 325 mg tablet Take 2 tablets by mouth every 6 hours. 0 albuterol HFA (VENTOLIN HFA) 90 mcg/actuation inhaler Inhale 2 Puffs as instructed every 4 hours asneeded for Wheezing/Shortness of Breath. 1 Inhaler 11 No current facility-administered medications for this visit. DATA: CBC: No results for input(s): WBC, RBC, HB, HCT, PLT, MCV, MCH, MPV, RDW in the last 24 hours. CMP:No results for input(s): NA, K, CHLOR, CO2, BUN, CREAT, GLUC, TPROT, CA, MG, ALBUMIN, TBILI, ALKPHOS, ALT, AST, ANION in the last 24 hours. No results found for this basename: psa Cholesterol, Total (mg/dL) Date Value 10/14/2020 147 HDL Cholesterol (mg/dL) Date Value 10/14/2020 38 LDL Cholesterol (mg/dL) Date Value 10/14/2020 90 Triglyceride (mg/dL) Date Value 10/14/2020 96 Hemoglobin A1C (%) Date Value 10/14/2020 5.5 02/19/2019 5.5 11/10/2017 5.3 11/09/2017 5.2 11/08/2017 5.3 BP 130/70 Pulse 80 LMP 12/19/2020 SpO2 98% PHYSICAL EXAMINATION: General appearance: Well appearing, alert, in no acute distress, well-hydrated, well nourished. Skin: Skin color, texture, turgor normal, no suspicious rashes or lesions Head: Normocephalic, no masses, lesions, tenderness or abnormalities Eyes: Anicteric sclera. Pupils are equally round and reactive to light. Extraocular movements are intact. Ears: External ears normal, canals clear Nose/Sinuses: Nares normal, septum midline, mucosa normal, no drainage or sinus tenderness Oropharynx: Lips, mucosa, and tongue normal, teeth and gums normal, oropharynx normal Neck: Supple, no adenopathy; thyroid symmetric, normal size, no bruits Back: Normal exam Lungs: Lungs clear to auscultation. No wheezing, rhonchi, rales Heart: RRR without murmur, gallop, or rubs. No ectopy Abdomen: Normal abdominal exam, Abdomen soft, non-tender. Bowel sounds normal. No masses, organomegaly Extremities: No deformities, edema, skin discoloration, clubbing or cyanosis. Good capillary refill. Musculoskeletal: No joint swelling, deformity, or tenderness Peripheral pulses: Normal Neuro: No focal deficit/at baseline Feet: Pulses positive No sensory deficit Consultants notes reviewed Most recent CT/CXR reviewed Last EKG reviewed ASSESSMENT/PLAN: 1. Essential hypertension - ICD9: 401.9, ICD10: I10 (primary diagnosis) - good control - Recommended regular aerobic exercise. - Recommend home blood pressure monitoring, to bring results in on next visit - Goal of BP <130/80 2. Cannabis dependence (HCC) - ICD9: 304.30, ICD10: F12.20 Advised to quit 3. Unspecified mood (affective) disorder (HCC) - ICD9: 296.90, ICD10: F39 Follow-up psychiatrist 4. Dietary counseling - ICD9: V65.3, ICD10: Z71.3 The patient is asked to make an attempt to improve diet and exercise patterns to aid in medical management of this problem. flp 5. Cerebrovascular accident (CVA) due to stenosis of left middle cerebral artery (HCC) - ICD9: 434.91, ICD10: I63.512 Recommend duplex scan carotid 6. Mild intermittent asthma without complication - ICD9: 493.90, ICD10: J45.20 PFTs Felecia Ely MD documented in this encounterCh[facility]ic[facility]09-23-2022 NoteHNO ID: [id number] Author: Marvin Muniz Service: ? Author Type: Fire Sprinkler Inspector Type: Progress Notes Filed: 01/15/2022 8:09 AM Note Text: Radiology Service Progress Note PATIENT NAME: Nida Francis DATE OF SERVICE: January 15, 2022 TIME: 8:08 AM PATIENT IDENTITY VERIFICATION COMPLETED USING TWO (2) IDENTIFIERS: Name and Date of confirmed by patient verbally. FALL SCREENING: Has the patient had 2 falls in the last year or 1 fall with injury or currently using an Ambulatory Assistive Device (Walker, Cane, Wheelchair, Crutches, etc.)? No PATIENT GENDER DATA: Female. status: : No status: NO. PATIENT RELEVANT IMPLANT DATA REVIEWED: Not Applicable RADIOLOGY DEPARTMENT: [facility] DATA: Not applicable SIGNED BY: Marvin Muniz January 15, 2022 8:08 [facility]09[facility] History of Present illness Narrative* Marvin Muniz - 01/15/2022 8:08 AM EDT Radiology Service Progress Note PATIENT NAME: Nida Francis DATE OF SERVICE: January 15, 2022 TIME: 8:08 AM PATIENT IDENTITY VERIFICATION COMPLETED USING TWO (2) IDENTIFIERS: Name and Date of confirmedby patient verbally. FALL SCREENING: Has the patient had 2 falls in the last year or 1 fall with injury or currently using an Ambulatory Assistive Device (Walker, Cane, Wheelchair, Crutches, etc.)? No PATIENT GENDER DATA: Female. status: : No status: NO. PATIENT RELEVANT IMPLANT DATA REVIEWED: Not Applicable RADIOLOGY DEPARTMENT: [facility] DATA: Not applicable SIGNED BY: Marvin Muniz January 15, 2022 8:08 AM documented [facility] Miscellaneous Notes* Telephone Encounter - Jeannette Diaz MA - 11/17/2021 1:29 PM EDT Patient phones requesting refills as follows: Pending Prescriptions Disp Refills ERGOCALCIFEROL (VITAMIN D2) 1,250 MCG (50,000 UNIT) CAPSULE 4 capsule 2 Sig: TAKE 1 CAPSULE BY MOUTH ONCE WEEKLY ZHANG: No ROPINIROLE 0.25 MG TABLET 30 tablet 2 Sig: TAKE 1 TABLET BY MOUTH EVERY NIGHT AT BEDTIME *EMERGENCY REFILL* ZHANG: Yes METOPROLOL SUCCINATE ER 50 MG TABLET,EXTENDED RELEASE 24 HR 30 tablet 2 Sig: TAKE 1 TABLET BY MOUTH ONCE DAILY *EMERGENCY REFILL* ZHANG: Yes ATORVASTATIN 80 MG TABLET 30 tablet 2 Sig: TAKE 1 TABLET BY MOUTH ONCE DAILY *EMERGENCY REFILL* ZHANG: Yes AMLODIPINE 5 MG TABLET 30 tablet 2 Sig: TAKE 1 TABLET BY MOUTH ONCE DAILY *EMERGENCY REFILL* ZHANG: Yes Please review and advise. Jeannette Diaz MA documented in this encounterCh[facility]07-[facility]22 History of Present illness Narrative* Felecia Ely MD - 11/10/2021 10:07 PM EDT Nida L Tim 1980 40 year old female [id number] November 10, 2021 HPI Patient is here for a wellness visit and physical examination has multiple medical problem denies any new complaint no chest pain shortness of breath or abdominal pain. Of hypertension asthma no chest pain or shortness of breath the patient also has chronic osteoarthritis right hip pain lately has been Little bit worse the patient feels that sometimes she needs something stronger than [id number] medication PAST MEDICAL HISTORY Diagnosis Date Asthma History of vasculitis Pneumonia Psychiatric disorder anxiety, bi-polar Restless leg syndrome Stroke (HCC) 11/2015 Social History Tobacco Use Smoking status: Current Every Day Smoker Packs/day: 0.50 Years: 13.00 Pack years: 6.50 Types: Cigarettes Smokeless tobacco: Never Used Tobacco comment: cutting down, down 5 cigarettes daily Vaping Use Vaping Use: Never used Substance Use Topics Alcohol use: No Drug use: Yes Types: Marijuana Comment: weekly FAMILY HISTORY Problem Relation Age of Onset Hypertension Mother Depression Mother Hypertension Father Depression Father other (crohns) Maternal Grandmother Cancer Paternal Grandfather Breast Cancer Other 50 PAST SURGICAL HISTORY Procedure Laterality Date DENTAL SURGERY HX wisdom teeth LAPAROSCOPY SURG CHOLECYSTECTOMY 08/24/2017 MIDLINE INSERTION/CONSULT 08/21/2016 ORTHOPEDICS SURGERY HX right foot PICC LINE INSERT/CONSULT 12/19/2015 R.O.S negative other than HPI & PMH all other SYS reviewed and negative. Current Outpatient Medications Medication Sig Dispense Refill amLODIPine (NORVASC) 5 mg tablet Take 1 tablet by mouth once daily. 30 tablet 0 metoprolol succinate ER (TOPROL XL) 50 mg 24 hr tablet Take 1 tablet by mouth once daily. 30 tablet0 rOPINIRole (REQUIP) 0.25 mg tablet Take 1 tablet by mouth daily at bedtime. [address] (PROTONIX) 40 mg tablet TAKE ONE (1) TABLET BY MOUTH TWICE DAILY 60 tablet 0 mycophenolate Mofetil (CELLCEPT) 500 mg tablet TAKE 2 TABLETS BY MOUTH TWICE DAILY 120 tablet 10 ergocalciferol 50,000 unit capsule (VITAMIN D2, DRISDOL) TAKE 1 CAPSULE BY MOUTH ONCE WEEKLY 4 capsule 0 atorvastatin (LIPITOR) 80 mg tablet TAKE 1 TABLET BY MOUTH EVERY DAY 30 tablet 0 gabapentin (NEURONTIN) 100 mg capsule TAKE 2 CAPSULES BY MOUTH THREE TIMES A DAY 180 capsule 0 tiZANidine HCl (ZANAFLEX) 4 mg capsule Take 1 capsule by mouth three times daily as needed for muscle spasm. 12 capsule 0 lidocaine (SALONPAS) 4 % patch Apply 1 Patch as directed once daily. 5 Patch 0 LORazepam (ATIVAN) 1 mg tablet Take 1 mg by mouth as needed. iv contrast (will be provided with radiology test) MRA Brain Inject, intravenously, once for 1 dose. No IV access, insert saline lock prior to the beginning of sedation, infusion, injection of imaging exam. Discontinue saline lock post exam. If Pt. has a central line or IVAD, may access for administration according to line specific nursing protocol. Once exam is complete flush line and de-access according to line specific nursing protocol in the MR contrast administration guidelines link. 1 Each 0 iv contrast (will be provided with radiology test) MRI Brain Inject, intravenously, once for 1 dose.No IV access, insert saline lock prior to beginning of sedation, infusion, injection of imaging exam.Discontinue saline lock post exam. If Pt. has a central line or IVAD, may access for administration according to line specific nursing protocol.Once exam is complete flush line and de-access according to line specific nursing protocol in the MR contrast administration guidelines link 1 Each 0 iv contrast (will be provided with radiology test) MRI Brain Inject, intravenously, once for 1 dose.No IV access, insert saline lock prior to beginning of sedation, infusion, injection of imaging exam.Discontinue saline lock post exam. If Pt. has a central line or IVAD, may access for administration according to line specific nursing protocol.Once exam is complete flush line and de-access according to line specific nursing protocol in the MR contrast administration guidelines link 1 Each 0 iv contrast (will be provided with radiology test) MRA Brain Inject, intravenously, once for 1 dose. No IV access, insert saline lock prior to the beginning of sedation, infusion, injection of imaging exam. Discontinue saline lock post exam. If Pt. has a central line or IVAD, may access for administration according to line specific nursing protocol. Once exam is complete flush line and de-access according to line specific nursing protocol in the MR contrast administration guidelines link. 1 Each 0 lamoTRIgine (LAMICTAL) 150 mg tablet Take 1 tablet by mouth twice daily. 60 tablet 1 aspirin 81 mg chewable tablet Take 1 tablet by mouth once daily. 90 tablet 0 acetaminophen (TYLENOL) 325 mg tablet Take 2 tablets by mouth every 6 hours. 0 albuterol HFA (VENTOLIN HFA) 90 mcg/actuation inhaler Inhale 2 Puffs as instructed every 4 hours asneeded for Wheezing/Shortness of Breath. 1 Inhaler 11 No current facility-administered medications for this visit. DATA: CBC: No results for input(s): WBC, RBC, HB, HCT, PLT, MCV, MCH, MPV, RDW in the last 24 hours. CMP:No results for input(s): NA, K, CHLOR, CO2, BUN, CREAT, GLUC, TPROT, CA, MG, ALBUMIN, TBILI, ALKPHOS, ALT, AST, ANION in the last 24 hours. No results found for this basename: psa Cholesterol, Total (mg/dL) Date Value 10/14/2020 147 HDL Cholesterol (mg/dL) Date Value 10/14/2020 38 LDL Cholesterol (mg/dL) Date Value 10/14/2020 90 Triglyceride (mg/dL) Date Value 10/14/2020 96 Hemoglobin A1C (%) Date Value 10/14/2020 5.5 02/19/2019 5.5 11/10/2017 5.3 11/09/2017 5.2 11/08/2017 5.3 BP 129/80 Pulse 78 LMP 12/19/2020 SpO2 98% PHYSICAL EXAMINATION: General appearance: Well appearing, alert, in no acute distress, well-hydrated, well nourished. Skin: Skin color, texture, turgor normal, no suspicious rashes or lesions Head: Normocephalic, no masses, lesions, tenderness or abnormalities Eyes: Anicteric sclera. Pupils are equally round and reactive to light. Extraocular movements are intact. Ears: External ears normal, canals clear Nose/Sinuses: Nares normal, septum midline, mucosa normal, no drainage or sinus tenderness Oropharynx: Lips, mucosa, and tongue normal, teeth and gums normal, oropharynx normal Neck: Supple, no adenopathy; thyroid symmetric, normal size, no bruits Back: Normal exam Lungs: Lungs clear to auscultation. No wheezing, rhonchi, rales Heart: RRR without murmur, gallop, or rubs. No ectopy Abdomen: Normal abdominal exam, Abdomen soft, non-tender. Bowel sounds normal. No masses, organomegaly Extremities: No deformities, edema, skin discoloration, clubbing or cyanosis. Good capillary refill. Musculoskeletal: No joint swelling, deformity, or tenderness Peripheral pulses: Normal Neuro: No focal deficit/at baseline Feet: Pulses positive No sensory deficit Consultants notes reviewed Most recent CT/CXR reviewed Last EKG reviewed ASSESSMENT/PLAN: 1. Essential hypertension - ICD9: 401.9, ICD10: I10 (primary diagnosis) - good control - Recommended regular aerobic exercise. - Recommend home blood pressure monitoring, to bring results in on next visit - Goal of BP <130/80 2. Dietary counseling - ICD9: V65.3, ICD10: Z71.3 The patient is asked to make an attempt to improve diet and exercise patterns to aid in medical management of this problem. 3. Mild intermittent asthma without complication - ICD9: 493.90, ICD10: J45.20 Mild intermittent Asthma stable - Avoidance of triggers recommended 4. Right hip pain - ICD9: 719.45, ICD10: M25.551 Rose Bud 1 tablet 325/5 mg p.o. daily as needed 10 tablets has been given for use as needed Felecia Ely MD documented in this encounterCh[facility]07-14-2022 Miscellaneous Notes* Telephone Encounter - Flori Lundberg MA - 11/05/2021 1:45 PM EDT Patient phones requesting refills as follows: Pending Prescriptions Disp Refills AMLODIPINE 5 MG TABLET 30 tablet 0 Sig: Take 1 tablet by mouth once daily. ZHANG: No METOPROLOL SUCCINATE ER 50 MG TABLET,EXTENDED RELEASE 24 HR 30 tablet 0 Sig: Take 1 tablet by mouth once daily. ZHAGN: No ROPINIROLE 0.25 MG TABLET 30 tablet 0 Sig: Take 1 tablet by mouth daily at bedtime. ZHANG: No PANTOPRAZOLE 40 MG TABLET,DELAYED RELEASE 60 tablet 0 Sig: TAKE ONE (1) TABLET BY MOUTH TWICE DAILY ZHANG: No Please review and advise. Flori Lundberg MA documented in this encounterCh[facility]05-02-2022 Miscellaneous Notes* Telephone Encounter - Dalia Alcaraz - 08/24/2021 12:16 PM EDT Most recent Rheumatology visit: 08/21/2020 (with Katie Armas) Upcoming Rheumatology Appointments - Next 365 Days No appointments to display CBC: CBC Latest Ref Rng & Units 07/20/2021 07/22/2021 WBC 3.70 - 11.00 k/uL 15.13(H) 8.85 HEMOGLOBIN 11.5 - 15.5 g/dL 14.4 13.5 HEMOGLOBIN TOTAL, WHOLE BLOOD 12 - 16 g/dL - - HEMATOCRIT 36.0 - 46.0 % 41.8 39.6 PLATELETS 150 - 400 k/uL 300 235 ABS NEUT (ANC) 1.45 - 7.50 k/uL 11.99(H) 5.68 ABS LYM 1.2 - 3.4 k/uL - - ABS LYMPH 1.00 - 4.00 k/uL 2.13 2.50 Vitamin D: None on file in the last 6 months LFT: CMP Latest Ref Rng & Units 07/20/2021 07/22/2021 SODIUM 136 - 144 mmol/L 139 139 POTASSIUM 3.7 - 5.1 mmol/L 3.1(L) 3.1(L) CHLORIDE 97 - 105 mmol/L 100 102 CO2 22 - 30 mmol/L 22 25 GLUCOSE 74 - 99 mg/dL 123(H) 98 BUN 7 - 21 mg/dL 17 12 CREATININE 0.58 - 0.96 mg/dL 0.96 0.84 CALCIUM, TOTAL 8.5 - 10.2 mg/dL 9.7 9.2 AST 13 - 35 U/L 19 20 ALT 7 - 38 U/L 22 22 ALKALINE PHOSPHATASE 34 - 123 U/L 76 72 Creatinine: Creatinine Latest Ref Rng & Units 07/20/2021 07/22/2021 CREAT 0.58 - 0.96 mg/dL 0.96 0.84 ESR/CRP: None on file in the last 6 months Uric Acid: None on file in the last 6 months Open Standing (Multiple Instance) Lab Orders Remain Interval Expires Ordered Last Rel. CBC + DIFF [SQCBCDIF] 3 Every 3 months 01/19/22 02/21/20 08/21/20 Auth. provider: Katie Merdeithoc. diagnoses: Cerebral infarction, unspecified mechanism (HCC) COMP METABOLIC PANEL [SQCMP] 3 Every 3 months 01/19/22 02/21/20 08/21/20 Auth. provider: Katie Hajj Ali Assoc. diagnoses: Cerebral infarction, unspecified mechanism (HCC) CBC + DIFF [SQCBCDIF] 09/28 Every 2 months 02/27/22 02/27/21 Auth. provider: Katie Vick MD Assoc. 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 provider: Katie Vick MD Assoc. diagnoses: Vasculitis, 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) Open Future (Single Instance) Lab Orders None Dalia Alcaraz RN documented in this encounterCh[facility]10-01-[facility] History of Past illness Narrative* Problem Noted Date Resolved Date Hip pain, right 01/24/2020 05/21/2020 Intractable vomiting 04/17/2019 10/05/2019 MDD (major depressive disorder) 02/18/2019 02/20/2019 Vomiting 08/30/2018 02/20/2019 Mild intermittent asthma without complication 02/20/2019 Nausea 08/25/2017 08/26/2017 Acalculous cholecystitis 08/18/2017 018 Chronic cholecystitis 08/15/2017 08/24/2017 Overview: Added automatically from request for surgery [id number] Nausea and vomiting 07/23/2017 07/25/2017 Pneumonia 02/03/2017 06/16/2017 Encephalopathy acute 10/09/2016 10/28/2016 Panic attack 10/09/2016 10/28/2016 Hypokalemia 10/09/2016 07/25/2017 Alkalosis 10/07/2016 10/28/2016 Chest pain 09/17/2016 09/19/2016 Chest pain 08/20/2016 08/23/2016 Overview: Says she has had continuous chest pain for past few months Exam reveals chest wall and back tenderness ? fibromyalgia EKG showed some upsloping ST depression in lateral leads (same as EKG in 06/2016) Troponin awaited Based on presentation unlikely to be pain from ischemia Plan: 1. No further w/u if troponin negative and repeat EKG stable. QT prolongation 08/20/2016 08/23/2016 Overview: Hypokalemic when she came in She has also received multiple anti-emetics with potential for QT prolongation Plan: 1. Repeat EKG 2. Telemetry monitoring Right leg swelling 08/20/2016 08/23/2016 Overview: US to r/o DVT Malnutrition of mild degree 06/16/2016 05/04/2016 Failure to thrive in adult 06/15/201610/28 Overview: Nausea and vomiting x2 weeks causing dehydration Most likely due to cyclophosphamide (given temporal relationship with onset of symptoms) Less likely due to increased intracranial pressure (may be pseudotumor cerebri V.S vitamin D excess V.S intracranial aneurysm possibly causing obstruction to CSF drainage system). 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 Gave 1 L bolus of LR, will continue with IVF infusion 75 ml/hr. 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 PRICING ANALYST negativeMRI:Acute right MCA infarct with multiple punctate acute infarctions on the contralateral side with multifocal anterior and posterior circulation stenoses with occlusion of a proximal sylvian branch of the Right middle cerebral artery concerning for underlying vasculopathy/vasculitis. CT chest on 12/04:scattered foci of groundglass attenuation involving both upper lobes, the right middle lobe, as well as the right lower lobe. DDx: includes ANCA vasculitis with 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 DRIVER involvement, APLA, Primary angiitis of 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 DRIVER,SLE LP: mild pleocytosis (lymphocyes 90),ptn slightly elevated :57 Plan: Angiography today Keep NPO,IVF 100 ml/hr If angiogram suggests vasculitis, to start high doses steroids IV . Possible brain biopsy at [facility]. Check other CTD and Vasculitis w/u Acute right MCA stroke 12/13/2015 6 Overview: Left sided Facial drooping since morning Associated with numbness and deviation of angle of mouth. Progressive weakness in small muscles of left hand. CT BRAIN WO CON: unremarkable. Neurology on consult. Plan:. Aspirin 325 mg PO. TELE Acute right MCA stroke 12/12/2015 7 Overview: Still c/o Left sided Facial drooping associated with numbness and deviation of angle of mouth.(with minimal improvement) Today she is having Rt hand numbness and tongue tip numbness MRI: Acute subsegmental right middle cerebral artery distribution infarction with additional punctate acute infarctions on the contralateral side superimposed on some chronic white matter insults including of the genu of the left internal capsule. Lipid panel: wnl other than HDL: 47 Plan:. Neurology on consult. Rheum on consult -following markers Possible angiography today Add Lipitor 40 mg daily Cardiology consult regarding BLAISE Pneumonia 12/05/2015 03/03/2016 Overview: Completed course of antibiotics today. She took azithromycin and cefipime Resolved. documented as of this encounter (statuses as of 08/24/2021) [facility] of Past illness Narrative* Problem Noted Date Resolved Date Hip pain, right 01/24/2020 05/21/2020 Intractable vomiting 04/17/2019 10/05/2019 MDD (major depressive disorder) 02/18/2019 02/20/2019 Vomiting 08/30/2018 02/20/2019 Mild intermittent asthma without complication 02/20/2019 Nausea 08/25/2017 08/26/2017 Acalculous cholecystitis 08/18/2017 018 Chronic cholecystitis 08/15/2017 08/24/2017 Overview: Added automatically from request for surgery [id number] Nausea and vomiting 07/23/2017 07/25/2017 Pneumonia 02/03/2017 06/16/2017 Encephalopathy acute 10/09/2016 10/28/2016 Panic attack 10/09/2016 10/28/2016 Hypokalemia 10/09/2016 07/25/2017 Alkalosis 10/07/2016 10/28/2016 Chest pain 09/17/2016 09/19/2016 Chest pain 08/20/2016 08/23/2016 Overview: Says she has had continuous chest pain for past few months Exam reveals chest wall and back tenderness ? fibromyalgia EKG showed some upsloping ST depression in lateral leads (same as EKG in 06/2016) Troponin awaited Based on presentation unlikely to be pain from ischemia Plan: 1. No further w/u if troponin negative and repeat EKG stable. QT prolongation 08/20/2016 08/23/2016 Overview: Hypokalemic when she came in She has also received multiple anti-emetics with potential for QT prolongation Plan: 1. Repeat EKG 2. Telemetry monitoring Right leg swelling 08/20/2016 08/23/2016 Overview: US to r/o DVT Malnutrition of mild degree 06/16/2016 05/0 04/2016 Failure to thrive in adult 06/15/201610/28 Overview: Nausea and vomiting x2 weeks causing dehydration Most likely due to cyclophosphamide (given temporal relationship with onset of symptoms) Less likely due to increased intracranial pressure (may be pseudotumor cerebri V.S vitamin D excess V.S intracranial aneurysm possibly causing obstruction to CSF drainage system). 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 Gave 1 L bolus of LR, will continue with IVF infusion 75 ml/hr. 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 PRICING ANALYST negativeMRI:Acute right MCA infarct with multiple punctate acute infarctions on the contralateral side with multifocal anterior and posterior circulation stenoses with occlusion of a proximal sylvian branch of the Right middle cerebral artery concerning for underlying vasculopathy/vasculitis. CT chest on 12/04:scattered foci of groundglass attenuation involving both upper lobes, the right middle lobe, as well as the right lower lobe. DDx: includes ANCA vasculitis with 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 DRIVER involvement, APLA, Primary angiitis of 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 DRIVER,SLE LP: mild pleocytosis (lymphocyes 90),ptn slightly elevated :57 Plan: Angiography today Keep NPO,IVF 100 ml/hr If angiogram suggests vasculitis, to start high doses steroids IV . Possible brain biopsy at [facility]. Check other CTD and Vasculitis w/u Acute right MCA stroke 12/13/2015 6 Overview: Left sided Facial drooping since morning Associated with numbness and deviation of angle of mouth. Progressive weakness in small muscles of left hand. CT BRAIN WO CON: unremarkable. Neurology on consult. Plan:. Aspirin 325 mg PO. TELE Acute right MCA stroke 12/12/2015 7 Overview: Still c/o Left sided Facial drooping associated with numbness and deviation of angle of mouth.(with minimal improvement) Today she is having Rt hand numbness and tongue tip numbness MRI: Acute subsegmental right middle cerebral artery distribution infarction with additional punctate acute infarctions on the contralateral side superimposed on some chronic white matter insults including of the genu of the left internal capsule. Lipid panel: wnl other than HDL: 47 Plan:. Neurology on consult. Rheum on consult -following markers Possible angiography today Add Lipitor 40 mg daily Cardiology consult regarding BLAISE Pneumonia 12/05/2015 03/03/2016 Overview: Completed course of antibiotics today. She took azithromycin and cefipime Resolved. documented as of this encounter (statuses as of 11/05/2021) [facility] of Past illness Narrative* Problem Noted Date Resolved Date Hip pain, right 01/24/2020 05/21/2020 Intractable vomiting 04/17/2019 10/05/2019 MDD (major depressive disorder) 02/18/2019 02/20/2019 Vomiting 08/30/2018 02/20/2019 Mild intermittent asthma without complication 02/20/2019 Nausea 08/25/2017 08/26/2017 Acalculous cholecystitis 08/18/2017 018 Chronic cholecystitis 08/15/2017 08/24/2017 Overview: Added automatically from request for surgery [id number] Nausea and vomiting 07/23/2017 07/25/2017 Pneumonia 02/03/2017 06/16/2017 Encephalopathy acute 10/09/2016 10/28/2016 Panic attack 10/09/2016 10/28/2016 Hypokalemia 10/09/2016 07/25/2017 Alkalosis 10/07/2016 10/28/2016 Chest pain 09/17/2016 09/19/2016 Chest pain 08/20/2016 08/23/2016 Overview: Says she has had continuous chest pain for past few months Exam reveals chest wall and back tenderness ? fibromyalgia EKG showed some upsloping ST depression in lateral leads (same as EKG in 06/2016) Troponin awaited Based on presentation unlikely to be pain from ischemia Plan: 1. No further w/u if troponin negative and repeat EKG stable. QT prolongation 08/20/2016 08/23/2016 Overview: Hypokalemic when she came in She has also received multiple anti-emetics with potential for QT prolongation Plan: 1. Repeat EKG 2. Telemetry monitoring Right leg swelling 08/20/2016 08/23/2016 Overview: US to r/o DVT Malnutrition of mild degree 06/16/201604/2016 Failure to thrive in adult 06/15/201610/28 Overview: Nausea and vomiting x2 weeks causing dehydration Most likely due to cyclophosphamide (given temporal relationship with onset of symptoms) Less likely due to increased intracranial pressure (may be pseudotumor cerebri V.S vitamin D excess V.S intracranial aneurysm possibly causing obstruction to CSF drainage system). 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 Gave 1 L bolus of LR, will continue with IVF infusion 75 ml/hr. 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 PRICING ANALYST negativeMRI:Acute right MCA infarct with multiple punctate acute infarctions on the contralateral side with multifocal anterior and posterior circulation stenoses with occlusion of a proximal sylvian branch of the Right middle cerebral artery concerning for underlying vasculopathy/vasculitis. CT chest on 12/04:scattered foci of groundglass attenuation involving both upper lobes, the right middle lobe, as well as the right lower lobe. DDx: includes ANCA vasculitis with 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 DRIVER involvement, APLA, Primary angiitis of 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 DRIVER,SLE LP: mild pleocytosis (lymphocyes 90),ptn slightly elevated :57 Plan: Angiography today Keep NPO,IVF 100 ml/hr If angiogram suggests vasculitis, to start high doses steroids IV . Possible brain biopsy at [facility]. Check other CTD and Vasculitis w/u Acute right MCA stroke 12/13/2015 6 Overview: Left sided Facial drooping since morning Associated with numbness and deviation of angle of mouth. Progressive weakness in small muscles of left hand. CT BRAIN WO CON: unremarkable. Neurology on consult. Plan:. Aspirin 325 mg PO. TELE Acute right MCA stroke 12/12/2015 7 Overview: Still c/o Left sided Facial drooping associated with numbness and deviation of angle of mouth.(with minimal improvement) Today she is having Rt hand numbness and tongue tip numbness MRI: Acute subsegmental right middle cerebral artery distribution infarction with additional punctate acute infarctions on the contralateral side superimposed on some chronic white matter insults including of the genu of the left internal capsule. Lipid panel: wnl other than HDL: 47 Plan:. Neurology on consult. Rheum on consult -following markers Possible angiography today Add Lipitor 40 mg daily Cardiology consult regarding BLAISE Pneumonia 12/05/2015 03/03/2016 Overview: Completed course of antibiotics today. She took azithromycin and cefipime Resolved. documented as of this encounter (statuses as of 11/10/2021) [facility]10-01-2020 History of Past illness Narrative* Problem Noted Date Resolved Date Hip pain, right 01/24/2020 05/21/2020 Intractable vomiting 04/17/2019 10/05/2019 MDD (major depressive disorder) 02/18/2019 02/20/2019 Vomiting 08/30/2018 02/20/2019 Mild intermittent asthma without complication 02/20/2019 Nausea 08/25/2017 08/26/2017 Acalculous cholecystitis 08/18/2017 018 Chronic cholecystitis 08/15/2017 08/24/2017 Overview: Added automatically from request for surgery [id number] Nausea and vomiting 07/23/2017 07/25/2017 Pneumonia 02/03/2017 06/16/2017 Encephalopathy acute 10/09/2016 10/28/2016 Panic attack 10/09/2016 10/28/2016 Hypokalemia 10/09/2016 07/25/2017 Alkalosis 10/07/2016 10/28/2016 Chest pain 09/17/2016 09/19/2016 Chest pain 08/20/2016 08/23/2016 Overview: Says she has had continuous chest pain for past few months Exam reveals chest wall and back tenderness ? fibromyalgia EKG showed some upsloping ST depression in lateral leads (same as EKG in 06/2016) Troponin awaited Based on presentation unlikely to be pain from ischemia Plan: 1. No further w/u if troponin negative and repeat EKG stable. QT prolongation 08/20/2016 08/23/2016 Overview: Hypokalemic when she came in She has also received multiple anti-emetics with potential for QT prolongation Plan: 1. Repeat EKG 2. Telemetry monitoring Right leg swelling 08/20/2016 08/23/2016 Overview: US to r/o DVT Malnutrition of mild degree 06/16/201604/2016 Failure to thrive in adult 06/15/201610/28 Overview: Nausea and vomiting x2 weeks causing dehydration Most likely due to cyclophosphamide (given temporal relationship with onset of symptoms) Less likely due to increased intracranial pressure (may be pseudotumor cerebri V.S vitamin D excess V.S intracranial aneurysm possibly causing obstruction to CSF drainage system). 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 Gave 1 L bolus of LR, will continue with IVF infusion 75 ml/hr. 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 PRICING ANALYST negativeMRI:Acute right MCA infarct with multiple punctate acute infarctions on the contralateral side with multifocal anterior and posterior circulation stenoses with occlusion of a proximal sylvian branch of the Right middle cerebral artery concerning for underlying vasculopathy/vasculitis. CT chest on 12/04:scattered foci of groundglass attenuation involving both upper lobes, the right middle lobe, as well as the right lower lobe. DDx: includes ANCA vasculitis with 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 DRIVER involvement, APLA, Primary angiitis of 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 DRIVER,SLE LP: mild pleocytosis (lymphocyes 90),ptn slightly elevated :57 Plan: Angiography today Keep NPO,IVF 100 ml/hr If angiogram suggests vasculitis, to start high doses steroids IV . Possible brain biopsy at [facility]. Check other CTD and Vasculitis w/u Acute right MCA stroke 12/13/2015 6 Overview: Left sided Facial drooping since morning Associated with numbness and deviation of angle of mouth. Progressive weakness in small muscles of left hand. CT BRAIN WO CON: unremarkable. Neurology on consult. Plan:. Aspirin 325 mg PO. TELE Acute right MCA stroke 12/12/2015 7 Overview: Still c/o Left sided Facial drooping associated with numbness and deviation of angle of mouth.(with minimal improvement) Today she is having Rt hand numbness and tongue tip numbness MRI: Acute subsegmental right middle cerebral artery distribution infarction with additional punctate acute infarctions on the contralateral side superimposed on some chronic white matter insults including of the genu of the left internal capsule. Lipid panel: wnl other than HDL: 47 Plan:. Neurology on consult. Rheum on consult -following markers Possible angiography today Add Lipitor 40 mg daily Cardiology consult regarding BLAISE Pneumonia 12/05/2015 03/03/2016 Overview: Completed course of antibiotics today. She took azithromycin and cefipime Resolved. documented as of this encounter (statuses as of 11/11/2021) [facility]10-[facility]2020 History of Past illness Narrative* Problem Noted Date Resolved Date Hip pain, right 01/24/2020 05/21/2020 Intractable vomiting 04/17/2019 10/05/2019 MDD (major depressive disorder) 02/18/2019 02/20/2019 Vomiting 08/30/2018 02/20/2019 Mild intermittent asthma without complication 02/20/2019 Nausea 08/25/2017 08/26/2017 Acalculous cholecystitis 08/18/2017 018 Chronic cholecystitis 08/15/2017 08/24/2017 Overview: Added automatically from request for surgery [id number] Nausea and vomiting 07/23/2017 07/25/2017 Pneumonia 02/03/2017 06/16/2017 Encephalopathy acute 10/09/2016 10/28/2016 Panic attack 10/09/2016 10/28/2016 Hypokalemia 10/09/2016 07/25/2017 Alkalosis 10/07/2016 10/28/2016 Chest pain 09/17/2016 09/19/2016 Chest pain 08/20/2016 08/23/2016 Overview: Says she has had continuous chest pain for past few months Exam reveals chest wall and back tenderness ? fibromyalgia EKG showed some upsloping ST depression in lateral leads (same as EKG in 06/2016) Troponin awaited Based on presentation unlikely to be pain from ischemia Plan: 1. No further w/u if troponin negative and repeat EKG stable. QT prolongation 08/20/2016 08/23/2016 Overview: Hypokalemic when she came in She has also received multiple anti-emetics with potential for QT prolongation Plan: 1. Repeat EKG 2. Telemetry monitoring Right leg swelling 08/20/2016 08/23/2016 Overview: US to r/o DVT Malnutrition of mild degree 06/16/2016 0504/2016 Failure to thrive in adult 06/15/201610/28 Overview: Nausea and vomiting x2 weeks causing dehydration Most likely due to cyclophosphamide (given temporal relationship with onset of symptoms) Less likely due to increased intracranial pressure (may be pseudotumor cerebri V.S vitamin D excess V.S intracranial aneurysm possibly causing obstruction to CSF drainage system). 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 Gave 1 L bolus of LR, will continue with IVF infusion 75 ml/hr. 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 PRICING ANALYST negativeMRI:Acute right MCA infarct with multiple punctate acute infarctions on the contralateral side with multifocal anterior and posterior circulation stenoses with occlusion of a proximal sylvian branch of the Right middle cerebral artery concerning for underlying vasculopathy/vasculitis. CT chest on 12/04:scattered foci of groundglass attenuation involving both upper lobes, the right middle lobe, as well as the right lower lobe. DDx: includes ANCA vasculitis with 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 DRIVER involvement, APLA, Primary angiitis of 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 DRIVER,SLE LP: mild pleocytosis (lymphocyes 90),ptn slightly elevated :57 Plan: Angiography today Keep NPO,IVF 100 ml/hr If angiogram suggests vasculitis, to start high doses steroids IV . Possible brain biopsy at [facility]. Check other CTD and Vasculitis w/u Acute right MCA stroke 12/13/2015 6 Overview: Left sided Facial drooping since morning Associated with numbness and deviation of angle of mouth. Progressive weakness in small muscles of left hand. CT BRAIN WO CON: unremarkable. Neurology on consult. Plan:. Aspirin 325 mg PO. TELE Acute right MCA stroke 12/12/2015 7 Overview: Still c/o Left sided Facial drooping associated with numbness and deviation of angle of mouth.(with minimal improvement) Today she is having Rt hand numbness and tongue tip numbness MRI: Acute subsegmental right middle cerebral artery distribution infarction with additional punctate acute infarctions on the contralateral side superimposed on some chronic white matter insults including of the genu of the left internal capsule. Lipid panel: wnl other than HDL: 47 Plan:. Neurology on consult. Rheum on consult -following markers Possible angiography today Add Lipitor 40 mg daily Cardiology consult regarding BLAISE Pneumonia 12/05/2015 03/03/2016 Overview: Completed course of antibiotics today. She took azithromycin and cefipime Resolved. documented as of this encounter (statuses as of 11/17/2021) [facility]2020 History of Past illness Narrative* Problem Noted Date Resolved Date Hip pain, right 01/24/2020 05/21/2020 Intractable vomiting 04/17/2019 10/05/2019 MDD (major depressive disorder) 02/18/2019 02/20/2019 Vomiting 08/30/2018 02/20/2019 Mild intermittent asthma without complication 02/20/2019 Nausea 08/25/2017 08/26/2017 Acalculous cholecystitis 08/18/2017 018 Chronic cholecystitis 08/15/2017 08/24/2017 Overview: Added automatically from request for surgery [id number] Nausea and vomiting 07/23/2017 07/25/2017 Pneumonia 02/03/2017 06/16/2017 Encephalopathy acute 10/09/2016 10/28/2016 Panic attack 10/09/2016 10/28/2016 Hypokalemia 10/09/2016 07/25/2017 Alkalosis 10/07/2016 10/28/2016 Chest pain 09/17/2016 09/19/2016 Chest pain 08/20/2016 08/23/2016 Overview: Says she has had continuous chest pain for past few months Exam reveals chest wall and back tenderness ? fibromyalgia EKG showed some upsloping ST depression in lateral leads (same as EKG in 06/2016) Troponin awaited Based on presentation unlikely to be pain from ischemia Plan: 1. No further w/u if troponin negative and repeat EKG stable. QT prolongation 08/20/2016 08/23/2016 Overview: Hypokalemic when she came in She has also received multiple anti-emetics with potential for QT prolongation Plan: 1. Repeat EKG 2. Telemetry monitoring Right leg swelling 08/20/2016 08/23/2016 Overview: US to r/o DVT Malnutrition of mild degree 06/16/2016 0504/2016 Failure to thrive in adult 06/15/201610/28 Overview: Nausea and vomiting x2 weeks causing dehydration Most likely due to cyclophosphamide (given temporal relationship with onset of symptoms) Less likely due to increased intracranial pressure (may be pseudotumor cerebri V.S vitamin D excess V.S intracranial aneurysm possibly causing obstruction to CSF drainage system). 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 Gave 1 L bolus of LR, will continue with IVF infusion 75 ml/hr. 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 PRICING ANALYST negativeMRI:Acute right MCA infarct with multiple punctate acute infarctions on the contralateral side with multifocal anterior and posterior circulation stenoses with occlusion of a proximal sylvian branch of the Right middle cerebral artery concerning for underlying vasculopathy/vasculitis. CT chest on 12/04:scattered foci of groundglass attenuation involving both upper lobes, the right middle lobe, as well as the right lower lobe. DDx: includes ANCA vasculitis with 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 DRIVER involvement, APLA, Primary angiitis of 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 DRIVER,SLE LP: mild pleocytosis (lymphocyes 90),ptn slightly elevated :57 Plan: Angiography today Keep NPO,IVF 100 ml/hr If angiogram suggests vasculitis, to start high doses steroids IV . Possible brain biopsy at [facility]. Check other CTD and Vasculitis w/u Acute right MCA stroke 12/13/2015 6 Overview: Left sided Facial drooping since morning Associated with numbness and deviation of angle of mouth. Progressive weakness in small muscles of left hand. CT BRAIN WO CON: unremarkable. Neurology on consult. Plan:. Aspirin 325 mg PO. TELE Acute right MCA stroke 12/12/2015 7 Overview: Still c/o Left sided Facial drooping associated with numbness and deviation of angle of mouth.(with minimal improvement) Today she is having Rt hand numbness and tongue tip numbness MRI: Acute subsegmental right middle cerebral artery distribution infarction with additional punctate acute infarctions on the contralateral side superimposed on some chronic white matter insults including of the genu of the left internal capsule. Lipid panel: wnl other than HDL: 47 Plan:. Neurology on consult. Rheum on consult -following markers Possible angiography today Add Lipitor 40 mg daily Cardiology consult regarding BLAISE Pneumonia 12/05/2015 03/03/2016 Overview: Completed course of antibiotics today. She took azithromycin and cefipime Resolved. documented as of this encounter (statuses as of 11/18/2021) [facility] History of Past illness Narrative* Problem Noted Date Resolved Date Hip pain, right 01/24/2020 05/21/2020 Intractable vomiting 04/17/2019 10/05/2019 MDD (major depressive disorder) 02/18/2019 02/20/2019 Vomiting 08/30/2018 02/20/2019 Mild intermittent asthma without complication 02/20/2019 Nausea 08/25/2017 08/26/2017 Acalculous cholecystitis 08/18/2017 018 Chronic cholecystitis 08/15/2017 08/24/2017 Overview: Added automatically from request for surgery [id number] Nausea and vomiting 07/23/2017 07/25/2017 Pneumonia 02/03/2017 06/16/2017 Encephalopathy acute 10/09/2016 10/28/2016 Panic attack 10/09/2016 10/28/2016 Hypokalemia 10/09/2016 07/25/2017 Alkalosis 10/07/2016 10/28/2016 Chest pain 09/17/2016 09/19/2016 Chest pain 08/20/2016 08/23/2016 Overview: Says she has had continuous chest pain for past few months Exam reveals chest wall and back tenderness ? fibromyalgia EKG showed some upsloping ST depression in lateral leads (same as EKG in 06/2016) Troponin awaited Based on presentation unlikely to be pain from ischemia Plan: 1. No further w/u if troponin negative and repeat EKG stable. QT prolongation 08/20/2016 08/23/2016 Overview: Hypokalemic when she came in She has also received multiple anti-emetics with potential for QT prolongation Plan: 1. Repeat EKG 2. Telemetry monitoring Right leg swelling 08/20/2016 08/23/2016 Overview: US to r/o DVT Malnutrition of mild degree 06/16/2016 05/0 04/2016 Failure to thrive in adult 06/15/201610/28 Overview: Nausea and vomiting x2 weeks causing dehydration Most likely due to cyclophosphamide (given temporal relationship with onset of symptoms) Less likely due to increased intracranial pressure (may be pseudotumor cerebri V.S vitamin D excess V.S intracranial aneurysm possibly causing obstruction to CSF drainage system). 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 Gave 1 L bolus of LR, will continue with IVF infusion 75 ml/hr. 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 PRICING ANALYST negativeMRI:Acute right MCA infarct with multiple punctate acute infarctions on the contralateral side with multifocal anterior and posterior circulation stenoses with occlusion of a proximal sylvian branch of the Right middle cerebral artery concerning for underlying vasculopathy/vasculitis. CT chest on 12/04:scattered foci of groundglass attenuation involving both upper lobes, the right middle lobe, as well as the right lower lobe. DDx: includes ANCA vasculitis with 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 DRIVER involvement, APLA, Primary angiitis of 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 DRIVER,SLE LP: mild pleocytosis (lymphocyes 90),ptn slightly elevated :57 Plan: Angiography today Keep NPO,IVF 100 ml/hr If angiogram suggests vasculitis, to start high doses steroids IV . Possible brain biopsy at [facility]. Check other CTD and Vasculitis w/u Acute right MCA stroke 12/13/2015 6 Overview: Left sided Facial drooping since morning Associated with numbness and deviation of angle of mouth. Progressive weakness in small muscles of left hand. CT BRAIN WO CON: unremarkable. Neurology on consult. Plan:. Aspirin 325 mg PO. TELE Acute right MCA stroke 12/12/2015 7 Overview: Still c/o Left sided Facial drooping associated with numbness and deviation of angle of mouth.(with minimal improvement) Today she is having Rt hand numbness and tongue tip numbness MRI: Acute subsegmental right middle cerebral artery distribution infarction with additional punctate acute infarctions on the contralateral side superimposed on some chronic white matter insults including of the genu of the left internal capsule. Lipid panel: wnl other than HDL: 47 Plan:. Neurology on consult. Rheum on consult -following markers Possible angiography today Add Lipitor 40 mg daily Cardiology consult regarding BLAISE Pneumonia 12/05/2015 03/03/2016 Overview: Completed course of antibiotics today. She took azithromycin and cefipime Resolved. documented as of this encounter (statuses as of 11/23/2021) [facility] History of Past illness Narrative* Problem Noted Date Resolved Date Hip pain, right 01/24/2020 05/21/2020 Intractable vomiting 04/17/2019 10/05/2019 MDD (major depressive disorder) 02/18/2019 02/20/2019 Vomiting 08/30/2018 02/20/2019 Mild intermittent asthma without complication 02/20/2019 Nausea 08/25/2017 08/26/2017 Acalculous cholecystitis 08/18/2017 018 Chronic cholecystitis 08/15/2017 08/24/2017 Overview: Added automatically from request for surgery [id number] Nausea and vomiting 07/23/2017 07/25/2017 Pneumonia 02/03/2017 06/16/2017 Encephalopathy acute 10/09/2016 10/28/2016 Panic attack 10/09/2016 10/28/2016 Hypokalemia 10/09/2016 07/25/2017 Alkalosis 10/07/2016 10/28/2016 Chest pain 09/17/2016 09/19/2016 Chest pain 08/20/2016 08/23/2016 Overview: Says she has had continuous chest pain for past few months Exam reveals chest wall and back tenderness ? fibromyalgia EKG showed some upsloping ST depression in lateral leads (same as EKG in 06/2016) Troponin awaited Based on presentation unlikely to be pain from ischemia Plan: 1. No further w/u if troponin negative and repeat EKG stable. QT prolongation 08/20/2016 08/23/2016 Overview: Hypokalemic when she came in She has also received multiple anti-emetics with potential for QT prolongation Plan: 1. Repeat EKG 2. Telemetry monitoring Right leg swelling 08/20/2016 08/23/2016 Overview: US to r/o DVT Malnutrition of mild degree 06/16/2016 05/0 04/2016 Failure to thrive in adult 06/15/201610/28 Overview: Nausea and vomiting x2 weeks causing dehydration Most likely due to cyclophosphamide (given temporal relationship with onset of symptoms) Less likely due to increased intracranial pressure (may be pseudotumor cerebri V.S vitamin D excess V.S intracranial aneurysm possibly causing obstruction to CSF drainage system). 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 Gave 1 L bolus of LR, will continue with IVF infusion 75 ml/hr. 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 PRICING ANALYST negativeMRI:Acute right MCA infarct with multiple punctate acute infarctions on the contralateral side with multifocal anterior and posterior circulation stenoses with occlusion of a proximal sylvian branch of the Right middle cerebral artery concerning for underlying vasculopathy/vasculitis. CT chest on 12/04:scattered foci of groundglass attenuation involving both upper lobes, the right middle lobe, as well as the right lower lobe. DDx: includes ANCA vasculitis with 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 DRIVER involvement, APLA, Primary angiitis of 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 DRIVER,SLE LP: mild pleocytosis (lymphocyes 90),ptn slightly elevated :57 Plan: Angiography today Keep NPO,IVF 100 ml/hr If angiogram suggests vasculitis, to start high doses steroids IV . Possible brain biopsy at [facility]. Check other CTD and Vasculitis w/u Acute right MCA stroke 12/13/2015 6 Overview: Left sided Facial drooping since morning Associated with numbness and deviation of angle of mouth. Progressive weakness in small muscles of left hand. CT BRAIN WO CON: unremarkable. Neurology on consult. Plan:. Aspirin 325 mg PO. TELE Acute right MCA stroke 12/12/2015 Overview: Still c/o Left sided Facial drooping associated with numbness and deviation of angle of mouth.(with minimal improvement) Today she is having Rt hand numbness and tongue tip numbness MRI: Acute subsegmental right middle cerebral artery distribution infarction with additional punctate acute infarctions on the contralateral side superimposed on some chronic white matter insults including of the genu of the left internal capsule. Lipid panel: wnl other than HDL: 47 Plan:. Neurology on consult. Rheum on consult -following markers Possible angiography today Add Lipitor 40 mg daily Cardiology consult regarding BLAISE Pneumonia 12/05/2015 03/03/2016 Overview: Completed course of antibiotics today. She took azithromycin and cefipime Resolved. documented as of this encounter (statuses as of 01/15/2022) [facility]10-01-2020 History of Past illness Narrative* Problem Noted Date Resolved Date Hip pain, right 01/24/2020 05/21/2020 Intractable vomiting 04/17/2019 10/05/2019 MDD (major depressive disorder) 02/18/2019 02/20/2019 Vomiting 08/30/2018 02/20/2019 Mild intermittent asthma without complication 02/20/2019 Nausea 08/25/2017 08/26/2017 Acalculous cholecystitis 08/18/2017 018 Chronic cholecystitis 08/15/2017 08/24/2017 Overview: Added automatically from request for surgery [id number] Nausea and vomiting 07/23/2017 07/25/2017 Pneumonia 02/03/2017 06/16/2017 Encephalopathy acute 10/09/2016 10/28/2016 Panic attack 10/09/2016 10/28/2016 Hypokalemia 10/09/2016 07/25/2017 Alkalosis 10/07/2016 10/28/2016 Chest pain 09/17/2016 09/19/2016 Chest pain 08/20/2016 08/23/2016 Overview: Says she has had continuous chest pain for past few months Exam reveals chest wall and back tenderness ? fibromyalgia EKG showed some upsloping ST depression in lateral leads (same as EKG in 06/2016) Troponin awaited Based on presentation unlikely to be pain from ischemia Plan: 1. No further w/u if troponin negative and repeat EKG stable. QT prolongation 08/20/2016 08/23/2016 Overview: Hypokalemic when she came in She has also received multiple anti-emetics with potential for QT prolongation Plan: 1. Repeat EKG 2. Telemetry monitoring Right leg swelling 08/20/2016 08/23/2016 Overview: US to r/o DVT Malnutrition of mild degree 06/16/201604/2016 Failure to thrive in adult 06/15/201610/28 Overview: Nausea and vomiting x2 weeks causing dehydration Most likely due to cyclophosphamide (given temporal relationship with onset of symptoms) Less likely due to increased intracranial pressure (may be pseudotumor cerebri V.S vitamin D excess V.S intracranial aneurysm possibly causing obstruction to CSF drainage system). 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 Gave 1 L bolus of LR, will continue with IVF infusion 75 ml/hr. 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 PRICING ANALYST negativeMRI:Acute right MCA infarct with multiple punctate acute infarctions on the contralateral side with multifocal anterior and posterior circulation stenoses with occlusion of a proximal sylvian branch of the Right middle cerebral artery concerning for underlying vasculopathy/vasculitis. CT chest on 12/04:scattered foci of groundglass attenuation involving both upper lobes, the right middle lobe, as well as the right lower lobe. DDx: includes ANCA vasculitis with 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 DRIVER involvement, APLA, Primary angiitis of 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 DRIVER,SLE LP: mild pleocytosis (lymphocyes 90),ptn slightly elevated :57 Plan: Angiography today Keep NPO,IVF 100 ml/hr If angiogram suggests vasculitis, to start high doses steroids IV . Possible brain biopsy at [facility]. Check other CTD and Vasculitis w/u Acute right MCA stroke 12/13/2015 6 Overview: Left sided Facial drooping since morning Associated with numbness and deviation of angle of mouth. Progressive weakness in small muscles of left hand. CT BRAIN WO CON: unremarkable. Neurology on consult. Plan:. Aspirin 325 mg PO. TELE Acute right MCA stroke 12/12/2015 7 Overview: Still c/o Left sided Facial drooping associated with numbness and deviation of angle of mouth.(with minimal improvement) Today she is having Rt hand numbness and tongue tip numbness MRI: Acute subsegmental right middle cerebral artery distribution infarction with additional punctate acute infarctions on the contralateral side superimposed on some chronic white matter insults including of the genu of the left internal capsule. Lipid panel: wnl other than HDL: 47 Plan:. Neurology on consult. Rheum on consult -following markers Possible angiography today Add Lipitor 40 mg daily Cardiology consult regarding BLAISE Pneumonia 12/05/2015 03/03/2016 Overview: Completed course of antibiotics today. She took azithromycin and cefipime Resolved. documented as of this encounter (statuses as of 01/16/2022) [facility]10-01-2020 History of Past illness Narrative* Problem Noted Date Resolved Date Hip pain, right 01/24/2020 05/21/2020 Intractable vomiting 04/17/2019 10/05/2019 MDD (major depressive disorder) 02/18/2019 02/20/2019 Vomiting 08/30/2018 02/20/2019 Mild intermittent asthma without complication 02/20/2019 Nausea 08/25/2017 08/26/2017 Acalculous cholecystitis 08/18/2017 018 Chronic cholecystitis 08/15/2017 08/24/2017 Overview: Added automatically from request for surgery [id number] Nausea and vomiting 07/23/2017 07/25/2017 Pneumonia 02/03/2017 06/16/2017 Encephalopathy acute 10/09/2016 10/28/2016 Panic attack 10/09/2016 10/28/2016 Hypokalemia 10/09/2016 07/25/2017 Alkalosis 10/07/2016 10/28/2016 Chest pain 09/17/2016 09/19/2016 Chest pain 08/20/2016 08/23/2016 Overview: Says she has had continuous chest pain for past few months Exam reveals chest wall and back tenderness ? fibromyalgia EKG showed some upsloping ST depression in lateral leads (same as EKG in 06/2016) Troponin awaited Based on presentation unlikely to be pain from ischemia Plan: 1. No further w/u if troponin negative and repeat EKG stable. QT prolongation 08/20/2016 08/23/2016 Overview: Hypokalemic when she came in She has also received multiple anti-emetics with potential for QT prolongation Plan: 1. Repeat EKG 2. Telemetry monitoring Right leg swelling 08/20/2016 08/23/2016 Overview: US to r/o DVT Malnutrition of mild degree 06/16/2016 05/04/2016 Failure to thrive in adult 06/15/201610/28 Overview: Nausea and vomiting x2 weeks causing dehydration Most likely due to cyclophosphamide (given temporal relationship with onset of symptoms) Less likely due to increased intracranial pressure (may be pseudotumor cerebri V.S vitamin D excess V.S intracranial aneurysm possibly causing obstruction to CSF drainage system). 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 Gave 1 L bolus of LR, will continue with IVF infusion 75 ml/hr. 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 PRICING ANALYST negativeMRI:Acute right MCA infarct with multiple punctate acute infarctions on the contralateral side with multifocal anterior and posterior circulation stenoses with occlusion of a proximal sylvian branch of the Right middle cerebral artery concerning for underlying vasculopathy/vasculitis. CT chest on 12/04:scattered foci of groundglass attenuation involving both upper lobes, the right middle lobe, as well as the right lower lobe. DDx: includes ANCA vasculitis with 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 DRIVER involvement, APLA, Primary angiitis of 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 DRIVER,SLE LP: mild pleocytosis (lymphocyes 90),ptn slightly elevated :57 Plan: Angiography today Keep NPO,IVF 100 ml/hr If angiogram suggests vasculitis, to start high doses steroids IV . Possible brain biopsy at [facility]. Check other CTD and Vasculitis w/u Acute right MCA stroke 12/13/2015 6 Overview: Left sided Facial drooping since morning Associated with numbness and deviation of angle of mouth. Progressive weakness in small muscles of left hand. CT BRAIN WO CON: unremarkable. Neurology on consult. Plan:. Aspirin 325 mg PO. TELE Acute right MCA stroke 12/12/2015 7 Overview: Still c/o Left sided Facial drooping associated with numbness and deviation of angle of mouth.(with minimal improvement) Today she is having Rt hand numbness and tongue tip numbness MRI: Acute subsegmental right middle cerebral artery distribution infarction with additional punctate acute infarctions on the contralateral side superimposed on some chronic white matter insults including of the genu of the left internal capsule. Lipid panel: wnl other than HDL: 47 Plan:. Neurology on consult. Rheum on consult -following markers Possible angiography today Add Lipitor 40 mg daily Cardiology consult regarding BLAISE Pneumonia 12/05/2015 03/03/2016 Overview: Completed course of antibiotics today. She took azithromycin and cefipime Resolved. documented as of this encounter (statuses as of 01/16/2022) [facility]10[facility]2020 History of Past illness Narrative* Problem Noted Date Resolved Date Hip pain, right 01/24/2020 05/21/2020 Intractable vomiting 04/17/2019 10/05/2019 MDD (major depressive disorder) 02/18/2019 02/20/2019 Vomiting 08/30/2018 02/20/2019 Mild intermittent asthma without complication 02/20/2019 Nausea 08/25/2017 08/26/2017 Acalculous cholecystitis 08/18/2017 018 Chronic cholecystitis 08/15/2017 08/24/2017 Overview: Added automatically from request for surgery [id number] Nausea and vomiting 07/23/2017 07/25/2017 Pneumonia 02/03/2017 06/16/2017 Encephalopathy acute 10/09/2016 10/28/2016 Panic attack 10/09/2016 10/28/2016 Hypokalemia 10/09/2016 07/25/2017 Alkalosis 10/07/2016 10/28/2016 Chest pain 09/17/2016 09/19/2016 Chest pain 08/20/2016 08/23/2016 Overview: Says she has had continuous chest pain for past few months Exam reveals chest wall and back tenderness ? fibromyalgia EKG showed some upsloping ST depression in lateral leads (same as EKG in 06/2016) Troponin awaited Based on presentation unlikely to be pain from ischemia Plan: 1. No further w/u if troponin negative and repeat EKG stable. QT prolongation 08/20/2016 08/23/2016 Overview: Hypokalemic when she came in She has also received multiple anti-emetics with potential for QT prolongation Plan: 1. Repeat EKG 2. Telemetry monitoring Right leg swelling 08/20/2016 08/23/2016 Overview: US to r/o DVT Malnutrition of mild degree 06/16/2016 0504/2016 Failure to thrive in adult 06/15/201610/28 Overview: Nausea and vomiting x2 weeks causing dehydration Most likely due to cyclophosphamide (given temporal relationship with onset of symptoms) Less likely due to increased intracranial pressure (may be pseudotumor cerebri V.S vitamin D excess V.S intracranial aneurysm possibly causing obstruction to CSF drainage system). 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 Gave 1 L bolus of LR, will continue with IVF infusion 75 ml/hr. 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 PRICING ANALYST negativeMRI:Acute right MCA infarct with multiple punctate acute infarctions on the contralateral side with multifocal anterior and posterior circulation stenoses with occlusion of a proximal sylvian branch of the Right middle cerebral artery concerning for underlying vasculopathy/vasculitis. CT chest on 12/04:scattered foci of groundglass attenuation involving both upper lobes, the right middle lobe, as well as the right lower lobe. DDx: includes ANCA vasculitis with 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 DRIVER involvement, APLA, Primary angiitis of 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 DRIVER,SLE LP: mild pleocytosis (lymphocyes 90),ptn slightly elevated :57 Plan: Angiography today Keep NPO,IVF 100 ml/hr If angiogram suggests vasculitis, to start high doses steroids IV . Possible brain biopsy at [facility]. Check other CTD and Vasculitis w/u Acute right MCA stroke 12/13/2015 6 Overview: Left sided Facial drooping since morning Associated with numbness and deviation of angle of mouth. Progressive weakness in small muscles of left hand. CT BRAIN WO CON: unremarkable. Neurology on consult. Plan:. Aspirin 325 mg PO. TELE Acute right MCA stroke 12/12/2015 7 Overview: Still c/o Left sided Facial drooping associated with numbness and deviation of angle of mouth.(with minimal improvement) Today she is having Rt hand numbness and tongue tip numbness MRI: Acute subsegmental right middle cerebral artery distribution infarction with additional punctate acute infarctions on the contralateral side superimposed on some chronic white matter insults including of the genu of the left internal capsule. Lipid panel: wnl other than HDL: 47 Plan:. Neurology on consult. Rheum on consult -following markers Possible angiography today Add Lipitor 40 mg daily Cardiology consult regarding BLAISE Pneumonia 12/05/2015 03/03/2016 Overview: Completed course of antibiotics today. She took azithromycin and cefipime Resolved. documented as of this encounter (statuses as of 01/25/2022) [facility] History of Past illness Narrative* Problem Noted Date Resolved Date Hip pain, right 01/24/2020 05/21/2020 Intractable vomiting 04/17/2019 10/05/2019 MDD (major depressive disorder) 02/18/2019 02/20/2019 Vomiting 08/30/2018 02/20/2019 Mild intermittent asthma without complication 02/20/2019 Nausea 08/25/2017 08/26/2017 Acalculous cholecystitis 08/18/2017 018 Chronic cholecystitis 08/15/2017 08/24/2017 Overview: Added automatically from request for surgery [id number] Nausea and vomiting 07/23/2017 07/25/2017 Pneumonia 02/03/2017 06/16/2017 Encephalopathy acute 10/09/2016 10/28/2016 Panic attack 10/09/2016 10/28/2016 Hypokalemia 10/09/2016 07/25/2017 Alkalosis 10/07/2016 10/28/2016 Chest pain 09/17/2016 09/19/2016 Chest pain 08/20/2016 08/23/2016 Overview: Says she has had continuous chest pain for past few months Exam reveals chest wall and back tenderness ? fibromyalgia EKG showed some upsloping ST depression in lateral leads (same as EKG in 06/2016) Troponin awaited Based on presentation unlikely to be pain from ischemia Plan: 1. No further w/u if troponin negative and repeat EKG stable. QT prolongation 08/20/2016 08/23/2016 Overview: Hypokalemic when she came in She has also received multiple anti-emetics with potential for QT prolongation Plan: 1. Repeat EKG 2. Telemetry monitoring Right leg swelling 08/20/2016 08/23/2016 Overview: US to r/o DVT Malnutrition of mild degree 06/16/2016 0504/2016 Failure to thrive in adult 06/15/201610/28 Overview: Nausea and vomiting x2 weeks causing dehydration Most likely due to cyclophosphamide (given temporal relationship with onset of symptoms) Less likely due to increased intracranial pressure (may be pseudotumor cerebri V.S vitamin D excess V.S intracranial aneurysm possibly causing obstruction to CSF drainage system). 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 Gave 1 L bolus of LR, will continue with IVF infusion 75 ml/hr. 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 PRICING ANALYST negativeMRI:Acute right MCA infarct with multiple punctate acute infarctions on the contralateral side with multifocal anterior and posterior circulation stenoses with occlusion of a proximal sylvian branch of the Right middle cerebral artery concerning for underlying vasculopathy/vasculitis. CT chest on 12/04:scattered foci of groundglass attenuation involving both upper lobes, the right middle lobe, as well as the right lower lobe. DDx: includes ANCA vasculitis with 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 DRIVER involvement, APLA, Primary angiitis of 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 DRIVER,SLE LP: mild pleocytosis (lymphocyes 90),ptn slightly elevated :57 Plan: Angiography today Keep NPO,IVF 100 ml/hr If angiogram suggests vasculitis, to start high doses steroids IV . Possible brain biopsy at [facility]. Check other CTD and Vasculitis w/u Acute right MCA stroke 12/13/2015 6 Overview: Left sided Facial drooping since morning Associated with numbness and deviation of angle of mouth. Progressive weakness in small muscles of left hand. CT BRAIN WO CON: unremarkable. Neurology on consult. Plan:. Aspirin 325 mg PO. TELE Acute right MCA stroke 12/12/2015 7 Overview: Still c/o Left sided Facial drooping associated with numbness and deviation of angle of mouth.(with minimal improvement) Today she is having Rt hand numbness and tongue tip numbness MRI: Acute subsegmental right middle cerebral artery distribution infarction with additional punctate acute infarctions on the contralateral side superimposed on some chronic white matter insults including of the genu of the left internal capsule. Lipid panel: wnl other than HDL: 47 Plan:. Neurology on consult. Rheum on consult -following markers Possible angiography today Add Lipitor 40 mg daily Cardiology consult regarding BLAISE Pneumonia 12/05/2015 03/03/2016 Overview: Completed course of antibiotics today. She took azithromycin and cefipime Resolved. documented as of this encounter (statuses as of 04/09/2022) [facility] History of Past illness Narrative* Problem Noted Date Resolved Date Hip pain, right 01/24/2020 05/21/2020 Intractable vomiting 04/17/2019 10/05/2019 MDD (major depressive disorder) 02/18/2019 02/20/2019 Vomiting 08/30/2018 02/20/2019 Mild intermittent asthma without complication 02/20/2019 Nausea 08/25/2017 08/26/2017 Acalculous cholecystitis 08/18/2017 018 Chronic cholecystitis 08/15/2017 08/24/2017 Overview: Added automatically from request for surgery [id number] Nausea and vomiting 07/23/2017 07/25/2017 Pneumonia 02/03/2017 06/16/2017 Encephalopathy acute 10/09/2016 10/28/2016 Panic attack 10/09/2016 10/28/2016 Hypokalemia 10/09/2016 07/25/2017 Alkalosis 10/07/2016 10/28/2016 Chest pain 09/17/2016 09/19/2016 Chest pain 08/20/2016 08/23/2016 Overview: Says she has had continuous chest pain for past few months Exam reveals chest wall and back tenderness ? fibromyalgia EKG showed some upsloping ST depression in lateral leads (same as EKG in 06/2016) Troponin awaited Based on presentation unlikely to be pain from ischemia Plan: 1. No further w/u if troponin negative and repeat EKG stable. QT prolongation 08/20/2016 08/23/2016 Overview: Hypokalemic when she came in She has also received multiple anti-emetics with potential for QT prolongation Plan: 1. Repeat EKG 2. Telemetry monitoring Right leg swelling 08/20/2016 08/23/2016 Overview: US to r/o DVT Malnutrition of mild degree 06/16/2016 05/0 04/2016 Failure to thrive in adult 06/15/201610/28 Overview: Nausea and vomiting x2 weeks causing dehydration Most likely due to cyclophosphamide (given temporal relationship with onset of symptoms) Less likely due to increased intracranial pressure (may be pseudotumor cerebri V.S vitamin D excess V.S intracranial aneurysm possibly causing obstruction to CSF drainage system). 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 Gave 1 L bolus of LR, will continue with IVF infusion 75 ml/hr. 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 PRICING ANALYST negativeMRI:Acute right MCA infarct with multiple punctate acute infarctions on the contralateral side with multifocal anterior and posterior circulation stenoses with occlusion of a proximal sylvian branch of the Right middle cerebral artery concerning for underlying vasculopathy/vasculitis. CT chest on 12/04:scattered foci of groundglass attenuation involving both upper lobes, the right middle lobe, as well as the right lower lobe. DDx: includes ANCA vasculitis with 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 DRIVER involvement, APLA, Primary angiitis of 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 DRIVER,SLE LP: mild pleocytosis (lymphocyes 90),ptn slightly elevated :57 Plan: Angiography today Keep NPO,IVF 100 ml/hr If angiogram suggests vasculitis, to start high doses steroids IV . Possible brain biopsy at [facility]. Check other CTD and Vasculitis w/u Acute right MCA stroke 12/13/2015 6 Overview: Left sided Facial drooping since morning Associated with numbness and deviation of angle of mouth. Progressive weakness in small muscles of left hand. CT BRAIN WO CON: unremarkable. Neurology on consult. Plan:. Aspirin 325 mg PO. TELE Acute right MCA stroke 12/12/2015 7 Overview: Still c/o Left sided Facial drooping associated with numbness and deviation of angle of mouth.(with minimal improvement) Today she is having Rt hand numbness and tongue tip numbness MRI: Acute subsegmental right middle cerebral artery distribution infarction with additional punctate acute infarctions on the contralateral side superimposed on some chronic white matter insults including of the genu of the left internal capsule. Lipid panel: wnl other than HDL: 47 Plan:. Neurology on consult. Rheum on consult -following markers Possible angiography today Add Lipitor 40 mg daily Cardiology consult regarding BLAISE Pneumonia 12/05/2015 03/03/2016 Overview: Completed course of antibiotics today. She took azithromycin and cefipime Resolved. documented as of this encounter (statuses as of 06/03/2022) [facility]10-01-2020 History of Past illness Narrative* Problem Noted Date Resolved Date Hip pain, right 01/24/2020 05/21/2020 Intractable vomiting 04/17/2019 10/05/2019 MDD (major depressive disorder) 02/18/2019 02/20/2019 Vomiting 08/30/2018 02/20/2019 Mild intermittent asthma without complication 02/20/2019 Nausea 08/25/2017 08/26/2017 Acalculous cholecystitis 08/18/2017 018 Chronic cholecystitis 08/15/2017 08/24/2017 Overview: Added automatically from request for surgery [id number] Nausea and vomiting 07/23/2017 07/25/2017 Pneumonia 02/03/2017 06/16/2017 Encephalopathy acute 10/09/2016 10/28/2016 Panic attack 10/09/2016 10/28/2016 Hypokalemia 10/09/2016 07/25/2017 Alkalosis 10/07/2016 10/28/2016 Chest pain 09/17/2016 09/19/2016 Chest pain 08/20/2016 08/23/2016 Overview: Says she has had continuous chest pain for past few months Exam reveals chest wall and back tenderness ? fibromyalgia EKG showed some upsloping ST depression in lateral leads (same as EKG in 06/2016) Troponin awaited Based on presentation unlikely to be pain from ischemia Plan: 1. No further w/u if troponin negative and repeat EKG stable. QT prolongation 08/20/2016 08/23/2016 Overview: Hypokalemic when she came in She has also received multiple anti-emetics with potential for QT prolongation Plan: 1. Repeat EKG 2. Telemetry monitoring Right leg swelling 08/20/2016 08/23/2016 Overview: US to r/o DVT Malnutrition of mild degree 06/16/201604/2016 Failure to thrive in adult 06/15/201610/28 Overview: Nausea and vomiting x2 weeks causing dehydration Most likely due to cyclophosphamide (given temporal relationship with onset of symptoms) Less likely due to increased intracranial pressure (may be pseudotumor cerebri V.S vitamin D excess V.S intracranial aneurysm possibly causing obstruction to CSF drainage system). 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 Gave 1 L bolus of LR, will continue with IVF infusion 75 ml/hr. 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 PRICING ANALYST negativeMRI:Acute right MCA infarct with multiple punctate acute infarctions on the contralateral side with multifocal anterior and posterior circulation stenoses with occlusion of a proximal sylvian branch of the Right middle cerebral artery concerning for underlying vasculopathy/vasculitis. CT chest on 12/04:scattered foci of groundglass attenuation involving both upper lobes, the right middle lobe, as well as the right lower lobe. DDx: includes ANCA vasculitis with 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 DRIVER involvement, APLA, Primary angiitis of 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 DRIVER,SLE LP: mild pleocytosis (lymphocyes 90),ptn slightly elevated :57 Plan: Angiography today Keep NPO,IVF 100 ml/hr If angiogram suggests vasculitis, to start high doses steroids IV . Possible brain biopsy at [facility]. Check other CTD and Vasculitis w/u Acute right MCA stroke 12/13/2015 6 Overview: Left sided Facial drooping since morning Associated with numbness and deviation of angle of mouth. Progressive weakness in small muscles of left hand. CT BRAIN WO CON: unremarkable. Neurology on consult. Plan:. Aspirin 325 mg PO. TELE Acute right MCA stroke 12/12/2015 7 Overview: Still c/o Left sided Facial drooping associated with numbness and deviation of angle of mouth.(with minimal improvement) Today she is having Rt hand numbness and tongue tip numbness MRI: Acute subsegmental right middle cerebral artery distribution infarction with additional punctate acute infarctions on the contralateral side superimposed on some chronic white matter insults including of the genu of the left internal capsule. Lipid panel: wnl other than HDL: 47 Plan:. Neurology on consult. Rheum on consult -following markers Possible angiography today Add Lipitor 40 mg daily Cardiology consult regarding BLAISE Pneumonia 12/05/2015 03/03/2016 Overview: Completed course of antibiotics today. She took azithromycin and cefipime Resolved. documented as of this encounter (statuses as of 06/14/2022) [facility]10-01-2020 History of Past illness Narrative* Problem Noted Date Resolved Date Hip pain, right 01/24/2020 05/21/2020 Intractable vomiting 04/17/2019 10/05/2019 MDD (major depressive disorder) 02/18/2019 02/20/2019 Vomiting 08/30/2018 02/20/2019 Mild intermittent asthma without complication 02/20/2019 Nausea 08/25/2017 08/26/2017 Acalculous cholecystitis 08/18/2017 018 Chronic cholecystitis 08/15/2017 08/24/2017 Overview: Added automatically from request for surgery [id number] Nausea and vomiting 07/23/2017 07/25/2017 Pneumonia 02/03/2017 06/16/2017 Encephalopathy acute 10/09/2016 10/28/2016 Panic attack 10/09/2016 10/28/2016 Hypokalemia 10/09/2016 07/25/2017 Alkalosis 10/07/2016 10/28/2016 Chest pain 09/17/2016 09/19/2016 Chest pain 08/20/2016 08/23/2016 Overview: Says she has had continuous chest pain for past few months Exam reveals chest wall and back tenderness ? fibromyalgia EKG showed some upsloping ST depression in lateral leads (same as EKG in 06/2016) Troponin awaited Based on presentation unlikely to be pain from ischemia Plan: 1. No further w/u if troponin negative and repeat EKG stable. QT prolongation 08/20/2016 08/23/2016 Overview: Hypokalemic when she came in She has also received multiple anti-emetics with potential for QT prolongation Plan: 1. Repeat EKG 2. Telemetry monitoring Right leg swelling 08/20/2016 08/23/2016 Overview: US to r/o DVT Malnutrition of mild degree 06/16/201604/2016 Failure to thrive in adult 06/15/201610/28 Overview: Nausea and vomiting x2 weeks causing dehydration Most likely due to cyclophosphamide (given temporal relationship with onset of symptoms) Less likely due to increased intracranial pressure (may be pseudotumor cerebri V.S vitamin D excess V.S intracranial aneurysm possibly causing obstruction to CSF drainage system). 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 Gave 1 L bolus of LR, will continue with IVF infusion 75 ml/hr. 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 PRICING ANALYST negativeMRI:Acute right MCA infarct with multiple punctate acute infarctions on the contralateral side with multifocal anterior and posterior circulation stenoses with occlusion of a proximal sylvian branch of the Right middle cerebral artery concerning for underlying vasculopathy/vasculitis. CT chest on 12/04:scattered foci of groundglass attenuation involving both upper lobes, the right middle lobe, as well as the right lower lobe. DDx: includes ANCA vasculitis with 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 DRIVER involvement, APLA, Primary angiitis of 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 DRIVER,SLE LP: mild pleocytosis (lymphocyes 90),ptn slightly elevated :57 Plan: Angiography today Keep NPO,IVF 100 ml/hr If angiogram suggests vasculitis, to start high doses steroids IV . Possible brain biopsy at [facility]. Check other CTD and Vasculitis w/u Acute right MCA stroke 12/13/2015 6 Overview: Left sided Facial drooping since morning Associated with numbness and deviation of angle of mouth. Progressive weakness in small muscles of left hand. CT BRAIN WO CON: unremarkable. Neurology on consult. Plan:. Aspirin 325 mg PO. TELE Acute right MCA stroke 12/12/2015 7 Overview: Still c/o Left sided Facial drooping associated with numbness and deviation of angle of mouth.(with minimal improvement) Today she is having Rt hand numbness and tongue tip numbness MRI: Acute subsegmental right middle cerebral artery distribution infarction with additional punctate acute infarctions on the contralateral side superimposed on some chronic white matter insults including of the genu of the left internal capsule. Lipid panel: wnl other than HDL: 47 Plan:. Neurology on consult. Rheum on consult -following markers Possible angiography today Add Lipitor 40 mg daily Cardiology consult regarding BLAISE Pneumonia 12/05/2015 03/03/2016 Overview: Completed course of antibiotics today. She took azithromycin and cefipime Resolved. documented as of this encounter (statuses as of 06/21/2022) [facility]10-[facility]2020 History of Past illness Narrative* Problem Noted Date Resolved Date Hip pain, right 01/24/2020 05/21/2020 Intractable vomiting 04/17/2019 10/05/2019 MDD (major depressive disorder) 02/18/2019 02/20/2019 Vomiting 08/30/2018 02/20/2019 Mild intermittent asthma without complication 02/20/2019 Nausea 08/25/2017 08/26/2017 Acalculous cholecystitis 08/18/2017 018 Chronic cholecystitis 08/15/2017 08/24/2017 Overview: Added automatically from request for surgery [id number] Nausea and vomiting 07/23/2017 07/25/2017 Pneumonia 02/03/2017 06/16/2017 Encephalopathy acute 10/09/2016 10/28/2016 Panic attack 10/09/2016 10/28/2016 Hypokalemia 10/09/2016 07/25/2017 Alkalosis 10/07/2016 10/28/2016 Chest pain 09/17/2016 09/19/2016 Chest pain 08/20/2016 08/23/2016 Overview: Says she has had continuous chest pain for past few months Exam reveals chest wall and back tenderness ? fibromyalgia EKG showed some upsloping ST depression in lateral leads (same as EKG in 06/2016) Troponin awaited Based on presentation unlikely to be pain from ischemia Plan: 1. No further w/u if troponin negative and repeat EKG stable. QT prolongation 08/20/2016 08/23/2016 Overview: Hypokalemic when she came in She has also received multiple anti-emetics with potential for QT prolongation Plan: 1. Repeat EKG 2. Telemetry monitoring Right leg swelling 08/20/2016 08/23/2016 Overview: US to r/o DVT Malnutrition of mild degree 06/16/2016 05/04/2016 Failure to thrive in adult 06/15/201610/28 Overview: Nausea and vomiting x2 weeks causing dehydration Most likely due to cyclophosphamide (given temporal relationship with onset of symptoms) Less likely due to increased intracranial pressure (may be pseudotumor cerebri V.S vitamin D excess V.S intracranial aneurysm possibly causing obstruction to CSF drainage system). 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 Gave 1 L bolus of LR, will continue with IVF infusion 75 ml/hr. 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 PRICING ANALYST negativeMRI:Acute right MCA infarct with multiple punctate acute infarctions on the contralateral side with multifocal anterior and posterior circulation stenoses with occlusion of a proximal sylvian branch of the Right middle cerebral artery concerning for underlying vasculopathy/vasculitis. CT chest on 12/04:scattered foci of groundglass attenuation involving both upper lobes, the right middle lobe, as well as the right lower lobe. DDx: includes ANCA vasculitis with 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 DRIVER involvement, APLA, Primary angiitis of 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 DRIVER,SLE LP: mild pleocytosis (lymphocyes 90),ptn slightly elevated :57 Plan: Angiography today Keep NPO,IVF 100 ml/hr If angiogram suggests vasculitis, to start high doses steroids IV . Possible brain biopsy at [facility]. Check other CTD and Vasculitis w/u Acute right MCA stroke 12/13/2015 6 Overview: Left sided Facial drooping since morning Associated with numbness and deviation of angle of mouth. Progressive weakness in small muscles of left hand. CT BRAIN WO CON: unremarkable. Neurology on consult. Plan:. Aspirin 325 mg PO. TELE Acute right MCA stroke 12/12/2015 7 Overview: Still c/o Left sided Facial drooping associated with numbness and deviation of angle of mouth.(with minimal improvement) Today she is having Rt hand numbness and tongue tip numbness MRI: Acute subsegmental right middle cerebral artery distribution infarction with additional punctate acute infarctions on the contralateral side superimposed on some chronic white matter insults including of the genu of the left internal capsule. Lipid panel: wnl other than HDL: 47 Plan:. Neurology on consult. Rheum on consult -following markers Possible angiography today Add Lipitor 40 mg daily Cardiology consult regarding BLAISE Pneumonia 12/05/2015 03/03/2016 Overview: Completed course of antibiotics today. She took azithromycin and cefipime Resolved. documented as of this encounter (statuses as of 06/30/2022) [facility]2020 History of Past illness Narrative* Problem Noted Date Resolved Date Hip pain, right 01/24/2020 05/21/2020 Intractable vomiting 04/17/2019 10/05/2019 MDD (major depressive disorder) 02/18/2019 02/20/2019 Vomiting 08/30/2018 02/20/2019 Mild intermittent asthma without complication 02/20/2019 Nausea 08/25/2017 08/26/2017 Acalculous cholecystitis 08/18/2017 018 Chronic cholecystitis 08/15/2017 08/24/2017 Overview: Added automatically from request for surgery [id number] Nausea and vomiting 07/23/2017 07/25/2017 Pneumonia 02/03/2017 06/16/2017 Encephalopathy acute 10/09/2016 10/28/2016 Panic attack 10/09/2016 10/28/2016 Hypokalemia 10/09/2016 07/25/2017 Alkalosis 10/07/2016 10/28/2016 Chest pain 09/17/2016 09/19/2016 Chest pain 08/20/2016 08/23/2016 Overview: Says she has had continuous chest pain for past few months Exam reveals chest wall and back tenderness ? fibromyalgia EKG showed some upsloping ST depression in lateral leads (same as EKG in 06/2016) Troponin awaited Based on presentation unlikely to be pain from ischemia Plan: 1. No further w/u if troponin negative and repeat EKG stable. QT prolongation 08/20/2016 08/23/2016 Overview: Hypokalemic when she came in She has also received multiple anti-emetics with potential for QT prolongation Plan: 1. Repeat EKG 2. Telemetry monitoring Right leg swelling 08/20/2016 08/23/2016 Overview: US to r/o DVT Malnutrition of mild degree 06/16/2016 05/04/2016 Failure to thrive in adult 06/15/201610/28 Overview: Nausea and vomiting x2 weeks causing dehydration Most likely due to cyclophosphamide (given temporal relationship with onset of symptoms) Less likely due to increased intracranial pressure (may be pseudotumor cerebri V.S vitamin D excess V.S intracranial aneurysm possibly causing obstruction to CSF drainage system). 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 Gave 1 L bolus of LR, will continue with IVF infusion 75 ml/hr. 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 PRICING ANALYST negativeMRI:Acute right MCA infarct with multiple punctate acute infarctions on the contralateral side with multifocal anterior and posterior circulation stenoses with occlusion of a proximal sylvian branch of the Right middle cerebral artery concerning for underlying vasculopathy/vasculitis. CT chest on 12/04:scattered foci of groundglass attenuation involving both upper lobes, the right middle lobe, as well as the right lower lobe. DDx: includes ANCA vasculitis with 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 DRIVER involvement, APLA, Primary angiitis of 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 DRIVER,SLE LP: mild pleocytosis (lymphocyes 90),ptn slightly elevated :57 Plan: Angiography today Keep NPO,IVF 100 ml/hr If angiogram suggests vasculitis, to start high doses steroids IV . Possible brain biopsy at [facility]. Check other CTD and Vasculitis w/u Acute right MCA stroke 12/13/2015 6 Overview: Left sided Facial drooping since morning Associated with numbness and deviation of angle of mouth. Progressive weakness in small muscles of left hand. CT BRAIN WO CON: unremarkable. Neurology on consult. Plan:. Aspirin 325 mg PO. TELE Acute right MCA stroke 12/12/2015 7 Overview: Still c/o Left sided Facial drooping associated with numbness and deviation of angle of mouth.(with minimal improvement) Today she is having Rt hand numbness and tongue tip numbness MRI: Acute subsegmental right middle cerebral artery distribution infarction with additional punctate acute infarctions on the contralateral side superimposed on some chronic white matter insults including of the genu of the left internal capsule. Lipid panel: wnl other than HDL: 47 Plan:. Neurology on consult. Rheum on consult -following markers Possible angiography today Add Lipitor 40 mg daily Cardiology consult regarding BLAISE Pneumonia 12/05/2015 03/03/2016 Overview: Completed course of antibiotics today. She took azithromycin and cefipime Resolved. documented as of this encounter (statuses as of 07/06/2022) [facility] History of Past illness Narrative* Problem Noted Date Resolved Date Hip pain, right 01/24/2020 05/21/2020 Intractable vomiting 04/17/2019 10/05/2019 MDD (major depressive disorder) 02/18/2019 02/20/2019 Vomiting 08/30/2018 02/20/2019 Mild intermittent asthma without complication 02/20/2019 Nausea 08/25/2017 08/26/2017 Acalculous cholecystitis 08/18/2017 018 Chronic cholecystitis 08/15/2017 08/24/2017 Overview: Added automatically from request for surgery [id number] Nausea and vomiting 07/23/2017 07/25/2017 Pneumonia 02/03/2017 06/16/2017 Encephalopathy acute 10/09/2016 10/28/2016 Panic attack 10/09/2016 10/28/2016 Hypokalemia 10/09/2016 07/25/2017 Alkalosis 10/07/2016 10/28/2016 Chest pain 09/17/2016 09/19/2016 Chest pain 08/20/2016 08/23/2016 Overview: Says she has had continuous chest pain for past few months Exam reveals chest wall and back tenderness ? fibromyalgia EKG showed some upsloping ST depression in lateral leads (same as EKG in 06/2016) Troponin awaited Based on presentation unlikely to be pain from ischemia Plan: 1. No further w/u if troponin negative and repeat EKG stable. QT prolongation 08/20/2016 08/23/2016 Overview: Hypokalemic when she came in She has also received multiple anti-emetics with potential for QT prolongation Plan: 1. Repeat EKG 2. Telemetry monitoring Right leg swelling 08/20/2016 08/23/2016 Overview: US to r/o DVT Malnutrition of mild degree 06/16/2016 05/0 04/2016 Failure to thrive in adult 06/15/201610/28 Overview: Nausea and vomiting x2 weeks causing dehydration Most likely due to cyclophosphamide (given temporal relationship with onset of symptoms) Less likely due to increased intracranial pressure (may be pseudotumor cerebri V.S vitamin D excess V.S intracranial aneurysm possibly causing obstruction to CSF drainage system). 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 Gave 1 L bolus of LR, will continue with IVF infusion 75 ml/hr. 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 PRICING ANALYST negativeMRI:Acute right MCA infarct with multiple punctate acute infarctions on the contralateral side with multifocal anterior and posterior circulation stenoses with occlusion of a proximal sylvian branch of the Right middle cerebral artery concerning for underlying vasculopathy/vasculitis. CT chest on 12/04:scattered foci of groundglass attenuation involving both upper lobes, the right middle lobe, as well as the right lower lobe. DDx: includes ANCA vasculitis with 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 [employer]IVER involvement, APLA, Primary angiitis of 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 DRIVER,SLE LP: mild pleocytosis (lymphocyes 90),ptn slightly elevated :57 Plan: Angiography today Keep NPO,IVF 100 ml/hr If angiogram suggests vasculitis, to start high doses steroids IV . Possible brain biopsy at [facility]. Check other CTD and Vasculitis w/u Acute right MCA stroke 12/13/2015 6 Overview: Left sided Facial drooping since morning Associated with numbness and deviation of angle of mouth. Progressive weakness in small muscles of left hand. CT BRAIN WO CON: unremarkable. Neurology on consult. Plan:. Aspirin 325 mg PO. TELE Acute right MCA stroke 12/12/2015 7 Overview: Still c/o Left sided Facial drooping associated with numbness and deviation of angle of mouth.(with minimal improvement) Today she is having Rt hand numbness and tongue tip numbness MRI: Acute subsegmental right middle cerebral artery distribution infarction with additional punctate acute infarctions on the contralateral side superimposed on some chronic white matter insults including of the genu of the left internal capsule. Lipid panel: wnl other than HDL: 47 Plan:. Neurology on consult. Rheum on consult -following markers Possible angiography today Add Lipitor 40 mg daily Cardiology consult regarding BLAISE Pneumonia 12/05/2015 03/03/2016 Overview: Completed course of antibiotics today. She took azithromycin and cefipime Resolved. documented as of this encounter (statuses as of 07/12/2022) [facility]10-01[facility]2020 History of Past illness Narrative* Problem Noted Date Resolved Date Hip pain, right 01/24/2020 05/21/2020 Intractable vomiting 04/17/2019 10/05/2019 MDD (major depressive disorder) 02/18/2019 02/20/2019 Vomiting 08/30/2018 02/20/2019 Mild intermittent asthma without complication 02/20/2019 Nausea 08/25/2017 08/26/2017 Acalculous cholecystitis 08/18/2017 018 Chronic cholecystitis 08/15/2017 08/24/2017 Overview: Added automatically from request for surgery [id number] Nausea and vomiting 07/23/2017 07/25/2017 Pneumonia 02/03/2017 06/16/2017 Encephalopathy acute 10/09/2016 10/28/2016 Panic attack 10/09/2016 10/28/2016 Hypokalemia 10/09/2016 07/25/2017 Alkalosis 10/07/2016 10/28/2016 Chest pain 09/17/2016 09/19/2016 Chest pain 08/20/2016 08/23/2016 Overview: Says she has had continuous chest pain for past few months Exam reveals chest wall and back tenderness ? fibromyalgia EKG showed some upsloping ST depression in lateral leads (same as EKG in 06/2016) Troponin awaited Based on presentation unlikely to be pain from ischemia Plan: 1. No further w/u if troponin negative and repeat EKG stable. QT prolongation 08/20/2016 08/23/2016 Overview: Hypokalemic when she came in She has also received multiple anti-emetics with potential for QT prolongation Plan: 1. Repeat EKG 2. Telemetry monitoring Right leg swelling 08/20/2016 08/23/2016 Overview: US to r/o DVT Malnutrition of mild degree 06/16/2016 05/04/2016 Failure to thrive in adult 06/15/201610/28 Overview: Nausea and vomiting x2 weeks causing dehydration Most likely due to cyclophosphamide (given temporal relationship with onset of symptoms) Less likely due to increased intracranial pressure (may be pseudotumor cerebri V.S vitamin D excess V.S intracranial aneurysm possibly causing obstruction to CSF drainage system). 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 Gave 1 L bolus of LR, will continue with IVF infusion 75 ml/hr. 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 PRICING ANALYST negativeMRI:Acute right MCA infarct with multiple punctate acute infarctions on the contralateral side with multifocal anterior and posterior circulation stenoses with occlusion of a proximal sylvian branch of the Right middle cerebral artery concerning for underlying vasculopathy/vasculitis. CT chest on 12/04:scattered foci of groundglass attenuation involving both upper lobes, the right middle lobe, as well as the right lower lobe. DDx: includes ANCA vasculitis with 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 DRIVER involvement, APLA, Primary angiitis of 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 DRIVER,SLE LP: mild pleocytosis (lymphocyes 90),ptn slightly elevated :57 Plan: Angiography today Keep NPO,IVF 100 ml/hr If angiogram suggests vasculitis, to start high doses steroids IV . Possible brain biopsy at [facility]. Check other CTD and Vasculitis w/u Acute right MCA stroke 12/13/2015 6 Overview: Left sided Facial drooping since morning Associated with numbness and deviation of angle of mouth. Progressive weakness in small muscles of left hand. CT BRAIN WO CON: unremarkable. Neurology on consult. Plan:. Aspirin 325 mg PO. TELE Acute right MCA stroke 12/12/2015 7 Overview: Still c/o Left sided Facial drooping associated with numbness and deviation of angle of mouth.(with minimal improvement) Today she is having Rt hand numbness and tongue tip numbness MRI: Acute subsegmental right middle cerebral artery distribution infarction with additional punctate acute infarctions on the contralateral side superimposed on some chronic white matter insults including of the genu of the left internal capsule. Lipid panel: wnl other than HDL: 47 Plan:. Neurology on consult. Rheum on consult -following markers Possible angiography today Add Lipitor 40 mg daily Cardiology consult regarding BLAISE Pneumonia 12/05/2015 03/03/2016 Overview: Completed course of antibiotics today. She took azithromycin and cefipime Resolved. documented as of this encounter (statuses as of 08/05/2022) [facility]10-01-2020 History of Past illness Narrative* Problem Noted Date Resolved Date Hip pain, right 01/24/2020 05/21/2020 Intractable vomiting 04/17/2019 10/05/2019 MDD (major depressive disorder) 02/18/2019 02/20/2019 Vomiting 08/30/2018 02/20/2019 Mild intermittent asthma without complication 02/20/2019 Nausea 08/25/2017 08/26/2017 Acalculous cholecystitis 08/18/2017 018 Chronic cholecystitis 08/15/2017 08/24/2017 Overview: Added automatically from request for surgery [id number] Nausea and vomiting 07/23/2017 07/25/2017 Pneumonia 02/03/2017 06/16/2017 Encephalopathy acute 10/09/2016 10/28/2016 Panic attack 10/09/2016 10/28/2016 Hypokalemia 10/09/2016 07/25/2017 Alkalosis 10/07/2016 10/28/2016 Chest pain 09/17/2016 09/19/2016 Chest pain 08/20/2016 08/23/2016 Overview: Says she has had continuous chest pain for past few months Exam reveals chest wall and back tenderness ? fibromyalgia EKG showed some upsloping ST depression in lateral leads (same as EKG in 06/2016) Troponin awaited Based on presentation unlikely to be pain from ischemia Plan: 1. No further w/u if troponin negative and repeat EKG stable. QT prolongation 08/20/2016 08/23/2016 Overview: Hypokalemic when she came in She has also received multiple anti-emetics with potential for QT prolongation Plan: 1. Repeat EKG 2. Telemetry monitoring Right leg swelling 08/20/2016 08/23/2016 Overview: US to r/o DVT Malnutrition of mild degree 06/16/201604/2016 Failure to thrive in adult 06/15/201610/28 Overview: Nausea and vomiting x2 weeks causing dehydration Most likely due to cyclophosphamide (given temporal relationship with onset of symptoms) Less likely due to increased intracranial pressure (may be pseudotumor cerebri V.S vitamin D excess V.S intracranial aneurysm possibly causing obstruction to CSF drainage system). 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 Gave 1 L bolus of LR, will continue with IVF infusion 75 ml/hr. 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 PRICING ANALYST negativeMRI:Acute right MCA infarct with multiple punctate acute infarctions on the contralateral side with multifocal anterior and posterior circulation stenoses with occlusion of a proximal sylvian branch of the Right middle cerebral artery concerning for underlying vasculopathy/vasculitis. CT chest on 12/04:scattered foci of groundglass attenuation involving both upper lobes, the right middle lobe, as well as the right lower lobe. DDx: includes ANCA vasculitis with 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 DRIVER involvement, APLA, Primary angiitis of 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 DRIVER,SLE LP: mild pleocytosis (lymphocyes 90),ptn slightly elevated :57 Plan: Angiography today Keep NPO,IVF 100 ml/hr If angiogram suggests vasculitis, to start high doses steroids IV . Possible brain biopsy at [facility]. Check other CTD and Vasculitis w/u Acute right MCA stroke 12/13/2015 6 Overview: Left sided Facial drooping since morning Associated with numbness and deviation of angle of mouth. Progressive weakness in small muscles of left hand. CT BRAIN WO CON: unremarkable. Neurology on consult. Plan:. Aspirin 325 mg PO. TELE Acute right MCA stroke 12/12/2015 7 Overview: Still c/o Left sided Facial drooping associated with numbness and deviation of angle of mouth.(with minimal improvement) Today she is having Rt hand numbness and tongue tip numbness MRI: Acute subsegmental right middle cerebral artery distribution infarction with additional punctate acute infarctions on the contralateral side superimposed on some chronic white matter insults including of the genu of the left internal capsule. Lipid panel: wnl other than HDL: 47 Plan:. Neurology on consult. Rheum on consult -following markers Possible angiography today Add Lipitor 40 mg daily Cardiology consult regarding BLAISE Pneumonia 12/05/2015 03/03/2016 Overview: Completed course of antibiotics today. She took azithromycin and cefipime Resolved. documented as of this encounter (statuses as of 08/31/2022) [facility]2020 History of Past illness Narrative* Problem Noted Date Resolved Date Hip pain, right 01/24/2020 05/21/2020 Intractable vomiting 04/17/2019 10/05/2019 MDD (major depressive disorder) 02/18/2019 02/20/2019 Vomiting 08/30/2018 02/20/2019 Mild intermittent asthma without complication 02/20/2019 Nausea 08/25/2017 08/26/2017 Acalculous cholecystitis 08/18/2017 018 Chronic cholecystitis 08/15/2017 08/24/2017 Overview: Added automatically from request for surgery [id number] Nausea and vomiting 07/23/2017 07/25/2017 Pneumonia 02/03/2017 06/16/2017 Encephalopathy acute 10/09/2016 10/28/2016 Panic attack 10/09/2016 10/28/2016 Hypokalemia 10/09/2016 07/25/2017 Alkalosis 10/07/2016 10/28/2016 Chest pain 09/17/2016 09/19/2016 Chest pain 08/20/2016 08/23/2016 Overview: Says she has had continuous chest pain for past few months Exam reveals chest wall and back tenderness ? fibromyalgia EKG showed some upsloping ST depression in lateral leads (same as EKG in 06/2016) Troponin awaited Based on presentation unlikely to be pain from ischemia Plan: 1. No further w/u if troponin negative and repeat EKG stable. QT prolongation 08/20/2016 08/23/2016 Overview: Hypokalemic when she came in She has also received multiple anti-emetics with potential for QT prolongation Plan: 1. Repeat EKG 2. Telemetry monitoring Right leg swelling 08/20/2016 08/23/2016 Overview: US to r/o DVT Malnutrition of mild degree 06/16/201604/2016 Failure to thrive in adult 06/15/201610/28 Overview: Nausea and vomiting x2 weeks causing dehydration Most likely due to cyclophosphamide (given temporal relationship with onset of symptoms) Less likely due to increased intracranial pressure (may be pseudotumor cerebri V.S vitamin D excess V.S intracranial aneurysm possibly causing obstruction to CSF drainage system). 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 Gave 1 L bolus of LR, will continue with IVF infusion 75 ml/hr. 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 PRICING ANALYST negativeMRI:Acute right MCA infarct with multiple punctate acute infarctions on the contralateral side with multifocal anterior and posterior circulation stenoses with occlusion of a proximal sylvian branch of the Right middle cerebral artery concerning for underlying vasculopathy/vasculitis. CT chest on 12/04:scattered foci of groundglass attenuation involving both upper lobes, the right middle lobe, as well as the right lower lobe. DDx: includes ANCA vasculitis with 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 DRIVER involvement, APLA, Primary angiitis of 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 DRIVER,SLE LP: mild pleocytosis (lymphocyes 90),ptn slightly elevated :57 Plan: Angiography today Keep NPO,IVF 100 ml/hr If angiogram suggests vasculitis, to start high doses steroids IV . Possible brain biopsy at [facility]. Check other CTD and Vasculitis w/u Acute right MCA stroke 12/13/2015 6 Overview: Left sided Facial drooping since morning Associated with numbness and deviation of angle of mouth. Progressive weakness in small muscles of left hand. CT BRAIN WO CON: unremarkable. Neurology on consult. Plan:. Aspirin 325 mg PO. TELE Acute right MCA stroke 12/12/2015 7 Overview: Still c/o Left sided Facial drooping associated with numbness and deviation of angle of mouth.(with minimal improvement) Today she is having Rt hand numbness and tongue tip numbness MRI: Acute subsegmental right middle cerebral artery distribution infarction with additional punctate acute infarctions on the contralateral side superimposed on some chronic white matter insults including of the genu of the left internal capsule. Lipid panel: wnl other than HDL: 47 Plan:. Neurology on consult. Rheum on consult -following markers Possible angiography today Add Lipitor 40 mg daily Cardiology consult regarding BLAISE Pneumonia 12/05/2015 03/03/2016 Overview: Completed course of antibiotics today. She took azithromycin and cefipime Resolved. documented as of this encounter (statuses as of 09/03/2022) [facility] History of Past illness Narrative* Problem Noted Date Resolved Date Hip pain, right 01/24/2020 05/21/2020 Intractable vomiting 04/17/2019 10/05/2019 MDD (major depressive disorder) 02/18/2019 02/20/2019 Vomiting 08/30/2018 02/20/2019 Mild intermittent asthma without complication 02/20/2019 Nausea 08/25/2017 08/26/2017 Acalculous cholecystitis 08/18/2017 018 Chronic cholecystitis 08/15/2017 08/24/2017 Overview: Added automatically from request for surgery [id number] Nausea and vomiting 07/23/2017 07/25/2017 Pneumonia 02/03/2017 06/16/2017 Encephalopathy acute 10/09/2016 10/28/2016 Panic attack 10/09/2016 10/28/2016 Hypokalemia 10/09/2016 07/25/2017 Alkalosis 10/07/2016 10/28/2016 Chest pain 09/17/2016 09/19/2016 Chest pain 08/20/2016 08/23/2016 Overview: Says she has had continuous chest pain for past few months Exam reveals chest wall and back tenderness ? fibromyalgia EKG showed some upsloping ST depression in lateral leads (same as EKG in 06/2016) Troponin awaited Based on presentation unlikely to be pain from ischemia Plan: 1. No further w/u if troponin negative and repeat EKG stable. QT prolongation 08/20/2016 08/23/2016 Overview: Hypokalemic when she came in She has also received multiple anti-emetics with potential for QT prolongation Plan: 1. Repeat EKG 2. Telemetry monitoring Right leg swelling 08/20/2016 08/23/2016 Overview: US to r/o DVT Malnutrition of mild degree 06/16/2016 05/0 04/2016 Failure to thrive in adult 06/15/201610/28 Overview: Nausea and vomiting x2 weeks causing dehydration Most likely due to cyclophosphamide (given temporal relationship with onset of symptoms) Less likely due to increased intracranial pressure (may be pseudotumor cerebri V.S vitamin D excess V.S intracranial aneurysm possibly causing obstruction to CSF drainage system). 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 Gave 1 L bolus of LR, will continue with IVF infusion 75 ml/hr. 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 PRICING ANALYST negativeMRI:Acute right MCA infarct with multiple punctate acute infarctions on the contralateral side with multifocal anterior and posterior circulation stenoses with occlusion of a proximal sylvian branch of the Right middle cerebral artery concerning for underlying vasculopathy/vasculitis. CT chest on 12/04:scattered foci of groundglass attenuation involving both upper lobes, the right middle lobe, as well as the right lower lobe. DDx: includes ANCA vasculitis with 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 DRIVER involvement, APLA, Primary angiitis of 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 DRIVER,SLE LP: mild pleocytosis (lymphocyes 90),ptn slightly elevated :57 Plan: Angiography today Keep NPO,IVF 100 ml/hr If angiogram suggests vasculitis, to start high doses steroids IV . Possible brain biopsy at [facility]. Check other CTD and Vasculitis w/u Acute right MCA stroke 12/13/2015 6 Overview: Left sided Facial drooping since morning Associated with numbness and deviation of angle of mouth. Progressive weakness in small muscles of left hand. CT BRAIN WO CON: unremarkable. Neurology on consult. Plan:. Aspirin 325 mg PO. TELE Acute right MCA stroke 12/12/2015 7 Overview: Still c/o Left sided Facial drooping associated with numbness and deviation of angle of mouth.(with minimal improvement) Today she is having Rt hand numbness and tongue tip numbness MRI: Acute subsegmental right middle cerebral artery distribution infarction with additional punctate acute infarctions on the contralateral side superimposed on some chronic white matter insults including of the genu of the left internal capsule. Lipid panel: wnl other than HDL: 47 Plan:. Neurology on consult. Rheum on consult -following markers Possible angiography today Add Lipitor 40 mg daily Cardiology consult regarding BLAISE Pneumonia 12/05/2015 03/03/2016 Overview: Completed course of antibiotics today. She took azithromycin and cefipime Resolved. documented as of this encounter (statuses as of 10/12/2022) [facility]10-01-2020 History of Past illness Narrative* Problem Noted Date Resolved Date Hip pain, right 01/24/2020 05/21/2020 Intractable vomiting 04/17/2019 10/05/2019 MDD (major depressive disorder) 02/18/2019 02/20/2019 Vomiting 08/30/2018 02/20/2019 Mild intermittent asthma without complication 02/20/2019 Nausea 08/25/2017 08/26/2017 Acalculous cholecystitis 08/18/2017 018 Chronic cholecystitis 08/15/2017 08/24/2017 Overview: Added automatically from request for surgery [id number] Nausea and vomiting 07/23/2017 07/25/2017 Pneumonia 02/03/2017 06/16/2017 Encephalopathy acute 10/09/2016 10/28/2016 Panic attack 10/09/2016 10/28/2016 Hypokalemia 10/09/2016 07/25/2017 Alkalosis 10/07/2016 10/28/2016 Chest pain 09/17/2016 09/19/2016 Chest pain 08/20/2016 08/23/2016 Overview: Says she has had continuous chest pain for past few months Exam reveals chest wall and back tenderness ? fibromyalgia EKG showed some upsloping ST depression in lateral leads (same as EKG in 06/2016) Troponin awaited Based on presentation unlikely to be pain from ischemia Plan: 1. No further w/u if troponin negative and repeat EKG stable. QT prolongation 08/20/2016 08/23/2016 Overview: Hypokalemic when she came in She has also received multiple anti-emetics with potential for QT prolongation Plan: 1. Repeat EKG 2. Telemetry monitoring Right leg swelling 08/20/2016 08/23/2016 Overview: US to r/o DVT Malnutrition of mild degree 06/16/201604/2016 Failure to thrive in adult 06/15/201610/28 Overview: Nausea and vomiting x2 weeks causing dehydration Most likely due to cyclophosphamide (given temporal relationship with onset of symptoms) Less likely due to increased intracranial pressure (may be pseudotumor cerebri V.S vitamin D excess V.S intracranial aneurysm possibly causing obstruction to CSF drainage system). 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 Gave 1 L bolus of LR, will continue with IVF infusion 75 ml/hr. 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 PRICING ANALYST negativeMRI:Acute right MCA infarct with multiple punctate acute infarctions on the contralateral side with multifocal anterior and posterior circulation stenoses with occlusion of a proximal sylvian branch of the Right middle cerebral artery concerning for underlying vasculopathy/vasculitis. CT chest on 12/04:scattered foci of groundglass attenuation involving both upper lobes, the right middle lobe, as well as the right lower lobe. DDx: includes ANCA vasculitis with 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 DRIVER involvement, APLA, Primary angiitis of 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 DRIVER,SLE LP: mild pleocytosis (lymphocyes 90),ptn slightly elevated :57 Plan: Angiography today Keep NPO,IVF 100 ml/hr If angiogram suggests vasculitis, to start high doses steroids IV . Possible brain biopsy at [facility]. Check other CTD and Vasculitis w/u Acute right MCA stroke 12/13/2015 6 Overview: Left sided Facial drooping since morning Associated with numbness and deviation of angle of mouth. Progressive weakness in small muscles of left hand. CT BRAIN WO CON: unremarkable. Neurology on consult. Plan:. Aspirin 325 mg PO. TELE Acute right MCA stroke 12/12/2015 7 Overview: Still c/o Left sided Facial drooping associated with numbness and deviation of angle of mouth.(with minimal improvement) Today she is having Rt hand numbness and tongue tip numbness MRI: Acute subsegmental right middle cerebral artery distribution infarction with additional punctate acute infarctions on the contralateral side superimposed on some chronic white matter insults including of the genu of the left internal capsule. Lipid panel: wnl other than HDL: 47 Plan:. Neurology on consult. Rheum on consult -following markers Possible angiography today Add Lipitor 40 mg daily Cardiology consult regarding BLAISE Pneumonia 12/05/2015 03/03/2016 Overview: Completed course of antibiotics today. She took azithromycin and cefipime Resolved. documented as of this encounter (statuses as of 10/20/2022) [facility]10-01-2020 History of Past illness Narrative* Problem Noted Date Resolved Date Hip pain, right 01/24/2020 05/21/2020 Intractable vomiting 04/17/2019 10/05/2019 MDD (major depressive disorder) 02/18/2019 02/20/2019 Vomiting 08/30/2018 02/20/2019 Mild intermittent asthma without complication 02/20/2019 Nausea 08/25/2017 08/26/2017 Acalculous cholecystitis 08/18/2017 018 Chronic cholecystitis 08/15/2017 08/24/2017 Overview: Added automatically from request for surgery [id number] Nausea and vomiting 07/23/2017 07/25/2017 Pneumonia 02/03/2017 06/16/2017 Encephalopathy acute 10/09/2016 10/28/2016 Panic attack 10/09/2016 10/28/2016 Hypokalemia 10/09/2016 07/25/2017 Alkalosis 10/07/2016 10/28/2016 Chest pain 09/17/2016 09/19/2016 Chest pain 08/20/2016 08/23/2016 Overview: Says she has had continuous chest pain for past few months Exam reveals chest wall and back tenderness ? fibromyalgia EKG showed some upsloping ST depression in lateral leads (same as EKG in 06/2016) Troponin awaited Based on presentation unlikely to be pain from ischemia Plan: 1. No further w/u if troponin negative and repeat EKG stable. QT prolongation 08/20/2016 08/23/2016 Overview: Hypokalemic when she came in She has also received multiple anti-emetics with potential for QT prolongation Plan: 1. Repeat EKG 2. Telemetry monitoring Right leg swelling 08/20/2016 08/23/2016 Overview: US to r/o DVT Malnutrition of mild degree 06/16/2016 05/0 04/2016 Failure to thrive in adult 06/15/201610/28 Overview: Nausea and vomiting x2 weeks causing dehydration Most likely due to cyclophosphamide (given temporal relationship with onset of symptoms) Less likely due to increased intracranial pressure (may be pseudotumor cerebri V.S vitamin D excess V.S intracranial aneurysm possibly causing obstruction to CSF drainage system). 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 Gave 1 L bolus of LR, will continue with IVF infusion 75 ml/hr. 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 PRICING ANALYST negativeMRI:Acute right MCA infarct with multiple punctate acute infarctions on the contralateral side with multifocal anterior and posterior circulation stenoses with occlusion of a proximal sylvian branch of the Right middle cerebral artery concerning for underlying vasculopathy/vasculitis. CT chest on 12/04:scattered foci of groundglass attenuation involving both upper lobes, the right middle lobe, as well as the right lower lobe. DDx: includes ANCA vasculitis with 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 DRIVER involvement, APLA, Primary angiitis of 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 DRIVER,SLE LP: mild pleocytosis (lymphocyes 90),ptn slightly elevated :57 Plan: Angiography today Keep NPO,IVF 100 ml/hr If angiogram suggests vasculitis, to start high doses steroids IV . Possible brain biopsy at [facility]. Check other CTD and Vasculitis w/u Acute right MCA stroke 12/13/2015 6 Overview: Left sided Facial drooping since morning Associated with numbness and deviation of angle of mouth. Progressive weakness in small muscles of left hand. CT BRAIN WO CON: unremarkable. Neurology on consult. Plan:. Aspirin 325 mg PO. TELE Acute right MCA stroke 12/12/2015 7 Overview: Still c/o Left sided Facial drooping associated with numbness and deviation of angle of mouth.(with minimal improvement) Today she is having Rt hand numbness and tongue tip numbness MRI: Acute subsegmental right middle cerebral artery distribution infarction with additional punctate acute infarctions on the contralateral side superimposed on some chronic white matter insults including of the genu of the left internal capsule. Lipid panel: wnl other than HDL: 47 Plan:. Neurology on consult. Rheum on consult -following markers Possible angiography today Add Lipitor 40 mg daily Cardiology consult regarding BLAISE Pneumonia 12/05/2015 03/03/2016 Overview: Completed course of antibiotics today. She took azithromycin and cefipime Resolved. documented as of this encounter (statuses as of 10/25/2022) [facility]2020 History of Past illness Narrative* Problem Noted Date Resolved Date Hip pain, right 01/24/2020 05/21/2020 Intractable vomiting 04/17/2019 10/05/2019 MDD (major depressive disorder) 02/18/2019 02/20/2019 Vomiting 08/30/2018 02/20/2019 Mild intermittent asthma without complication 02/20/2019 Nausea 08/25/2017 08/26/2017 Acalculous cholecystitis 08/18/2017 018 Chronic cholecystitis 08/15/2017 08/24/2017 Overview: Added automatically from request for surgery [id number] Nausea and vomiting 07/23/2017 07/25/2017 Pneumonia 02/03/2017 06/16/2017 Encephalopathy acute 10/09/2016 10/28/2016 Panic attack 10/09/2016 10/28/2016 Hypokalemia 10/09/2016 07/25/2017 Alkalosis 10/07/2016 10/28/2016 Chest pain 09/17/2016 09/19/2016 Chest pain 08/20/2016 08/23/2016 Overview: Says she has had continuous chest pain for past few months Exam reveals chest wall and back tenderness ? fibromyalgia EKG showed some upsloping ST depression in lateral leads (same as EKG in 06/2016) Troponin awaited Based on presentation unlikely to be pain from ischemia Plan: 1. No further w/u if troponin negative and repeat EKG stable. QT prolongation 08/20/2016 08/23/2016 Overview: Hypokalemic when she came in She has also received multiple anti-emetics with potential for QT prolongation Plan: 1. Repeat EKG 2. Telemetry monitoring Right leg swelling 08/20/2016 08/23/2016 Overview: US to r/o DVT Malnutrition of mild degree 06/16/2016 05/04/2016 Failure to thrive in adult 06/15/201610/28 Overview: Nausea and vomiting x2 weeks causing dehydration Most likely due to cyclophosphamide (given temporal relationship with onset of symptoms) Less likely due to increased intracranial pressure (may be pseudotumor cerebri V.S vitamin D excess V.S intracranial aneurysm possibly causing obstruction to CSF drainage system). 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 Gave 1 L bolus of LR, will continue with IVF infusion 75 ml/hr. 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 PRICING ANALYST negativeMRI:Acute right MCA infarct with multiple punctate acute infarctions on the contralateral side with multifocal anterior and posterior circulation stenoses with occlusion of a proximal sylvian branch of the Right middle cerebral artery concerning for underlying vasculopathy/vasculitis. CT chest on 12/04:scattered foci of groundglass attenuation involving both upper lobes, the right middle lobe, as well as the right lower lobe. DDx: includes ANCA vasculitis with 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 DRIVER involvement, APLA, Primary angiitis of 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 DRIVER,SLE LP: mild pleocytosis (lymphocyes 90),ptn slightly elevated :57 Plan: Angiography today Keep NPO,IVF 100 ml/hr If angiogram suggests vasculitis, to start high doses steroids IV . Possible brain biopsy at [facility]. Check other CTD and Vasculitis w/u Acute right MCA stroke 12/13/2015 6 Overview: Left sided Facial drooping since morning Associated with numbness and deviation of angle of mouth. Progressive weakness in small muscles of left hand. CT BRAIN WO CON: unremarkable. Neurology on consult. Plan:. Aspirin 325 mg PO. TELE Acute right MCA stroke 12/12/2015 7 Overview: Still c/o Left sided Facial drooping associated with numbness and deviation of angle of mouth.(with minimal improvement) Today she is having Rt hand numbness and tongue tip numbness MRI: Acute subsegmental right middle cerebral artery distribution infarction with additional punctate acute infarctions on the contralateral side superimposed on some chronic white matter insults including of the genu of the left internal capsule. Lipid panel: wnl other than HDL: 47 Plan:. Neurology on consult. Rheum on consult -following markers Possible angiography today Add Lipitor 40 mg daily Cardiology consult regarding BLAISE Pneumonia 12/05/2015 03/03/2016 Overview: Completed course of antibiotics today. She took azithromycin and cefipime Resolved. documented as of this encounter (statuses as of 10/25/2022) [facility] History of Past illness Narrative* Problem Noted Date Diagnosed Date Resolved Date Hip pain, right 01/24/2020 05/21/2020 Intractable vomiting 04/17/2019 020 MDD (major depressive disorder) 02/18/2019 02/20/2019 Vomiting 08/30/2018 02/20/2019 Mild intermittent asthma without complication 02/05/20 18 02/20/2019 Nausea 08/25/2017 08/26/2017 Acalculous cholecystitis 08/18/201705/2017 Chronic cholecystitis 08/15/20172017 Overview: Added automatically from request for surgery [id number] Nausea and vomiting 07/23/2017 07/26/19 18 Pneumonia 02/03/2017 06/16/2017 Encephalopathy acute 10/09/2016 017 Panic attack 10/09/2016 10/28/2016 Hypokalemia 10/09/2016 07/25/2017 Alkalosis 10/07/2016 10/28/2016 Chest pain 09/17/2016 09/19/2016 Chest pain 08/20/2016 08/23/2016 Overview: Says she has had continuous chest pain for past few months Exam reveals chest wall and back tenderness ? fibromyalgia EKG showed some upsloping ST depression in lateral leads (same as EKG in 06/2016) Troponin awaited Based on presentation unlikely to be pain from ischemia Plan: 1. No further w/u if troponin negative and repeat EKG stable. QT prolongation 08/20/2016 08/23/2016 Overview: Hypokalemic when she came in She has also received multiple anti-emetics with potential for QT prolongation Plan: 1. Repeat EKG 2. Telemetry monitoring Right leg swelling 08/20/2016 Overview: US to r/o DVT Malnutrition of mild degree 06/16/2016 08/23/2016 Failure to thrive in adult 06/15/2016 0 10/28/2016 Overview: Nausea and vomiting x2 weeks causing dehydration Most likely due to cyclophosphamide (given temporal relationship with onset of symptoms) Less likely due to increased intracranial pressure (may be pseudotumor cerebri V.S vitamin D excess V.S intracranial aneurysm possibly causing obstruction to CSF drainage system). 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 Dehydration 06/15/2016 10/28/2016 Overview: Due to persistent nausea and vomiting. Gave 1 L bolus of LR, will continue with IVF infusion 75 ml/hr. Encounter for monitoring cyc lophosphamide therapy 03/29/2016 02/17/2017 Vasculitis 03/25/2016 10/28/2016 Overview: C/w prednisone 6 mg daily (on a taper per rheumatology note) Next dose of cyclophosphamide in September 23 per rheumatology note Celiac artery stenosis 01/08/201603/03 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 PRICING ANALYST negativeMRI:Acute right MCA infarct with multiple punctate acute infarctions on the contralateral side with multifocal anterior and posterior circulation stenoses with occlusion of a proximal sylvian branch of the Right middle cerebral artery concerning for underlying vasculopathy/vasculitis. CT chest on 12/04:scattered foci of groundglass attenuation involving both upper lobes, the right middle lobe, as well as the right lower lobe. DDx: includes ANCA vasculitis with 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 DRIVER involvement, APLA, Primary angiitis of 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 DRIVER,SLE LP: mild pleocytosis (lymphocyes 90),ptn slightly elevated :57 Plan: Angiography today Keep NPO,IVF 100 ml/hr If angiogram suggests vasculitis, to start high doses steroids IV . Possible brain biopsy at [facility]. Check other CTD and Vasculitis w/u Acute right MCA stroke 12/13/201512/12 Overview: Left sided Facial drooping since morning Associated with numbness and deviation of angle of mouth. Progressive weakness in small muscles of left hand. CT BRAIN WO CON: unremarkable. Neurology on consult. Plan:. Aspirin 325 mg PO. TELE Acute right MCA stroke 12/12/201502/17 Overview: Still c/o Left sided Facial drooping associated with numbness and deviation of angle of mouth.(with minimal improvement) Today she is having Rt hand numbness and tongue tip numbness MRI: Acute subsegmental right middle cerebral artery distribution infarction with additional punctate acute infarctions on the contralateral side superimposed on some chronic white matter insults including of the genu of the left internal capsule. Lipid panel: wnl other than HDL: 47 Plan:. Neurology on consult. Rheum on consult -following markers Possible angiography today Add Lipitor 40 mg daily Cardiology consult regarding BLAISE Pneumonia 12/05/2015 03/03/2016 Overview: Completed course of antibiotics today. She took azithromycin and cefipime Resolved. documented as of this encounter (statuses as of 11/05/2022) [facility] History of Past illness Narrative* Problem Noted Date Diagnosed Date Resolved Date Hip pain, right 01/24/2020 05/21/2020 Intractable vomiting 04/17/2019 020 MDD (major depressive disorder) 02/18/2019 02/20/2019 Vomiting 08/30/2018 02/20/2019 Mild intermittent asthma without complication 02/05/20 18 02/20/2019 Nausea 08/25/2017 08/26/2017 Acalculous cholecystitis 08/18/201705/2017 Chronic cholecystitis 08/15/20172017 Overview: Added automatically from request for surgery [id number] Nausea and vomiting 07/23/2017 07/26/19 18 Pneumonia 02/03/2017 06/16/2017 Encephalopathy acute 10/09/2016 017 Panic attack 10/09/2016 10/28/2016 Hypokalemia 10/09/2016 07/25/2017 Alkalosis 10/07/2016 10/28/2016 Chest pain 09/17/2016 09/19/2016 Chest pain 08/20/2016 08/23/2016 Overview: Says she has had continuous chest pain for past few months Exam reveals chest wall and back tenderness ? fibromyalgia EKG showed some upsloping ST depression in lateral leads (same as EKG in 06/2016) Troponin awaited Based on presentation unlikely to be pain from ischemia Plan: 1. No further w/u if troponin negative and repeat EKG stable. QT prolongation 08/20/2016 08/23/2016 Overview: Hypokalemic when she came in She has also received multiple anti-emetics with potential for QT prolongation Plan: 1. Repeat EKG 2. Telemetry monitoring Right leg swelling 08/20/2016 7 Overview: US to r/o DVT Malnutrition of mild degree 06/16/2016 08/23/2016 Failure to thrive in adult 06/15/2016 0 10/28/2016 Overview: Nausea and vomiting x2 weeks causing dehydration Most likely due to cyclophosphamide (given temporal relationship with onset of symptoms) Less likely due to increased intracranial pressure (may be pseudotumor cerebri V.S vitamin D excess V.S intracranial aneurysm possibly causing obstruction to CSF drainage system). 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 Dehydration 06/15/2016 10/28/2016 Overview: Due to persistent nausea and vomiting. Gave 1 L bolus of LR, will continue with IVF infusion 75 ml/hr. Encounter for monitoring cyc lophosphamide therapy 03/29/2016 02/17/2017 Vasculitis 03/25/2016 10/28/2016 Overview: C/w prednisone 6 mg daily (on a taper per rheumatology note) Next dose of cyclophosphamide in September 23 per rheumatology note Celiac artery stenosis 01/08/201603/03 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 PRICING ANALYST negativeMRI:Acute right MCA infarct with multiple punctate acute infarctions on the contralateral side with multifocal anterior and posterior circulation stenoses with occlusion of a proximal sylvian branch of the Right middle cerebral artery concerning for underlying vasculopathy/vasculitis. CT chest on 12/04:scattered foci of groundglass attenuation involving both upper lobes, the right middle lobe, as well as the right lower lobe. DDx: includes ANCA vasculitis with 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 DRIVER involvement, APLA, Primary angiitis of 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 DRIVER,SLE LP: mild pleocytosis (lymphocyes 90),ptn slightly elevated :57 Plan: Angiography today Keep NPO,IVF 100 ml/hr If angiogram suggests vasculitis, to start high doses steroids IV . Possible brain biopsy at [facility]. Check other CTD and Vasculitis w/u Acute right MCA stroke 12/13/201512/12 Overview: Left sided Facial drooping since morning Associated with numbness and deviation of angle of mouth. Progressive weakness in small muscles of left hand. CT BRAIN WO CON: unremarkable. Neurology on consult. Plan:. Aspirin 325 mg PO. TELE Acute right MCA stroke 12/12/201502/17 Overview: Still c/o Left sided Facial drooping associated with numbness and deviation of angle of mouth.(with minimal improvement) Today she is having Rt hand numbness and tongue tip numbness MRI: Acute subsegmental right middle cerebral artery distribution infarction with additional punctate acute infarctions on the contralateral side superimposed on some chronic white matter insults including of the genu of the left internal capsule. Lipid panel: wnl other than HDL: 47 Plan:. Neurology on consult. Rheum on consult -following markers Possible angiography today Add Lipitor 40 mg daily Cardiology consult regarding BLAISE Pneumonia 12/05/2015 03/03/2016 Overview: Completed course of antibiotics today. She took azithromycin and cefipime Resolved. documented as of this encounter (statuses as of 01/08/2023) [facility]10-29-2019 History of Past illness Narrative* Problem Noted Date Resolved Date Borderline personality disorder ([facility]) 201801/27/2021 documented as of this encounter (statuses as of 05/31/2022) [facility] Work Phone: [phone] History of Past illness Narrative* Problem Noted Date Resolved Date Borderline personality disorder ([facility]) 201801/27/2021 documented as of this encounter (statuses as of 06/14/2022) [facility] Work Phone: [phone] History of Past illness Narrative* Problem Noted Date Diagnosed Date Resolved Date Borderline personality disorder (HCC-CMS) 02/20/2019 01/27/2021 documented as of this encounter (statuses as of 07/09/2022) [facility] Work Phone: [phone] History of Past illness Narrative* Problem Noted Date Diagnosed Date Resolved Date Borderline personality disorder (HCC-CMS) 02/20/2019 01/27/2021 documented as of this encounter (statuses as of 07/12/2022) [facility] Work Phone: [phone] History of Past illness Narrative* Problem Noted Date Diagnosed Date Resolved Date Borderline personality disorder (HCC-CMS) 02/20/2019 01/27/2021 documented as of this encounter (statuses as of 08/06/2022) [facility] Work Phone: [phone] History of Past illness Narrative* Problem Noted Date Diagnosed Date Resolved Date Borderline personality disorder (HCC-CMS) 02/20/2019 01/27/2021 documented as of this encounter (statuses as of 09/03/2022) [facility] Work Phone: [phone] History of Past illness Narrative* Problem Noted Date Diagnosed Date Resolved Date Borderline personality disorder (HCC-CMS) 02/20/2019 01/27/2021 documented as of this encounter (statuses as of 10/01/2022) [facility] Work Phone: [phone] History of Past illness Narrative* Problem Noted Date Diagnosed Date Resolved Date Borderline personality disorder (HCC-CMS) 02/20/2019 01/27/2021 documented as of this encounter (statuses as of 10/22/2022) [facility] Work Phone: [phone] History of Past illness Narrative* Problem Noted Date Diagnosed Date Resolved Date Borderline personality disorder (HCC-CMS) 02/20/2019 01/27/2021 documented as of this encounter (statuses as of 11/04/2022) [facility] Work Phone: [phone] History of Past illness Narrative* Problem Noted Date Diagnosed Date Resolved Date Borderline personality disorder (HCC-CMS) 02/20/2019 01/27/2021 documented as of this encounter (statuses as of 11/18/2022) [facility] Work Phone: [phone] History of Past illness Narrative* Problem Noted Date Diagnosed Date Resolved Date Borderline personality disorder (HCC-CMS) 02/20/2019 01/27/2021 documented as of this encounter (statuses as of 2022) [facility] Work Phone: [phone] History of Past illness Narrative* Problem Noted Date Diagnosed Date Resolved Date Borderline personality disorder (HCC-CMS) 02/20/2019 01/27/2021 documented as of this encounter (statuses as of 02/11/2023) [facility] Work Phone: [phone] History of Past illness Narrative* Problem Noted Date Diagnosed Date Resolved Date Borderline personality disorder (HCC-CMS) 02/20/2019 01/27/2021 documented as of this encounter (statuses as of 03/01/2023) [facility] Work Phone: [phone] History of Past illness Narrative* Problem Noted Date Diagnosed Date Resolved Date Borderline personality disorder (HCC-CMS) 02/20/2019 01/27/2021 documented as of this encounter (statuses as of 03/04/2023) [facility] Work Phone: [phone] History of Past illness Narrative* Problem Noted Date Diagnosed Date Resolved Date Borderline personality disorder (HCC-CMS) 02/20/2019 01/27/2021 documented as of this encounter (statuses as of 03/25/2023) [facility] Work Phone: [phone] History of Past illness Narrative* Problem Noted Date Diagnosed Date Resolved Date Borderline personality disorder (HCC-CMS) 02/20/2019 01/27/2021 documented as of this encounter (statuses as of 04/01/2023) [facility] Work Phone: [phone] History of Past illness Narrative* Problem Noted Date Diagnosed Date Resolved Date Borderline personality disorder (HCC-CMS) 02/20/2019 01/27/2021 documented as of this encounter (statuses as of 04/24/2023) [facility] Work Phone: [phone] History of Past illness Narrative* Problem Noted Date Diagnosed Date Resolved Date Borderline personality disorder (HCC-CMS) 02/20/2019 01/27/2021 documented as of this encounter (statuses as of 05/03/2023) [facility] Work Phone: [phone] History of Past illness Narrative* Problem Noted Date Diagnosed Date Resolved Date Borderline personality disorder (HCC-CMS) 02/20/2019 01/27/2021 documented as of this encounter (statuses as of 05/09/2023) [facility] Work Phone: [phone] History of Past illness Narrative* Problem Noted Date Diagnosed Date Resolved Date Borderline personality disorder (HCC-CMS) 02/20/2019 01/27/2021 documented as of this encounter (statuses as of 05/16/2023) [facility] Work Phone: [phone] History of Past illness Narrative* Problem Noted Date Diagnosed Date Resolved Date Borderline personality disorder (HCC-CMS) 02/20/2019 01/27/2021 documented as of this encounter (statuses as of 05/16/2023) [facility] Work Phone: [phone] History of Past illness Narrative* Problem Noted Date Diagnosed Date Resolved Date Borderline personality disorder (HCC-CMS) 02/20/2019 01/27/2021 documented as of this encounter (statuses as of 05/23/2023) [facility] Work Phone: [phone] History of Past illness Narrative* Problem Noted Date Diagnosed Date Resolved Date Borderline personality disorder (HCC-CMS) 02/20/2019 01/27/2021 documented as of this encounter (statuses as of 06/14/2023) [facility] Work Phone: [phone] History of Past illness Narrative* Problem Noted Date Diagnosed Date Resolved Date Borderline personality disorder (HCC-CMS) 02/20/2019 01/27/2021 documented as of this encounter (statuses as of 07/01/2023) [facility] Work Phone: [phone] History of Past illness Narrative* Problem Noted Date Diagnosed Date Resolved Date Borderline personality disorder (HCC-CMS) 02/20/2019 01/27/2021 documented as of this encounter (statuses as of 07/11/2023) [facility] Work Phone: [phone] History of Past illness Narrative* Problem Noted Date Diagnosed Date Resolved Date Borderline personality disorder (HCC-CMS) 02/20/2019 01/27/2021 documented as of this encounter (statuses as of 07/11/2023) [facility] Work Phone: [phone] History of Past illness Narrative* Problem Noted Date Diagnosed Date Resolved Date Borderline personality disorder (HCC-CMS) 02/20/2019 01/27/2021 documented as of this encounter (statuses as of 07/15/2023) [facility] Work Phone: [phone] History of Past illness Narrative* Problem Noted Date Diagnosed Date Resolved Date Borderline personality disorder (HCC-CMS) 02/20/2019 01/27/2021 documented as of this encounter (statuses as of 07/29/2023) [facility] Work Phone: [phone] History of Past illness Narrative* Problem Noted Date Diagnosed Date Resolved Date Borderline personality disorder (HCC-CMS) 02/20/2019 01/27/2021 documented as of this encounter (statuses as of 07/29/2023) [facility] Work Phone: [phone] History of Past illness Narrative* Problem Noted Date Diagnosed Date Resolved Date Borderline personality disorder (HCC-CMS) 02/20/2019 01/27/2021 documented as of this encounter (statuses as of 09/07/2023) [facility] Work Phone: [phone] History of Past illness Narrative* Problem Noted Date Diagnosed Date Resolved Date Borderline personality disorder (HCC-CMS) 02/20/2019 01/27/2021 documented as of this encounter (statuses as of 09/20/2023) [facility] Work Phone: [phone] History of Past illness Narrative* Problem Noted Date Diagnosed Date Resolved Date Borderline personality disorder (HCC-CMS) 02/20/2019 01/27/2021 documented as of this encounter (statuses as of 10/05/2023) [facility] Work Phone: [phone] History of Past illness Narrative* Problem Noted Date Diagnosed Date Resolved Date Borderline personality disorder (HCC-CMS) 02/20/2019 01/27/2021 documented as of this encounter (statuses as of 10/14/2023) [facility] Work Phone: [phone] History of Past illness Narrative* Problem Noted Date Diagnosed Date Resolved Date Borderline personality disorder (HCC-CMS) 02/20/2019 01/27/2021 documented as of this encounter (statuses as of 11/01/2023) [facility] Work Phone: [phone] History of Past illness Narrative* Problem Noted Date Diagnosed Date Resolved Date Borderline personality disorder (HCC-CMS) 02/20/2019 01/27/2021 documented as of this encounter (statuses as of 11/18/2023) [facility] Work Phone: [phone] History of Past illness Narrative* Problem Noted Date Diagnosed Date Resolved Date Borderline personality disorder (HCC-CMS) 02/20/2019 01/27/2021 documented as of this encounter (statuses as of 12/16/2023) [facility] Work Phone: [phone] History of Past illness Narrative* Problem Noted Date Diagnosed Date Resolved Date Borderline personality disorder (HCC-CMS) 02/20/2019 01/27/2021 documented as of this encounter (statuses as of 12/23/2023) [facility] Work Phone: [phone] History of Past illness Narrative* Problem Noted Date Diagnosed Date Resolved Date Borderline personality disorder (HCC-CMS) 02/20/2019 01/27/2021 documented as of this encounter (statuses as of 01/20/2024) [facility] Work Phone: [phone] History of Past illness Narrative* Problem Noted Date Diagnosed Date Resolved Date Borderline personality disorder (HCC-CMS) 02/20/2019 01/27/2021 documented as of this encounter (statuses as of 02/06/2024) [facility] Work Phone: [phone] History of Past illness Narrative* Problem Noted Date Diagnosed Date Resolved Date Borderline personality disorder (HCC-CMS) 02/20/2019 01/27/2021 documented as of this encounter (statuses as of 02/10/2024) [facility] Work Phone: [phone] History of Past illness Narrative* Problem Noted Date Diagnosed Date Resolved Date Borderline personality disorder (HCC-CMS) 02/20/2019 01/27/2021 documented as of this encounter (statuses as of 02/17/2024) [facility] Work Phone: [phone] History of Past illness Narrative* Problem Noted Date Diagnosed Date Resolved Date Borderline personality disorder (HCC-CMS) 02/20/2019 01/27/2021 documented as of this encounter (statuses as of 02/24/2024) [facility] Work Phone: [phone] History of Past illness Narrative* Problem Noted Date Diagnosed Date Resolved Date Borderline personality disorder (HCC-CMS) 02/20/2019 01/27/2021 documented as of this encounter (statuses as of 03/02/2024) [facility] Work Phone: [phone] History of Past illness Narrative* Problem Noted Date Diagnosed Date Resolved Date Borderline personality disorder (HCC-CMS) 02/20/2019 01/27/2021 documented as of this encounter (statuses as of 03/12/2024) [facility] Work Phone: [phone] History of Past illness Narrative* Problem Noted Date Diagnosed Date Resolved Date Borderline personality disorder (HCC-CMS) 02/20/2019 01/27/2021 documented as of this encounter (statuses as of 04/08/2023) [facility] Work Phone: [phone] History of Past illness Narrative* Problem Noted Date Diagnosed Date Resolved Date Borderline personality disorder (HCC-CMS) 02/20/2019 01/27/2021 documented as of this encounter (statuses as of 01/06/2024) [facility] Work Phone: [phone] History of Past illness Narrative* Problem Noted Date Diagnosed Date Resolved Date Borderline personality disorder (HCC-CMS) 02/20/2019 01/27/2021 documented as of this encounter (statuses as of 04/27/2024) [facility] Work Phone: [phone] History of Past illness Narrative* Problem Noted Date Diagnosed Date Resolved Date Borderline personality disorder (HCC-CMS) 02/20/2019 01/27/2021 documented as of this encounter (statuses as of 05/11/2024) [facility] Work Phone: [phone] History of Past illness Narrative* Problem Noted Date Diagnosed Date Resolved Date Borderline personality disorder (HCC-CMS) 02/20/2019 01/27/2021 documented as of this encounter (statuses as of 05/25/2024) [facility] Work Phone: [phone] History of Past illness Narrative* Problem Noted Date Diagnosed Date Resolved Date Borderline personality disorder (HCC-CMS) 02/20/2019 01/27/2021 documented as of this encounter (statuses as of 06/11/2024) [facility] Work Phone: [phone] History of Past illness Narrative* Problem Noted Date Diagnosed Date Resolved Date Borderline personality disorder (HCC-CMS) 02/20/2019 01/27/2021 documented as of this encounter (statuses as of 06/13/2024) [facility] Work Phone: [phone] History of Past illness Narrative* Problem Noted Date Diagnosed Date Resolved Date Borderline personality disorder (HCC-CMS) 02/20/2019 01/27/2021 documented as of this encounter (statuses as of 06/22/2024) [facility] Work Phone: [phone] History of Past illness Narrative* Problem Noted Date Diagnosed Date Resolved Date Borderline personality disorder (HCC-CMS) 02/20/2019 01/27/2021 documented as of this encounter (statuses as of 07/05/2024) [facility] Work Phone: [phone] History of Past illness Narrative* Problem Noted Date Diagnosed Date Resolved Date Borderline personality disorder ([facility]) 02/20/2019 01/27/2021 documented as of this encounter (statuses as of 07/18/2024) [facility] Work Phone: [phone] History of Past illness Narrative* Problem Noted Date Diagnosed Date Resolved Date Borderline personality disorder (HCC-CMS) 02/20/2019 01/27/2021 documented as of this encounter (statuses as of 08/17/2024) [facility] Work Phone: [phone] History of Past illness Narrative* Problem Noted Date Diagnosed Date Resolved Date Borderline personality disorder ([facility]) 02/20/2019 01/27/2021 documented as of this encounter (statuses as of 08/31/2024) [facility] Work Phone: [phone] History of Past illness Narrative* Problem Noted Date Diagnosed Date Resolved Date Borderline personality disorder ([facility]) 02/20/2019 01/27/2021 documented as of this encounter (statuses as of 10/09/2024) [facility] Work Phone: [phone] History of Past illness Narrative* Problem Noted Date Diagnosed Date Resolved Date Borderline personality disor stewart ([facility]) 02/20/2019 01/27/2021 documented as of this encounter (statuses as of 10/19/2024) [facility] Work Phone: [phone] History of Past illness Narrative* Problem Noted Date Diagnosed Date Resolved Date Borderline personality disor stewart ([facility]) 02/20/2019 01/27/2021 documented as of this encounter (statuses as of 11/16/2024) [facility] Work Phone: [phone] History of Past illness Narrative* Problem Noted Date Diagnosed Date Resolved Date Borderline personality disor stewart ([facility]) 02/20/2019 01/27/2021 documented as of this encounter (statuses as of 11/30/2024) [facility] Work Phone: Evaluation note* Diagnosis Vasculitis, 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) Arteritis, unspecified [facility] Diagnosis Essential hypertension Unspecified essential hypertension documented in this encounter [facility] note* Diagnosis Fatigue, unspecified type- Primary Hyperlipidemia, unspecified hyperlipidemia type Vitamin D deficiency Unspecified vitamin D deficiency Encounter for screening for malignant neoplasm of breast, unspecified screening modality documented in this encounter [facility] note* Diagnosis Essential hypertension- Primary Unspecified essential hypertension Dietary counseling Dietary surveillance and counseling Mild intermittent asthma without complication Unspecified asthma Right hip pain Pain in joint, pelvic region and thigh documented in this encounter [facility] note* Diagnosis Essential hypertension Unspecified essential hypertension documented in this encounter [facility] note* Diagnosis Essential hypertension Unspecified essential hypertension documented in this encounter [facility] note* Diagnosis Encounter for screening for malignant neoplasm of breast, unspecified screening modality documented in this encounter [facility] note* Diagnosis Essential hypertension- Primary Unspecified essential hypertension Cannabis dependence (HCC) Cannabis dependence, unspecified Unspecified mood (affective) disorder (HCC) Dietary counseling Dietary surveillance and counseling Cerebrovascular accident (CVA) due to stenosis of left middle cerebral artery (HCC) Mild intermittent asthma without complication Unspecified asthma [facility] Diagnosis Essential hypertension Unspecified essential hypertension documented in this encounter [facility] note* Diagnosis Bipolar II disorder (HCC-CMS) Other bipolar disorders Generalized anxiety disorder Panic disorder Panic disorder without agoraphobia Posttraumatic stress disorder documented in this encounter [facility] Work Phone: Evaluation note* Diagnosis Bipolar II disorder (HCC-CMS)- Primary Other bipolar disorders Panic disorder Panic disorder without agoraphobia Posttraumatic stress disorder documented in this encounter [facility] Work Phone: Evaluation note* Diagnosis Essential hypertension Unspecified essential hypertension documented in this encounter [facility] note* Diagnosis Essential hypertension- Primary Unspecified essential hypertension Cannabis dependence (HCC) Cannabis dependence, unspecified Dietary counseling Dietary surveillance and counseling Mild intermittent asthma without complication Unspecified asthma documented in this encounter [facility] note* Diagnosis Fatigue, unspecified type Vitamin D deficiency Unspecified vitamin D deficiency Diabetes mellitus type 1, controlled, without complications (HCC) Type I (juvenile type) diabetes mellitus without mention of complication, not stated as uncontrolled [facility] Diagnosis Bipolar II disorder (HCC-CMS)- Primary Other bipolar disorders Panic disorder Panic disorder without agoraphobia Posttraumatic stress disorder documented in this encounter [facility] Work Phone: Evaluation note* Diagnosis Bipolar II disorder (HCC-CMS) Other bipolar disorders Generalized anxiety disorder Panic disorder Panic disorder without agoraphobia Posttraumatic stress disorder documented in this encounter [facility] Work Phone: Evaluation note* Diagnosis Essential hypertension Unspecified essential hypertension [facility] Diagnosis Bipolar II disorder (HCC-CMS)- Primary Other bipolar disorders Panic disorder Panic disorder without agoraphobia documented in this encounter [facility] Work Phone: Evaluation note* Diagnosis Bipolar II disorder (HCC-CMS)- Primary Other bipolar disorders Posttraumatic stress disorder Panic disorder Panic disorder without agoraphobia documented in this encounter [facility] Work Phone: Evaluation note* Diagnosis Essential hypertension Unspecified essential hypertension [facility] Diagnosis Posttraumatic stress disorder- Primary Panic disorder Panic disorder without agoraphobia Bipolar II disorder (HCC-CMS) Other bipolar disorders documented in this encounter [facility] Work Phone: Evaluation note* Diagnosis 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, 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) Arteritis, unspecified [facility] Diagnosis 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, 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) Arteritis, unspecified [facility] Diagnosis Bipolar II disorder (HCC-CMS) Other bipolar disorders Generalized anxiety disorder Panic disorder Panic disorder without agoraphobia Posttraumatic stress disorder documented in this encounter [facility] Work Phone: Evaluation note* Diagnosis Vasculitis, 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)- Primary Arteritis, unspecified 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) History of CVA (cerebrovascular accident) Transient ischemic attack (TIA), and cerebral infarction without residual deficits On mycophenolate mofetil therapy [facility] Diagnosis Bipolar II disorder (HCC-CMS)- Primary Other bipolar disorders Panic disorder Panic disorder without agoraphobia Posttraumatic stress disorder documented in this encounter [facility] Work Phone: [phone] note* Diagnosis 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) [facility] Diagnosis Bipolar II disorder (HCC-CMS)- Primary Other bipolar disorders Panic disorder Panic disorder without agoraphobia Posttraumatic stress disorder documented in this encounter [facility] Work Phone: [phone] note* Diagnosis Bipolar II disorder (HCC-CMS)- Primary Other bipolar disorders Panic disorder Panic disorder without agoraphobia Posttraumatic stress disorder documented in this encounter [facility] Work Phone: [phone] note* Diagnosis Bipolar II disorder (HCC-CMS)- Primary Other bipolar disorders Generalized anxiety disorder Panic disorder Panic disorder without agoraphobia Posttraumatic stress disorder documented in this encounter [facility] Work Phone: [phone] note* Diagnosis Panic disorder- Primary Panic disorder without agoraphobia Posttraumatic stress disorder Bipolar II disorder (HCC-CMS) Other bipolar disorders documented in this encounter [facility] Work Phone: [phone] note* Diagnosis Bipolar I disorder, current or most recent episode depressed, in partial remission (HCC-CMS)- Primary Bipolar I disorder, most recent episode (or current) depressed, in partial or unspecified remission Generalized anxiety disorder documented in this encounter [facility] Work Phone: [phone] note* Diagnosis Posttraumatic stress disorder- Primary documented in this encounter [facility] Work Phone: [phone] note* Diagnosis Bipolar II disorder (HCC-CMS)- Primary Other bipolar disorders Posttraumatic stress disorder Panic disorder Panic disorder without agoraphobia documented in this encounter [facility] Work Phone: [phone] note* Diagnosis Posttraumatic stress disorder- Primary documented in this encounter [facility] Work Phone: [phone] note* Diagnosis Anxiety- Primary Anxiety state, unspecified Bipolar II disorder (HCC-CMS) Other bipolar disorders Panic disorder Panic disorder without agoraphobia documented in this encounter [facility] Work Phone: [phone] note* Diagnosis Bereavement reaction- Primary Bereavement, uncomplicated Anxiety Anxiety state, unspecified documented in this encounter [facility] Work Phone: Evaluation note* Diagnosis Bereavement reaction- Primary Bereavement, uncomplicated Anxiety Anxiety state, unspecified documented in this encounter [facility] Work Phone: Evaluation note* Diagnosis Essential hypertension- Primary Unspecified essential hypertension Dietary counseling Dietary surveillance and counseling Mild intermittent asthma without complication Unspecified asthma BORA (acute kidney injury) (HCC) Acute kidney failure, unspecified Bipolar 1 disorder (HCC) Bipolar I disorder, most recent episode (or current) unspecified Mixed hyperlipidemia [facility] Diagnosis Anxiety- Primary Anxiety state, unspecified Bipolar II disorder ([facility]CMS) Other bipolar disorders Panic disorder Panic disorder without agoraphobia documented in this encounter [facility] Work Phone: Evaluation note* Diagnosis Dizziness- Primary Dizziness and giddiness Essential hypertension Unspecified essential hypertension Dietary counseling Dietary surveillance and counseling Mild intermittent asthma without complication Unspecified asthma BORA (acute kidney injury) (HCC) Acute kidney failure, unspecified Mixed hyperlipidemia [facility] Diagnosis Dizziness Dizziness and giddiness [facility] Diagnosis Dizziness- Primary Dizziness and giddiness Essential hypertension Unspecified essential hypertension Dietary counseling Dietary surveillance and counseling Hypokalemia Hypopotassemia Encounter for screening mammogram for malignant neoplasm of breast Other screening mammogram Need for vaccination Need for prophylactic vaccination and inoculation against unspecified single disease Nausea and vomiting, unspecified vomiting type [facility] Diagnosis Bereavement reaction- Primary Bereavement, uncomplicated Anxiety Anxiety state, unspecified documented in this encounter [facility] Work Phone: Evaluation note* Diagnosis Essential hypertension- Primary Unspecified essential hypertension Borderline personality disorder ([facility]) Borderline personality disorder Dietary counseling Dietary surveillance and counseling Encounter for screening mammogram for malignant neoplasm of breast Other screening mammogram [facility] Diagnosis Essential hypertension Unspecified essential hypertension [facility] Diagnosis Bipolar II disorder ([facility]-CMS)- Primary Other bipolar disorders Posttraumatic stress disorder Panic disorder Panic disorder without agoraphobia Unspecified mood (affective) disorder (HCC-CMS) Bereavement reaction Bereavement, uncomplicated Anxiety Anxiety state, unspecified documented in this encounter [facility] Work Phone: Evaluation note* Diagnosis Episode of recurrent major depressive disorder, unspecified depression episode severity ([facility])- Primary documented in this encounter [facility] note* Diagnosis Vasculitis, 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 DRIVER ([facility]) Arteritis, unspecified documented in this encounter [facility] note* Diagnosis Bipolar II disorder ([facility]-CMS)- Primary Other bipolar disorders Posttraumatic stress disorder Panic disorder Panic disorder without agoraphobia Unspecified mood (affective) disorder (HCC-CMS) Bereavement reaction Bereavement, uncomplicated Anxiety Anxiety state, unspecified documented in this encounter [facility] Work Phone: Evaluation note* Diagnosis Bipolar II disorder ([facility]-CMS)- Primary Other bipolar disorders Posttraumatic stress disorder Panic disorder Panic disorder without agoraphobia Unspecified mood (affective) disorder ([facility]-CMS) Bereavement reaction Bereavement, uncomplicated Anxiety Anxiety state, unspecified documented in this encounter [facility] Work Phone: Evaluation note* Diagnosis Bipolar II disorder ([facility]-CMS)- Primary Other bipolar disorders Posttraumatic stress disorder Panic disorder Panic disorder without agoraphobia Unspecified mood (affective) disorder ([facility]-CMS) Bereavement reaction Bereavement, uncomplicated Anxiety Anxiety state, unspecified documented in this encounter [facility] Work Phone: Evaluation note* Diagnosis Encounter for screening mammogram for malignant neoplasm of breast- Primary Other screening mammogram documented in this encounter [facility] note* Diagnosis Encounter for screening mammogram for malignant neoplasm of breast- Primary Other screening mammogram Cannabis dependence (HCC) Cannabis dependence, unspecified Essential hypertension Unspecified essential hypertension Borderline personality disorder (HCC) Borderline personality disorder BORA (acute kidney injury) (HCC) Acute kidney failure, unspecified Mixed hyperlipidemia documented in this encounter [facility] note* Diagnosis Bipolar II disorder ([facility]-CMS)- Primary Other bipolar disorders Generalized anxiety disorder Panic disorder Panic disorder without agoraphobia Posttraumatic stress disorder Grief Adjustment disorder with depressed mood documented in this encounter [facility] Work Phone: Evaluation note* Diagnosis Nausea and vomiting, unspecified vomiting type- Primary Abdominal pain, right upper quadrant documented in this encounter [facility] note* Diagnosis Bipolar II disorder (HCC-CMS)- Primary Other bipolar disorders Posttraumatic stress disorder Panic disorder Panic disorder without agoraphobia Unspecified mood (affective) disorder (HCC-CMS) Bereavement reaction Bereavement, uncomplicated Anxiety Anxiety state, unspecified documented in this encounter [facility] Work Phone: Evaluation note* Diagnosis Problems with swallowing and mastication- Primary documented in this encounter [facility] note* Diagnosis Bipolar II disorder (HCC-CMS)- Primary Other bipolar disorders Posttraumatic stress disorder Panic disorder Panic disorder without agoraphobia Unspecified mood (affective) disorder (HCC-CMS) Bereavement reaction Bereavement, uncomplicated Anxiety Anxiety state, unspecified documented in this encounter [facility] Work Phone: Evaluation note* Diagnosis Bipolar II disorder (HCC-CMS)- Primary Other bipolar disorders Posttraumatic stress disorder Panic disorder Panic disorder without agoraphobia Unspecified mood (affective) disorder (HCC-CMS) Bereavement reaction Bereavement, uncomplicated Anxiety Anxiety state, unspecified documented in this encounter [facility] Work Phone: Evaluation note* Diagnosis Nausea and vomiting, unspecified vomiting type Abdominal pain, right upper quadrant documented in this encounter [facility] note* Diagnosis 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, 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) Arteritis, unspecified Essential hypertension Unspecified essential hypertension documented in this encounter [facility] note* Diagnosis Bipolar II disorder (HCC-CMS)- Primary Other bipolar disorders Posttraumatic stress disorder Panic disorder Panic disorder without agoraphobia Unspecified mood (affective) disorder (HCC-CMS) Bereavement reaction Bereavement, uncomplicated Anxiety Anxiety state, unspecified documented in this encounter [facility] Work Phone: Evaluation note* Diagnosis Bipolar II disorder (HCC-CMS)- Primary Other bipolar disorders Posttraumatic stress disorder Panic disorder Panic disorder without agoraphobia Unspecified mood (affective) disorder (HCC-CMS) Bereavement reaction Bereavement, uncomplicated Anxiety Anxiety state, unspecified documented in this encounter [facility] Work Phone: Evaluation note* Diagnosis Sequela of lacunar infarction- Primary Syncope, unspecified syncope type Renal insufficiency Unspecified disorder of kidney and ureter documented in this encounter [facility] Work Phone: Evaluation note* Diagnosis Panic disorder- Primary Panic disorder without agoraphobia Posttraumatic stress disorder Bipolar II disorder (HCC-CMS) Other bipolar disorders documented in this encounter [facility] Work Phone: Evaluation note* Diagnosis Bipolar II disorder (HCC-CMS)- Primary Other bipolar disorders Posttraumatic stress disorder Panic disorder Panic disorder without agoraphobia Unspecified mood (affective) disorder (HCC-CMS) Bereavement reaction Bereavement, uncomplicated Anxiety Anxiety state, unspecified documented in this encounter [facility] [employer] Work Phone: Evaluation note* Diagnosis Bipolar II disorder (HCC-CMS)- Primary Other bipolar disorders Posttraumatic stress disorder Panic disorder Panic disorder without agoraphobia Unspecified mood (affective) disorder (HCC-CMS) Bereavement reaction Bereavement, uncomplicated Anxiety Anxiety state, unspecified documented in this encounter [facility] [employer] Work Phone: Evaluation note* Diagnosis Bereavement reaction- Primary Bereavement, uncomplicated Anxiety Anxiety state, unspecified documented in this encounter [facility] [employer] Work Phone: Evaluation note* Diagnosis Encounter for screening mammogram for malignant neoplasm of breast- Primary Other screening mammogram [facility]* Diagnosis Essential hypertension Unspecified essential hypertension documented in this encounter [facility] note* Diagnosis Cannabis dependence (HCC)- Primary Cannabis dependence, unspecified Nausea and vomiting, unspecified vomiting type Screening for depression Severe depressed bipolar I disorder with psychotic features (HCC) Bipolar I disorder, most recent episode (or current) depressed, severe, specified as with psychotic behavior Dietary counseling Dietary surveillance and counseling Chronic obstructive pulmonary disease, unspecified COPD type (HCC) Primary hypertension Unspecified essential hypertension Encounter for screening mammogram for malignant neoplasm of breast Other screening mammogram [facility]* Diagnosis 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, 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) Arteritis, unspecified Essential hypertension Unspecified essential hypertension documented in this encounter [facility] noteNo assessment information availableWKet[facility] Work Phone: Evaluation note* Diagnosis Encounter for screening mammogram for malignant neoplasm of breast- Primary Other screening mammogram [facility] Diagnosis Primary hypertension- Primary Unspecified essential hypertension Dietary counseling Dietary surveillance and counseling Encounter for screening mammogram for malignant neoplasm of breast Other screening mammogram [facility]* Diagnosis Bipolar II disorder (HCC-CMS)- Primary Other bipolar disorders Panic disorder Panic disorder without agoraphobia documented in this encounter [facility] Work Phone: Evaluation note* Diagnosis Bipolar II disorder (HCC-CMS)- Primary Other bipolar disorders Panic disorder Panic disorder without agoraphobia documented in this encounter [facility] Work Phone: Evaluation note* Diagnosis Bipolar II disorder (CMS & [facility]-HCC)- Primary Other bipolar disorders Panic disorder Panic disorder without agoraphobia documented in this encounter [facility] Work Phone: Evaluation note* Diagnosis Bipolar II disorder ([facility])- Primary Other bipolar disorders Panic disorder Panic disorder without agoraphobia documented in this encounter [facility] Work Phone: Evaluation note* Diagnosis Bipolar II disorder ([facility] & [facility]-HCC)- Primary Other bipolar disorders Posttraumatic stress disorder Panic disorder Panic disorder without agoraphobia Unspecified mood (affective) disorder ([facility] V24) Bereavement reaction Bereavement, uncomplicated documented in this encounter [facility] Work Phone: Reason for referral (narrative)* Diagnostic Procedure Only (Routine) - Pending Review Specialty Diagnoses / Procedures Referred By Mallorie t Referred To Contact [facility] Diagnoses Encounter for screening for malignant neoplasm of breast, unspecified screening modality Procedures MARTITA SCREENING SCREENING MAMMOGRAPHY BI 2-[place] [id number] [address] [address] [facility] [place] [address] Referral ID Status Reason Start Date Expiration Date Visits Requested Visits Authorized [id number] Pending Review Auto-Generat ed Referral 11/10/2021 12/10/2022 1 1 [facility] for referral (narrative)* Diagnostic Procedure Only (Routine) - Closed Specialty Diagnoses / Procedures Referred By Mallorie t Referred To Contact [facility] Diagnoses Encounter for screening for malignant neoplasm of breast, unspecified screening modality Procedures MARTITA SCREENING SCREENING MAMMOGRAPHY BI 2-[place] [address] [address] [facility] [address] [place] [address] [facility] [address] [place] [address] Referral ID Status Reason Start Date Expiration Date V isits Requested Visits Authorized [id number] Closed Auto-Generate d Referral 11/10/2021 12/10/2022 1 1 [facility] for referral (narrative)* Diagnostic Procedure Only (Routine) - Pending Review Specialty Diagnoses / Procedures Referred By Mallorie chan Referred To Contact [facility] Diagnoses Encounter for screening mammogram for malignant neoplasm of breast Procedures MARTITA SCREENING SCREENING MAMMOGRAPHY BI 2-[place] [address] [address] [facility] [address] [place] [address] Referral ID Status Reason Start Date Expiration Date Visits Requested Visits Authorized [id number] Pending Review Auto-Generat ed Referral 10/17/2023 11/15/2024 1 1 [facility] for referral (narrative)* Outpatient Procedure (Routine) - Pending Review Specialty Diagnoses / Procedures Referred By Mallorie t Referred To Contact [facility] Diagnoses Nausea and vomiting, unspecified vomiting type Abdominal pain, right upper quadrant Procedures EGD DIAGNOSTIC ESOPHAGOGASTRODUODENOSC OPY TRANSORAL DIAGNOSTIC Bev Ríos, DONNIE.ADMINISTRATIVE RESOURCES ASSOCIATE [address] [facility] [address] [place] [address] [facility] [address] [place] [address] Referral ID Status Reason Start Date Expiration Date Visits Requested Visits Authorized [id number] Pending Review Auto-Generat ed Referral 11/04/2023 11/03/2024 1 1 * Outpatient Procedure (Routine) - Pending Review Specialty Diagnoses / Procedures Referred By Contac t Referred To Contact [facility] Diagnoses Nausea and vomiting, unspecified vomiting type Abdominal pain, right upper quadrant Procedures COLONOSCOPY DIAGNOSTIC COLONOSCOPY FLX DX W/COLLJ SPEC WHEN PFBev Ortiz APRN.CNP [address] [facility] [address] [place] [address] [facility] [address] [place] [address] Referral ID Status Reason Start Date Expiration Date Visits Requested Visits Authorized [id number] Pending Review Auto-Generat ed Referral 11/04/2023 11/03/2024 1 1 [facility] for referral (narrative)* Diagnostic Procedure Only (Routine) - New Request Specialty Diagnoses / Procedures Referred By Contac t Referred To Contact [facility]AG[facility] Diagnoses Nausea and vomiting, unspecified vomiting type Procedures XR ESOPHAGRAM RADIOLOGIC EXAM ESOPHAGUS SINGLE CONTRAST STUDY Kirill Causey I, MD [address] [facility] [address] [place] [address] Xr Imaging [facility] Referral ID Status Reason Start Date Expiration Date Visits Requested Visits Authorized [id number] New Request Auto-Generat ed Referral 12/02/2023 12/31/2024 1 1 * Diagnostic Procedure Only (Routine) - New Request Specialty Diagnoses / Procedures Referred By Contac t Referred To Contact [facility] Diagnoses Nausea and vomiting, unspecified vomiting type Procedures NM GASTRIC EMPTYING SOLID GASTRIC EMPTYING STUDY Kirill Causey I, MD [address] [facility] [address] [place] [address] [facility] [address] [place] [address] Referral ID Status Reason Start Date Expiration Date Visits Requested Visits Authorized [id number] New Request Auto-Generat ed Referral 12/02/2023 12/31/2024 1 1 * Outpatient Procedure (Routine) - Ref Not Required Specialty Diagnoses / Procedures Referred By Contac t Referred To Contact ENDOSCOPY Diagnoses Nausea and vomiting, unspecified vomiting type Abdominal pain, right upper quadrant Procedures EGD DIAGNOSTIC ESOPHAGOGASTRODUODENOSCOPY TRANSORAL DIAGNOSTIC Bev Ríos APRN.ADMINISTRATIVE RESOURCES ASSOCIATE [address] [facility] [address] [place] [address] [facility] [address] [facility] [address] [place] [address] Referral ID Status Reason Start Date Expiration Date Visits Requested Visits Authorized [id number] Ref Not Required Auto-Generat ed Referral 11/04/2023 11/03/2024 1 1 * Outpatient Procedure (Routine) - Ref Not Required Specialty Diagnoses / Procedures Referred By Contac t Referred To Contact ENDOSCOPY Diagnoses Nausea and vomiting, unspecified vomiting type Abdominal pain, right upper quadrant Procedures COLONOSCOPY DIAGNOSTIC COLONOSCOPY FLX DX W/COLLJ SPEC WHEN PFRMD Bev Ríos APRN.ADMINISTRATIVE RESOURCES ASSOCIATE [address] [facility] [address] [place] [address] [facility] [address] [facility] [address] [place] [address] Referral ID Status Reason Start Date Expiration Date Visits Requested Visits Authorized [id number] Ref Not Required Auto-Generat ed Referral 11/04/2023 11/03/2024 1 1 [facility]No reason for referral information availableWK[facility] Work Phone: Reason for visit Narrative* Diagnostic Procedure Only (Routine) - Closed Specialty Diagnoses / Procedures Referred By Contkorin t Referred To Contact [facility] Diagnoses Encounter for screening for malignant neoplasm of breast, unspecified screening modality Procedures MARTITA SCREENING SCREENING MAMMOGRAPHY BI 2-VIEW [place] [address] [address] [place] [address] [facility] [address] [place] [address] Referral ID Status Reason Start Date Expiration Date V isits Requested Visits Authorized [id number] Closed Auto-Generate d Referral 11/10/2021 12/10/2022 1 1 [facility] for visit Narrative* Outpatient Procedure (Routine) - Ref Not Required Specialty Diagnoses / Procedures Referred By Mallorie chan Referred To Contact ENDOSCOPY Diagnoses Nausea and vomiting, unspecified vomiting type Abdominal pain, right upper quadrant Procedures EGD DIAGNOSTIC ESOPHAGOGASTRODUODENOSCOPY TRANSORAL DIAGNOSTIC Bev Ríos APRN.ADMINISTRATIVE RESOURCES ASSOCIATE [address] [place] [address] [facility] [address] [place] [address] Referral ID Status Reason Start Date Expiration Date Visits Requested Visits Authorized [id number] Ref Not Required Auto-Generat ed Referral 11/04/2023 11/03/2024 1 1 [facility] Summary Purpose Family History No Family History Records FoundNo Family History Records FoundNo Family History Records FoundNo Family History Records FoundNo Family History Records FoundNo Family History Records FoundNo Family History Records Found Advance Directives No Advanced Directives Records FoundDocuments on File Type Date 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 Advance Directive(s) 02/02/2011 3:04 PM Date Activated Date Inactivated Comments 04/08/2023 4:52 AM 04/09/2023 1:50 PM Question Answer Comments Full Code Order Discussed With: Patient Date Activated Date Inactivated Comments 11/21/2017 10:54 AM 03/07/2018 9:49 PM has living will--full code Latest Code Status on File Code Status Date Activated Date Inactivated Comments Full Code 11/21/2017 10:54 AM 03/07/2018 9:49 PM has living will--full code Documents on File Type Date 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 Advance Directive(s) Advance Directive(s) 07/22/2021 12:43 PM Advance Directive(s) 07/20/2021 9:35 AM Advance Directive(s) 01/13/2021 2:17 PM Advance Directive(s) 12/10/2019 10:13 PM Advance Directive(s) 11/24/2019 6:14 PM Advance Directive(s) 07/08/2019 12:52 PM Advance Directive(s) 07/07/2019 1:50 AM Advance Directive(s) 04/17/2019 9:45 AM Advance Directive(s) 02/18/2019 5:59 PM Advance Directive(s) 02/18/2019 8:36 PM Advance Directive(s) 10/31/2018 6:19 PM Advance Directive(s) 09/22/2018 6:59 AM Advance Directive(s) 08/30/2018 11:24 AM Advance Directive(s) 08/22/2018 9:40 AM Advance Directive(s) 05/26/2018 10:40 PM Advance Directive(s) 05/02/2018 10:08 PM Advance Directive(s) 03/07/2018 11:10 PM Advance Directive(s) 11/10/2017 3:04 PM Advance Directive(s) 11/08/2017 3:41 AM Advance Directive(s) 08/24/2017 11:16 AM Advance Directive(s) 08/24/2017 9:27 PM Advance Directive(s) 08/22/2017 6:58 AM Advance Directive(s) 11/04/2016 8:43 AM Advance Directive(s) 09/17/2016 1:12 PM Advance Directive(s) 08/20/2016 2:31 PM Advance Directive(s) 06/14/2016 6:06 PM Advance Directive(s) 05/27/2016 11:09 AM Advance Directive(s) 03/25/2016 8:48 AM Advance Directive(s) 03/17/2016 12:14 PM Advance Directive(s) 12/19/2015 6:32 PM Advance Directive(s) 02/02/2011 3:04 PM Documents on File Type Date 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 Advance Directive(s) Advance Directive(s) 07/22/2021 12:43 PM Advance Directive(s) 07/20/2021 9:35 AM Advance Directive(s) 01/13/2021 2:17 PM Advance Directive(s) 12/10/2019 10:13 PM Advance Directive(s) 11/24/2019 6:14 PM Advance Directive(s) 07/08/2019 12:52 PM Advance Directive(s) 07/07/2019 1:50 AM Advance Directive(s) 04/17/2019 9:45 AM Advance Directive(s) 02/18/2019 5:59 PM Advance Directive(s) 02/18/2019 8:36 PM Advance Directive(s) 10/31/2018 6:19 PM Advance Directive(s) 09/22/2018 6:59 AM Advance Directive(s) 08/30/2018 11:24 AM Advance Directive(s) 08/22/2018 9:40 AM Advance Directive(s) 05/26/2018 10:40 PM Advance Directive(s) 05/02/2018 10:08 PM Advance Directive(s) 03/07/2018 11:10 PM Advance Directive(s) 11/10/2017 3:04 PM Advance Directive(s) 11/08/2017 3:41 AM Advance Directive(s) 08/24/2017 11:16 AM Advance Directive(s) 08/24/2017 9:27 PM Advance Directive(s) 08/22/2017 6:58 AM Advance Directive(s) 11/04/2016 8:43 AM Advance Directive(s) 09/17/2016 1:12 PM Advance Directive(s) 08/20/2016 2:31 PM Advance Directive(s) 06/14/2016 6:06 PM Advance Directive(s) 05/27/2016 11:09 AM Advance Directive(s) 03/25/2016 8:48 AM Advance Directive(s) 03/17/2016 12:14 PM Advance Directive(s) 12/19/2015 6:32 PM Advance Directive(s) 02/02/2011 3:04 PM Latest Code Status on File Code Status Date Activated Date Inactivated Comments Full Code 11/21/2017 10:54 AM 03/07/2018 9:49 PM has living will--full code Documents on File Type Date 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 Advance Directive(s) 02/02/2011 3:04 PM Latest Code Status on File Code Status Date Activated Date Inactivated Comments Full Code 11/21/2017 10:54 AM 03/07/2018 9:49 PM has living will--full code Latest Code Status on File Code Status Date Activated Date Inactivated Comments Full Code 04/08/2023 4:52 AM 04/09/2023 1:50 PM Question Answer Comments Full Code Order Discussed With: Patient Code Status History Code Status Date Activated Date Inactivated Comments Full Code 11/21/2017 10:54 AM 03/07/2018 9:49 PM has living will--full code Date Activated Date Inactivated Comments 04/08/2023 4:52 AM 04/09/2023 1:50 PM Question Answer Comments Full Code Order Discussed With: Patient Date Activated Date Inactivated Comments 11/21/2017 10:54 AM 03/07/2018 9:49 PM has living will--full code Documents on File Type Date 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 Authorization to Release Information 06/10/2021 12:00 AM ODD (MAILED 06/22/21) Authorization to Release Information 12/11/2019 12:00 AM OOD Authorization to Release Information 07/17/2019 12:00 AM OOD Authorization to Release Information 01/05/2019 3:00 AM RELEASES [employer] Date Activated Date Inactivated Comments 02/16/2024 4:21 PM 02/17/2024 11:53 PM Date Activated Date Inactivated Comments 04/08/2023 4:52 AM 04/09/2023 1:50 PM Question Answer Comments Full Code Order Discussed With: Patient Date Activated Date Inactivated Comments 11/21/2017 10:54 AM 03/07/2018 9:49 PM has living will--full code Date Activated Date Inactivated Comments 02/16/2024 4:21 PM 02/17/2024 11:53 PM Date Activated Date Inactivated Comments 04/08/2023 4:52 AM 04/09/2023 1:50 PM Question Answer Comments Full Code Order Discussed With: Patient Date Activated Date Inactivated Comments 11/21/2017 10:54 AM 03/07/2018 9:49 PM has living will--full code Advance Directive Response Recorded Date/ Time Living Will No July 03, 2024 12:39am Power of Mascara Molder No July 03 12:39am Hospital Course Note HNO ID: [id number] Author: Vincent Zhao Service: Psychiatry Author Type: Physician Type: Discharge Summary Filed: 02/21/2019 11:51 AM Note Text: DISCHARGE SUMMARY BEHAVIORAL HEALTH PATIENT NAME: Nida Baldwin ADMISSION DATE: 02/18/2019 DISCHARGE DATE: 02/20/2019 ATTENDING PHYSICIAN: Emily Zhao Code Status: Prior Highest Readmission Risk Score: 17 The 30 day readmissions risk score is derived from an internally validated risk model which evaluates patient level characteristics, utilization history, medication orders and lab results up until the day of discharge. Patients with a score of 40 or above are considered highest risk for readmission. Specific patient level drivers will be listed at the bottom of the summary. REASON FOR HOSPITALIZATION: Risk of physical harm to self DISCHARGE DIAGNOSIS: Mood DO unspecifiied ( Bipolar DO vs MDD vs post stroke CVA) Borderline PD Marijuana Use Nicotine Dependence OPERATIONS DURING HOSPITALIZATION: None PROCEDURES DURING (more content not included)... Health Concerns Active Problems Noted Date Diagnosed Date Anxiety 11/17/2022 Depression 11/17/2022 Assessment Noted Time PHQ-9 Depression Total Score: 22 024 10:18 AM PST Problem Noted Date Diagnosed Date Anxiety 11/17/2022 Depression 11/17/2022 Assessment Noted Time PHQ-9 Depression Total Score: 7 11/13/19 23 1:47 PM PDT Assessment Noted Time PHQ-9 Depression Total Score: 7 05/03/19 23 11:27 AM PST Problem Noted Date Diagnosed Date Anxiety 11/17/2022 Depression 11/17/2022 Problem Noted Date Diagnosed Date Anxiety 11/17/2022 Depression 11/17/2022 Problem Noted Date Diagnosed Date Anxiety 11/17/2022 Depression 11/17/2022 Assessment Noted Time PHQ-9 Depression Total Score: 7 11/13/19 23 1:47 PM PDT Problem Noted Date Diagnosed Date Anxiety 11/17/2022 Depression 11/17/2022 Problem Noted Date Diagnosed Date Anxiety 11/17/2022 Depression 11/17/2022 Problem Noted Date Diagnosed Date Anxiety 11/17/2022 Depression 11/17/2022 Problem Noted Date Diagnosed Date Anxiety 11/17/2022 Depression 11/17/2022 Problem Noted Date Diagnosed Date Anxiety 11/17/2022 Depression 11/17/2022 Problem Noted Date Diagnosed Date Anxiety 11/17/2022 Depression 11/17/2022 Active Problems Noted Date Diagnosed Date Anxiety 11/17/2022 Depression 11/17/2022 Active Problems Noted Date Diagnosed Date Anxiety 11/17/2022 Depression 11/17/2022 Active Problems Noted Date Diagnosed Date Anxiety 11/17/2022 Depression 11/17/2022 Active Problems Noted Date Diagnosed Date Anxiety 11/17/2022 Depression 11/17/2022 Active Problems Noted Date Diagnosed Date Anxiety 11/17/2022 Depression 11/17/2022 Assessment Noted Time PHQ-9 Depression Total Score: 22 024 10:18 AM PST Active Problems Noted Date Diagnosed Date Anxiety 11/17/2022 Depression 11/17/2022 Active Problems Noted Date Diagnosed Date Anxiety 11/17/2022 Depression 11/17/2022 Active Problems Noted Date Diagnosed Date Anxiety 11/17/2022 Depression 11/17/2022 Active Problems Noted Date Diagnosed Date Anxiety 11/17/2022 Depression 11/17/2022 Assessment Noted Time PHQ-9 Depression Total Score: 8 11/18/19 24 10:10 AM PDT Active Problems Noted Date Diagnosed Date Anxiety 11/17/2022 Depression 11/17/2022 Assessment Noted Time PHQ-9 Depression Total Score: 12 024 11:14 AM PDT Active Problems Noted Date Diagnosed Date Anxiety 11/17/2022 Depression 11/17/2022 Reason for Referral Specialty Diagnoses / Procedures Referred By Mallorie chan Referred To Contact Diagnoses 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, 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) Katie Zhong MD [address] [facility] [place] [address] Referral ID Status Reason Start Date Expiration Date Visits Re quested Visits Authorized [id number] Closed 1 1 Specialty Diagnoses / Procedures Referred By Mallorie chan Referred To Contact MR IMAGING Diagnoses 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) Procedures MRA BRAIN WO/W IVCON MRA; HEAD W & WO CONTRAST Katie Zhong MD [address] [place] [address] Mr Imaging Referral ID Status Reason Start Date Expiration Date Visits Requested Visits Authorized [id number] Pending Review Auto-Generat ed Referral 11/03/2022 2023 1 1 Specialty Diagnoses / Procedures Referred By Mallorie chan Referred To Contact MR IMAGING Diagnoses 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) Procedures MRI BRAIN WO/W IVCON MRI BRAIN BRAIN STEM W/O W/CONTRAST MATERIAL Katie Zhong MD [address] [place] [address] Mr Imaging Referral ID Status Reason Start Date Expiration Date Visits Requested Visits Authorized [id number] Pending Review Auto-Generat ed Referral 11/03/2022 2023 1 1 Specialty Diagnoses / Procedures Referred By Contac t Referred To Contact MR IMAGING Diagnoses 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) Procedures MRA BRAIN WO/W IVCON MRA; HEAD W & WO CONTRAST Katie Zhong MD [address] [place] [place] [id number] [facility] [place] [address] Referral ID Status Reason Start Date Expiration Date V isits Requested Visits Authorized [id number] Closed Auto-Generate d Referral 12/21/2022 02/19/2023 1 1 Specialty Diagnoses / Procedures Referred By Contac t Referred To Contact MR IMAGING Diagnoses 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) Procedures MRI BRAIN WO/W IVCON MRI BRAIN BRAIN STEM W/O W/CONTRAST MATERIAL Katie Zhong MD [address] [id number] [facility] [place] [address] Referral ID Status Reason Start Date Expiration Date V isits Requested Visits Authorized [id number] Closed Auto-Generate d Referral 11/05/2022 2023 1 1 Specialty Diagnoses / Procedures Referred By Contac t Referred To Contact Mental Health Diagnoses Bipolar I disorder, current or most recent episode depressed, in partial remission (HCC-CMS) Generalized anxiety disorder Ramses Allen, J[address] [place] [address] [facility] [address] [place] [address] Referral ID Status Reason Start Date Expiration Date Visits Requested Visits Authorized [id number] New Request Continuity of Care 04/01/2023 09/28/2023 1 1 Comments Needs help filling out paperwork for section 8, as well as section 8 rent to own housing program, [facility] as well as finding low income housing within the community. 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 Client has a dog. Specialty Diagnoses / Procedures Referred By Mallorie chan Referred To Contact MR IMAGING Diagnoses Dizziness Procedures MRI BRAIN WO IVCON MRI BRAIN BRAIN STEM W/[place] [address] [place] [phone] [place] [address] Referral ID Status Reason Start Date Expiration Date V isits Requested Visits Authorized [id number] Closed Auto-Generate d Referral 07/13/2023 04/24/2024 1 1 Specialty Diagnoses / Procedures Referred By Mallorie chan Referred To Contact Diagnoses Bipolar II disorder (HCC-CMS) Posttraumatic stress disorder Panic disorder Unspecified mood (affective) disorder (HCC-CMS) Bereavement reaction Anxiety Ramses Allen [facility] [place] [address] Referral ID Status Reason Start Date Expiration Date Visits Requested Visits Authorized [id number] New Request Urgent/Emerge nt Situation 09/16/2023 09/15/2024 1 1 Comments Client is experiencing S/I with a plan. Specialty Diagnoses / Procedures Referred By Mallorie chan Referred To Contact Diagnoses Bipolar II disorder ([facility]) Posttraumatic stress disorder Panic disorder Unspecified mood (affective) disorder (HCC-CMS) Bereavement reaction Anxiety Ramses Allen [facility] [address] [place] [address] [address] [place] [address] Referral ID Status Reason Start Date Expiration Date Visits Requested Visits Authorized [id number] New Request Continuity of Care 11/18/2023 05/16/2024 1 1 Comments Reason for Referral: Smoking Cessation Specialty Diagnoses / Procedures Referred By Mallorie chan Referred To Contact Neurology Jayne Kerns MD [address] [facility] [place] [address] [facility] [address] [place] [address] Referral ID Status Reason Start Date Expiration Date Visits Re quested Visits Authorized Scheduling Instructions Please call the Neurology Clinic at to schedule an appointment if one was not made for you today. Question Answer Patient to be evaluated for: Stroke, TIA - remote infarcts noted on trauma CT Chief Complaint and Reason for Visit Chief Complaint Admit Date N/V/D July 03, 2024 12: 04am Additional Source Comments INFORMATION SOURCE (unrecogn ized section and content) DATE CREATED AUTHOR 03/02/2019 [facility] DATE CREATED AUTHOR AUTHOR'S ORGANIZ ATION 07/30/2021 [facility] DATE CREATED AUTHOR AUTHOR'S ORGANIZ ATION 01/09/2023 [facility] DATE CREATED AUTHOR AUTHOR'S ORGANIZ ATION 07/23/2023 [facility] DATE CREATED AUTHOR AUTHOR'S ORGANIZ ATION 09/21/2024 [facility] DATE CREATED AUTHOR AUTHOR'S ORGANIZ ATION 10/21/2024 [facility] DATE CREATED AUTHOR AUTHOR'S ORGANIZ ATION 12/04/2024 [facility] Source Comments (unrecognize d section and content) In the event this informatio n is protected by the Federal Confidentiality of Alcohol and Drug Abuse Patient Records regulations: The Federal rules restrict any use of the information to criminally investigate or prosecute any alcohol or drug abuse patient.[facility] the event this information is protected by the Federal Confidentiality of Alcohol and Drug Abuse Patient Records regulations: The Federal rules restrict any use of the information to criminally investigate or prosecute any alcohol or drug abuse patient.[facility] CenterIn the event this information is protected by the Federal Confidentiality of Alcohol and Drug Abuse Patient Records regulations: The Federal rules restrict any use of the information to criminally investigate or prosecute any alcohol or drug abuse patient.[facility] CenterIn the event this information is protected by the Federal Confidentiality of Alcohol and Drug Abuse Patient Records regulations: The Federal rules restrict any use of the information to criminally investigate or prosecute any alcohol or drug abuse patient.[facility] CenterIn the event this information is protected by the Federal Confidentiality of Alcohol and Drug Abuse Patient Records regulations: The Federal rules restrict any use of the information to criminally investigate or prosecute any alcohol or drug abuse patient.[facility] CenterIn the event this information is protected by the Federal Confidentiality of Alcohol and Drug Abuse Patient Records regulations: The Federal rules restrict any use of the information to criminally investigate or prosecute any alcohol or drug abuse patient.[facility] CenterIn the event this information is protected by the Federal Confidentiality of Alcohol and Drug Abuse Patient Records regulations: The Federal rules restrict any use of the information to criminally investigate or prosecute any alcohol or drug abuse patient.[facility] CenterIn the event this information is protected by the Federal Confidentiality of Alcohol and Drug Abuse Patient Records regulations: The Federal rules restrict any use of the information to criminally investigate or prosecute any alcohol or drug abuse patient.[facility] CenterIn the event this information is protected by the Federal Confidentiality of Alcohol and Drug Abuse Patient Records regulations: The Federal rules restrict any use of the information to criminally investigate or prosecute any alcohol or drug abuse patient.[facility] CenterIn the event this information is protected by the Federal Confidentiality of Alcohol and Drug Abuse Patient Records regulations: The Federal rules restrict any use of the information to criminally investigate or prosecute any alcohol or drug abuse patient.[facility] CenterIn the event this information is protected by the Federal Confidentiality of Alcohol and Drug Abuse Patient Records regulations: The Federal rules restrict any use of the information to criminally investigate or prosecute any alcohol or drug abuse patient.[facility] CenterIn the event this information is protected by the Federal Confidentiality of Alcohol and Drug Abuse Patient Records regulations: The Federal rules restrict any use of the information to criminally investigate or prosecute any alcohol or drug abuse patient.[facility] CenterIn the event this information is protected by the Federal Confidentiality of Alcohol and Drug Abuse Patient Records regulations: The Federal rules restrict any use of the information to criminally investigate or prosecute any alcohol or drug abuse patient.[facility] CenterIn the event this information is protected by the Federal Confidentiality of Alcohol and Drug Abuse Patient Records regulations: The Federal rules restrict any use of the information to criminally investigate or prosecute any alcohol or drug abuse patient.[facility] CenterIn the event this information is protected by the Federal Confidentiality of Alcohol and Drug Abuse Patient Records regulations: The Federal rules restrict any use of the information to criminally investigate or prosecute any alcohol or drug abuse patient.[facility] CenterIn the event this information is protected by the Federal Confidentiality of Alcohol and Drug Abuse Patient Records regulations: The Federal rules restrict any use of the information to criminally investigate or prosecute any alcohol or drug abuse patient.[facility] CenterIn the event this information is protected by the Federal Confidentiality of Alcohol and Drug Abuse Patient Records regulations: The Federal rules restrict any use of the information to criminally investigate or prosecute any alcohol or drug abuse patient.[facility] CenterIn the event this information is protected by the Federal Confidentiality of Alcohol and Drug Abuse Patient Records regulations: The Federal rules restrict any use of the information to criminally investigate or prosecute any alcohol or drug abuse patient.[facility] CenterIn the event this information is protected by the Federal Confidentiality of Alcohol and Drug Abuse Patient Records regulations: The Federal rules restrict any use of the information to criminally investigate or prosecute any alcohol or drug abuse patient.[facility] CenterIn the event this information is protected by the Federal Confidentiality of Alcohol and Drug Abuse Patient Records regulations: The Federal rules restrict any use of the information to criminally investigate or prosecute any alcohol or drug abuse patient.[facility] CenterIn the event this information is protected by the Federal Confidentiality of Alcohol and Drug Abuse Patient Records regulations: The Federal rules restrict any use of the information to criminally investigate or prosecute any alcohol or drug abuse patient.[facility] CenterIn the event this information is protected by the Federal Confidentiality of Alcohol and Drug Abuse Patient Records regulations: The Federal rules restrict any use of the information to criminally investigate or prosecute any alcohol or drug abuse patient.[facility] CenterIn the event this information is protected by the Federal Confidentiality of Alcohol and Drug Abuse Patient Records regulations: The Federal rules restrict any use of the information to criminally investigate or prosecute any alcohol or drug abuse patient.[facility] CenterIn the event this information is protected by the Federal Confidentiality of Alcohol and Drug Abuse Patient Records regulations: The Federal rules restrict any use of the information to criminally investigate or prosecute any alcohol or drug abuse patient.[facility] CenterIn the event this information is protected by the Federal Confidentiality of Alcohol and Drug Abuse Patient Records regulations: The Federal rules restrict any use of the information to criminally investigate or prosecute any alcohol or drug abuse patient.[facility] CenterIn the event this information is protected by the Federal Confidentiality of Alcohol and Drug Abuse Patient Records regulations: The Federal rules restrict any use of the information to criminally investigate or prosecute any alcohol or drug abuse patient.[facility] CenterIn the event this information is protected by the Federal Confidentiality of Alcohol and Drug Abuse Patient Records regulations: The Federal rules restrict any use of the information to criminally investigate or prosecute any alcohol or drug abuse patient.[facility] CenterIn the event this information is protected by the Federal Confidentiality of Alcohol and Drug Abuse Patient Records regulations: The Federal rules restrict any use of the information to criminally investigate or prosecute any alcohol or drug abuse patient.[facility] CenterIn the event this information is protected by the Federal Confidentiality of Alcohol and Drug Abuse Patient Records regulations: The Federal rules restrict any use of the information to criminally investigate or prosecute any alcohol or drug abuse patient.[facility] CenterIn the event this information is protected by the Federal Confidentiality of Alcohol and Drug Abuse Patient Records regulations: The Federal rules restrict any use of the information to criminally investigate or prosecute any alcohol or drug abuse patient.[facility] CenterIn the event this information is protected by the Federal Confidentiality of Alcohol and Drug Abuse Patient Records regulations: The Federal rules restrict any use of the information to criminally investigate or prosecute any alcohol or drug abuse patient.[facility] CenterIn the event this information is protected by the Federal Confidentiality of Alcohol and Drug Abuse Patient Records regulations: The Federal rules restrict any use of the information to criminally investigate or prosecute any alcohol or drug abuse patient.[facility] CenterIn the event this information is protected by the Federal Confidentiality of Alcohol and Drug Abuse Patient Records regulations: The Federal rules restrict any use of the information to criminally investigate or prosecute any alcohol or drug abuse patient.[facility] CenterIn the event this information is protected by the Federal Confidentiality of Alcohol and Drug Abuse Patient Records regulations: The Federal rules restrict any use of the information to criminally investigate or prosecute any alcohol or drug abuse patient.[facility] CenterIn the event this information is protected by the Federal Confidentiality of Alcohol and Drug Abuse Patient Records regulations: The Federal rules restrict any use of the information to criminally investigate or prosecute any alcohol or drug abuse patient.[facility] CenterIn the event this information is protected by the Federal Confidentiality of Alcohol and Drug Abuse Patient Records regulations: The Federal rules restrict any use of the information to criminally investigate or prosecute any alcohol or drug abuse patient.[facility] CenterIn the event this information is protected by the Federal Confidentiality of Alcohol and Drug Abuse Patient Records regulations: The Federal rules restrict any use of the information to criminally investigate or prosecute any alcohol or drug abuse patient.[facility] CenterIn the event this information is protected by the Federal Confidentiality of Alcohol and Drug Abuse Patient Records regulations: The Federal rules restrict any use of the information to criminally investigate or prosecute any alcohol or drug abuse patient.[facility] Center[facility] the event this information is protected by the Federal Confidentiality of Alcohol and Drug Abuse Patient Records regulations: The Federal rules restrict any use of the information to criminally investigate or prosecute any alcohol or drug abuse patient.[facility] Center[facility] the event this information is protected by the Federal Confidentiality of Alcohol and Drug Abuse Patient Records regulations: The Federal rules restrict any use of the information to criminally investigate or prosecute any alcohol or drug abuse patient.[facility] CenterIn the event this information is protected by the Federal Confidentiality of Alcohol and Drug Abuse Patient Records regulations: The Federal rules restrict any use of the information to criminally investigate or prosecute any alcohol or drug abuse patient.[facility] CenterIn the event this information is protected by the Federal Confidentiality of Alcohol and Drug Abuse Patient Records regulations: The Federal rules restrict any use of the information to criminally investigate or prosecute any alcohol or drug abuse patient.[facility] CenterIn the event this information is protected by the Federal Confidentiality of Alcohol and Drug Abuse Patient Records regulations: The Federal rules restrict any use of the information to criminally investigate or prosecute any alcohol or drug abuse patient.[facility] CenterIn the event this information is protected by the Federal Confidentiality of Alcohol and Drug Abuse Patient Records regulations: The Federal rules restrict any use of the information to criminally investigate or prosecute any alcohol or drug abuse patient.[facility] CenterIn the event this information is protected by the Federal Confidentiality of Alcohol and Drug Abuse Patient Records regulations: The Federal rules restrict any use of the information to criminally investigate or prosecute any alcohol or drug abuse patient.[facility] CenterIn the event this information is protected by the Federal Confidentiality of Alcohol and Drug Abuse Patient Records regulations: The Federal rules restrict any use of the information to criminally investigate or prosecute any alcohol or drug abuse patient.[facility] CenterIn the event this information is protected by the Federal Confidentiality of Alcohol and Drug Abuse Patient Records regulations: The Federal rules restrict any use of the information to criminally investigate or prosecute any alcohol or drug abuse patient.[facility] CenterIn the event this information is protected by the Federal Confidentiality of Alcohol and Drug Abuse Patient Records regulations: The Federal rules restrict any use of the information to criminally investigate or prosecute any alcohol or drug abuse patient.[facility] CenterIn the event this information is protected by the Federal Confidentiality of Alcohol and Drug Abuse Patient Records regulations: The Federal rules restrict any use of the information to criminally investigate or prosecute any alcohol or drug abuse patient.[facility] CenterIn the event this information is protected by the Federal Confidentiality of Alcohol and Drug Abuse Patient Records regulations: The Federal rules restrict any use of the information to criminally investigate or prosecute any alcohol or drug abuse patient.[facility] CenterIn the event this information is protected by the Federal Confidentiality of Alcohol and Drug Abuse Patient Records regulations: The Federal rules restrict any use of the information to criminally investigate or prosecute any alcohol or drug abuse patient.[facility] CenterIn the event this information is protected by the Federal Confidentiality of Alcohol and Drug Abuse Patient Records regulations: The Federal rules restrict any use of the information to criminally investigate or prosecute any alcohol or drug abuse patient.[facility] CenterIn the event this information is protected by the Federal Confidentiality of Alcohol and Drug Abuse Patient Records regulations: The Federal rules restrict any use of the information to criminally investigate or prosecute any alcohol or drug abuse patient.[facility] Reason for Visit (unrecogniz ed section and content) Reason Comments Refill Request Reason Onset Date Comments Refill Request 11/05/2021 Reason Onset Date Comments Refill Request 11/23/2021 Reason Comments Radiology Mammogram Reason Onset Date Comments Refill Request 01/25/2022 Reason Comments Follow Up Medication Management Reason Comments Individual Counseling Telehealth (Audio) Reason Comments Radiology XR Reason Comments Follow Up Telehealth (Audio) Medication Management Reason Comments Individual Counseling Telehealth (Video) Reason Onset Date Comments labs 10/25/2022 Refill Request 10/05/2022 Reason Comments Radiology MRI Specialty Diagnoses / Procedures Referred By Contac t Referred To Contact MR IMAGING Diagnoses 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) Procedures MRA BRAIN WO/W IVCON MRA; HEAD W & WO CONTRAST Katie Zhong MD [address] [place] [address] Mr Imaging [place] [address] Referral ID Status Reason Start Date Expiration Date V isits Requested Visits Authorized [id number] Closed Auto-Generate d Referral 12/21/2022 02/19/2023 1 1 Reason Comments Telehealth (Audio) Reason Comments Individual Counseling Telehealth (Audio) Reason Comments Individual Counseling Telehealth (Audio) Behavioral Health Couples Counseling Reason Comments Individual Counseling Reason Comments Telehealth (Audio) Individual Counseling Behavioral Health Couples Counseling Reason Comments Individual Counseling Behavioral Health Couples Counseling Telehealth (Audio) Specialty Diagnoses / Procedures Referred By Contac t Referred To Contact MR IMAGING Diagnoses Dizziness Procedures MRI BRAIN WO IVCON MRI BRAIN BRAIN STEM W/[place] [address] JENNI CARBONE [facility] [address] [place] [address] [place] [address] Referral ID Status Reason Start Date Expiration Date V isits Requested Visits Authorized [id number] Closed Auto-Generate d Referral 07/13/2023 04/24/2024 1 1 Reason Onset Date Comments Refill Request 07/19/2023 Reason Comments Follow Up Reason Onset Date Comments Refill Request 09/14/2023 Reason Onset Date Comments Psychiatric Problem 09/26/2023 Reason Comments Inpatient Discharge Follow Up Medication Management Follow Up Reason Comments Consult Nausea, vomiting for about 4 to 6 years Reason Onset Date Comments APPOINTMENT SCHEDULING 07/21/2023 Reason Onset Date Comments Refill Request 07/11/2024 Reason Onset Date Comments Refill Request 07/24/2024 Care Teams (unrecognized sec tion and content) Freight Representative Relationship Specialty [place] [address] [facility] Jesus [facility] [address] [place], [place] [id number] PCP - General Internal Medicine 05/02/18 Jaret Fernández (Hist) [address] [place] [address] Referring Physical Medicine and Rehab 11/18/17 [place] [address] [facility] [address] [place] [address] Home Care Physician Infectious Diseases 11/18/17 Casi Gaytan (Hist), PT [address] [place] [address] [employer]yclable Products Sorter Post Acute Care 11/19/17 Jey Hutchinson MD [address] [place] [address] Primary Staff Physician Cardiology 07/11/18 [facility] [address] [place], [place] Mental Health Provider Psych/Mental Health 02/18/19 Freight Representative Relationship Specialty [place] [address] JENNI CARBONE [facility] [address] [place] [address] PCP - General Internal Medicine 05/02/18 Jaret Fernández (Hist) [address] [place] [address] Referring Physical Medicine and Rehab 11/18/17 [place] [address] [facility] CARBONE [address] [address] Home Care Physician Infectious Diseases 11/18/17 Casi Gaytan (Hist), PT [address] [place] [address] [employer]able [employer] Sorter Post Acute Care 11/19/17 Jey Hutchinson MD [address] [place], [place] [id number] Primary Staff Physician Cardiology 07/11/18 [facility] [address] [place], [place] Mental Health Provider Psych/Mental Health 02/18/19 Freight Representative Relationship Specialty [place] [address] [address] [address] PCP - General Internal Medicine 05/02/18 Jaret Fernández (Hist) [address] [place] [address] Referring Physical Medicine and Rehab 11/18/17 [place] [address] [facility] [address] [place] [address] Home Care Physician Infectious Diseases 11/18/17 Casi Gaytan (Hist), PT [address] [place], [place] [address] [employer] Sorter Post Acute Care 11/19/17 Jey Hutchinson MD [address] [place] [address] Primary Staff Physician Cardiology 07/11/18 [facility] [address] [place], [place] Mental Health Provider Psych/Mental Health 02/18/19 Freight Representative Relationship Specialty [place] [address] [facility] [address] [address] PCP - General Internal Medicine 05/02/18 Jaret Fernández (Hist) [address] [place] [address] Referring Physical Medicine and Rehab 11/18/17 [place] [address] [facility] [address] [place] [address] Home Care Physician Infectious Diseases 11/18/17 Casi Gaytan (Hist), PT [address] [place] [address] [employer] Sorter Post Acute Care 11/19/17 Jey Hutchinson MD [address] [place] [address] Primary Staff Physician Cardiology 07/11/18 [facility] [address] [place] Mental Health Provider Psych/Mental Health 02/18/19 Freight Representative Relationship Specialty [place] [address] [facility] [address] [place] [address] PCP - General Internal Medicine 05/02/18 Jaret Fernández (Hist) [address] [place] [address] Referring Physical Medicine and Rehab 11/18/17 [place], [address] JENNI CARBONE [facility] [address] [place] [address] Home Care Physician Infectious Diseases 11/18/17 Casi Gaytan (Hist), PT [address] [place], [place] [id number] [employer]orter Post Acute Care 11/19/17 Jey Hutchinson MD [address] [place], [place] [id number] Primary Staff Physician Cardiology 07/11/18 [facility] and [place] [address] [place], [place] Mental Health Provider Psych/Mental Health 02/18/19 Freight Representative Relationship Specialty [place] [address] JENNI CARBONE [facility] [address] [place] [address] PCP - General Internal Medicine 05/02/18 Jaret Fernández (Hist) [address] [place] [address] Referring Physical Medicine and Rehab 11/18/17 [place] [address] JENNI CARBONE [facility] [address] [place] [address] Home Care Physician Infectious Diseases 11/18/17 Casi Gaytan (Hist), PT [address] [place], [place] [id number] [employer] Sorter Post Acute Care 11/19/17 Jey Hutchinson MD [address] [place], [place] [id number] Primary Staff Physician Cardiology 07/11/18 [facility] [address] [place] Mental Health Provider Psych/Mental Health 02/18/19 Freight Representative Relationship Specialty [place] [address] [address] [address] PCP - General Internal Medicine 05/02/18 Jaret Fernández (Hist) [address] [place] [address] Referring Physical Medicine and Rehab 11/18/17 [place] [address] [address] [address] Home Care Physician Infectious Diseases 11/18/17 Casi Gaytan (Hist), PT [address] [place] [address] [employer]able Products Sorter Post Acute Care 11/19/17 Jey Hutchinson MD [address] [place], [place] [id number] Primary Staff Physician Cardiology 07/11/18 [facility] [address] [place] Mental Health Provider Psych/Mental Health 02/18/19 Freight Representative Relationship Specialty Start [place] [address] [address] PCP - General Internal Medicine 05/02/18 Jaret Fernández (Hist) [address] [place] [address] Referring Physical Medicine and Rehab 11/18/17 [place] [address] [facility] CARBONE [facility] [address] [place] [address] Home Care Provider Infectious Diseases 11/18/17 Casi Gaytan (Hist), PT [address] [place] [address] [employer]able Products Sorter Post Acute Care 11/19/17 Jey Hutchnison MD [address] [place] [address] Primary Staff Physician Cardiology 07/11/18 [facility] [address] [place] Mental Health Provider Psych/Mental Health 02/18/19 Freight Representative Relationship Specialty [place] [address] JENNI ALMANZAE [place] [address] [place] [address] PCP - General Internal Medicine 05/02/18 Jaret Fernández (Hist) [address] [place] [address] Referring Physical Medicine and Rehab 11/18/17 [place] [address] [facility] [address] [place] [address] Home Care Provider Infectious Diseases 11/18/17 Casi Gaytan (Hist), PT [address] [place] [address] Recyclable Products Sorter Post Acute Care 11/19/17 Jey Hutchinson MD [address] [place] [address] Primary Staff Physician Cardiology 07/11/18 [facility] [address] [place] Mental Health Provider Psych/Mental Health 02/18/19 Freight Representative Relationship Specialty [place] [address] [address] CARBONE [place] [address] [place] [address] PCP - General Internal Medicine 05/02/18 Jaret Fernández (Hist) [address] [place] [address] Referring Physical Medicine and Rehab 11/18/17 [place] [address] JENNI CARBONE [facility] [address] [place] [address] Home Care Provider Infectious Diseases 11/18/17 Casi Gaytan (Hist), PT [address] [place] [address] [employer]yclable Products Sorter Post Acute Care 11/19/17 Jey Hutchinson MD [address] [place] [address] Primary Staff Physician Cardiology 07/11/18 [facility] and [address] Mental Health Provider Psych/Mental Health 02/18/19 Freight Representative Relationship Specialty [place] [address] JENNI CARBONE [facility] [address] [place] [address] PCP - General Internal Medicine 05/02/18 Jaret Fernández (Hist) [address] [place] [address] Referring Physical Medicine and Rehab 11/18/17 [place] [address] [facility] CARBONE [facility] [address] [place] [address] Home Care Provider Infectious Diseases 11/18/17 Casi Gaytan (Hist), PT [address] [place], [place] [address]69[address] [employer] Sorter Post Acute Care 11/19/17 Jey Hutchinson MD [address] [place] [address] Primary Staff Physician Cardiology 07/11/18 [facility] [address] [place] Mental Health Provider Psych/Mental Health 02/18/19 Freight Representative Relationship Specialty [place] [address] JENNI CARBONE [facility] [address] [place], [place] [id number] PCP - General Internal Medicine 05/02/18 Jaret Fernández (Hist) [address] [place], [place] [address] Referring Physical Medicine and Rehab 11/18/17 [place] [address] JENNI CARBONE [facility] [address] [place] [address] Home Care Provider Infectious Diseases 11/18/17 Casi Gaytan (Hist), PT [address] [place] [address] Recyclable Products Sorter Post Acute Care 11/19/17 Jey Hutchinson MD [address] [place], [place] [address] Primary Staff Physician Cardiology 07/11/18 [facility] [address] [place] Mental Health Provider Psych/Mental Health 02/18/19 Freight Representative Relationship Specialty Start [place] [address] JENNI CARBONE [facility] [address] [place] [address] PCP - General Internal Medicine 05/02/18 Jaret Fernández (Hist) [address] [place], [place] 664[address] Referring Physical Medicine and Rehab 11/18/17 [place] [address] JENNI CARBONE [facility] [address] [place] [address] Home Care Provider Infectious Diseases 11/18/17 Casi Gaytan (Hist), PT [address] [place] [address] [employer]able Products Sorter Post Acute Care 11/19/17 Jey Hutchinson MD [address] [place] [address] Primary Staff Physician Cardiology 07/11/18 [facility] [address] [place] Mental Health Provider Psych/Mental Health 02/18/19 Freight Representative Relationship Specialty [place] [address] [place] [address] PCP - General Internal Medicine 05/02/18 Jaret Fernández (Hist) [address] [place] [address] Referring Physical Medicine and Rehab 11/18/17 [place] [address] [place] [address] [place] [address] Home Care Provider Infectious Diseases 11/18/17 Casi Gaytan (Hist), PT [address] [place] [address] [employer]yclable Products Sorter Post Acute Care 11/19/17 Jey Hutchinson MD [address] [place] [address] Primary Staff Physician Cardiology 07/11/18 [facility] [address] [place] Mental Health Provider Psych/Mental Health 02/18/19 Freight Representative Relationship Specialty [place] [address] [place] [address] PCP - General Internal Medicine 05/02/18 Jaret Fernández (Hist) [address] [place] [address] Referring Physical Medicine and Rehab 11/18/17 [place] [address] JENNI CARBONE [facility] [address] [place] [address] Home Care Provider Infectious Diseases 11/18/17 Casi Gaytan (Hist), PT [address] [place] [address] [employer]able Products Sorter Post Acute Care 11/19/17 Jey Hutchinson MD [address] [place], [place] 22658[address] Primary Staff Physician Cardiology 07/11/[address] Mental Health Provider Psych/Mental Health 02/18/19 Freight Representative Relationship Specialty [place] [address] [facility] CAR[facility]ONE [facility] [address] [place] [address] PCP - General Internal Medicine 05/02/18 Jaret Fernández (Hist) [address] [place] [address] Referring Physical Medicine and Rehab 11/18/17 [place] [address] [facility] CARBONE [facility] [address] [place] [address] Home Care Provider Infectious Diseases 11/18/17 Casi Gaytan (Hist), PT [address] [place], [place] [address] [employer] Sorter Post Acute Care 11/19/17 Jey Hutchinson MD [address] [place] [address] Primary Staff Physician Cardiology 07/11/[address] [place] Mental Health Provider Psych/Mental Health 02/18/19 Freight Representative Relationship Specialty Start [place] [address] JENNI CARBONE [facility] [address] [place] [address] PCP - General Internal Medicine 05/02/18 Jaret Fernández (Hist) [address] [place] [address] Referring Physical Medicine and Rehab 11/18/17 [place] [address] [facility] [address] [address] Home Care Provider Infectious Diseases 11/18/17 Casi Gaytan (Hist), PT [address] [place], [place] 569[address] [employer] Products Sorter Post Acute Care 11/19/17 Jey Hutchinson MD [address] [place], [place] 447[address] Primary Staff Physician Cardiology 07/11/18 [facility] [address] [place] Mental Health Provider Psych/Mental Health 02/18/19 Freight Representative Relationship Specialty [place] [address] [address] PCP - General Internal Medicine 05/02/18 Jaret Fernández (Hist) [address] [place] [address] Referring Physical Medicine and Rehab 11/18/17 [place] [address] [facility] [address] [place] [address] Home Care Provider Infectious Diseases 11/18/17 Casi Gaytan (Hist), PT [address] [place] [address] Rec[employer]able Products Sorter Post Acute Care 11/19/17 Jey Hutchinson MD [address] [place] [address] Primary Staff Physician Cardiology 07/11/18 [facility] [address] [place] Mental Health Provider Psych/Mental Health 02/18/19 Freight Representative Relationship Specialty [place] [address] [facility] [address] [place] [address] PCP - General Internal Medicine 05/02/18 Jaret Fernández (Hist) [address] [place] [address] Referring Physical Medicine and Rehab 11/18/17 [place] [address] [facility] [address] [place] [address] Home Care Provider Infectious Diseases 11/18/17 Casi Gaytan (Hist), PT [address] [place] [address] [employer]able Products Sorter Post Acute Care 11/19/17 Jey Hutchinson MD [address] [place] [address] Primary Staff Physician Cardiology 07/11/18 [facility] [address] [place] Mental Health Provider Psych/Mental Health 02/18/19 Freight Representative Relationship Specialty Start [place] [address] [place] [address] PCP - General Internal Medicine 05/02/18 Jaret Fernández (Hist) [address] [place] [address] Referring Physical Medicine and Rehab 11/18/17 [place] [address] JENNI CARBONE [facility] [address] [place] [address] Home Care Provider Infectious Diseases 11/18/17 Casi Gaytan (Hist), PT [address] [place] [address] [employer] Sorter Post Acute Care 11/19/17 Jey Hutchinson MD [address] [place] [address] Primary Staff Physician Cardiology 07/11/18 [facility] [address] [place] Mental Health Provider Psych/Mental Health 02/18/19 Freight Representative Relationship Specialty Start [place] [address] JENNI CARBONE [facility] [address] [place] [address] PCP - General Internal Medicine 05/02/18 Jaret Fernández (Hist) [address] [place] [address] Referring Physical Medicine and Rehab 11/18/17 [place] [address] JENNI CARBONE [facility] [address] [place] [address] Home Care Provider Infectious Diseases 11/18/17 Casi Gaytan (Hist), PT [address] [place], [place] 42[address] [employer] S[employer] Post Acute Care 11/19/17 Jey Hutchinson MD [address] [facility] [address] Primary Staff Physician Cardiology 07/11/18 [facility] [address] [place] Mental Health Provider Psych/Mental Health 02/18/19 Freight Representative Relationship Specialty [place] [address] [facility] Jesus [facility] [address] [place] [address] PCP - General Internal Medicine 05/02/18 Jaret Fernández (Hist) [address] [place] [id number] Referring Physical Medicine and Rehab 11/18/17 [place] [address] [facility] [address] [place] [address] Home Care Provider Infectious Diseases 11/18/17 Jey Hutchinson MD [address] [place] [id number] Primary Staff Physician Cardiology 07/11/18 [facility] [address] [place] Mental Health Provider Psych/Mental Health 02/18/19 Freight Representative Relationship Specialty [place] [id number] [facility] [address] [id number] PCP - General Internal Medicine 05/02/18 Jaret Fernández (Hist) [address] [place] [id number] Referring Physical Medicine and Rehab 11/18/17 [place] [address] [facility] Jesus [facility] [address] [place] [address] Home Care Provider Infectious Diseases 11/18/17 Jey Hutchinson MD [address] [place] [address] Primary Staff Physician Cardiology 07/11/18 [facility] [address] [place], [place] Mental Health Provider Psych/Mental Health 02/18/19 Freight Representative Relationship Specialty [place] [address] [address] PCP - General Internal Medicine 05/02/18 Jaret Fernández (Hist) [id number] [place] [address] [id number] Referring Physical Medicine and Rehab 11/18/17 [place] [address] [facility] [address] [place] [address] Home Care Provider Infectious Diseases 11/18/17 Jey Hutchinson MD [address] [place] [address] Primary Staff Physician Cardiology 07/11/18 [facility] [address] [place] Mental Health Provider Psych/Mental Health 02/18/19 Freight Representative Relationship Specialty [place] [address] [id number] PCP - General Internal Medicine 05/02/18 Jaret Fernández (Hist) [address] [place] [address] Referring Physical Medicine and Rehab 11/18/17 [place] [address] [facility] [address] [place] [address] Home Care Provider Infectious Diseases 11/18/17 Jey Hutchinson MD [address] [place], [place] [id number] Primary Staff Physician Cardiology 07/11/[address] Mental Health Provider Psych/Mental Health 02/18/19 Freight Representative Relationship Specialty [place] [address] JENNI ALMANZAE [facility] [address] [place] [address] PCP - General Internal Medicine 05/02/18 Jaret Fernández (Hist) [id number] [place] [address] Referring Physical Medicine and Rehab 11/18/17 [place] [address] [address] CARBONE [facility] [address] [place] [address] Home Care Provider Infectious Diseases 11/18/17 Jey Hutchinson MD [address] [place] [address] Primary Staff Physician Cardiology 07/11/18 [facility] [address] [place] Mental Health Provider Psych/Mental Health 02/18/19 Freight Representative Relationship Specialty [place] [address] [address] [address] PCP - General Internal Medicine 05/02/18 Jaret Fernández MD Referring Physical Medicine and Rehab 11/18/17 [place] [address] JENNI CARBONE [facility] [address] [place], [place] [phone] Home Care Provider Infectious Diseases 11/18/17 Jey Hutchinson MD [address] [facility] [place] [address] Primary Staff Physician Cardiology 07/11/18 [facility] [address] [place], [place] Mental Health Provider Psych/Mental Health 02/18/19 Freight Representative Relationship Specialty [place] [address] [address] [id number] PCP - General Internal Medicine 05/02/18 Jaret Fernández MD Referring Physical Medicine and Rehab 11/18/17 Nella Romo V, MD Home Care Provider Infectious Diseases 11/18/17 Jey Hutchinson MD [address] [facility] [place] [phone] Primary Staff Physician Cardiology 07/11/18 [facility] [address] [place] Mental Health Provider Psych/Mental Health 02/18/19 Freight Representative Relationship Specialty [place] [address] [address] PCP - General Internal Medicine 05/02/18 Jaret Fernández MD Referring Physical Medicine and Rehab 11/18/17 Nella Romo V, MD Home Care Provider Infectious Diseases 11/18/17 Jey Hutchinson MD [address] [place] [address] Primary Staff Physician Cardiology 07/11/18 [facility] [address] [place] Mental Health Provider Psych/Mental Health 02/18/19 Freight Representative Relationship Specialty [place] [address] [address] PCP - General Internal Medicine 05/02/18 Jaret Fernández MD Referring Physical Medicine and Rehab 11/18/17 Nella Romo V, MD Home Care Provider Infectious Diseases 11/18/17 Jey Hutchinson MD [address] [place] [address] Primary Staff Physician Cardiology 07/11/18 [facility] [address] [place] Mental Health Provider Psych/Mental Health 02/18/19 Freight Representative Relationship Specialty [place] [address] [address] PCP - General Internal Medicine 05/02/18 Jaret Fernández MD Referring Physical Medicine and Rehab 11/18/17 Nella Romo V, MD Home Care Provider Infectious Diseases 11/18/17 Jey Hutchinson MD [address] [place] [address] Primary Staff Physician Cardiology 07/11/18 [facility] [address] [place] Mental Health Provider Psych/Mental Health 02/18/19 Freight Representative Relationship Specialty [place] [address] [address] PCP - General Internal Medicine 05/02/18 Jaret Fernández MD Referring Physical Medicine and Rehab 11/18/17 Nella Romo V, MD Home Care Provider Infectious Diseases 11/18/17 Jey Hutchinson MD [address] [place], [place] [id number] Primary Staff Physician Cardiology 07/11/18 [facility] [address] [place] Mental Health Provider Psych/Mental Health 02/18/19 Freight Representative Relationship Specialty [place] [address] [facility] [address] [place] [address] PCP - General Internal Medicine 05/02/18 Jaret Fernández MD Referring Physical Medicine and Rehab 11/18/17 Nella Romo V, MD Home Care Provider Infectious Diseases 11/18/17 Jey Hutchinson MD [address] [place], [place] [phone] Primary Staff Physician Cardiology 07/11/18 [facility] [address] [place] Mental Health Provider Psych/Mental Health 02/18/19 Freight Representative Relationship Specialty [place] [address] [facility] [address] [place] [address] PCP - General Internal Medicine 05/02/18 Jaret Fernández MD Referring Physical Medicine and Rehab 11/18/17 Nella Romo V, MD Home Care Provider Infectious Diseases 11/18/17 Jey Hutchinson MD [address] [place], [place] [id number] Primary Staff Physician Cardiology 07/11/18 [facility] [address] [place] Mental Health Provider Psych/Mental Health 02/18/19 Freight Representative Relationship Specialty [place] [address] [facility] [address] [phone] PCP - General Internal Medicine 05/02/18 Jaret Fernández MD Referring Physical Medicine and Rehab 11/18/17 Nella Romo V, MD Home Care Provider Infectious Diseases 11/18/17 Jey Hutchinson MD [address] [place] [address] Primary Staff Physician Cardiology 07/11/18 [facility] [address] [place] Mental Health Provider Psych/Mental Health 02/18/19 Freight Representative Relationship Specialty [place] [address] [facility] [address] [phone] PCP - General Internal Medicine 05/02/18 Jaret Fernández MD Referring Physical Medicine and Rehab 11/18/17 Nella Romo V, MD Home Care Provider Infectious Diseases 11/18/17 Jey Hutchinson MD [address] [place], [place] [id number] Primary Staff Physician Cardiology 07/11/18 [facility] [address] [place] Mental Health Provider Psych/Mental Health 02/18/19 Freight Representative Relationship Specialty [place] [address] [facility] [address] [address] PCP - General Internal Medicine 05/02/18 Jaret Fernández MD Referring Physical Medicine and Rehab 11/18/17 Nella Romo V, MD Home Care Provider Infectious Diseases 11/18/17 Jey Hutchinson MD [address] [place] [address] Primary Staff Physician Cardiology 07/11/18 [facility] [address] [place] Mental Health Provider Psych/Mental Health 02/18/19 Freight Representative Relationship Specialty [place] [address] [id number] PCP - General Internal Medicine 05/02/18 Jaret Fernández MD Referring Physical Medicine and Rehab 11/18/17 Nella Romo V, MD Home Care Provider Infectious Diseases 11/18/17 Jey Hutchinson MD [address] [facility] [place] [address] Primary Staff Physician Cardiology 07/11/18 [facility] [address] [place] Mental Health Provider Psych/Mental Health 02/18/19 Team Status: Active Member Role Status Dates FELECIA ELY Primary Care Provider Active Team Status: Inactive Member Role Status Dates Dr. Moses Vaz , DO Emergency Provider Active Start: July 03, 2024 End: July 03, 2024 SOLIS LINK Primary Care Provider Active Sta rt: July 03, 2024 End: July 03, 2024 Freight Representative Relationship Specialty [place] [address] [address]Jesus [address] [address] PCP - General Internal Medicine 05/02/18 Jaret Fernández MD Referring Physical Medicine and Rehab 11/18/17 Nella Romo V, MD Home Care Provider Infectious Diseases 11/18/17 Jey Hutchinson MD [address] [facility] [place] [address] Primary Staff Physician Cardiology 07/11/18 [facility] [address] [place] Mental Health Provider Psych/Mental Health 02/18/19 Freight Representative Relationship Specialty [place] [address] [address] [id number] PCP - General Internal Medicine 05/02/18 Jaret Fernández MD Referring Physical Medicine and Rehab 11/18/17 Nella Romo V, MD Home Care Provider Infectious Diseases 11/18/17 Jye Hutchinson MD [address] [place] [address] Primary Staff Physician Cardiology 07/11/18 [facility] [address] Mental Health Provider Psych/Mental Health 02/18/19 Freight Representative Relationship Specialty [place] [address] [address] [address] PCP - General Internal Medicine 05/02/18 Jaret Fernández MD Referring Physical Medicine and Rehab 11/18/17 Nella Romo V, MD Home Care Provider Infectious Diseases 11/18/17 Jey Hutchinson MD [address] [place] [address] Primary Staff Physician Cardiology 07/11/18 [facility] [address] [facility] [place], [place] Mental Health Provider Psych/Mental Health 02/18/19 Freight Representative Relationship Specialty [place] [address] [address] [place] [address] PCP - General Internal Medicine 05/02/18 Jaret Fernández MD Referring Physical Medicine and Rehab 11/18/17 Nella Romo V, MD Home Care Provider Infectious Diseases 11/18/17 Jey Hutchinson MD [address] [place] [address] Primary Staff Physician Cardiology 07/11/18 [facility] [address] [place] Mental Health Provider Psych/Mental Health 02/18/19 Scheduled Active and Recently Administ ered Medications (unrecognized section and content) Medication Order 06/18/2023 06/19/2023 06/20/2023 ondansetron (ZOFRAN) 4 MG/2ML injection (COMPLETED) 4 mg, Intravenous Push, ONCE, 1 dose, On Tue06/20/23 at 1909 1947 (Given - Provid er: Martha De Souza RN) sodium chloride 0.9 % iv bolus (COMPLETED) 1,000 mL, at 9,999 mL/hr, Intravenous, FLUID BOLUS, 1 dose, On Tue06/20/23 at 1909 1947 (IV New Bag - P rovider: Martha De Souza, MIRIAN)2110 (IV Stop - Provider: Martha De Souza RN) Goals (unrecognized section and content) Goals may be documented in a n alternate section FOR RECORDS PERTAINING TO PATIENTS WHO ARE OR HAVE BEEN ENROLLED IN A CHEMICAL DEPENDENCY/SUBSTANCEABUSE PROGRAM, SOME INFORMATION MAY BE OMITTED. This clinical summary was aggregated from multiple sources. Caution should be exercised in using it in the provision of clinical care. This summary normalizes information from multiple sources, and as a consequence, information in this document may materially change the coding, format and clinical context of patient data. In addition, data may be omitted in some cases. CLINICAL DECISIONS SHOULD BE BASED ON THE PRIMARY CLINICAL RECORDS. [facility] [employer] [facility]. provides no warranty or guarantee of the accuracy or completeness of information in this document.
--- NOTE | 2024-12-09 00:03 | EX.ED.DYSGE1 ---
HPI History of Present Illness Chief Complaint: Anxiety Informant: patient and family Narrative Narrative: 44-year-old female states has been vomiting for 24 hours as a result of anxiety and she is out of her Ativan which is the fix for it. She has had this for a long time, diagnosed with cyclic vomiting syndrome, she states she does not have any diarrhea, abdominal pain, fevers, this has happened many times in the past as a result of her anxiety which came before the vomiting. She states she is having some chest burning which came after lots of vomiting as well. She denies dyspnea. [facility] Medical History Cyclic vomiting syndrome Home Medications ?Medication ?Instructions ?Recorded ?Last Taken ?Type albuterol sulfate 90 mcg/actuation 1 puff inhalation Q4H PRN PRN 07/03/24 Unknown History aerosol inhaler dyspnea amlodipine 5 mg tablet 5 mg PO DAILY blood pressure 07/03/24 Unknown History atorvastatin 80 mg tablet 80 mg PO QHS cholesterol 07/03/24 Unknown History gabapentin 100 mg capsule 200 mg PO TID 07/03/24 Unknown History lamotrigine 150 mg tablet 150 mg PO BID 07/03/24 Unknown History lorazepam 0.5 mg tablet 0.5 mg PO DAILY PRN anxiety 07/03/24 Unknown History lorazepam 0.5 mg tablet (Ativan) 0.5 mg PO TID PRN anxiety 5 days 07/03/24 Unknown Rx #15 tabs metoprolol succinate 50 mg 50 mg PO DAILY blood pressure 07/03/24 Unknown History tablet,extended release 24 hr mycophenolate mofetil 500 mg tablet 1,000 mg PO BID 07/03/24 Unknown History ondansetron 4 mg disintegrating 4 mg PO TID PRN nausea and 07/03/24 Unknown Rx tablet vomiting #21 tabs pantoprazole 40 mg tablet,delayed 40 mg PO BID 07/03/24 Unknown History release Allergy/AdvReac Type Severity Reaction Status Date / Time bee venom protein (honey bee) Allergy Severe Anaphylaxis Verified 12/08/24 22:57 tomato AdvReac Intermediate GASTROINTESTINAL Verified 12/08/24 22:57 UPSET Surgical History History of cholecystectomy Social History Smoking Status: Current every day smoker tobacco type: cigarettes ROS ROS ED Constitutional Constitutional ED: Denies chills or fever(s) Eyes Eyes: Denies change in vision or diplopia ENT ENT ED: Denies rhinorrhea or sore throat Cardiovascular Cardiovascular: Reports chest pain; Denies palpitations Respiratory/Chest Respiratory/Chest: Denies cough or dyspnea Gastrointestinal Gastrointestinal: Reports nausea and vomiting; Denies abdominal pain, diarrhea or hematemesis Genitourinary Genitourinary ED: Denies dysuria or hematuria Musculoskeletal Musculoskeletal: Denies back pain or neck pain Integumentary Denies abscess or rash Neurologic Neurologic: Denies headache(s), paresthesias or weakness Psychiatric Psychiatric: Reports anxiety; Denies suicidal thoughts EXAM Physical Exam Const Vital Signs: 12/08/24 22:56 12/09/24 01:23 Temperature 98.3 F Temperature Source Oral Pulse Rate 92 75 Respiratory Rate 18 20 H Blood Pressure 156/106 H 152/99 H Blood Pressure Mean 122 116 Pulse Ox 98 98 Oxygen Delivery Method Room Air Room Air Positive well nourished and well developed General Appearance ED: well developed and NAD HEENT Reports moist mucous membranes normocephalic and atraumatic Eyes PERRL and EOMs intact bilaterally Neck full ROM and supple Resp normal respiratory effort and clear to auscultation bilaterally Cardio regular rate, regular rhythm and no murmurs GI non-tender and non-distended Auscultation: normoactive bowel sounds Palpation: soft Back/Spine no CVA tenderness General Back: other FROM Extremity normal to inspection General Extremety ED: Negative for edema, pulses abnormal or tenderness General Extremity: Negative for edema or pulses abnormal Neuro oriented x3, CN's II-XII intact bilaterally and no sensory deficits noted Sensorium / Orientation: awake and alert Motor Exam: strength 5/5 throughout Skin no rashes or lesions noted and no wounds MDM MDM MDM Narrative Medical decision making narrative: Initially patient was treated with IV fluids, Zofran, Ativan. She did have resolution of her nausea and anxiety and felt much better. She still had the burning in her chest, we gave her a GI cocktail at that point when she was tolerating oral fluids well, and that chest burning resolved, consistent with GERD from vomiting. Her chemistries were done because she has a history of hypokalemia due to GI losses when this occurs, her potassium is normal but her creatinine is 2.04 which is higher than she has ever been in the past although we have only 1 other reading from about 5 months ago. The BUN:Creatinine is around 15:1, this could be due to dehydration. She has no symptoms of GI bleeding. Since she is tolerating oral fluids well and feeling much better, I have advised her to follow-up with her doctor and obtain repeat renal evaluation this coming week, and if she needs a refill of her Ativan to reach out to her monthly prescriber which she plans to do. At this time I am comfortable with her being discharged home and following up as an outpatient. Lab Data Attestation: I reviewed the patient's lab results. Labs: Laboratory Results - last 24 hr 12/09/24 00:23 Sodium 139 Potassium 3.6 Chloride 97 L Carbon Dioxide 21.0 Anion Gap 21 H BUN 29 H Creatinine 2.04 H Estim Creat Clear Calc 37.75 L Est GFR (MDRD) Non-Af 30 L BUN/Creatinine Ratio 14.4 Glucose 173 H Calcium 10.8 Serum , Qual NEGATIVE Discharge Plan Triage Chief Complaint: Anxiety ED Provider: Burton Martins Dx/Rx/DC Orders Clinical Impression: BORA (acute kidney injury), Dehydration, Cyclical vomiting, Anxiety attack, Chest pain due to GERD Instructions: ED Dehydration (Adult) Prescriptions: No Action lamotrigine 150 mg tablet 150 mg PO BID atorvastatin 80 mg tablet 80 mg PO QHS metoprolol succinate 50 mg tablet extended release 24 hr 50 mg PO DAILY amlodipine 5 mg tablet 5 mg PO DAILY mycophenolate mofetil 500 mg tablet 1,000 mg PO BID lorazepam 0.5 mg tablet 0.5 mg PO DAILY PRN (Reason: anxiety) pantoprazole 40 mg tablet,delayed release (DR/EC) 40 mg PO BID gabapentin 100 mg capsule 200 mg PO TID albuterol sulfate 90 mcg/actuation HFA aerosol inhaler 1 puff INHALATION Q4H PRN PRN (Reason: dyspnea) ondansetron 4 mg tablet,disintegrating 4 mg PO TID PRN (Reason: nausea and vomiting) Qty: 21 0RF lorazepam [Ativan] 0.5 mg tablet 0.5 mg PO TID PRN (Reason: anxiety) 5 Days Qty: 15 0RF Primary Care Provider: NIKOLAY ELY Referrals: NIKOLAY ELY [Other] - As soon as possible Activity Restrictions/Additional Instructions: Follow-up with your doctor within the next 3 to 4 days. Your creatinine was 2.04 and your BUN was 29, the last creatinine that we had for you was in June and it was 1.06 which is normal. If this is due to dehydration, then staying well-hydrated and drinking plenty of fluids should result in these numbers coming down but they should be checked soon within this next week so that if your kidney function is worsening instead of improving, so it can be addressed as soon as possible. It is reasonable for you to follow-up with your doctor for this since you are tolerating fluids well now, just do your best to stay hydrated. Print Language: Slovak Disposition Disposition: Home, Self Care
[2024-12-09] MEDS: 0.9% Normal Saline (1000mL) 1,000 ML 999 ML IV ×2 (00:23→01:21)
[2024-12-09 00:44] LABS: Internal QC Validated? YES +Cl - CLEAR BKGD; Pregnancy, Serum, hCG Quali. NEGATIVE Negative; Record Kit Lot#, Serum Preg. 0000962302
[2024-12-09 01:06] LABS: Anion Gap 21 (5-15); BUN 29 mg/dL (4-19); BUN/Creat Ratio 14.4 RATIO (10-20); Calcium,Total 10.8 mg/dL (7.6-11.0); Carbon Dioxide 21.0 mmol/L (21.0-32.0); Chloride 97 mmol/L (98-108); Estimated Creatinine Clearance 37.75 ml/min (50-250); Glucose 173 mg/dL (70-99); Potassium 3.6 mmol/L (3.3-5.1)
[2024-12-09] MEDS: Lidocaine 2% Viscous15 ML UDC 15 ML PO (01:21)
[2024-12-09 01:23] VITALS: BP 152/99; PULSE 75; RESP 20; O2SAT 98
[2024-12-09 03:00] VITALS: BP 165/96; PULSE 84; RESP 20; TEMP 36.8; O2SAT 98
== END 2024-12-09 03:15 | disposition home or self-care (01) ==
PROVIDERS: Emergency Provider Emergency Medicine; Visit Provider Emergency Medicine
DX: F41.9 Anxiety disorder, unspecified (principal); N17.9 Acute kidney failure, unspecified; R07.9 Chest pain, unspecified; K21.9 Gastro-esophageal reflux disease without esophagitis; E86.0 Dehydration; R11.15 Cyclical vomiting syndrome unrelated to migraine; Z79.899 Other long term (current) drug therapy; F17.210 Nicotine dependence, cigarettes, uncomplicated; Z90.49 Acquired absence of other specified parts of digestive tract
CPT/HCPCS: 80048; 84703; 96361; 96374; 96375; 99283; A4216; J2405